=== PATIENT | female | born 1960 | race Caucasian/White ===

== ENCOUNTER 2017-02-13 16:09 | Emergency (ER) | payer SELFPAY ==
[~2017-02-13] VITALS: Ht 152.4 cm; Wt 43.7 kg
[~2017-02-13 16:09] MED LIST: ACET25TA4 PO
[2017-02-13 16:17] VITALS: BP 169/88; PULSE 100; RESP 16; TEMP 97.8; O2SAT 96
[2017-02-13 16:32] LABS: BLOOD, URINE NEG (NEG); GLUCOSE,URINE NEG (NEG); KETONE, URINE NEG (NEG); NITRITE,URINE NEG (NEG)
[2017-02-13] MEDS ORDERED: SODIUM CHLOR 0.9% 1000 ML INJ 1,000 ML IV SCH (16:37)
[2017-02-13 16:45] LABS: URINE COLOR YELLOW (YELLW/STRAW)
[2017-02-13] MEDS ORDERED: ACETAMINOPHEN/HYDROcodone 325 MG/5 MG TAB PO ONE (16:45)
[2017-02-13] MEDS ORDERED: SODIUM CHLORIDE 0.9% FLUSH 10 ML FLUSH IV FLUSH PRN (16:45)
[2017-02-13 16:47] LABS: COMMENT (UR) CULT NOT INDICATED; CULTURE IF INDICATED CULT NOT INDICATED; RBC, URINE 0-3 /hpf (0-3); SQUAMOUS EPITHELIAL CELL URINE 0-5 /hpf (0-5); WBC, URINE 0-2 /hpf (0-5)
[2017-02-13 16:55] VITALS: O2SAT 96
[2017-02-13 16:58] LABS: BASOPHIL # 0.3 TH/MM3 (0-0.2); BASOPHIL % 2.5 % (0.0-2.0); EOSINOPHIL # 0.4 TH/MM3 (0-0.4); HEMATOCRIT 44.4 % (35.0-46.0); HEMO FLAGS DIFF FINAL; LYMPHOCYTE # 2.1 TH/MM3 (1.0-4.8); MEAN CELL VOLUME 87.7 FL (80.0-100.0); MEAN CORPUSCULAR HEMOGLOBIN 28.8 PG (27.0-34.0); MEAN CORPUSCULAR HGB CONC 32.8 % (32.0-36.0); MONO % 8.6 % (0.0-8.0); NEUT % 64.9 % (16.0-70.0); PLATELET COUNT 448 TH/MM3 (150-450); RED BLOOD COUNT 5.06 MIL/MM3 (4.00-5.30); RED CELL DISTRIBUTION WIDTH 12.8 % (11.6-17.2); WHITE BLOOD COUNT 10.7 TH/MM3 (4.0-11.0)
[2017-02-13 17:10] LABS: CHLORIDE 110 MEQ/L (98-107); POTASSIUM 5.1 MEQ/L (3.5-5.1); SODIUM (NA) 137 MEQ/L (136-145)
[2017-02-13 17:14] LABS: ANION GAP 8 MEQ/L (5-15); BICARBONATE 19.5 MEQ/L (21.0-32.0); BLOOD UREA NITROGEN 16 MG/DL (7-18)
[2017-02-13 17:17] LABS: ALT (GPT) 15 U/L (10-53); AST (GOT) 26 U/L (15-37); GLOMERULAR FILTRATION RATE 95 ML/MIN (>89)
[2017-02-13 17:18] LABS: TOTAL BILIRUBIN ADULT 0.3 MG/DL (0.2-1.0)
[2017-02-13 17:19] LABS: ALKALINE PHOSPHATASE 159 U/L (45-117)
[2017-02-13] MEDS ORDERED: IOHEXOL 350 MG/ML 10 ML VIAL (for RAD DIAG) IV ONE (17:19)
--- NOTE | 2017-02-13 17:25 | PD ---
HPI Chief Complaint: Abdominal Pain Time Seen by Provider: 16:23 Travel History International Travel<30 days: No Contact w/Intl Traveler<30days: No Traveled to known affect area: No History of Present Illness HPI 46-year-old female arrives complaining of lower abdominal pain for one year. She's also had back pain for the last week or so. She notes that insertion of tampons has become somewhat problematic due to the sensation of a bulge on one side. She's had no vaginal bleeding or discharge. No urinary complaint no nausea vomiting or fever. Abdominal pain is more or less constant mild and achy. Back pain radiates down the right leg. PFSH Past Medical History Medical History: Denies Significant Hx Diminished Hearing: No Immunizations Current: Yes ?: Not Menopausal: Yes : 0 Para: 0 Past Surgical History Surgical History: No Previous Surgery Social History Alcohol Use: Yes (beer couple times per week) Tobacco Use: Yes (1 ppd) Substance Use: No Allergies-Medications (Allergen,Severity, Reaction): Coded Allergies: No Known Allergies (Unverified , 02/13/17) Reported Meds & Prescriptions Reported Meds & Active Scripts Active Lortab (Hydrocodone-Acetaminophen) 5-325 Mg Tab 1-2 Tab PO HS PRN Review of Systems Except as stated in HPI: all other systems reviewed are Neg Physical Exam Narrative GENERAL: 46-year-old female pleasant well-nourished well-developed SKIN: Focused skin assessment warm/dry. HEAD: Atraumatic. Normocephalic. EYES: Pupils equal and round. No scleral icterus. No injection or drainage. ENT: No nasal bleeding or discharge. Mucous membranes pink and moist. NECK: Trachea midline. No JVD. CARDIOVASCULAR: Regular rate and rhythm. No murmur appreciated. RESPIRATORY: No accessory muscle use. Clear to auscultation. Breath sounds equal bilaterally. GASTROINTESTINAL: Soft. No focus of tenderness. No palpable mass. MUSCULOSKELETAL: Ambulatory. No gross deformity. Minimal tenderness overlying the right iliac crest. NEUROLOGICAL: Awake and alert. No obvious cranial nerve deficits. Motor grossly within normal limits. Normal speech. 2+ DTRs. Hip flexion 5 over 5 bilaterally. He flexion and extension 5 over 5 bilaterally. Ankle flexion and extension 5 over 5 bilaterally. Great toe flexion extension 5 over 5 bilaterally. PSYCHIATRIC: Appropriate mood and affect; insight and judgment normal. Data Data Last Documented VS Vital Signs Date Time Temp Pulse Resp B/P Pulse Ox O2 Delivery O2 Flow Rate FiO2 02/13/17 18:43 92 16 152/88 95 02/13/17 16:55 Room Air 02/13/17 16:17 97.8 VS reviewed Orders Urinalysis - C+S If Indicated (02/13/17 16:20) Complete Blood Count With Diff (02/13/17 16:37) Comprehensive Metabolic Panel (02/13/17 16:37) Lipase (02/13/17 16:37) Ct Abd/Pel W Iv Contrast(Rout) (02/13/17 16:37) Iv Access Insert/Monitor (02/13/17 16:37) Ecg Monitoring (02/13/17 16:37) Oximetry (02/13/17 16:37) Sodium Chlor 0.9% 1000 Ml Inj (Ns 1000 M (02/13/17 16:37) Sodium Chloride 0.9% Flush (Ns Flush) (02/13/17 16:45) Acetamin-Hydrocod 325-5 Mg ([place] 5-325 (02/13/17 16:45) Iohexol 350 Inj (Omnipaque 350 Inj) (02/13/17 17:19) Mandatory Outpatient Referral (02/13/17 18:15) Labs Laboratory Tests Test 02/13/17 02/13/17 16:20 16:54 Urine Color YELLOW Urine Turbidity CLEAR Urine pH 6.0 Urine Specific [place] 1.007 Urine Protein NEG mg/dL Urine Glucose (UA) NEG mg/dL Urine Ketones NEG mg/dL Urine Occult Blood NEG Urine Nitrite NEG Urine Bilirubin NEG Urine Leukocyte Esterase NEG Urine RBC 0-3 /hpf Urine WBC 0-2 /hpf Urine Squamous Epithelial 0-5 /hpf Cells Microscopic Urinalysis Comment CULT NOT INDICATED White Blood Count 10.7 TH/MM3 Red Blood Count 5.06 MIL/MM3 Hemoglobin 14.6 GM/DL Hematocrit 44.4 % Mean Corpuscular Volume 87.7 FL Mean Corpuscular Hemoglobin 28.8 PG Mean Corpuscular Hemoglobin 32.8 % Concent Red Cell Distribution Width 12.8 % Platelet Count 448 TH/MM3 Mean Platelet Volume 8.1 FL Neutrophils (%) (Auto) 64.9 % Lymphocytes (%) (Auto) 20.0 % Monocytes (%) (Auto) 8.6 % Eosinophils (%) (Auto) 4.0 % Basophils (%) (Auto) 2.5 % Neutrophils # (Auto) 7.0 TH/MM3 Lymphocytes # (Auto) 2.1 TH/MM3 Monocytes # (Auto) 0.9 TH/MM3 Eosinophils # (Auto) 0.4 TH/MM3 Basophils # (Auto) 0.3 TH/MM3 CBC Comment DIFF FINAL Differential Comment Sodium Level 137 MEQ/L Potassium Level 5.1 MEQ/L Chloride Level 110 MEQ/L Carbon Dioxide Level 19.5 MEQ/L Anion Gap 8 MEQ/L Blood Urea Nitrogen 16 MG/DL Creatinine 0.65 MG/DL Estimat Glomerular Filtration 95 ML/MIN Rate Random Glucose 95 MG/DL Calcium Level 8.5 MG/DL Total Bilirubin 0.3 MG/DL Aspartate Amino Transf 26 U/L (AST/SGOT) Alanine Aminotransferase 15 U/L (ALT/SGPT) Alkaline Phosphatase 159 U/L Total Protein 7.3 GM/DL Albumin 3.1 GM/DL Lipase 147 U/L MDM Medical Decision Making Medical Screen Exam Complete: Yes Emergency Medical Condition: Yes Medical Record Reviewed: Yes Differential Diagnosis Constipation, Gastritis, Acute Cholecystitis, Biliary Colic, Pancreatitis, [place] , Hepatitis, Bowel Obstruction, Cystitis, Mesenteric Ischemia, AAA, Appendicitis , Renal Stone/Hydronephrosis, GERD, perforated viscous Narrative Course CBC & BMP Diagram 02/13/17 16:54 Anion gap is 8 LFTs and Lipase normal UA: No UTI Last 24 hours Impressions Abdomen/Pelvis CT 02/13/17 1637 Signed Impressions: Service Date/Time: Monday, February 13, 2017 17:06 - CONCLUSION: 1. Large midline pelvic mass measuring 11.4 x 9.7 x 9.1 cm consistent with uterine or ovarian neoplasm until proven otherwise. Retroperitoneal and left iliac lymphadenopathy is also noted. Additional studies such as MRI of the pelvis with contrast and PET/CT scan may be helpful for further characterization of this process if clinically indicated. 2. 7 mm low density lesion within the dome of the liver which is too small for accurate density measurement. Dev Jimenez MD case d/w Dr Cadena for nurse obgyn-oncology who is willing to see the patient as an outpatient. Details of work up discussed with the patient who states she will follow up with Dr. Cadena. We reviewed possibility of pelvic neoplasia and patient is aware she may have pelvic cancer. Diagnosis Primary Impression: Pelvic mass in female Referrals: Kaylah Cadena MD Additional Instructions: PLEASE CALL DR CADENA' OFFICE A CALL TOMORROW MORNING FOR A PROMPT APPOINTMENT. IF YOU RUN INTO DIFFICULTY ESTABLISHING FOLLOW UP, RETURN TO THE ER. IF YOU DEVELOP WEAKNESS, INCONTINENCE OR A CHANGE IN BOWEL/BLADDER HABITS, OR NUMBNESS/TINGLING IN THE UNDERWEAR AREA, RETURN TO THE ER RIGHT AWAY. Med/Other Pt SpecificInfo: No Change to Meds Scripts Hydrocodone-Acetaminophen (Lortab)5-325 Mg Tab1-2 Tab PO HS PRN (PAIN SCALE 6 TO 10) #20 TAB Ref 0 Prov:Pablo Grewal MD 02/13/17 Disposition: 01 DISCHARGE HOME Condition: Stable Pablo Grewal MD Feb 13, 2017 17:25
--- NOTE | 2017-02-13 17:46 | RADRPT ---
EXAM DATE/TIME: 02/13/2017 17:06 [facility] COMPARISON: No previous studies available for comparison. INDICATIONS : Pelvic pain. IV CONTRAST: 80 cc Omnipaque 350 (iohexol) IV ORAL CONTRAST: No oral contrast ingested. RADIATION DOSE: 4.45 CTDIvol (mGy) MEDICAL HISTORY : None SURGICAL HISTORY : None. ENCOUNTER: Initial ACUITY: >1 yr PAIN SCALE: 5/10 LOCATION: lower quadrant TECHNIQUE: Volumetric scanning of the abdomen and pelvis was performed. Using automated exposure control and ad justment of the mA and/or kV according to patient size, radiation dose was kept as low as reasonably achievable to obtain optimal diagnostic quality images. DICOM format image data is available electro nically for review and comparison. FINDINGS: There is evidence of a large midline pelvic mass measuring 11.4 x 9.7 x 9.1 cm. Differential diagnos is includes uterine or ovarian neoplasm. Retroperitoneal and left iliac lymphadenopathy is noted. Th e largest retroperitoneal lymph nodes are noted within the aortocaval space measuring 2.6 x 2.0 cm an d the left paraaortic space measuring 1.5 x 0.9 cm. The largest left iliac lymphadenopathy measures 2.0 x 2.0 cm and 2.7 x 1.7 cm. PET/CT scan would be helpful for further evaluation of these findings and can be performed as an outpatient if requested. MRI of the pelvis with contrast may also be use ful to differentiate between uterine and ovarian neoplasm if clinically indicated. The liver is enlarged. There is a 7 mm low density lesion within the dome of the liver which is indet erminate due to its small size. Focal fatty infiltration is noted adjacent to the falciform ligament . No biliary ductal dilatation is noted. The spleen is normal. The pancreas is also normal. The ga llbladder is unremarkable. The adrenal glands are normal bilaterally. The kidneys enhance briskly a nd demonstrate no evidence of focal mass or hydronephrosis. The visualized bowel loops are unremarka ble. The urinary bladder is nondistended and displaced anteriorly secondary to the large pelvic mass . The visualized lung bases are clear. The bony structures are unremarkable. The abdominal aorta is calcified but is not aneurysmally dilated. The inferior vena cava is unremarkable. CONCLUSION: 1. Large midline pelvic mass measuring 11.4 x 9.7 x 9.1 cm consistent with uterine or ovarian neoplas m until proven otherwise. Retroperitoneal and left iliac lymphadenopathy is also noted. Additional studies such as MRI of the pelvis with contrast and PET/CT scan may be helpful for further characteri zation of this process if clinically indicated. 2. 7 mm low density lesion within the dome of the liver which is too small for accurate density measu rement. Dev Jimenez MD on February 13, 2017 at 17:27 Board Certified Radiologist. This report was verified electronically.
[2017-02-13 18:43] VITALS: BP 152/88
[2017-02-13] MEDS ORDERED: HYDR-3533 PO (18:43)
== END 2017-02-13 18:46 | disposition home or self-care (01) ==
LOC: PHED 16:09
DX: R19.00 Intra-abdominal and pelvic swelling, mass and lump, unspecified site (principal); F17.200 Nicotine dependence, unspecified, uncomplicated
CPT/HCPCS: 74177; 80053; 81001; 83690; 85025; 96360; 99285; J7030; Q9967

== ENCOUNTER 2017-03-18 11:26 | Inpatient (IN) | payer OTHER ==
[2017-03-18] VITALS (10 sets, daily range): BP systolic 112–156; BP diastolic 70–91; PULSE 105–125; RESP 16–20; TEMP 97.5–100.7; O2SAT 92–97
[~2017-03-18] VITALS: Ht 152.4 cm; Wt 48.8 kg
[~2017-03-18 11:26] MED LIST changes: -ACET25TA4 PO; +HYDR-3533 PO
[2017-03-18] MEDS ORDERED: VANCOMYCIN INJ 600 MG in SODIUM CHLOR 0.9% 250 ML INJ 250 ML IV STA (12:07)
[2017-03-18] MEDS ORDERED: metroNIDAZOLE 500 MG INJ 100 ML IV STA (12:07)
[2017-03-18] MEDS ORDERED: PIPERACIL-TAZO 4.5 GM PREMIX 100 ML IV STA (12:07)
[2017-03-18 12:14] LABS: AUTOMATED NEUTROPHIL # 20.3 TH/MM3 (1.8-7.7); BASOPHIL # 0.2 TH/MM3 (0-0.2); BASOPHIL % 1.1 % (0.0-2.0); HEMATOCRIT 42.3 % (35.0-46.0); LYMPHOCYTE # 0.4 TH/MM3 (1.0-4.8); MEAN CELL VOLUME 85.8 FL (80.0-100.0); MEAN CORPUSCULAR HEMOGLOBIN 28.1 PG (27.0-34.0); MEAN CORPUSCULAR HGB CONC 32.8 % (32.0-36.0); MONO % 2.8 % (0.0-8.0); NEUT % 94.1 % (16.0-70.0); PLATELET COUNT 295 TH/MM3 (150-450); RED BLOOD COUNT 4.94 MIL/MM3 (4.00-5.30); RED CELL DISTRIBUTION WIDTH 12.4 % (11.6-17.2); WHITE BLOOD COUNT 21.5 TH/MM3 (4.0-11.0)
--- NOTE | 2017-03-18 12:14 | PD ---
HPI Chief Complaint: Abdominal Pain Time Seen by Provider: 11:44 Travel History International Travel<30 days: No Contact w/Intl Traveler<30days: No Traveled to known affect area: No History of Present Illness HPI This 57-year-old female is complaining of abdominal pain and vomiting. This lady has been having vaginal bleeding for about a year and a half. She was found to have a large pelvic mass. On March 14 she had examination under anesthesia, cystoscopy and proctoscopy as well as a biopsy of the mass via endocervical/endometrial biopsy. During cystoscopy the bladder never distended and there was concern that there may be a defect in the bladder possibly communicating with the tumor or the peritoneal cavity. Proctosigmoidoscopy July 03 centimeters showed extrinsic compression which precluded evaluation beyond that point. Biopsy of the mass was done and the results come back. 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 The patient says she has not been able to hold anything down since leaving the hospital. She is complaining of diffuse abdominal pain. PFSH Past Medical History Cancer: No Cardiovascular Problems: No Diabetes: No Diminished Hearing: No Endocrine: No Gastrointestinal Disorders: Yes (abdominal pain ) Genitourinary: No Hepatitis: No Hiatal Hernia: No Immune Disorder: No Musculoskeletal: No Neurologic: No Psychiatric: No Immunizations Current: Yes Thyroid Disease: No Influenza Vaccination: No ?: Not Menopausal: Yes : 0 Para: 0 Dilation and Curettage (D&C): Yes (monday) Past Surgical History Abdominal Surgery: No AICD: No Cardiac Surgery: No Ear Surgery: No Endocrine Surgery: No Eye Surgery: No Genitourinary Surgery: No Gynecologic Surgery: No Joint Replacement: No Oral Surgery: Yes (tonsillectomy) Pacemaker: No Thoracic Surgery: No Social History Alcohol Use: No Tobacco Use: Yes (1 ppd) Substance Use: No Allergies-Medications (Allergen,Severity, Reaction): Uncoded Allergies: ADHESIVES (Allergy, Unknown, rash, 03/14/17) Reported Meds & Prescriptions Reported Meds & Active Scripts Active Lortab (Hydrocodone-Acetaminophen) 5-325 Mg Tab 1-2 Tab PO HS PRN Review of Systems General / Constitutional: No: Fever, Chills Eyes: No: Diploplia, Blurred Vision HENT: No: Headaches, Vertigo Cardiovascular: No: Chest Pain or Discomfort, Palpitations Respiratory: No: Cough Gastrointestinal: Positive: Nausea, Vomiting, Diarrhea, Abdominal Pain Genitourinary: Positive: Vaginal Bleeding, No: Urgency, Frequency Musculoskeletal: No: Myalgias, Arthralgias Skin: No Rash Neurologic: No: Weakness, Dizziness Endocrine: No: Cold Intolerance Hematologic/Lymphatic: No: Easy Bruising Physical Exam Narrative GENERAL: [-] And chronically ill-appearing female SKIN: Focused skin assessment warm/dry. HEAD: Atraumatic. Normocephalic. EYES: Pupils equal and round. No scleral icterus. No injection or drainage. ENT: No nasal bleeding or discharge. Mucous membranes pink and moist. NECK: Trachea midline. No JVD. CARDIOVASCULAR: Regular rate and rhythm. No murmur appreciated. RESPIRATORY: No accessory muscle use. Clear to auscultation. Breath sounds equal bilaterally. GASTROINTESTINAL: Abdomen flat it is not distended. It is diffusely tender MUSCULOSKELETAL: No obvious deformities. No clubbing. No cyanosis. No edema. NEUROLOGICAL: Awake and alert. No obvious cranial nerve deficits. Motor grossly within normal limits. Normal speech. PSYCHIATRIC: Appropriate mood and affect; insight and judgment normal. Data Data Last Documented VS Vital Signs Date Time Temp Pulse Resp B/P (MAP) Pulse Ox O2 Delivery O2 Flow Rate FiO2 03/18/17 13:25 99.0 114 20 141/89 (106) 93 Room Air Orders Orders Complete Blood Count With Diff (03/18/17 11:55) Comprehensive Metabolic Panel (03/18/17 11:55) Prothrombin Time / Inr (Pt) (03/18/17 11:55) Act Partial Throm Time (Ptt) (03/18/17 11:55) Lactic Acid Sepsis Protocol (03/18/17 11:55) Urinalysis - C+S If Indicated (03/18/17 11:55) Blood Culture (03/18/17 11:55) Chest, Single Ap (03/18/17 11:55) Ecg Monitoring (03/18/17 11:55) Iv Access Insert/Monitor (03/18/17 11:55) Oximetry (03/18/17 11:55) Sodium Chlor 0.9% 1000 Ml Inj (Ns 1000 M (03/18/17 12:15) Sodium Chlor 0.9% 1000 Ml Inj (Ns 1000 M (03/18/17 12:15) Ondansetron Inj (Zofran Inj) (03/18/17 12:15) Hydromorphone Pf Inj (Dilaudid Pf Inj) (03/18/17 12:15) Ct Abd/Pel W Iv Contrast(Rout) (03/18/17 12:05) Type And Screen (03/18/17 12:05) Vancomycin Inj (Vancomycin Inj) (03/18/17 12:07) Piperacil-Tazo 4.5 Gm Premix (Zosyn 4.5 (03/18/17 12:07) Metronidazole 500 Mg Inj (Flagyl 500 Mg (03/18/17 12:07) Sodium Chlor 0.9% 1000 Ml Inj (Ns 1000 M (03/18/17 12:45) Sodium Chlor 0.9% 1000 Ml Inj (Ns 1000 M (03/18/17 12:45) Urine Culture (03/18/17 12:55) Labs Laboratory Tests Test 03/18/17 11:55 03/18/17 12:55 White Blood Count 21.5 TH/MM3 Red Blood Count 4.94 MIL/MM3 Hemoglobin 13.9 GM/DL Hematocrit 42.3 % Mean Corpuscular Volume 85.8 FL Mean Corpuscular Hemoglobin 28.1 PG Mean Corpuscular Hemoglobin Concent 32.8 % Red Cell Distribution Width 12.4 % Platelet Count 295 TH/MM3 Mean Platelet Volume 8.5 FL Neutrophils (%) (Auto) 94.1 % Lymphocytes (%) (Auto) 2.0 % Monocytes (%) (Auto) 2.8 % Eosinophils (%) (Auto) 0.0 % Basophils (%) (Auto) 1.1 % Neutrophils # (Auto) 20.3 TH/MM3 Lymphocytes # (Auto) 0.4 TH/MM3 Monocytes # (Auto) 0.6 TH/MM3 Eosinophils # (Auto) 0.0 TH/MM3 Basophils # (Auto) 0.2 TH/MM3 CBC Comment AUTO DIFF Differential Comment AUTO DIFF CONFIRMED Prothrombin Time 12.7 SEC Prothromb Time International Ratio 1.1 RATIO Activated Partial Thromboplast Time 35.8 SEC Blood Urea Nitrogen 21 MG/DL Creatinine 0.86 MG/DL Random Glucose 155 MG/DL Total Protein 7.6 GM/DL Albumin 2.8 GM/DL Calcium Level 8.7 MG/DL Alkaline Phosphatase 162 U/L Aspartate Amino Transf (AST/SGOT) 28 U/L Alanine Aminotransferase (ALT/SGPT) 25 U/L Total Bilirubin 0.4 MG/DL Sodium Level 126 MEQ/L Potassium Level 3.5 MEQ/L Chloride Level 93 MEQ/L Carbon Dioxide Level 20.7 MEQ/L Anion Gap 12 MEQ/L Estimat Glomerular Filtration Rate 69 ML/MIN Lactic Acid Level 1.3 mmol/L Urine Collection Type CATH Urine Color YELLOW Urine Turbidity CLOUDY Urine pH 6.0 Urine Specific [place] 1.016 Urine Protein 100 mg/dL Urine Glucose (UA) NEG mg/dL Urine Ketones 15 mg/dL Urine Occult Blood LARGE Urine Nitrite POS Urine Bilirubin NEG Urine Leukocyte Esterase MOD Urine RBC 0-3 /hpf Urine WBC 25-49 /hpf Urine Bacteria MANY /hpf Microscopic Urinalysis Comment CULTURE INDICATED MDM Medical Decision Making Medical Screen Exam Complete: Yes Emergency Medical Condition: Yes Medical Record Reviewed: Yes Differential Diagnosis Differential includes sepsis, dehydration Narrative Course Chest x-ray shows bilateral emphysematous changes, left greater than right. It is similar to her previous x-ray area hemoglobin is 13.9 with a white count of 21.8. Sodium is 126 with potassium of 3.5. V1 is 21 with creatinine of 0.8. Lactate level is 1.3. Patient has been started on IV fluids and antibiotics. Urinalysis shows 25-[address] shows large pelvic mass not significantly changed. The right ureter is now obstructed distally there is mild hydronephrosis with associated swelling in the leg nephrogram on the right there is trace free fluid in the cul-de-sac no perceptible abscess Esteban Mckenzie MD Mar 18, 2017 12:14
[2017-03-18 12:15] LABS: HEMO FLAGS AUTO DIFF
[2017-03-18] MEDS ORDERED: ONDANSETRON HCL 4 MG/2 ML VIAL IV PUSH ONE (12:15)
[2017-03-18] MEDS ORDERED: HYDROmorphone HCL PF 1 MG/ML VIAL IV PUSH ONE ×2 (12:15→14:00)
[2017-03-18] MEDS ORDERED: SODIUM CHLOR 0.9% 1000 ML INJ 1,000 ML IV ONE ×4 (12:15→12:45)
[2017-03-18 12:22] LABS: CHLORIDE 93 MEQ/L (98-107); POTASSIUM 3.5 MEQ/L (3.5-5.1); SODIUM (NA) 126 MEQ/L (136-145)
--- NOTE | 2017-03-18 12:23 | RADRPT ---
EXAM DATE/TIME: 03/18/2017 12:10 [facility] COMPARISON: CHEST PA & LAT, March 09, 2017, 11:36. INDICATIONS : Chest pain, abdomen pain, vomiting, fever MEDICAL HISTORY : None. SURGICAL HISTORY : None. ENCOUNTER: Initial ACUITY: 4 - 6 days PAIN SCORE: 8/10 LOCATION: Bilateral chest FINDINGS: Left greater than right upper lobe predominant emphysema again noted. No acute infiltrate. No pleural effusion or pneumothorax. Heart size stable, within normal limits. CONCLUSION: Emphysema. No evidence of acute cardiopulmonary disease. Mateo Costa MD on March 18, 2017 at 12:20 Board Certified Radiologist. This report was verified electronically.
[2017-03-18 12:25] LABS: ANION GAP 12 MEQ/L (5-15); BICARBONATE 20.7 MEQ/L (21.0-32.0)
[2017-03-18 12:26] LABS: BLOOD UREA NITROGEN 21 MG/DL (7-18)
[2017-03-18 12:27] LABS: APTT (PATIENT) 35.8 SEC (24.3-30.1); INTERNATIONAL NORMALIZED RATIO 1.1 RATIO; PROTHROMBIN TIME - PATIENT 12.7 SEC (9.8-11.6)
[2017-03-18 12:28] LABS: ALT (GPT) 25 U/L (10-53); AST (GOT) 28 U/L (15-37); GLOMERULAR FILTRATION RATE 69 ML/MIN (>89)
[2017-03-18 12:30] LABS: TOTAL BILIRUBIN ADULT 0.4 MG/DL (0.2-1.0)
[2017-03-18 12:31] LABS: ALKALINE PHOSPHATASE 162 U/L (45-117)
[2017-03-18 12:45] LABS: SCAN/DIFF AUTO DIFF CONFIRMED
[2017-03-18 13:01] LABS: BLOOD, URINE LARGE (NEG); GLUCOSE,URINE NEG (NEG); KETONE, URINE 15 mg/dL (NEG); NITRITE,URINE POS (NEG)
[2017-03-18 13:03] LABS: METHOD OF COLLECTION CATH; URINE COLOR YELLOW (YELLW/STRAW)
[2017-03-18 13:06] LABS: BACTERIA, URINE MANY /hpf; COMMENT (UR) CULTURE INDICATED; CULTURE IF INDICATED CULTURE INDICATED; RBC, URINE 0-3 /hpf (0-3)
--- NOTE | 2017-03-18 13:34 | RADRPT ---
EXAM DATE/TIME: 03/18/2017 13:02 [facility] COMPARISON: CT ABDOMEN & PELVIS W CONTRAST, February 13, 2017, 17:06. INDICATIONS : Vaginal bleeding post D&C, abdominal pain.Nausea, vomiting. IV CONTRAST: 90 cc Omnipaque 350 (iohexol) IV ORAL CONTRAST: No oral contrast ingested. RADIATION DOSE: 4.44 CTDIvol (mGy) MEDICAL HISTORY : Newly diagnosed with tumor in her pelvis. SURGICAL HISTORY : Tonsillectomy. DC this past Monday for post menopausal bleeding. ENCOUNTER: Initial ACUITY: 1 day PAIN SCALE: 8/10 LOCATION: Bilateral abdomen TECHNIQUE: Volumetric scanning of the abdomen and pelvis was performed. Using automated exposure control and ad justment of the mA and/or kV according to patient size, radiation dose was kept as low as reasonably achievable to obtain optimal diagnostic quality images. DICOM format image data is available electro nically for review and comparison. FINDINGS: Large heterogeneous pelvic mass again noted, measures proximally 10.7 x 11.1 x 9.8 cm, not significan tly larger in the interim. There is associated mass effect on adjacent pelvic structures, including t he urinary bladder. There is some air in the urinary bladder, nonspecific but presumably from recent instrumentation/catheterization. There is trace free fluid in the pelvic cul-de-sac, new. Mild hydronephrosis and hydroureter has developed on the right and appears to be related to extrinsic compression. I don't clearly see a renal or ureteral calculus. The right kidney is swollen and has a delayed nephrogram relative to the left. Retroperitoneal lymphadenopathy again noted. Just above the level of the bifurcation is an aortocaval lymph node that measures approximately 2.9 x 3.0 cm in size and causes some narrowing of the adjacen t IVC, similar to before. Further superior, there is a 2.0 x 3.0 cm retrocaval lymph node that encase s and narrows the right renal arteries, series 2 image 23. There is a dual origin of the right renal artery. The more inferior renal artery is more prominently narrowed. There is a 18 x 27 mm left commo n iliac lymph node, also similar to before. Liver, spleen, pancreas, adrenal glands and left kidney are without acute abnormality. Subcentimeter hypodensity of the right hepatic lobe is stable, most likely a benign cyst. Clear lung bases. No lytic or sclerotic lesion seen of the visualized osseous structures. CONCLUSION: 1. Large heterogeneous pelvic mass is not significantly changed in size. 2. Right ureter is now obstructed distally. Mild hydronephrosis now seen and with associated swelling and delayed nephrogram of the right kidney. Retroperitoneal lymphadenopathy narrowing the 2 right re nal arteries may also be contributing to the delayed nephrogram. 3. Metastatic retroperitoneal lymphadenopathy again noted, similar to before. Most of the nodes appea r partly necrotic. 4. Trace free fluid now seen in the pelvic cul-de-sac. No perceptible abscess. 5. Subcentimeter hypodensity of the liver is unchanged and most likely a benign cyst. Mateo Costa MD on March 18, 2017 at 13:19 Board Certified Radiologist. This report was verified electronically.
[2017-03-18] MEDS ORDERED: IOHEXOL 350 MG/ML 10 ML VIAL (for RAD DIAG) IVCONTRAST ONE (13:45)
[2017-03-18] MEDS ORDERED: Vancomycin Consult Pharmacy 1 EA OTHER SCH (14:15)
[2017-03-18] MEDS ORDERED: HYDROmorphone HCL PF 1 MG/ML VIAL IV PRN (14:15)
[2017-03-18] MEDS ORDERED: NALOXONE HCL 0.4 MG/ML AMP IV PRN (14:15)
[2017-03-18] MEDS: PANTOPRAZOLE SODIUM 40 MG VIAL IV PUSH SCH (15:24)
--- NOTE | 2017-03-18 16:12 | HHI.HP ---
HPI Service [facility] Primary Care Physician Kristan Hagan MD Admission Diagnosis UTI, SEPSIS, R HYDRONEPHROSIS Diagnoses: Chief Complaint: Nausea, vomiting and abdominal pain Travel History International Travel<30 Days: No Contact w/Intl Traveler <30 Da: No Traveled to Known Affected Are: No History of Present Illness This is a 57-year-old female who has been recently diagnosed with uterine carcinosarcoma. 4 days ago under anesthesia, she had cystoscopy, proctoscopy and endocervical/endometrial mass biopsy because of chronic vaginal bleeding. During cystoscopy, the bladder never distended and there was concern that there may be a defect in the bladder possibly communicating with the tumor or the peritoneal cavity. Proctosigmoidoscopy showed extrinsic compression which precluded evaluation beyond that point. Patient returns to the emergency department because of persistent nausea, vomiting and constant sharp severe generalized abdominal pain associated with burning upon urination, weakness, dizziness and feeling warm. Repeat CT of the abdomen and pelvis shows pelvic mass not significant change but right ureter is not obstructed with mild hydronephrosis and trace fluid in the cul-de-sac. Dr. Clifton recommended transfer to the main hospital and admission to the medical service and consult to . When I examined the patient, she complained of difficulty breathing. She was tachypneic with coarse breath sounds with crackles all the way up. She received a total of 4 L in the emergency department. All other systems reviewed negative Review of Systems Except as stated in HPI: all other systems reviewed are Neg Past Family Social History Past Medical History As previously mentioned Past Surgical History As previously mentioned. Tonsillectomy Reported Medications Lortab (Hydrocodone-Acetaminophen) 5-325 Mg Tab 1-2 Tab PO HS PRN Allergies: Uncoded Allergies: ADHESIVES (Allergy, Unknown, rash, 03/14/17) Family History No cancer Social History Condition smoke a pack per day. Does not drink Physical Exam Vital Signs Vital Signs Date Time Temp Pulse Resp B/P (MAP) Pulse Ox O2 Delivery O2 Flow Rate FiO2 03/18/17 16:05 94 Nasal Cannula 2.00 03/18/17 15:12 99.2 105 18 115/74 (88) 94 Nasal Cannula 2.00 03/18/17 14:39 109 20 117/70 (86) 95 Room Air 03/18/17 13:25 99.0 114 20 141/89 (106) 93 Room Air 03/18/17 12:32 96 Room Air 03/18/17 12:32 110 16 150/91 (110) 96 Room Air 03/18/17 11:36 98.5 120 18 143/71 (95) 94 Physical Exam GENERAL: This is a well-nourished, well-developed patient, in distress due to pain and shortness of breath SKIN: No rashes, ecchymoses or lesions. Cool and dry. HEAD: Atraumatic. Normocephalic. No temporal or scalp tenderness. EYES: Pupils equal round and reactive. Extraocular motions intact. No scleral icterus. No injection or drainage. ENT: Nose without bleeding, purulent drainage or septal hematoma. Throat without erythema, tonsillar hypertrophy or exudate. Uvula midline. Airway patent. NECK: Trachea midline. No JVD or lymphadenopathy. Supple, nontender, no meningeal signs. CARDIOVASCULAR: Tachycardic. RESPIRATORY: Coarse breath sounds with crackles all the way up GASTROINTESTINAL: Abdomen soft, generalized tenderness, nondistended. No guarding. MUSCULOSKELETAL: Extremities without clubbing, cyanosis, or edema. No joint tenderness, effusion, or edema noted. No calf tenderness. Negative Homans sign bilaterally. NEUROLOGICAL: Awake and alert. Cranial nerves II through XII intact. Motor and sensory grossly within normal limits. Five out of 5 muscle strength in all muscle groups. Normal speech. Laboratory Laboratory Tests Test 03/18/17 11:55 03/18/17 12:55 White Blood Count 21.5 Red Blood Count 4.94 Hemoglobin 13.9 Hematocrit 42.3 Mean Corpuscular Volume 85.8 Mean Corpuscular Hemoglobin 28.1 Mean Corpuscular Hemoglobin Concent 32.8 Red Cell Distribution Width 12.4 Platelet Count 295 Mean Platelet Volume 8.5 Neutrophils (%) (Auto) 94.1 Lymphocytes (%) (Auto) 2.0 Monocytes (%) (Auto) 2.8 Eosinophils (%) (Auto) 0.0 Basophils (%) (Auto) 1.1 Neutrophils # (Auto) 20.3 Lymphocytes # (Auto) 0.4 Monocytes # (Auto) 0.6 Eosinophils # (Auto) 0.0 Basophils # (Auto) 0.2 CBC Comment AUTO DIFF Differential Comment AUTO DIFF CONFIRMED Prothrombin Time 12.7 Prothromb Time International Ratio 1.1 Activated Partial Thromboplast Time 35.8 Blood Urea Nitrogen 21 Creatinine 0.86 Random Glucose 155 Total Protein 7.6 Albumin 2.8 Calcium Level 8.7 Alkaline Phosphatase 162 Aspartate Amino Transf (AST/SGOT) 28 Alanine Aminotransferase (ALT/SGPT) 25 Total Bilirubin 0.4 Sodium Level 126 Potassium Level 3.5 Chloride Level 93 Carbon Dioxide Level 20.7 Anion Gap 12 Estimat Glomerular Filtration Rate 69 Lactic Acid Level 1.3 Urine Collection Type CATH Urine Color YELLOW Urine Turbidity CLOUDY Urine pH 6.0 Urine Specific [place] 1.016 Urine Protein 100 Urine Glucose (UA) NEG Urine Ketones 15 Urine Occult Blood LARGE Urine Nitrite POS Urine Bilirubin NEG Urine Leukocyte Esterase MOD Urine RBC 0-3 Urine WBC 25-49 Urine Bacteria MANY Microscopic Urinalysis Comment CULTURE INDICATED Date/Time Source Procedure Growth Status 03/18/17 12:05 Blood Peripheral Aerobic Blood Culture Pending Received 03/18/17 12:05 Blood Peripheral Anaerobic Blood Culture Pending Received 03/18/17 12:55 Urine Catheterized Urine Urine Culture Pending Received Result Diagram: 03/18/17 1155 03/18/17 1155 Imaging Last Impressions Abdomen/Pelvis CT 03/18/17 1205 Signed Impressions: Service Date/Time: Saturday, March 18, 2017 13:02 - CONCLUSION: 1. Large heterogeneous pelvic mass is not significantly changed in size. 2. Right ureter is now obstructed distally. Mild hydronephrosis now seen and with associated swelling and delayed nephrogram of the right kidney. Retroperitoneal lymphadenopathy narrowing the 2 right renal arteries may also be contributing to the delayed nephrogram. 3. Metastatic retroperitoneal lymphadenopathy again noted, similar to before. Most of the nodes appear partly necrotic. 4. Trace free fluid now seen in the pelvic cul-de-sac. No perceptible abscess. 5. Subcentimeter hypodensity of the liver is unchanged and most likely a benign cyst. Mateo Costa MD Chest X-Ray 03/18/17 1155 Signed Impressions: Service Date/Time: Saturday, March 18, 2017 12:10 - CONCLUSION: Emphysema. No evidence of acute cardiopulmonary disease. MD Carlos Will VTE Risk Assessment Caprini VTE Risk Assessment: Mod/High Risk (score >= 2) Caprini Risk Assessment Model Point Value = 1 Point Value = 2 Point Value = 3 Point Value = 5 Age 41-60 Minor surgery BMI > 25 kg/m2 Swollen legs Varicose veins or History of unexplained or recurrent spontaneous Oral contraceptives or hormone replacement Sepsis (< 1 month) Serious lung disease, including pneumonia (< 1 month) Abnormal pulmonary function Acute myocardial infarction Congestive heart failure (< 1 month) History of inflammatory bowel disease Medical patient at bed rest Age 61-74 Arthroscopic surgery Major open surgery (> 45 min) Laparoscopic surgery (> 45 min) Malignancy Confined to bed (> 72 hours) Immobilizing plaster cast Central venous access Age >= 75 History of VTE Family history of VTE Factor V Leiden Prothrombin [id number] Lupus anticoagulant Anticardiolipin antibodies Elevated serum homocysteine Heparin-induced thrombocytopenia Other congenital or acquired thrombophilia Stroke (< 1 month) Elective arthroplasty Hip, pelvis, or leg fracture Acute spinal cord injury (< 1 month) Prophylaxis Regimen Total Risk Factor Score Risk Level Prophylaxis Regimen 0-1 Low Early ambulation 2 Moderate Order ONE of the following: *Sequential Compression Device (SCD) *Heparin 5000 units SQ BID 3-4 Higher Order ONE of the following medications: *Heparin 5000 units SQ TID *Enoxaparin/Lovenox 40 mg SQ daily (WT < 150 kg, CrCl > 30 mL/min) *Enoxaparin/Lovenox 30 mg SQ daily (WT < 150 kg, CrCl > 10-29 mL/min) *Enoxaparin/Lovenox 30 mg SQ BID (WT < 150 kg, CrCl > 30 mL/min) AND/OR *Sequential Compression Device (SCD) 5 or more Highest Order ONE of the following medications: *Heparin 5000 units SQ TID (Preferred with Epidurals) *Enoxaparin/Lovenox 40 mg SQ daily (WT < 150 kg, CrCl > 30 mL/min) *Enoxaparin/Lovenox 30 mg SQ daily (WT < 150 kg, CrCl > 10-29 mL/min) *Enoxaparin/Lovenox 30 mg SQ BID (WT < 150 kg, CrCl > 30 mL/min) AND *Sequential Compression Device (SCD) Assessment and Plan Problem List: (1) Post-menopausal bleeding ICD Code: N95.0 - Postmenopausal bleeding Status: Acute (2) Pelvic mass in female ICD Code: R19.00 - Pelvic mass in female Status: Acute Assessment and Plan This is a 57-year-old female who has been recently diagnosed with uterine carcinosarcoma. 4 days ago under anesthesia, she had cystoscopy, proctoscopy and endocervical/endometrial mass biopsy because of chronic vaginal bleeding. During cystoscopy, the bladder never distended and there was concern that there may be a defect in the bladder possibly communicating with the tumor or the peritoneal cavity. Proctosigmoidoscopy showed extrinsic compression which precluded evaluation beyond that point. Patient returns to the emergency department because of persistent nausea, vomiting and constant sharp severe generalized abdominal pain associated with burning upon urination, weakness, dizziness and feeling warm. Repeat CT of the abdomen and pelvis shows pelvic mass not significant change but right ureter is not obstructed with mild hydronephrosis and trace fluid in the cul-de-sac. Sepsis secondary to UTI. Possible fistula involving the bladder with the tumor or peritoneal cavity. Patient received IV vancomycin and Zosyn which we will continue. Follow-up blood and urine cultures. Hyponatremia secondary to vomiting. Continue normal saline infusion. Repeat BMP and magnesium in the morning Uterine cancer with obstructive uropathy. Pain management with IV Dilaudid. Consult for stenting or nephrostomy tube and radiation oncology DVT prophylaxis with SCD. Pharmacological prophylaxis contraindicated at this time secondary to ongoing [employer] bleeding Discussed Condition With Patient, ER staff and Boubacar Alfaro MD Mar 18, 2017 16:12
[2017-03-18] MEDS ORDERED: RESP: ALBUTEROL 0.63 MG/3 ML NEB (PRN) NEB (16:15)
[2017-03-18] MEDS ORDERED: FUROSEMIDE 20 MG/2 ML VIAL IV PUSH ONE (16:15)
[2017-03-18] MEDS ORDERED: POTASSIUM CHLOR 20 MEQ PREMIX 100 ML IV ONE (16:15)
--- NOTE | 2017-03-18 16:32 | RADRPT ---
EXAM DATE/TIME: 03/18/2017 16:21 [facility] COMPARISON: CHEST SINGLE AP, March 18, 2017, 12:10. INDICATIONS : Congestive heart failure. MEDICAL HISTORY : Emphysema. SURGICAL HISTORY : None. ENCOUNTER: Subsequent ACUITY: 4 - 6 days PAIN SCORE: 9/10 LOCATION: Bilateral chest FINDINGS: Single AP portable upright view the chest again demonstrates an area of bullous emphysema within the left upper lobe. The remainder of the lungs are clear. Heart size is normal. Pulmonary vasculature is normal. Osseous structures are unremarkable. CONCLUSION: Stable appearance of bullous emphysema involving the left upper lobe. No evidence of acute cardiopulm onary disease. No radiographic findings to suggest congestive heart failure. Sonal Allen MD on March 18, 2017 at 16:29 Board Certified Radiologist. This report was verified electronically.
--- NOTE | 2017-03-18 17:53 | MB ---
cc: YAJAIRA CADENA MD, KARLA A. MD RAO, SURYA P. MD ABANDO,BOUBACAR [place] MD DATE OF CONSULTATION 03/18/[address] Boubacar Goss. REASON FOR CONSULTATION The patient known to you with large pelvic tumor. REASON FOR ADMISSION Sepsis, pain, failure to thrive, nausea, vomiting, dehydration. HISTORY OF PRESENT ILLNESS This is a 57-year-old female who we just recently met in the office in recent weeks, found on exam and imaging to have an extensive solid pelvic mass that occupied the entire pelvis with extrinsic compression on all structures seemingly extending from sidewall to sidewall. There is also significant retroperitoneal adenopathy some of which is partially necrotic. The adenopathy extends from the pelvis as well as the periaortic and pericaval region including adenopathy near the renal vessels with some narrowing of the renal vessels. Tissue diagnosis was not obtained yet when we met her in recent office consult and so this week she underwent biopsies of the central pelvic mass. The exam confirmed a large fixed mass in the pelvis extending from pelvic sidewall to pelvic sidewall of probable uterine origin. The cervix itself was small and appeared normal. The uterus was completely replaced with tumor. Pathology returned poorly differentiated malignant neoplasm, necrotic and fibrotic tissue and pattern and staining suggests that this may be a carcinosarcoma. Cystoscopy was unable to clearly visualize the bladder, unable to adequately distend the bladder suggesting that there might be tumor invasion into the bladder or communication between the bladder and the peritoneal cavity. Proctoscopy was able to visualize to a depth of 11 cm and, after that, the large fixed tumor precluded visibility above 11 cm with profound extrinsic compression on the bowel, possible invasion into the bowel. She has been feeling poorly for many weeks, but reports in the last day or so the pain worsened in her pelvis, abdomen and referred to her back and she has had nausea with vomiting, not able to keep any liquids down. As she was feeling worse, she presented to the emergency room. She is seen in the emergency room where imaging is repeated which shows the aforementioned findings but also a change from a recent prior scan is that there is now hydronephrosis, partial obstruction to the right ureter. The large mass and adenopathy is again noted. A small amount of fluid is noted in the pelvic cul-de-sac. There is no intraperitoneal free air. No obvious intraperitoneal bleeding. Labs on admission are notable for an elevated white count at 21.5, H&H are 13.9 and 42.3, platelet count 295. She has a shift to the neutrophil count 94%. Electrolytes are notable for a low sodium 126, BUN and creatinine are 21 and 0.86, potassium 3.5 and transaminases are not elevated, alkaline phosphatase 162. Cultures have been drawn, results pending, of the urine and blood. She is seen now in the emergency room in consultation for further evaluation and recommendations regarding these findings. PAST MEDICAL HISTORY 1. Chronic obstructive pulmonary disease/emphysema and asthma 2. Recent diagnosis of uterine carcinosarcoma with extensive disease and metastasis as described above. PAST SURGICAL HISTORY Remarkable for cystoscopy, proctoscopy, biopsies. SOCIAL HISTORY She is . She is a regular user of tobacco. FAMILY HISTORY Noncontributory from an oncology standpoint. GYNECOLOGIC HISTORY As above. Recent diagnosis of uterine carcinosarcoma. She went through menopause age 48. ALLERGIES NO KNOWN DRUG ALLERGIES. MEDICATIONS Percocet. REVIEW OF SYSTEMS As per history of present illness. a lot of her symptoms have been preexisting, but the nausea and vomiting, inability to keep liquids down is recent. The pelvic pain and back pain that were preexisting but they are more intense. She has had postmenopausal bleeding. She has not had any hematuria. No melanotic change or bright red blood per rectum. No chest pain or shortness of breath, although she feels anxious when she is not feeling well or when she is in pain. She does not believe she has been febrile. No joint pain or stiffness. PHYSICAL EXAMINATION VITAL SIGNS: She has been afebrile since presentation. Current temperature 99.2, pulse ranging from 85-120, respirations 16-20, blood pressure 115-153/71-89, O2 saturations 94% on 2 liters. GENERAL: She is uncomfortable, anxious in mild discomfort and distress but no cardiac or pulmonary distress. HEENT: Mucous membranes dry. Skin is dry. External lymph node survey negative. LUNGS: Clear, mild rales at the bases. CARDIOVASCULAR: Rapid regular rate and rhythm. ABDOMEN: Nonacute nontender in the right and left upper quadrant, some tenderness in the lower mid abdomen, discomfort, nonacute. BACK: There is no spinal point tenderness. There is reproducible right CVA tenderness. Mild left CVA tenderness. PELVIC: Exam deferred given exam done just a few days ago. EXTREMITIES: No palpable cords. NEUROLOGIC: Intact. Discussion is held with Mylene Jara reviewing the findings in her case today. I am sorry she is feeling poorly. It is our hope that we can address the issues and get her feeling better. I explained that acutely the most likely source of her feeling worse than baseline is an infection. It appears as though she has a urinary tract infection, quite possibly sepsis associated with urinary tract infection, as there is an obstruction and perhaps a closed loop infection in the right renal system. In talking with Dr. Goss, it is my understanding urology has been consulted to see if it is possible to pass a stent on the right side, and if not possible, then she may need a right percutaneous nephrostomy to alleviate the obstruction and probable side of infection and/or to preserve renal function. I explained that recent biopsy shows a carcinosarcoma. This confirms the tissue diagnosis that is consistent with the extensive disease that we have previously discussed and again discussed based on recent CAT scan and the overall difficult set of circumstances that this presents. I explained why hysterectomy or any surgical intervention to address the tumor is not feasible. It has grown through the wall of the uterus and cervix and infiltrated into surrounding tissues all the way to the pelvic sidewalls so much so that it is causing obstruction to the right ureter. Furthermore, there is extensive metastatic disease with retroperitoneal adenopathy including adenopathy near the renal vessels that is causing some compromise to the renal vessels. She is in favor of trying to palliate this disease aggressively. I think the first and best course of action would be to consider radiation therapy to the pelvis to try to reduce the tumor burden and prevent further ureteral obstruction and to stop the bleeding and it maybe prudent to consider radiation to the adenopathy, especially the adenopathy that is causing some compromise to the renal vessels. Accordingly, consult for radiation oncology will be placed. After maximum palliative rarely radiation has been given, we will discuss further the potential value was well as the potential difficulties using systemic chemotherapy to address the metastatic disease, but certainly are of immediate objectives are to get her feeling better to resolve the infection before any initiation of treatment for the cancer. Discussion ensued, questions were answered. She expressed good understanding. ASSESSMENT 1. Stage IV uterine carcinosarcoma with the extent of disease as described above. 2. Probable urosepsis right hydronephrosis due to the pelvic tumor. 3. I believe her symptoms are either directly or indirectly related to the underlying disease process resulting in pain and anxiety. The pain is at times so severe it is likely contributing to her nausea, vomiting and inability to eat and drink. PLAN 1. Agree with hospital admission and very grateful for the excellent medical care with continued present management with cultures pending broad spectrum antibiotic coverage, IV fluid hydration, correction of fluid and electrolyte status and supportive care. 2. Urology has been consulted and cystoscopy by urology would be helpful due to the abnormal findings noted on cystoscopy with a problematic ability to distend the bladder and outpatient cystogram was recommended but now with the right hydronephrosis, attempts at cystoscopy stent placement may be considered if not right percutaneous nephrostomy may be necessary. 3. We will consult radiation oncology, evaluation and management, education and consider palliative radiation to the pelvic tumor as well as retroperitoneal adenopathy, especially the adenopathy causing compromise to the renal vessels. Thank you for the consultation. We will follow along in her care. MD CELSO Crespo/ /4:38 PM /5:08 PM
[2017-03-18] MEDS: HYDROmorphone HCL PF 1 MG/ML VIAL IV PRN ×2 (18:16→22:15)
[2017-03-18] MEDS: PIPERACIL-TAZO 3.375 GM PREMIX 50 ML IV SCH (21:33)
[2017-03-18] MEDS: SODIUM CHLORIDE 0.9% FLUSH 10 ML FLUSH IV FLUSH SCH (21:34)
[2017-03-19] VITALS (10 sets, daily range): BP systolic 100–133; BP diastolic 58–74; PULSE 88–111; RESP 16–19; TEMP 97.4–101.3; O2SAT 96–100
[2017-03-19] MEDS: HYDROmorphone HCL PF 1 MG/ML VIAL IV PRN ×8 (03:18→22:36)
[2017-03-19] MEDS: PIPERACIL-TAZO 3.375 GM PREMIX 50 ML IV SCH ×4 (03:19→20:25)
[2017-03-19 07:48] LABS: AUTOMATED NEUTROPHIL # 10.9 TH/MM3 (1.8-7.7); BASOPHIL % 0.3 % (0.0-2.0); EOSINOPHIL # 0.1 TH/MM3 (0-0.4); EOSINOPHIL % 0.5 % (0.0-4.0); HEMATOCRIT 35.3 % (35.0-46.0); HEMO FLAGS DIFF FINAL; LYMPHOCYTE # 0.5 TH/MM3 (1.0-4.8); MEAN CELL VOLUME 86.1 FL (80.0-100.0); MEAN CORPUSCULAR HEMOGLOBIN 28.8 PG (27.0-34.0); MEAN CORPUSCULAR HGB CONC 33.5 % (32.0-36.0); MONO % 3.5 % (0.0-8.0); NEUT % 91.7 % (16.0-70.0); PLATELET COUNT 212 TH/MM3 (150-450); WHITE BLOOD COUNT 11.9 TH/MM3 (4.0-11.0)
[2017-03-19] MEDS: SODIUM CHLORIDE 0.9% FLUSH 10 ML FLUSH IV FLUSH SCH ×2 (08:00→20:25)
[2017-03-19 08:14] LABS: POTASSIUM 3.6 MEQ/L (3.5-5.1)
[2017-03-19 08:43] LABS: CALCIUM-PROTEIN CORRECTED 8.1 MG/DL (8.5-10.1)
--- NOTE | 2017-03-19 11:21 | PD.CONS ---
HPI Service Urology Consult Requested By Dr. 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 Patient was recently evaluated by for extensive pelvic mass that occupied the entire pelvis from sidewall to sidewall. Also noted was significant retroperitoneal adenopathy extending from the pelvis up to the renal vessels. The mass appeared to be originating from the uterus and a biopsy was recently taken several days ago. Cystoscopic evaluation was also performed whereby they bladder itself was noted to poorly distended with irrigant fluid most likely related to extrinsic compression from the large pelvic mass. During present hospitalization, a repeat CT scan study was performed that once again demonstrated the large pelvic mass with adenopathy in addition there was moderate hydroureteronephrosis noted thus prompting a urology evaluation for consideration of right stent placement. Patient has already been seen by Dr. Clifton who has recommended palliative radiation therapy. Patient is voiding spontaneously with urinary frequency as expected. She denies gross hematuria. I reviewed the actual CT scan images and concur with the radiologist impression. Review of Systems Constitutional: DENIES: Fever, Night Sweats Gastrointestinal: COMPLAINS OF: Abdominal pain, Nausea, Vomiting Musculoskeletal: COMPLAINS OF: Back pain (right flank) Except as stated in HPI: all other systems reviewed are Neg Past Family Social History Past Medical History COPD Asthma Recent diagnosis uterine carcinosarcoma Past Surgical History Recent cystoscopy, proctoscopy and biopsy of pelvic mass Reported Medications Refer to EMR Allergies: Uncoded Allergies: ADHESIVES (Allergy, Unknown, rash, 03/14/17) Active Ordered Medications Refer to EMR Family History Reviewed and noncontributory Social History Long history tobacco usage Physical Exam Vital Signs Date Time Temp Pulse Resp B/P (MAP) Pulse Ox O2 Delivery O2 Flow Rate FiO2 03/19/17 03:15 99.6 111 19 133/73 (93) 100 03/19/17 00:00 94 03/19/17 00:00 100.4 108 19 100/58 (72) 96 03/18/17 20:20 118 03/18/17 20:00 100.7 115 19 112/70 (84) 97 03/18/17 17:49 117 03/18/17 17:30 97.5 125 18 156/89 (111) 92 03/18/17 16:37 03/18/17 16:05 94 Nasal Cannula 2.00 03/18/17 16:00 95 Nasal Cannula 2.00 03/18/17 15:12 99.2 105 18 115/74 (88) 94 Nasal Cannula 2.00 03/18/17 14:39 109 20 117/70 (86) 95 Room Air 03/18/17 13:25 99.0 114 20 141/89 (106) 93 Room Air 03/18/17 12:32 96 Room Air 03/18/17 12:32 110 16 150/91 (110) 96 Room Air 03/18/17 11:36 98.5 120 18 143/71 (95) 94 Physical Exam GENERAL: This is a well-nourished, well-developed patient, in no apparent distress. SKIN: No rashes, ecchymoses or lesions. Cool and dry. HEAD: Atraumatic. Normocephalic. No temporal or scalp tenderness. EYES: Pupils equal round and reactive. Extraocular motions intact. No scleral icterus. No injection or drainage. ENT: Nose without bleeding, purulent drainage or septal hematoma. Throat without erythema, tonsillar hypertrophy or exudate. Uvula midline. Airway patent. NECK: Trachea midline. No JVD or lymphadenopathy. Supple, nontender, no meningeal signs. GASTROINTESTINAL: Abdomen soft, with mild tenderness to lower quadrants GENITOURINARY: No CVA tenderness MUSCULOSKELETAL: Extremities without clubbing, cyanosis, or edema. No joint tenderness, effusion, or edema noted. No calf tenderness. Negative Homans sign bilaterally. NEUROLOGICAL: Awake and alert. Cranial nerves II through XII intact. Motor and sensory grossly within normal limits. Five out of 5 muscle strength in all muscle groups. Normal speech. Lab results reviewed: Yes Laboratory Tests Test 03/18/17 11:55 03/18/17 12:55 03/19/17 06:39 White Blood Count 21.5 11.9 Red Blood Count 4.94 4.10 Hemoglobin 13.9 11.8 Hematocrit 42.3 35.3 Mean Corpuscular Volume 85.8 86.1 Mean Corpuscular Hemoglobin 28.1 28.8 Mean Corpuscular Hemoglobin Concent 32.8 33.5 Red Cell Distribution Width 12.4 13.0 Platelet Count 295 212 Mean Platelet Volume 8.5 8.8 Neutrophils (%) (Auto) 94.1 91.7 Lymphocytes (%) (Auto) 2.0 4.0 Monocytes (%) (Auto) 2.8 3.5 Eosinophils (%) (Auto) 0.0 0.5 Basophils (%) (Auto) 1.1 0.3 Neutrophils # (Auto) 20.3 10.9 Lymphocytes # (Auto) 0.4 0.5 Monocytes # (Auto) 0.6 0.4 Eosinophils # (Auto) 0.0 0.1 Basophils # (Auto) 0.2 0.0 CBC Comment AUTO DIFF DIFF FINAL Differential Comment AUTO DIFF CONFIRMED Prothrombin Time 12.7 Prothromb Time International Ratio 1.1 Activated Partial Thromboplast Time 35.8 Blood Urea Nitrogen 21 14 Creatinine 0.86 0.91 Random Glucose 155 106 Total Protein 7.6 5.8 Albumin 2.8 Calcium Level 8.7 7.4 Alkaline Phosphatase 162 Aspartate Amino Transf (AST/SGOT) 28 Alanine Aminotransferase (ALT/SGPT) 25 Total Bilirubin 0.4 Sodium Level 126 131 Potassium Level 3.5 3.6 Chloride Level 93 98 Carbon Dioxide Level 20.7 24.0 Anion Gap 12 9 Estimat Glomerular Filtration Rate 69 64 Lactic Acid Level 1.3 Urine Collection Type CATH Urine Color YELLOW Urine Turbidity CLOUDY Urine pH 6.0 Urine Specific [place] 1.016 Urine Protein 100 Urine Glucose (UA) NEG Urine Ketones 15 Urine Occult Blood LARGE Urine Nitrite POS Urine Bilirubin NEG Urine Leukocyte Esterase MOD Urine RBC 0-3 Urine WBC 25-49 Urine Bacteria MANY Microscopic Urinalysis Comment CULTURE INDICATED Protein Corrected Calcium 8.1 Date/Time Source Procedure Growth Status 03/18/17 12:05 Blood Peripheral Aerobic Blood Culture - Preliminary Gram Negative Sukumar Resulted 03/18/17 12:05 Anaerobic Blood Culture - Preliminary Gram Negative Sukumar Resulted 03/18/17 12:55 Urine Catheterized Urine Urine Culture Pending Received Result Diagram: 03/19/17 0639 03/19/17 0639 Personally reviewed images: Yes Imaging Last Impressions Abdomen/Pelvis CT 03/18/17 1205 Signed Impressions: Service Date/Time: Saturday, March 18, 2017 13:02 - CONCLUSION: 1. Large heterogeneous pelvic mass is not significantly changed in size. 2. Right ureter is now obstructed distally. Mild hydronephrosis now seen and with associated swelling and delayed nephrogram of the right kidney. Retroperitoneal lymphadenopathy narrowing the 2 right renal arteries may also be contributing to the delayed nephrogram. 3. Metastatic retroperitoneal lymphadenopathy again noted, similar to before. Most of the nodes appear partly necrotic. 4. Trace free fluid now seen in the pelvic cul-de-sac. No perceptible abscess. 5. Subcentimeter hypodensity of the liver is unchanged and most likely a benign cyst. Mateo Costa MD Chest X-Ray 03/18/17 1155 Signed Impressions: Service Date/Time: Saturday, March 18, 2017 12:10 - CONCLUSION: Emphysema. No evidence of acute cardiopulmonary disease. Mateo Costa MD Assessment and Plan Assessment and Plan Urologic impression: Moderate right hydroureteronephrosis most likely secondary to extrinsic compression of the right ureter from the large pelvic mass/ retroperitoneal adenopathy Plan: #1 keep patient nothing by mouth after midnight #2 patient scheduled for cystoscopy, right retrograde pyelogram and right long term care administrator ureteral stent placement tomorrow morning #3 consider eventual stent removal if there is a favorable response to radiation therapy Dar Stephens MD Mar 19, 2017 11:21
--- NOTE | 2017-03-19 12:52 | HHI.PR ---
Subjective Remarks still having lower abdominal discomfort, still with vaginal bleeding right flank discomfort not having any dysuria right now, hungry T max 100 this am- having loose stools Objective Vitals Vital Signs Date Time Temp Pulse Resp B/P (MAP) Pulse Ox O2 Delivery O2 Flow Rate FiO2 03/19/17 03:15 99.6 111 19 133/73 (93) 100 03/19/17 00:00 94 03/19/17 00:00 100.4 108 19 100/58 (72) 96 03/18/17 20:20 118 03/18/17 20:00 100.7 115 19 112/70 (84) 97 03/18/17 17:49 117 03/18/17 17:30 97.5 125 18 156/89 (111) 92 03/18/17 16:37 03/18/17 16:05 94 Nasal Cannula 2.00 03/18/17 16:00 95 Nasal Cannula 2.00 03/18/17 15:12 99.2 105 18 115/74 (88) 94 Nasal Cannula 2.00 03/18/17 14:39 109 20 117/70 (86) 95 Room Air 03/18/17 13:25 99.0 114 20 141/89 (106) 93 Room Air I/O 03/18/17 03/18/17 03/18/17 03/19/17 03/19/17 03/19/17 07:00 15:00 23:00 07:00 15:00 23:00 Intake Total 3200 ml 1646 ml 290 ml Output Total 200 ml 700 ml Balance 3200 ml 1446 ml -410 ml Intake Oral 240 ml 240 ml IV Total 3200 ml 1406 ml 50 ml Output Urine Total 200 ml 700 ml # Voids 2 Result Diagram: 03/19/17 0639 03/19/17 0639 Imaging Last Impressions Abdomen/Pelvis CT 03/18/17 1205 Signed Impressions: Service Date/Time: Saturday, March 18, 2017 13:02 - CONCLUSION: 1. Large heterogeneous pelvic mass is not significantly changed in size. 2. Right ureter is now obstructed distally. Mild hydronephrosis now seen and with associated swelling and delayed nephrogram of the right kidney. Retroperitoneal lymphadenopathy narrowing the 2 right renal arteries may also be contributing to the delayed nephrogram. 3. Metastatic retroperitoneal lymphadenopathy again noted, similar to before. Most of the nodes appear partly necrotic. 4. Trace free fluid now seen in the pelvic cul-de-sac. No perceptible abscess. 5. Subcentimeter hypodensity of the liver is unchanged and most likely a benign cyst. Mateo Costa MD Chest X-Ray 03/18/17 1155 Signed Impressions: Service Date/Time: Monday, March 18, 2017 12:10 - CONCLUSION: Emphysema. No evidence of acute cardiopulmonary disease. Mateo Costa MD Objective Remarks awake and alert, NAD, speech clear anicteric no rales or wheezes regular rhythm tachycardic, HR 110 abdomen- enlarged, soft, + tenderness on deep palpation lower abdomen extremities no edema neuro exam- non focal A/P Problem List: (1) Post-menopausal bleeding ICD Code: N95.0 - Postmenopausal bleeding Status: Acute (2) Pelvic mass in female ICD Code: R19.00 - Pelvic mass in female Status: Acute Assessment and Plan This is a 57-year-old female who has been recently diagnosed with uterine carcinosarcoma. 4 days ago under anesthesia, she had cystoscopy, proctoscopy and endocervical/endometrial mass biopsy because of chronic vaginal bleeding. During cystoscopy, the bladder never distended and there was concern that there may be a defect in the bladder possibly communicating with the tumor or the peritoneal cavity. Proctosigmoidoscopy showed extrinsic compression which precluded evaluation beyond that point. Patient returns to the emergency department because of persistent nausea, vomiting and constant sharp severe generalized abdominal pain associated with burning upon urination, weakness, dizziness and feeling warm. Repeat CT of the abdomen and pelvis shows pelvic mass not significant change but right ureter is not obstructed with mild hydronephrosis and trace fluid in the cul-de-sac. Gram negative Sepsis secondary to UTI underlying obstructive uropathy. Possible fistula involving the bladder with the tumor or peritoneal cavity. Leukocytosis- trended down. T down DC Vancomycin. Continue on Zosyn. Follow-up blood and urine cultures. final C and S get ID consult- for recommendations. will add IV Levaquin for for double gram negative coverage. repeat blood cultures after 48 hours of IV antibiotics to ensure clearance of bacteremia Moderate right Hydronephrosis from extrinsic compression from pelvic mass Urology ff- taking her to OR tomorrow- Gyne-Oncology ff Uterine cancer- with vaginal bleeding monitor. H and H stable Dr. Clifton ff. Dilaudid prn for pain LATOYA- creatinine improved Hyponatremia secondary to vomiting - Na up to 131 continue IVF with 10 meq KCL- 75 cc/hr ff BMP start diet- patient hungry, NPO post midnight IV zofran prn Diarrhea- ff BMs. continue IVF. Ff electrolytes PPI for GI prophylaxis DVT prophylaxis with SCD. Pharmacological prophylaxis contraindicated at this time secondary to ongoing [employer] bleeding Discussed Condition With- patient and at bedside Luis Fernando Massey MD Mar 19, 2017 12:52
[2017-03-19] MEDS: PANTOPRAZOLE SODIUM 40 MG VIAL IV PUSH SCH (13:31)
[2017-03-19] MEDS: POTASSIUM CHLORIDE INJ 10 MEQ in DEXT 5%-NACL 0.9% 1000 ML INJ 1,000 ML IV SCH (14:50)
[2017-03-19] MEDS ORDERED: VANCOMYCIN INJ 750 MG in SODIUM CHLOR 0.9% 250 ML INJ 250 ML IV SCH (15:00)
[2017-03-19] MEDS: LEVOFLOXACIN 750 MG PREMIX INJ 150 ML IV SCH (17:39)
--- NOTE | 2017-03-19 21:15 | PD.ID.CON ---
History of Present Illness Service ID Consult Requested By Reason for Consult Evaluation and management of sepsis, gram-negative bacteremia, gram-negative UTI in a patient with pyelonephritis and hydronephrosis secondary to uterine cancer. Primary Care Physician Kristan Hagan MD Diagnoses: History of Present Illness Ms. Jara is a 57-year-old female who was recently diagnosed with uterine carcinosarcoma approximately 4 days back she had a cystoscopy, proctoscopy and endocervical/endometrial mass biopsy. Patient has a history of chronic vaginal bleeding, weight loss, back pain. Proctosigmoidoscopy showed extrinsic compression of the bladder. Patient returned to the emergency department because of persistent nausea vomiting and constant sharp severe generalized abdominal as well as back pain. This was associated with burning upon urination, weakness, dizziness and feeling warm. Repeat CT of the abdomen and pelvis showed pelvic mass not significant change from days prior but the right ureter showed mild hydronephrosis and trace fluid in the cul-de-sac. Patient was initially at [facility] and was transferred to the [facility]. Currently she is on hospitalist service. She underwent a sepsis workup blood cultures on admission now are positive for Escherichia coli, Verigene with no CTX-M marker. Urine cultures are positive for GNR. ID consulted for mment of complicated UTI secondary to obstruction from large uterine mass. And some of my evaluation patient is currently admitted on 7 E. floor. She is maintaining her vital signs and appears to be clinically stable. She reports to me that she is going to have a stent placement. Medical records are reviewed and appears that Dr. Clifton as well as Dr. Stephens have seen the patient and there is a plan for stent placement tomorrow. Also it appears that patient has been offered palliative radiation therapy. Review of Systems Constitutional: COMPLAINS OF: Diaphoretic episodes, Fatigue, Fever, Weight loss , Chills, Change in appetite, Night Sweats, DENIES: Weight gain, Dizziness Endocrine: COMPLAINS OF: Abnorml menstrual pattern, DENIES: Heat/cold intolerance, Polydipsia, Polyuria, Polyphagia Eyes: DENIES: Blurred vision, Diplopia, Eye inflammation, Eye pain, Vision loss , Photosensitivity, Double Vision Ears, nose, mouth, throat: DENIES: Tinnitus, Hearing loss, Vertigo, Nasal discharge, Oral lesions, Throat pain, Hoarseness, Ear Pain, Running Nose, Epistaxis, Sinus Pain, Toothache, Odynophagia Respiratory: DENIES: Apneas, Cough, Snoring, Wheezing, Hemoptysis, Sputum production, Shortness of breath Cardiovascular: DENIES: Chest pain, Palpitations, Syncope, Dyspnea on Exertion , PND, Lower Extremity Edema, Orthopnea, Claudication Gastrointestinal: COMPLAINS OF: Abdominal pain, Diarrhea, Anorexia, DENIES: Black stools, Bloody stools, Constipation, Nausea, Vomiting, Difficulty Swallowing Genitourinary: COMPLAINS OF: Abnormal vaginal bleeding, Urinary frequency, Urinary incontinence, Urgency, Dysuria, Vaginal discharge, DENIES: Dysmenorrhea , Dyspareunia, Sexual dysfunction, Hematuria, Nocturia Musculoskeletal: DENIES: Joint pain, Muscle aches, Stiffness, Joint Swelling, Back pain, Neck pain Integumentary: DENIES: Abnormal pigmentation, Pruritus, Rash, Nail changes, Breast masses, Breast skin changes, Nipple discharge Hematologic/lymphatic: DENIES: Bruising, Lymphadenopathy Immunologic/allergic: DENIES: Eczema, Urticaria Neurologic: DENIES: Abnormal gait, Headache, Localized weakness, Paresthesias, Seizures, Speech Problems, Tremor, Poor Balance Psychiatric: DENIES: Anxiety, Confusion, Mood changes, Depression, Hallucinations, Agitation, Suicidal Ideation, Homicidal Ideation, Delusions Past Family Social History Allergies: Uncoded Allergies: ADHESIVES (Allergy, Unknown, rash, 03/14/17) Past Medical History per HPI Past Surgical History Tonsillectomy Reported Medications Reported Meds & Active Scripts Active Lortab (Hydrocodone-Acetaminophen) 5-325 Mg Tab 1-2 Tab PO HS PRN Active Ordered Medications Current Medications Medications (Trade) Dose Ordered Sig/Mata Route Start Time Stop Time Status Last Admin Piperacillin Sod/ Tazobactam Sod 50 ml @ 100 mls/hr Q6H IV 03/18/17 20:00 03/19/17 20:25 (Protonix Inj) 40 mg Q24H IV PUSH 03/18/17 15:00 03/19/17 13:31 (NS Flush) 2 ml UNSCH PRN IV FLUSH 03/18/17 14:15 (NS Flush) 2 ml BID IV FLUSH 03/18/17 21:00 03/19/17 08:00 (Zofran Inj) 4 mg Q6H PRN IVP 03/18/17 14:15 (Dilaudid Pf Inj) 0.3 mg Q3H PRN IV 03/18/17 14:15 (Dilaudid Pf Inj) 0.5 mg Q3H PRN IV 03/18/17 14:15 03/19/17 20:25 (Dilaudid Pf Inj) 0.5 mg Q3H PRN IV 03/18/17 14:15 03/19/17 13:30 (Narcan Inj) 0.4 mg UNSCH PRN IV 03/18/17 14:15 (Albuterol Neb) 0.63 mg Q4HR NEB PRN NEB 03/18/17 16:15 Potassium Chloride 10 meq/ Dextrose/Sodium Chloride 1,005 ml @ 75 mls/hr [id number] IV 03/19/17 13:30 03/19/17 14:50 (Tylenol) 650 mg Q4H PRN PO 03/19/17 16:45 Levofloxacin/ Dextrose 150 ml @ 100 mls/hr Q24H IV 03/19/17 17:00 03/19/17 17:39 Family History reviewed, NO cancers Social History smoke a pack per day. Does not drink. Worked at [employer] in . Prior to that in a SNF/[employer]. She is from [place] and is here on a Green Card and is legal resident. She has lived in [place] for many yrs. Physical Exam Vital Signs Vital Signs Date Time Temp Pulse Resp B/P (MAP) Pulse Ox O2 Delivery O2 Flow Rate FiO2 03/19/17 18:14 17 03/19/17 17:34 98 Nasal Cannula 2.00 03/19/17 16:13 107 03/19/17 16:00 101.3 107 16 119/70 (86) 99 03/19/17 14:10 16 03/19/17 12:17 92 03/19/17 12:00 97.4 94 18 107/74 (85) 97 03/19/17 08:12 101 03/19/17 08:00 97.8 88 18 110/74 (86) 97 03/19/17 03:15 99.6 111 19 133/73 (93) 100 03/19/17 00:00 94 03/19/17 00:00 100.4 108 19 100/58 (72) 96 Physical Exam GENERAL:Thin built patient, in no apparent distress. SKIN: No rashes, ecchymoses or lesions. Cool and dry. HEAD: Atraumatic. Normocephalic. No temporal or scalp tenderness. EYES: Pupils equal round and reactive. Extraocular motions intact. No scleral icterus. No injection or drainage. ENT: Nose without bleeding, purulent drainage or septal hematoma. Throat without erythema, tonsillar hypertrophy or exudate. Uvula midline. Airway patent. NECK: Trachea midline. No JVD or lymphadenopathy. Supple, nontender, no meningeal signs. CARDIOVASCULAR: Regular rate and rhythm without murmurs, gallops, or rubs. RESPIRATORY: Clear to auscultation. Breath sounds equal bilaterally. No wheezes , rales, or rhonchi. GASTROINTESTINAL: Abdomen soft, nondistended. Right CVA tenderness. Lower abd tenderness. MUSCULOSKELETAL: Extremities without clubbing, cyanosis, or edema. No joint tenderness, effusion, or edema noted. No calf tenderness. Negative Homans sign bilaterally. NEUROLOGICAL: Awake and alert. Grossly non focal Psych: cooperative IV line sites with no e.o infection. Laboratory Laboratory Tests Test 03/19/17 06:39 White Blood Count 11.9 Red Blood Count 4.10 Hemoglobin 11.8 Hematocrit 35.3 Mean Corpuscular Volume 86.1 Mean Corpuscular Hemoglobin 28.8 Mean Corpuscular Hemoglobin Concent 33.5 Red Cell Distribution Width 13.0 Platelet Count 212 Mean Platelet Volume 8.8 Neutrophils (%) (Auto) 91.7 Lymphocytes (%) (Auto) 4.0 Monocytes (%) (Auto) 3.5 Eosinophils (%) (Auto) 0.5 Basophils (%) (Auto) 0.3 Neutrophils # (Auto) 10.9 Lymphocytes # (Auto) 0.5 Monocytes # (Auto) 0.4 Eosinophils # (Auto) 0.1 Basophils # (Auto) 0.0 CBC Comment DIFF FINAL Differential Comment Blood Urea Nitrogen 14 Creatinine 0.91 Random Glucose 106 Total Protein 5.8 Calcium Level 7.4 Sodium Level 131 Potassium Level 3.6 Chloride Level 98 Carbon Dioxide Level 24.0 Anion Gap 9 Estimat Glomerular Filtration Rate 64 Protein Corrected Calcium 8.1 Date/Time Source Procedure Growth Status 03/18/17 12:05 Blood Peripheral Aerobic Blood Culture - Preliminary Gram Negative Sukumar Resulted 03/18/17 12:05 Anaerobic Blood Culture - Preliminary Gram Negative Sukumar Resulted 03/18/17 12:55 Urine Catheterized Urine Urine Culture - Preliminary Gram Negative Sukumar Resulted Result Diagram: 03/19/17 0639 03/19/17 0639 Imaging Last Impressions Abdomen/Pelvis CT 03/18/17 1205 Signed Impressions: Service Date/Time: Saturday, March 18, 2017 13:02 - CONCLUSION: 1. Large heterogeneous pelvic mass is not significantly changed in size. 2. Right ureter is now obstructed distally. Mild hydronephrosis now seen and with associated swelling and delayed nephrogram of the right kidney. Retroperitoneal lymphadenopathy narrowing the 2 right renal arteries may also be contributing to the delayed nephrogram. 3. Metastatic retroperitoneal lymphadenopathy again noted, similar to before. Most of the nodes appear partly necrotic. 4. Trace free fluid now seen in the pelvic cul-de-sac. No perceptible abscess. 5. Subcentimeter hypodensity of the liver is unchanged and most likely a benign cyst. Mateo Costa MD Chest X-Ray 03/18/17 1155 Signed Impressions: Service Date/Time: Saturday, March 18, 2017 12:10 - CONCLUSION: Emphysema. No evidence of acute cardiopulmonary disease. Mateo Costa MD Assessment and Plan Assessment and Plan Sepsis present on admission. Escherichia coli gram-negative sukumar bacteremia likely secondary to UTI Complicated UTI with obstruction secondary to large uterine mass. Uterine cancer with retroperitoneal adenopathy likely advanced stage. Has been offered palliative radiation therapy. Persistent fevers: ? source control not achieved yet. Hopefully stent placement will help relieve the infected urine in hydronephrotic kidney. Recs Continue Zosyn IV Continue Levaquin IV for now. Repeat blood cultures x 2. Follow cultures Follow clinically. Stent placement will hopefully achieve source control and help defervesce fevers. If fevers persist after stent placement and depending on cultures and clinical condition will consider escalation of therapy. Faisalw pt and RN Jenny Jackson MD Mar 19, 2017 21:15
[2017-03-20] VITALS (10 sets, daily range): BP systolic 94–128; BP diastolic 53–83; PULSE 84–108; RESP 16–18; TEMP 97.9–100.3; O2SAT 94–98
[2017-03-20] MEDS: HYDROmorphone HCL PF 1 MG/ML VIAL IV PRN ×10 (00:21→20:14)
[2017-03-20] MEDS: PIPERACIL-TAZO 3.375 GM PREMIX 50 ML IV SCH ×2 (02:29→08:24)
[2017-03-20] MEDS: SODIUM CHLORIDE 0.9% FLUSH 10 ML FLUSH IV FLUSH SCH ×2 (08:24→21:00)
--- NOTE | 2017-03-20 08:40 | PD.ONC.PN ---
Subjective Subjective Remarks faculty i on call medical assistant/onc progress note pt resting in bed pain controlled with meds awaiting stent placement this morning for hydronephrosis from tumor compression UTI on IV abx and ID following Dr. Clifton placed consult for Rad Onc to start radiation in hopes of shrinking tumor burden and stopping vaginal bleeding. then the consideration of palliative chemo...pt would like to have chemo at [place] since she lives close and transportation can be an issue. Objective Data Date Time Temp Pulse Resp B/P (MAP) Pulse Ox O2 Delivery O2 Flow Rate FiO2 03/20/17 04:22 88 03/20/17 04:00 97.9 84 18 94/53 (67) 96 03/20/17 00:00 96 03/20/17 00:00 99.3 100 18 108/67 (81) 97 03/19/17 20:00 97.4 104 18 125/74 (91) 98 03/19/17 20:00 107 03/19/17 18:14 17 03/19/17 17:34 98 Nasal Cannula 2.00 03/19/17 16:13 107 03/19/17 16:00 101.3 107 16 119/70 (86) 99 03/19/17 14:10 16 03/19/17 12:17 92 03/19/17 12:00 97.4 94 18 107/74 (85) 97 03/20/17 03/20/17 03/20/17 06:59 14:59 22:59 Intake Total 498 ml Output Total 200 ml Balance 298 ml Result Diagram: 03/19/17 0639 03/19/17 0639 Culture Results Microbiology Date/Time Source Procedure Growth Status 03/20/17 05:40 Blood Peripheral Aerobic Blood Culture Pending Received 03/20/17 05:40 Blood Peripheral Anaerobic Blood Culture Pending Received 03/20/17 05:33 Blood Peripheral Aerobic Blood Culture Pending Received 03/20/17 05:33 Blood Peripheral Anaerobic Blood Culture Pending Received 03/18/17 12:05 Blood Peripheral Aerobic Blood Culture - Preliminary Gram Negative Sukumar Resulted 03/18/17 12:05 Anaerobic Blood Culture - Preliminary Gram Negative Sukumar Resulted 03/18/17 11:55 Blood Peripheral Aerobic Blood Culture - Preliminary Escherichia Coli Resulted 03/18/17 11:55 Anaerobic Blood Culture - Preliminary Gram Negative Sukumar Resulted 03/18/17 12:55 Urine Catheterized Urine Urine Culture - Preliminary Gram Negative Sukumar Resulted Administered Medications Medications (Trade) Dose Ordered Sig/Mata Route PRN Reason Start Time Stop Time Status Last Admin Dose Admin Piperacillin Sod/ Tazobactam Sod 50 ml @ 100 mls/hr Q6H IV 03/18/17 20:00 03/20/17 02:29 Pantoprazole Sodium (Protonix Inj) 40 mg Q24H IV PUSH 03/18/17 15:00 03/19/17 13:31 Sodium Chloride (NS Flush) 2 ml BID IV FLUSH 03/18/17 21:00 03/19/17 08:00 Hydromorphone HCl (Dilaudid Pf Inj) 0.5 mg Q3H PRN IV Pain 6-10;if unable to take PO 03/18/17 14:15 03/20/17 04:48 Hydromorphone HCl (Dilaudid Pf Inj) 0.5 mg Q3H PRN IV BREAKTHROUGH PAIN 03/18/17 14:15 03/20/17 05:44 Potassium Chloride 10 meq/ Dextrose/Sodium Chloride 1,005 ml @ 75 mls/hr [id number] IV 03/19/17 13:30 03/19/17 14:50 Levofloxacin/ Dextrose 150 ml @ 100 mls/hr Q24H IV 03/19/17 17:00 03/19/17 17:39 Objective Remarks GENERAL: Thin and frail SKIN: Warm and dry. HEAD: Normocephalic. EYES: No scleral icterus. No injection or drainage. CARDIOVASCULAR: Regular rate and rhythm without murmurs. RESPIRATORY: Breath sounds equal bilaterally. No accessory muscle use. GASTROINTESTINAL: Abdomen firm, generalized pain, + BS x4 EXTREMITIES: No cyanosis, or edema. MUSCULOSKELETAL: Adequate muscle tone. NEUROLOGICAL: No obvious focal deficit. Awake, alert, and oriented x3. PSYCHIATRIC: Appropriate mood and affect; insight and judgment normal. 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 (2) Pelvic mass in female ICD Codes: R19.00 - Pelvic mass in female Status: Acute (3) Post-menopausal bleeding ICD Codes: N95.0 - Postmenopausal bleeding Status: Acute (4) UTI (urinary tract infection) ICD Codes: N39.0 - Urinary tract infection, site not specified Status: Acute Plan: on IV abx urology consulted and stent placement today ID following ivf and supportive care Problem Qualifiers (1) UTI (urinary tract infection): Sharif Randle Mar 20, 2017 08:40
--- NOTE | 2017-03-20 11:28 | HHI.PR ---
Subjective Remarks Complaints of lower abdominal pain today. Plan for urinary stent today. No complaints of fever or chills. Objective Vital Signs Date Time Temp Pulse Resp B/P (MAP) Pulse Ox O2 Delivery O2 Flow Rate FiO2 03/20/17 08:00 98.9 96 18 103/69 (80) 95 03/20/17 04:22 88 03/20/17 04:00 97.9 84 18 94/53 (67) 96 03/20/17 00:00 96 03/20/17 00:00 99.3 100 18 108/67 (81) 97 03/19/17 20:00 97.4 104 18 125/74 (91) 98 03/19/17 20:00 107 03/19/17 18:14 17 03/19/17 17:34 98 Nasal Cannula 2.00 03/19/17 16:13 107 03/19/17 16:00 101.3 107 16 119/70 (86) 99 03/19/17 14:10 16 03/19/17 12:17 92 03/19/17 12:00 97.4 94 18 107/74 (85) 97 I/O 03/19/17 03/19/17 03/19/17 03/20/17 03/20/17 03/20/17 07:00 15:00 23:00 07:00 15:00 23:00 Intake Total 290 ml 1130 ml 498 ml Output Total 700 ml 200 ml Balance -410 ml 1130 ml 298 ml Intake Oral 240 ml 1080 ml IV Total 50 ml 50 ml 498 ml Output Urine Total 700 ml 200 ml # Voids 5 Result Diagram: 03/19/17 0639 03/19/17 0639 Objective Remarks GENERAL: NAD, A&Ox3 HEAD: Normocephalic. NECK: Supple, trachea midline. No lymphadenopathy. EYES: No scleral icterus. No injection or drainage. CARDIOVASCULAR: Regular rate and rhythm without murmurs, gallops, or rubs. RESPIRATORY: Breath sounds equal bilaterally. No accessory muscle use. GASTROINTESTINAL: Abdomen soft, non-tender, nondistended. MUSCULOSKELETAL: No cyanosis, or edema. SKIN: Warm and dry. NEURO: No focal neurological deficitis. A/P Problem List: (1) UTI (urinary tract infection) ICD Code: N39.0 - Urinary tract infection, site not specified Status: Acute (2) Carcinosarcoma of uterus ICD Code: C55 - Malignant neoplasm of uterus, part unspecified Status: Acute (3) Pelvic mass in female ICD Code: R19.00 - Pelvic mass in female Status: Acute (4) Post-menopausal bleeding ICD Code: N95.0 - Postmenopausal bleeding Status: Acute Assessment and Plan Assessment and Plan 57-year-old female admitted secondary to UTI and sepsis. Obstructive uropathy present. Plan for stenting today. Escherichia coli UTI Escherichia coli bacteremia Continue Zosyn Continue to follow blood cultures Infectious disease following Sepsis Resolved Urinary obstruction Moderate right Hydronephrosis Uterine carcinosarcoma Vaginal bleeding Urinary compression for mass effect Plan for stenting today Urology following Gynecology/oncology following Holding pharmacologic blood thinners secondary to bleeding Follow H&H LATOYA Resolved Follow renal function Hyponatremia May have been secondary to nausea and vomiting Follow renal function As needed IV Zofran Diarrhea Continue IV hydration Follow clinically Monitor electrolytes DVT prophylaxis SCDs Avoiding blood thinners secondary to bleeding Problem Qualifiers (1) UTI (urinary tract infection): Pablo Luong MD Mar 20, 2017 11:28
[2017-03-20] MEDS: POTASSIUM CHLORIDE INJ 10 MEQ in DEXT 5%-NACL 0.9% 1000 ML INJ 1,000 ML IV SCH (12:19)
[2017-03-20] MEDS ORDERED: HYDROmorphone HCL PF 1 MG/ML VIAL IV PRN (14:15)
[2017-03-20] MEDS: PANTOPRAZOLE SODIUM 40 MG VIAL IV PUSH SCH (14:17)
[2017-03-20] MEDS: LEVOFLOXACIN 750 MG PREMIX INJ 150 ML IV SCH (17:12)
[2017-03-21] VITALS (7 sets, daily range): BP systolic 97–143; BP diastolic 52–78; PULSE 79–116; RESP 16–18; TEMP 96.9–100.1; O2SAT 94–99
[2017-03-21] MEDS: HYDROmorphone HCL PF 1 MG/ML VIAL IV PRN ×7 (00:14→20:37)
[2017-03-21] MEDS: POTASSIUM CHLORIDE INJ 10 MEQ in DEXT 5%-NACL 0.9% 1000 ML INJ 1,000 ML IV SCH ×2 (05:42→19:06)
[2017-03-21] MEDS ORDERED: CALCIUM CARBONATE 1.25 GM (CA 500 MG) TAB PO ONE (08:15)
[2017-03-21] MEDS ORDERED: IOHEXOL 350 MG/ML 50 ML BTL (for RAD DIAG) ONE (08:51)
--- NOTE | 2017-03-21 09:04 | PD.OP ---
Operative Report Date of Surgery: Mar 21, 2017 Preoperative Diagnosis: (1) Hydronephrosis, right (2) Pelvic mass in female Postoperative Diagnosis: (1) Hydronephrosis, right (2) Pelvic mass in female Procedure: Cystoscopy, right retrograde pyelogram and skilled nursing right ureteral stent insertion Anesthesia: General Surgeon: Dar Stephens Executive Services Administrator(s): None Operation and Findings: Indication for procedure: The case of a pleasant 57-year-old female who was recently discovered to have a large pelvic mass biopsy proven to be malignant with probable extrinsic compression on the right ureter causing right hydronephrosis. Patient presents now for cystoscopy, right retrograde pyelogram and right ureteral stent placement. Operative procedure in detail: Patient was brought to the operating suite and placed supine on the OR table. She was then placed under general anesthesia. She was then repositioned in dorsolithotomy position and prepped and draped in normal sterile fashion. After appropriate timeout was undertaken I proceeded with cystoscopic evaluation utilizing the rigid cystoscope with the 30 lens and 20 [place]an sheath. Both right and left ureteral orifice these were in correct anatomic position. There was clear reflux noted on the left and no reflux noted on the right side. Also noted was obvious protrusion of the large pelvic mass to the posterior bladder wall. There were no areas suspicious for fistula formation or urothelial cancer. Using a 6 [place] open-ended catheter I performed a right retrograde pyelogram study that demonstrated no significant drainage. The distal ureter appeared to be obstructed from extrinsic compression of the large pelvic mass. I then inserted a sensor 0.035 wire through the open-ended ureteral catheter and the catheter was exchanged for a skilled nursing 6 [place] 22 cm [place] stent. The stent was passed under both cystoscopic and fluoroscopic guidance without difficulty. Once the stent was in proper position, the trailing string was removed. A 16 [place] catheter was next placed and connected to gravity drainage. The patient tolerated the procedures without complications and was transferred to the PACU in satisfactory condition. Dar Stephens MD Mar 21, 2017 09:04
[2017-03-21] MEDS ORDERED: DO NOT ADM ANY ANTICOAGULANT DRUGS PRN (09:05)
[2017-03-21] MEDS ORDERED: *morphine SULFATE 8 MG/ML PERIprocedure ONLY ONE (09:18)
[2017-03-21] MEDS: SODIUM CHLORIDE 0.9% FLUSH 10 ML FLUSH IV FLUSH SCH ×2 (09:25→19:44)
[2017-03-21] MEDS ORDERED: PHENYLEPH/NS 1000 MCG/10 ML SYR IV ONE (12:00)
[2017-03-21] MEDS ORDERED: ONDANSETRON HCL 4 MG/2 ML VIAL IV PUSH ONE (12:00)
[2017-03-21] MEDS ORDERED: PROPOFOL 200 MG/20 ML AMP IV ONE (12:00)
--- NOTE | 2017-03-21 12:54 | HHI.IDPN ---
Subjective Subjective Remarks Ms. Jara is a 57-year-old female who was recently diagnosed with uterine carcinosarcoma approximately 4 days back she had a cystoscopy, proctoscopy and endocervical/endometrial mass biopsy. Patient has a history of chronic vaginal bleeding, weight loss, back pain. Proctosigmoidoscopy showed extrinsic compression of the bladder. Patient returned to the emergency department because of persistent nausea vomiting and constant sharp severe generalized abdominal as well as back pain. This was associated with burning upon urination, weakness, dizziness and feeling warm. Repeat CT of the abdomen and pelvis showed pelvic mass not significant change from days prior but the right ureter showed mild hydronephrosis and trace fluid in the cul-de-sac. Patient was initially at [facility] and was transferred to the main hospital. Currently she is on hospitalist service. She underwent a sepsis workup blood cultures on admission now are positive for Escherichia coli, Verigene with no CTX-M marker. Urine cultures are positive for GNR. ID consulted for mment of complicated UTI secondary to obstruction from large uterine mass. And some of my evaluation patient is currently admitted on 7 E. floor. She is maintaining her vital signs and appears to be clinically stable. She reports to me that she is going to have a stent placement. Medical records are reviewed and appears that Dr. Clifton as well as Dr. Stephens have seen the patient and there is a plan for stent placement tomorrow. Also it appears that patient has been offered palliative radiation therapy. Overnight events reviewed. No fever No rash No diarrhea Antibiotics Levaquin IV Lines Line sites with no e.o infection. Past Medical History reviewed Allergies: Uncoded Allergies: ADHESIVES (Allergy, Unknown, rash, 03/14/17) Objective . Vital Signs Date Time Temp Pulse Resp B/P (MAP) Pulse Ox O2 Delivery O2 Flow Rate FiO2 03/21/17 09:40 97.7 90 15 124/75 (91) 100 Nasal Cannula 2 03/21/17 09:30 92 16 126/71 (89) 100 Nasal Cannula 2 03/21/17 09:15 93 19 114/73 (87) 100 Nasal Cannula 2 03/21/17 09:06 98.1 100 22 110/67 (81) 99 Nasal Cannula 2 03/21/17 04:00 98.3 116 18 143/78 (99) 97 03/21/17 03:47 16 03/21/17 00:38 103 03/21/17 00:00 99.4 100 18 113/67 (82) 99 03/20/17 23:12 97 03/20/17 23:08 16 03/20/17 20:00 99.6 107 18 128/83 (98) 94 03/20/17 16:00 99 03/20/17 15:40 100.3 108 18 111/76 (88) 94 03/21/17 03/21/17 03/22/17 14:59 22:59 06:59 Intake Total 610 ml Output Total 375 ml Balance 235 ml Intake Oral 10 ml IV Total 600 ml Output Urine Total 375 ml Estimated Blood Loss 0 ml . Microbiology Date/Time Source Procedure Growth Status 03/20/17 05:40 Blood Peripheral Aerobic Blood Culture - Preliminary NO GROWTH IN 1 DAY Resulted 03/20/17 05:40 Blood Peripheral Anaerobic Blood Culture - Preliminary NO GROWTH IN 1 DAY Resulted 03/20/17 05:33 Blood Peripheral Aerobic Blood Culture - Preliminary NO GROWTH IN 1 DAY Resulted 03/20/17 05:33 Blood Peripheral Anaerobic Blood Culture - Preliminary NO GROWTH IN 1 DAY Resulted 03/18/17 12:55 Urine Catheterized Urine Urine Culture - Final Escherichia Coli Complete Imaging Last Impressions Abdomen/Pelvis CT 03/18/17 1205 Signed Impressions: Service Date/Time: Saturday, March 18, 2017 13:02 - CONCLUSION: 1. Large heterogeneous pelvic mass is not significantly changed in size. 2. Right ureter is now obstructed distally. Mild hydronephrosis now seen and with associated swelling and delayed nephrogram of the right kidney. Retroperitoneal lymphadenopathy narrowing the 2 right renal arteries may also be contributing to the delayed nephrogram. 3. Metastatic retroperitoneal lymphadenopathy again noted, similar to before. Most of the nodes appear partly necrotic. 4. Trace free fluid now seen in the pelvic cul-de-sac. No perceptible abscess. 5. Subcentimeter hypodensity of the liver is unchanged and most likely a benign cyst. Mateo Costa MD Chest X-Ray 03/18/17 1155 Signed Impressions: Service Date/Time: Saturday, March 18, 2017 12:10 - CONCLUSION: Emphysema. No evidence of acute cardiopulmonary disease. Mateo Costa MD Physical Exam GENERAL:Thin built patient, in no apparent distress. SKIN: No rashes, ecchymoses or lesions. Cool and dry. HEAD: Atraumatic. Normocephalic. No temporal or scalp tenderness. EYES: Pupils equal round and reactive. Extraocular motions intact. No scleral icterus. No injection or drainage. ENT: Nose without bleeding, purulent drainage or septal hematoma. Throat without erythema, tonsillar hypertrophy or exudate. Uvula midline. Airway patent. NECK: Trachea midline. No JVD or lymphadenopathy. Supple, nontender, no meningeal signs. CARDIOVASCULAR: Regular rate and rhythm without murmurs, gallops, or rubs. RESPIRATORY: Clear to auscultation. Breath sounds equal bilaterally. No wheezes , rales, or rhonchi. GASTROINTESTINAL: Abdomen soft, nondistended. Right CVA tenderness. Lower abd tenderness. MUSCULOSKELETAL: Extremities without clubbing, cyanosis, or edema. No joint tenderness, effusion, or edema noted. No calf tenderness. Negative Homans sign bilaterally. NEUROLOGICAL: Awake and alert. Grossly non focal Psych: cooperative IV line sites with no e.o infection. Assessment & Plan Remarks Sepsis present on admission. Escherichia coli gram-negative nino bacteremia likely secondary to UTI Complicated UTI with obstruction secondary to large uterine mass. Uterine cancer with retroperitoneal adenopathy likely advanced stage. Has been offered palliative radiation therapy. Persistent fevers: ? source control not achieved yet. Hopefully stent placement will help relieve the infected urine in hydronephrotic kidney. Recs Continue Levaquin IV for now. Follow Repeat blood cultures x 2. Follow cultures Follow clinically. 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 Jenny Jackson MD Mar 21, 2017 12:54
[2017-03-21] MEDS: PANTOPRAZOLE SODIUM 40 MG VIAL IV PUSH SCH (14:14)
[2017-03-21] MEDS ORDERED: oxyCODONE/ACETAMINOPHEN 5 MG/325 MG TAB PO PRN (14:45)
[2017-03-21] MEDS ORDERED: PHARMACY ORDERED LAB ONE (14:45)
--- NOTE | 2017-03-21 14:46 | HHI.PR ---
Subjective Remarks Lower abdominal pain persists. Calcium level of this morning. She had urinary stent placed this morning. Objective Vital Signs Date Time Temp Pulse Resp B/P (MAP) Pulse Ox O2 Delivery O2 Flow Rate FiO2 03/21/17 12:00 99.1 98 16 105/69 (81) 94 03/21/17 09:40 97.7 90 15 124/75 (91) 100 Nasal Cannula 2 03/21/17 09:30 92 16 126/71 (89) 100 Nasal Cannula 2 03/21/17 09:15 93 19 114/73 (87) 100 Nasal Cannula 2 03/21/17 09:06 98.1 100 22 110/67 (81) 99 Nasal Cannula 2 03/21/17 04:00 98.3 116 18 143/78 (99) 97 03/21/17 03:47 16 03/21/17 00:38 103 03/21/17 00:00 99.4 100 18 113/67 (82) 99 03/20/17 23:12 97 03/20/17 23:08 16 03/20/17 20:00 99.6 107 18 128/83 (98) 94 03/20/17 16:00 99 03/20/17 15:40 100.3 108 18 111/76 (88) 94 I/O 03/20/17 03/20/17 03/20/17 03/21/17 03/21/17 03/21/17 07:00 15:00 23:00 07:00 15:00 23:00 Intake Total 498 ml 50 ml 610 ml Output Total 200 ml 375 ml Balance 298 ml 50 ml 235 ml Intake Oral 10 ml IV Total 498 ml 50 ml 600 ml Output Urine Total 200 ml 375 ml Estimated Blood Loss 0 ml # Voids 10 1 # Bowel Movements 0 Result Diagram: 03/19/1739 03/19/17 0639 Objective Remarks GENERAL: NAD, A&Ox3 HEAD: Normocephalic. NECK: Supple, trachea midline. No lymphadenopathy. EYES: No scleral icterus. No injection or drainage. CARDIOVASCULAR: Regular rate and rhythm without murmurs, gallops, or rubs. RESPIRATORY: Breath sounds equal bilaterally. No accessory muscle use. GASTROINTESTINAL: Abdomen soft, non-tender, nondistended. MUSCULOSKELETAL: No cyanosis, or edema. SKIN: Warm and dry. NEURO: No focal neurological deficitis. A/P Problem List: (1) UTI (urinary tract infection) ICD Code: N39.0 - Urinary tract infection, site not specified Status: Acute (2) Carcinosarcoma of uterus ICD Code: C55 - Malignant neoplasm of uterus, part unspecified Status: Acute (3) Pelvic mass in female ICD Code: R19.00 - Pelvic mass in female Status: Acute (4) Post-menopausal bleeding ICD Code: N95.0 - Postmenopausal bleeding Status: Acute Assessment and Plan Assessment and Plan 57-year-old female admitted secondary to UTI and sepsis. Stent places morning for obstructive uropathy. Trial transitioned to Percocet as baseline pain treatment rather than IV Dilaudid. Monitor for any signs of nausea. Monitor for pain control. CBC and BMP in the morning. Labs ordered. Escherichia coli UTI Escherichia coli bacteremia Continue Zosyn Continue to follow blood cultures Infectious disease following Sepsis Resolved Urinary obstruction Moderate right Hydronephrosis Uterine carcinosarcoma Vaginal bleeding Urinary compression for mass effect Plan for stenting today Urology following Gynecology/oncology following Holding pharmacologic blood thinners secondary to bleeding Follow H&H LATOYA Resolved Follow renal function Hyponatremia May have been secondary to nausea and vomiting Follow renal function As needed IV Zofran Diarrhea Continue IV hydration Follow clinically Monitor electrolytes DVT prophylaxis SCDs Avoiding blood thinners secondary to bleeding Problem Qualifiers (1) UTI (urinary tract infection): Pablo Luong MD Mar 21, 2017 14:46
[2017-03-21 17:17] LABS: BASOPHIL % 0.2 % (0.0-2.0); EOSINOPHIL # 0.1 TH/MM3 (0-0.4); EOSINOPHIL % 0.8 % (0.0-4.0); HEMATOCRIT 33.8 % (35.0-46.0); HEMO FLAGS DIFF FINAL; LYMPH % 4.7 % (9.0-44.0); LYMPHOCYTE # 0.8 TH/MM3 (1.0-4.8); MEAN CELL VOLUME 85.1 FL (80.0-100.0); MEAN CORPUSCULAR HEMOGLOBIN 28.5 PG (27.0-34.0); MEAN CORPUSCULAR HGB CONC 33.5 % (32.0-36.0); MONO % 7.1 % (0.0-8.0); NEUT % 87.2 % (16.0-70.0); PLATELET COUNT 211 TH/MM3 (150-450); RED BLOOD COUNT 3.98 MIL/MM3 (4.00-5.30); RED CELL DISTRIBUTION WIDTH 13.4 % (11.6-17.2); WHITE BLOOD COUNT 16.1 TH/MM3 (4.0-11.0)
[2017-03-21] MEDS: oxyCODONE/ACETAMINOPHEN 7.5 MG/325 MG TAB PO PRN ×2 (17:29→23:17)
[2017-03-21] MEDS: LEVOFLOXACIN 750 MG PREMIX INJ 150 ML IV SCH (17:30)
[2017-03-21] MEDS: ACETAMINOPHEN 325 MG TAB PO PRN (17:30)
[2017-03-21 17:49] LABS: BICARBONATE 27.7 MEQ/L (21.0-32.0)
[2017-03-21 17:52] LABS: CALCIUM-PROTEIN CORRECTED 8.2 MG/DL (8.5-10.1); TOTAL BILIRUBIN ADULT 0.4 MG/DL (0.2-1.0)
[2017-03-21 17:59] LABS: POTASSIUM 2.7 MEQ/L (3.5-5.1)
[2017-03-21] MEDS ORDERED: POTASSIUM CHLORIDE 20 MEQ PWD PACKET PO ONE (19:00)
[2017-03-22] VITALS (11 sets, daily range): BP systolic 109–149; BP diastolic 53–77; PULSE 87–106; RESP 17–20; TEMP 96–98.8; O2SAT 92–96
[2017-03-22] MEDS: POTASSIUM CHLORIDE INJ 10 MEQ in DEXT 5%-NACL 0.9% 1000 ML INJ 1,000 ML IV SCH ×2 (02:55→22:26)
[2017-03-22] MEDS: oxyCODONE/ACETAMINOPHEN 7.5 MG/325 MG TAB PO PRN ×5 (03:20→21:49)
--- NOTE | 2017-03-22 07:12 | RC ---
cc: YAJAIRA CADENA MD, BENNETT P. MD FACTOR,LORENA Hankins MD DATE OF SERVICE 03/20/2017 REASON FOR CONSULTATION Ms. Jara is a 57-year-old female I am asked see by Dr. Cadena. A copy of this evaluation will be forwarded to Dr. Cadena to aid in the decision-making process. Discussed her case with him as well. A recent biopsy of a pelvic mass demonstrates poorly differentiated neoplasm necrotic tissue potentially carcinosarcoma or endometrial adenocarcinoma. Ms. Jara seen as an inpatient. She had uterine bleeding, postmenopausal for a year and a half. She had significant discomfort in the pelvic area as well. She underwent evaluation including biopsying and imaging. Imaging demonstrates significant adenopathy in the retroperitoneal area. CT 02/13/2017 demonstrates a large pelvic mass 12 cm with retroperitoneal and left iliac lymphadenopathy noted. Additionally, more recent imaging done including on 03/18/2017, CT of the abdomen and pelvis demonstrating right ureter obstructed distally, significant retroperitoneal lymphadenopathy and retroperitoneal adenopathy narrowing right renal artery. She has significant low pelvic pain. She was seen as an inpatient. She denies any prior radiation therapy. She denies lupus, collagen vascular disease or scleroderma. She was seen as an inpatient today. PAST MEDICAL AND SURGICAL HISTORY 1. Emphysema 2. Cystoscopy 3. Proctoscopy SOCIAL HISTORY She is . She smokes. 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 FAMILY HISTORY Noncontributory ALLERGIES NO KNOWN DRUG ALLERGIES. MEDICATIONS As an outpatient Percocet. 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 REVIEW OF SYSTEMS She reports nausea, pelvic pain, back pain, postmenopausal bleeding. She denies cough, shortness of breath, chest pain. Denies muscle pain or joint pain. PHYSICAL EXAMINATION GENERAL: This is a pleasant female comfortable. KPS 90. EYES: Extraocular muscles. No scleral icterus. EXTREMITIES: No clubbing, cyanosis or edema. NEUROLOGIC: Alert and oriented, able to follow two step commands. SKIN: No rash, poor turgor. LUNGS: No use of accessory muscles breathing comfortably at rest. PATHOLOGY Please see above. IMPRESSION Ms. Jara with a locally advanced uterine carcinosarcoma stage III/IV. RECOMMENDATIONS We discussed palliative radiation therapy. We agreed with Dr. Cadena that aggressive palliation would be reasonable. Discussed her case with him involving the findings under anesthesia. She is scheduled for stent placement to the ureter by Dr. Stephens and we will schedule for a CT simulation in the next several days. We discussed radiation therapy may stop bleeding, may help with pain control. It is difficult to know how local control would be obtained. We discussed potential systemic chemotherapy. We will schedule for a CT simulation. Complex blocking will be done. Plan approximately 45 Gy or greater to higher based on dose distension. She is agreeable with this approach. Lorena Fregoso MD Radiation Oncologist TRAVIS/GM /6:09 PM /6:56 AM MAXIMO
[2017-03-22] MEDS: SODIUM CHLORIDE 0.9% FLUSH 10 ML FLUSH IV FLUSH SCH ×2 (08:02→22:26)
[2017-03-22] MEDS: HYDROmorphone HCL PF 1 MG/ML VIAL IV PRN (10:10)
--- NOTE | 2017-03-22 11:34 | HHI.PR ---
Subjective Remarks Follow-up for sepsis related to UTI, uterine malignancy. Patient is currently doing well. No nausea or vomiting. She is sitting at the side of the bed and getting ready for radiation treatment this morning. Objective Vitals Vital Signs Date Time Temp Pulse Resp B/P (MAP) Pulse Ox O2 Delivery O2 Flow Rate FiO2 03/22/17 09:53 92 Nasal Cannula 2.00 03/22/17 08:09 97 03/22/17 07:50 96.7 99 20 109/53 (71) 93 03/22/17 04:02 94 03/22/17 04:00 98.3 100 17 112/64 (80) 92 03/22/17 00:34 87 03/22/17 00:00 96.0 88 17 113/72 (86) 94 03/21/17 20:07 82 03/21/17 20:00 96.9 79 17 97/52 (67) 98 03/21/17 16:00 100.1 93 18 110/60 (77) 96 03/21/17 16:00 100.1 93 18 110/60 (77) 96 03/21/17 16:00 100 03/21/17 12:00 99.1 98 16 105/69 (81) 94 03/21/17 12:00 100 I/O 03/21/17 03/21/17 03/21/17 03/22/17 03/22/17 03/22/17 07:00 15:00 23:00 07:00 15:00 23:00 Intake Total 610 ml 760 ml 1100 ml Output Total 375 ml 800 ml 1400 ml Balance 235 ml -40 ml -300 ml Intake Oral 10 ml 600 ml IV Total 600 ml 160 ml 1100 ml Output Urine Total 375 ml 800 ml 1400 ml Estimated Blood Loss 0 ml # Voids 1 Result Diagram: 03/21/17 1620 03/21/17 1620 Imaging Last Impressions Abdomen/Pelvis CT 03/18/17 1205 Signed Impressions: Service Date/Time: Saturday, March 18, 2017 13:02 - CONCLUSION: 1. Large heterogeneous pelvic mass is not significantly changed in size. 2. Right ureter is now obstructed distally. Mild hydronephrosis now seen and with associated swelling and delayed nephrogram of the right kidney. Retroperitoneal lymphadenopathy narrowing the 2 right renal arteries may also be contributing to the delayed nephrogram. 3. Metastatic retroperitoneal lymphadenopathy again noted, similar to before. Most of the nodes appear partly necrotic. 4. Trace free fluid now seen in the pelvic cul-de-sac. No perceptible abscess. 5. Subcentimeter hypodensity of the liver is unchanged and most likely a benign cyst. Mateo Costa MD Chest X-Ray 03/18/17 1155 Signed Impressions: Service Date/Time: Saturday, March 18, 2017 12:10 - CONCLUSION: Emphysema. No evidence of acute cardiopulmonary disease. Mateo Costa MD Objective Remarks GENERAL: Alert, oriented 3, NAD. SKIN: Warm and dry. HEAD: Normocephalic. EYES: No scleral icterus. No injection or drainage. NECK: Supple, trachea midline. No JVD or lymphadenopathy. CARDIOVASCULAR: Regular rate and rhythm without murmurs, gallops, or rubs. RESPIRATORY: Breath sounds equal bilaterally. No accessory muscle use. GASTROINTESTINAL: Abdomen soft, non-tender, nondistended. MUSCULOSKELETAL: No cyanosis, or edema. BACK: Nontender without obvious deformity. No CVA tenderness. Procedures 03/21/2017 Cystoscopy, right retrograde pyelogram and intermodal dispatcher right ureteral stent insertion A/P Problem List: (1) Post-menopausal bleeding ICD Code: N95.0 - Postmenopausal bleeding Status: Acute (2) Pelvic mass in female ICD Code: R19.00 - Pelvic mass in female Status: Acute Assessment and Plan 57-year-old female admitted secondary to UTI and sepsis. Stent places morning for obstructive uropathy. Trial transitioned to Percocet as baseline pain treatment rather than IV Dilaudid. Monitor for any signs of nausea. Monitor for pain control. CBC and BMP in the morning. Labs ordered. Escherichia coli UTI Escherichia coli bacteremia Continue Levaquin IV per infectious disease Urine and blood cultures are positive for Escherichia coli. Urinary obstruction Moderate right Hydronephrosis Uterine carcinosarcoma Vaginal bleeding Status post cystoscopy, long-term right ureteral stent insertion. Continue radiation treatments to decrease tumor burden. Palliative chemotherapy after radiation will be considered by gynecological oncology. Not a candidate for surgery due to extensive tumor burden. LATOYA Resolved Follow renal function Hyponatremia Hypokalemia May have been secondary to nausea and vomiting Follow renal function CBC and BMP pending this morning. Potassium was 2.7 on 03/21/2017. Patient received potassium replacements. Repeat labs pending. Diarrhea, improving. Continue IV hydration Follow clinically Monitor electrolytes Full code. SCDs. Azalea Chavarria DO Mar 22, 2017 11:34
[2017-03-22 13:23] LABS: AUTOMATED NEUTROPHIL # 18.8 TH/MM3 (1.8-7.7); BASOPHIL # 0.1 TH/MM3 (0-0.2); BASOPHIL % 0.3 % (0.0-2.0); EOSINOPHIL # 0.2 TH/MM3 (0-0.4); EOSINOPHIL % 0.8 % (0.0-4.0); HEMATOCRIT 34.6 % (35.0-46.0); HEMO FLAGS DIFF FINAL; LYMPH % 5.3 % (9.0-44.0); LYMPHOCYTE # 1.2 TH/MM3 (1.0-4.8); MEAN CELL VOLUME 85.1 FL (80.0-100.0); MEAN CORPUSCULAR HEMOGLOBIN 28.4 PG (27.0-34.0); MEAN CORPUSCULAR HGB CONC 33.4 % (32.0-36.0); MONO % 6.8 % (0.0-8.0); NEUT % 86.8 % (16.0-70.0); PLATELET COUNT 258 TH/MM3 (150-450); RED BLOOD COUNT 4.07 MIL/MM3 (4.00-5.30); RED CELL DISTRIBUTION WIDTH 13.6 % (11.6-17.2); WHITE BLOOD COUNT 21.7 TH/MM3 (4.0-11.0)
[2017-03-22 13:51] LABS: ALKALINE PHOSPHATASE 166 U/L (45-117); ALT (GPT) 15 U/L (10-53); ANION GAP 8 MEQ/L (5-15); AST (GOT) 22 U/L (15-37); BICARBONATE 25.2 MEQ/L (21.0-32.0); BLOOD UREA NITROGEN 4 MG/DL (7-18); CHLORIDE 99 MEQ/L (98-107); GLOMERULAR FILTRATION RATE 110 ML/MIN (>89); POTASSIUM 3.9 MEQ/L (3.5-5.1); SODIUM (NA) 132 MEQ/L (136-145); TOTAL BILIRUBIN ADULT 0.4 MG/DL (0.2-1.0)
[2017-03-22] MEDS: LEVOFLOXACIN 750 MG PREMIX INJ 150 ML IV SCH (17:06)
[2017-03-22] MEDS: PANTOPRAZOLE SOD 40 MG DELAYED RELEASE TAB PO SCH (17:07)
--- NOTE | 2017-03-22 18:40 | HHI.IDPN ---
Subjective Subjective Remarks Ms. Jara is a 57-year-old female who was recently diagnosed with uterine carcinosarcoma approximately 4 days back she had a cystoscopy, proctoscopy and endocervical/endometrial mass biopsy. Patient has a history of chronic vaginal bleeding, weight loss, back pain. Proctosigmoidoscopy showed extrinsic compression of the bladder. Patient returned to the emergency department because of persistent nausea vomiting and constant sharp severe generalized abdominal as well as back pain. This was associated with burning upon urination, weakness, dizziness and feeling warm. Repeat CT of the abdomen and pelvis showed pelvic mass not significant change from days prior but the right ureter showed mild hydronephrosis and trace fluid in the cul-de-sac. Patient was initially at [facility] and was transferred to the main hospital. Currently she is on hospitalist service. She underwent a sepsis workup blood cultures on admission now are positive for Escherichia coli, Verigene with no CTX-M marker. Urine cultures are positive for GNR. ID consulted for mment of complicated UTI secondary to obstruction from large uterine mass. And some of my evaluation patient is currently admitted on 7 E. floor. She is maintaining her vital signs and appears to be clinically stable. She reports to me that she is going to have a stent placement. Medical records are reviewed and appears that Dr. Clifton as well as Dr. Stephens have seen the patient and there is a plan for stent placement tomorrow. Also it appears that patient has been offered palliative radiation therapy. Overnight events reviewed. Low grade temps overnight 100.1 No rash No diarrhea Complains of discharge from vaginal area around her pak catheter. Complains of abdominal discomfort mostly positional, worse on laying down. Antibiotics Levaquin IV Lines Line sites with no e.o infection. Past Medical History reviewed Allergies: Uncoded Allergies: ADHESIVES (Allergy, Unknown, rash, 03/14/17) Objective . Vital Signs Date Time Temp Pulse Resp B/P (MAP) Pulse Ox O2 Delivery O2 Flow Rate FiO2 03/22/17 17:00 91 03/22/17 15:50 98.8 94 20 121/77 (92) 96 03/22/17 11:50 97.1 106 20 149/72 (97) 93 03/22/17 09:53 92 Nasal Cannula 2.00 03/22/17 08:09 97 03/22/17 07:50 96.7 99 20 109/53 (71) 93 03/22/17 04:02 94 03/22/17 04:00 98.3 100 17 112/64 (80) 92 03/22/17 00:34 87 03/22/17 00:00 96.0 88 17 113/72 (86) 94 03/21/17 20:07 82 03/21/17 20:00 96.9 79 17 97/52 (67) 98 03/22/17 03/22/17 03/23/17 15:00 23:00 07:00 Intake Total 795 ml Output Total 500 ml Balance 295 ml Intake Oral 420 ml IV Total 375 ml Output Urine Total 500 ml # Bowel Movements 0 . Laboratory Tests Test 03/21/17 16:20 03/22/17 13:04 White Blood Count 16.1 TH/MM3 21.7 TH/MM3 Red Blood Count 3.98 MIL/MM3 4.07 MIL/MM3 Hemoglobin 11.3 GM/DL 11.6 GM/DL Hematocrit 33.8 % 34.6 % Mean Corpuscular Volume 85.1 FL 85.1 FL Mean Corpuscular Hemoglobin 28.5 PG 28.4 PG Mean Corpuscular Hemoglobin Concent 33.5 % 33.4 % Red Cell Distribution Width 13.4 % 13.6 % Platelet Count 211 TH/MM3 258 TH/MM3 Mean Platelet Volume 8.5 FL 8.5 FL Neutrophils (%) (Auto) 87.2 % 86.8 % Lymphocytes (%) (Auto) 4.7 % 5.3 % Monocytes (%) (Auto) 7.1 % 6.8 % Eosinophils (%) (Auto) 0.8 % 0.8 % Basophils (%) (Auto) 0.2 % 0.3 % Neutrophils # (Auto) 14.0 TH/MM3 18.8 TH/MM3 Lymphocytes # (Auto) 0.8 TH/MM3 1.2 TH/MM3 Monocytes # (Auto) 1.1 TH/MM3 1.5 TH/MM3 Eosinophils # (Auto) 0.1 TH/MM3 0.2 TH/MM3 Basophils # (Auto) 0.0 TH/MM3 0.1 TH/MM3 CBC Comment DIFF FINAL DIFF FINAL Differential Comment Laboratory Tests Test 03/21/17 16:20 03/22/17 13:06 Blood Urea Nitrogen 5 MG/DL 4 MG/DL Creatinine 0.79 MG/DL 0.57 MG/DL Random Glucose 146 MG/DL 102 MG/DL Total Protein 5.4 GM/DL 5.9 GM/DL Albumin 1.8 GM/DL 1.8 GM/DL Calcium Level 7.3 MG/DL 7.6 MG/DL Alkaline Phosphatase 167 U/L 166 U/L Aspartate Amino Transf (AST/SGOT) 13 U/L 22 U/L Alanine Aminotransferase (ALT/SGPT) 13 U/L 15 U/L Total Bilirubin 0.4 MG/DL 0.4 MG/DL Sodium Level 131 MEQ/L 132 MEQ/L Potassium Level 2.7 MEQ/L 3.9 MEQ/L Chloride Level 98 MEQ/L 99 MEQ/L Carbon Dioxide Level 27.7 MEQ/L 25.2 MEQ/L Anion Gap 5 MEQ/L 8 MEQ/L Estimat Glomerular Filtration Rate 76 ML/MIN 110 ML/MIN Protein Corrected Calcium 8.2 MG/DL Magnesium Level 1.8 MG/DL Microbiology Date/Time Source Procedure Growth Status 03/20/17 05:40 Blood Peripheral Aerobic Blood Culture - Preliminary NO GROWTH IN 2 DAYS Resulted 03/20/17 05:40 Blood Peripheral Anaerobic Blood Culture - Preliminary NO GROWTH IN 2 DAYS Resulted 03/20/17 05:33 Blood Peripheral Aerobic Blood Culture - Preliminary NO GROWTH IN 2 DAYS Resulted 03/20/17 05:33 Blood Peripheral Anaerobic Blood Culture - Preliminary NO GROWTH IN 2 DAYS Resulted Imaging Last Impressions Abdomen/Pelvis CT 03/18/17 1205 Signed Impressions: Service Date/Time: Saturday, March 18, 2017 13:02 - CONCLUSION: 1. Large heterogeneous pelvic mass is not significantly changed in size. 2. Right ureter is now obstructed distally. Mild hydronephrosis now seen and with associated swelling and delayed nephrogram of the right kidney. Retroperitoneal lymphadenopathy narrowing the 2 right renal arteries may also be contributing to the delayed nephrogram. 3. Metastatic retroperitoneal lymphadenopathy again noted, similar to before. Most of the nodes appear partly necrotic. 4. Trace free fluid now seen in the pelvic cul-de-sac. No perceptible abscess. 5. Subcentimeter hypodensity of the liver is unchanged and most likely a benign cyst. Mateo Costa MD Chest X-Ray 03/18/17 1155 Signed Impressions: Service Date/Time: Saturday, March 18, 2017 12:10 - CONCLUSION: Emphysema. No evidence of acute cardiopulmonary disease. Mateo Costa MD Physical Exam GENERAL:Thin built patient, in no apparent distress. SKIN: No rashes, ecchymoses or lesions. Cool and dry. HEAD: Atraumatic. Normocephalic. No temporal or scalp tenderness. EYES: Pupils equal round and reactive. Extraocular motions intact. No scleral icterus. No injection or drainage. ENT: Nose without bleeding, purulent drainage or septal hematoma. Throat without erythema, tonsillar hypertrophy or exudate. Uvula midline. Airway patent. NECK: Trachea midline. No JVD or lymphadenopathy. Supple, nontender, no meningeal signs. CARDIOVASCULAR: Regular rate and rhythm without murmurs, gallops, or rubs. RESPIRATORY: Clear to auscultation. Breath sounds equal bilaterally. No wheezes , rales, or rhonchi. GASTROINTESTINAL: Abdomen soft, nondistended. Right CVA tenderness. Lower abd tenderness. MUSCULOSKELETAL: Extremities without clubbing, cyanosis, or edema. No joint tenderness, effusion, or edema noted. No calf tenderness. Negative Homans sign bilaterally. NEUROLOGICAL: Awake and alert. Grossly non focal Psych: cooperative IV line sites with no e.o infection. Assessment & Plan Remarks Sepsis present on admission. Escherichia coli gram-negative nino bacteremia likely secondary to UTI Complicated UTI with obstruction secondary to large uterine mass. Uterine cancer with retroperitoneal adenopathy likely advanced stage. Has been offered palliative radiation therapy. Persistent fevers: ? source control not achieved yet. Hopefully stent placement will help relieve the infected urine in hydronephrotic kidney. Hypoalbuminemia: nutritional, cancer. Recs Continue Levaquin IV for now. Follow Repeat blood cultures x 2. CXR today. add Ensure to meals. Deja Grimes to consider adding nebs as pt on oxygen to maintain sats. Occ wheezes on exam. Pt agreed to Hepatitis and HIV screen spent 20 mins counseling to avoi/quit smoking. Follow cultures Follow clinically. Deja pt and RN Rn reports patient constipated. made aware. Case Management note: If repeat blood cultures are negative may not need IV antibiotics. Jenny Jackson MD Mar 22, 2017 18:40
[2017-03-22] MEDS ORDERED: RESP: ALBUTEROL 2.5 MG/IPRATROPIUM 0.5 MG NEB (PRN) NEB (19:30)
[2017-03-22] MEDS ORDERED: BISACODYL 10 MG SUPP RECTAL PRN (19:30)
[2017-03-22] MEDS ORDERED: SENNOSIDES 8.6 MG TAB PO PRN (19:30)
--- NOTE | 2017-03-22 22:06 | RADRPT ---
EXAM DATE/TIME: 03/22/2017 21:33 [facility] COMPARISON: CT ABDOMEN & PELVIS W CONTRAST, February 13, 2017, 17:06. CHEST SINGLE AP, March 18, 2017, 12:10. CHES T SINGLE AP, March 18, 2017, 16:21. INDICATIONS : Short of breath, pneumonia. MEDICAL HISTORY : Chronic obstructive pulmonary disease. Congestive heart failure. SURGICAL HISTORY : None. ENCOUNTER: Subsequent ACUITY: 4 - 6 days PAIN SCORE: 0/10 LOCATION: Bilateral chest FINDINGS: A single view of the chest demonstrates severe emphysematous change in the left upper lung with very little parenchymal markings seen. This pattern is stable. There is some compression of the mid and lo wer left lung. The heart size is normal. The right lung is clear. No effusion is seen. The bony struc tures are intact. CONCLUSION: Persistent severe emphysematous change in the left upper lung with some compression/atelectasis at th e left mid and lower lung. Mateo Harrington MD on March 22, 2017 at 22:03 Board Certified Radiologist. This report was verified electronically.
[2017-03-22] MEDS: DOCUSATE SODIUM 50 MG/SENNA 8.6 MG TAB PO SCH (22:25)
[2017-03-23] VITALS (9 sets, daily range): BP systolic 115–155; BP diastolic 65–76; PULSE 84–105; RESP 16–18; TEMP 96.4–99.1; O2SAT 92–96
[2017-03-23] MEDS: oxyCODONE/ACETAMINOPHEN 7.5 MG/325 MG TAB PO PRN ×5 (02:29→22:36)
--- NOTE | 2017-03-23 08:06 | PD.ONC.PN ---
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 Angelo pak draining pt states pain is controlled with medication but it is very painful when medication wares off Has not been OOB, encouraged her to get OOB to chair and ambulate...talked with RN Had radiation simulation yesterday will be starting treatment under direction of Dr. Fregoso. anticipate IV chemo once radiation completed Objective Data Date Time Temp Pulse Resp B/P (MAP) Pulse Ox O2 Delivery O2 Flow Rate FiO2 03/23/17 04:00 96.8 105 18 155/76 (102) 92 03/23/17 00:19 96 03/23/17 00:00 97.8 84 18 115/65 (82) 95 03/22/17 20:00 100 03/22/17 20:00 98.4 94 17 126/75 (92) 93 03/22/17 17:00 91 03/22/17 15:50 98.8 94 20 121/77 (92) 96 03/22/17 11:50 97.1 106 20 149/72 (97) 93 03/22/17 09:53 92 Nasal Cannula 2.00 03/22/17 08:09 97 03/23/17 03/23/17 03/23/17 07:00 15:00 23:00 Output Total 1000 ml Balance -1000 ml Result Diagram: 03/22/17 1304 03/22/17 1306 Laboratory Results Laboratory Tests Test 03/22/17 13:04 03/22/17 13:06 03/23/17 06:06 White Blood Count 21.7 TH/MM3 Red Blood Count 4.07 MIL/MM3 Hemoglobin 11.6 GM/DL Hematocrit 34.6 % Mean Corpuscular Volume 85.1 FL Mean Corpuscular Hemoglobin 28.4 PG Mean Corpuscular Hemoglobin Concent 33.4 % Red Cell Distribution Width 13.6 % Platelet Count 258 TH/MM3 Mean Platelet Volume 8.5 FL Neutrophils (%) (Auto) 86.8 % Lymphocytes (%) (Auto) 5.3 % Monocytes (%) (Auto) 6.8 % Eosinophils (%) (Auto) 0.8 % Basophils (%) (Auto) 0.3 % Neutrophils # (Auto) 18.8 TH/MM3 Lymphocytes # (Auto) 1.2 TH/MM3 Monocytes # (Auto) 1.5 TH/MM3 Eosinophils # (Auto) 0.2 TH/MM3 Basophils # (Auto) 0.1 TH/MM3 CBC Comment DIFF FINAL Differential Comment Blood Urea Nitrogen 4 MG/DL Creatinine 0.57 MG/DL Random Glucose 102 MG/DL Total Protein 5.9 GM/DL Albumin 1.8 GM/DL Calcium Level 7.6 MG/DL Alkaline Phosphatase 166 U/L Aspartate Amino Transf (AST/SGOT) 22 U/L Alanine Aminotransferase (ALT/SGPT) 15 U/L Total Bilirubin 0.4 MG/DL Sodium Level 132 MEQ/L Potassium Level 3.9 MEQ/L Chloride Level 99 MEQ/L Carbon Dioxide Level 25.2 MEQ/L Anion Gap 8 MEQ/L Estimat Glomerular Filtration Rate 110 ML/MIN Magnesium Level 1.8 MG/DL Imaging Studies Last Impressions Chest X-Ray 03/22/17 0000 Signed Impressions: Service Date/Time: Wednesday, March 22, 2017 21:33 - CONCLUSION: Persistent severe emphysematous change in the left upper lung with some compression/atelectasis at the left mid and lower lung. Mateo Harrington MD Abdomen/Pelvis CT 03/18/17 1205 Signed Impressions: Service Date/Time: Saturday, March 18, 2017 13:02 - CONCLUSION: 1. Large heterogeneous pelvic mass is not significantly changed in size. 2. Right ureter is now obstructed distally. Mild hydronephrosis now seen and with associated swelling and delayed nephrogram of the right kidney. Retroperitoneal lymphadenopathy narrowing the 2 right renal arteries may also be contributing to the delayed nephrogram. 3. Metastatic retroperitoneal lymphadenopathy again noted, similar to before. Most of the nodes appear partly necrotic. 4. Trace free fluid now seen in the pelvic cul-de-sac. No perceptible abscess. 5. Subcentimeter hypodensity of the liver is unchanged and most likely a benign cyst. Mateo Costa MD Administered Medications Medications (Trade) Dose Ordered Sig/Mata Route PRN Reason Start Time Stop Time Status Last Admin Dose Admin Sodium Chloride (NS Flush) 2 ml BID IV FLUSH 03/18/17 21:00 03/22/17 08:02 Hydromorphone HCl (Dilaudid Pf Inj) 0.5 mg Q3H PRN IV BREAKTHROUGH PAIN 03/18/17 14:15 03/22/17 10:10 Potassium Chloride 10 meq/ Dextrose/Sodium Chloride 1,005 ml @ 75 mls/hr [id number] IV 03/19/17 13:30 03/22/17 22:26 Acetaminophen (Tylenol) 650 mg Q4H PRN PO TEMPERATURE > 100.5 F 03/19/17 16:45 03/21/17 17:30 Levofloxacin/ Dextrose 150 ml @ 100 mls/hr Q24H IV 03/19/17 17:00 03/22/17 17:06 Hydromorphone HCl (Dilaudid Pf Inj) 1 mg Q3H PRN IV Pain 6-10;if unable to take PO 03/20/17 14:15 Future Hold 03/21/17 14:15 Oxycodone/ Acetaminophen (Percocet 5-325 Mg) 1 tab Q4H PRN PO Pain 3 to 6 03/21/17 14:45 03/23/17 04:39 Oxycodone/ Acetaminophen (Percocet 7.5-325 Mg) 1 tab Q4H PRN PO Pain 7 to 10 03/21/17 14:45 03/23/17 02:29 Pantoprazole Sodium (Protonix) 40 mg Q24H PO 03/22/17 17:00 03/22/17 17:07 Objective Remarks GENERAL: frail, well-developed patient. SKIN: Warm and dry. HEAD: Normocephalic. EYES: No scleral icterus. No injection or drainage. CARDIOVASCULAR: Regular rate and rhythm without murmurs. RESPIRATORY: Breath sounds equal bilaterally. No accessory muscle use. GASTROINTESTINAL: Abdomen firm with generalized tenderness EXTREMITIES: No cyanosis, or edema. MUSCULOSKELETAL: Adequate muscle tone. NEUROLOGICAL: No obvious focal deficit. Awake, alert, and oriented x3. PSYCHIATRIC: Appropriate mood and affect; insight and judgment normal. 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 - Malignant neoplasm of uterus, part unspecified Status: Acute Plan: Dr. Ildefonso cramer and pt has had simulation will start radiation. palliative chemo after radiation will be considered not a surgical candidate d/t extensive tumor burden and tumor infiltrating into surrounding tissues, bladder and bowel. (2) Pelvic mass in female ICD Codes: R19.00 - Pelvic mass in female Status: Acute (3) Post-menopausal bleeding ICD Codes: N95.0 - Postmenopausal bleeding Status: Acute (4) UTI (urinary tract infection) ICD Codes: N39.0 - Urinary tract infection, site not specified Status: Acute Plan: on IV abx levaquin increase in WBC: ID following and blood cultures - X 2 days stent placed by Dr. Stephens pak draining Problem Qualifiers (1) UTI (urinary tract infection): Sharif Randle Mar 23, 2017 08:06
[2017-03-23] MEDS: DOCUSATE SODIUM 50 MG/SENNA 8.6 MG TAB PO SCH ×2 (08:51→22:35)
[2017-03-23] MEDS: SODIUM CHLORIDE 0.9% FLUSH 10 ML FLUSH IV FLUSH SCH ×2 (08:52→21:00)
[2017-03-23] MEDS: POTASSIUM CHLORIDE INJ 10 MEQ in DEXT 5%-NACL 0.9% 1000 ML INJ 1,000 ML IV SCH ×2 (11:18→22:36)
--- NOTE | 2017-03-23 13:20 | HHI.PR ---
Subjective Remarks Follow-up for sepsis related to UTI, uterine malignancy. Feeling better today. Laying in bed, comfortable. Currently on room air. No fever, chills. Objective Vitals Vital Signs Date Time Temp Pulse Resp B/P (MAP) Pulse Ox O2 Delivery O2 Flow Rate FiO2 03/23/17 11:40 98.0 88 17 129/76 (93) 92 03/23/17 07:38 98.8 91 16 135/70 (91) 93 03/23/17 04:00 96.8 105 18 155/76 (102) 92 03/23/17 00:19 96 03/23/17 00:00 97.8 84 18 115/65 (82) 95 03/22/17 20:00 100 03/22/17 20:00 98.4 94 17 126/75 (92) 93 03/22/17 17:00 91 03/22/17 15:50 98.8 94 20 121/77 (92) 96 I/O 03/22/17 03/22/17 03/22/17 03/23/17 03/23/17 03/23/17 06:59 14:59 22:59 06:59 14:59 22:59 Intake Total 1100 ml 795 ml 150 ml Output Total 1400 ml 500 ml 650 ml 1000 ml Balance -300 ml 295 ml -500 ml -1000 ml Intake Oral 420 ml IV Total 1100 ml 375 ml 150 ml Output Urine Total 1400 ml 500 ml 650 ml 1000 ml # Bowel Movements 0 Result Diagram: 03/22/17 1304 03/22/17 1306 Objective Remarks GENERAL: Alert, oriented 3, NAD. SKIN: Warm and dry. HEAD: Normocephalic. EYES: No scleral icterus. No injection or drainage. NECK: Supple, trachea midline. No JVD or lymphadenopathy. CARDIOVASCULAR: Regular rate and rhythm without murmurs, gallops, or rubs. RESPIRATORY: Breath sounds equal bilaterally. No accessory muscle use. GASTROINTESTINAL: Abdomen soft, non-tender, nondistended. MUSCULOSKELETAL: No cyanosis, or edema. BACK: Nontender without obvious deformity. No CVA tenderness. Procedures 03/21/2017 Cystoscopy, right retrograde pyelogram and custodial right ureteral stent insertion A/P Problem List: (1) Post-menopausal bleeding ICD Code: N95.0 - Postmenopausal bleeding Status: Acute (2) Pelvic mass in female ICD Code: R19.00 - Pelvic mass in female Status: Acute Assessment and Plan 57-year-old female admitted secondary to UTI and sepsis. Stent places morning for obstructive uropathy. Trial transitioned to Percocet as baseline pain treatment rather than IV Dilaudid. Monitor for any signs of nausea. Monitor for pain control. CBC and BMP in the morning. Labs ordered. Escherichia coli UTI Escherichia coli bacteremia Continue Levaquin IV per infectious disease Urine and blood cultures are positive for Escherichia coli. Urinary obstruction Moderate right Hydronephrosis Uterine carcinosarcoma Vaginal bleeding Status post cystoscopy, long-term right ureteral stent insertion. Continue radiation treatments to decrease tumor burden. Palliative chemotherapy after radiation will be considered by gynecological oncology. Not a candidate for surgery due to extensive tumor burden. LATOYA Resolved Follow renal function Hyponatremia Hypokalemia May have been secondary to nausea and vomiting Follow renal function sodium is around 131-132. K+ improved from 2.7 --> 3.9. Mg 1.8. Constipation Started patient on various laxatives. Full code. SCDs. Azalea Chavarria DO Mar 23, 2017 13:20
[2017-03-23] MEDS: MAGNESIUM HYDROXIDE SUSP 30 ML CUP PO PRN (13:26)
--- NOTE | 2017-03-23 16:18 | HHI.IDPN ---
Subjective Subjective Remarks Ms. Jara is a 57-year-old female who was recently diagnosed with uterine carcinosarcoma approximately 4 days back she had a cystoscopy, proctoscopy and endocervical/endometrial mass biopsy. Patient has a history of chronic vaginal bleeding, weight loss, back pain. Proctosigmoidoscopy showed extrinsic compression of the bladder. Patient returned to the emergency department because of persistent nausea vomiting and constant sharp severe generalized abdominal as well as back pain. This was associated with burning upon urination, weakness, dizziness and feeling warm. Repeat CT of the abdomen and pelvis showed pelvic mass not significant change from days prior but the right ureter showed mild hydronephrosis and trace fluid in the cul-de-sac. Patient was initially at [facility] and was transferred to the main hospital. Currently she is on hospitalist service. She underwent a sepsis workup blood cultures on admission now are positive for Escherichia coli, Verigene with no CTX-M marker. Urine cultures are positive for GNR. ID consulted for mment of complicated UTI secondary to obstruction from large uterine mass. And some of my evaluation patient is currently admitted on 7 E. floor. She is maintaining her vital signs and appears to be clinically stable. She reports to me that she is going to have a stent placement. Medical records are reviewed and appears that Dr. Clifton as well as Dr. Stephens have seen the patient and there is a plan for stent placement tomorrow. Also it appears that patient has been offered palliative radiation therapy. Overnight events reviewed. No fevers. No rash No diarrhea Complains of abdominal discomfort mostly positional, worse on laying down. Antibiotics Levaquin IV Lines Line sites with no e.o infection. Past Medical History reviewed Allergies: Uncoded Allergies: ADHESIVES (Allergy, Unknown, rash, 03/14/17) Objective . Vital Signs Date Time Temp Pulse Resp B/P (MAP) Pulse Ox O2 Delivery O2 Flow Rate FiO2 03/23/17 11:40 98.0 88 17 129/76 (93) 92 03/23/17 07:38 98.8 91 16 135/70 (91) 93 03/23/17 04:00 96.8 105 18 155/76 (102) 92 03/23/17 00:19 96 03/23/17 00:00 97.8 84 18 115/65 (82) 95 03/22/17 20:00 100 03/22/17 20:00 98.4 94 17 126/75 (92) 93 03/22/17 17:00 91 03/23/17 03/23/17 03/24/17 15:00 23:00 07:00 Intake Total 60 ml Output Total 750 ml Balance -690 ml Intake Oral 60 ml Output Urine Total 750 ml . Laboratory Tests Test 03/21/17 16:20 03/22/17 13:04 White Blood Count 16.1 TH/MM3 21.7 TH/MM3 Red Blood Count 3.98 MIL/MM3 4.07 MIL/MM3 Hemoglobin 11.3 GM/DL 11.6 GM/DL Hematocrit 33.8 % 34.6 % Mean Corpuscular Volume 85.1 FL 85.1 FL Mean Corpuscular Hemoglobin 28.5 PG 28.4 PG Mean Corpuscular Hemoglobin Concent 33.5 % 33.4 % Red Cell Distribution Width 13.4 % 13.6 % Platelet Count 211 TH/MM3 258 TH/MM3 Mean Platelet Volume 8.5 FL 8.5 FL Neutrophils (%) (Auto) 87.2 % 86.8 % Lymphocytes (%) (Auto) 4.7 % 5.3 % Monocytes (%) (Auto) 7.1 % 6.8 % Eosinophils (%) (Auto) 0.8 % 0.8 % Basophils (%) (Auto) 0.2 % 0.3 % Neutrophils # (Auto) 14.0 TH/MM3 18.8 TH/MM3 Lymphocytes # (Auto) 0.8 TH/MM3 1.2 TH/MM3 Monocytes # (Auto) 1.1 TH/MM3 1.5 TH/MM3 Eosinophils # (Auto) 0.1 TH/MM3 0.2 TH/MM3 Basophils # (Auto) 0.0 TH/MM3 0.1 TH/MM3 CBC Comment DIFF FINAL DIFF FINAL Differential Comment Laboratory Tests Test 03/21/17 16:20 03/22/17 13:06 Blood Urea Nitrogen 5 MG/DL 4 MG/DL Creatinine 0.79 MG/DL 0.57 MG/DL Random Glucose 146 MG/DL 102 MG/DL Total Protein 5.4 GM/DL 5.9 GM/DL Albumin 1.8 GM/DL 1.8 GM/DL Calcium Level 7.3 MG/DL 7.6 MG/DL Alkaline Phosphatase 167 U/L 166 U/L Aspartate Amino Transf (AST/SGOT) 13 U/L 22 U/L Alanine Aminotransferase (ALT/SGPT) 13 U/L 15 U/L Total Bilirubin 0.4 MG/DL 0.4 MG/DL Sodium Level 131 MEQ/L 132 MEQ/L Potassium Level 2.7 MEQ/L 3.9 MEQ/L Chloride Level 98 MEQ/L 99 MEQ/L Carbon Dioxide Level 27.7 MEQ/L 25.2 MEQ/L Anion Gap 5 MEQ/L 8 MEQ/L Estimat Glomerular Filtration Rate 76 ML/MIN 110 ML/MIN Protein Corrected Calcium 8.2 MG/DL Magnesium Level 1.8 MG/DL Imaging Last Impressions Abdomen/Pelvis CT 03/18/17 1205 Signed Impressions: Service Date/Time: Saturday, March 18, 2017 13:02 - CONCLUSION: 1. Large heterogeneous pelvic mass is not significantly changed in size. 2. Right ureter is now obstructed distally. Mild hydronephrosis now seen and with associated swelling and delayed nephrogram of the right kidney. Retroperitoneal lymphadenopathy narrowing the 2 right renal arteries may also be contributing to the delayed nephrogram. 3. Metastatic retroperitoneal lymphadenopathy again noted, similar to before. Most of the nodes appear partly necrotic. 4. Trace free fluid now seen in the pelvic cul-de-sac. No perceptible abscess. 5. Subcentimeter hypodensity of the liver is unchanged and most likely a benign cyst. Mateo Costa MD Chest X-Ray 03/18/17 1155 Signed Impressions: Service Date/Time: Saturday, March 18, 2017 12:10 - CONCLUSION: Emphysema. No evidence of acute cardiopulmonary disease. Mateo Costa MD Physical Exam GENERAL:Thin built patient, in no apparent distress. SKIN: No rashes, ecchymoses or lesions. Cool and dry. HEAD: Atraumatic. Normocephalic. No temporal or scalp tenderness. EYES: Pupils equal round and reactive. Extraocular motions intact. No scleral icterus. No injection or drainage. ENT: Nose without bleeding, purulent drainage or septal hematoma. Throat without erythema, tonsillar hypertrophy or exudate. Uvula midline. Airway patent. NECK: Trachea midline. No JVD or lymphadenopathy. Supple, nontender, no meningeal signs. CARDIOVASCULAR: Regular rate and rhythm without murmurs, gallops, or rubs. RESPIRATORY: Clear to auscultation. Breath sounds equal bilaterally. No wheezes , rales, or rhonchi. GASTROINTESTINAL: Abdomen soft, nondistended. Right CVA tenderness. Lower abd tenderness. MUSCULOSKELETAL: Extremities without clubbing, cyanosis, or edema. No joint tenderness, effusion, or edema noted. No calf tenderness. Negative Homans sign bilaterally. NEUROLOGICAL: Awake and alert. Grossly non focal Psych: cooperative IV line sites with no e.o infection. Assessment & Plan Remarks Sepsis present on admission. Escherichia coli gram-negative nino bacteremia likely secondary to UTI Complicated UTI with obstruction secondary to large uterine mass. Uterine cancer with retroperitoneal adenopathy likely advanced stage. Has been offered palliative radiation therapy. Persistent fevers: ? source control not achieved yet. Hopefully stent placement will help relieve the infected urine in hydronephrotic kidney. Hypoalbuminemia: nutritional, cancer. Recs Continue Levaquin IV for now. CXR today: no pneumonia. Negative Hepatitis and HIV screen Follow cultures Follow clinically. D.w pt plan for the day Case Management note: If repeat blood cultures are negative may not need IV antibiotics. Jenny Jackson MD Mar 23, 2017 16:18
[2017-03-23] MEDS: PANTOPRAZOLE SOD 40 MG DELAYED RELEASE TAB PO SCH (18:06)
[2017-03-23] MEDS: LEVOFLOXACIN 750 MG PREMIX INJ 150 ML IV SCH (18:06)
[2017-03-23] MEDS: ONDANSETRON HCL 4 MG/2 ML VIAL IVP PRN (18:12)
[2017-03-24] VITALS (8 sets, daily range): BP systolic 110–176; BP diastolic 60–95; PULSE 82–97; RESP 16–20; TEMP 97.4–98.7; O2SAT 90–96
[2017-03-24] MEDS: oxyCODONE/ACETAMINOPHEN 7.5 MG/325 MG TAB PO PRN ×2 (02:16→08:23)
[2017-03-24] MEDS: POTASSIUM CHLORIDE INJ 10 MEQ in DEXT 5%-NACL 0.9% 1000 ML INJ 1,000 ML IV SCH ×2 (02:19→23:33)
[2017-03-24] MEDS: ONDANSETRON HCL 4 MG/2 ML VIAL IVP PRN ×2 (07:16→13:27)
[2017-03-24] MEDS: SODIUM CHLORIDE 0.9% FLUSH 10 ML FLUSH IV FLUSH SCH ×2 (08:22→21:44)
[2017-03-24] MEDS: DOCUSATE SODIUM 50 MG/SENNA 8.6 MG TAB PO SCH ×2 (08:24→21:43)
[2017-03-24] MEDS: HYDROmorphone HCL PF 1 MG/ML VIAL IV PRN ×3 (08:34→21:44)
--- NOTE | 2017-03-24 08:58 | HHI.PR ---
Subjective Remarks Currently pt is having a lot of nausea, dry hiving (hypersalivation) and abdominal pain which she rates a 10/10. She is due for her dilaudid therefore RN will be giving it to her now. She tells me pain is the same and not worsened. Pt denies any chest pain, SOB. Objective Vitals Vital Signs Date Time Temp Pulse Resp B/P (MAP) Pulse Ox O2 Delivery O2 Flow Rate FiO2 03/24/17 04:00 98.1 95 16 129/69 (89) 92 03/24/17 03:42 16 03/24/17 00:00 97.4 88 18 110/65 (80) 92 03/23/17 22:05 94 Nasal Cannula 2.00 03/23/17 20:00 99.1 93 18 120/68 (85) 92 03/23/17 18:34 96 Nasal Cannula 2.00 03/23/17 15:40 96.4 92 17 139/69 (92) 96 03/23/17 11:40 98.0 88 17 129/76 (93) 92 I/O 03/23/17 03/23/17 03/23/17 03/24/17 03/24/17 03/24/17 07:00 15:00 23:00 07:00 15:00 23:00 Intake Total 60 ml 630 ml 360 ml Output Total 1000 ml 750 ml 1100 ml 400 ml Balance -1000 ml -690 ml -470 ml -40 ml Intake Oral 60 ml 480 ml 360 ml IV Total 150 ml Output Urine Total 1000 ml 750 ml 1100 ml 400 ml Result Diagram: 03/22/17 1304 03/22/17 1306 Imaging Last Impressions Chest X-Ray 03/22/17 0000 Signed Impressions: Service Date/Time: Wednesday, March 22, 2017 21:33 - CONCLUSION: Persistent severe emphysematous change in the left upper lung with some compression/atelectasis at the left mid and lower lung. Mateo Harrington MD Abdomen/Pelvis CT 03/18/17 1205 Signed Impressions: Service Date/Time: Saturday, March 18, 2017 13:02 - CONCLUSION: 1. Large heterogeneous pelvic mass is not significantly changed in size. 2. Right ureter is now obstructed distally. Mild hydronephrosis now seen and with associated swelling and delayed nephrogram of the right kidney. Retroperitoneal lymphadenopathy narrowing the 2 right renal arteries may also be contributing to the delayed nephrogram. 3. Metastatic retroperitoneal lymphadenopathy again noted, similar to before. Most of the nodes appear partly necrotic. 4. Trace free fluid now seen in the pelvic cul-de-sac. No perceptible abscess. 5. Subcentimeter hypodensity of the liver is unchanged and most likely a benign cyst. Mateo Costa MD Objective Remarks GENERAL: Alert, oriented 3, appears tired and in pain HEAD: Normocephalic. EYES: EOMI NECK: trachea midline. CARDIOVASCULAR: Regular rate and rhythm without murmurs RESPIRATORY: Breath sounds equal bilaterally. no wheezing or use of accessory muscles. GASTROINTESTINAL: Abdomen soft, tender to light palpation w voluntary guarding. MUSCULOSKELETAL: No edema. Procedures 03/21/2017 Cystoscopy, right retrograde pyelogram and long term care social worker right ureteral stent insertion A/P Problem List: (1) Post-menopausal bleeding ICD Code: N95.0 - Postmenopausal bleeding Status: Acute (2) Pelvic mass in female ICD Code: R19.00 - Pelvic mass in female Status: Acute Assessment and Plan 57-year-old female admitted secondary to UTI and sepsis. s/p right stent placement for obstructive uropathy. Escherichia coli UTI Escherichia coli bacteremia Continue Levaquin IV per infectious disease Urine and blood cultures are positive for Escherichia coli. Urinary obstruction Moderate right Hydronephrosis Uterine carcinosarcoma Vaginal bleeding Status post cystoscopy, long-term right ureteral stent insertion. Continue radiation treatments to decrease tumor burden. Palliative chemotherapy after radiation will be considered by gynecological oncology. Not a candidate for surgery due to extensive tumor burden. continue to adjust pain meds as pain is not well controlled. LATOYA Resolved Follow renal function Hyponatremia Hypokalemia May have been secondary to nausea and vomiting Follow renal function stable at sodium is around 131-132. hypokalemia resolved. Constipation patient on various laxatives. Discharge Planning Radiation therapy will be started. Pain not well controlled. Continue to adjust pain meds. will consult palliative care for assistance w pain control. Karen Acuna MD Mar 24, 2017 08:58
[2017-03-24] MEDS: METOCLOPRAMIDE HCL 10 MG/2 ML VIAL IV PUSH PRN ×2 (10:44→21:48)
--- NOTE | 2017-03-24 11:35 | PD.CONS ---
Consult Service Palliative Care Consult Requested By Dr Acuna . Primary Care Physician No Primary Care Physician Reason for Consultation a. To assist with evaluation and management of symptoms including: pain, nausea b. To assist medical decision maker(s) with: better understanding of current medical conditions; weighing benefits/burdens of medical treatment options; making medical treatment decisions. HPI History of Present Illness This 57-year-old female presented to the ED on 03/18/17 with complaints of persistent nausea, vomiting and sharp abdominal pain with associated dysuria, weakness, dizziness, feeling warm. She is known to have recent diagnosis of uterine carcinosarcoma. She apparently 4 days prior to this presentation (03/14/17) had cystoscopy, proctoscopy, and endocervical/endometrial mass biopsy due to chronic vaginal bleeding. During the cystoscopy bladder never distended and there was concern that there could be a defect in the bladder possibly communicating with the tumor or peritoneal cavity.Proctosigmoidoscopy showed extrinsic compression which precluded evaluation beyond that point. * Repeat CT of abdomen pelvis shows pelvic mass not significant change but right ureter is not obstructed with mild hydronephrosis and trace fluid in the cul-de-sac. Dr. Clifton recommended transfer to the main hospital and admission to the medical service and consult to . Leukocytosis WBC 21.5. * At presentation patient endorsed difficulty breathing, noted to be tachypneic with crackles. Other ROS negative. * She was admitted for sepsis, UTI possible fistula. Patient on vancomycin, Zosyn, pancultures obtained. Hyponatremia felt to be secondary to vomiting. Started on Dilaudid for pain management, consulted for stenting or possible nephrostomy. Radiation oncology consulted. She also received Lasix for fluid overload. * [facility] oncology Dr Clifton known to patient consulted; notes uterus completely replaced with tumor. Pathology =The uterus was completely replaced with tumor. Pathology returned poorly differentiated malignant neoplasm, necrotic and fibrotic tissue and pattern and staining suggests that this may be a carcinosarcoma. Dr. Clifton further notes that patient had been feeling poorly for many weeks though pain was significantly worse in the days prior to presentation as well as nausea and vomiting. * [facility] SPECIALIST oncology further notes extensive disease, and discussions with the patient regarding difficult circumstances. Hysterectomy or other surgical intervention for tumor is not feasible as it has grown through the wall of the uterus and cervix and infiltrated into surrounding tissues all the way to pelvic sidewalls so much that it is causing obstruction right ureter. Furthermore there is extensive metastatic disease with retroperitoneal adenopathy including adenopathy near the r renal vessels that is causing some compromise to renal vessels. She was in favor of trying to palliate disease aggressively. Dr. Bang recommends best course of action would be to consider radiation therapy to pelvis to try to reduce tumor burden and prevent further ureteral obstruction and stop bleeding. Would also be prudent to consider radiation to adenopathy especially adenopathy causing compromise to renal vessels. After maximum palliative radiation has been given can discuss further any potential value of chemotherapy for metastatic disease. [facility] SPECIALIST Oncology feels symptoms are probably directly or indirectly related to underlying disease process and resulting in a significant pain and anxiety which is so severe which is an contributing to nausea vomiting and inability to take food and fluids. * Urology consulted:Moderate right hydroureteronephrosis most likely secondary to extrinsic compression of the right ureter from the large pelvic mass/ retroperitoneal adenopathy. Plan for cystoscopy right retrograde pyelogram and long-term ureteral stent placement. Could consider eventual stent removal if favorable response to radiation. * Infectious disease consulted: Patient with Escherichia coli gram-negative Sukumar bacteremia, likely secondary to UTI., Complicated UTI with obstruction/ persistent fevers. Stent placement should help relieve hydronephrotic kidney infected in urine. Recommend continue Zosyn, Levaquin, repeat blood cultures. Follow cultures. * 03/21/17 cystoscopy, right retrograde, right stent insertion * Radiation oncology consulted: Radiation oncology notes aggressive palliation reasonable, radiation therapy may stop bleeding and help with pain control. Difficult to know how local control will be obtained. Discussion of potential systemic chemotherapy. Plan for simulation. * 03/22 ID added hepatitis, HIV screen. Continued on IV Levaquin, following cultures. Ensure added for nutrition. Some constipation. PT following, ambulatory with a rolling walker. [Hepatitis, HIV screen negative] * 03/24 patient continues to have nausea, hypercellular elevation, abdominal pain rating 10/10. Patient reports to medical attending pain is the same. Palliative care consulted to assist with pain control. Still no bowel movement currently on scheduled Reglan, Senna, milk of mag, docusate. She has prn lactulose, Dulcolax suppository available (which have not been used yet). had been on Percocet 5-- now on Percocet 7.5 -10mg + dilaudid 0.5mg for breakthrough. PRNs used: --Dilaudid 0.5 every 3 hours--used 3 03/20, 5 03/19, x2 03/18 -- Percocet 5 x1 -- Percocet 7.5 x2 03/24, x5 03/23, x5 03/22 , -- Percocet 10mg added 03/24/17-- has not used yet. Pt seen in room, dual visit w Patel MCKEON. Met w pt few min at bedside, nurse , engineering tech arrived to bring pt down for abdominal imaging. Pt endorses pain 10/10, gets down 6-7/10 after prn percocet or dilaudid and then she falls asleep. She indicates pain would be tolerable 5-6/10. She describes a throbbing , aching pain diffuse across lower abdomen, does not radiate else where. Accompanied by nausea, and minimal emesis, she describes as " only bile". +also endorses constipation for several days despite PRNs used. Unable to discuss further as going for imaging. Will return later to continue consultation. Discuss abdominal imaging findings with ID, medical attending, nursing. 1430 Return later to see patient after abdominal imaging. Seen in her room, dual visit with Patel MCKEON.She is alert, oriented, pleasant and appropriate. Review abdominal imaging findings with her, review of hospital course, current conditions, treatment options etc. Further review of pain, ROS. She does indicate adequate relief with current pain regimen when she utilizes prn Percocet for hydromorphone/she then falls asleep and when she awakened pain comes back again. Review with patient potential options of additional medications for nausea, ileus, allowing ileus time to resolve, monitoring pain medication and prn requirements. Much review of balance of sedating effects with pain relief; if patient sleeps all day then she is higher risk for pneumonia and other sequelae of being lethargic and in bed. Her goals are currently aggressive, she is in agreement with treatment plan leaving prns as it is possibly titrating up if needed, additional medications to be added for nausea and ileus. . Function/Cognitive Trajectory Lives at home with her spouse, independent with self-care and walking without assistance. 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 She assists was some things as he is recently suffered 2 strokes. . Review of Systems Constitutional: COMPLAINS OF: Weight loss (unk amt), Dizziness (intermittent with bouts of nausea), Change in appetite (decrease), Pain (diffuse abdominal) Endocrine: COMPLAINS OF: Abnorml menstrual pattern (chronic vaginal bleeding) Eyes: DENIES: Eye pain, Vision loss, Double Vision Ears, nose, mouth, throat: COMPLAINS OF: Throat pain (mild irritation she relates to vomiting), DENIES: Oral lesions, Hoarseness, Ear Pain Respiratory: DENIES: Apneas, Cough, Sputum production, Shortness of breath Cardiovascular: DENIES: Chest pain Gastrointestinal: COMPLAINS OF: Abdominal pain (diffuse x weeks, worsened in the last couple days), Constipation, Nausea (intermittent for about the past week/after recent biopsy), Vomiting (intermittent), Anorexia, DENIES: Diarrhea, Difficulty Swallowing Genitourinary: COMPLAINS OF: Abnormal vaginal bleeding (chronic vaginal bleeding) Musculoskeletal: DENIES: Joint pain, Muscle aches, Joint Swelling Integumentary: DENIES: Rash Hematologic/Lymphatics: DENIES: Bruising Neurologic: COMPLAINS OF: Headache (intermittent with bouts of nausea), DENIES : Abnormal gait Psychiatric: DENIES: Anxiety Past Family Social History Uncoded Allergies: ADHESIVES (Allergy, Unknown, rash, 03/14/17) Past Medical History COPD Asthma Recent diagnoses uterine carcinosarcoma with extensive disease, metastasis . Past Surgical History Tonsillectomy Cystoscopy Proctoscopy, biopsies Reported Medications Lortab (Hydrocodone-Acetaminophen) 5-325 Mg Tab 1-2 Tab PO HS PRN . Current Medications Medications (Trade) Dose Ordered Sig/Mata Route Start Time Stop Time Status Last Admin (NS Flush) 2 ml UNSCH PRN IV FLUSH 03/18/17 14:15 (NS Flush) 2 ml BID IV FLUSH 03/18/17 21:00 03/22/17 08:02 (Zofran Inj) 4 mg Q6H PRN IVP 03/18/17 14:15 03/24/17 07:16 (Dilaudid Pf Inj) 0.5 mg Q3H PRN IV 03/18/17 14:15 03/24/17 08:34 (Narcan Inj) 0.4 mg UNSCH PRN IV 03/18/17 14:15 Potassium Chloride 10 meq/ Dextrose/Sodium Chloride 1,005 ml @ 75 mls/hr [id number] IV 03/19/17 13:30 03/24/17 02:19 (Tylenol) 650 mg Q4H PRN PO 03/19/17 16:45 03/21/17 17:30 Levofloxacin/ Dextrose 150 ml @ 100 mls/hr Q24H IV 03/19/17 17:00 03/23/17 18:06 (Dilaudid Pf Inj) 0.5 mg Q3H PRN IV 03/20/17 14:15 Future Hold (Dilaudid Pf Inj) 1 mg Q3H PRN IV 03/20/17 14:15 Future Hold 03/21/17 14:15 (Percocet 7.5-325 Mg) 1 tab Q4H PRN PO 03/21/17 14:45 03/24/17 08:23 (Protonix) 40 mg Q24H PO 03/22/17 17:00 03/23/17 18:06 (Duoneb Neb) 1 ampule Q4HR NEB PRN NEB 03/22/17 19:30 (Sharon-Colace) 1 tab BID PO 03/22/17 21:00 03/24/17 08:24 (Milk Of Magnesia Liq) 30 ml Q12H PRN PO 03/22/17 19:30 03/23/17 13:26 (Senokot) 17.2 mg Q12H PRN PO 03/22/17 19:30 03/23/17 11:20 (Dulcolax Supp) 10 mg DAILY PRN RECTAL 03/22/17 19:30 (Lactulose Liq) 30 ml DAILY PRN PO 03/22/17 19:30 (Percocet 10-325 Mg) 1 tab Q4H PRN PO 03/24/17 11:00 (Reglan Inj) 10 mg Q8H PRN IV PUSH 03/24/17 11:00 03/24/17 10:44 Family History No cancer Substance Use Tobacco: Smokes 1 PPD Alcohol: None Prescription med abuse: None Illicits: None . 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 x35 yrs. Originally from [place], is here with green card and legal resident. Has lived in [place] for 30+ years. Spiritual/Cultural Factors No particular islam affiliation. Believes in God and prays on her own. Does not desire air plant engineer support at this time. Living Will: Never completed Health Care Surrogate: Never completed Durable Power of Operations Processor: Never completed Ethical and Legal Issues Patient is currently alert, oriented and able to make her own decisions. She does not have advanced directives or HCS. Per [place] statutes if she became incapacitated her would be legal decision maker. Patient has verbally indicated today that she would want him to be her legal decision maker. Offered assistance with advanced directive, HCS during hospitalization, she does not wish to complete today palliative available to assist if she desires. Physical Exam Vital Signs Date Time Temp Pulse Resp B/P (MAP) Pulse Ox O2 Delivery O2 Flow Rate FiO2 03/24/17 08:40 98.7 82 20 132/60 (84) 96 03/24/17 08:35 97.5 97 18 176/95 (122) 93 03/24/17 04:00 98.1 95 16 129/69 (89) 92 03/24/17 03:42 16 03/24/17 00:00 97.4 88 18 110/65 (80) 92 03/23/17 22:05 94 Nasal Cannula 2.00 03/23/17 20:00 99.1 93 18 120/68 (85) 92 03/23/17 18:34 96 Nasal Cannula 2.00 03/23/17 15:40 96.4 92 17 139/69 (92) 96 03/23/17 11:40 98.0 88 17 129/76 (93) 92 Exam CONSTITUTIONAL/GENERAL: This is an ill appearing pt TUBES/LINES/DRAINS:PIC upper extremity, Catheter SKIN: No jaundice, rashes, or lesions. No wounds seen anteriorly. Skin temperature appropriate. Not diaphoretic. HEAD: Atraumatic. Normocephalic. EYES: Pupils equal and round and reactive. Extraocular motions intact. No scleral icterus. No injection or drainage. Fundi not examined. ENT: Hearing grossly normal. Nose without bleeding or purulent drainage. Throat without visible erythema, exudates, masses, or lesions. NECK: Trachea midline. Supple, nontender. No palpable thyroid enlargement or nodularity. CARDIOVASCULAR: Regular rate and rhythm without murmurs. No JVD. Peripheral pulses symmetric. Peripheral pulses palpable. RESPIRATORY/CHEST: Symmetric, unlabored respirations. On room air. Clear to auscultation. Breath sounds equal bilaterally. GASTROINTESTINAL: Abdomen slightly firm, diffusely tender, nondistended. A minute palpation due to tenderness, no readily palpable masses. Bowel sounds hypoactive. GENITOURINARY: Without palpable bladder distension. Ortega catheter in place. MUSCULOSKELETAL: Extremities without clubbing, cyanosis, or edema. No joint tenderness or effusion noted. No mottling or clubbing. LYMPHATICS: No palpable cervical or supraclavicular adenopathy. NEUROLOGICAL: Awake and alert. Oriented 3, appropriate. InSight appears good. Motor and sensory grossly within normal limits. Follows commands. Cognitively sharp. Moves all extremities. PSYCHIATRIC: No obvious anxiety/depression. no apparent hallucinations or other psychotic thought process. Diagnostic Tests Laboratory Laboratory Tests Test 03/21/17 16:20 03/22/17 13:04 03/22/17 13:06 03/23/17 06:06 White Blood Count 16.1 TH/MM3 (4.0-11.0) 21.7 TH/MM3 (4.0-11.0) Red Blood Count 3.98 MIL/MM3 (4.00-5.30) 4.07 MIL/MM3 (4.00-5.30) Hemoglobin 11.3 GM/DL (11.6-15.3) 11.6 GM/DL (11.6-15.3) Hematocrit 33.8 % (35.0-46.0) 34.6 % (35.0-46.0) Mean Corpuscular Volume 85.1 FL (80.0-100.0) 85.1 FL (80.0-100.0) Mean Corpuscular Hemoglobin 28.5 PG (27.0-34.0) 28.4 PG (27.0-34.0) Mean Corpuscular Hemoglobin Concent 33.5 % (32.0-36.0) 33.4 % (32.0-36.0) Red Cell Distribution Width 13.4 % (11.6-17.2) 13.6 % (11.6-17.2) Platelet Count 211 TH/MM3 (150-450) 258 TH/MM3 (150-450) Mean Platelet Volume 8.5 FL (7.0-11.0) 8.5 FL (7.0-11.0) Neutrophils (%) (Auto) 87.2 % (16.0-70.0) 86.8 % (16.0-70.0) Lymphocytes (%) (Auto) 4.7 % (9.0-44.0) 5.3 % (9.0-44.0) Monocytes (%) (Auto) 7.1 % (0.0-8.0) 6.8 % (0.0-8.0) Eosinophils (%) (Auto) 0.8 % (0.0-4.0) 0.8 % (0.0-4.0) Basophils (%) (Auto) 0.2 % (0.0-2.0) 0.3 % (0.0-2.0) Neutrophils # (Auto) 14.0 TH/MM3 (1.8-7.7) 18.8 TH/MM3 (1.8-7.7) Lymphocytes # (Auto) 0.8 TH/MM3 (1.0-4.8) 1.2 TH/MM3 (1.0-4.8) Monocytes # (Auto) 1.1 TH/MM3 (0-0.9) 1.5 TH/MM3 (0-0.9) Eosinophils # (Auto) 0.1 TH/MM3 (0-0.4) 0.2 TH/MM3 (0-0.4) Basophils # (Auto) 0.0 TH/MM3 (0-0.2) 0.1 TH/MM3 (0-0.2) CBC Comment DIFF FINAL DIFF FINAL Differential Comment Blood Urea Nitrogen 5 MG/DL (7-18) 4 MG/DL (7-18) Creatinine 0.79 MG/DL (0.50-1.00) 0.57 MG/DL (0.50-1.00) Random Glucose 146 MG/DL (74-106) 102 MG/DL (74-106) Total Protein 5.4 GM/DL (6.4-8.2) 5.9 GM/DL (6.4-8.2) Albumin 1.8 GM/DL (3.4-5.0) 1.8 GM/DL (3.4-5.0) Calcium Level 7.3 MG/DL (8.5-10.1) 7.6 MG/DL (8.5-10.1) Alkaline Phosphatase 167 U/L (45-117) 166 U/L (45-117) Aspartate Amino Transf (AST/SGOT) 13 U/L (15-37) 22 U/L (15-37) Alanine Aminotransferase (ALT/SGPT) 13 U/L (10-53) 15 U/L (10-53) Total Bilirubin 0.4 MG/DL (0.2-1.0) 0.4 MG/DL (0.2-1.0) Sodium Level 131 MEQ/L (136-145) 132 MEQ/L (136-145) Potassium Level 2.7 MEQ/L (3.5-5.1) 3.9 MEQ/L (3.5-5.1) Chloride Level 98 MEQ/L (98-107) 99 MEQ/L (98-107) Carbon Dioxide Level 27.7 MEQ/L (21.0-32.0) 25.2 MEQ/L (21.0-32.0) Anion Gap 5 MEQ/L (5-15) 8 MEQ/L (5-15) Estimat Glomerular Filtration Rate 76 ML/MIN (>89) 110 ML/MIN (>89) Protein Corrected Calcium 8.2 MG/DL (8.5-10.1) Magnesium Level 1.8 MG/DL (1.5-2.5) Hepatitis A IgM Antibody NEGATIVE (NEGATIVE) Hepatitis B Surface Antigen NEGATIVE (NEGATIVE) Hepatitis B Core IgM Antibody NEGATIVE (NEGATIVE) Hepatitis C Antibody NEGATIVE (NEGATIVE) HIV (1&2) Antibody NEGATIVE (NEGATIVE) Result Diagram: 03/22/17 1304 03/22/17 1306 Imaging Last Impressions Chest X-Ray 03/22/17 0000 Signed Impressions: Service Date/Time: Wednesday, March 22, 2017 21:33 - CONCLUSION: Persistent severe emphysematous change in the left upper lung with some compression/atelectasis at the left mid and lower lung. Mateo Harrington MD Abdomen/Pelvis CT 03/18/17 1205 Signed Impressions: Service Date/Time: Saturday, March 18, 2017 13:02 - CONCLUSION: 1. Large heterogeneous pelvic mass is not significantly changed in size. 2. Right ureter is now obstructed distally. Mild hydronephrosis now seen and with associated swelling and delayed nephrogram of the right kidney. Retroperitoneal lymphadenopathy narrowing the 2 right renal arteries may also be contributing to the delayed nephrogram. 3. Metastatic retroperitoneal lymphadenopathy again noted, similar to before. Most of the nodes appear partly necrotic. 4. Trace free fluid now seen in the pelvic cul-de-sac. No perceptible abscess. 5. Subcentimeter hypodensity of the liver is unchanged and most likely a benign cyst. Mateo Costa MD Procedures 03/21/17 cystoscopy, right retrograde, right stent insertion Patient/Family Conference Present at Family Conference: Patient Family Conference Time (mins): 35 Family Conference Location: Bedside Issues Discussed: Met with patient at bedside discussion included: * Palliative care role, purpose, approach * Additional medical, psychosocial, and spiritual history * Patients general health, functional status, and cognitive changes in the months leading up to the current hospitalization * Patient/family understanding of the current medical problems * Patient/family understanding of prognosis * Patients goals of care as best understood from advance directives and/or conversations and/or values * Current medical treatment options and benefits/burdens of those options-- review high risk of additional complications/sequelae from ongoing treatments/ continued opiates etc. review sedation versus pain relief with use of opiate pain medication * Likely scenarios comparing ongoing aggressive care with a transition to comfort measures only--gently/briefly reviewed that if her goals were not to pursue aggressive therapies and primarily goal was pain relief, reduction of symptoms and allowing disease to take natural course and one would pursue that via hospice * CODE STATUSpatient endorses full code * Legal decision maker-patient does not have advance directive or HCS does not wish to complete at this time, her would be Legal decision maker, this is what she would want * Questions answered to the best of my ability * Palliative care contact information provided Patient appears heavily small understanding of her conditions, limited treatment options at this time. Her goals remain aggressive at this time to try to pursue palliative radiation to reduce tumor burden, she understands his this will not be curative. She would like to pursue palliative chemotherapy if that becomes an option. Right now she also wants relief of pain and nausea. All questions answered, palliative contact information provided. I did offer to contact her to provide update, she is in agreement with this. _ Call to number, voicemail left. . 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 x35 yrs. Originally from [place], is here with green card and legal resident. Has lived in [place] for 30+ years Spiritual: No particular islam affiliation, prays on her own. Does not desire air plant engineer support at this time Legal:Patient is currently alert, oriented and able to make her own decisions. She does not have advanced directives or HCS. Per [place] statutes if she became incapacitated her would be legal decision maker. Patient has verbally indicated today that she would want him to be her legal decision maker. Offered assistance with advanced directive, HCS during hospitalization, she does not wish to complete today palliative available to assist if she desires. Ethical issues impacting care: Important Contacts Nicolas Jara [phone] Silvia Davis friend [phone] . Prognosis Patient appears to have advanced malignancy process recent pathology indicative of uterine carcinosarcoma. She has expansive tumor burden which is not amenable to surgical intervention. She has been offered palliative radiation, for tumor burden reduction. Possible may be offered palliative chemotherapy depending on her performance status. She is very high risk for complications, decline related to advanced disease process and current sequelae she is experiencing secondary to pelvic mass. Appropriate for hospice if goals compatible. . Code Status: Full Code Plan * Legal decision maker:Patient is currently alert, oriented and able to make her own decisions. She does not have advanced directives or HCS. Per [place] statutes if she became incapacitated her would be legal decision maker. Patient has verbally indicated today that she would want him to be her legal decision maker. Offered assistance with advanced directive, HCS during hospitalization, she does not wish to complete today palliative available to assist if she desires. * Goals: Met with patient today at bedside. Her goals are maintained pain at a tolerable level, proceed with available palliative treatments including palliative radiation in hopes to reduce tumor burden, possibly may pursue palliative chemotherapy if that becomes an option. For right now she does want to maintain her level of alertness and ability to participate somewhat wants to avoid too much pain medication due to possible sedating side effects. * CODE STATUS: Full code * SYMPTOMS: --Constipation-multifactorial: Large abdominal mass, abdominal imaging+ ileus , no SBO. Recent use of PO opiates for the past 1 week.-Currently on bowel regimen, advised nursing to administer prn Dulcolax per rectum, Reglan has been added by medical attending today, discussed with medical attending addition of Relistor trial as some of this may be compounded by daily opiate use. Relistor added for today, tomorrow. Monitor effectiveness. --Nausea-multifactorial- Large abdominal mass, abdominal imaging+ ileus, no SBO. Patient on antiemetics with refractory nausea likely 2/2 ileus, abdominal mass; discussed with medical attending addition of scheduled Haldol 1mg Q 6 hr PO, monitor for effectiveness in the next day or so. No known cardiovascular issues or prolonged QT interval --Abdominal pain--multifactorial: Large abdominal mass, abdominal imaging+ ileus, no SBO. Currently utilizing Percocet, Dilaudid for breakthrough pain. Patient subjectively endorsing this offers effective relief, also verbalizing goals to maintain alertness and ability to participate, does not want to become too sedated or lethargic. Would not recommend uptitrating currently unless pain does not stay controlled with available regimen. She endorses in between and pain medication due to pain / however after pain medication becomes tolerable /10. --Malnutrition-poor oral intake secondary to abdominal pain, nausea and constipation. + Weight loss, unknown amount. Hopefully oral in take can improve once ileus improves; likely would benefit from nutritional supplement/ ensure. Albumin 1.8. * Palliative care will continue to follow during hospital course as condition evolves, to assist patient/decision-maker with understanding of medical conditions, weighing benefits/burdens of treatment options, for clarification of goals of treatment. Additionally will assist with any symptoms of palliative concern . Time Spent Total Floor Time (mins): 65 >50% Counseling/Coord of Care: Yes ( d/w RN, medical attending, ID) Thank you for the opportunity to participate in the care of Ms. Jara. Attestation To help prompt me to consider important information that might be impacting today's encounter and assessment, information from prior notes written by myself or my colleagues may have been "brought forward" into today's note. My signature on this note, however, is an attestation that I personally performed the exam, history, and/or decision-making noted today, and, unless otherwise indicated, the interactions with patient, family, and staff as well as the review of records all occurred today. I also attest that the listed assessment and stated plan reflect my best clinical judgment today based on the combination of historical information, prior notes, and today's exam/ interactions. When time spent is documented, it refers only to time spent today by the signer, or if indicated, combined time spent today by collaborating physician/nurse practitioner. Kaylah Alvarado Mar 24, 2017 11:35
--- NOTE | 2017-03-24 12:34 | RADRPT ---
EXAM DATE/TIME: 03/24/2017 12:07 [place] COMPARISON: No previous studies available for comparison. INDICATIONS : Abdomen pain and distention. MEDICAL HISTORY : None. SURGICAL HISTORY : None. ENCOUNTER: Initial ACUITY: 4 - 6 days PAIN SCORE: 10/10 LOCATION: Bilateral Abdomen FINDINGS: Examination of the abdomen demonstrates gaseous distention of the colon most consistent with ileus .T here are no findings of small bowel obstruction. No free air is identified. No organomegaly is eviden t. A double-J stent is present on the right in the expected position. CONCLUSION: Mild colonic ileus. Harish Diaz MD on March 24, 2017 at 12:32 Board Certified Radiologist. This report was verified electronically.
--- NOTE | 2017-03-24 13:02 | HHI.IDPN ---
Subjective Subjective Remarks Ms. Jara is a 57-year-old female who was recently diagnosed with uterine carcinosarcoma approximately 4 days back she had a cystoscopy, proctoscopy and endocervical/endometrial mass biopsy. Patient has a history of chronic vaginal bleeding, weight loss, back pain. Proctosigmoidoscopy showed extrinsic compression of the bladder. Patient returned to the emergency department because of persistent nausea vomiting and constant sharp severe generalized abdominal as well as back pain. This was associated with burning upon urination, weakness, dizziness and feeling warm. Repeat CT of the abdomen and pelvis showed pelvic mass not significant change from days prior but the right ureter showed mild hydronephrosis and trace fluid in the cul-de-sac. Patient was initially at [facility] and was transferred to the main hospital. Currently she is on hospitalist service. She underwent a sepsis workup blood cultures on admission now are positive for Escherichia coli, Verigene with no CTX-M marker. Urine cultures are positive for GNR. ID consulted for mment of complicated UTI secondary to obstruction from large uterine mass. And some of my evaluation patient is currently admitted on 7 E. floor. She is maintaining her vital signs and appears to be clinically stable. She reports to me that she is going to have a stent placement. Medical records are reviewed and appears that Dr. Clifton as well as Dr. Stephens have seen the patient and there is a plan for stent placement tomorrow. Also it appears that patient has been offered palliative radiation therapy. Overnight events reviewed. Appears uncomfortable. Nauseous. Abdominal pain and discomfort increased. Constipated no BM since admission and on opioids. No fevers. No rash No diarrhea Antibiotics Levaquin IV Lines Line sites with no e.o infection. Past Medical History reviewed Allergies: Uncoded Allergies: ADHESIVES (Allergy, Unknown, rash, 03/14/17) Objective . Vital Signs Date Time Temp Pulse Resp B/P (MAP) Pulse Ox O2 Delivery O2 Flow Rate FiO2 03/24/17 10:30 96 03/24/17 08:40 98.7 82 20 132/60 (84) 96 03/24/17 08:35 97.5 97 18 176/95 (122) 93 03/24/17 04:00 98.1 95 16 129/69 (89) 92 03/24/17 03:42 16 03/24/17 00:00 97.4 88 18 110/65 (80) 92 03/23/17 22:05 94 Nasal Cannula 2.00 03/23/17 20:00 99.1 93 18 120/68 (85) 92 03/23/17 18:34 96 Nasal Cannula 2.00 03/23/17 15:40 96.4 92 17 139/69 (92) 96 . Laboratory Tests Test 03/22/17 13:04 White Blood Count 21.7 TH/MM3 Red Blood Count 4.07 MIL/MM3 Hemoglobin 11.6 GM/DL Hematocrit 34.6 % Mean Corpuscular Volume 85.1 FL Mean Corpuscular Hemoglobin 28.4 PG Mean Corpuscular Hemoglobin Concent 33.4 % Red Cell Distribution Width 13.6 % Platelet Count 258 TH/MM3 Mean Platelet Volume 8.5 FL Neutrophils (%) (Auto) 86.8 % Lymphocytes (%) (Auto) 5.3 % Monocytes (%) (Auto) 6.8 % Eosinophils (%) (Auto) 0.8 % Basophils (%) (Auto) 0.3 % Neutrophils # (Auto) 18.8 TH/MM3 Lymphocytes # (Auto) 1.2 TH/MM3 Monocytes # (Auto) 1.5 TH/MM3 Eosinophils # (Auto) 0.2 TH/MM3 Basophils # (Auto) 0.1 TH/MM3 CBC Comment DIFF FINAL Differential Comment Laboratory Tests Test 03/22/17 13:06 Blood Urea Nitrogen 4 MG/DL Creatinine 0.57 MG/DL Random Glucose 102 MG/DL Total Protein 5.9 GM/DL Albumin 1.8 GM/DL Calcium Level 7.6 MG/DL Alkaline Phosphatase 166 U/L Aspartate Amino Transf (AST/SGOT) 22 U/L Alanine Aminotransferase (ALT/SGPT) 15 U/L Total Bilirubin 0.4 MG/DL Sodium Level 132 MEQ/L Potassium Level 3.9 MEQ/L Chloride Level 99 MEQ/L Carbon Dioxide Level 25.2 MEQ/L Anion Gap 8 MEQ/L Estimat Glomerular Filtration Rate 110 ML/MIN Magnesium Level 1.8 MG/DL Imaging Last Impressions Abdomen/Pelvis CT 03/18/17 1202 Signed Impressions: Service Date/Time: Saturday, March 18, 2017 13:02 - CONCLUSION: 1. Large heterogeneous pelvic mass is not significantly changed in size. 2. Right ureter is now obstructed distally. Mild hydronephrosis now seen and with associated swelling and delayed nephrogram of the right kidney. Retroperitoneal lymphadenopathy narrowing the 2 right renal arteries may also be contributing to the delayed nephrogram. 3. Metastatic retroperitoneal lymphadenopathy again noted, similar to before. Most of the nodes appear partly necrotic. 4. Trace free fluid now seen in the pelvic cul-de-sac. No perceptible abscess. 5. Subcentimeter hypodensity of the liver is unchanged and most likely a benign cyst. Mateo Costa MD Chest X-Ray 03/18/17 1155 Signed Impressions: Service Date/Time: Monday, March 18, 2017 12:10 - CONCLUSION: Emphysema. No evidence of acute cardiopulmonary disease. Mateo Costa MD Physical Exam GENERAL:Thin built patient, in no apparent distress. SKIN: No rashes, ecchymoses or lesions. Cool and dry. HEAD: Atraumatic. Normocephalic. No temporal or scalp tenderness. EYES: Pupils equal round and reactive. Extraocular motions intact. No scleral icterus. No injection or drainage. ENT: Nose without bleeding, purulent drainage or septal hematoma. Throat without erythema, tonsillar hypertrophy or exudate. Uvula midline. Airway patent. NECK: Trachea midline. No JVD or lymphadenopathy. Supple, nontender, no meningeal signs. CARDIOVASCULAR: Regular rate and rhythm without murmurs, gallops, or rubs. RESPIRATORY: Clear to auscultation. Breath sounds equal bilaterally. No wheezes , rales, or rhonchi. GASTROINTESTINAL: Abdomen soft, nondistended. Right CVA tenderness. Diffuse abdominal tenderness. Bowel sounds hyperactive. Passing gas. MUSCULOSKELETAL: Extremities without clubbing, cyanosis, or edema. No joint tenderness, effusion, or edema noted. No calf tenderness. Negative Homans sign bilaterally. NEUROLOGICAL: Awake and alert. Grossly non focal Psych: cooperative IV line sites with no e.o infection. Assessment & Plan Remarks Sepsis present on admission. Escherichia coli gram-negative nino bacteremia likely secondary to UTI Complicated UTI with obstruction secondary to large uterine mass. Uterine cancer with retroperitoneal adenopathy likely advanced stage. Has been offered palliative radiation therapy. Persistent fevers: ? source control not achieved yet. Hopefully stent placement will help relieve the infected urine in hydronephrotic kidney. Hypoalbuminemia: nutritional, cancer. Recs Continue Levaquin IV for now (pt has ileus will keep IV for now) X-ray abdomen: rule out constipation related ileus. D/w Palliative care: They will address goals of therapy in addition to pain meds. Follow cultures Follow clinically. D.w pt plan for the day Case Management note: If repeat blood cultures are negative may not need IV antibiotics. Xray with ileus no SBO. If symptoms persist consider CT imaging. Also notify about changes. D.w . to cover for me this weekend. Jenny Jackson MD Mar 24, 2017 13:02
[2017-03-24 15:00] LABS: AUTOMATED NEUTROPHIL # 19.2 TH/MM3 (1.8-7.7); BASOPHIL # 0.1 TH/MM3 (0-0.2); BASOPHIL % 0.2 % (0.0-2.0); HEMATOCRIT 36.2 % (35.0-46.0); HEMO FLAGS DIFF FINAL; LYMPH % 5.7 % (9.0-44.0); LYMPHOCYTE # 1.2 TH/MM3 (1.0-4.8); MEAN CELL VOLUME 85.1 FL (80.0-100.0); MEAN CORPUSCULAR HEMOGLOBIN 27.5 PG (27.0-34.0); MEAN CORPUSCULAR HGB CONC 32.3 % (32.0-36.0); MONO % 4.8 % (0.0-8.0); NEUT % 89.3 % (16.0-70.0); PLATELET COUNT 449 TH/MM3 (150-450); RED BLOOD COUNT 4.26 MIL/MM3 (4.00-5.30); RED CELL DISTRIBUTION WIDTH 13.9 % (11.6-17.2); WHITE BLOOD COUNT 21.5 TH/MM3 (4.0-11.0)
[2017-03-24 15:14] LABS: ALT (GPT) 11 U/L (10-53); ANION GAP 11 MEQ/L (5-15); AST (GOT) 15 U/L (15-37); BICARBONATE 25.2 MEQ/L (21.0-32.0); BLOOD UREA NITROGEN 5 MG/DL (7-18); CHLORIDE 100 MEQ/L (98-107); GLOMERULAR FILTRATION RATE 108 ML/MIN (>89); POTASSIUM 3.1 MEQ/L (3.5-5.1); SODIUM (NA) 136 MEQ/L (136-145)
[2017-03-24 15:15] LABS: ALKALINE PHOSPHATASE 159 U/L (45-117); TOTAL BILIRUBIN ADULT 0.4 MG/DL (0.2-1.0)
[2017-03-24] MEDS: PANTOPRAZOLE SOD 40 MG DELAYED RELEASE TAB PO SCH (17:08)
[2017-03-24] MEDS: HALOPERIDOL 1 MG TAB PO SCH ×2 (17:09→23:32)
[2017-03-24] MEDS: LEVOFLOXACIN 750 MG PREMIX INJ 150 ML IV SCH (17:09)
--- NOTE | 2017-03-24 17:41 | HHI.PR ---
Addendum to Inpatient Note Addendum Reason: Additional Documentation Additional Information I re-evaluated the patient. she continues to feel nauseous and dry heaving. Pain is about the same. States the gingerale is to "acidic" for her. She is willing to try some 7-up watered down. discussed the case w Dr. Stephens. He doesn't feel she needs further imaging as this time, he feels pt's symptoms are due to abdominal mass and recommends adjusting pain meds. I will go ahead an increase dose of IV dilaudid to 1mg iv q3hrs prn breakthrough pain. abdominal exam unchanged. she is soft but does have some voluntary guarding and she does have some dry heaves while I was there. Pt received first dose of haldol about 30mins ago. will give one time dose IV dilaudid now Karen Acuna MD Mar 24, 2017 17:41
[2017-03-24] MEDS ORDERED: HYDROmorphone HCL PF 1 MG/ML VIAL IV PUSH ONE (17:45)
[2017-03-24] MEDS: METHYLNALTREXONE BROMIDE 12 MG/0.6 ML VIAL SQ SCH (18:24)
[2017-03-24] MEDS: SODIUM CHLORIDE 0.9% FLUSH 10 ML FLUSH IV FLUSH PRN (23:33)
[2017-03-25] VITALS (7 sets, daily range): BP systolic 131–165; BP diastolic 64–83; PULSE 83–97; RESP 12–18; TEMP 97.7–98.8; O2SAT 92–96
[2017-03-25] MEDS: HYDROmorphone HCL PF 1 MG/ML VIAL IV PRN ×2 (01:42→04:53)
[2017-03-25] MEDS: ONDANSETRON HCL 4 MG/2 ML VIAL IVP PRN (01:45)
[2017-03-25] MEDS: HALOPERIDOL 1 MG TAB PO SCH ×3 (04:53→18:18)
[2017-03-25] MEDS: METHYLNALTREXONE BROMIDE 12 MG/0.6 ML VIAL SQ SCH (08:09)
[2017-03-25] MEDS: oxyCODONE/ACETAMINOPHEN 10 MG/325 MG TAB PO PRN ×4 (08:09→20:34)
[2017-03-25] MEDS: DOCUSATE SODIUM 50 MG/SENNA 8.6 MG TAB PO SCH ×2 (08:09→20:34)
[2017-03-25 08:45] LABS: BICARBONATE 25.5 MEQ/L (21.0-32.0)
[2017-03-25] MEDS: SODIUM CHLORIDE 0.9% FLUSH 10 ML FLUSH IV FLUSH SCH ×2 (09:00→20:35)
--- NOTE | 2017-03-25 09:12 | HHI.PR ---
Subjective Remarks Pain is better controlled this morning. states it is now a 7/10. still a bit nauseous but no longer dry heaving. able to drink 3 sips of ensure. no CP or worsening SOB Pt had two loose BMs Objective Vitals Vital Signs Date Time Temp Pulse Resp B/P (MAP) Pulse Ox O2 Delivery O2 Flow Rate FiO2 03/25/17 04:00 159/77 (104) 03/25/17 04:00 98.3 97 18 96 03/25/17 00:00 98.8 94 16 155/74 (101) 94 03/24/17 20:00 98.4 95 17 165/77 (106) 95 03/24/17 16:45 98.3 85 17 90 03/24/17 12:35 98.3 85 17 147/74 (98) 90 03/24/17 10:30 96 I/O 03/24/17 03/24/17 03/24/17 03/25/17 03/25/17 03/25/17 06:59 14:59 22:59 06:59 14:59 22:59 Intake Total 360 ml 520 ml 120 ml Output Total 400 ml 975 ml 250 ml Balance -40 ml -455 ml -130 ml Intake Oral 360 ml 520 ml 120 ml Output Urine Total 400 ml 975 ml 250 ml # Bowel Movements 2 # Sanitary Pads 2 Pads Result Diagram: 03/24/17 1358 03/25/17 0703 Imaging Last Impressions Abdomen X-Ray 03/24/17 0000 Signed Impressions: Service Date/Time: Friday, March 24, 2017 12:07 - CONCLUSION: Mild colonic ileus. Harish Diaz MD Chest X-Ray 03/22/17 0000 Signed Impressions: Service Date/Time: Wednesday, March 22, 2017 21:33 - CONCLUSION: Persistent severe emphysematous change in the left upper lung with some compression/atelectasis at the left mid and lower lung. Mateo Harrington MD Abdomen/Pelvis CT 03/18/17 1205 Signed Impressions: Service Date/Time: Saturday, March 18, 2017 13:02 - CONCLUSION: 1. Large heterogeneous pelvic mass is not significantly changed in size. 2. Right ureter is now obstructed distally. Mild hydronephrosis now seen and with associated swelling and delayed nephrogram of the right kidney. Retroperitoneal lymphadenopathy narrowing the 2 right renal arteries may also be contributing to the delayed nephrogram. 3. Metastatic retroperitoneal lymphadenopathy again noted, similar to before. Most of the nodes appear partly necrotic. 4. Trace free fluid now seen in the pelvic cul-de-sac. No perceptible abscess. 5. Subcentimeter hypodensity of the liver is unchanged and most likely a benign cyst. Mateo Costa MD Objective Remarks GENERAL: Alert, oriented 3, appears tired but seems more comfortable. HEAD: Normocephalic. EYES: EOMI NECK: trachea midline. CARDIOVASCULAR: Regular rate and rhythm without murmurs RESPIRATORY: Breath sounds equal bilaterally. no wheezing or use of accessory muscles. GASTROINTESTINAL: Abdomen soft, tender to light palpation w some voluntary guarding. MUSCULOSKELETAL: moves extremities Procedures 03/21/2017 Cystoscopy, right retrograde pyelogram and mcfp right ureteral stent insertion A/P Problem List: (1) Post-menopausal bleeding ICD Code: N95.0 - Postmenopausal bleeding Status: Acute (2) Pelvic mass in female ICD Code: R19.00 - Pelvic mass in female Status: Acute Assessment and Plan 57-year-old female admitted secondary to UTI and sepsis. s/p right stent placement for obstructive uropathy. Escherichia coli UTI Escherichia coli bacteremia Continue Levaquin IV per infectious disease Urine and blood cultures are positive for Escherichia coli. Leukocytosis still present. Appreciate input from ID. Urinary obstruction Moderate right Hydronephrosis Uterine carcinosarcoma Vaginal bleeding Status post cystoscopy, long-term right ureteral stent insertion. Continue radiation treatments to decrease tumor burden. Palliative chemotherapy after radiation will be considered by gynecological oncology. Not a candidate for surgery due to extensive tumor burden. IV Pain meds have been adjusted. Palliative care also assisting, has started pt on hadol to help w n/v. Also started pt on methylnaltrexone. This seems to help patient LATOYA Resolved Follow renal function Hyponatremia Hypokalemia Nausea/vomiting-improving. Palliative care also assisting, has started pt on hadol to help w n/v. Also started pt on methylnaltrexone. This seems to be helping patient May have been secondary to nausea and vomiting Follow renal function stable at sodium is around 131-132. hypokalemia resolved. Constipation patient on various laxatives. Discharge Planning Radiation therapy will be started. Pain seems to be better controlled today. Continue to adjust pain meds as needed. appreciate assistance from all consultants Armand,Karen MD Mar 25, 2017 09:12
[2017-03-25] MEDS: POTASSIUM CHLOR 20 MEQ PREMIX 100 ML IV SCH ×2 (11:15→11:35)
[2017-03-25] MEDS ORDERED: POTASSIUM CHLOR 20 MEQ ONE (16:00)
[2017-03-25] MEDS: PANTOPRAZOLE SOD 40 MG DELAYED RELEASE TAB PO SCH (16:05)
[2017-03-25] MEDS: LEVOFLOXACIN 750 MG PREMIX INJ 150 ML IV SCH (16:06)
[2017-03-25] MEDS: POTASSIUM CHLORIDE INJ 10 MEQ in DEXT 5%-NACL 0.9% 1000 ML INJ 1,000 ML IV SCH (20:35)
[2017-03-26] VITALS: BP 133/76; PULSE 96; RESP 16; TEMP 99.2; O2SAT 92
[2017-03-26] MEDS: HALOPERIDOL 1 MG TAB PO SCH ×5 (00:03→22:59)
[2017-03-26] MEDS: oxyCODONE/ACETAMINOPHEN 10 MG/325 MG TAB PO PRN ×6 (00:03→20:46)
[2017-03-26 04:00] VITALS: BP 151/76; PULSE 86; RESP 16; TEMP 98.3; O2SAT 92
[2017-03-26] MEDS: HYDROmorphone HCL PF 1 MG/ML VIAL IV PRN ×6 (04:23→22:48)
[2017-03-26] MEDS: LACTULOSE SYRUP 20 GM/30 ML CUP PO PRN (05:07)
[2017-03-26 08:00] VITALS: BP 152/77; PULSE 88; RESP 20; TEMP 98.3; O2SAT 95
[2017-03-26] MEDS: DOCUSATE SODIUM 50 MG/SENNA 8.6 MG TAB PO SCH ×2 (08:25→20:45)
[2017-03-26] MEDS: SODIUM CHLORIDE 0.9% FLUSH 10 ML FLUSH IV FLUSH SCH ×2 (08:25→20:48)
[2017-03-26] MEDS: POTASSIUM CHLORIDE INJ 10 MEQ in DEXT 5%-NACL 0.9% 1000 ML INJ 1,000 ML IV SCH ×2 (08:26→20:47)
[2017-03-26 08:42] LABS: AUTOMATED NEUTROPHIL # 16.2 TH/MM3 (1.8-7.7); BASOPHIL % 0.2 % (0.0-2.0); EOSINOPHIL # 0.1 TH/MM3 (0-0.4); EOSINOPHIL % 0.4 % (0.0-4.0); HEMATOCRIT 34.9 % (35.0-46.0); HEMO FLAGS DIFF FINAL; LYMPH % 7.8 % (9.0-44.0); LYMPHOCYTE # 1.5 TH/MM3 (1.0-4.8); MEAN CORPUSCULAR HEMOGLOBIN 28.6 PG (27.0-34.0); MEAN CORPUSCULAR HGB CONC 33.7 % (32.0-36.0); MONO % 7.5 % (0.0-8.0); NEUT % 84.1 % (16.0-70.0); PLATELET COUNT 509 TH/MM3 (150-450); RED BLOOD COUNT 4.11 MIL/MM3 (4.00-5.30); WHITE BLOOD COUNT 19.2 TH/MM3 (4.0-11.0)
[2017-03-26 08:50] LABS: BICARBONATE 24.8 MEQ/L (21.0-32.0); MAGNESIUM 1.9 MG/DL (1.5-2.5); POTASSIUM 3.3 MEQ/L (3.5-5.1)
--- NOTE | 2017-03-26 08:56 | HHI.PR ---
Subjective Remarks Pt feels a lot better this morning. Denies any CP/SOB/ nausea and vomiting have resolved. She is now able to tolerated a diet, eats in small quantities. Abdominal pain is still present but less intense. No BM today Hopeful to start radiation soon. she is pleased w her progress Objective Vitals Vital Signs Date Time Temp Pulse Resp B/P (MAP) Pulse Ox O2 Delivery O2 Flow Rate FiO2 03/26/17 04:00 98.3 86 16 151/76 (101) 92 03/26/17 00:00 99.2 96 16 133/76 (95) 92 03/25/17 20:00 98.3 87 16 164/83 (110) 94 03/25/17 16:00 98.1 93 14 151/81 (104) 94 03/25/17 12:00 98.0 83 12 131/64 (86) 92 I/O 03/25/17 03/25/17 03/25/17 03/26/17 03/26/17 03/26/17 06:59 14:59 22:59 06:59 14:59 22:59 Intake Total 120 ml 100 ml 240 ml 120 ml Output Total 250 ml 500 ml 400 ml 400 ml Balance -130 ml -400 ml -160 ml -280 ml Intake Oral 120 ml 100 ml 240 ml 120 ml Output Urine Total 250 ml 500 ml 400 ml 400 ml # Bowel Movements 1 Result Diagram: 03/26/17 0656 03/26/17 0656 Imaging Last Impressions Abdomen X-Ray 03/24/17 0000 Signed Impressions: Service Date/Time: Friday, March 24, 2017 12:07 - CONCLUSION: Mild colonic ileus. Harish Diaz MD Chest X-Ray 03/22/17 0000 Signed Impressions: Service Date/Time: Wednesday, March 22, 2017 21:33 - CONCLUSION: Persistent severe emphysematous change in the left upper lung with some compression/atelectasis at the left mid and lower lung. Mateo Harrington MD Abdomen/Pelvis CT 03/18/17 1205 Signed Impressions: Service Date/Time: Saturday, March 18, 2017 13:02 - CONCLUSION: 1. Large heterogeneous pelvic mass is not significantly changed in size. 2. Right ureter is now obstructed distally. Mild hydronephrosis now seen and with associated swelling and delayed nephrogram of the right kidney. Retroperitoneal lymphadenopathy narrowing the 2 right renal arteries may also be contributing to the delayed nephrogram. 3. Metastatic retroperitoneal lymphadenopathy again noted, similar to before. Most of the nodes appear partly necrotic. 4. Trace free fluid now seen in the pelvic cul-de-sac. No perceptible abscess. 5. Subcentimeter hypodensity of the liver is unchanged and most likely a benign cyst. Mateo Costa MD Objective Remarks GENERAL: Alert, oriented 3, appears more comfortable today HEAD: Normocephalic. EYES: EOMI NECK: trachea midline. CARDIOVASCULAR: Regular rate and rhythm without murmurs RESPIRATORY: Breath sounds equal bilaterally. no wheezing or use of accessory muscles. GASTROINTESTINAL: Abdomen soft, tender to light palpation w some voluntary guarding. MUSCULOSKELETAL: moves extremities Procedures 03/21/2017 Cystoscopy, right retrograde pyelogram and alf right ureteral stent insertion A/P Problem List: (1) Post-menopausal bleeding ICD Code: N95.0 - Postmenopausal bleeding Status: Acute (2) Pelvic mass in female ICD Code: R19.00 - Pelvic mass in female Status: Acute Assessment and Plan 57-year-old female admitted secondary to UTI and sepsis. s/p right stent placement for obstructive uropathy. Escherichia coli UTI Escherichia coli bacteremia Continue Levaquin IV per infectious disease Urine and blood cultures are positive for Escherichia coli. Leukocytosis still present. Appreciate input from ID. Urinary obstruction Moderate right Hydronephrosis Uterine carcinosarcoma Vaginal bleeding Status post cystoscopy, long-term right ureteral stent insertion. Radiation treatments to decrease tumor burden. Palliative chemotherapy after radiation will be considered by gynecological oncology. Not a candidate for surgery due to extensive tumor burden. IV Pain meds have been adjusted. Palliative care also assisting, on hadol to help w n/v. on methylnaltrexone. This seems to help patient LATOYA Resolved Follow renal function Hyponatremia Hypokalemia Nausea/vomiting-much improved. Follow renal function stable at sodium is around 131-134. hypokalemia resolved. Constipation patient on various laxatives. Discharge Planning Radiation therapy will be started. Pain seems to be better controlled today. Continue to adjust pain meds as needed. appreciate assistance from all consultants Karen Acuna MD Mar 26, 2017 08:56
[2017-03-26 12:00] VITALS: BP 175/84; PULSE 101; RESP 14; TEMP 98.8; O2SAT 95
[2017-03-26 16:00] VITALS: BP 149/61; PULSE 89; RESP 14; TEMP 98.3; O2SAT 95
[2017-03-26] MEDS: PANTOPRAZOLE SOD 40 MG DELAYED RELEASE TAB PO SCH (17:07)
[2017-03-26] MEDS: LEVOFLOXACIN 750 MG PREMIX INJ 150 ML IV SCH (17:08)
[2017-03-26 20:25] VITALS: BP 146/86; PULSE 93; RESP 17; TEMP 97.9; O2SAT 94
[2017-03-27] VITALS (7 sets, daily range): BP systolic 146–181; BP diastolic 81–100; PULSE 90–102; RESP 16–17; TEMP 96.1–100.6; O2SAT 92–96
[2017-03-27] MEDS: HYDROmorphone HCL PF 1 MG/ML VIAL IV PRN ×5 (03:26→20:38)
[2017-03-27] MEDS: HALOPERIDOL 1 MG TAB PO SCH ×3 (04:30→18:03)
[2017-03-27] MEDS: oxyCODONE/ACETAMINOPHEN 10 MG/325 MG TAB PO PRN ×4 (04:30→22:17)
[2017-03-27 06:58] LABS: AUTOMATED NEUTROPHIL # 19.4 TH/MM3 (1.8-7.7); BASOPHIL # 0.1 TH/MM3 (0-0.2); BASOPHIL % 0.5 % (0.0-2.0); EOSINOPHIL # 0.1 TH/MM3 (0-0.4); EOSINOPHIL % 0.3 % (0.0-4.0); HEMATOCRIT 33.3 % (35.0-46.0); HEMO FLAGS DIFF FINAL; LYMPH % 5.5 % (9.0-44.0); LYMPHOCYTE # 1.2 TH/MM3 (1.0-4.8); MEAN CELL VOLUME 84.3 FL (80.0-100.0); MEAN CORPUSCULAR HEMOGLOBIN 28.5 PG (27.0-34.0); MEAN CORPUSCULAR HGB CONC 33.8 % (32.0-36.0); MONO % 6.3 % (0.0-8.0); NEUT % 87.4 % (16.0-70.0); PLATELET COUNT 533 TH/MM3 (150-450); RED BLOOD COUNT 3.95 MIL/MM3 (4.00-5.30); RED CELL DISTRIBUTION WIDTH 13.5 % (11.6-17.2); WHITE BLOOD COUNT 22.2 TH/MM3 (4.0-11.0)
[2017-03-27 07:14] LABS: BICARBONATE 25.2 MEQ/L (21.0-32.0); POTASSIUM 3.3 MEQ/L (3.5-5.1)
[2017-03-27] MEDS: SODIUM CHLORIDE 0.9% FLUSH 10 ML FLUSH IV FLUSH SCH ×2 (07:50→20:43)
[2017-03-27] MEDS: DOCUSATE SODIUM 50 MG/SENNA 8.6 MG TAB PO SCH ×2 (07:50→21:33)
--- NOTE | 2017-03-27 08:37 | HHI.PR ---
Subjective Remarks Pt states that she is not feeling as good as yesterday. 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 No nausea or vomiting, but abdominal pain is a 10 but just took some medication. She has ordered breakfast and is hopeful she is able to eat it. Objective Vitals Vital Signs Date Time Temp Pulse Resp B/P (MAP) Pulse Ox O2 Delivery O2 Flow Rate FiO2 03/27/17 07:55 98.7 90 16 153/100 (117) 96 03/27/17 04:35 100.6 102 17 167/81 (109) 92 03/27/17 00:30 99.1 101 16 181/83 (115) 95 03/26/17 20:25 97.9 93 17 146/86 (106) 94 03/26/17 16:00 98.3 89 14 149/61 (90) 95 03/26/17 12:00 98.8 101 14 175/84 (114) 95 I/O 03/26/17 03/26/17 03/26/17 03/27/17 03/27/17 03/27/17 07:00 15:00 23:00 07:00 15:00 23:00 Intake Total 120 ml 340 ml 240 ml 2500 ml Output Total 400 ml 350 ml 850 ml 500 ml Balance -280 ml -10 ml -610 ml 2000 ml Intake Oral 120 ml 340 ml 240 ml IV Total 2500 ml Output Urine Total 400 ml 350 ml 850 ml 500 ml # Bowel Movements 0 0 Result Diagram: 03/27/1724 03/27/17 0624 Objective Remarks GENERAL: Alert, oriented 3, appears more comfortable today HEAD: Normocephalic. EYES: EOMI NECK: trachea midline. CARDIOVASCULAR: mildly tachycardic without murmurs RESPIRATORY: Breath sounds equal bilaterally. no wheezing or use of accessory muscles. GASTROINTESTINAL: Abdomen soft, tender to light palpation w some voluntary guarding. MUSCULOSKELETAL: moves extremities, some edema noted Procedures 03/21/2017 Cystoscopy, right retrograde pyelogram and halfway right ureteral stent insertion A/P Problem List: (1) Post-menopausal bleeding ICD Code: N95.0 - Postmenopausal bleeding Status: Acute (2) Pelvic mass in female ICD Code: R19.00 - Pelvic mass in female Status: Acute Assessment and Plan 57-year-old female admitted secondary to UTI and sepsis. s/p right stent placement for obstructive uropathy. Escherichia coli UTI Escherichia coli bacteremia Continue Levaquin IV per infectious disease Urine and blood cultures are positive for Escherichia coli. Leukocytosis still present. Appreciate input from ID. Pt had a Tmax of 100.6. WBC this morning 22.2 I will repeat blood cultures now. Urinary obstruction Moderate right Hydronephrosis Uterine carcinosarcoma Vaginal bleeding Status post cystoscopy, long-term right ureteral stent insertion. Radiation treatments to decrease tumor burden. Palliative chemotherapy after radiation will be considered by gynecological oncology. Not a candidate for surgery due to extensive tumor burden. IV Pain meds have been adjusted. Palliative care also assisting, on hadol to help w n/v. on methylnaltrexone. This seems to help patient LATOYA Resolved Follow renal function Hyponatremia Hypokalemia Nausea/vomiting-much improved. Follow renal function stable at sodium is around 131-134. hypokalemia resolved. Constipation patient on various laxatives. Discharge Planning Radiation therapy will be started. nausea and vomiting has resolved but pain still present. Continue pain management. Pt had a fever this morning. Blood cx ordered. appreciate assistance from all consultants Karen Acuna MD Mar 27, 2017 08:37
[2017-03-27] MEDS: LEVOFLOXACIN 750 MG PREMIX INJ 150 ML IV SCH (16:32)
[2017-03-27] MEDS: PANTOPRAZOLE SOD 40 MG DELAYED RELEASE TAB PO SCH (16:32)
[2017-03-27] MEDS ORDERED: DIATRIZOATE MEGLUM/DIATRIZOATE SOD 9 ML CUP PO ONE (17:30)
--- NOTE | 2017-03-27 17:31 | HHI.IDPN ---
Subjective Subjective Remarks Ms. Jara is a 57-year-old female who was recently diagnosed with uterine carcinosarcoma approximately 4 days back she had a cystoscopy, proctoscopy and endocervical/endometrial mass biopsy. Patient has a history of chronic vaginal bleeding, weight loss, back pain. Proctosigmoidoscopy showed extrinsic compression of the bladder. Patient returned to the emergency department because of persistent nausea vomiting and constant sharp severe generalized abdominal as well as back pain. This was associated with burning upon urination, weakness, dizziness and feeling warm. Repeat CT of the abdomen and pelvis showed pelvic mass not significant change from days prior but the right ureter showed mild hydronephrosis and trace fluid in the cul-de-sac. Patient was initially at [facility] and was transferred to the main hospital. Currently she is on hospitalist service. She underwent a sepsis workup blood cultures on admission now are positive for Escherichia coli, Verigene with no CTX-M marker. Urine cultures are positive for GNR. ID consulted for mment of complicated UTI secondary to obstruction from large uterine mass. And some of my evaluation patient is currently admitted on 7 E. floor. She is maintaining her vital signs and appears to be clinically stable. She reports to me that she is going to have a stent placement. Medical records are reviewed and appears that Dr. Clifton as well as Dr. Stephens have seen the patient and there is a plan for stent placement tomorrow. Also it appears that patient has been offered palliative radiation therapy. Overnight events reviewed. Appears uncomfortable due to abdominal pain. Nauseous. Abdominal pain and discomfort increased. Had 3 BMs today formed. On stool softener per Primary team. No fevers. No rash No diarrhea Antibiotics Levaquin IV Lines Line sites with no e.o infection. Past Medical History reviewed Allergies: Uncoded Allergies: ADHESIVES (Allergy, Unknown, rash, 03/14/17) Objective . Vital Signs Date Time Temp Pulse Resp B/P (MAP) Pulse Ox O2 Delivery O2 Flow Rate FiO2 03/27/17 16:00 99.6 102 16 164/92 (116) 95 03/27/17 12:00 97.6 94 16 146/82 (103) 94 03/27/17 07:55 98.7 90 16 153/100 (117) 96 03/27/17 04:35 100.6 102 17 167/81 (109) 92 03/27/17 00:30 99.1 101 16 181/83 (115) 95 03/26/17 20:25 97.9 93 17 146/86 (106) 94 03/27/17 03/27/17 03/28/17 15:00 23:00 07:00 Intake Total 3621 ml Output Total 1350 ml Balance 2271 ml Intake Oral 480 ml IV Total 3141 ml Output Urine Total 1350 ml # Bowel Movements 2 . Laboratory Tests Test 03/26/17 06:56 03/27/17 06:24 White Blood Count 19.2 TH/MM3 22.2 TH/MM3 Red Blood Count 4.11 MIL/MM3 3.95 MIL/MM3 Hemoglobin 11.8 GM/DL 11.2 GM/DL Hematocrit 34.9 % 33.3 % Mean Corpuscular Volume 85.0 FL 84.3 FL Mean Corpuscular Hemoglobin 28.6 PG 28.5 PG Mean Corpuscular Hemoglobin Concent 33.7 % 33.8 % Red Cell Distribution Width 14.0 % 13.5 % Platelet Count 509 TH/MM3 533 TH/MM3 Mean Platelet Volume 7.5 FL 7.2 FL Neutrophils (%) (Auto) 84.1 % 87.4 % Lymphocytes (%) (Auto) 7.8 % 5.5 % Monocytes (%) (Auto) 7.5 % 6.3 % Eosinophils (%) (Auto) 0.4 % 0.3 % Basophils (%) (Auto) 0.2 % 0.5 % Neutrophils # (Auto) 16.2 TH/MM3 19.4 TH/MM3 Lymphocytes # (Auto) 1.5 TH/MM3 1.2 TH/MM3 Monocytes # (Auto) 1.4 TH/MM3 1.4 TH/MM3 Eosinophils # (Auto) 0.1 TH/MM3 0.1 TH/MM3 Basophils # (Auto) 0.0 TH/MM3 0.1 TH/MM3 CBC Comment DIFF FINAL DIFF FINAL Differential Comment Laboratory Tests Test 03/26/17 06:56 03/27/17 06:24 Blood Urea Nitrogen 6 MG/DL 6 MG/DL Creatinine 0.56 MG/DL 0.54 MG/DL Random Glucose 127 MG/DL 126 MG/DL Calcium Level 7.9 MG/DL 7.8 MG/DL Magnesium Level 1.9 MG/DL Sodium Level 134 MEQ/L 131 MEQ/L Potassium Level 3.3 MEQ/L 3.3 MEQ/L Chloride Level 101 MEQ/L 97 MEQ/L Carbon Dioxide Level 24.8 MEQ/L 25.2 MEQ/L Anion Gap 8 MEQ/L 9 MEQ/L Estimat Glomerular Filtration Rate 112 ML/MIN 117 ML/MIN Imaging Last Impressions Abdomen/Pelvis CT 03/18/17 1205 Signed Impressions: Service Date/Time: Saturday, March 18, 2017 13:02 - CONCLUSION: 1. Large heterogeneous pelvic mass is not significantly changed in size. 2. Right ureter is now obstructed distally. Mild hydronephrosis now seen and with associated swelling and delayed nephrogram of the right kidney. Retroperitoneal lymphadenopathy narrowing the 2 right renal arteries may also be contributing to the delayed nephrogram. 3. Metastatic retroperitoneal lymphadenopathy again noted, similar to before. Most of the nodes appear partly necrotic. 4. Trace free fluid now seen in the pelvic cul-de-sac. No perceptible abscess. 5. Subcentimeter hypodensity of the liver is unchanged and most likely a benign cyst. Mateo Costa MD Chest X-Ray 03/18/17 1155 Signed Impressions: Service Date/Time: Saturday, March 18, 2017 12:10 - CONCLUSION: Emphysema. No evidence of acute cardiopulmonary disease. Mateo Costa MD Physical Exam GENERAL:Thin built patient, in no apparent distress. SKIN: No rashes, ecchymoses or lesions. Cool and dry. HEAD: Atraumatic. Normocephalic. No temporal or scalp tenderness. EYES: Pupils equal round and reactive. Extraocular motions intact. No scleral icterus. No injection or drainage. ENT: Nose without bleeding, purulent drainage or septal hematoma. Throat without erythema, tonsillar hypertrophy or exudate. Uvula midline. Airway patent. NECK: Trachea midline. No JVD or lymphadenopathy. Supple, nontender, no meningeal signs. CARDIOVASCULAR: Regular rate and rhythm without murmurs, gallops, or rubs. RESPIRATORY: Clear to auscultation. Breath sounds equal bilaterally. No wheezes , rales, or rhonchi. GASTROINTESTINAL: Abdomen soft, nondistended. Right CVA tenderness. Diffuse abdominal tenderness. Bowel sounds hyperactive. Passing gas. MUSCULOSKELETAL: Extremities without clubbing, cyanosis, or edema. No joint tenderness, effusion, or edema noted. No calf tenderness. Negative Homans sign bilaterally. NEUROLOGICAL: Awake and alert. Grossly non focal Psych: cooperative IV line sites with no e.o infection. Assessment & Plan Remarks Sepsis present on admission. Escherichia coli gram-negative nino bacteremia likely secondary to UTI Complicated UTI with obstruction secondary to large uterine mass. Uterine cancer with retroperitoneal adenopathy likely advanced stage. Has been offered palliative radiation therapy. Persistent fevers: ? source control not achieved yet. Hopefully stent placement will help relieve the infected urine in hydronephrotic kidney. Hypoalbuminemia: nutritional, cancer. Recs Continue Levaquin IV for now (pt has ileus will keep IV for now) Follow cultures Follow clinically. CT Abd/pelvis today: D.w . If no new intra abd pathology from ID standpoint will provide recs from ID standpoint. Patient asked me questions about type of cancer, life expectancy etc. These are questions for oncology team. I notified charge master analyst to have these addressed for her. Jenny Jackson MD Mar 27, 2017 17:31
--- NOTE | 2017-03-27 17:54 | HHI.PR ---
Addendum to Inpatient Note Addendum Reason: Additional Documentation Additional Information I evaluated pt, she feels more comfortable after pain medication, she is worried that when she moves for CT abd/pelvis it will hurt again. Plan Will try to adjust pain meds again. f/u CT abd/pelvis Karen Acuna MD Mar 27, 2017 17:54
[2017-03-27] MEDS: POTASSIUM CHLORIDE INJ 10 MEQ in DEXT 5%-NACL 0.9% 1000 ML INJ 1,000 ML IV SCH ×2 (18:12→21:34)
[2017-03-27] MEDS ORDERED: hydrALAZINE HCL 10 MG TAB PO PRN (19:30)
[2017-03-27] MEDS ORDERED: IOHEXOL 350 MG/ML 10 ML VIAL (for RAD DIAG) IVCONTRAST ONE (21:10)
--- NOTE | 2017-03-27 21:25 | RADRPT ---
EXAM DATE/TIME: 03/27/2017 20:57 [facility] COMPARISON: CT ABDOMEN & PELVIS W CONTRAST, March 18, 2017, 13:02. INDICATIONS : Abdomen pain with nausea. Patient has a known uterine cancer with large pelvic mass and right hydrone phrosis. IV CONTRAST: 70 cc Omnipaque 350 (iohexol) IV ORAL CONTRAST: Partial prescribed oral contrast ingested. RADIATION DOSE: 9.52 CTDIvol (mGy) MEDICAL HISTORY : Uterine cancer SURGICAL HISTORY : None. Renal stent ENCOUNTER: Initial ACUITY: 1 day PAIN SCALE: 6/10 LOCATION: Bilateral abdomen TECHNIQUE: Volumetric scanning of the abdomen and pelvis was performed. Using automated exposure control and ad justment of the mA and/or kV according to patient size, radiation dose was kept as low as reasonably achievable to obtain optimal diagnostic quality images. DICOM format image data is available electro nically for review and comparison. FINDINGS: LOWER LUNGS: Small bilateral pleural effusions are now noted. LIVER: Homogeneous density with a small cystic structure again noted in the right lobe. There is no dilation of the biliary tree. No calcified gallstones. SPLEEN: Normal size without lesion. PANCREAS: Within normal limits. KIDNEYS: Interval placement of right pigtail stent catheter with mild hydronephrosis again noted. There is a s lightly delayed right nephrogram again noted. ADRENAL GLANDS: Within normal limits. VASCULAR: There is no aortic aneurysm. BOWEL/MESENTERY: There is a small hiatal hernia. An abnormal bowel gas pattern is noted with gaseous distention in the ascending and transverse colon multiple air-fluid levels. There are multiple loops of nondilated sma ll bowel with multiple air-fluid levels as well. Contrast is noted in the proximal and mid small inés l. There is no free air. ABDOMINAL WALL: Within normal limits. RETROPERITONEUM: Retroperitoneal adenopathy is again noted. There is adenopathy along the common iliac chain is as wel l. BLADDER: Ortega catheter is present the bladder is displaced to the right a large pelvic mass. Pigtail stent ca theter is located in the REPRODUCTIVE: A large inhomogeneous cystic and solid pelvic mass is again noted. This measures up to approximately 11.2 x 10.8 cm in diameter and is not significantly changed. INGUINAL: There is no lymphadenopathy or hernia. MUSCULOSKELETAL: Within normal limits for patient age. There is evidence of anasarca increased density throughout the subcutaneous fat. CONCLUSION: 1. Interval placement of right pigtail stent catheter with residual mild right hydronephrosis. 2. Large pelvic mass again noted without significant change. 3. Abnormal bowel gas pattern most consistent with an ileus. 4. New small bilateral pleural effusions and anasarca. Altaf Sanches MD on March 27, 2017 at 21:16 Board Certified Radiologist. This report was verified electronically.
[2017-03-27] MEDS: ONDANSETRON HCL 4 MG/2 ML VIAL IVP PRN (22:18)
[2017-03-28] VITALS (8 sets, daily range): BP systolic 137–177; BP diastolic 75–92; PULSE 86–110; RESP 16–17; TEMP 96.3–98.7; O2SAT 90–96
[2017-03-28] MEDS: HALOPERIDOL 1 MG TAB PO SCH ×5 (00:10→23:55)
[2017-03-28] MEDS: HYDROmorphone HCL PF 1 MG/ML VIAL IV PRN ×6 (00:16→22:30)
[2017-03-28] MEDS: oxyCODONE/ACETAMINOPHEN 10 MG/325 MG TAB PO PRN ×3 (04:17→12:53)
[2017-03-28] MEDS: SODIUM CHLORIDE 0.9% FLUSH 10 ML FLUSH IV FLUSH PRN (07:37)
[2017-03-28 08:01] LABS: AUTOMATED NEUTROPHIL # 19.9 TH/MM3 (1.8-7.7); BASOPHIL # 0.1 TH/MM3 (0-0.2); BASOPHIL % 0.4 % (0.0-2.0); EOSINOPHIL % 0.2 % (0.0-4.0); HEMATOCRIT 34.6 % (35.0-46.0); HEMO FLAGS DIFF FINAL; LYMPH % 4.6 % (9.0-44.0); MEAN CELL VOLUME 84.4 FL (80.0-100.0); MEAN CORPUSCULAR HEMOGLOBIN 28.5 PG (27.0-34.0); MEAN CORPUSCULAR HGB CONC 33.8 % (32.0-36.0); MONO % 5.9 % (0.0-8.0); NEUT % 88.9 % (16.0-70.0); PLATELET COUNT 607 TH/MM3 (150-450); RED CELL DISTRIBUTION WIDTH 13.8 % (11.6-17.2); WHITE BLOOD COUNT 22.4 TH/MM3 (4.0-11.0)
[2017-03-28 08:22] LABS: BICARBONATE 27.4 MEQ/L (21.0-32.0); MAGNESIUM 1.9 MG/DL (1.5-2.5); POTASSIUM 3.9 MEQ/L (3.5-5.1)
[2017-03-28] MEDS: POTASSIUM CHLORIDE INJ 10 MEQ in DEXT 5%-NACL 0.9% 1000 ML INJ 1,000 ML IV SCH ×2 (08:23→23:56)
[2017-03-28] MEDS: DOCUSATE SODIUM 50 MG/SENNA 8.6 MG TAB PO SCH ×2 (08:23→20:36)
[2017-03-28] MEDS: SODIUM CHLORIDE 0.9% FLUSH 10 ML FLUSH IV FLUSH SCH ×2 (08:24→20:37)
--- NOTE | 2017-03-28 12:17 | HHI.HCPN ---
Reason for visit a. To assist with evaluation and management of symptoms including: pain, nausea b. To assist medical decision maker(s) with: better understanding of current medical conditions; weighing benefits/burdens of medical treatment options; making medical treatment decisions. Subjective/Interval History Pt now having bowel movements, s/p 2 doses Relistor given 03/24, 03/25. Now on reglan + pericolace, prn lactulose,MOM, dulcolax. S/p CT abd/pelvis yesterday following stent placement. CT = Interval placement of right pigtail stent catheter with residual mild right hydronephrosis. Large pelvic mass again noted without significant change. Abnormal bowel gas pattern most consistent with an ileus. New small bilateral pleural effusions and anasarca. WBC remains elevated 22, still on Levaquin per ID, ? still r/t UTI, hydronephrosis, should see improvement post stent. BC 03/27 no growth x 1 day. Pt still w intermittent nausea, abdominal pain. Requiring IV Dilaudid 1mg 5-6x per day past 2 days, PO percocet 10mg x4 yesterday. Given significant pain levels, and prn requirements may consider around the clock longer acting opiate. Pain likely to persist 2/2 large mass, though hopefully palliative radiation provides some tumor burden reduction. She has been tolerating some PO now, having some bowel movements. She remains at risk for ileus 2/2 opiate requirements-- cont bowel regimen which appears to be working now. If cont to have constipation/ileus consider adding Relistor every other day as needed for opiate related constipation. dilaudid requirements 5mg q day = to 100mg oral morphine equivalents a day. reducing this by 25% would be 75mg morphine a day. consider adding 30mg morphine LONG ACTING Q 12 hr (60mg total Q day) , with dilaudid 0.5-1mg Q 4 hr PRN breakthrough, as this may provide more stable pain relief throughout the day for pt. Pt seen in room dual visit with Patel MCKEON. She is alert, oriented and appropriate. Pleasant. Remembers me from the other day. She endorses nausea is much better than it has been still with intermittent bouts but maybe once or twice a day versus all day long. She endorses pretty constant pain still to her abdomen more so on the right side-a sharp aching pain. Indicates pain generally 9 or 10 after pain meds may be a 7-8. Fair appetite able to tolerate eating her meals today and yesterday has just ordered lunch. No other complaints. She has questions regarding her long-term prognosis and chance for cure from cancer. Gently explore with her that based on current findings treatment options appear to be palliative, though [facility] onc[facility] considers that systemic chemotherapy could potentially be an option depending on multiple factors going forward, but still does not appear that systemic therapy would be curative. She asked how much time might she have, advise that much of that will depend on current clinical course and responses to illness and treatments thus far--I would defer very specific prognostication to [facility] onc[facility]. She requests I call her to provide update. Discuss with her pain level, pain management options looking at frequent prns required, constant pain level, she is amenable to trying oral dosing of long- acting with using IV for breakthrough; with possible up titration of long- acting if she tolerates. Discussed at length with primary nurse Beverly, as well as medical attending Dr. Oscar. Advance Directives Living Will: Never completed Health Care Surrogate: Never completed Durable Power of Wide Area Network Engineer: Never completed Objective Vital Signs Date Time Temp Pulse Resp B/P (MAP) Pulse Ox O2 Delivery O2 Flow Rate FiO2 03/28/17 08:20 86 16 151/84 (106) 03/28/17 08:00 98.5 97 16 141/75 (97) 90 03/28/17 04:30 97.3 106 17 177/92 (120) 91 03/28/17 01:14 90 137/76 (96) 03/28/17 00:20 97.0 100 16 162/84 (110) 96 03/27/17 21:40 93 155/89 (111) 03/27/17 20:25 96.1 97 17 174/89 (117) 96 03/27/17 16:00 99.6 102 16 164/92 (116) 95 03/27/17 12:00 97.6 94 16 146/82 (103) 94 Intake & Output 03/28/17 03/28/17 07:00 19:00 Intake Total 480 ml 1005 ml Output Total 2300 ml Balance -1820 ml 1005 ml Intake Oral 480 ml IV Total 1005 ml Output Urine Total 2300 ml # Voids 3 Physical Exam CONSTITUTIONAL/GENERAL: This is an ill appearing pt TUBES/LINES/DRAINS:PIV upper extremity, Catheter CARDIOVASCULAR: Regular rate and rhythm without murmurs. No JVD. Peripheral pulses symmetric. Peripheral pulses palpable. RESPIRATORY/CHEST: Symmetric, unlabored respirations. On room air. Clear to auscultation. Breath sounds equal bilaterally. GASTROINTESTINAL: Abdomen slightly firm, diffusely tender, nondistended. minimal palpation due to tenderness, firm, no readily palpable masses. Bowel sounds hyperactive. GENITOURINARY: Without palpable bladder distension. Ortega catheter in place. NEUROLOGICAL: Awake and alert. Oriented 3, appropriate. InSight appears good. Motor and sensory grossly within normal limits. Follows commands. Cognitively sharp. Moves all extremities. PSYCHIATRIC: No obvious anxiety/depression. no apparent hallucinations or other psychotic thought process. Diagnostic Tests Laboratory Laboratory Tests Test 03/26/17 06:56 03/27/17 06:24 03/28/17 06:22 White Blood Count 19.2 TH/MM3 (4.0-11.0) 22.2 TH/MM3 (4.0-11.0) 22.4 TH/MM3 (4.0-11.0) Red Blood Count 4.11 MIL/MM3 (4.00-5.30) 3.95 MIL/MM3 (4.00-5.30) 4.10 MIL/MM3 (4.00-5.30) Hemoglobin 11.8 GM/DL (11.6-15.3) 11.2 GM/DL (11.6-15.3) 11.7 GM/DL (11.6-15.3) Hematocrit 34.9 % (35.0-46.0) 33.3 % (35.0-46.0) 34.6 % (35.0-46.0) Mean Corpuscular Volume 85.0 FL (80.0-100.0) 84.3 FL (80.0-100.0) 84.4 FL (80.0-100.0) Mean Corpuscular Hemoglobin 28.6 PG (27.0-34.0) 28.5 PG (27.0-34.0) 28.5 PG (27.0-34.0) Mean Corpuscular Hemoglobin Concent 33.7 % (32.0-36.0) 33.8 % (32.0-36.0) 33.8 % (32.0-36.0) Red Cell Distribution Width 14.0 % (11.6-17.2) 13.5 % (11.6-17.2) 13.8 % (11.6-17.2) Platelet Count 509 TH/MM3 (150-450) 533 TH/MM3 (150-450) 607 TH/MM3 (150-450) Mean Platelet Volume 7.5 FL (7.0-11.0) 7.2 FL (7.0-11.0) 7.7 FL (7.0-11.0) Neutrophils (%) (Auto) 84.1 % (16.0-70.0) 87.4 % (16.0-70.0) 88.9 % (16.0-70.0) Lymphocytes (%) (Auto) 7.8 % (9.0-44.0) 5.5 % (9.0-44.0) 4.6 % (9.0-44.0) Monocytes (%) (Auto) 7.5 % (0.0-8.0) 6.3 % (0.0-8.0) 5.9 % (0.0-8.0) Eosinophils (%) (Auto) 0.4 % (0.0-4.0) 0.3 % (0.0-4.0) 0.2 % (0.0-4.0) Basophils (%) (Auto) 0.2 % (0.0-2.0) 0.5 % (0.0-2.0) 0.4 % (0.0-2.0) Neutrophils # (Auto) 16.2 TH/MM3 (1.8-7.7) 19.4 TH/MM3 (1.8-7.7) 19.9 TH/MM3 (1.8-7.7) Lymphocytes # (Auto) 1.5 TH/MM3 (1.0-4.8) 1.2 TH/MM3 (1.0-4.8) 1.0 TH/MM3 (1.0-4.8) Monocytes # (Auto) 1.4 TH/MM3 (0-0.9) 1.4 TH/MM3 (0-0.9) 1.3 TH/MM3 (0-0.9) Eosinophils # (Auto) 0.1 TH/MM3 (0-0.4) 0.1 TH/MM3 (0-0.4) 0.0 TH/MM3 (0-0.4) Basophils # (Auto) 0.0 TH/MM3 (0-0.2) 0.1 TH/MM3 (0-0.2) 0.1 TH/MM3 (0-0.2) CBC Comment DIFF FINAL DIFF FINAL DIFF FINAL Differential Comment Blood Urea Nitrogen 6 MG/DL (7-18) 6 MG/DL (7-18) 4 MG/DL (7-18) Creatinine 0.56 MG/DL (0.50-1.00) 0.54 MG/DL (0.50-1.00) 0.54 MG/DL (0.50-1.00) Random Glucose 127 MG/DL (74-106) 126 MG/DL (74-106) 112 MG/DL (74-106) Calcium Level 7.9 MG/DL (8.5-10.1) 7.8 MG/DL (8.5-10.1) 8.2 MG/DL (8.5-10.1) Magnesium Level 1.9 MG/DL (1.5-2.5) 1.9 MG/DL (1.5-2.5) Sodium Level 134 MEQ/L (136-145) 131 MEQ/L (136-145) 132 MEQ/L (136-145) Potassium Level 3.3 MEQ/L (3.5-5.1) 3.3 MEQ/L (3.5-5.1) 3.9 MEQ/L (3.5-5.1) Chloride Level 101 MEQ/L (98-107) 97 MEQ/L (98-107) 96 MEQ/L (98-107) Carbon Dioxide Level 24.8 MEQ/L (21.0-32.0) 25.2 MEQ/L (21.0-32.0) 27.4 MEQ/L (21.0-32.0) Anion Gap 8 MEQ/L (5-15) 9 MEQ/L (5-15) 9 MEQ/L (5-15) Estimat Glomerular Filtration Rate 112 ML/MIN (>89) 117 ML/MIN (>89) 117 ML/MIN (>89) Result Diagram: 03/28/17 0622 03/28/17 0622 Microbiology Microbiology Date/Time Source Procedure Growth Status 03/27/17 19:00 Blood Peripheral Aerobic Blood Culture - Preliminary NO GROWTH IN 1 DAY Resulted 03/27/17 19:00 Blood Peripheral Anaerobic Blood Culture - Preliminary NO GROWTH IN 1 DAY Resulted 03/27/17 18:55 Blood Peripheral Aerobic Blood Culture - Preliminary NO GROWTH IN 1 DAY Resulted 03/27/17 18:55 Blood Peripheral Anaerobic Blood Culture - Preliminary NO GROWTH IN 1 DAY Resulted Imaging Last Impressions Abdomen/Pelvis CT 03/27/17 0000 Signed Impressions: Service Date/Time: Monday, March 27, 2017 20:57 - CONCLUSION: 1. Interval placement of right pigtail stent catheter with residual mild right hydronephrosis. 2. Large pelvic mass again noted without significant change. 3. Abnormal bowel gas pattern most consistent with an ileus. 4. New small bilateral pleural effusions and anasarca. Altaf Sanches MD Abdomen X-Ray 03/24/17 0000 Signed Impressions: Service Date/Time: Friday, March 24, 2017 12:07 - CONCLUSION: Mild colonic ileus. Harish Diaz MD Chest X-Ray 03/22/17 0000 Signed Impressions: Service Date/Time: Wednesday, March 22, 2017 21:33 - CONCLUSION: Persistent severe emphysematous change in the left upper lung with some compression/atelectasis at the left mid and lower lung. 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 x35 yrs. Originally from [place], is here with green card and legal resident. Has lived in [place] for 30+ years Spiritual: No particular sabianism affiliation, prays on her own. Does not desire integration assistant support at this time Legal:Patient is currently alert, oriented and able to make her own decisions. She does not have advanced directives or HCS. Per [place] statutes if she became incapacitated her would be legal decision maker. Patient has verbally indicated today that she would want him to be her legal decision maker. Offered assistance with advanced directive, HCS during hospitalization, she does not wish to complete today palliative available to assist if she desires. Ethical issues impacting care: Important Contacts Nicolas Jara [phone] Silvia Davis friend [phone] . Prognosis Patient appears to have advanced malignancy process recent pathology indicative of uterine carcinosarcoma. She has expansive tumor burden which is not amenable to surgical intervention. She has been offered palliative radiation, for tumor burden reduction. Possible may be offered palliative chemotherapy depending on her performance status. She is very high risk for complications, decline related to advanced disease process and current sequelae she is experiencing secondary to pelvic mass. Appropriate for hospice if goals compatible. . Code Status: Full Code Plan * Legal decision maker:Patient is currently alert, oriented and able to make her own decisions. She does not have advanced directives or HCS. Per [place] statutes if she became incapacitated her would be legal decision maker. Patient has verbally indicated today that she would want him to be her legal decision maker. Offered assistance with advanced directive, HCS during hospitalization, she does not wish to complete today palliative available to assist if she desires. * Goals: Patient wants to have better pain control. She has more questions regarding long-term prognosis of cancer process; I gently explored some of this with her today however regarding chemotherapy and how much additional time she may gain if she becomes a candidate for chemotherapy I would have to defer to oncology area apparently [facility] oncology has been notified that patient requests additional information. Would plan to have ongoing pain discussions with patient in the coming days regarding prognosis, her overall condition, as well as options of hospice should she not desire further aggressive/invasive measures. * CODE STATUS: Full code * SYMPTOMS: --Constipation-multifactorial: Large abdominal mass, abdominal imaging+ ileus , no SBO. Recent use of PO opiates for the past 1 week.-Currently on bowel regimen, advised nursing to administer prn Dulcolax per rectum, Reglan has been added by medical attending today, discussed with medical attending addition of Relistor trial as some of this may be compounded by daily opiate use. Relistor added for today, tomorrow. Monitor effectiveness. --Nausea-multifactorial- Large abdominal mass, abdominal imaging+ ileus, no SBO. Patient on antiemetics with refractory nausea likely 2/2 ileus, abdominal mass; nausea improving some. --Abdominal pain--multifactorial: Large abdominal mass, abdominal imaging+ ileus, no SBO. Currently utilizing Percocet, Dilaudid for breakthrough pain . dilaudid requirements 5mg q day = to 100mg oral morphine equivalents a day. reducing this by 25% would be 75mg morphine a day. recommend adding 30mg morphine LONG ACTING Q 12 hr (60mg total Q day) , with continued dilaudid 0.5- 1mg Q 4 hr PRN breakthrough, as this may provide more stable pain relief throughout the day for pt. --Malnutrition-poor oral intake secondary to abdominal pain, nausea and constipation. + Weight loss, unknown amount. Hopefully oral in take can improve once ileus improves; likely would benefit from nutritional supplement/ ensure. Albumin 1.8. Oral intake improving slightly able to tolerate without vomiting. * Palliative care will continue to follow during hospital course as condition evolves, to assist patient/decision-maker with understanding of medical conditions, weighing benefits/burdens of treatment options, for clarification of goals of treatment. Additionally will assist with any symptoms of palliative concern . Attestation To help prompt me to consider important information that might be impacting today's encounter and assessment, information from prior notes written by myself or my colleagues may have been "brought forward" into today's note. My signature on this note, however, is an attestation that I personally performed the exam, history, and/or decision-making noted today, and, unless otherwise indicated, the interactions with patient, family, and staff as well as the review of records all occurred today. I also attest that the listed assessment and stated plan reflect my best clinical judgment today based on the combination of historical information, prior notes, and today's exam/ interactions. When time spent is documented, it refers only to time spent today by the signer, or if indicated, combined time spent today by collaborating physician/nurse practitioner. Kaylah Alvarado Mar 28, 2017 12:17
--- NOTE | 2017-03-28 13:22 | HHI.PR ---
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 She is known to have recent diagnosis of uterine carcinosarcoma. She apparently 4 days prior to this presentation (03/14/17) had cystoscopy, proctoscopy, and endocervical/endometrial mass biopsy due to chronic vaginal bleeding. During the cystoscopy bladder never distended and there was concern that there could be a defect in the bladder possibly communicating with the tumor or peritoneal cavity.Proctosigmoidoscopy showed extrinsic compression which precluded evaluation beyond that point. * Repeat CT of abdomen pelvis shows pelvic mass not significant change but right ureter is not obstructed with mild hydronephrosis and trace fluid in the cul-de-sac. Dr. Clifton recommended transfer to the main hospital and admission to the medical service and consult to . Leukocytosis WBC 21.5. * At presentation patient endorsed difficulty breathing, noted to be tachypneic with crackles. Other ROS negative. * She was admitted for sepsis, UTI possible fistula. Patient on vancomycin, Zosyn, silverio cultures obtained. Hyponatremia felt to be secondary to vomiting. Started on Dilaudid for pain management, consulted for stenting or possible nephrostomy. Radiation oncology consulted. She also received Lasix for fluid overload. * RESIDENTIAL LEASING AGENT oncology Dr Clifton known to patient consulted; notes uterus completely replaced with tumor. Pathology =The uterus was completely replaced with tumor. Pathology returned poorly differentiated malignant neoplasm, necrotic and fibrotic tissue and pattern and staining suggests that this may be a carcinosarcoma. Dr. Clifton further notes that patient had been feeling poorly for many weeks though pain was significantly worse in the days prior to presentation as well as nausea and vomiting. * RESIDENTIAL LEASING AGENT oncology further notes extensive disease, and discussions with the patient regarding difficult circumstances. Hysterectomy or other surgical intervention for tumor is not feasible as it has grown through the wall of the uterus and cervix and infiltrated into surrounding tissues all the way to pelvic sidewalls so much that it is causing obstruction right ureter. Furthermore there is extensive metastatic disease with retroperitoneal adenopathy including adenopathy near the r renal vessels that is causing some compromise to renal vessels. She was in favor of trying to palliate disease aggressively. Dr. Bang recommends best course of action would be to consider radiation therapy to pelvis to try to reduce tumor burden and prevent further ureteral obstruction and stop bleeding. Would also be prudent to consider radiation to adenopathy especially adenopathy causing compromise to renal vessels. After maximum palliative radiation has been given can discuss further any potential value of chemotherapy for metastatic disease. RESIDENTIAL LEASING AGENT Oncology feels symptoms are probably directly or indirectly related to underlying disease process and resulting in a significant pain and anxiety which is so severe which is an contributing to nausea vomiting and inability to take food and fluids. * Urology consulted:Moderate right hydroureteronephrosis most likely secondary to extrinsic compression of the right ureter from the large pelvic mass/ retroperitoneal adenopathy. Plan for cystoscopy right retrograde pyelogram and long-term ureteral stent placement. Could consider eventual stent removal if favorable response to radiation. * Infectious disease consulted: Patient with Escherichia coli gram-negative Sukumar bacteremia, likely secondary to UTI., Complicated UTI with obstruction/ persistent fevers. Stent placement should help relieve hydronephrotic kidney infected in urine. Recommend continue Zosyn, Levaquin, repeat blood cultures. Follow cultures. * 03/21/17 cystoscopy, right retrograde, right stent insertion * Radiation oncology consulted: Radiation oncology notes aggressive palliation reasonable, radiation therapy may stop bleeding and help with pain control. Difficult to know how local control will be obtained. Discussion of potential systemic chemotherapy. Plan for simulation. * 03/22 ID added hepatitis, HIV screen. Continued on IV Levaquin, following cultures. Ensure added for nutrition. Some constipation. PT following, ambulatory with a rolling walker. [Hepatitis, HIV screen negative] * 03/24 patient continues to have nausea, hypercellular elevation, abdominal pain rating 10/10. Patient reports to medical attending pain is the same. Palliative care consulted to assist with pain control. Still no bowel movement currently on scheduled Reglan, Senna, milk of mag, docusate. She has prn lactulose, Dulcolax suppository available (which have not been used yet). Hospitalist Notes: Discussed with ergonomic specialist today the patient works and she had the idea she will come back to work after this hospitalization does not realize her actual compromise, seen in her bedroom, started Morphine Extended release 30 mg BID as recommended by editorial specialist I agree will continue Dilaudid every 3 hours as breakthrough pain. 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, she wants to continue as a Full Code Objective Vital Signs Date Time Temp Pulse Resp B/P (MAP) Pulse Ox O2 Delivery O2 Flow Rate FiO2 03/28/17 12:55 98.7 92 16 157/79 (105) 94 03/28/17 08:20 86 16 151/84 (106) 03/28/17 08:00 98.5 97 16 141/75 (97) 90 03/28/17 04:30 97.3 106 17 177/92 (120) 91 03/28/17 01:14 90 137/76 (96) 03/28/17 00:20 97.0 100 16 162/84 (110) 96 03/27/17 21:40 93 155/89 (111) 03/27/17 20:25 96.1 97 17 174/89 (117) 96 03/27/17 16:00 99.6 102 16 164/92 (116) 95 I/O 03/27/17 03/27/17 03/27/17 03/28/17 03/28/17 03/28/17 06:59 14:59 22:59 06:59 14:59 22:59 Intake Total 240 ml 3141 ml 1485 ml 480 ml 1005 ml Output Total 850 ml 1350 ml 2300 ml Balance -610 ml 1791 ml 1485 ml -1820 ml 1005 ml Intake Oral 240 ml 480 ml 480 ml IV Total 3141 ml 1005 ml 1005 ml Output Urine Total 850 ml 1350 ml 2300 ml # Voids 3 # Bowel Movements 0 2 Result Diagram: 03/28/17 0622 03/28/17 0622 Imaging Last Impressions Abdomen/Pelvis CT 03/27/17 0000 Signed Impressions: Service Date/Time: Monday, March 27, 2017 20:57 - CONCLUSION: 1. Interval placement of right pigtail stent catheter with residual mild right hydronephrosis. 2. Large pelvic mass again noted without significant change. 3. Abnormal bowel gas pattern most consistent with an ileus. 4. New small bilateral pleural effusions and anasarca. Altaf Sanches MD Abdomen X-Ray 03/24/17 0000 Signed Impressions: Service Date/Time: Friday, March 24, 2017 12:07 - CONCLUSION: Mild colonic ileus. Harish Diaz MD Chest X-Ray 03/22/17 0000 Signed Impressions: Service Date/Time: Wednesday, March 22, 2017 21:33 - CONCLUSION: Persistent severe emphysematous change in the left upper lung with some compression/atelectasis at the left mid and lower lung. Mateo Harrington MD Procedures 03/21/2017 Cystoscopy, right retrograde pyelogram and senior care right ureteral stent insertion Other Results Laboratory Tests Test 03/18/17 11:55 03/18/17 12:55 03/21/17 16:20 03/23/17 06:06 Prothrombin Time 12.7 SEC Prothromb Time International Ratio 1.1 RATIO Activated Partial Thromboplast Time 35.8 SEC Lactic Acid Level 1.3 mmol/L Urine Collection Type CATH Urine Color YELLOW Urine Turbidity CLOUDY Urine pH 6.0 Urine Specific Galva 1.016 Urine Protein 100 mg/dL Urine Glucose (UA) NEG mg/dL Urine Ketones 15 mg/dL Urine Occult Blood LARGE Urine Nitrite POS Urine Bilirubin NEG Urine Leukocyte Esterase MOD Urine RBC 0-3 /hpf Urine WBC 25-49 /hpf Urine Bacteria MANY /hpf Microscopic Urinalysis Comment CULTURE INDICATED Protein Corrected Calcium 8.2 MG/DL Hepatitis A IgM Antibody NEGATIVE Hepatitis B Surface Antigen NEGATIVE Hepatitis B Core IgM Antibody NEGATIVE Hepatitis C Antibody NEGATIVE HIV (1&2) Antibody NEGATIVE Test 03/24/17 13:58 03/28/17 06:22 Blood Urea Nitrogen 5 MG/DL 4 MG/DL Creatinine 0.58 MG/DL 0.54 MG/DL Random Glucose 124 MG/DL 112 MG/DL Total Protein 6.0 GM/DL Albumin 1.8 GM/DL Calcium Level 7.9 MG/DL 8.2 MG/DL Alkaline Phosphatase 159 U/L Aspartate Amino Transf (AST/SGOT) 15 U/L Alanine Aminotransferase (ALT/SGPT) 11 U/L Total Bilirubin 0.4 MG/DL Sodium Level 136 MEQ/L 132 MEQ/L Potassium Level 3.1 MEQ/L 3.9 MEQ/L Chloride Level 100 MEQ/L 96 MEQ/L Carbon Dioxide Level 25.2 MEQ/L 27.4 MEQ/L White Blood Count 22.4 TH/MM3 Red Blood Count 4.10 MIL/MM3 Hemoglobin 11.7 GM/DL Hematocrit 34.6 % Mean Corpuscular Volume 84.4 FL Mean Corpuscular Hemoglobin 28.5 PG Mean Corpuscular Hemoglobin Concent 33.8 % Red Cell Distribution Width 13.8 % Platelet Count 607 TH/MM3 Mean Platelet Volume 7.7 FL Neutrophils (%) (Auto) 88.9 % Lymphocytes (%) (Auto) 4.6 % Monocytes (%) (Auto) 5.9 % Eosinophils (%) (Auto) 0.2 % Basophils (%) (Auto) 0.4 % Neutrophils # (Auto) 19.9 TH/MM3 Lymphocytes # (Auto) 1.0 TH/MM3 Monocytes # (Auto) 1.3 TH/MM3 Eosinophils # (Auto) 0.0 TH/MM3 Basophils # (Auto) 0.1 TH/MM3 CBC Comment DIFF FINAL Differential Comment Magnesium Level 1.9 MG/DL Anion Gap 9 MEQ/L Estimat Glomerular Filtration Rate 117 ML/MIN Objective Remarks GENERAL: Alert, oriented 3, appears more comfortable today HEAD: Normocephalic. EYES: EOMI NECK: trachea midline. CARDIOVASCULAR: mildly tachycardic without murmurs RESPIRATORY: Breath sounds equal bilaterally. no wheezing or use of accessory muscles. GASTROINTESTINAL: Abdomen soft, tender to light palpation w some voluntary guarding. MUSCULOSKELETAL: moves extremities, some edema noted Medications and IVs Current Medications Medications (Trade) Dose Ordered Sig/Mata Route Start Time Stop Time Status Last Admin (NS Flush) 2 ml UNSCH PRN IV FLUSH 03/18/17 14:15 03/28/17 07:37 (NS Flush) 2 ml BID IV FLUSH 03/18/17 21:00 03/27/17 20:43 (Zofran Inj) 4 mg Q6H PRN IVP 03/18/17 14:15 03/27/17 22:18 (Narcan Inj) 0.4 mg UNSCH PRN IV 03/18/17 14:15 Potassium Chloride 10 meq/ Dextrose/Sodium Chloride 1,005 ml @ 75 mls/hr [id number] IV 03/19/17 13:30 03/28/17 08:23 (Tylenol) 650 mg Q4H PRN PO 03/19/17 16:45 03/21/17 17:30 Levofloxacin/ Dextrose 150 ml @ 100 mls/hr Q24H IV 03/19/17 17:00 03/27/17 16:32 (Dilaudid Pf Inj) 0.5 mg Q3H PRN IV 03/20/17 14:15 Future Hold (Dilaudid Pf Inj) 1 mg Q3H PRN IV 03/20/17 14:15 Future Hold 03/21/17 14:15 (Percocet 7.5-325 Mg) 1 tab Q4H PRN PO 03/21/17 14:45 03/24/17 08:23 (Protonix) 40 mg Q24H PO 03/22/17 17:00 03/27/17 16:32 (Duoneb Neb) 1 ampule Q4HR NEB PRN NEB 03/22/17 19:30 (Sharon-Colace) 1 tab BID PO 03/22/17 21:00 03/28/17 08:23 (Milk Of Magnesia Liq) 30 ml Q12H PRN PO 03/22/17 19:30 03/23/17 13:26 (Senokot) 17.2 mg Q12H PRN PO 03/22/17 19:30 03/23/17 11:20 (Dulcolax Supp) 10 mg DAILY PRN RECTAL 03/22/17 19:30 (Lactulose Liq) 30 ml DAILY PRN PO 03/22/17 19:30 03/26/17 05:07 (Percocet 10-325 Mg) 1 tab Q4H PRN PO 03/24/17 11:00 03/28/17 12:53 (Reglan Inj) 10 mg Q8H PRN IV PUSH 03/24/17 11:00 03/24/17 21:48 (Haldol) 1 mg Q6HR PO 03/24/17 18:00 03/28/17 12:53 (Dilaudid Pf Inj) 1 mg Q3H PRN IV 03/24/17 20:15 03/28/17 10:59 (Vasotec Inj) 1.25 mg Q6H PRN IV PUSH 03/27/17 19:30 (Apresoline) 10 mg Q6H PRN PO 03/27/17 19:30 A/P Assessment and Plan 57-year-old female admitted secondary to UTI and sepsis. s/p right stent placement for obstructive uropathy. Escherichia coli UTI Escherichia coli bacteremia Continue Levaquin IV per infectious disease Urine and blood cultures are positive for Escherichia coli. Leukocytosis still present. Discussed with Doctor Jenny Jackson did not found any Infectious disease on her CT abdomen off antibiotics. Urinary obstruction Moderate right Hydronephrosis Uterine carcinosarcoma Vaginal bleeding Status post cystoscopy, long-term right ureteral stent insertion. Radiation treatments to decrease tumor burden. Palliative chemotherapy after radiation will be considered by gynecological oncology. Not a candidate for surgery due to extensive tumor burden. will continue Morphine extended release 30 mg BID and continue Dilaudid as breakthrough pain. Hyponatremia Hypokalemia Nausea/vomiting-much improved. Follow renal function stable at sodium is around 131-134. hypokalemia resolved. Constipation patient on various laxatives. Discharge Planning awaiting final recommendations by hospitality specialist. Abisai Mortensen MD Mar 28, 2017 13:22
--- NOTE | 2017-03-28 15:50 | HHI.IDPN ---
Subjective Subjective Remarks Ms. Jara is a 57-year-old female who was recently diagnosed with uterine carcinosarcoma approximately 4 days back she had a cystoscopy, proctoscopy and endocervical/endometrial mass biopsy. Patient has a history of chronic vaginal bleeding, weight loss, back pain. Proctosigmoidoscopy showed extrinsic compression of the bladder. Patient returned to the emergency department because of persistent nausea vomiting and constant sharp severe generalized abdominal as well as back pain. This was associated with burning upon urination, weakness, dizziness and feeling warm. Repeat CT of the abdomen and pelvis showed pelvic mass not significant change from days prior but the right ureter showed mild hydronephrosis and trace fluid in the cul-de-sac. Patient was initially at [facility] and was transferred to the main hospital. Currently she is on hospitalist service. She underwent a sepsis workup blood cultures on admission now are positive for Escherichia coli, Verigene with no CTX-M marker. Urine cultures are positive for GNR. ID consulted for mment of complicated UTI secondary to obstruction from large uterine mass. And some of my evaluation patient is currently admitted on 7 E. floor. She is maintaining her vital signs and appears to be clinically stable. She reports to me that she is going to have a stent placement. Medical records are reviewed and appears that Dr. Clifton as well as Dr. Stephens have seen the patient and there is a plan for stent placement tomorrow. Also it appears that patient has been offered palliative radiation therapy. Overnight events reviewed. Appears uncomfortable due to abdominal pain. Nauseous. Abdominal pain and discomfort decreased. No fevers. No rash No diarrhea Antibiotics Levaquin IV Lines Line sites with no e.o infection. Past Medical History reviewed Allergies: Uncoded Allergies: ADHESIVES (Allergy, Unknown, rash, 03/14/17) Objective . Vital Signs Date Time Temp Pulse Resp B/P (MAP) Pulse Ox O2 Delivery O2 Flow Rate FiO2 03/28/17 12:55 98.7 92 16 157/79 (105) 94 03/28/17 08:20 86 16 151/84 (106) 03/28/17 08:00 98.5 97 16 141/75 (97) 90 03/28/17 04:30 97.3 106 17 177/92 (120) 91 03/28/17 01:14 90 137/76 (96) 03/28/17 00:20 97.0 100 16 162/84 (110) 96 03/27/17 21:40 93 155/89 (111) 03/27/17 20:25 96.1 97 17 174/89 (117) 96 03/27/17 16:00 99.6 102 16 164/92 (116) 95 03/28/17 03/28/17 03/29/17 15:00 23:00 07:00 Intake Total 1005 ml Output Total 700 ml Balance 305 ml IV Total 1005 ml Output Urine Total 700 ml . Laboratory Tests Test 03/27/17 06:24 03/28/17 06:22 White Blood Count 22.2 TH/MM3 22.4 TH/MM3 Red Blood Count 3.95 MIL/MM3 4.10 MIL/MM3 Hemoglobin 11.2 GM/DL 11.7 GM/DL Hematocrit 33.3 % 34.6 % Mean Corpuscular Volume 84.3 FL 84.4 FL Mean Corpuscular Hemoglobin 28.5 PG 28.5 PG Mean Corpuscular Hemoglobin Concent 33.8 % 33.8 % Red Cell Distribution Width 13.5 % 13.8 % Platelet Count 533 TH/MM3 607 TH/MM3 Mean Platelet Volume 7.2 FL 7.7 FL Neutrophils (%) (Auto) 87.4 % 88.9 % Lymphocytes (%) (Auto) 5.5 % 4.6 % Monocytes (%) (Auto) 6.3 % 5.9 % Eosinophils (%) (Auto) 0.3 % 0.2 % Basophils (%) (Auto) 0.5 % 0.4 % Neutrophils # (Auto) 19.4 TH/MM3 19.9 TH/MM3 Lymphocytes # (Auto) 1.2 TH/MM3 1.0 TH/MM3 Monocytes # (Auto) 1.4 TH/MM3 1.3 TH/MM3 Eosinophils # (Auto) 0.1 TH/MM3 0.0 TH/MM3 Basophils # (Auto) 0.1 TH/MM3 0.1 TH/MM3 CBC Comment DIFF FINAL DIFF FINAL Differential Comment Laboratory Tests Test 03/27/17 06:24 03/28/17 06:22 Blood Urea Nitrogen 6 MG/DL 4 MG/DL Creatinine 0.54 MG/DL 0.54 MG/DL Random Glucose 126 MG/DL 112 MG/DL Calcium Level 7.8 MG/DL 8.2 MG/DL Sodium Level 131 MEQ/L 132 MEQ/L Potassium Level 3.3 MEQ/L 3.9 MEQ/L Chloride Level 97 MEQ/L 96 MEQ/L Carbon Dioxide Level 25.2 MEQ/L 27.4 MEQ/L Anion Gap 9 MEQ/L 9 MEQ/L Estimat Glomerular Filtration Rate 117 ML/MIN 117 ML/MIN Magnesium Level 1.9 MG/DL Microbiology Date/Time Source Procedure Growth Status 03/27/17 19:00 Blood Peripheral Aerobic Blood Culture - Preliminary NO GROWTH IN 1 DAY Resulted 03/27/17 19:00 Blood Peripheral Anaerobic Blood Culture - Preliminary NO GROWTH IN 1 DAY Resulted 03/27/17 18:55 Blood Peripheral Aerobic Blood Culture - Preliminary NO GROWTH IN 1 DAY Resulted 03/27/17 18:55 Blood Peripheral Anaerobic Blood Culture - Preliminary NO GROWTH IN 1 DAY Resulted Imaging Last Impressions Abdomen/Pelvis CT 03/18/17 1205 Signed Impressions: Service Date/Time: Saturday, March 18, 2017 13:02 - CONCLUSION: 1. Large heterogeneous pelvic mass is not significantly changed in size. 2. Right ureter is now obstructed distally. Mild hydronephrosis now seen and with associated swelling and delayed nephrogram of the right kidney. Retroperitoneal lymphadenopathy narrowing the 2 right renal arteries may also be contributing to the delayed nephrogram. 3. Metastatic retroperitoneal lymphadenopathy again noted, similar to before. Most of the nodes appear partly necrotic. 4. Trace free fluid now seen in the pelvic cul-de-sac. No perceptible abscess. 5. Subcentimeter hypodensity of the liver is unchanged and most likely a benign cyst. Mateo Costa MD Chest X-Ray 03/18/17 1155 Signed Impressions: Service Date/Time: Saturday, March 18, 2017 12:10 - CONCLUSION: Emphysema. No evidence of acute cardiopulmonary disease. Mateo Costa MD Physical Exam GENERAL:Thin built patient, in no apparent distress. SKIN: No rashes, ecchymoses or lesions. Cool and dry. HEAD: Atraumatic. Normocephalic. No temporal or scalp tenderness. EYES: Pupils equal round and reactive. Extraocular motions intact. No scleral icterus. No injection or drainage. ENT: Nose without bleeding, purulent drainage or septal hematoma. Throat without erythema, tonsillar hypertrophy or exudate. Uvula midline. Airway patent. NECK: Trachea midline. No JVD or lymphadenopathy. Supple, nontender, no meningeal signs. CARDIOVASCULAR: Regular rate and rhythm without murmurs, gallops, or rubs. RESPIRATORY: Clear to auscultation. Breath sounds equal bilaterally. No wheezes , rales, or rhonchi. GASTROINTESTINAL: Abdomen soft, nondistended. Right CVA tenderness. Diffuse abdominal tenderness. Bowel sounds hyperactive. Passing gas. MUSCULOSKELETAL: Extremities without clubbing, cyanosis, or edema. No joint tenderness, effusion, or edema noted. No calf tenderness. Negative Homans sign bilaterally. NEUROLOGICAL: Awake and alert. Grossly non focal Psych: cooperative IV line sites with no e.o infection. Assessment & Plan Remarks Sepsis present on admission. Escherichia coli gram-negative nino bacteremia likely secondary to UTI Complicated UTI with obstruction secondary to large uterine mass. Uterine cancer with retroperitoneal adenopathy likely advanced stage. Has been offered palliative radiation therapy. Persistent fevers: ? source control not achieved yet. Hopefully stent placement will help relieve the infected urine in hydronephrotic kidney. Hypoalbuminemia: nutritional, cancer. Recs Continue Levaquin IV for now (pt has ileus will keep IV for now) Follow cultures Follow clinically. CT Abd/pelvis today: Deja Freed to address constipation. Patient asked me questions about type of cancer, life expectancy etc. These are questions for oncology team. I notified rn discharge to have these addressed for her. Jenny Jackson MD Mar 28, 2017 15:50
[2017-03-28] MEDS: PANTOPRAZOLE SOD 40 MG DELAYED RELEASE TAB PO SCH (16:11)
[2017-03-28] MEDS: LEVOFLOXACIN 750 MG PREMIX INJ 150 ML IV SCH (16:11)
[2017-03-28] MEDS: MORPHINE SULFATE 30 MG CONTROLLED RELEASE TAB PO SCH (20:36)
[2017-03-28] MEDS: ONDANSETRON HCL 4 MG/2 ML VIAL IVP PRN (20:38)
[2017-03-28] MEDS: METOCLOPRAMIDE HCL 10 MG/2 ML VIAL IV PUSH PRN (21:33)
[2017-03-28 22:10] LABS: BLOOD, URINE SMALL (NEG); GLUCOSE,URINE NEG (NEG); KETONE, URINE NEG (NEG); NITRITE,URINE NEG (NEG); PH, URINE 6.5 (5.0-8.5); URINE COLOR LIGHT-YELLOW (YELLW/STRAW)
[2017-03-28 22:12] LABS: COMMENT (UR) CATH-CULT NOT IND; CULTURE IF INDICATED CATH CULTURE NOT IND
[2017-03-29] VITALS (7 sets, daily range): BP systolic 132–181; BP diastolic 73–99; PULSE 96–107; RESP 14–18; TEMP 96.5–99.8; O2SAT 91–95
[2017-03-29] MEDS: ENALAPRILAT 1.25 MG/ML VIAL IV PUSH PRN ×2 (01:29→14:31)
[2017-03-29] MEDS: HYDROmorphone HCL PF 1 MG/ML VIAL IV PRN ×6 (01:33→21:15)
[2017-03-29] MEDS: ONDANSETRON HCL 4 MG/2 ML VIAL IVP PRN ×2 (04:40→18:06)
[2017-03-29] MEDS: HALOPERIDOL 1 MG TAB PO SCH ×3 (07:28→18:10)
--- NOTE | 2017-03-29 08:41 | HHI.PR ---
Subjective Remarks Wine Pasteurizer Notes: This 57-year-old female presented to the ED on 03/18/17 with complaints of persistent nausea, vomiting and sharp abdominal pain with associated dysuria, weakness, dizziness, feeling warm. She is known to have recent diagnosis of uterine carcinosarcoma. She apparently 4 days prior to this presentation (03/14/17) had cystoscopy, proctoscopy, and endocervical/endometrial mass biopsy due to chronic vaginal bleeding. During the cystoscopy bladder never distended and there was concern that there could be a defect in the bladder possibly communicating with the tumor or peritoneal cavity.Proctosigmoidoscopy showed extrinsic compression which precluded evaluation beyond that point. * Repeat CT of abdomen pelvis shows pelvic mass not significant change but right ureter is not obstructed with mild hydronephrosis and trace fluid in the cul-de-sac. Dr. Clifton recommended transfer to the main hospital and admission to the medical service and consult to . Leukocytosis WBC 21.5. * At presentation patient endorsed difficulty breathing, noted to be tachypneic with crackles. Other ROS negative. * She was admitted for sepsis, UTI possible fistula. Patient on vancomycin, Zosyn, silverio cultures obtained. Hyponatremia felt to be secondary to vomiting. Started on Dilaudid for pain management, consulted for stenting or possible nephrostomy. Radiation oncology consulted. She also received Lasix for fluid overload. 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 Pathology =The uterus was completely replaced with tumor. Pathology returned poorly differentiated malignant neoplasm, necrotic and fibrotic tissue and pattern and staining suggests that this may be a carcinosarcoma. Dr. Clifton further notes that patient had been feeling poorly for many weeks though pain was significantly worse in the days prior to presentation as well as nausea and vomiting. * RU[employer]ER ST[employer] SUPERVISOR oncology further notes extensive disease, and discussions with the patient regarding difficult circumstances. Hysterectomy or other surgical intervention for tumor is not feasible as it has grown through the wall of the uterus and cervix and infiltrated into surrounding tissues all the way to pelvic sidewalls so much that it is causing obstruction right ureter. Furthermore there is extensive metastatic disease with retroperitoneal adenopathy including adenopathy near the r renal vessels that is causing some compromise to renal vessels. She was in favor of trying to palliate disease aggressively. Dr. Bang recommends best course of action would be to consider radiation therapy to pelvis to try to reduce tumor burden and prevent further ureteral obstruction and stop bleeding. Would also be prudent to consider radiation to adenopathy especially adenopathy causing compromise to renal vessels. After maximum palliative radiation has been given can discuss further any potential value of chemotherapy for metastatic disease. RU[employer]ER ST[employer] SUPERVISOR Oncology feels symptoms are probably directly or indirectly related to underlying disease process and resulting in a significant pain and anxiety which is so severe which is an contributing to nausea vomiting and inability to take food and fluids. * Urology consulted:Moderate right hydroureteronephrosis most likely secondary to extrinsic compression of the right ureter from the large pelvic mass/ retroperitoneal adenopathy. Plan for cystoscopy right retrograde pyelogram and long-term ureteral stent placement. Could consider eventual stent removal if favorable response to radiation. * Infectious disease consulted: Patient with Escherichia coli gram-negative Sukumar bacteremia, likely secondary to UTI., Complicated UTI with obstruction/ persistent fevers. Stent placement should help relieve hydronephrotic kidney infected in urine. Recommend continue Zosyn, Levaquin, repeat blood cultures. Follow cultures. * 03/21/17 cystoscopy, right retrograde, right stent insertion * Radiation oncology consulted: Radiation oncology notes aggressive palliation reasonable, radiation therapy may stop bleeding and help with pain control. Difficult to know how local control will be obtained. Discussion of potential systemic chemotherapy. Plan for simulation. * 03/22 ID added hepatitis, HIV screen. Continued on IV Levaquin, following cultures. Ensure added for nutrition. Some constipation. PT following, ambulatory with a rolling walker. [Hepatitis, HIV screen negative] * 03/24 patient continues to have nausea, hypercellular elevation, abdominal pain rating 10/10. Patient reports to medical attending pain is the same. Palliative care consulted to assist with pain control. Still no bowel movement currently on scheduled Reglan, Senna, milk of mag, docusate. She has prn lactulose, Dulcolax suppository available (which have not been used yet). Hospitalist Notes: Discussed with immigration law specialist today the patient works and she had the idea she will come back to work after this hospitalization does not realize her actual compromise, seen in her bedroom, started Morphine Extended release 30 mg BID as recommended by training and documentation specialist I agree will continue Dilaudid every 3 hours as breakthrough pain. She is the Rayon Winder of her who had recently two strokes, she wants to continue as a Full Code 03/29: as per ID specialist to continue Levaquin IV for now due to Ileus, following cultures, seen in her bedroom discussed with nurse Miss Paul Patient is having some abdominal pain and abdominal distention, asked for a new KUB, she wants everything done continue full code, has Nausea but no vomit or diarrhea. Objective Vital Signs Date Time Temp Pulse Resp B/P (MAP) Pulse Ox O2 Delivery O2 Flow Rate FiO2 03/29/17 05:06 16 03/29/17 04:35 96.5 96 17 145/73 (97) 95 03/29/17 00:35 99.8 105 18 174/90 (118) 91 03/28/17 21:36 16 03/28/17 20:35 96.3 101 17 174/83 (113) 96 03/28/17 16:00 98.3 110 16 165/84 (111) 90 03/28/17 12:55 98.7 92 16 157/79 (105) 94 I/O 03/28/17 03/28/17 03/28/17 03/29/17 03/29/17 03/29/17 06:59 14:59 22:59 06:59 14:59 22:59 Intake Total 480 ml 1005 ml 600 ml 480 ml Output Total 2300 ml 700 ml 500 ml 1500 ml Balance -1820 ml 305 ml 100 ml -1020 ml Intake Oral 480 ml 600 ml 480 ml IV Total 1005 ml Output Urine Total 2300 ml 700 ml 500 ml 1500 ml # Voids 3 Result Diagram: 03/28/17 0622 03/28/17 06 Imaging Last Impressions Abdomen/Pelvis CT 03/27/17 0000 Signed Impressions: Service Date/Time: Monday, March 27, 2017 20:57 - CONCLUSION: 1. Interval placement of right pigtail stent catheter with residual mild right hydronephrosis. 2. Large pelvic mass again noted without significant change. 3. Abnormal bowel gas pattern most consistent with an ileus. 4. New small bilateral pleural effusions and anasarca. Altaf Sanches MD Abdomen X-Ray 03/24/17 0000 Signed Impressions: Service Date/Time: Friday, March 24, 2017 12:07 - CONCLUSION: Mild colonic ileus. Harish Diaz MD Chest X-Ray 03/22/17 0000 Signed Impressions: Service Date/Time: Wednesday, March 22, 2017 21:33 - CONCLUSION: Persistent severe emphysematous change in the left upper lung with some compression/atelectasis at the left mid and lower lung. Mateo Harrington MD Procedures 03/21/2017 Cystoscopy, right retrograde pyelogram and moth exterminator right ureteral stent insertion Other Results Laboratory Tests Test 03/18/17 11:55 03/18/17 12:55 03/21/17 16:20 03/23/17 06:06 Prothrombin Time 12.7 SEC Prothromb Time International Ratio 1.1 RATIO Activated Partial Thromboplast Time 35.8 SEC Lactic Acid Level 1.3 mmol/L Urine Collection Type CATH Urine Bacteria MANY /hpf Protein Corrected Calcium 8.2 MG/DL Hepatitis A IgM Antibody NEGATIVE Hepatitis B Surface Antigen NEGATIVE Hepatitis B Core IgM Antibody NEGATIVE Hepatitis C Antibody NEGATIVE HIV (1&2) Antibody NEGATIVE Test 03/24/17 13:58 03/28/17 06:22 03/28/17 20:45 Blood Urea Nitrogen 5 MG/DL 4 MG/DL Creatinine 0.58 MG/DL 0.54 MG/DL Random Glucose 124 MG/DL 112 MG/DL Total Protein 6.0 GM/DL Albumin 1.8 GM/DL Calcium Level 7.9 MG/DL 8.2 MG/DL Alkaline Phosphatase 159 U/L Aspartate Amino Transf (AST/SGOT) 15 U/L Alanine Aminotransferase (ALT/SGPT) 11 U/L Total Bilirubin 0.4 MG/DL Sodium Level 136 MEQ/L 132 MEQ/L Potassium Level 3.1 MEQ/L 3.9 MEQ/L Chloride Level 100 MEQ/L 96 MEQ/L Carbon Dioxide Level 25.2 MEQ/L 27.4 MEQ/L White Blood Count 22.4 TH/MM3 Red Blood Count 4.10 MIL/MM3 Hemoglobin 11.7 GM/DL Hematocrit 34.6 % Mean Corpuscular Volume 84.4 FL Mean Corpuscular Hemoglobin 28.5 PG Mean Corpuscular Hemoglobin Concent 33.8 % Red Cell Distribution Width 13.8 % Platelet Count 607 TH/MM3 Mean Platelet Volume 7.7 FL Neutrophils (%) (Auto) 88.9 % Lymphocytes (%) (Auto) 4.6 % Monocytes (%) (Auto) 5.9 % Eosinophils (%) (Auto) 0.2 % Basophils (%) (Auto) 0.4 % Neutrophils # (Auto) 19.9 TH/MM3 Lymphocytes # (Auto) 1.0 TH/MM3 Monocytes # (Auto) 1.3 TH/MM3 Eosinophils # (Auto) 0.0 TH/MM3 Basophils # (Auto) 0.1 TH/MM3 CBC Comment DIFF FINAL Differential Comment Magnesium Level 1.9 MG/DL Anion Gap 9 MEQ/L Estimat Glomerular Filtration Rate 117 ML/MIN Urine Color LIGHT-YELLOW Urine Turbidity CLEAR Urine pH 6.5 Urine Specific [place] 1.006 Urine Protein NEG mg/dL Urine Glucose (UA) NEG mg/dL Urine Ketones NEG mg/dL Urine Occult Blood SMALL Urine Nitrite NEG Urine Bilirubin NEG Urine Urobilinogen LESS THAN 2.0 MG/DL Urine Leukocyte Esterase NEG Urine RBC 3 /hpf Urine WBC 2 /hpf Microscopic Urinalysis Comment CATH-CULT NOT IND Objective Remarks GENERAL: Alert, oriented 3, appears more comfortable today HEAD: Normocephalic. EYES: EOMI NECK: trachea midline. CARDIOVASCULAR: mildly tachycardic without murmurs RESPIRATORY: Breath sounds equal bilaterally. no wheezing or use of accessory muscles. GASTROINTESTINAL: Tender on palpation and distended. MUSCULOSKELETAL: moves extremities, some edema noted Medications and IVs Current Medications Medications (Trade) Dose Ordered Sig/Mata Route Start Time Stop Time Status Last Admin (NS Flush) 2 ml UNSCH PRN IV FLUSH 03/18/17 14:15 03/28/17 07:37 (NS Flush) 2 ml BID IV FLUSH 03/18/17 21:00 03/27/17 20:43 (Zofran Inj) 4 mg Q6H PRN IVP 03/18/17 14:15 03/29/17 04:40 (Narcan Inj) 0.4 mg UNSCH PRN IV 03/18/17 14:15 Potassium Chloride 10 meq/ Dextrose/Sodium Chloride 1,005 ml @ 75 mls/hr [id number] IV 03/19/17 13:30 03/28/17 23:56 (Tylenol) 650 mg Q4H PRN PO 03/19/17 16:45 03/21/17 17:30 Levofloxacin/ Dextrose 150 ml @ 100 mls/hr Q24H IV 03/19/17 17:00 03/28/17 16:11 (Dilaudid Pf Inj) 0.5 mg Q3H PRN IV 03/20/17 14:15 Future Hold (Dilaudid Pf Inj) 1 mg Q3H PRN IV 03/20/17 14:15 Future Hold 03/21/17 14:15 (Protonix) 40 mg Q24H PO 03/22/17 17:00 03/28/17 16:11 (Duoneb Neb) 1 ampule Q4HR NEB PRN NEB 03/22/17 19:30 (Sharon-Colace) 1 tab BID PO 03/22/17 21:00 03/28/17 20:36 (Milk Of Magnesia Liq) 30 ml Q12H PRN PO 03/22/17 19:30 03/23/17 13:26 (Senokot) 17.2 mg Q12H PRN PO 03/22/17 19:30 03/23/17 11:20 (Dulcolax Supp) 10 mg DAILY PRN RECTAL 03/22/17 19:30 (Lactulose Liq) 30 ml DAILY PRN PO 03/22/17 19:30 03/26/17 05:07 (Reglan Inj) 10 mg Q8H PRN IV PUSH 03/24/17 11:00 03/28/17 21:33 (Haldol) 1 mg Q6HR PO 03/24/17 18:00 03/29/17 07:28 (Dilaudid Pf Inj) 1 mg Q3H PRN IV 03/24/17 20:15 03/29/17 07:29 (Vasotec Inj) 1.25 mg Q6H PRN IV PUSH 03/27/17 19:30 03/29/17 01:29 (Apresoline) 10 mg Q6H PRN PO 03/27/17 19:30 (Oramorph Sr) 30 mg Q12HR PO 03/28/17 21:00 03/28/17 20:36 A/P Assessment and Plan 57-year-old female admitted secondary to UTI and sepsis. s/p right stent placement for obstructive uropathy. Escherichia coli UTI Escherichia coli bacteremia Continue Levaquin IV per infectious disease Urine and blood cultures are positive for Escherichia coli. Leukocytosis still present. as per ID specialist to continue IV Levaquin due to Ileus, following cultures. patient now distended will get new KUB Urinary obstruction Moderate right Hydronephrosis Uterine carcinosarcoma Vaginal bleeding Status post cystoscopy, long-term right ureteral stent insertion. Radiation treatments to decrease tumor burden. Palliative chemotherapy after radiation will be considered by gynecological oncology. Not a candidate for surgery due to extensive tumor burden. will continue Morphine extended release 30 mg BID and continue Dilaudid as breakthrough pain. Hyponatremia Hypokalemia Nausea/vomiting-much improved. Replaced Constipation/Ileus patient on various laxatives. get new KUB Discharge Planning Not yet cleared by Specialists. Patient wants everything done. Abisai Mortensen MD Mar 29, 2017 08:41
[2017-03-29] MEDS: SODIUM CHLORIDE 0.9% FLUSH 10 ML FLUSH IV FLUSH SCH ×2 (09:00→20:15)
[2017-03-29] MEDS: MORPHINE SULFATE 30 MG CONTROLLED RELEASE TAB PO SCH ×2 (09:18→20:17)
[2017-03-29] MEDS: DOCUSATE SODIUM 50 MG/SENNA 8.6 MG TAB PO SCH ×2 (09:18→20:17)
[2017-03-29] MEDS: LACTULOSE SYRUP 20 GM/30 ML CUP PO PRN (09:18)
--- NOTE | 2017-03-29 09:47 | PD.ONC.PN ---
Subjective Subjective Remarks obstetrician gynecologist/onc progress note Pt is resting in bed, states had a lot of pain last night Palliative Care following. Morphine SR 30mg and Dilaudid for breakthrough pain Discussed with patient that her cancer is considered poorly differentiated I explained these tumors are quite aggressive and readily reoccur. Our hope is that once radiation is started she could have improvement of symptoms as the tumor shrinks in size but do to the metastatic nature of her disease there would be the consideration of IV chemo once radiation is completed. I explained that the treatment we are recommending is most likely palliative and not curative. Mrs. Jara stated understanding and at this time she wishes to start radiation and see if she responds. Her did arrive to her bedside during out conversation and states he understands. Objective Data Date Time Temp Pulse Resp B/P (MAP) Pulse Ox O2 Delivery O2 Flow Rate FiO2 03/29/17 05:06 16 03/29/17 04:35 96.5 96 17 145/73 (97) 95 03/29/17 00:35 99.8 105 18 174/90 (118) 91 03/28/17 21:36 16 03/28/17 20:35 96.3 101 17 174/83 (113) 96 03/28/17 16:00 98.3 110 16 165/84 (111) 90 03/28/17 12:55 98.7 92 16 157/79 (105) 94 03/29/17 03/29/17 03/29/17 07:00 15:00 23:00 Intake Total 480 ml Output Total 1500 ml Balance -1020 ml Result Diagram: 03/28/1762103/28/1722 Laboratory Results Laboratory Tests Test 03/28/17 20:45 Urine Color LIGHT-YELLOW Urine Turbidity CLEAR Urine pH 6.5 Urine Specific [place] 1.006 Urine Protein NEG mg/dL Urine Glucose (UA) NEG mg/dL Urine Ketones NEG mg/dL Urine Occult Blood SMALL Urine Nitrite NEG Urine Bilirubin NEG Urine Urobilinogen LESS THAN 2.0 MG/DL Urine Leukocyte Esterase NEG Urine RBC 3 /hpf Urine WBC 2 /hpf Microscopic Urinalysis Comment CATH-CULT NOT IND Culture Results Microbiology Date/Time Source Procedure Growth Status 03/27/17 19:00 Blood Peripheral Aerobic Blood Culture - Preliminary NO GROWTH IN 1 DAY Resulted 03/27/17 19:00 Blood Peripheral Anaerobic Blood Culture - Preliminary NO GROWTH IN 1 DAY Resulted 03/27/17 18:55 Blood Peripheral Aerobic Blood Culture - Preliminary NO GROWTH IN 1 DAY Resulted 03/27/17 18:55 Blood Peripheral Anaerobic Blood Culture - Preliminary NO GROWTH IN 1 DAY Resulted Administered Medications Medications (Trade) Dose Ordered Sig/Mata Route PRN Reason Start Time Stop Time Status Last Admin Dose Admin Sodium Chloride (NS Flush) 2 ml UNSCH PRN IV FLUSH FLUSH AFTER USING IV ACCESS 03/18/17 14:15 03/28/17 07:37 Sodium Chloride (NS Flush) 2 ml BID IV FLUSH 03/18/17 21:00 03/27/17 20:43 Ondansetron HCl (Zofran Inj) 4 mg Q6H PRN IVP NAUSEA OR VOMITING 03/18/17 14:15 03/29/17 04:40 Potassium Chloride 10 meq/ Dextrose/Sodium Chloride 1,005 ml @ 75 mls/hr [id number] IV 03/19/17 13:30 03/28/17 23:56 Acetaminophen (Tylenol) 650 mg Q4H PRN PO TEMPERATURE > 100.5 F 03/19/17 16:45 03/21/17 17:30 Levofloxacin/ Dextrose 150 ml @ 100 mls/hr Q24H IV 03/19/17 17:00 03/28/17 16:11 Hydromorphone HCl (Dilaudid Pf Inj) 1 mg Q3H PRN IV Pain 6-10;if unable to take PO 03/20/17 14:15 Future Hold 03/21/17 14:15 Pantoprazole Sodium (Protonix) 40 mg Q24H PO 03/22/17 17:00 03/28/17 16:11 Senna/Docusate Sodium (Sharon-Colace) 1 tab BID PO 03/22/17 21:00 03/29/17 09:18 Magnesium Hydroxide (Milk Of Magnesia Liq) 30 ml Q12H PRN PO MILD - MODERATE CONSTIPATION 03/22/17 19:30 03/23/17 13:26 Sennosides (Senokot) 17.2 mg Q12H PRN PO MODERATE - SEVERE CONSTIPATION 03/22/17 19:30 03/23/17 11:20 Lactulose (Lactulose Liq) 30 ml DAILY PRN PO SEVERE CONSITIPATION 03/22/17 19:30 03/29/17 09:18 Metoclopramide HCl (Reglan Inj) 10 mg Q8H PRN IV PUSH SEE LABEL COMMENTS 03/24/17 11:00 03/28/17 21:33 Haloperidol (Haldol) 1 mg Q6HR PO 03/24/17 18:00 03/29/17 07:28 Hydromorphone HCl (Dilaudid Pf Inj) 1 mg Q3H PRN IV BREAKTHROUGH PAIN 03/24/17 20:15 03/29/17 07:29 Enalaprilat (Vasotec Inj) 1.25 mg Q6H PRN IV PUSH BP > 160/90 03/27/17 19:30 03/29/17 01:29 Morphine Sulfate (Oramorph Sr) 30 mg Q12HR PO 03/28/17 21:00 03/29/17 09:18 Objective Remarks GENERAL: frail SKIN: Warm and dry. HEAD: Normocephalic. EYES: No scleral icterus. No injection or drainage. NEUROLOGICAL: No obvious focal deficit. Awake, alert, and oriented x3. PSYCHIATRIC: Appropriate mood and affect; insight and judgment normal. 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 - Malignant neoplasm of uterus, part unspecified Status: Acute Plan: Dr. Ildefonso cramer and pt has had simulation and is awaiting starting radiation. She wishes to see if she will respond to radiation. palliative chemo after radiation will be considered, this will be done at outpatient from a obstetrician gynecologist/onc standpoint pt is OK for discharge once approved with rad/onc and med team not a surgical candidate d/t extensive tumor burden and tumor infiltrating into surrounding tissues, bladder and bowel. (2) Pelvic mass in female ICD Codes: R19.00 - Pelvic mass in female Status: Acute (3) Post-menopausal bleeding ICD Codes: N95.0 - Postmenopausal bleeding Status: Acute (4) UTI (urinary tract infection) ICD Codes: N39.0 - Urinary tract infection, site not specified Status: Acute Plan: LENNIE following and pt on Levaquin blood culture negative X 1 day continue with elevated WBC supportive care and continue to monitor labs per med team (5) Ileus ICD Codes: K56.7 - Ileus, unspecified Status: Acute Plan: per recent CT scan Reglan, Senna, milk of mag, docusate, all scheduled She has prn lactulose and Dulcolax suppository if needed. Problem Qualifiers (1) UTI (urinary tract infection): Sharif Randle Mar 29, 2017 09:47
[2017-03-29] MEDS: POTASSIUM CHLORIDE INJ 10 MEQ in DEXT 5%-NACL 0.9% 1000 ML INJ 1,000 ML IV SCH (14:12)
[2017-03-29] MEDS: METOCLOPRAMIDE HCL 10 MG/2 ML VIAL IV PUSH PRN (14:12)
--- NOTE | 2017-03-29 15:01 | HHI.HCPN ---
Reason for visit a. To assist with evaluation and management of symptoms including: pain, nausea b. To assist medical decision maker(s) with: better understanding of current medical conditions; weighing benefits/burdens of medical treatment options; making medical treatment decisions. Subjective/Interval History Patient seen today to follow-up on pain, goals. Long-acting morphine by mouth was added yesterday 30 mg every 12, in addition to prn Dilaudid IV. First dose 9 PM last night. Nursing reports increased nausea today no change in pain. Abdomen reported to be more distended today. Patient with very little by mouth intake today. Dual visit with Patel MCKEON. RN Beverly at bedside during visit as well. Patient is alert, oriented, appropriate and pleasant. She indicates she and her were able to talk to DIFFUSION FURNACE OPERATOR oncology LOT TECHNICIAN earlier today and all her questions were answered regarding prognosis etc. At time of my visit today she has had 2 doses of oral morphine. She indicates her pain feels no better today feels as if it takes several hours for it to begin to work and she still requires IV medication for breakthrough. She indicates nausea for much of the day with little relief from Zofran. She indicates severe pain today pain down to an 8 immediately after Dilaudid dose. KUB has been ordered by medical attending. Patient endorses her abdomen feels more distended and tight like it is going to "burst ". To my exam does appear visibly more taut, distended. Tender to touch. Hypoactive /intermittent bowel sounds to the right side only. PRN requirements: 4 doses 1mg hydromorphone iv today, 6 doses 1mg hydromorphone iv yesterday Patient endorsing still with inadequate pain control--KUB pending, likely she still has an ileus, in addition to large pelvic mass, ? Obstruction. 5 mg total IV Dilaudid = to 100mg oral morphine equivalents a day, she has used this on top of the now scheduled 30 mg long-acting oral morphine Q 12 hr (60mg day) . Could increase to 30mg MS long acting Q 8hr (= 90mg QD) which would still be below her total prn use. However PO intake increases her nausea which then increases her pain. Would cont to use IV dilaudid at this time; consider increased dosing to range 1mg to 1.5mg Q 3-4 HR prn pain. Advance Directives Living Will: Never completed Health Care Surrogate: Never completed Durable Power of Pet Nutrition Specialist: Never completed Objective Vital Signs Date Time Temp Pulse Resp B/P (MAP) Pulse Ox O2 Delivery O2 Flow Rate FiO2 03/29/17 11:00 97.0 16 176/85 (115) 93 03/29/17 10:18 16 03/29/17 08:00 98.0 96 14 157/74 (101) 95 03/29/17 05:06 16 03/29/17 04:35 96.5 96 17 145/73 (97) 95 03/29/17 00:35 99.8 105 18 174/90 (118) 91 03/28/17 20:35 96.3 101 17 174/83 (113) 96 03/28/17 16:00 98.3 110 16 165/84 (111) 90 Intake & Output 03/29/17 03/29/17 07:00 19:00 Intake Total 480 ml 1005 ml Output Total 1500 ml Balance -1020 ml 1005 ml Intake Oral 480 ml IV Total 1005 ml Output Urine Total 1500 ml Physical Exam CONSTITUTIONAL/GENERAL: This is an ill appearing pt, painful, grimacing TUBES/LINES/DRAINS:PIV upper extremity, Catheter CARDIOVASCULAR: Regular rate and rhythm without murmurs. No JVD. Peripheral pulses symmetric. Peripheral pulses palpable. RESPIRATORY/CHEST: Symmetric, unlabored respirations. On room air. Clear to auscultation. Breath sounds equal bilaterally. GASTROINTESTINAL: Abdomen firm, diffusely tender, distended. minimal palpation due to tenderness, firm, no readily palpable masses. Bowel sounds intermittent on rt abdomen GENITOURINARY: Without palpable bladder distension. Ortega catheter in place. NEUROLOGICAL: Awake and alert. Oriented 3, appropriate. InSight appears good. Motor and sensory grossly within normal limits. Follows commands. Cognitively sharp. Moves all extremities. PSYCHIATRIC: No obvious anxiety/depression. no apparent hallucinations or other psychotic thought process. Diagnostic Tests Laboratory Laboratory Tests Test 03/27/17 06:24 03/28/17 06:22 03/28/17 20:45 White Blood Count 22.2 TH/MM3 (4.0-11.0) 22.4 TH/MM3 (4.0-11.0) Red Blood Count 3.95 MIL/MM3 (4.00-5.30) 4.10 MIL/MM3 (4.00-5.30) Hemoglobin 11.2 GM/DL (11.6-15.3) 11.7 GM/DL (11.6-15.3) Hematocrit 33.3 % (35.0-46.0) 34.6 % (35.0-46.0) Mean Corpuscular Volume 84.3 FL (80.0-100.0) 84.4 FL (80.0-100.0) Mean Corpuscular Hemoglobin 28.5 PG (27.0-34.0) 28.5 PG (27.0-34.0) Mean Corpuscular Hemoglobin Concent 33.8 % (32.0-36.0) 33.8 % (32.0-36.0) Red Cell Distribution Width 13.5 % (11.6-17.2) 13.8 % (11.6-17.2) Platelet Count 533 TH/MM3 (150-450) 607 TH/MM3 (150-450) Mean Platelet Volume 7.2 FL (7.0-11.0) 7.7 FL (7.0-11.0) Neutrophils (%) (Auto) 87.4 % (16.0-70.0) 88.9 % (16.0-70.0) Lymphocytes (%) (Auto) 5.5 % (9.0-44.0) 4.6 % (9.0-44.0) Monocytes (%) (Auto) 6.3 % (0.0-8.0) 5.9 % (0.0-8.0) Eosinophils (%) (Auto) 0.3 % (0.0-4.0) 0.2 % (0.0-4.0) Basophils (%) (Auto) 0.5 % (0.0-2.0) 0.4 % (0.0-2.0) Neutrophils # (Auto) 19.4 TH/MM3 (1.8-7.7) 19.9 TH/MM3 (1.8-7.7) Lymphocytes # (Auto) 1.2 TH/MM3 (1.0-4.8) 1.0 TH/MM3 (1.0-4.8) Monocytes # (Auto) 1.4 TH/MM3 (0-0.9) 1.3 TH/MM3 (0-0.9) Eosinophils # (Auto) 0.1 TH/MM3 (0-0.4) 0.0 TH/MM3 (0-0.4) Basophils # (Auto) 0.1 TH/MM3 (0-0.2) 0.1 TH/MM3 (0-0.2) CBC Comment DIFF FINAL DIFF FINAL Differential Comment Blood Urea Nitrogen 6 MG/DL (7-18) 4 MG/DL (7-18) Creatinine 0.54 MG/DL (0.50-1.00) 0.54 MG/DL (0.50-1.00) Random Glucose 126 MG/DL (74-106) 112 MG/DL (74-106) Calcium Level 7.8 MG/DL (8.5-10.1) 8.2 MG/DL (8.5-10.1) Sodium Level 131 MEQ/L (136-145) 132 MEQ/L (136-145) Potassium Level 3.3 MEQ/L (3.5-5.1) 3.9 MEQ/L (3.5-5.1) Chloride Level 97 MEQ/L (98-107) 96 MEQ/L (98-107) Carbon Dioxide Level 25.2 MEQ/L (21.0-32.0) 27.4 MEQ/L (21.0-32.0) Anion Gap 9 MEQ/L (5-15) 9 MEQ/L (5-15) Estimat Glomerular Filtration Rate 117 ML/MIN (>89) 117 ML/MIN (>89) Magnesium Level 1.9 MG/DL (1.5-2.5) Urine Color LIGHT-YELLOW (YELLW/STRAW) Urine Turbidity CLEAR (CLEAR) Urine pH 6.5 (5.0-8.5) Urine Specific [place] 1.006 (1.002-1.035) Urine Protein NEG mg/dL (NEG-TRACE) Urine Glucose (UA) NEG mg/dL (NEG) Urine Ketones NEG mg/dL (NEG) Urine Occult Blood SMALL (NEG) Urine Nitrite NEG (NEG) Urine Bilirubin NEG (NEG) Urine Urobilinogen LESS THAN 2.0 MG/DL (LESS Urine Leukocyte Esterase NEG (NEG) Urine RBC 3 /hpf (0-3) Urine WBC 2 /hpf (0-5) Microscopic Urinalysis Comment CATH-CULT NOT IND Result Diagram: 9/5/17 0622 03/28/1722 Microbiology Microbiology Date/Time Source Procedure Growth Status 03/27/17 19:00 Blood Peripheral Aerobic Blood Culture - Preliminary NO GROWTH IN 2 DAYS Resulted 03/27/17 19:00 Blood Peripheral Anaerobic Blood Culture - Preliminary NO GROWTH IN 2 DAYS Resulted 03/27/17 18:55 Blood Peripheral Aerobic Blood Culture - Preliminary NO GROWTH IN 2 DAYS Resulted 03/27/17 18:55 Blood Peripheral Anaerobic Blood Culture - Preliminary NO GROWTH IN 2 DAYS Resulted Procedures 03/21/17 cystoscopy, right retrograde, right stent insertion Assessment and Plan Disease Oriented Problem List: (1) Pelvic mass in female (2) Carcinosarcoma of uterus (3) UTI (urinary tract infection) (4) Hydronephrosis, right (5) Hypoalbuminemia Symptom Scale: (1) Nausea (2) Pain, abdominal (3) Malnutrition (4) Constipation Pertinent Non-Medical Issues Psychosocial: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 x35 yrs. Originally from [place], is here with green card and legal resident. Has lived in [place] for 30+ years Spiritual: No particular jewish affiliation, prays on her own. Does not desire athletic coach support at this time Legal:Patient is currently alert, oriented and able to make her own decisions. She does not have advanced directives or HCS. Per [place] statutes if she became incapacitated her would be legal decision maker. Patient has verbally indicated today that she would want him to be her legal decision maker. Offered assistance with advanced directive, HCS during hospitalization, she does not wish to complete today palliative available to assist if she desires. Ethical issues impacting care: Important Contacts Nicolas Jara [phone] Silvia Davis friend [phone] . Prognosis Patient appears to have advanced malignancy process recent pathology indicative of uterine carcinosarcoma. She has expansive tumor burden which is not amenable to surgical intervention. She has been offered palliative radiation, for tumor burden reduction. Possible may be offered palliative chemotherapy depending on her performance status. She is very high risk for complications, decline related to advanced disease process and current sequelae she is experiencing secondary to pelvic mass. Appropriate for hospice if goals compatible. . Code Status: Full Code Plan * Legal decision maker:Patient is currently alert, oriented and able to make her own decisions. She does not have advanced directives or HCS. Per [place] statutes if she became incapacitated her would be legal decision maker. Patient has verbally indicated today that she would want him to be her legal decision maker. Offered assistance with advanced directive, HCS during hospitalization, she does not wish to complete today palliative available to assist if she desires. * Goals: Patient wants to have better pain control. She has had more discussion w DIFFUSION FURNACE OPERATOR oncology RE prognosis. Would plan to have ongoing pain discussions with patient in the coming days regarding prognosis, her overall condition, as well as options of hospice should she not desire further aggressive/invasive measures. If abdomen imaging worsening, and sx continue despite interventions, will need ongoing discussions RE goals-- as may be increasingly difficult to control pain and sx without lethargy and associated clinical decline-- if she ultimately does not WANT to pursue further palliative interventions such as radiation etc,or clinical conditions such that she cannot tolerate more tx, then would further discuss hospice option. * CODE STATUS: Full code * SYMPTOMS: --Constipation-multifactorial: Large abdominal mass, abdominal imaging+ ileus , no SBO. Recent use of PO opiates for the past 1 week.-Currently on bowel regimen, advised nursing to administer prn Dulcolax per rectum, Reglan has been added by medical attending , Relistor given x2 03/24, 03/25, with bowel movements , last BM yesterday. Monitor effectiveness. Could still be 2/2 opiate use, though suspect compounded by mass, consider Relistor every other day as needed. KUB pending --Nausea-multifactorial- Large abdominal mass, prev. abdominal imaging+ ileus , no SBO. Patient on antiemetics with refractory nausea likely 2/2 ileus, abdominal mass; nausea initially improved some on Haldol scheduled, having BMs. worsened again today. not responding to zofran. likely 2/2 mass- repeat KUB pending. --Abdominal pain--multifactorial: Large abdominal mass, abdominal imaging+ ileus, no SBO. Currently utilizing Percocet, Dilaudid for breakthrough pain . dilaudid requirements 5mg q day = to 100mg oral morphine equivalents a day. reducing this by 25% would be 75mg morphine a day. 30mg morphine LONG ACTING Q 12 hr (60mg total Q day) added 03/28 , with dilaudid 1mg Q 4 hr PRN breakthrough, PRN requirements: 4 doses 1mg hydromorphone iv today, 6 doses 1mg hydromorphone iv yesterday Patient endorsing still with inadequate pain control--KUB pending, likely she still has an ileus, in addition to large pelvic mass, ? Obstruction. 5 mg total IV Dilaudid = to 100mg oral morphine equivalents a day, she has used this on top of the now scheduled 30 mg long-acting oral morphine Q 12 hr (60mg day)~ [160mg oral morphine total] . Could increase to 30mg MS long acting to Q 8hr (= 90mg QD) which would still be below her total prn use; or to 60mg PO Q 12 which would total at 120 oral morphine equivalents QD. However PO intake increases her nausea which then increases her pain. Would cont to use IV dilaudid at this time; consider increased dosing to range 1mg to 1.5mg Q 3 HR prn pain. --Malnutrition-poor oral intake secondary to abdominal pain, nausea and constipation. + Weight loss, unknown amount. Hopefully oral in take can improve once ileus improves; likely would benefit from nutritional supplement/ ensure. Albumin 1.8. Oral intake improving slightly yesterday, able to tolerate without vomiting. today w worsened PO intake, nausea * Palliative care will continue to follow during hospital course as condition evolves, to assist patient/decision-maker with understanding of medical conditions, weighing benefits/burdens of treatment options, for clarification of goals of treatment. Additionally will assist with any symptoms of palliative concern . Attestation To help prompt me to consider important information that might be impacting today's encounter and assessment, information from prior notes written by myself or my colleagues may have been "brought forward" into today's note. My signature on this note, however, is an attestation that I personally performed the exam, history, and/or decision-making noted today, and, unless otherwise indicated, the interactions with patient, family, and staff as well as the review of records all occurred today. I also attest that the listed assessment and stated plan reflect my best clinical judgment today based on the combination of historical information, prior notes, and today's exam/ interactions. When time spent is documented, it refers only to time spent today by the signer, or if indicated, combined time spent today by collaborating physician/nurse practitioner. Kaylah Alvarado Mar 29, 2017 15:00
--- NOTE | 2017-03-29 16:37 | RADRPT ---
EXAM DATE/TIME: 03/29/2017 16:07 [facility] COMPARISON: CT ABDOMEN & PELVIS W CONTRAST, March 27, 2017, 20:57. ABDOMEN FLAT & UPRIGHT, March 24 7, 12:07. INDICATIONS : Abdomen pain with nausea. Patient has a known uterine cancer with large pelvic mass and right hydronephrosis. MEDICAL HISTORY : Uterine cancer. SURGICAL HISTORY : Renal stent. ENCOUNTER: Subsequent ACUITY: 1 day PAIN SCORE: 10/10 LOCATION: Abdomen. FINDINGS: There is diffuse gas in loops of small and large bowel. A loop of bowel in the right lower quadrant measures 8.2 cm in width, similar in appearance to CT scan performed 2 days ago. Double-J stent is p resent on the right side. Osseous structures are grossly intact. Visualized lower lungs are clear. CONCLUSION: Abdominal bowel gas pattern remains abnormal, but unchanged in severity in appearance when compared t o CT 03/27/17. Dominick Monroy MD on March 29, 2017 at 16:31 Board Certified Radiologist. This report was verified electronically.
[2017-03-29] MEDS: PANTOPRAZOLE SOD 40 MG DELAYED RELEASE TAB PO SCH (18:10)
[2017-03-29] MEDS: LEVOFLOXACIN 750 MG PREMIX INJ 150 ML IV SCH (18:11)
[2017-03-30] VITALS: BP 128/69; PULSE 102; RESP 18; TEMP 96.7; O2SAT 94
[2017-03-30] MEDS: HYDROmorphone HCL PF 1 MG/ML VIAL IV PRN ×5 (00:07→12:56)
[2017-03-30] MEDS: HALOPERIDOL 1 MG TAB PO SCH ×3 (00:07→12:52)
[2017-03-30] MEDS: METOCLOPRAMIDE HCL 10 MG/2 ML VIAL IV PUSH PRN ×2 (00:07→12:58)
[2017-03-30] MEDS: ONDANSETRON HCL 4 MG/2 ML VIAL IVP PRN ×2 (02:36→09:44)
[2017-03-30] MEDS: POTASSIUM CHLORIDE INJ 10 MEQ in DEXT 5%-NACL 0.9% 1000 ML INJ 1,000 ML IV SCH ×2 (03:22→16:30)
[2017-03-30 04:00] VITALS: BP 134/80; PULSE 95; RESP 16; TEMP 97.8; O2SAT 96
[2017-03-30 08:00] VITALS: BP 149/88; PULSE 101; RESP 20; TEMP 96.8; O2SAT 92
--- NOTE | 2017-03-30 08:44 | PD.ONC.PN ---
Subjective Subjective Remarks MENTAL HEALTH CONSULTANT/ONC progress note pt is resting in bed states pain is better controlled today still having nausea and vomiting able to keep water down. +reflux +flatus no BM I spoke with Dr. Fregoso and she is to start radiation today. I informed pt and her via telephone. I again explained that our hopes is that with radiation this central mass would shrink and help relieve some of her symptoms but there is always a chance that this would not happen...pt understands and wishes to move forwards with radiation. Depending on how she responds to radiation there is the consideration of IV chemo, once radiation is completed. Palliative Care following and we appreciate input and assisting with pain control. Objective Data Date Time Temp Pulse Resp B/P (MAP) Pulse Ox O2 Delivery O2 Flow Rate FiO2 03/30/17 04:00 97.8 95 16 134/80 (98) 96 03/30/17 00:00 96.7 102 18 128/69 (88) 94 03/29/17 20:00 96.5 105 18 132/73 (92) 94 03/29/17 16:00 98.3 107 16 180/93 (122) 94 03/29/17 14:33 105 181/99 (126) 03/29/17 11:00 97.0 16 176/85 (115) 93 03/29/17 10:18 16 03/30/17 03/30/17 03/30/17 06:59 14:59 22:59 Intake Total 240 ml Output Total 400 ml Balance -160 ml Result Diagram: 03/28/1722 03/28/17 0622 Culture Results Microbiology Date/Time Source Procedure Growth Status 03/27/17 19:00 Blood Peripheral Aerobic Blood Culture - Preliminary NO GROWTH IN 2 DAYS Resulted 03/27/17 19:00 Blood Peripheral Anaerobic Blood Culture - Preliminary NO GROWTH IN 2 DAYS Resulted 03/27/17 18:55 Blood Peripheral Aerobic Blood Culture - Preliminary NO GROWTH IN 2 DAYS Resulted 03/27/17 18:55 Blood Peripheral Anaerobic Blood Culture - Preliminary NO GROWTH IN 2 DAYS Resulted Administered Medications Medications (Trade) Dose Ordered Sig/Mata Route PRN Reason Start Time Stop Time Status Last Admin Dose Admin Sodium Chloride (NS Flush) 2 ml UNSCH PRN IV FLUSH FLUSH AFTER USING IV ACCESS 03/18/17 14:15 03/28/17 07:37 Sodium Chloride (NS Flush) 2 ml BID IV FLUSH 03/18/17 21:00 03/27/17 20:43 Ondansetron HCl (Zofran Inj) 4 mg Q6H PRN IVP NAUSEA OR VOMITING 03/18/17 14:15 03/30/17 02:36 Potassium Chloride 10 meq/ Dextrose/Sodium Chloride 1,005 ml @ 75 mls/hr [id number] IV 03/19/17 13:30 03/30/17 03:22 Acetaminophen (Tylenol) 650 mg Q4H PRN PO TEMPERATURE > 100.5 F 03/19/17 16:45 03/21/17 17:30 Levofloxacin/ Dextrose 150 ml @ 100 mls/hr Q24H IV 03/19/17 17:00 03/29/17 18:11 Hydromorphone HCl (Dilaudid Pf Inj) 1 mg Q3H PRN IV Pain 6-10;if unable to take PO 03/20/17 14:15 Future Hold 03/21/17 14:15 Pantoprazole Sodium (Protonix) 40 mg Q24H PO 03/22/17 17:00 03/29/17 18:10 Senna/Docusate Sodium (Sharon-Colace) 1 tab BID PO 03/22/17 21:00 03/29/17 20:17 Magnesium Hydroxide (Milk Of Magnesia Liq) 30 ml Q12H PRN PO MILD - MODERATE CONSTIPATION 03/22/17 19:30 03/23/17 13:26 Sennosides (Senokot) 17.2 mg Q12H PRN PO MODERATE - SEVERE CONSTIPATION 03/22/17 19:30 03/23/17 11:20 Lactulose (Lactulose Liq) 30 ml DAILY PRN PO SEVERE CONSITIPATION 03/22/17 19:30 03/29/17 09:18 Metoclopramide HCl (Reglan Inj) 10 mg Q8H PRN IV PUSH SEE LABEL COMMENTS 03/24/17 11:00 03/30/17 00:07 Haloperidol (Haldol) 1 mg Q6HR PO 03/24/17 18:00 03/30/17 06:30 Hydromorphone HCl (Dilaudid Pf Inj) 1 mg Q3H PRN IV BREAKTHROUGH PAIN 03/24/17 20:15 03/30/17 06:30 Enalaprilat (Vasotec Inj) 1.25 mg Q6H PRN IV PUSH BP > 160/90 03/27/17 19:30 03/29/17 14:31 Morphine Sulfate (Oramorph Sr) 30 mg Q12HR PO 03/28/17 21:00 03/29/17 20:17 Objective Remarks GENERAL: frail SKIN: Warm and dry. HEAD: Normocephalic. EYES: No scleral icterus. No injection or drainage. CARDIOVASCULAR: Regular rate and rhythm without murmurs. RESPIRATORY: Breath sounds equal bilaterally. No accessory muscle use. GASTROINTESTINAL: distended and tender to palpation, mostly upper abd, hyperactive BX x 4 EXTREMITIES: teds and scds NEUROLOGICAL: No obvious focal deficit. Awake, alert, and oriented x3. PSYCHIATRIC: Appropriate mood and affect; insight and judgment normal. 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 - Malignant neoplasm of uterus, part unspecified Status: Acute Plan: spoke with Dr. Fregoso and she is to start radiation today palliative chemo after radiation will be considered, this will be done at outpatient from a ed transporter/onc standpoint pt is OK for discharge once approved with rad/onc and med team not a surgical candidate d/t extensive tumor burden and tumor infiltrating into surrounding tissues, bladder and bowel. (2) Pelvic mass in female ICD Codes: R19.00 - Pelvic mass in female Status: Acute (3) Post-menopausal bleeding ICD Codes: N95.0 - Postmenopausal bleeding Status: Acute (4) UTI (urinary tract infection) ICD Codes: N39.0 - Urinary tract infection, site not specified Status: Acute Plan: ID following blood culture negative X 2 days continue with elevated WBC supportive care and continue to monitor labs per med team (5) Ileus ICD Codes: K56.7 - Ileus, unspecified Status: Acute Plan: per recent CT scan Reglan, Senna, milk of mag, docusate, all scheduled She has prn lactulose and Dulcolax suppository if needed. Attending Statement Discussed with Dr. Clifton and he is in agreement with plan. Problem Qualifiers (1) UTI (urinary tract infection): Sharif Randle Mar 30, 2017 08:44
[2017-03-30] MEDS: DOCUSATE SODIUM 50 MG/SENNA 8.6 MG TAB PO SCH ×2 (09:00→19:52)
[2017-03-30] MEDS: SODIUM CHLORIDE 0.9% FLUSH 10 ML FLUSH IV FLUSH SCH ×2 (09:00→19:52)
[2017-03-30] MEDS: MORPHINE SULFATE 30 MG CONTROLLED RELEASE TAB PO SCH ×2 (09:41→20:24)
--- NOTE | 2017-03-30 11:21 | HHI.PR ---
Subjective Remarks Software Security Consultant Notes: This 57-year-old female presented to the ED on 03/18/17 with complaints of persistent nausea, vomiting and sharp abdominal pain with associated dysuria, weakness, dizziness, feeling warm. She is known to have recent diagnosis of uterine carcinosarcoma. She apparently 4 days prior to this presentation (03/14/17) had cystoscopy, proctoscopy, and endocervical/endometrial mass biopsy due to chronic vaginal bleeding. During the cystoscopy bladder never distended and there was concern that there could be a defect in the bladder possibly communicating with the tumor or peritoneal cavity.Proctosigmoidoscopy showed extrinsic compression which precluded evaluation beyond that point. * Repeat CT of abdomen pelvis shows pelvic mass not significant change but right ureter is not obstructed with mild hydronephrosis and trace fluid in the cul-de-sac. Dr. Clifton recommended transfer to the main hospital and admission to the medical service and consult to . Leukocytosis WBC 21.5. * At presentation patient endorsed difficulty breathing, noted to be tachypneic with crackles. Other ROS negative. * She was admitted for sepsis, UTI possible fistula. Patient on vancomycin, Zosyn, silverio cultures obtained. Hyponatremia felt to be secondary to vomiting. Started on Dilaudid for pain management, consulted for stenting or possible nephrostomy. Radiation oncology consulted. She also received Lasix for fluid overload. * CORD SPLICER oncology Dr Clifton known to patient consulted; notes uterus completely replaced with tumor. Pathology =The uterus was completely replaced with tumor. Pathology returned poorly differentiated malignant neoplasm, necrotic and fibrotic tissue and pattern and staining suggests that this may be a carcinosarcoma. Dr. Clifton further notes that patient had been feeling poorly for many weeks though pain was significantly worse in the days prior to presentation as well as nausea and vomiting. * CORD SPLICER oncology further notes extensive disease, and discussions with the patient regarding difficult circumstances. Hysterectomy or other surgical intervention for tumor is not feasible as it has grown through the wall of the uterus and cervix and infiltrated into surrounding tissues all the way to pelvic sidewalls so much that it is causing obstruction right ureter. Furthermore there is extensive metastatic disease with retroperitoneal adenopathy including adenopathy near the r renal vessels that is causing some compromise to renal vessels. She was in favor of trying to palliate disease aggressively. Dr. Bang recommends best course of action would be to consider radiation therapy to pelvis to try to reduce tumor burden and prevent further ureteral obstruction and stop bleeding. Would also be prudent to consider radiation to adenopathy especially adenopathy causing compromise to renal vessels. After maximum palliative radiation has been given can discuss further any potential value of chemotherapy for metastatic disease. CORD SPLICER Oncology feels symptoms are probably directly or indirectly related to underlying disease process and resulting in a significant pain and anxiety which is so severe which is an contributing to nausea vomiting and inability to take food and fluids. * Urology consulted:Moderate right hydroureteronephrosis most likely secondary to extrinsic compression of the right ureter from the large pelvic mass/ retroperitoneal adenopathy. Plan for cystoscopy right retrograde pyelogram and long-term ureteral stent placement. Could consider eventual stent removal if favorable response to radiation. * Infectious disease consulted: Patient with Escherichia coli gram-negative Sukumar bacteremia, likely secondary to UTI., Complicated UTI with obstruction/ persistent fevers. Stent placement should help relieve hydronephrotic kidney infected in urine. Recommend continue Zosyn, Levaquin, repeat blood cultures. Follow cultures. * 03/21/17 cystoscopy, right retrograde, right stent insertion * Radiation oncology consulted: Radiation oncology notes aggressive palliation reasonable, radiation therapy may stop bleeding and help with pain control. Difficult to know how local control will be obtained. Discussion of potential systemic chemotherapy. Plan for simulation. * 03/22 ID added hepatitis, HIV screen. Continued on IV Levaquin, following cultures. Ensure added for nutrition. Some constipation. PT following, ambulatory with a rolling walker. [Hepatitis, HIV screen negative] * 03/24 patient continues to have nausea, hypercellular elevation, abdominal pain rating 10/10. Patient reports to medical attending pain is the same. Palliative care consulted to assist with pain control. Still no bowel movement currently on scheduled Reglan, Senna, milk of mag, docusate. She has prn lactulose, Dulcolax suppository available (which have not been used yet). Hospitalist Notes: Discussed with processing specialist today the patient works and she had the idea she will come back to work after this hospitalization does not realize her actual compromise, seen in her bedroom, started Morphine Extended release 30 mg BID as recommended by step down specialist I agree will continue Dilaudid every 3 hours as breakthrough pain. 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 03/30: Seen in her bedroom stable awaiting to start Radiation therapy today. no changes to anterior assessment, new KUB no changes from anterior. Objective Vital Signs Date Time Temp Pulse Resp B/P (MAP) Pulse Ox O2 Delivery O2 Flow Rate FiO2 03/30/17 08:00 96.8 101 20 149/88 (108) 92 03/30/17 04:00 97.8 95 16 134/80 (98) 96 03/30/17 00:00 96.7 102 18 128/69 (88) 94 03/29/17 20:00 96.5 105 18 132/73 (92) 94 03/29/17 16:00 98.3 107 16 180/93 (122) 94 03/29/17 14:33 105 181/99 (126) I/O 03/29/17 03/29/17 03/29/17 03/30/17 03/30/17 03/30/17 07:00 15:00 23:00 07:00 15:00 23:00 Intake Total 480 ml 1123 ml 240 ml 240 ml Output Total 1500 ml 425 ml 400 ml Balance -1020 ml 698 ml 240 ml -160 ml Intake Oral 480 ml 118 ml 240 ml 240 ml IV Total 1005 ml Output Urine Total 1500 ml 425 ml 400 ml # Bowel Movements 0 # Sanitary Pads 2 Pads Result Diagram: 03/28/17 0622 03/28/17 06 Imaging Last Impressions Abdomen X-Ray 03/29/17 0000 Signed Impressions: Service Date/Time: Wednesday, March 29, 2017 16:07 - CONCLUSION: Abdominal bowel gas pattern remains abnormal, but unchanged in severity in appearance when compared to CT 03/27/17. Dominick Monroy MD Abdomen/Pelvis CT 03/27/17 0000 Signed Impressions: Service Date/Time: Monday, March 27, 2017 20:57 - CONCLUSION: 1. Interval placement of right pigtail stent catheter with residual mild right hydronephrosis. 2. Large pelvic mass again noted without significant change. 3. Abnormal bowel gas pattern most consistent with an ileus. 4. New small bilateral pleural effusions and anasarca. Altaf Sanches MD Chest X-Ray 03/22/17 0000 Signed Impressions: Service Date/Time: Wednesday, March 22, 2017 21:33 - CONCLUSION: Persistent severe emphysematous change in the left upper lung with some compression/atelectasis at the left mid and lower lung. Mateo Harrington MD Procedures 03/21/2017 Cystoscopy, right retrograde pyelogram and intermediate frame tender right ureteral stent insertion Other Results Laboratory Tests Test 03/18/17 11:55 03/18/17 12:55 03/21/17 16:20 03/23/17 06:06 Prothrombin Time 12.7 SEC Prothromb Time International Ratio 1.1 RATIO Activated Partial Thromboplast Time 35.8 SEC Lactic Acid Level 1.3 mmol/L Urine Collection Type CATH Urine Bacteria MANY /hpf Protein Corrected Calcium 8.2 MG/DL Hepatitis A IgM Antibody NEGATIVE Hepatitis B Surface Antigen NEGATIVE Hepatitis B Core IgM Antibody NEGATIVE Hepatitis C Antibody NEGATIVE HIV (1&2) Antibody NEGATIVE Test 03/24/17 13:58 03/28/17 06:22 03/28/17 20:45 Blood Urea Nitrogen 5 MG/DL 4 MG/DL Creatinine 0.58 MG/DL 0.54 MG/DL Random Glucose 124 MG/DL 112 MG/DL Total Protein 6.0 GM/DL Albumin 1.8 GM/DL Calcium Level 7.9 MG/DL 8.2 MG/DL Alkaline Phosphatase 159 U/L Aspartate Amino Transf (AST/SGOT) 15 U/L Alanine Aminotransferase (ALT/SGPT) 11 U/L Total Bilirubin 0.4 MG/DL Sodium Level 136 MEQ/L 132 MEQ/L Potassium Level 3.1 MEQ/L 3.9 MEQ/L Chloride Level 100 MEQ/L 96 MEQ/L Carbon Dioxide Level 25.2 MEQ/L 27.4 MEQ/L White Blood Count 22.4 TH/MM3 Red Blood Count 4.10 MIL/MM3 Hemoglobin 11.7 GM/DL Hematocrit 34.6 % Mean Corpuscular Volume 84.4 FL Mean Corpuscular Hemoglobin 28.5 PG Mean Corpuscular Hemoglobin Concent 33.8 % Red Cell Distribution Width 13.8 % Platelet Count 607 TH/MM3 Mean Platelet Volume 7.7 FL Neutrophils (%) (Auto) 88.9 % Lymphocytes (%) (Auto) 4.6 % Monocytes (%) (Auto) 5.9 % Eosinophils (%) (Auto) 0.2 % Basophils (%) (Auto) 0.4 % Neutrophils # (Auto) 19.9 TH/MM3 Lymphocytes # (Auto) 1.0 TH/MM3 Monocytes # (Auto) 1.3 TH/MM3 Eosinophils # (Auto) 0.0 TH/MM3 Basophils # (Auto) 0.1 TH/MM3 CBC Comment DIFF FINAL Differential Comment Magnesium Level 1.9 MG/DL Anion Gap 9 MEQ/L Estimat Glomerular Filtration Rate 117 ML/MIN Urine Color LIGHT-YELLOW Urine Turbidity CLEAR Urine pH 6.5 Urine Specific [place] 1.006 Urine Protein NEG mg/dL Urine Glucose (UA) NEG mg/dL Urine Ketones NEG mg/dL Urine Occult Blood SMALL Urine Nitrite NEG Urine Bilirubin NEG Urine Urobilinogen LESS THAN 2.0 MG/DL Urine Leukocyte Esterase NEG Urine RBC 3 /hpf Urine WBC 2 /hpf Microscopic Urinalysis Comment CATH-CULT NOT IND Objective Remarks GENERAL: Alert, oriented 3, appears more comfortable today HEAD: Normocephalic. EYES: EOMI NECK: trachea midline. CARDIOVASCULAR: mildly tachycardic without murmurs RESPIRATORY: Breath sounds equal bilaterally. no wheezing or use of accessory muscles. GASTROINTESTINAL: Tender on palpation and distended. MUSCULOSKELETAL: moves extremities, some edema noted Medications and IVs Current Medications Medications (Trade) Dose Ordered Sig/Mata Route Start Time Stop Time Status Last Admin (NS Flush) 2 ml UNSCH PRN IV FLUSH 03/18/17 14:15 03/28/17 07:37 (NS Flush) 2 ml BID IV FLUSH 03/18/17 21:00 03/27/17 20:43 (Zofran Inj) 4 mg Q6H PRN IVP 03/18/17 14:15 03/30/17 09:44 (Narcan Inj) 0.4 mg UNSCH PRN IV 03/18/17 14:15 Potassium Chloride 10 meq/ Dextrose/Sodium Chloride 1,005 ml @ 75 mls/hr [id number] IV 03/19/17 13:30 03/30/17 03:22 (Tylenol) 650 mg Q4H PRN PO 03/19/17 16:45 03/21/17 17:30 Levofloxacin/ Dextrose 150 ml @ 100 mls/hr Q24H IV 03/19/17 17:00 03/29/17 18:11 (Dilaudid Pf Inj) 0.5 mg Q3H PRN IV 03/20/17 14:15 Future Hold (Dilaudid Pf Inj) 1 mg Q3H PRN IV 03/20/17 14:15 Future Hold 03/21/17 14:15 (Protonix) 40 mg Q24H PO 03/22/17 17:00 03/29/17 18:10 (Duoneb Neb) 1 ampule Q4HR NEB PRN NEB 03/22/17 19:30 (Sharon-Colace) 1 tab BID PO 03/22/17 21:00 03/30/17 09:00 (Milk Of Magnesia Liq) 30 ml Q12H PRN PO 03/22/17 19:30 03/23/17 13:26 (Senokot) 17.2 mg Q12H PRN PO 03/22/17 19:30 03/23/17 11:20 (Dulcolax Supp) 10 mg DAILY PRN RECTAL 03/22/17 19:30 (Lactulose Liq) 30 ml DAILY PRN PO 03/22/17 19:30 03/29/17 09:18 (Reglan Inj) 10 mg Q8H PRN IV PUSH 03/24/17 11:00 03/30/17 00:07 (Haldol) 1 mg Q6HR PO 03/24/17 18:00 03/30/17 06:30 (Dilaudid Pf Inj) 1 mg Q3H PRN IV 03/24/17 20:15 03/30/17 09:44 (Vasotec Inj) 1.25 mg Q6H PRN IV PUSH 03/27/17 19:30 03/29/17 14:31 (Apresoline) 10 mg Q6H PRN PO 03/27/17 19:30 (Oramorph Sr) 30 mg Q12HR PO 03/28/17 21:00 03/30/17 09:41 A/P Assessment and Plan 57-year-old female admitted secondary to UTI and sepsis. s/p right stent placement for obstructive uropathy. Escherichia coli UTI Escherichia coli bacteremia Continue Levaquin IV per infectious disease Urine and blood cultures are positive for Escherichia coli. Leukocytosis still present. as per ID specialist to continue IV Levaquin Urinary obstruction Moderate right Hydronephrosis Uterine carcinosarcoma Vaginal bleeding Status post cystoscopy, long-term right ureteral stent insertion. Radiation treatments to decrease tumor burden. Palliative chemotherapy after radiation will be considered by gynecological oncology. Not a candidate for surgery due to extensive tumor burden. will continue Morphine extended release 30 mg BID and continue Dilaudid as breakthrough pain. will start Radiation therapy today. Hyponatremia Hypokalemia Nausea/vomiting-much improved. Replaced Constipation/Ileus patient on various laxatives. new KUB no changes. DVT prophylaxis with SCDs. Discharge Planning Not yet cleared by Specialists. Patient wants everything done. Abisai Mortensen MD Mar 30, 2017 11:21
--- NOTE | 2017-03-30 13:58 | HHI.HCPN ---
Reason for visit a. To assist with evaluation and management of symptoms including: pain, nausea b. To assist medical decision maker(s) with: better understanding of current medical conditions; weighing benefits/burdens of medical treatment options; making medical treatment decisions. (Stephanie Jackson) Subjective/Interval History Patient seen today to follow-up on pain, goals. Patient seen and examined in room. Patient is alert, awake, oriented x 3, very pleasant. She is visibly uncomfortable and endorses her pain is a 8/10 despite recently receiving a PRN dose of IV dilaudid. She states her nausea has improved somewhat today and only had one episode earlier in the morning, however she is unable to drink or eat, she states she is nervous to take large sips of water because it makes her nauseous. PRN requirements: 8 doses 1mg hydromorphone IV in the past 24 hours. Plan to increase IV dilaudid today due to the patient's intolerance of PO intake to gain better pain control. Haldol increased to 2 mg q 6 to assist with nausea. Decadron 2mg IV BID for pain/nausea. (Stephanie Jackson) Advance Directives Living Will: Never completed Health Care Surrogate: Never completed Durable Power of Geographic Information Systems Director: Never completed (Stephanie Jackson) Objective Vital Signs Date Time Temp Pulse Resp B/P (MAP) Pulse Ox O2 Delivery O2 Flow Rate FiO2 03/30/17 08:00 96.8 101 20 149/88 (108) 92 03/30/17 04:00 97.8 95 16 134/80 (98) 96 03/30/17 00:00 96.7 102 18 128/69 (88) 94 03/29/17 20:00 96.5 105 18 132/73 (92) 94 03/29/17 16:00 98.3 107 16 180/93 (122) 94 03/29/17 14:33 105 181/99 (126) Intake & Output 03/30/17 03/30/17 07:00 19:00 Intake Total 480 ml Output Total 400 ml Balance 80 ml Intake Oral 480 ml Output Urine Total 400 ml # Sanitary Pads 2 Pads . Physical Exam CONSTITUTIONAL/GENERAL: This is an ill appearing pt, painful, grimacing TUBES/LINES/DRAINS:PIV upper extremity, pak catheter CARDIOVASCULAR: Regular rate and rhythm without murmurs. No JVD. Peripheral pulses symmetric. Peripheral pulses palpable. RESPIRATORY/CHEST: Symmetric, unlabored respirations. On room air. Clear to auscultation. Breath sounds equal bilaterally. GASTROINTESTINAL: Abdomen firm, tender, distended. Only light palpation was performed due to tenderness. Bowel sounds hypoactive. GENITOURINARY: Without palpable bladder distension. Pak catheter in place. NEUROLOGICAL: Awake and alert. Oriented 3, appropriate. Insight appears good. Motor and sensory grossly within normal limits. Follows commands. Cognitively sharp. Moves all extremities. PSYCHIATRIC: No obvious anxiety/depression. no apparent hallucinations or other psychotic thought process. ([facility],Stephanie MCKEON) Diagnostic Tests Laboratory Laboratory Tests Test 03/28/17 06:22 03/28/17 20:45 White Blood Count 22.4 TH/MM3 (4.0-11.0) Red Blood Count 4.10 MIL/MM3 (4.00-5.30) Hemoglobin 11.7 GM/DL (11.6-15.3) Hematocrit 34.6 % (35.0-46.0) Mean Corpuscular Volume 84.4 FL (80.0-100.0) Mean Corpuscular Hemoglobin 28.5 PG (27.0-34.0) Mean Corpuscular Hemoglobin Concent 33.8 % (32.0-36.0) Red Cell Distribution Width 13.8 % (11.6-17.2) Platelet Count 607 TH/MM3 (150-450) Mean Platelet Volume 7.7 FL (7.0-11.0) Neutrophils (%) (Auto) 88.9 % (16.0-70.0) Lymphocytes (%) (Auto) 4.6 % (9.0-44.0) Monocytes (%) (Auto) 5.9 % (0.0-8.0) Eosinophils (%) (Auto) 0.2 % (0.0-4.0) Basophils (%) (Auto) 0.4 % (0.0-2.0) Neutrophils # (Auto) 19.9 TH/MM3 (1.8-7.7) Lymphocytes # (Auto) 1.0 TH/MM3 (1.0-4.8) Monocytes # (Auto) 1.3 TH/MM3 (0-0.9) Eosinophils # (Auto) 0.0 TH/MM3 (0-0.4) Basophils # (Auto) 0.1 TH/MM3 (0-0.2) CBC Comment DIFF FINAL Differential Comment Blood Urea Nitrogen 4 MG/DL (7-18) Creatinine 0.54 MG/DL (0.50-1.00) Random Glucose 112 MG/DL (74-106) Calcium Level 8.2 MG/DL (8.5-10.1) Magnesium Level 1.9 MG/DL (1.5-2.5) Sodium Level 132 MEQ/L (136-145) Potassium Level 3.9 MEQ/L (3.5-5.1) Chloride Level 96 MEQ/L (98-107) Carbon Dioxide Level 27.4 MEQ/L (21.0-32.0) Anion Gap 9 MEQ/L (5-15) Estimat Glomerular Filtration Rate 117 ML/MIN (>89) Urine Color LIGHT-YELLOW (YELLW/STRAW) Urine Turbidity CLEAR (CLEAR) Urine pH 6.5 (5.0-8.5) Urine Specific [place] 1.006 (1.002-1.035) Urine Protein NEG mg/dL (NEG-TRACE) Urine Glucose (UA) NEG mg/dL (NEG) Urine Ketones NEG mg/dL (NEG) Urine Occult Blood SMALL (NEG) Urine Nitrite NEG (NEG) Urine Bilirubin NEG (NEG) Urine Urobilinogen LESS THAN 2.0 MG/DL (LESS Urine Leukocyte Esterase NEG (NEG) Urine RBC 3 /hpf (0-3) Urine WBC 2 /hpf (0-5) Microscopic Urinalysis Comment CATH-CULT NOT IND . (Stephanie Jackson) Result Diagram: 03/28/1762103/28/17621 Microbiology Microbiology Date/Time Source Procedure Growth Status 03/27/17 19:00 Blood Peripheral Aerobic Blood Culture - Preliminary NO GROWTH IN 3 DAYS Resulted 03/27/17 19:00 Blood Peripheral Anaerobic Blood Culture - Preliminary NO GROWTH IN 3 DAYS Resulted 03/27/17 18:55 Blood Peripheral Aerobic Blood Culture - Preliminary NO GROWTH IN 3 DAYS Resulted 03/27/17 18:55 Blood Peripheral Anaerobic Blood Culture - Preliminary NO GROWTH IN 3 DAYS Resulted Procedures 03/21/17 cystoscopy, right retrograde, right stent insertion (Lower,Stephanie Joya CL[employer] STOCK S[employer]TER) Assessment and Plan Disease Oriented Problem List: (1) Pelvic mass in female (2) Carcinosarcoma of uterus (3) UTI (urinary tract infection) (4) Hydronephrosis, right (5) Hypoalbuminemia Symptom Scale: (1) Nausea (2) Pain, abdominal (3) Malnutrition (4) Constipation Pertinent Non-Medical Issues Psychosocial: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 x35 yrs. Originally from [place], is here with green card and legal resident. Has lived in [place] for 30+ years Spiritual: No particular restorationist affiliation, prays on her own. Does not desire master rigger support at this time Legal:Patient is currently alert, oriented and able to make her own decisions. She does not have advanced directives or HCS. Per [place] statutes if she became incapacitated her would be legal decision maker. Patient has verbally indicated today that she would want him to be her legal decision maker. Offered assistance with advanced directive, HCS during hospitalization, she does not wish to complete today palliative available to assist if she desires. Ethical issues impacting care: Important Contacts Nicolas Jara [phone] Silvia Davis friend [phone] . Prognosis Patient appears to have advanced malignancy process recent pathology indicative of uterine carcinosarcoma. She has expansive tumor burden which is not amenable to surgical intervention. She has been offered palliative radiation, for tumor burden reduction. Possible may be offered palliative chemotherapy depending on her performance status. She is very high risk for complications, decline related to advanced disease process and current sequelae she is experiencing secondary to pelvic mass. Appropriate for hospice if goals compatible. . Code Status: Full Code Plan * Legal decision maker: Patient is currently alert, oriented and able to make her own decisions. She does not have advanced directives or HCS. Per [place] statutes if she became incapacitated her would be legal decision maker. Patient has verbally indicated today that she would want him to be her legal decision maker. Offered assistance with advanced directive, HCS during hospitalization, she does not wish to complete today palliative available to assist if she desires. * Goals: Immediate goal patient desires improved management of intractable nausea and pain. Would plan to have ongoing pain discussions with patient in the coming days regarding prognosis, her overall condition, as well as options of hospice should she not desire further aggressive/invasive measures. If sx continue to worsen despite interventions, will need ongoing discussions RE goals -- as may be increasingly difficult to control pain and sx without lethargy and associated clinical decline-- if she ultimately does not WANT to pursue further palliative interventions such as radiation etc,or clinical conditions such that she cannot tolerate more tx, then would further discuss hospice option. * CODE STATUS: Full code * Discussed patient with bedside nurse (Kaila) and Dr. Oscar. * SYMPTOMS: --Constipation-multifactorial: Large abdominal mass, abdominal imaging+ ileus , no SBO. Recent use of PO opiates for the past 1 week.-Currently on bowel regimen, advised nursing to administer prn Dulcolax per rectum, Reglan has been added by medical attending , Relistor given x2 03/24, 03/25, with bowel movements , last BM 03/28. Monitor effectiveness. Could still be 2/2 opiate use, though suspect compounded by mass, consider Relistor every other day as needed. --Nausea-multifactorial- Large abdominal mass, prev. abdominal imaging+ ileus , no SBO. Patient on antiemetics with refractory nausea likely 2/2 ileus, abdominal mass; nausea initially improved some on Haldol scheduled. 03/30/17: Increase haldol dose to 2mg q6 hrs. Start patient on low dose Decadron 2mg IV BID which may provide better symptom management of nausea, improved pain control and overall increased feeling of well being. --Abdominal pain--multifactorial: Large abdominal mass, abdominal imaging+ ileus, no SBO. On 03/28/17: Started on Oramorph SR 30mg PO q12 hours. Remains on Dilaudid 1mg IV q3 hours PRN. Patient required 8 doses of 1mg dilaudid PRN in the past 24 hours. Will increase PRN Dilaudid dose to 1.5mg q3 hours PRN. When patient's nausea is better managed would consider increasing long acting morphine dose while weaning from IV Dilaudid as the patient will need to be on PO pain medications prior to discharge. -- Malnutrition-poor oral intake secondary to abdominal pain, nausea and constipation. + Weight loss, unknown amount. Hopefully oral in take can improve once ileus improves; likely would benefit from nutritional supplement/ensure. Albumin 1.8. Oral intake improving slightly yesterday, able to tolerate without vomiting. today w worsened PO intake, nausea -- Palliative care will continue to follow during hospital course as condition evolves, to assist patient/decision-maker with understanding of medical conditions, weighing benefits/burdens of treatment options, for clarification of goals of treatment. Additionally will assist with any symptoms of palliative concern . (Stephanie Jackson) Attestation To help prompt me to consider important information that might be impacting today's encounter and assessment, information from prior notes written by myself or my colleagues may have been "brought forward" into today's note. My signature on this note, however, is an attestation that I personally performed the exam, history, and/or decision-making noted today, and, unless otherwise indicated, the interactions with patient, family, and staff as well as the review of records all occurred today. I also attest that the listed assessment and stated plan reflect my best clinical judgment today based on the combination of historical information, prior notes, and today's exam/ interactions. When time spent is documented, it refers only to time spent today by the signer, or if indicated, combined time spent today by collaborating physician/nurse practitioner. . (Stephanie Jackson) Stephanie Jackson Mar 30, 2017 13:58 Joya Melo Mar 30, 2017 14:00
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
[2017-03-30] MEDS: HYDROmorphone HCL PF 1 MG/ML VIAL IV PUSH PRN ×3 (16:19→23:08)
[2017-03-30] MEDS: DEXAMETHASONE SOD PHOS 4 MG/ML VIAL IV PUSH SCH (16:20)
[2017-03-30] MEDS: LEVOFLOXACIN 750 MG PREMIX INJ 150 ML IV SCH (16:20)
[2017-03-30] MEDS: PANTOPRAZOLE SOD 40 MG DELAYED RELEASE TAB PO SCH (16:21)
[2017-03-30 16:39] VITALS: BP 169/85; PULSE 99; RESP 21; TEMP 99.4; O2SAT 92
[2017-03-30] MEDS: HALOPERIDOL 2 MG TAB PO SCH ×2 (17:26→23:07)
[2017-03-30 20:00] VITALS: BP 134/78; PULSE 102; RESP 18; TEMP 98.7; O2SAT 91
[2017-03-31] VITALS (9 sets, daily range): BP systolic 115–161; BP diastolic 60–88; PULSE 94–170; RESP 14–20; TEMP 96.1–98.7; O2SAT 91–98
[2017-03-31] MEDS: HYDROmorphone HCL PF 1 MG/ML VIAL IV PUSH PRN ×5 (02:24→23:23)
[2017-03-31] MEDS: HALOPERIDOL 2 MG TAB PO SCH ×4 (05:23→23:20)
--- NOTE | 2017-03-31 07:36 | MB ---
cc: YAJAIRA CADENA MD DATE OF CONSULTATION 03/31/2017 REASON FOR CONSULTATION I again met with Yaquelin Jara, had a discussion regarding her findings. She is aware that she has a central sarcoma that seems be arising from the uterus. It has infiltrated into the parametria and extended to the pelvic sidewalls and there is metastatic adenopathy and the majority of her symptoms are caused either directly or indirectly from this underlying malignancy. Radiation palliative has been started into the pelvis and may be considered also to the para-aortic region where there is some narrowing of the renal vessels and to the suspicious adenopathy. She understands that the sarcoma is a difficult aggressive tumor and can be difficult to treat, but it is hoped that by reducing the size of the tumor can alleviate her symptoms. Her infection, elevated white count is likely due to an obstructive ureters. She has now been stented. Cultures are growing out E-coli which would be not an uncommon source of infection that involves the urinary tract. She has been afebrile now for several days despite her white count remaining elevated. Infectious disease is involved and we are grateful for the excellent care of many. Trying to clarify her wishes, she remains steadfast in the hope to try to suppress the cancer to the extent possible. She reports that she is receiving better pain control in the hospital as she was quite uncomfortable and quite troubled by pain as an outpatient and her main objectives are symptomatic relief and improvements have been made in that regard. Discussion ensued, questions were answered. She expressed a good understanding and agrees with the plan for palliative radiation, supportive care. MD CELSO Crespo/GM /7:06 AM /7:26 AM
[2017-03-31] MEDS: SODIUM CHLORIDE 0.9% FLUSH 10 ML FLUSH IV FLUSH PRN (08:21)
[2017-03-31] MEDS: SODIUM CHLORIDE 0.9% FLUSH 10 ML FLUSH IV FLUSH SCH ×2 (09:00→20:15)
[2017-03-31] MEDS: DOCUSATE SODIUM 50 MG/SENNA 8.6 MG TAB PO SCH ×2 (10:18→21:00)
[2017-03-31] MEDS: MORPHINE SULFATE 30 MG CONTROLLED RELEASE TAB PO SCH ×2 (10:18→21:02)
[2017-03-31] MEDS: DEXAMETHASONE SOD PHOS 4 MG/ML VIAL IV PUSH SCH ×2 (10:33→14:00)
--- NOTE | 2017-03-31 10:57 | HHI.PR ---
Subjective Remarks Metal Mixer Notes: This 57-year-old female presented to the ED on 03/18/17 with complaints of persistent nausea, vomiting and sharp abdominal pain with associated dysuria, weakness, dizziness, feeling warm. She is known to have recent diagnosis of uterine carcinosarcoma. She apparently 4 days prior to this presentation (03/14/17) had cystoscopy, proctoscopy, and endocervical/endometrial mass biopsy due to chronic vaginal bleeding. During the cystoscopy bladder never distended and there was concern that there could be a defect in the bladder possibly communicating with the tumor or peritoneal cavity.Proctosigmoidoscopy showed extrinsic compression which precluded evaluation beyond that point. * Repeat CT of abdomen pelvis shows pelvic mass not significant change but right ureter is not obstructed with mild hydronephrosis and trace fluid in the cul-de-sac. Dr. Clifton recommended transfer to the main hospital and admission to the medical service and consult to . Leukocytosis WBC 21.5. * At presentation patient endorsed difficulty breathing, noted to be tachypneic with crackles. Other ROS negative. * She was admitted for sepsis, UTI possible fistula. Patient on vancomycin, Zosyn, silverio cultures obtained. Hyponatremia felt to be secondary to vomiting. Started on Dilaudid for pain management, consulted for stenting or possible nephrostomy. Radiation oncology consulted. She also received Lasix for fluid overload. * DENTAL HYGIENE PROFESSOR oncology Dr Clifton known to patient consulted; notes uterus completely replaced with tumor. Pathology =The uterus was completely replaced with tumor. Pathology returned poorly differentiated malignant neoplasm, necrotic and fibrotic tissue and pattern and staining suggests that this may be a carcinosarcoma. Dr. Clifton further notes that patient had been feeling poorly for many weeks though pain was significantly worse in the days prior to presentation as well as nausea and vomiting. * DENTAL HYGIENE PROFESSOR oncology further notes extensive disease, and discussions with the patient regarding difficult circumstances. Hysterectomy or other surgical intervention for tumor is not feasible as it has grown through the wall of the uterus and cervix and infiltrated into surrounding tissues all the way to pelvic sidewalls so much that it is causing obstruction right ureter. Furthermore there is extensive metastatic disease with retroperitoneal adenopathy including adenopathy near the r renal vessels that is causing some compromise to renal vessels. She was in favor of trying to palliate disease aggressively. Dr. Bang recommends best course of action would be to consider radiation therapy to pelvis to try to reduce tumor burden and prevent further ureteral obstruction and stop bleeding. Would also be prudent to consider radiation to adenopathy especially adenopathy causing compromise to renal vessels. After maximum palliative radiation has been given can discuss further any potential value of chemotherapy for metastatic disease. DENTAL HYGIENE PROFESSOR Oncology feels symptoms are probably directly or indirectly related to underlying disease process and resulting in a significant pain and anxiety which is so severe which is an contributing to nausea vomiting and inability to take food and fluids. * Urology consulted:Moderate right hydroureteronephrosis most likely secondary to extrinsic compression of the right ureter from the large pelvic mass/ retroperitoneal adenopathy. Plan for cystoscopy right retrograde pyelogram and long-term ureteral stent placement. Could consider eventual stent removal if favorable response to radiation. * Infectious disease consulted: Patient with Escherichia coli gram-negative Sukumar bacteremia, likely secondary to UTI., Complicated UTI with obstruction/ persistent fevers. Stent placement should help relieve hydronephrotic kidney infected in urine. Recommend continue Zosyn, Levaquin, repeat blood cultures. Follow cultures. * 03/21/17 cystoscopy, right retrograde, right stent insertion * Radiation oncology consulted: Radiation oncology notes aggressive palliation reasonable, radiation therapy may stop bleeding and help with pain control. Difficult to know how local control will be obtained. Discussion of potential systemic chemotherapy. Plan for simulation. * 03/22 ID added hepatitis, HIV screen. Continued on IV Levaquin, following cultures. Ensure added for nutrition. Some constipation. PT following, ambulatory with a rolling walker. [Hepatitis, HIV screen negative] * 03/24 patient continues to have nausea, hypercellular elevation, abdominal pain rating 10/10. Patient reports to medical attending pain is the same. Palliative care consulted to assist with pain control. Still no bowel movement currently on scheduled Reglan, Senna, milk of mag, docusate. She has prn lactulose, Dulcolax suppository available (which have not been used yet). Hospitalist Notes: Discussed with applied behavior specialist today the patient works and she had the idea she will come back to work after this hospitalization does not realize her actual compromise, seen in her bedroom, started Morphine Extended release 30 mg BID as recommended by um specialist I agree will continue Dilaudid every 3 hours as breakthrough pain. 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 03/30: Seen in her bedroom stable awaiting to start Radiation therapy today. no changes to anterior assessment, new KUB no changes from anterior. 03/31: Stable in her bedroom, no nausea, vomit or diarrhea, eating her breakfast , discussed with SERIALS LIBRARIAN in the room, had the first Radiation therapy yesterday, continue Palliation Radiotherapy. Objective Vital Signs Date Time Temp Pulse Resp B/P (MAP) Pulse Ox O2 Delivery O2 Flow Rate FiO2 03/31/17 08:20 97.6 100 14 145/74 (97) 93 03/31/17 05:39 97 Nasal Cannula 2.00 03/31/17 04:00 97.0 106 18 127/85 (99) 92 03/31/17 00:00 97.6 112 20 127/87 (100) 91 03/30/17 20:00 98.7 102 18 134/78 (96) 91 03/30/17 16:39 99.4 99 21 169/85 (113) 92 I/O 03/30/17 03/30/17 03/30/17 03/31/17 03/31/17 03/31/17 07:00 15:00 23:00 07:00 15:00 23:00 Intake Total 240 ml 480 ml 240 ml Output Total 400 ml 300 ml 450 ml Balance -160 ml 180 ml 240 ml -450 ml Intake Oral 240 ml 480 ml 240 ml Output Urine Total 400 ml 300 ml 450 ml # Sanitary Pads 2 Pads Result Diagram: 03/28/17 0622 03/28/17 0622 Imaging Last Impressions Abdomen X-Ray 03/29/17 0000 Signed Impressions: Service Date/Time: Wednesday, March 29, 2017 16:07 - CONCLUSION: Abdominal bowel gas pattern remains abnormal, but unchanged in severity in appearance when compared to CT 03/27/17. Dominick Monroy MD Abdomen/Pelvis CT 03/27/17 0000 Signed Impressions: Service Date/Time: Monday, March 27, 2017 20:57 - CONCLUSION: 1. Interval placement of right pigtail stent catheter with residual mild right hydronephrosis. 2. Large pelvic mass again noted without significant change. 3. Abnormal bowel gas pattern most consistent with an ileus. 4. New small bilateral pleural effusions and anasarca. Altaf Sanches MD Chest X-Ray 03/22/17 0000 Signed Impressions: Service Date/Time: Wednesday, March 22, 2017 21:33 - CONCLUSION: Persistent severe emphysematous change in the left upper lung with some compression/atelectasis at the left mid and lower lung. Mateo Harrington MD Procedures 03/21/2017 Cystoscopy, right retrograde pyelogram and detention right ureteral stent insertion Other Results Laboratory Tests Test 03/18/17 11:55 03/18/17 12:55 03/21/17 16:20 03/23/17 06:06 Prothrombin Time 12.7 SEC Prothromb Time International Ratio 1.1 RATIO Activated Partial Thromboplast Time 35.8 SEC Lactic Acid Level 1.3 mmol/L Urine Collection Type CATH Urine Bacteria MANY /hpf Protein Corrected Calcium 8.2 MG/DL Hepatitis A IgM Antibody NEGATIVE Hepatitis B Surface Antigen NEGATIVE Hepatitis B Core IgM Antibody NEGATIVE Hepatitis C Antibody NEGATIVE HIV (1&2) Antibody NEGATIVE Test 03/24/17 13:58 03/28/17 06:22 03/28/17 20:45 Blood Urea Nitrogen 5 MG/DL 4 MG/DL Creatinine 0.58 MG/DL 0.54 MG/DL Random Glucose 124 MG/DL 112 MG/DL Total Protein 6.0 GM/DL Albumin 1.8 GM/DL Calcium Level 7.9 MG/DL 8.2 MG/DL Alkaline Phosphatase 159 U/L Aspartate Amino Transf (AST/SGOT) 15 U/L Alanine Aminotransferase (ALT/SGPT) 11 U/L Total Bilirubin 0.4 MG/DL Sodium Level 136 MEQ/L 132 MEQ/L Potassium Level 3.1 MEQ/L 3.9 MEQ/L Chloride Level 100 MEQ/L 96 MEQ/L Carbon Dioxide Level 25.2 MEQ/L 27.4 MEQ/L White Blood Count 22.4 TH/MM3 Red Blood Count 4.10 MIL/MM3 Hemoglobin 11.7 GM/DL Hematocrit 34.6 % Mean Corpuscular Volume 84.4 FL Mean Corpuscular Hemoglobin 28.5 PG Mean Corpuscular Hemoglobin Concent 33.8 % Red Cell Distribution Width 13.8 % Platelet Count 607 TH/MM3 Mean Platelet Volume 7.7 FL Neutrophils (%) (Auto) 88.9 % Lymphocytes (%) (Auto) 4.6 % Monocytes (%) (Auto) 5.9 % Eosinophils (%) (Auto) 0.2 % Basophils (%) (Auto) 0.4 % Neutrophils # (Auto) 19.9 TH/MM3 Lymphocytes # (Auto) 1.0 TH/MM3 Monocytes # (Auto) 1.3 TH/MM3 Eosinophils # (Auto) 0.0 TH/MM3 Basophils # (Auto) 0.1 TH/MM3 CBC Comment DIFF FINAL Differential Comment Magnesium Level 1.9 MG/DL Anion Gap 9 MEQ/L Estimat Glomerular Filtration Rate 117 ML/MIN Urine Color LIGHT-YELLOW Urine Turbidity CLEAR Urine pH 6.5 Urine Specific [place] 1.006 Urine Protein NEG mg/dL Urine Glucose (UA) NEG mg/dL Urine Ketones NEG mg/dL Urine Occult Blood SMALL Urine Nitrite NEG Urine Bilirubin NEG Urine Urobilinogen LESS THAN 2.0 MG/DL Urine Leukocyte Esterase NEG Urine RBC 3 /hpf Urine WBC 2 /hpf Microscopic Urinalysis Comment CATH-CULT NOT IND Objective Remarks GENERAL: Alert, oriented 3, appears more comfortable today HEAD: Normocephalic. EYES: EOMI NECK: trachea midline. CARDIOVASCULAR: mildly tachycardic without murmurs RESPIRATORY: Breath sounds equal bilaterally. no wheezing or use of accessory muscles. GASTROINTESTINAL: Tender on palpation and distended. MUSCULOSKELETAL: moves extremities, some edema noted Medications and IVs Current Medications Medications (Trade) Dose Ordered Sig/Mata Route Start Time Stop Time Status Last Admin (NS Flush) 2 ml UNSCH PRN IV FLUSH 03/18/17 14:15 03/28/17 07:37 (NS Flush) 2 ml BID IV FLUSH 03/18/17 21:00 03/27/17 20:43 (Zofran Inj) 4 mg Q6H PRN IVP 03/18/17 14:15 03/30/17 09:44 (Narcan Inj) 0.4 mg UNSCH PRN IV 03/18/17 14:15 Potassium Chloride 10 meq/ Dextrose/Sodium Chloride 1,005 ml @ 75 mls/hr [id number] IV 03/19/17 13:30 03/30/17 16:30 (Tylenol) 650 mg Q4H PRN PO 03/19/17 16:45 03/21/17 17:30 Levofloxacin/ Dextrose 150 ml @ 100 mls/hr Q24H IV 03/19/17 17:00 03/30/17 16:20 (Dilaudid Pf Inj) 0.5 mg Q3H PRN IV 03/20/17 14:15 Future Hold (Protonix) 40 mg Q24H PO 03/22/17 17:00 03/30/17 16:21 (Duoneb Neb) 1 ampule Q4HR NEB PRN NEB 03/22/17 19:30 03/31/17 05:33 (Sharon-Colace) 1 tab BID PO 03/22/17 21:00 03/31/17 10:18 (Milk Of Magnesia Liq) 30 ml Q12H PRN PO 03/22/17 19:30 03/23/17 13:26 (Senokot) 17.2 mg Q12H PRN PO 03/22/17 19:30 03/23/17 11:20 (Dulcolax Supp) 10 mg DAILY PRN RECTAL 03/22/17 19:30 (Lactulose Liq) 30 ml DAILY PRN PO 03/22/17 19:30 03/29/17 09:18 (Reglan Inj) 10 mg Q8H PRN IV PUSH 03/24/17 11:00 03/30/17 12:58 (Vasotec Inj) 1.25 mg Q6H PRN IV PUSH 03/27/17 19:30 03/29/17 14:31 (Apresoline) 10 mg Q6H PRN PO 03/27/17 19:30 (Oramorph Sr) 30 mg Q12HR PO 03/28/17 21:00 03/31/17 10:18 (Haldol) 2 mg Q6HR PO 03/30/17 18:00 03/31/17 05:23 (Dilaudid Pf Inj) 1.5 mg Q3H PRN IV PUSH 03/30/17 14:30 03/31/17 08:21 (Decadron Inj) 2 mg BID@0800,1400 IV PUSH 03/30/17 14:45 03/31/17 10:33 A/P Assessment and Plan 57-year-old female admitted secondary to UTI and sepsis. s/p right stent placement for obstructive uropathy. Escherichia coli UTI Escherichia coli bacteremia Continue Levaquin IV per infectious disease Urine and blood cultures are positive for Escherichia coli. Leukocytosis still present. as per ID specialist to continue IV Levaquin Urinary obstruction Moderate right Hydronephrosis Uterine carcinosarcoma Vaginal bleeding Status post cystoscopy, long-term right ureteral stent insertion. Radiation treatments to decrease tumor burden. Palliative chemotherapy after radiation will be considered by gynecological oncology. Not a candidate for surgery due to extensive tumor burden. will continue Morphine extended release 30 mg BID and continue Dilaudid as breakthrough pain. will started Palliation Radiotherapy yesterday. Hyponatremia stable. Hypokalemia replaced Nausea/vomiting-much improved. Constipation/Ileus patient on various laxatives. new KUB no changes. DVT prophylaxis with SCDs. Discharge Planning Not yet cleared by Specialists. Patient wants everything done. Abisai Mortensen MD Mar 31, 2017 10:57
[2017-03-31] MEDS: RESP: ALBUTEROL 2.5 MG/IPRATROPIUM 0.5 MG NEB (SCH) NEB ×3 (11:29→15:34)
--- NOTE | 2017-03-31 12:12 | HHI.HCPN ---
Reason for visit a. To assist with evaluation and management of symptoms including: pain, nausea b. To assist medical decision maker(s) with: better understanding of current medical conditions; weighing benefits/burdens of medical treatment options; making medical treatment decisions. (Stephanie Jackson) Subjective/Interval History Follow up today to evaluate pain management and nausea. Patient is alert, A&O x 3. She endorses her nausea has improved today and she was able to eat a portion of her breakfast, however she currently is experiencing "heartburn'. The patient states she is still experiencing pain and requiring PRN doses of hydromorphone, she states she has had some improvement in her symptoms overall. Patient received second dose of palliative radiation this morning. Dual visit with MIKE Ibrahim. PRN requirements today 03/31: 6 doses of 1.5 mg hydromorphone IV in the past 18 hours. Yesterday hydromorphone dose was increased by .5 mg, haldol was increased to 2 mg, and decadron was added. Patient states she has been experiencing "echoing" in her ears since yesterday afternoon and is inquiring if it could be related to the decadron. Conversation with the patient about the benefits of the decadron were explained but the option to discontinue the medication if the side effect of the "echoing" in her ears becomes unbearable was also provided. RN updated and will notify the medical team if the patient's symptoms worsen. (Stephanie Jackson) Advance Directives Living Will: Never completed Health Care Surrogate: Never completed Durable Power of Escort Car Driver: Never completed (Stephanie Jackson) Objective Vital Signs Date Time Temp Pulse Resp B/P (MAP) Pulse Ox O2 Delivery O2 Flow Rate FiO2 03/31/17 08:20 97.6 100 14 145/74 (97) 93 03/31/17 05:39 97 Nasal Cannula 2.00 03/31/17 04:00 97.0 106 18 127/85 (99) 92 03/31/17 00:00 97.6 112 20 127/87 (100) 91 03/30/17 20:00 98.7 102 18 134/78 (96) 91 03/30/17 16:39 99.4 99 21 169/85 (113) 92 Intake & Output 03/31/17 03/31/17 07:00 19:00 Intake Total 240 ml Output Total 450 ml Balance -210 ml Intake Oral 240 ml Output Urine Total 450 ml # Sanitary Pads 2 Pads . Physical Exam CONSTITUTIONAL/GENERAL: This is a thin female patient, very pleasant despite ongoing issues with pain secondary to inoperable pelvic mass TUBES/LINES/DRAINS: PIV right forearm, pak catheter CARDIOVASCULAR: Tachycardic, HR ranging 99-112. No murmurs. No JVD. Peripheral pulses symmetric. Peripheral pulses palpable. Edema +1 BLE. RESPIRATORY/CHEST: Symmetric, unlabored respirations.Clear to auscultation. Breath sounds equal bilaterally. On 2L NC today. GASTROINTESTINAL: Abdomen firm, tender, distended. Only light palpation was performed due to tenderness. Bowel sounds hypoactive. GENITOURINARY: Without palpable bladder distension. Pak catheter in place. NEUROLOGICAL: Awake and alert. Oriented 3, appropriate. Insight appears good. Motor and sensory grossly within normal limits. Follows commands. Cognitively sharp. Moves all extremities. PSYCHIATRIC: No obvious anxiety/depression. no apparent hallucinations or other psychotic thought process. (Stephanie Jackson) Diagnostic Tests Laboratory Laboratory Tests Test 03/28/17 20:45 Urine Color LIGHT-YELLOW (YELLW/STRAW) Urine Turbidity CLEAR (CLEAR) Urine pH 6.5 (5.0-8.5) Urine Specific Burke 1.006 (1.002-1.035) Urine Protein NEG mg/dL (NEG-TRACE) Urine Glucose (UA) NEG mg/dL (NEG) Urine Ketones NEG mg/dL (NEG) Urine Occult Blood SMALL (NEG) Urine Nitrite NEG (NEG) Urine Bilirubin NEG (NEG) Urine Urobilinogen LESS THAN 2.0 MG/DL (LESS Urine Leukocyte Esterase NEG (NEG) Urine RBC 3 /hpf (0-3) Urine WBC 2 /hpf (0-5) Microscopic Urinalysis Comment CATH-CULT NOT IND . (Stephanie Jackson) Result Diagram: 03/28/17 0622 03/28/17 0622 Imaging Last 72 hours Impressions Abdomen X-Ray 03/29/17 0000 Signed Impressions: Service Date/Time: Wednesday, March 29, 2017 16:07 - CONCLUSION: Abdominal bowel gas pattern remains abnormal, but unchanged in severity in appearance when compared to CT 03/27/17. 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 x35 yrs. Originally from [place], is here with green card and legal resident. Has lived in [place] for 30+ years Spiritual: No particular moravian affiliation, prays on her own. Does not desire senior analysis specialist support at this time Legal:Patient is currently alert, oriented and able to make her own decisions. She does not have advanced directives or HCS. Per [place] statutes if she became incapacitated her would be legal decision maker. Patient has verbally indicated that she would want him to be her legal decision maker. Offered assistance with advanced directive, HCS during hospitalization, she does not wish to complete at this time, palliative available to assist if she desires. Ethical issues impacting care: None known. Important Contacts Nicolas Jara [phone] Silvia Davis friend [phone] . Prognosis Patient appears to have advanced malignancy process recent pathology indicative of uterine carcinosarcoma. She has expansive tumor burden which is not amenable to surgical intervention. Currently receiving palliative peritoneal radiation started 03/30, current goal is to reduce pain and tumor burden. Possibly may be offered palliative chemotherapy depending on her performance status. She is very high risk for complications, decline related to advanced disease process and current sequelae she is experiencing secondary to pelvic mass. Appropriate for hospice if goals compatible in the future. . Code Status: Full Code Plan * Legal decision maker: Patient is currently alert, oriented and able to make her own decisions. She does not have advanced directives or HCS. Per [place] statutes if she became incapacitated her would be legal decision maker. Patient has verbally indicated today that she would want him to be her legal decision maker. Offered assistance with advanced directive, HCS during hospitalization, she does not wish to complete at this time palliative available to assist if she desires. * Goals: Patient's goal is gain better control over her pain and nausea. Ongoing monitoring/adjustments for pain and nausea. Received second round of palliative radiation today. * Would plan to have ongoing pain discussions with patient in the coming days regarding prognosis, her overall condition, as well as options of hospice should she not desire further aggressive/invasive measures. If sx continue to worsen despite interventions, will need ongoing discussions RE goals-- as may be increasingly difficult to control pain and sx without lethargy and associated clinical decline-- if she ultimately does not WANT to pursue further palliative interventions such as radiation etc,or clinical conditions such that she cannot tolerate more tx, then would further discuss hospice option. * CODE STATUS: Full code * Discussed patient with bedside nurse Jorge. * SYMPTOMS: --Constipation-multifactorial: Large abdominal mass, abdominal imaging+ ileus , no SBO. Recent use of PO opiates for the past 1 week.-Currently on bowel regimen, advised nursing to administer prn Dulcolax per rectum, Reglan has been added by medical attending , Relistor given x2 03/24, 03/25, with bowel movements , last BM 03/28. Monitor effectiveness. Could still be 2/2 opiate use, though suspect compounded by mass, consider Relistor every other day as needed. --Nausea-multifactorial- Large abdominal mass, prev. abdominal imaging+ ileus , no SBO. Patient on antiemetics with refractory nausea likely 2/2 ileus, abdominal mass; nausea initially improved some on Haldol scheduled. 03/30/17: Haldol dose increased to 2mg q6 hrs. Patient started on low dose Decadron 2mg IV BID which may provide better symptom management of nausea, improved pain control and overall increased feeling of well being. --Abdominal pain--multifactorial: Large abdominal mass, abdominal imaging+ ileus, no SBO. On 03/28/17: Started on Oramorph SR 30mg PO q12 hours. Increased PRN Dilaudid dose to 1.5mg q3 hours PRN on 03/31. When patient's nausea is better managed would consider increasing long acting morphine dose while weaning from IV Dilaudid as the patient will need to be on PO pain medications prior to discharge. 6 doses of 1.5 mg hydromorphone IV in the past 18 hours. 03/31: hydromorphone dose was increased by .5 mg, haldol was increased to 2 mg, and decadron was added. Patient states she has been experiencing "echoing" in her ears since yesterday afternoon and is inquiring if it could be related to the decadron. Conversation with the patient about the benefits of the decadron were explained but the option to discontinue the medication if the side effect of the "echoing" in her ears becomes unbearable was also provided. RN updated and will notify the medical team if the patient's symptoms worsen. -- Malnutrition-poor oral intake secondary to abdominal pain, nausea and constipation. + Weight loss, unknown amount. Hopefully oral in take can improve once ileus improves; likely would benefit from nutritional supplement/ensure. Albumin 1.8 on 03/24. Oral intake improving slightly today, able to tolerate a small breakfast without vomiting. -- Palliative care will continue to follow during hospital course as condition evolves, to assist patient/decision-maker with understanding of medical conditions, weighing benefits/burdens of treatment options, for clarification of goals of treatment. Additionally will assist with any symptoms of palliative concern . (Stephanie Jackson) Plan CONSTIPATION: Relistor given x2 03/24, 03/25, with bowel movements in the days following , last BM 03/28. still on bowel regimen. Could still be 2/2 opiate use , though suspect compounded by mass, consider adding Relistor every other day as needed. (Kaylah Alvarado) Attestation To help prompt me to consider important information that might be impacting today's encounter and assessment, information from prior notes written by myself or my colleagues may have been "brought forward" into today's note. My signature on this note, however, is an attestation that I personally performed the exam, history, and/or decision-making noted today, and, unless otherwise indicated, the interactions with patient, family, and staff as well as the review of records all occurred today. I also attest that the listed assessment and stated plan reflect my best clinical judgment today based on the combination of historical information, prior notes, and today's exam/ interactions. When time spent is documented, it refers only to time spent today by the signer, or if indicated, combined time spent today by collaborating physician/nurse practitioner. (Stephanie Jackson) Collaborating MD Comments DUAL visit louis MCKEON. Concur with above documentation. (Kaylah Alvarado) Stephanie Jackson Mar 31, 2017 12:12 Kaylah Alvarado Mar 31, 2017 12:42
[2017-03-31] MEDS ORDERED: METOPROLOL TARTRATE 25 MG TAB PO ONE (16:15)
[2017-03-31 16:51] LABS: CREATINE KINASE 119 U/L (26-192)
[2017-03-31 17:09] LABS: CKMB 8.4 NG/ML (0.5-3.6)
[2017-03-31] MEDS: PANTOPRAZOLE SOD 40 MG DELAYED RELEASE TAB PO SCH (17:39)
[2017-03-31] MEDS: LEVOFLOXACIN 750 MG PREMIX INJ 150 ML IV SCH (17:41)
[2017-03-31] MEDS: RESP: IPRATROPIUM 0.5 MG/2.5 ML NEB NEB SCH (20:14)
[2017-03-31] MEDS: POTASSIUM CHLORIDE INJ 10 MEQ in DEXT 5%-NACL 0.9% 1000 ML INJ 1,000 ML IV SCH (20:14)
[2017-03-31] MEDS: RESP: BUDESONIDE 0.5 MG/2 ML NEB NEB SCH (20:14)
[2017-03-31] MEDS: METOPROLOL TARTRATE 25 MG TAB PO SCH (21:02)
[2017-04-01] VITALS (7 sets, daily range): BP systolic 115–142; BP diastolic 63–74; PULSE 86–104; RESP 16–21; TEMP 96.3–98.7; O2SAT 95–98
[2017-04-01] MEDS: RESP: IPRATROPIUM 0.5 MG/2.5 ML NEB NEB SCH ×7 (04:00→23:54)
[2017-04-01] MEDS: HYDROmorphone HCL PF 1 MG/ML VIAL IV PUSH PRN ×2 (05:06→17:48)
[2017-04-01] MEDS: HALOPERIDOL 2 MG TAB PO SCH ×3 (05:07→17:47)
[2017-04-01] MEDS: POTASSIUM CHLORIDE INJ 10 MEQ in DEXT 5%-NACL 0.9% 1000 ML INJ 1,000 ML IV SCH (06:10)
[2017-04-01] MEDS: METOPROLOL TARTRATE 25 MG TAB PO SCH (07:55)
[2017-04-01] MEDS: MORPHINE SULFATE 30 MG CONTROLLED RELEASE TAB PO SCH ×2 (07:55→20:30)
[2017-04-01] MEDS: DOCUSATE SODIUM 50 MG/SENNA 8.6 MG TAB PO SCH ×2 (07:55→20:31)
[2017-04-01] MEDS: SODIUM CHLORIDE 0.9% FLUSH 10 ML FLUSH IV FLUSH SCH ×2 (08:00→20:32)
[2017-04-01] MEDS: DEXAMETHASONE SOD PHOS 4 MG/ML VIAL IV PUSH SCH ×2 (08:00→13:03)
[2017-04-01] MEDS: RESP: BUDESONIDE 0.5 MG/2 ML NEB NEB SCH ×3 (08:00→20:12)
--- NOTE | 2017-04-01 10:48 | HHI.PR ---
Subjective Remarks Accounting System Expert Notes: This 57-year-old female presented to the ED on 03/18/17 with complaints of persistent nausea, vomiting and sharp abdominal pain with associated dysuria, weakness, dizziness, feeling warm. She is known to have recent diagnosis of uterine carcinosarcoma. She apparently 4 days prior to this presentation (03/14/17) had cystoscopy, proctoscopy, and endocervical/endometrial mass biopsy due to chronic vaginal bleeding. During the cystoscopy bladder never distended and there was concern that there could be a defect in the bladder possibly communicating with the tumor or peritoneal cavity.Proctosigmoidoscopy showed extrinsic compression which precluded evaluation beyond that point. * Repeat CT of abdomen pelvis shows pelvic mass not significant change but right ureter is not obstructed with mild hydronephrosis and trace fluid in the cul-de-sac. Dr. Clifton recommended transfer to the main hospital and admission to the medical service and consult to . Leukocytosis WBC 21.5. * At presentation patient endorsed difficulty breathing, noted to be tachypneic with crackles. Other ROS negative. * She was admitted for sepsis, UTI possible fistula. Patient on vancomycin, Zosyn, silverio cultures obtained. Hyponatremia felt to be secondary to vomiting. Started on Dilaudid for pain management, consulted for stenting or possible nephrostomy. Radiation oncology consulted. She also received Lasix for fluid overload. * AIRLINE PILOT oncology Dr Clifton known to patient consulted; notes uterus completely replaced with tumor. Pathology =The uterus was completely replaced with tumor. Pathology returned poorly differentiated malignant neoplasm, necrotic and fibrotic tissue and pattern and staining suggests that this may be a carcinosarcoma. Dr. Clifton further notes that patient had been feeling poorly for many weeks though pain was significantly worse in the days prior to presentation as well as nausea and vomiting. * AIRLINE PILOT oncology further notes extensive disease, and discussions with the patient regarding difficult circumstances. Hysterectomy or other surgical intervention for tumor is not feasible as it has grown through the wall of the uterus and cervix and infiltrated into surrounding tissues all the way to pelvic sidewalls so much that it is causing obstruction right ureter. Furthermore there is extensive metastatic disease with retroperitoneal adenopathy including adenopathy near the r renal vessels that is causing some compromise to renal vessels. She was in favor of trying to palliate disease aggressively. Dr. Bang recommends best course of action would be to consider radiation therapy to pelvis to try to reduce tumor burden and prevent further ureteral obstruction and stop bleeding. Would also be prudent to consider radiation to adenopathy especially adenopathy causing compromise to renal vessels. After maximum palliative radiation has been given can discuss further any potential value of chemotherapy for metastatic disease. AIRLINE PILOT Oncology feels symptoms are probably directly or indirectly related to underlying disease process and resulting in a significant pain and anxiety which is so severe which is an contributing to nausea vomiting and inability to take food and fluids. * Urology consulted:Moderate right hydroureteronephrosis most likely secondary to extrinsic compression of the right ureter from the large pelvic mass/ retroperitoneal adenopathy. Plan for cystoscopy right retrograde pyelogram and long-term ureteral stent placement. Could consider eventual stent removal if favorable response to radiation. * Infectious disease consulted: Patient with Escherichia coli gram-negative Sukumar bacteremia, likely secondary to UTI., Complicated UTI with obstruction/ persistent fevers. Stent placement should help relieve hydronephrotic kidney infected in urine. Recommend continue Zosyn, Levaquin, repeat blood cultures. Follow cultures. * 03/21/17 cystoscopy, right retrograde, right stent insertion * Radiation oncology consulted: Radiation oncology notes aggressive palliation reasonable, radiation therapy may stop bleeding and help with pain control. Difficult to know how local control will be obtained. Discussion of potential systemic chemotherapy. Plan for simulation. * 03/22 ID added hepatitis, HIV screen. Continued on IV Levaquin, following cultures. Ensure added for nutrition. Some constipation. PT following, ambulatory with a rolling walker. [Hepatitis, HIV screen negative] * 03/24 patient continues to have nausea, hypercellular elevation, abdominal pain rating 10/10. Patient reports to medical attending pain is the same. Palliative care consulted to assist with pain control. Still no bowel movement currently on scheduled Reglan, Senna, milk of mag, docusate. She has prn lactulose, Dulcolax suppository available (which have not been used yet). Hospitalist Notes: Discussed with service center specialist today the patient works and she had the idea she will come back to work after this hospitalization does not realize her actual compromise, seen in her bedroom, started Morphine Extended release 30 mg BID as recommended by supply chain specialist I agree will continue Dilaudid every 3 hours as breakthrough pain. She is the [place] of her who had recently two strokes, she wants to continue as a Full Code 03/29: as per ID specialist to continue Levaquin IV for now due to Ileus, following cultures, seen in her bedroom discussed with nurse Miss Paul Patient is having some abdominal pain and abdominal distention, asked for a new KUB, she wants everything done continue full code, has Nausea but no vomit or diarrhea. 03/30: Seen in her bedroom stable awaiting to start Radiation therapy today. no changes to anterior assessment, new KUB no changes from anterior. 03/31: Stable in her bedroom, no nausea, vomit or diarrhea, eating her breakfast , discussed with DESTINATION IMAGINATION COORDINATOR in the room, had the first Radiation therapy yesterday, continue Palliation Radiotherapy. 04/01: The patient developed an episode of Supraventricular Tachycardia that improved fast after Rapid response team arrived, patient was seen in the presence of Rapid response nurse, she was stable and asymptomatic, Vital signs stable, given Metoprolol her Heart rate is been controlled below 100 per minute when given metoprolol in am was 84 will give Metoprolol PRN for Heart rate over 110 per minute and follow also seen in the presence of nurse Miss Ramírez at this seen with Mark, supportive care will continue with Albumin and follow. also asked her to help with activity, laying in bed all may get her condition worse. No nausea, vomit or diarrhea. Objective Vital Signs Date Time Temp Pulse Resp B/P (MAP) Pulse Ox O2 Delivery O2 Flow Rate FiO2 04/01/17 08:00 98.7 96 21 141/74 (96) 97 04/01/17 05:42 19 04/01/17 04:00 96.4 89 16 117/68 (84) 95 04/01/17 00:00 96.4 86 16 115/64 (81) 95 03/31/17 22:23 19 03/31/17 20:16 98 Nasal Cannula 3.00 03/31/17 20:00 96.3 94 18 115/60 (78) 97 03/31/17 16:10 98.7 119 16 136/85 (102) 96 03/31/17 15:35 97 Nasal Cannula 4.00 03/31/17 15:35 97.8 170 16 128/88 (101) 03/31/17 12:00 96.1 114 14 161/74 (103) 92 I/O 903/31/17 03/31/17 04/01/17 04/01/17 04/01/17 07:00 15:00 23:00 07:00 15:00 23:00 Intake Total 680 ml 240 ml 480 ml Output Total 450 ml 1150 ml 900 ml Balance -450 ml -470 ml 240 ml -420 ml Intake Oral 680 ml 240 ml 480 ml Output Urine Total 450 ml 1150 ml 900 ml # Bowel Movements 0 # Sanitary Pads 2 Pads Result Diagram: 03/28/17 0622 03/28/17 06 Imaging Last Impressions Abdomen X-Ray 03/29/17 0000 Signed Impressions: Service Date/Time: Wednesday, March 29, 2017 16:07 - CONCLUSION: Abdominal bowel gas pattern remains abnormal, but unchanged in severity in appearance when compared to CT 03/27/17. Dominick Monroy MD Abdomen/Pelvis CT 03/27/17 0000 Signed Impressions: Service Date/Time: Monday, March 27, 2017 20:57 - CONCLUSION: 1. Interval placement of right pigtail stent catheter with residual mild right hydronephrosis. 2. Large pelvic mass again noted without significant change. 3. Abnormal bowel gas pattern most consistent with an ileus. 4. New small bilateral pleural effusions and anasarca. Altaf Sanches MD Chest X-Ray 03/22/17 0000 Signed Impressions: Service Date/Time: Wednesday, March 22, 2017 21:33 - CONCLUSION: Persistent severe emphysematous change in the left upper lung with some compression/atelectasis at the left mid and lower lung. Mateo Harrington MD Procedures 03/21/2017 Cystoscopy, right retrograde pyelogram and merchandise executive right ureteral stent insertion Other Results Laboratory Tests Test 03/18/17 11:55 03/18/17 12:55 03/21/17 16:20 03/23/17 06:06 Prothrombin Time 12.7 SEC Prothromb Time International Ratio 1.1 RATIO Activated Partial Thromboplast Time 35.8 SEC Lactic Acid Level 1.3 mmol/L Urine Collection Type CATH Urine Bacteria MANY /hpf Protein Corrected Calcium 8.2 MG/DL Hepatitis A IgM Antibody NEGATIVE Hepatitis B Surface Antigen NEGATIVE Hepatitis B Core IgM Antibody NEGATIVE Hepatitis C Antibody NEGATIVE HIV (1&2) Antibody NEGATIVE Test 03/24/17 13:58 03/28/17 06:22 03/28/17 20:45 03/31/17 15:50 Blood Urea Nitrogen 5 MG/DL 4 MG/DL Creatinine 0.58 MG/DL 0.54 MG/DL Random Glucose 124 MG/DL 112 MG/DL Total Protein 6.0 GM/DL Albumin 1.8 GM/DL Calcium Level 7.9 MG/DL 8.2 MG/DL Alkaline Phosphatase 159 U/L Aspartate Amino Transf (AST/SGOT) 15 U/L Alanine Aminotransferase (ALT/SGPT) 11 U/L Total Bilirubin 0.4 MG/DL Sodium Level 136 MEQ/L 132 MEQ/L Potassium Level 3.1 MEQ/L 3.9 MEQ/L Chloride Level 100 MEQ/L 96 MEQ/L Carbon Dioxide Level 25.2 MEQ/L 27.4 MEQ/L White Blood Count 22.4 TH/MM3 Red Blood Count 4.10 MIL/MM3 Hemoglobin 11.7 GM/DL Hematocrit 34.6 % Mean Corpuscular Volume 84.4 FL Mean Corpuscular Hemoglobin 28.5 PG Mean Corpuscular Hemoglobin Concent 33.8 % Red Cell Distribution Width 13.8 % Platelet Count 607 TH/MM3 Mean Platelet Volume 7.7 FL Neutrophils (%) (Auto) 88.9 % Lymphocytes (%) (Auto) 4.6 % Monocytes (%) (Auto) 5.9 % Eosinophils (%) (Auto) 0.2 % Basophils (%) (Auto) 0.4 % Neutrophils # (Auto) 19.9 TH/MM3 Lymphocytes # (Auto) 1.0 TH/MM3 Monocytes # (Auto) 1.3 TH/MM3 Eosinophils # (Auto) 0.0 TH/MM3 Basophils # (Auto) 0.1 TH/MM3 CBC Comment DIFF FINAL Differential Comment Magnesium Level 1.9 MG/DL Anion Gap 9 MEQ/L Estimat Glomerular Filtration Rate 117 ML/MIN Urine Color LIGHT-YELLOW Urine Turbidity CLEAR Urine pH 6.5 Urine Specific [place] 1.006 Urine Protein NEG mg/dL Urine Glucose (UA) NEG mg/dL Urine Ketones NEG mg/dL Urine Occult Blood SMALL Urine Nitrite NEG Urine Bilirubin NEG Urine Urobilinogen LESS THAN 2.0 MG/DL Urine Leukocyte Esterase NEG Urine RBC 3 /hpf Urine WBC 2 /hpf Microscopic Urinalysis Comment CATH-CULT NOT IND Total Creatine Kinase 119 U/L Creatine Kinase MB 8.4 NG/ML Troponin I LESS THAN 0.02 NG/ML Objective Remarks GENERAL: Alert, oriented 3, appears more comfortable today HEAD: Normocephalic. EYES: EOMI NECK: trachea midline. CARDIOVASCULAR: mildly tachycardic without murmurs RESPIRATORY: Breath sounds equal bilaterally. no wheezing or use of accessory muscles. GASTROINTESTINAL: Tender on palpation and distended. MUSCULOSKELETAL: moves extremities, some edema noted Medications and IVs Current Medications Medications (Trade) Dose Ordered Sig/Mata Route Start Time Stop Time Status Last Admin (NS Flush) 2 ml UNSCH PRN IV FLUSH 03/18/17 14:15 03/28/17 07:37 (NS Flush) 2 ml BID IV FLUSH 03/18/17 21:00 03/31/17 20:15 (Zofran Inj) 4 mg Q6H PRN IVP 03/18/17 14:15 03/30/17 09:44 (Narcan Inj) 0.4 mg UNSCH PRN IV 03/18/17 14:15 Potassium Chloride 10 meq/ Dextrose/Sodium Chloride 1,005 ml @ 75 mls/hr [id number] IV 03/19/17 13:30 04/01/17 06:10 (Tylenol) 650 mg Q4H PRN PO 03/19/17 16:45 03/21/17 17:30 Levofloxacin/ Dextrose 150 ml @ 100 mls/hr Q24H IV 03/19/17 17:00 03/31/17 17:41 (Dilaudid Pf Inj) 0.5 mg Q3H PRN IV 03/20/17 14:15 Future Hold (Protonix) 40 mg Q24H PO 03/22/17 17:00 03/31/17 17:39 (Sharon-Colace) 1 tab BID PO 03/22/17 21:00 04/01/17 07:55 (Milk Of Magnesia Liq) 30 ml Q12H PRN PO 03/22/17 19:30 03/23/17 13:26 (Senokot) 17.2 mg Q12H PRN PO 03/22/17 19:30 03/23/17 11:20 (Dulcolax Supp) 10 mg DAILY PRN RECTAL 03/22/17 19:30 03/31/17 13:03 (Lactulose Liq) 30 ml DAILY PRN PO 03/22/17 19:30 03/29/17 09:18 (Reglan Inj) 10 mg Q8H PRN IV PUSH 03/24/17 11:00 03/30/17 12:58 (Vasotec Inj) 1.25 mg Q6H PRN IV PUSH 03/27/17 19:30 03/29/17 14:31 (Apresoline) 10 mg Q6H PRN PO 03/27/17 19:30 (Oramorph Sr) 30 mg Q12HR PO 03/28/17 21:00 04/01/17 07:55 (Haldol) 2 mg Q6HR PO 03/30/17 18:00 04/01/17 05:07 (Dilaudid Pf Inj) 1.5 mg Q3H PRN IV PUSH 03/30/17 14:30 04/01/17 05:06 (Decadron Inj) 2 mg BID@0800,1400 IV PUSH 03/30/17 14:45 04/01/17 08:00 (Atrovent Neb) 0.5 mg Q4HR NEB NEB 03/31/17 16:00 03/31/17 20:14 (Pulmicort Respule Neb) 0.5 mg Q12HR NEB NEB 03/31/17 20:00 03/31/17 20:14 (Lopressor) 12.5 mg Q12HR PO 03/31/17 21:00 04/01/17 07:55 A/P Assessment and Plan 57-year-old female admitted secondary to UTI and sepsis. s/p right stent placement for obstructive uropathy. Escherichia coli UTI Escherichia coli bacteremia Continue Levaquin IV per infectious disease Urine and blood cultures are positive for Escherichia coli. Leukocytosis still present. as per ID specialist to continue IV Levaquin, continue on Levaquin today. Urinary obstruction Moderate right Hydronephrosis Uterine carcinosarcoma Vaginal bleeding Status post cystoscopy, long-term right ureteral stent insertion. Radiation treatments to decrease tumor burden. Palliative chemotherapy after radiation will be considered by gynecological oncology. Not a candidate for surgery due to extensive tumor burden. will continue Morphine extended release 30 mg BID and continue Dilaudid as breakthrough pain. will started Palliation Radiotherapy yesterday. Hyponatremia stable. Hypokalemia replaced Nausea/vomiting-much improved. Constipation/Ileus patient on various laxatives. new KUB no changes. Anasarca secondary to her basal pathology Hypoalbuminemia will add some Albumin IV explained to the patient and nurse the Pathophysiology of this condition in [place] words, but I think they do not understand the condition she only wants to improve, encourage activity. and change in position. Very Poor Prognosis. follow laboratory in am tomorrow. DVT prophylaxis with SCDs. Discharge Planning Not yet cleared by Specialists. Patient wants everything done. Abisai Mortensen MD Apr 01, 2017 10:48
[2017-04-01] MEDS: ALBUMIN HUMAN 25% 25 GM/100 ML BAGP IV SCH (13:00)
--- NOTE | 2017-04-01 13:58 | EKG ---
Date Performed: 03/31/2017 Time Performed: 15:51:13 PTAGE: 57 years EKG: Atrial flutter (vs. supraventricular tachycardia) MODERATE ST DEPRESSION ABNORMAL QRS-T ANG LE ABNORMAL ECG PREVIOUS TRACING : 03/09/2017 11.10 Since prior tracing, the narrow complex tachycardia has rep laced Sinus rhythm . DOCTOR: Lew Becerril Interpretating Date/Time 04/01/2017 13:57:48
[2017-04-01] MEDS: LEVOFLOXACIN 750 MG PREMIX INJ 150 ML IV SCH (17:47)
[2017-04-01] MEDS: PANTOPRAZOLE SOD 40 MG DELAYED RELEASE TAB PO SCH (17:48)
[2017-04-01] MEDS ORDERED: METOPROLOL TARTRATE 25 MG TAB PO PRN (21:00)
[2017-04-02] VITALS (11 sets, daily range): BP systolic 140–187; BP diastolic 73–87; PULSE 95–107; RESP 18–20; TEMP 96.3–98.1; O2SAT 95–99
[2017-04-02] MEDS: POTASSIUM CHLORIDE INJ 10 MEQ in DEXT 5%-NACL 0.9% 1000 ML INJ 1,000 ML IV SCH (00:01)
[2017-04-02] MEDS: HALOPERIDOL 2 MG TAB PO SCH ×4 (00:01→17:26)
[2017-04-02] MEDS: ALBUMIN HUMAN 25% 25 GM/100 ML BAGP IV SCH ×2 (00:01→10:51)
[2017-04-02] MEDS: HYDROmorphone HCL PF 1 MG/ML VIAL IV PUSH PRN ×5 (00:10→22:39)
[2017-04-02] MEDS: RESP: IPRATROPIUM 0.5 MG/2.5 ML NEB NEB SCH ×5 (03:52→20:26)
[2017-04-02] MEDS: SODIUM CHLORIDE 0.9% FLUSH 10 ML FLUSH IV FLUSH SCH ×2 (09:00→20:41)
[2017-04-02 09:06] LABS: AUTOMATED NEUTROPHIL # 17.6 TH/MM3 (1.8-7.7); BASOPHIL % 0.2 % (0.0-2.0); EOSINOPHIL % 0.1 % (0.0-4.0); HEMO FLAGS DIFF FINAL; LYMPHOCYTE # 0.8 TH/MM3 (1.0-4.8); MEAN CELL VOLUME 83.9 FL (80.0-100.0); MEAN CORPUSCULAR HEMOGLOBIN 27.8 PG (27.0-34.0); MEAN CORPUSCULAR HGB CONC 33.1 % (32.0-36.0); MONO % 4.5 % (0.0-8.0); NEUT % 91.2 % (16.0-70.0); PLATELET COUNT 570 TH/MM3 (150-450); RED BLOOD COUNT 3.33 MIL/MM3 (4.00-5.30); WHITE BLOOD COUNT 19.3 TH/MM3 (4.0-11.0)
[2017-04-02 09:18] LABS: BICARBONATE 27.5 MEQ/L (21.0-32.0); MAGNESIUM 1.8 MG/DL (1.5-2.5); POTASSIUM 3.7 MEQ/L (3.5-5.1)
[2017-04-02] MEDS: MORPHINE SULFATE 30 MG CONTROLLED RELEASE TAB PO SCH ×2 (09:30→20:40)
[2017-04-02] MEDS: DEXAMETHASONE SOD PHOS 4 MG/ML VIAL IV PUSH SCH ×2 (09:31→13:25)
[2017-04-02] MEDS: DOCUSATE SODIUM 50 MG/SENNA 8.6 MG TAB PO SCH ×2 (09:31→20:40)
--- NOTE | 2017-04-02 10:02 | HHI.PR ---
Subjective Remarks The pt said that her breathing was getting worse. She requested her home inhalers. She complained of abdominal and leg pain s/t swelling. Objective Vitals Vital Signs Date Time Temp Pulse Resp B/P (MAP) Pulse Ox O2 Delivery O2 Flow Rate FiO2 04/02/17 09:03 97 Nasal Cannula 4.00 04/02/17 08:00 98.1 106 18 187/77 (113) 96 04/02/17 06:18 18 04/02/17 04:00 98.1 101 18 140/78 (98) 96 04/02/17 00:00 96.7 100 18 141/73 (95) 98 04/01/17 22:00 19 04/01/17 20:14 98 Nasal Cannula 4.00 04/01/17 20:00 96.3 104 18 134/66 (88) 97 04/01/17 16:31 98.3 92 21 128/70 (89) 95 04/01/17 12:00 96.8 89 20 142/63 (89) 95 I/O 04/01/17 04/01/17 04/01/17 04/02/17 04/02/17 04/02/17 07:00 15:00 23:00 07:00 15:00 23:00 Intake Total 480 ml 720 ml 480 ml 2322 ml Output Total 900 ml 1400 ml 1300 ml 1000 ml Balance -420 ml -680 ml -820 ml 1322 ml Intake Oral 480 ml 720 ml 480 ml 1200 ml IV Total 1122 ml Output Urine Total 900 ml 1400 ml 1300 ml 1000 ml # Sanitary Pads 2 Pads Result Diagram: 04/02/17 0654 04/02/17 0654 Imaging Last Impressions Abdomen X-Ray 03/29/17 0000 Signed Impressions: Service Date/Time: Wednesday, March 29, 2017 16:07 - CONCLUSION: Abdominal bowel gas pattern remains abnormal, but unchanged in severity in appearance when compared to CT 03/27/17. Dominick Monroy MD Abdomen/Pelvis CT 03/27/17 0000 Signed Impressions: Service Date/Time: Monday, March 27, 2017 20:57 - CONCLUSION: 1. Interval placement of right pigtail stent catheter with residual mild right hydronephrosis. 2. Large pelvic mass again noted without significant change. 3. Abnormal bowel gas pattern most consistent with an ileus. 4. New small bilateral pleural effusions and anasarca. Altaf Sanches MD Chest X-Ray 03/22/17 0000 Signed Impressions: Service Date/Time: Wednesday, March 22, 2017 21:33 - CONCLUSION: Persistent severe emphysematous change in the left upper lung with some compression/atelectasis at the left mid and lower lung. Mateo Harrington MD Objective Remarks GENERAL: Alert, oriented 3. HEAD: Normocephalic. EYES: EOMI. NECK: trachea midline. CARDIOVASCULAR: Regular rate and without murmurs. RESPIRATORY: Decreased air movement. GASTROINTESTINAL: Tender on palpation and distended. MUSCULOSKELETAL: moves extremities, some edema noted. PSYCH: Mood and affect appropriate. Procedures 03/21/2017 Cystoscopy, right retrograde pyelogram and long term acute care registered nurse right ureteral stent insertion Medications and IVs Current Medications Medications (Trade) Dose Ordered Sig/Mata Route Start Time Stop Time Status Last Admin (NS Flush) 2 ml UNSCH PRN IV FLUSH 03/18/17 14:15 03/28/17 07:37 (NS Flush) 2 ml BID IV FLUSH 03/18/17 21:00 04/01/17 20:32 (Zofran Inj) 4 mg Q6H PRN IVP 03/18/17 14:15 03/30/17 09:44 (Narcan Inj) 0.4 mg UNSCH PRN IV 03/18/17 14:15 Potassium Chloride 10 meq/ Dextrose/Sodium Chloride 1,005 ml @ 75 mls/hr [id number] IV 03/19/17 13:30 04/02/17 00:01 (Tylenol) 650 mg Q4H PRN PO 03/19/17 16:45 03/21/17 17:30 Levofloxacin/ Dextrose 150 ml @ 100 mls/hr Q24H IV 03/19/17 17:00 04/01/17 17:47 (Dilaudid Pf Inj) 0.5 mg Q3H PRN IV 03/20/17 14:15 Future Hold (Protonix) 40 mg Q24H PO 03/22/17 17:00 04/01/17 17:48 (Sharon-Colace) 1 tab BID PO 03/22/17 21:00 04/02/17 09:31 (Milk Of Magnesia Liq) 30 ml Q12H PRN PO 03/22/17 19:30 03/23/17 13:26 (Senokot) 17.2 mg Q12H PRN PO 03/22/17 19:30 03/23/17 11:20 (Dulcolax Supp) 10 mg DAILY PRN RECTAL 03/22/17 19:30 03/31/17 13:03 (Lactulose Liq) 30 ml DAILY PRN PO 03/22/17 19:30 03/29/17 09:18 (Reglan Inj) 10 mg Q8H PRN IV PUSH 03/24/17 11:00 03/30/17 12:58 (Vasotec Inj) 1.25 mg Q6H PRN IV PUSH 03/27/17 19:30 03/29/17 14:31 (Apresoline) 10 mg Q6H PRN PO 03/27/17 19:30 (Oramorph Sr) 30 mg Q12HR PO 03/28/17 21:00 04/02/17 09:30 (Haldol) 2 mg Q6HR PO 03/30/17 18:00 04/02/17 05:45 (Dilaudid Pf Inj) 1.5 mg Q3H PRN IV PUSH 03/30/17 14:30 04/02/17 05:40 (Decadron Inj) 2 mg BID@0800,1400 IV PUSH 03/30/17 14:45 04/02/17 09:31 (Atrovent Neb) 0.5 mg Q4HR NEB NEB 03/31/17 16:00 04/02/17 08:46 (Pulmicort Respule Neb) 0.5 mg Q12HR NEB NEB 03/31/17 20:00 04/01/17 20:12 (Albumin 25% Inj) 25 gm Q12H IV 04/01/17 11:00 04/04/17 05:00 04/02/17 00:01 (Lopressor) 12.5 mg Q12HR PRN PO 04/01/17 21:00 (K-Lyte Cl Eff) 25 meq ONCE ONCE PO 04/02/17 10:30 04/02/17 10:31 A/P Problem List: (1) Post-menopausal bleeding ICD Code: N95.0 - Postmenopausal bleeding Status: Acute (2) Pelvic mass in female ICD Code: R19.00 - Pelvic mass in female Status: Acute Assessment and Plan 57-year-old female admitted secondary to UTI and sepsis. S/p right stent placement for obstructive uropathy. Escherichia coli UTI/ Escherichia coli bacteremia - Continue Levaquin IV per infectious disease - Urine and blood cultures are positive for Escherichia coli. Urinary obstruction/ Moderate right Hydronephrosis/ Uterine carcinosarcoma/ Vaginal bleeding Status post cystoscopy, long-term right ureteral stent insertion. - Radiation treatments to decrease tumor burden. - Palliative chemotherapy after radiation will be considered by gynecological oncology. Not a candidate for surgery due to extensive tumor burden. - will continue Morphine extended release 30 mg BID and continue Dilaudid as breakthrough pain. - Palliative Radiotherapy. COPD Decreased air movement. Imaging with emphysematous changes. - standing and as needed nebs. - repeat CXR. - continue Levaquin IV. - IS. Hyponatremia stable. Hypokalemia replaced Nausea/vomiting-much improved. Constipation/Ileus patient on various laxatives. new KUB no changes. - Add Miralax. Anasarca Secondary to her basal pathology. - will add some Albumin IV. DVT prophylaxis with SCDs. Discharge Planning Awaiting clinical improvement Altaf Gay DO Apr 02, 2017 10:02
[2017-04-02] MEDS ORDERED: POTASSIUM CHLORIDE 25 MEQ EFFERVESCENT TAB PO ONE (10:30)
[2017-04-02] MEDS ORDERED: POLYETHYLENE GLYCOL 17 GM PKG PO ONE (11:00)
--- NOTE | 2017-04-02 11:04 | RADRPT ---
EXAM DATE/TIME: 04/02/2017 10:39 [facility] COMPARISON: CT ABDOMEN & PELVIS W CONTRAST, March 27, 2017, 20:57. CHEST SINGLE AP, March 22, 2017, 21:33. INDICATIONS : Shortness of breath. MEDICAL HISTORY : cancer of uterus SURGICAL HISTORY : renal stent ENCOUNTER: Initial ACUITY: 1 day PAIN SCORE: 2/10 LOCATION: Bilateral upper chest FINDINGS: Portable upright AP view of the chest demonstrates a normal-sized cardiac silhouette. There is backgr ound severe emphysema with large bolus emphysematous change at the left upper lung zone. There are no rmal interstitial and airspace opacities in lower lung zones bilaterally, increased from the prior st udy. No pneumothorax is visualized. There is a small right pleural effusion. Bones demonstrate no acu te finding. CONCLUSION: 1. Severe emphysema with bullous change at the left upper lung zone. 2. Increased interstitial and airspace opacities in the lower lung zones bilaterally with small right pleural effusion. Mateo Ma MD on April 02, 2017 at 11:01 Board Certified Radiologist. This report was verified electronically.
[2017-04-02] MEDS: RESP: ALBUTEROL 2.5 MG/IPRATROPIUM 0.5 MG NEB (SCH) NEB ×2 (14:25→20:26)
[2017-04-02] MEDS: PANTOPRAZOLE SOD 40 MG DELAYED RELEASE TAB PO SCH (17:00)
[2017-04-02] MEDS: LEVOFLOXACIN 750 MG PREMIX INJ 150 ML IV SCH (17:25)
[2017-04-02] MEDS: LORazepam 0.5 MG TAB PO PRN (20:40)
[2017-04-03] VITALS (9 sets, daily range): BP systolic 121–168; BP diastolic 74–86; PULSE 80–109; RESP 16–20; TEMP 96.2–97.3; O2SAT 95–99
[2017-04-03] MEDS: ALBUMIN HUMAN 25% 25 GM/100 ML BAGP IV SCH ×3 (00:08→22:13)
[2017-04-03] MEDS: RESP: IPRATROPIUM 0.5 MG/2.5 ML NEB NEB SCH ×4 (00:11→12:09)
[2017-04-03] MEDS: HALOPERIDOL 2 MG TAB PO SCH ×5 (05:29→23:06)
[2017-04-03] MEDS: HYDROmorphone HCL PF 1 MG/ML VIAL IV PUSH PRN ×6 (05:29→22:13)
[2017-04-03] MEDS: RESP: ALBUTEROL 2.5 MG/IPRATROPIUM 0.5 MG NEB (SCH) NEB ×3 (07:29→20:05)
[2017-04-03] MEDS: DEXAMETHASONE SOD PHOS 4 MG/ML VIAL IV PUSH SCH ×2 (08:00→13:38)
[2017-04-03] MEDS: MORPHINE SULFATE 30 MG CONTROLLED RELEASE TAB PO SCH ×2 (08:15→20:01)
[2017-04-03] MEDS: DOCUSATE SODIUM 50 MG/SENNA 8.6 MG TAB PO SCH ×2 (08:16→20:00)
[2017-04-03] MEDS: SODIUM CHLORIDE 0.9% FLUSH 10 ML FLUSH IV FLUSH SCH ×2 (09:00→20:01)
[2017-04-03 09:38] LABS: HEMATOCRIT 30.3 % (35.0-46.0); MEAN CELL VOLUME 84.2 FL (80.0-100.0); MEAN CORPUSCULAR HEMOGLOBIN 27.6 PG (27.0-34.0); MEAN CORPUSCULAR HGB CONC 32.8 % (32.0-36.0); PLATELET COUNT 566 TH/MM3 (150-450); RED BLOOD COUNT 3.61 MIL/MM3 (4.00-5.30); RED CELL DISTRIBUTION WIDTH 13.8 % (11.6-17.2); REVIEW FLAG FINAL; WHITE BLOOD COUNT 15.6 TH/MM3 (4.0-11.0)
--- NOTE | 2017-04-03 09:40 | HHI.PR ---
Subjective Remarks The patient said that her breathing was a little bit better. She also says that her pain was a little improved. She has not had a bowel movement in days. She slept well. Objective Vitals Vital Signs Date Time Temp Pulse Resp B/P (MAP) Pulse Ox O2 Delivery O2 Flow Rate FiO2 04/03/17 08:00 96.5 103 18 149/82 (104) 95 04/03/17 07:30 96 Nasal Cannula 4.00 04/03/17 06:00 16 04/03/17 04:00 96.2 99 20 168/86 (113) 96 04/03/17 00:00 97.1 99 16 140/79 (99) 98 04/02/17 22:08 16 04/02/17 20:40 Nasal Cannula 4.00 Humidified 04/02/17 20:27 96 Nasal Cannula 4.00 04/02/17 20:00 96.3 107 18 159/87 (111) 95 04/02/17 16:00 97.6 95 18 153/81 (105) 97 04/02/17 15:54 96 Nasal Cannula 4.00 04/02/17 12:00 96.8 102 20 151/79 (103) 97 04/02/17 11:44 99 Nasal Cannula 4.00 04/02/17 10:45 101 I/O 04/02/17 04/02/17 04/02/17 04/03/17 04/03/17 04/03/17 07:00 15:00 23:00 07:00 15:00 23:00 Intake Total 2322 ml 1220 ml 860 ml 720 ml Output Total 1000 ml 1450 ml 1675 ml 1300 ml Balance 1322 ml -230 ml -815 ml -580 ml Intake Oral 1200 ml 720 ml 860 ml 720 ml IV Total 1122 ml 500 ml Output Urine Total 1000 ml 1450 ml 1675 ml 1300 ml # Sanitary Pads 2 Pads Result Diagram: 04/02/17 0654 04/02/17 0654 Imaging Last Impressions Chest X-Ray 04/02/17 0000 Signed Impressions: Service Date/Time: Sunday, April 02, 2017 10:39 - CONCLUSION: 1. Severe emphysema with bullous change at the left upper lung zone. 2. Increased interstitial and airspace opacities in the lower lung zones bilaterally with small right pleural effusion. Mateo Ma MD Abdomen X-Ray 03/29/17 0000 Signed Impressions: Service Date/Time: Wednesday, March 29, 2017 16:07 - CONCLUSION: Abdominal bowel gas pattern remains abnormal, but unchanged in severity in appearance when compared to CT 03/27/17. Dominick Monroy MD Abdomen/Pelvis CT 03/27/17 0000 Signed Impressions: Service Date/Time: Monday, March 27, 2017 20:57 - CONCLUSION: 1. Interval placement of right pigtail stent catheter with residual mild right hydronephrosis. 2. Large pelvic mass again noted without significant change. 3. Abnormal bowel gas pattern most consistent with an ileus. 4. New small bilateral pleural effusions and anasarca. Altaf Sanches MD Objective Remarks GENERAL: Alert, oriented 3. HEAD: Normocephalic. EYES: EOMI. NECK: trachea midline. CARDIOVASCULAR: Regular rate and without murmurs. RESPIRATORY: Decreased air movement. GASTROINTESTINAL: Tender on palpation and distended. MUSCULOSKELETAL: moves extremities, some edema noted. PSYCH: Mood and affect appropriate. Procedures 03/21/2017 Cystoscopy, right retrograde pyelogram and custodial right ureteral stent insertion Medications and IVs Current Medications Medications (Trade) Dose Ordered Sig/Mata Route Start Time Stop Time Status Last Admin (NS Flush) 2 ml UNSCH PRN IV FLUSH 03/18/17 14:15 03/28/17 07:37 (NS Flush) 2 ml BID IV FLUSH 03/18/17 21:00 04/02/17 20:41 (Zofran Inj) 4 mg Q6H PRN IVP 03/18/17 14:15 03/30/17 09:44 (Narcan Inj) 0.4 mg UNSCH PRN IV 03/18/17 14:15 (Tylenol) 650 mg Q4H PRN PO 03/19/17 16:45 03/21/17 17:30 Levofloxacin/ Dextrose 150 ml @ 100 mls/hr Q24H IV 03/19/17 17:00 04/02/17 17:25 (Dilaudid Pf Inj) 0.5 mg Q3H PRN IV 03/20/17 14:15 Future Hold (Protonix) 40 mg Q24H PO 03/22/17 17:00 04/02/17 17:00 (Sharon-Colace) 1 tab BID PO 03/22/17 21:00 04/03/17 08:16 (Milk Of Magnesia Liq) 30 ml Q12H PRN PO 03/22/17 19:30 03/23/17 13:26 (Senokot) 17.2 mg Q12H PRN PO 03/22/17 19:30 03/23/17 11:20 (Dulcolax Supp) 10 mg DAILY PRN RECTAL 03/22/17 19:30 03/31/17 13:03 (Lactulose Liq) 30 ml DAILY PRN PO 03/22/17 19:30 03/29/17 09:18 (Reglan Inj) 10 mg Q8H PRN IV PUSH 03/24/17 11:00 03/30/17 12:58 (Vasotec Inj) 1.25 mg Q6H PRN IV PUSH 03/27/17 19:30 03/29/17 14:31 (Apresoline) 10 mg Q6H PRN PO 03/27/17 19:30 (Oramorph Sr) 30 mg Q12HR PO 03/28/17 21:00 04/03/17 08:15 (Haldol) 2 mg Q6HR PO 03/30/17 18:00 04/03/17 05:29 (Dilaudid Pf Inj) 1.5 mg Q3H PRN IV PUSH 03/30/17 14:30 04/03/17 08:18 (Decadron Inj) 2 mg BID@0800,1400 IV PUSH 03/30/17 14:45 04/02/17 13:25 (Atrovent Neb) 0.5 mg Q4HR NEB NEB 03/31/17 16:00 04/03/17 00:11 (Albumin 25% Inj) 25 gm Q12H IV 04/01/17 11:00 04/04/17 05:00 04/03/17 00:08 (Lopressor) 12.5 mg Q12HR PRN PO 04/01/17 21:00 (Duoneb Neb) 1 ampule Q6HR WHILE AWAKE NEB NEB 04/02/17 14:00 04/03/17 07:29 (Duoneb Neb) 1 ampule Q2HR NEB PRN NEB 04/02/17 10:30 (Ativan) 0.5 mg Q6H PRN PO 04/02/17 21:00 04/02/17 20:40 A/P Problem List: (1) Post-menopausal bleeding ICD Code: N95.0 - Postmenopausal bleeding Status: Acute (2) Pelvic mass in female ICD Code: R19.00 - Pelvic mass in female Status: Acute Assessment and Plan 57-year-old female admitted secondary to UTI and sepsis. S/p right stent placement for obstructive uropathy. Escherichia coli UTI/ Escherichia coli bacteremia - Continue Levaquin IV per infectious disease - Urine and blood cultures are positive for Escherichia coli. Urinary obstruction/ Moderate right Hydronephrosis/ Uterine carcinosarcoma/ Vaginal bleeding Status post cystoscopy, long-term right ureteral stent insertion. - Radiation treatments to decrease tumor burden. - Palliative chemotherapy after radiation will be considered by gynecological oncology. Not a candidate for surgery due to extensive tumor burden. - will continue Morphine extended release 30 mg BID and continue Dilaudid as breakthrough pain. - Palliative Radiotherapy. COPD Decreased air movement. Imaging with emphysematous changes. Chest x-ray with severe bullous emphysema. - standing and as needed nebs. - continue Levaquin IV. - IS. - Pulmonology consultation requested. Constipation/Ileus Patient on various laxatives. - Continue bowel regimen. Dulcolax by mouth 1. - Repeat KUB. - GI consult if no improvement. Anasarca Secondary to her basal pathology. - s/p albumin IV. DVT prophylaxis with SCDs. Discharge Planning Awaiting clinical improvement Altaf Gay DO Apr 03, 2017 09:40
[2017-04-03 09:54] LABS: BICARBONATE 28.9 MEQ/L (21.0-32.0); MAGNESIUM 1.9 MG/DL (1.5-2.5); POTASSIUM 3.8 MEQ/L (3.5-5.1)
[2017-04-03] MEDS ORDERED: BISACODYL EC 5 MG TABEC PO ONE (10:00)
--- NOTE | 2017-04-03 10:55 | RADRPT ---
EXAM DATE/TIME: 04/03/2017 10:20 [facility] COMPARISON: ABDOMEN KUB ONLY, March 29, 2017, 16:07. INDICATIONS : Ileus. MEDICAL HISTORY : Uterine cancer. SURGICAL HISTORY : Renal stent, right. ENCOUNTER: Subsequent ACUITY: 1 week PAIN SCORE: 7/10 LOCATION: Bilateral upper quadrant abdomen FINDINGS: Supine view of the abdomen was performed. The abdominal bowel gas pattern remains abnormal but sligh tly improved. There is continued gaseous distention throughout the small and large intestine which mai s improved since the prior study. Right internal ureteral stent remains in good position.. CONCLUSION: Persistent but improving ileus. Giovanni Lennon MD on April 03, 2017 at 10:51 Board Certified Radiologist. This report was verified electronically.
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
[2017-04-03] MEDS: LEVOFLOXACIN 750 MG PREMIX INJ 150 ML IV SCH (16:56)
[2017-04-03] MEDS: PANTOPRAZOLE SOD 40 MG DELAYED RELEASE TAB PO SCH (16:56)
--- NOTE | 2017-04-03 21:18 | RADRPT ---
EXAM DATE/TIME: 04/03/2017 21:00 [facility] COMPARISON: CT ABDOMEN & PELVIS W CONTRAST, March 27, 2017, 20:57. INDICATIONS : Shortness of breath. RADIATION DOSE: 5.4 CTDIvol (mGy) MEDICAL HISTORY : uterine cancer SURGICAL HISTORY : Tonsillectomy. ENCOUNTER: Initial ACUITY: 1 day PAIN SCALE: 0/10 LOCATION: Bilateral chest TECHNIQUE: Volumetric scanning of the chest was performed. Using automated exposure control and adjustment of t he mA and/or kV according to patient size, radiation dose was kept as low as reasonably achievable to obtain optimal diagnostic quality images. DICOM format image data is available electronically for r eview and comparison. Follow-up recommendations for detected pulmonary nodules are based at a minimum on nodule size and pa tient risk factors according to Fleischner Society Guidelines. FINDINGS: Consolidation has developed in both lower lobes. There are moderate right and small to moderate left pleural effusions, larger than before. Upper lobe predominant bullous emphysematous changes are seen, especially on the left. No pneumothorax. Heart size within normal limits. No lymphadenopathy. Upper abdomen only partly included on this study. Persistent hydronephrosis seen of the visualized ri ght upper pole. CONCLUSION: 1. Right greater the left bibasilar consolidation and pleural effusions, worse. 2. Severe emphysema. Mateo Costa MD on April 03, 2017 at 21:14 Board Certified Radiologist. This report was verified electronically.
[2017-04-04] VITALS (9 sets, daily range): BP systolic 120–166; BP diastolic 72–81; PULSE 90–117; RESP 18–20; TEMP 96.2–98.7; O2SAT 93–98
[2017-04-04] MEDS: HYDROmorphone HCL PF 1 MG/ML VIAL IV PUSH PRN ×7 (02:11→22:28)
[2017-04-04] MEDS: HALOPERIDOL 2 MG TAB PO SCH ×4 (05:05→23:13)
[2017-04-04] MEDS: RESP: ALBUTEROL 2.5 MG/IPRATROPIUM 0.5 MG NEB (SCH) NEB ×3 (07:45→19:53)
[2017-04-04] MEDS: DEXAMETHASONE SOD PHOS 4 MG/ML VIAL IV PUSH SCH ×2 (08:11→15:40)
[2017-04-04] MEDS: DOCUSATE SODIUM 50 MG/SENNA 8.6 MG TAB PO SCH ×2 (08:11→20:30)
[2017-04-04] MEDS: MORPHINE SULFATE 30 MG CONTROLLED RELEASE TAB PO SCH (08:11)
[2017-04-04] MEDS: SODIUM CHLORIDE 0.9% FLUSH 10 ML FLUSH IV FLUSH SCH ×2 (08:13→20:31)
[2017-04-04] MEDS ORDERED: Vancomycin Consult Pharmacy 1 EA OTHER SCH (09:15)
--- NOTE | 2017-04-04 09:39 | HHI.PR ---
Subjective Remarks The patient said that she still has not had a bowel movement. She says she was passing gas. She requested a cough drop. Otherwise she had no acute complaints. Objective Vitals Vital Signs Date Time Temp Pulse Resp B/P (MAP) Pulse Ox O2 Delivery O2 Flow Rate FiO2 04/04/17 08:34 Nasal Cannula 4.00 04/04/17 08:12 97.4 100 20 131/73 (92) 96 04/04/17 07:46 97 Nasal Cannula 4.00 04/04/17 04:00 97.3 90 18 120/72 (88) 97 04/04/17 00:00 97.1 105 18 124/73 (90) 96 04/03/17 20:08 97 Nasal Cannula 4.00 04/03/17 20:00 97.0 80 17 134/76 (95) 96 04/03/17 20:00 Nasal Cannula 4.00 04/03/17 16:00 97.3 109 18 126/76 (93) 95 04/03/17 13:41 99 Nasal Cannula 4.00 04/03/17 12:00 96.9 101 16 121/74 (90) 96 I/O 04/03/17 04/03/17 04/03/17 04/04/17 04/04/17 04/04/17 07:00 15:00 23:00 07:00 15:00 23:00 Intake Total 720 ml 720 ml Output Total 1300 ml 750 ml 850 ml 1400 ml Balance -580 ml -30 ml -850 ml -1400 ml Intake Oral 720 ml 720 ml Output Urine Total 1300 ml 750 ml 850 ml 1400 ml Result Diagram: 04/03/17 0758 04/03/17 0758 Imaging Last Impressions Chest CT 04/03/17 0000 Signed Impressions: Service Date/Time: Monday, April 03, 2017 21:00 - CONCLUSION: 1. Right greater the left bibasilar consolidation and pleural effusions, worse. 2. Severe emphysema. Mateo Costa MD Abdomen X-Ray 04/03/17 0000 Signed Impressions: Service Date/Time: Monday, April 03, 2017 10:20 - CONCLUSION: Persistent but improving ileus. Giovanni Lennon MD Chest X-Ray 04/02/17 0000 Signed Impressions: Service Date/Time: Sunday, April 02, 2017 10:39 - CONCLUSION: 1. Severe emphysema with bullous change at the left upper lung zone. 2. Increased interstitial and airspace opacities in the lower lung zones bilaterally with small right pleural effusion. Mateo Ma MD Abdomen/Pelvis CT 03/27/17 0000 Signed Impressions: Service Date/Time: Monday, March 27, 2017 20:57 - CONCLUSION: 1. Interval placement of right pigtail stent catheter with residual mild right hydronephrosis. 2. Large pelvic mass again noted without significant change. 3. Abnormal bowel gas pattern most consistent with an ileus. 4. New small bilateral pleural effusions and anasarca. Altaf Sanches MD Objective Remarks GENERAL: Alert, oriented 3. HEAD: Normocephalic. EYES: EOMI. NECK: trachea midline. CARDIOVASCULAR: Regular rate and without murmurs. RESPIRATORY: Decreased air movement. GASTROINTESTINAL: Slightly tender on palpation and distended. MUSCULOSKELETAL: moves extremities, some edema noted. PSYCH: Mood and affect appropriate. Procedures 03/21/2017 Cystoscopy, right retrograde pyelogram and nursing home right ureteral stent insertion Medications and IVs Current Medications Medications (Trade) Dose Ordered Sig/Mata Route Start Time Stop Time Status Last Admin (NS Flush) 2 ml UNSCH PRN IV FLUSH 03/18/17 14:15 03/28/17 07:37 (NS Flush) 2 ml BID IV FLUSH 03/18/17 21:00 04/04/17 08:13 (Zofran Inj) 4 mg Q6H PRN IVP 03/18/17 14:15 03/30/17 09:44 (Narcan Inj) 0.4 mg UNSCH PRN IV 03/18/17 14:15 (Tylenol) 650 mg Q4H PRN PO 03/19/17 16:45 03/21/17 17:30 Levofloxacin/ Dextrose 150 ml @ 100 mls/hr Q24H IV 03/19/17 17:00 04/03/17 16:56 (Dilaudid Pf Inj) 0.5 mg Q3H PRN IV 03/20/17 14:15 Future Hold (Protonix) 40 mg Q24H PO 03/22/17 17:00 04/03/17 16:56 (Sharon-Colace) 1 tab BID PO 03/22/17 21:00 04/04/17 08:11 (Milk Of Magnesia Liq) 30 ml Q12H PRN PO 03/22/17 19:30 03/23/17 13:26 (Senokot) 17.2 mg Q12H PRN PO 03/22/17 19:30 03/23/17 11:20 (Dulcolax Supp) 10 mg DAILY PRN RECTAL 03/22/17 19:30 03/31/17 13:03 (Lactulose Liq) 30 ml DAILY PRN PO 03/22/17 19:30 03/29/17 09:18 (Reglan Inj) 10 mg Q8H PRN IV PUSH 03/24/17 11:00 03/30/17 12:58 (Vasotec Inj) 1.25 mg Q6H PRN IV PUSH 03/27/17 19:30 03/29/17 14:31 (Apresoline) 10 mg Q6H PRN PO 03/27/17 19:30 (Oramorph Sr) 30 mg Q12HR PO 03/28/17 21:00 04/04/17 08:11 (Haldol) 2 mg Q6HR PO 03/30/17 18:00 04/04/17 05:05 (Dilaudid Pf Inj) 1.5 mg Q3H PRN IV PUSH 03/30/17 14:30 04/04/17 08:12 (Decadron Inj) 2 mg BID@0800,1400 IV PUSH 03/30/17 14:45 04/04/17 08:11 (Lopressor) 12.5 mg Q12HR PRN PO 04/01/17 21:00 (Duoneb Neb) 1 ampule Q6HR WHILE AWAKE NEB NEB 04/02/17 14:00 04/04/17 07:45 (Duoneb Neb) 1 ampule Q2HR NEB PRN NEB 04/02/17 10:30 (Ativan) 0.5 mg Q6H PRN PO 04/02/17 21:00 04/02/17 20:40 Vancomycin HCl 750 mg/Sodium Chloride 257.5 ml @ 250 mls/hr Q12H IV 04/04/17 11:00 Pharmacy Profile Note 0 ml @ 0 mls/hr UNSCH OTHER 04/04/17 09:15 A/P Problem List: (1) Post-menopausal bleeding ICD Code: N95.0 - Postmenopausal bleeding Status: Acute (2) Pelvic mass in female ICD Code: R19.00 - Pelvic mass in female Status: Acute Assessment and Plan 57-year-old female admitted secondary to UTI and sepsis. S/p right stent placement for obstructive uropathy. Escherichia coli UTI/ Escherichia coli bacteremia - Continue Levaquin IV per infectious disease - Urine and blood cultures are positive for Escherichia coli. Urinary obstruction/ Moderate right Hydronephrosis/ Uterine carcinosarcoma/ Vaginal bleeding Status post cystoscopy, long-term right ureteral stent insertion. - Radiation treatments to decrease tumor burden. - Palliative chemotherapy after radiation will be considered by gynecological oncology. Not a candidate for surgery due to extensive tumor burden. - will continue Morphine extended release 30 mg BID and continue Dilaudid as breakthrough pain. - Palliative Radiotherapy. COPD/ HCAP Decreased air movement. Imaging with emphysematous changes. Chest x-ray with severe bullous emphysema. Pulmonology consult appreciated. CT chest with bibasilar consolidation, pleural effusions. - standing and as needed nebs. - continue Levaquin IV. Add IV vancomycin. - IS. - Pulmonology/ ID following. Constipation/Ileus Patient on various laxatives. KUB 9/11 with improvement. - Continue bowel regimen. Enema if no improvement. - GI consult if does not continue to improve. Anasarca Secondary to her basal pathology. - s/p albumin IV. DVT prophylaxis with SCDs. Discharge Planning Awaiting clinical improvement Altaf Gay DO Apr 04, 2017 09:39
[2017-04-04 09:42] LABS: AUTOMATED NEUTROPHIL # 9.5 TH/MM3 (1.8-7.7); BASOPHIL % 0.4 % (0.0-2.0); EOSINOPHIL # 0.1 TH/MM3 (0-0.4); EOSINOPHIL % 0.6 % (0.0-4.0); HEMATOCRIT 29.1 % (35.0-46.0); HEMO FLAGS DIFF FINAL; LYMPH % 6.1 % (9.0-44.0); LYMPHOCYTE # 0.7 TH/MM3 (1.0-4.8); MEAN CELL VOLUME 83.1 FL (80.0-100.0); MEAN CORPUSCULAR HEMOGLOBIN 27.9 PG (27.0-34.0); MEAN CORPUSCULAR HGB CONC 33.6 % (32.0-36.0); MONO % 6.1 % (0.0-8.0); NEUT % 86.8 % (16.0-70.0); PLATELET COUNT 520 TH/MM3 (150-450); RED CELL DISTRIBUTION WIDTH 14.4 % (11.6-17.2)
[2017-04-04] MEDS ORDERED: LACTULOSE SYRUP 20 GM/30 ML CUP PO ONE (09:45)
[2017-04-04] MEDS ORDERED: MINERAL OIL ENEMA 118 ML BTL RECTAL ONE (09:45)
[2017-04-04] MEDS ORDERED: MENTHOL LOZENGE BUCCAL ONE (09:45)
[2017-04-04] MEDS ORDERED: MENTHOL LOZENGE BUCCAL PRN (09:45)
[2017-04-04] MEDS ORDERED: POLYETHYLENE GLYCOL 17 GM PKG PO ONE (09:45)
[2017-04-04] MEDS: VANCOMYCIN INJ 750 MG in SODIUM CHLOR 0.9% 250 ML INJ 250 ML IV SCH ×2 (11:18→22:28)
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
[2017-04-04] MEDS ORDERED: MORPHINE SULFATE 30 MG CONTROLLED RELEASE TAB PO ONE (12:30)
--- NOTE | 2017-04-04 13:59 | HHI.PR ---
Subjective Remarks ALERT SITTING IN BED Objective Vital Signs Date Time Temp Pulse Resp B/P (MAP) Pulse Ox O2 Delivery O2 Flow Rate FiO2 04/04/17 13:32 98 Nasal Cannula 4.00 04/04/17 12:00 98.4 106 18 121/81 (94) 94 04/04/17 08:34 Nasal Cannula 4.00 04/04/17 08:12 97.4 100 20 131/73 (92) 96 04/04/17 07:46 97 Nasal Cannula 4.00 04/04/17 04:00 97.3 90 18 120/72 (88) 97 04/04/17 00:00 97.1 105 18 124/73 (90) 96 04/03/17 20:08 97 Nasal Cannula 4.00 04/03/17 20:00 97.0 80 17 134/76 (95) 96 04/03/17 20:00 Nasal Cannula 4.00 04/03/17 16:00 97.3 109 18 126/76 (93) 95 I/O 04/03/17 04/03/17 04/03/17 04/04/17 04/04/17 04/04/17 07:00 15:00 23:00 07:00 15:00 23:00 Intake Total 720 ml 720 ml Output Total 1300 ml 750 ml 850 ml 1400 ml Balance -580 ml -30 ml -850 ml -1400 ml Intake Oral 720 ml 720 ml Output Urine Total 1300 ml 750 ml 850 ml 1400 ml Result Diagram: 04/04/17 0818 04/03/17 0758 Procedures 03/21/2017 Cystoscopy, right retrograde pyelogram and mcc right ureteral stent insertion Objective Remarks GENERAL: SKIN: Warm and dry. HEAD: Atraumatic. Normocephalic. EYES: Pupils equal and round. No scleral icterus. No injection or drainage. ENT: No nasal bleeding or discharge. Mucous membranes pink and moist. NECK: Trachea midline. No JVD. CARDIOVASCULAR: Regular rate and rhythm. RESPIRATORY: No accessory muscle use. Clear to auscultation. Breath sounds equal bilaterally. GASTROINTESTINAL: Abdomen soft, non-tender, nondistended. Hepatic and splenic margins not palpable. MUSCULOSKELETAL: Extremities without clubbing, cyanosis, or edema. No obvious deformities. NEUROLOGICAL: Awake and alert. No obvious cranial nerve deficits. Motor grossly within normal limits. Five out of 5 muscle strength in the arms and legs. Normal speech. PSYCHIATRIC: Appropriate mood and affect; insight and judgment normal. Medications and IVs Laboratory Tests Test 04/02/17 06:54 04/03/17 07:58 04/04/17 08:18 White Blood Count 19.3 TH/MM3 (4.0-11.0) 15.6 TH/MM3 (4.0-11.0) Red Blood Count 3.33 MIL/MM3 (4.00-5.30) 3.61 MIL/MM3 (4.00-5.30) 3.50 MIL/MM3 (4.00-5.30) Hemoglobin 9.3 GM/DL (11.6-15.3) 9.9 GM/DL (11.6-15.3) 9.8 GM/DL (11.6-15.3) Hematocrit 28.0 % (35.0-46.0) 30.3 % (35.0-46.0) 29.1 % (35.0-46.0) Platelet Count 570 TH/MM3 (150-450) 566 TH/MM3 (150-450) 520 TH/MM3 (150-450) Neutrophils (%) (Auto) 91.2 % (16.0-70.0) 86.8 % (16.0-70.0) Lymphocytes (%) (Auto) 4.0 % (9.0-44.0) 6.1 % (9.0-44.0) Neutrophils # (Auto) 17.6 TH/MM3 (1.8-7.7) 9.5 TH/MM3 (1.8-7.7) Lymphocytes # (Auto) 0.8 TH/MM3 (1.0-4.8) 0.7 TH/MM3 (1.0-4.8) Creatinine 0.46 MG/DL (0.50-1.00) 0.46 MG/DL (0.50-1.00) Calcium Level 8.2 MG/DL (8.5-10.1) Sodium Level 132 MEQ/L (136-145) 129 MEQ/L (136-145) Chloride Level 96 MEQ/L (98-107) 92 MEQ/L (98-107) Assessment and Plan Assessment and Plan BIBASILAR ATELECTASIS EFFUSION COPD UTERINE SARCOMA PLAN O2 NEEDED BRONCHODILATOR THERAPY INCREASE ACTIVITY Jared Coleman MD Apr 04, 2017 13:59
--- NOTE | 2017-04-04 14:24 | HHI.IDPN ---
Subjective Subjective Remarks Delayed entry pt seen at ~ 10 am Ms. Jara is a 57-year-old female who was recently diagnosed with uterine carcinosarcoma approximately 4 days back she had a cystoscopy, proctoscopy and endocervical/endometrial mass biopsy. Patient has a history of chronic vaginal bleeding, weight loss, back pain. Proctosigmoidoscopy showed extrinsic compression of the bladder. Patient returned to the emergency department because of persistent nausea vomiting and constant sharp severe generalized abdominal as well as back pain. This was associated with burning upon urination, weakness, dizziness and feeling warm. Repeat CT of the abdomen and pelvis showed pelvic mass not significant change from days prior but the right ureter showed mild hydronephrosis and trace fluid in the cul-de-sac. Patient was initially at [facility] and was transferred to the main hospital. Currently she is on hospitalist service. She underwent a sepsis workup blood cultures on admission now are positive for Escherichia coli, Verigene with no CTX-M marker. Urine cultures are positive for GNR. ID consulted for mment of complicated UTI secondary to obstruction from large uterine mass. And some of my evaluation patient is currently admitted on 7 E. floor. She is maintaining her vital signs and appears to be clinically stable. She reports to me that she is going to have a stent placement. Medical records are reviewed and appears that Dr. Clifton as well as Dr. Stephens have seen the patient and there is a plan for stent placement tomorrow. Also it appears that patient has been offered palliative radiation therapy. Overnight events reviewed. No fevers. No rash No diarrhea. Flatus +. No BM in 3 days per pt. Antibiotics Levaquin IV Vanco IV Lines Line sites with no e.o infection. Past Medical History reviewed Allergies: Uncoded Allergies: ADHESIVES (Allergy, Unknown, rash, 03/14/17) Objective . Vital Signs Date Time Temp Pulse Resp B/P (MAP) Pulse Ox O2 Delivery O2 Flow Rate FiO2 04/04/17 13:32 98 Nasal Cannula 4.00 04/04/17 12:00 98.4 106 18 121/81 (94) 94 04/04/17 08:34 Nasal Cannula 4.00 04/04/17 08:12 97.4 100 20 131/73 (92) 96 04/04/17 07:46 97 Nasal Cannula 4.00 04/04/17 04:00 97.3 90 18 120/72 (88) 97 04/04/17 00:00 97.1 105 18 124/73 (90) 96 04/03/17 20:08 97 Nasal Cannula 4.00 04/03/17 20:00 97.0 80 17 134/76 (95) 96 04/03/17 20:00 Nasal Cannula 4.00 04/03/17 16:00 97.3 109 18 126/76 (93) 95 . Laboratory Tests Test 04/03/17 07:58 04/04/17 08:18 White Blood Count 15.6 TH/MM3 11.0 TH/MM3 Red Blood Count 3.61 MIL/MM3 3.50 MIL/MM3 Hemoglobin 9.9 GM/DL 9.8 GM/DL Hematocrit 30.3 % 29.1 % Mean Corpuscular Volume 84.2 FL 83.1 FL Mean Corpuscular Hemoglobin 27.6 PG 27.9 PG Mean Corpuscular Hemoglobin Concent 32.8 % 33.6 % Red Cell Distribution Width 13.8 % 14.4 % Platelet Count 566 TH/MM3 520 TH/MM3 Mean Platelet Volume 7.5 FL 7.3 FL Neutrophils (%) (Auto) 86.8 % Lymphocytes (%) (Auto) 6.1 % Monocytes (%) (Auto) 6.1 % Eosinophils (%) (Auto) 0.6 % Basophils (%) (Auto) 0.4 % Neutrophils # (Auto) 9.5 TH/MM3 Lymphocytes # (Auto) 0.7 TH/MM3 Monocytes # (Auto) 0.7 TH/MM3 Eosinophils # (Auto) 0.1 TH/MM3 Basophils # (Auto) 0.0 TH/MM3 CBC Comment DIFF FINAL Differential Comment Laboratory Tests Test 04/03/17 07:58 Blood Urea Nitrogen 11 MG/DL Creatinine 0.46 MG/DL Random Glucose 90 MG/DL Calcium Level 8.5 MG/DL Magnesium Level 1.9 MG/DL Sodium Level 129 MEQ/L Potassium Level 3.8 MEQ/L Chloride Level 92 MEQ/L Carbon Dioxide Level 28.9 MEQ/L Anion Gap 8 MEQ/L Estimat Glomerular Filtration Rate 141 ML/MIN Imaging Last Impressions Abdomen/Pelvis CT 03/18/17 1205 Signed Impressions: Service Date/Time: Saturday, March 18, 2017 13:02 - CONCLUSION: 1. Large heterogeneous pelvic mass is not significantly changed in size. 2. Right ureter is now obstructed distally. Mild hydronephrosis now seen and with associated swelling and delayed nephrogram of the right kidney. Retroperitoneal lymphadenopathy narrowing the 2 right renal arteries may also be contributing to the delayed nephrogram. 3. Metastatic retroperitoneal lymphadenopathy again noted, similar to before. Most of the nodes appear partly necrotic. 4. Trace free fluid now seen in the pelvic cul-de-sac. No perceptible abscess. 5. Subcentimeter hypodensity of the liver is unchanged and most likely a benign cyst. Mateo Costa MD Chest X-Ray 03/18/17 1155 Signed Impressions: Service Date/Time: Monday, March 18, 2017 12:10 - CONCLUSION: Emphysema. No evidence of acute cardiopulmonary disease. Mateo Costa MD Physical Exam GENERAL:Thin built patient, in no apparent distress. SKIN: No rashes, ecchymoses or lesions. Cool and dry. HEAD: Atraumatic. Normocephalic. No temporal or scalp tenderness. EYES: Pupils equal round and reactive. Extraocular motions intact. No scleral icterus. No injection or drainage. ENT: Nose without bleeding, purulent drainage or septal hematoma. Throat without erythema, tonsillar hypertrophy or exudate. Uvula midline. Airway patent. NECK: Trachea midline. No JVD or lymphadenopathy. Supple, nontender, no meningeal signs. CARDIOVASCULAR: Regular rate and rhythm without murmurs, gallops, or rubs. RESPIRATORY: Clear to auscultation. Breath sounds equal bilaterally. No wheezes , rales, or rhonchi. GASTROINTESTINAL: Abdomen soft, nondistended. Right CVA tenderness. Diffuse abdominal tenderness. Bowel sounds hyperactive. Passing gas. MUSCULOSKELETAL: Extremities without clubbing, cyanosis, or edema. No joint tenderness, effusion, or edema noted. No calf tenderness. Negative Homans sign bilaterally. NEUROLOGICAL: Awake and alert. Grossly non focal Psych: cooperative IV line sites with no e.o infection. Assessment & Plan Remarks Sepsis present on admission. Escherichia coli gram-negative nino bacteremia likely secondary to UTI Complicated UTI with obstruction secondary to large uterine mass. Uterine cancer with retroperitoneal adenopathy likely advanced stage. Has been offered palliative radiation therapy. Persistent fevers: ? source control not achieved yet. Hopefully stent placement will help relieve the infected urine in hydronephrotic kidney. Hypoalbuminemia: nutritional, cancer. Recs Continue Levaquin IV completed treatment for E.coli bacteremia today but needs treatment for Pneumonia. Continue Vanco IV for pneumonia. Follow cultures Follow clinically. Recommend repeat CXR on 04/07 if still in hospital. If improved ok to discharge on oral levaquin and oral zyvox to complete a total of 10 day course. If remains in hospital may either use vanco IV with levaquin OR oral zyvox with levaquin. Will follow prn please call sooner if any change in clinical condition. Jenny Jackson MD Apr 04, 2017 14:24
[2017-04-04] MEDS: PANTOPRAZOLE SOD 40 MG DELAYED RELEASE TAB PO SCH (15:39)
[2017-04-04] MEDS: LEVOFLOXACIN 750 MG PREMIX INJ 150 ML IV SCH (15:39)
--- NOTE | 2017-04-04 16:41 | MB ---
cc: JARED COLEMAN M.D. DATE OF CONSULTATION 04/03/2017 REASON FOR CONSULTATION Pleural effusion. 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 The patient had a chest x-ray with suggestion of small pleural effusion. I am asked to see the patient at this time for same. She denies shortness of breath, fever, chills, cough or expectoration. She has no chest pain. PAST MEDICAL HISTORY Is that of: 1. Uterine sarcoma. 2. History of COPD. ALLERGIES ADHESIVES. MEDICATIONS Kindly review on SEP. FAMILY HISTORY Noncontributory. REVIEW OF SYSTEMS 12-point review of systems as per HPI and past history otherwise negative. SOCIAL HISTORY Long heavy smoking history. PHYSICAL EXAMINATION GENERAL: On exam the patient is alert. VITAL SIGNS: Temperature 98, respirations 18, temperature 99, blood pressure 100/60. Oxygen saturation 94% on 2 liters oxygen nasal cannula. HEENT: Unremarkable. Eyes without icterus. NECK: No adenopathy or thyroid enlargement. CHEST: Few scattered rhonchi bilaterally. CARDIOVASCULAR: PMI distant. S1-S2 audible. No murmur or rub. ABDOMEN: Lax. Audible bowel sounds. EXTREMITIES: No clubbing, cyanosis or edema. LABORATORY DATA White count 15,000, hemoglobin 10, hematocrit 30, platelets at 566,000. Sodium 129, potassium 3.8, BUN 8, creatinine 0.46. IMAGING Chest x-ray with severe emphysematous change increasing interstitial changes of the lung bases. Small right pleural effusion. IMPRESSION 1. Chronic obstructive pulmonary disease. 2. Abnormal nonspecific findings by chest x-ray. 3. Uterine sarcoma. PLAN The patient will be started on nebulized albuterol to use four times daily. Meanwhile check her pulmonary function. CT scan of the chest without contrast as well would be helpful to further identify the findings on his CT scan. This has been discussed and explained to her in detail. Pleural effusion on the right seems to be quite small and a thoracentesis would not be necessary at this point. I do thank you for asking me to partake in Mrs. Marek rendon. Jared Coleman MD WWW/BHAVIN /7:36 PM /4:20 PM
[2017-04-04] MEDS: METHYLNALTREXONE BROMIDE 12 MG/0.6 ML VIAL SQ SCH (18:36)
[2017-04-04] MEDS: MORPHINE SULFATE 60 MG CONTROLLED RELEASE TAB PO SCH (20:30)
[2017-04-05] VITALS (9 sets, daily range): BP systolic 125–156; BP diastolic 65–90; PULSE 90–107; RESP 17–20; TEMP 96.8–97.7; O2SAT 92–97
[2017-04-05] MEDS: HYDROmorphone HCL PF 1 MG/ML VIAL IV PUSH PRN ×6 (01:56→22:44)
[2017-04-05] MEDS: HALOPERIDOL 2 MG TAB PO SCH ×4 (05:06→22:43)
--- NOTE | 2017-04-05 07:47 | RADRPT ---
EXAM DATE/TIME: 04/05/2017 06:52 [place] COMPARISON: ABDOMEN KUB ONLY, April 03, 2017, 10:20. INDICATIONS : Ileus. MEDICAL HISTORY : Uterince cancer. SURGICAL HISTORY : Tonsillectomy. ENCOUNTER: Subsequent ACUITY: 1 week PAIN SCORE: 6/10 LOCATION: Bilateral abdomen FINDINGS: Supine view of the abdomen was performed. Gaseous distention of the colon persists. There is progress ion of gas through the small intestinal track. No other significant change noted. CONCLUSION: Resolving small bowel ileus with progression of gas into the colon. Persistent gaseous distention of the colon. Giovanni Lennon MD on April 05, 2017 at 7:44 Board Certified Radiologist. This report was verified electronically.
[2017-04-05] MEDS: RESP: ALBUTEROL 2.5 MG/IPRATROPIUM 0.5 MG NEB (SCH) NEB ×2 (07:50→19:20)
[2017-04-05 08:03] LABS: HEMATOCRIT 31.1 % (35.0-46.0); MEAN CELL VOLUME 82.9 FL (80.0-100.0); MEAN CORPUSCULAR HEMOGLOBIN 27.7 PG (27.0-34.0); MEAN CORPUSCULAR HGB CONC 33.4 % (32.0-36.0); PLATELET COUNT 564 TH/MM3 (150-450); RED BLOOD COUNT 3.75 MIL/MM3 (4.00-5.30); REVIEW FLAG FINAL; WHITE BLOOD COUNT 12.3 TH/MM3 (4.0-11.0)
[2017-04-05 08:33] LABS: BICARBONATE 31.7 MEQ/L (21.0-32.0); POTASSIUM 3.7 MEQ/L (3.5-5.1)
[2017-04-05] MEDS: DOCUSATE SODIUM 50 MG/SENNA 8.6 MG TAB PO SCH ×2 (09:11→20:19)
[2017-04-05] MEDS: MORPHINE SULFATE 60 MG CONTROLLED RELEASE TAB PO SCH ×2 (09:12→20:19)
[2017-04-05] MEDS: VANCOMYCIN INJ 750 MG in SODIUM CHLOR 0.9% 250 ML INJ 250 ML IV SCH ×2 (09:26→22:58)
[2017-04-05] MEDS: DEXAMETHASONE SOD PHOS 4 MG/ML VIAL IV PUSH SCH ×2 (09:26→13:34)
[2017-04-05] MEDS: SODIUM CHLORIDE 0.9% FLUSH 10 ML FLUSH IV FLUSH SCH ×2 (09:36→20:19)
--- NOTE | 2017-04-05 10:08 | RSPPFT ---
DATE OF PROCEDURE: 04/15/17 COMMENTS: Spirometry with FVC of 1.2, FEV1 of 0.4, FEV1/FVC ratio at 34% of predicted. A positive and significant response to acutely inhaled bronchodilator noted. IMPRESSION: 1. Very severe airways obstruction. 2. Positive and significant response to inhaled bronchodilator.
--- NOTE | 2017-04-05 12:14 | HHI.PR ---
Subjective Remarks for RT today NO SOB Objective Vital Signs Date Time Temp Pulse Resp B/P (MAP) Pulse Ox O2 Delivery O2 Flow Rate FiO2 04/05/17 09:41 Nasal Cannula 4.00 04/05/17 07:52 95 Nasal Cannula 4.00 04/05/17 04:00 96.8 99 18 137/82 (100) 96 04/05/17 00:00 97.7 106 17 156/90 (112) 95 04/04/17 20:30 Nasal Cannula 4.00 04/04/17 20:00 96.2 117 18 166/77 (106) 94 04/04/17 19:54 93 Nasal Cannula 4.00 04/04/17 16:00 98.7 104 18 143/78 (99) 94 04/04/17 13:32 98 Nasal Cannula 4.00 I/O 04/04/17 04/04/17 04/04/17 04/05/17 04/05/17 04/05/17 07:00 15:00 23:00 07:00 15:00 23:00 Intake Total 600 ml 240 ml Output Total 1400 ml 1450 ml 1800 ml 1450 ml Balance -1400 ml -850 ml -1800 ml -1210 ml Intake Oral 600 ml 240 ml Output Urine Total 1400 ml 1450 ml 1800 ml 1450 ml Result Diagram: 04/05/17 0733 04/05/17 0733 Procedures 03/21/2017 Cystoscopy, right retrograde pyelogram and intermediate project manager right ureteral stent insertion Objective Remarks GENERAL: SKIN: Warm and dry. HEAD: Atraumatic. Normocephalic. EYES: Pupils equal and round. No scleral icterus. No injection or drainage. ENT: No nasal bleeding or discharge. Mucous membranes pink and moist. NECK: Trachea midline. No JVD. CARDIOVASCULAR: Regular rate and rhythm. RESPIRATORY: No accessory muscle use. Clear to auscultation. Breath sounds equal bilaterally. GASTROINTESTINAL: Abdomen soft, non-tender, nondistended. Hepatic and splenic margins not palpable. MUSCULOSKELETAL: Extremities without clubbing, cyanosis, or edema. No obvious deformities. NEUROLOGICAL: Awake and alert. No obvious cranial nerve deficits. Motor grossly within normal limits. Five out of 5 muscle strength in the arms and legs. Normal speech. PSYCHIATRIC: Appropriate mood and affect; insight and judgment normal. Assessment and Plan Assessment and Plan BIBASILAR ATELECTASIS EFFUSION COPD UTERINE SARCOMA PLAN O2 NEEDED BRONCHODILATOR THERAPY INCREASE ACTIVITY Jared Coleman MD Apr 05, 2017 12:14
--- NOTE | 2017-04-05 12:47 | HHI.PR ---
Subjective Remarks The patient said that she has been passing gas but has not had a bowel movement yet. She otherwise has no acute complaints. She says her pain is controlled. She says she has been working with physical therapy. Discussed with nursing at the bedside. Objective Vitals Vital Signs Date Time Temp Pulse Resp B/P (MAP) Pulse Ox O2 Delivery O2 Flow Rate FiO2 04/05/17 09:41 Nasal Cannula 4.00 04/05/17 07:52 95 Nasal Cannula 4.00 04/05/17 04:00 96.8 99 18 137/82 (100) 96 04/05/17 00:00 97.7 106 17 156/90 (112) 95 04/04/17 20:30 Nasal Cannula 4.00 04/04/17 20:00 96.2 117 18 166/77 (106) 94 04/04/17 19:54 93 Nasal Cannula 4.00 04/04/17 16:00 98.7 104 18 143/78 (99) 94 04/04/17 13:32 98 Nasal Cannula 4.00 I/O 04/04/17 04/04/17 04/04/17 04/05/17 04/05/17 04/05/17 07:00 15:00 23:00 07:00 15:00 23:00 Intake Total 600 ml 240 ml Output Total 1400 ml 1450 ml 1800 ml 1450 ml Balance -1400 ml -850 ml -1800 ml -1210 ml Intake Oral 600 ml 240 ml Output Urine Total 1400 ml 1450 ml 1800 ml 1450 ml Result Diagram: 04/05/17 0733 04/05/17 0733 Imaging Last Impressions Abdomen X-Ray 04/05/17 0600 Signed Impressions: Service Date/Time: Wednesday, April 05, 2017 06:52 - CONCLUSION: Resolving small bowel ileus with progression of gas into the colon. Persistent gaseous distention of the colon. Giovanni Lennon MD Chest CT 04/03/17 0000 Signed Impressions: Service Date/Time: Monday, April 03, 2017 21:00 - CONCLUSION: 1. Right greater the left bibasilar consolidation and pleural effusions, worse. 2. Severe emphysema. Mateo Costa MD Chest X-Ray 04/02/17 0000 Signed Impressions: Service Date/Time: Sunday, April 02, 2017 10:39 - CONCLUSION: 1. Severe emphysema with bullous change at the left upper lung zone. 2. Increased interstitial and airspace opacities in the lower lung zones bilaterally with small right pleural effusion. Mateo Ma MD Abdomen/Pelvis CT 03/27/17 0000 Signed Impressions: Service Date/Time: Monday, March 27, 2017 20:57 - CONCLUSION: 1. Interval placement of right pigtail stent catheter with residual mild right hydronephrosis. 2. Large pelvic mass again noted without significant change. 3. Abnormal bowel gas pattern most consistent with an ileus. 4. New small bilateral pleural effusions and anasarca. Altaf Sanches MD Objective Remarks GENERAL: Alert, oriented 3. HEAD: Normocephalic. EYES: EOMI. NECK: trachea midline. CARDIOVASCULAR: Regular rate and without murmurs. RESPIRATORY: Decreased air movement. GASTROINTESTINAL: Slightly tender on palpation and distended. MUSCULOSKELETAL: moves extremities, some edema noted. PSYCH: Mood and affect appropriate. Procedures 03/21/2017 Cystoscopy, right retrograde pyelogram and group home right ureteral stent insertion Medications and IVs Current Medications Medications (Trade) Dose Ordered Sig/Mata Route Start Time Stop Time Status Last Admin (NS Flush) 2 ml UNSCH PRN IV FLUSH 03/18/17 14:15 03/28/17 07:37 (NS Flush) 2 ml BID IV FLUSH 03/18/17 21:00 04/05/17 09:36 (Zofran Inj) 4 mg Q6H PRN IVP 03/18/17 14:15 03/30/17 09:44 (Narcan Inj) 0.4 mg UNSCH PRN IV 03/18/17 14:15 (Tylenol) 650 mg Q4H PRN PO 03/19/17 16:45 03/21/17 17:30 Levofloxacin/ Dextrose 150 ml @ 100 mls/hr Q24H IV 03/19/17 17:00 04/04/17 15:39 (Dilaudid Pf Inj) 0.5 mg Q3H PRN IV 03/20/17 14:15 Future Hold (Protonix) 40 mg Q24H PO 03/22/17 17:00 04/04/17 15:39 (Sharon-Colace) 1 tab BID PO 03/22/17 21:00 04/05/17 09:11 (Milk Of Magnesia Liq) 30 ml Q12H PRN PO 03/22/17 19:30 03/23/17 13:26 (Senokot) 17.2 mg Q12H PRN PO 03/22/17 19:30 03/23/17 11:20 (Dulcolax Supp) 10 mg DAILY PRN RECTAL 03/22/17 19:30 03/31/17 13:03 (Lactulose Liq) 30 ml DAILY PRN PO 03/22/17 19:30 03/29/17 09:18 (Reglan Inj) 10 mg Q8H PRN IV PUSH 03/24/17 11:00 03/30/17 12:58 (Vasotec Inj) 1.25 mg Q6H PRN IV PUSH 03/27/17 19:30 03/29/17 14:31 (Apresoline) 10 mg Q6H PRN PO 03/27/17 19:30 (Haldol) 2 mg Q6HR PO 03/30/17 18:00 04/05/17 05:06 (Dilaudid Pf Inj) 1.5 mg Q3H PRN IV PUSH 03/30/17 14:30 04/05/17 09:12 (Decadron Inj) 2 mg BID@0800,1400 IV PUSH 03/30/17 14:45 04/05/17 09:26 (Lopressor) 12.5 mg Q12HR PRN PO 04/01/17 21:00 (Duoneb Neb) 1 ampule Q6HR WHILE AWAKE NEB NEB 04/02/17 14:00 04/05/17 07:50 (Duoneb Neb) 1 ampule Q2HR NEB PRN NEB 04/02/17 10:30 (Ativan) 0.5 mg Q6H PRN PO 04/02/17 21:00 04/02/17 20:40 Vancomycin HCl 750 mg/Sodium Chloride 257.5 ml @ 250 mls/hr Q12H IV 04/04/17 11:00 04/05/17 09:26 Pharmacy Profile Note 0 ml @ 0 mls/hr UNSCH OTHER 04/04/17 09:15 ([place] [facility]) 1 lozenge UNSCH PRN BUCCAL 04/04/17 09:45 Miscellaneous Information SPECIFIC LAB TO BE DRAWN:VANCO TROUGH DATE TO... ONCE ONCE .XX 04/05/17 22:45 04/05/17 22:46 (Oramorph Sr) 60 mg Q12HR PO 04/04/17 21:00 04/05/17 09:12 (Relistor Inj) 8 mg EVERY OTHER DAY SQ 04/04/17 18:00 04/04/17 18:36 A/P Problem List: (1) Post-menopausal bleeding ICD Code: N95.0 - Postmenopausal bleeding Status: Acute (2) Pelvic mass in female ICD Code: R19.00 - Pelvic mass in female Status: Acute Assessment and Plan 57-year-old female admitted secondary to UTI and sepsis. S/p right stent placement for obstructive uropathy. Escherichia coli UTI/ Escherichia coli bacteremia - Continue Levaquin IV per infectious disease. - Urine and blood cultures are positive for Escherichia coli. Urinary obstruction/ Moderate right Hydronephrosis/ Uterine carcinosarcoma/ Vaginal bleeding Status post cystoscopy, long-term right ureteral stent insertion. - Radiation treatments to decrease tumor burden. - Palliative chemotherapy after radiation will be considered by gynecological oncology. Not a candidate for surgery due to extensive tumor burden. - will continue Morphine extended release 30 mg BID and continue Dilaudid as breakthrough pain. - Palliative Radiotherapy. COPD/ HCAP Decreased air movement. Imaging with emphysematous changes. Chest x-ray with severe bullous emphysema. Pulmonology consult appreciated. CT chest with bibasilar consolidation, pleural effusions. - standing and as needed nebs. - continue Levaquin IV. Add IV vancomycin. - IS. - Pulmonology following. - repeat CXR 04/07 per ID. Constipation/Ileus Patient on various laxatives. KUB 04/05 with improvement. - Continue bowel regimen. Relistor added. Enema if no improvement. - GI consult if does not continue to improve. Anasarca Secondary to her basal pathology. - s/p albumin IV. Buttocks wound Nursing mentions excoriations to the buttocks area. - Wound care nurse consult requested. DVT prophylaxis with SCDs. Discharge Planning Awaiting clinical improvement Altaf Gay DO Apr 05, 2017 12:47
[2017-04-05] MEDS: LEVOFLOXACIN 750 MG PREMIX INJ 150 ML IV SCH (18:23)
[2017-04-05] MEDS: PANTOPRAZOLE SOD 40 MG DELAYED RELEASE TAB PO SCH (18:23)
[2017-04-05] MEDS ORDERED: PHARMACY ORDERED LAB ONE (22:45)
[2017-04-06] VITALS (7 sets, daily range): BP systolic 132–153; BP diastolic 68–97; PULSE 89–108; RESP 16–20; TEMP 96.4–98.5; O2SAT 92–100
[2017-04-06] MEDS: LORazepam 0.5 MG TAB PO PRN ×2 (00:21→21:48)
[2017-04-06] MEDS: HALOPERIDOL 2 MG TAB PO SCH ×4 (05:09→22:33)
[2017-04-06] MEDS: HYDROmorphone HCL PF 1 MG/ML VIAL IV PUSH PRN ×2 (05:15→22:30)
[2017-04-06] MEDS: DOCUSATE SODIUM 50 MG/SENNA 8.6 MG TAB PO SCH ×2 (08:31→20:05)
[2017-04-06] MEDS: MORPHINE SULFATE 60 MG CONTROLLED RELEASE TAB PO SCH ×2 (08:31→20:05)
[2017-04-06] MEDS: SODIUM CHLORIDE 0.9% FLUSH 10 ML FLUSH IV FLUSH SCH ×2 (08:32→20:07)
[2017-04-06] MEDS: METHYLNALTREXONE BROMIDE 12 MG/0.6 ML VIAL SQ SCH (08:35)
[2017-04-06] MEDS: DEXAMETHASONE SOD PHOS 4 MG/ML VIAL IV PUSH SCH ×2 (08:35→13:33)
[2017-04-06] MEDS: RESP: ALBUTEROL 2.5 MG/IPRATROPIUM 0.5 MG NEB (SCH) NEB (09:20)
--- NOTE | 2017-04-06 10:19 | HHI.HCPN ---
Reason for visit a. To assist with evaluation and management of symptoms including: pain, nausea b. To assist medical decision maker(s) with: better understanding of current medical conditions; weighing benefits/burdens of medical treatment options; making medical treatment decisions. Subjective/Interval History Follow up today to evaluate efficacy of pain management, the patient still rates her pain 8/10, but endorses that this is at a more tolerable level for her then previously. The patient states her abdomen feels less distended, she is passing gas, she still has not had a bowel movement since 03/28. Abdominal XR : Resolving small bowel ileus with progression of gas into the colon. Persistent gaseous distention of the colon.The patient states she has not experienced any nausea or needed any PRN antiemetic medications. The patient reports she is still experiencing intermittent echoing in her ears, she states it has not worsened and remains the same. PRN requirements for the past couple of days: An average of about 5 PRN doses of 1.5 mg hydromorphone IV. On 03/30 the hydromorphone dose was increased by .5 mg, haldol was increased to 2 mg, and decadron was added. The patient has not required any PRN doses of antiemetic medication and verbalized her nausea has improved. Average IV hydromorphone utilization is greater than 100mg morphine oral equivalents a day, despite increasing oral morphine dose PRN requirements have remained unchanged plan to increase oral morphine from 60mg BID to 90mg BID today to decrease utilization of PRN hydromorphone. Advance Directives Living Will: Never completed Health Care Surrogate: Never completed Durable Power of Coil Maker: Never completed Objective Vital Signs Date Time Temp Pulse Resp B/P (MAP) Pulse Ox O2 Delivery O2 Flow Rate FiO2 04/06/17 09:22 100 Nasal Cannula 4.00 04/06/17 09:17 Nasal Cannula 4.00 04/06/17 05:59 19 04/06/17 04:00 98.5 89 17 147/87 (107) 97 04/06/17 00:00 96.4 89 17 132/68 (89) 92 04/05/17 21:34 20 04/05/17 21:00 97 Nasal Cannula 4.00 21 04/05/17 20:00 97.1 101 18 140/72 (94) 97 04/05/17 19:20 97 Nasal Cannula 4.00 04/05/17 15:50 97.6 90 20 125/65 (85) 93 04/05/17 13:13 97 Nasal Cannula 4.00 04/05/17 11:50 97.0 101 20 150/79 (102) 92 Intake & Output 04/06/17 04/06/17 07:00 19:00 Intake Total 696 ml Output Total 1500 ml Balance -804 ml Intake Oral 240 ml IV Total 456 ml Output Urine Total 1500 ml # Sanitary Pads 2 Pads Physical Exam CONSTITUTIONAL/GENERAL: This is a thin very pleasant female patient. TUBES/LINES/DRAINS: PIV right forearm, pak catheter CARDIOVASCULAR: Regular rate and rhythm. No murmurs. No JVD. Peripheral pulses symmetric. Peripheral pulses palpable. RESPIRATORY/CHEST: Symmetric, unlabored respirations.Clear to auscultation. Breath sounds equal bilaterally. On 2L NC. GASTROINTESTINAL: Abdomen flat, nondistended. Bowel sounds active. GENITOURINARY: Without palpable bladder distension. Pak catheter in place. NEUROLOGICAL: Awake and alert. Oriented 3, appropriate. Insight appears good. Motor and sensory grossly within normal limits. Follows commands. Cognitively sharp. Moves all extremities. PSYCHIATRIC: No obvious anxiety/depression. no apparent hallucinations or other psychotic thought process. . Diagnostic Tests Laboratory Laboratory Tests Test 04/04/17 08:18 04/05/17 07:33 04/05/17 22:55 White Blood Count 11.0 TH/MM3 (4.0-11.0) 12.3 TH/MM3 (4.0-11.0) Red Blood Count 3.50 MIL/MM3 (4.00-5.30) 3.75 MIL/MM3 (4.00-5.30) Hemoglobin 9.8 GM/DL (11.6-15.3) 10.4 GM/DL (11.6-15.3) Hematocrit 29.1 % (35.0-46.0) 31.1 % (35.0-46.0) Mean Corpuscular Volume 83.1 FL (80.0-100.0) 82.9 FL (80.0-100.0) Mean Corpuscular Hemoglobin 27.9 PG (27.0-34.0) 27.7 PG (27.0-34.0) Mean Corpuscular Hemoglobin Concent 33.6 % (32.0-36.0) 33.4 % (32.0-36.0) Red Cell Distribution Width 14.4 % (11.6-17.2) 14.0 % (11.6-17.2) Platelet Count 520 TH/MM3 (150-450) 564 TH/MM3 (150-450) Mean Platelet Volume 7.3 FL (7.0-11.0) 7.0 FL (7.0-11.0) Neutrophils (%) (Auto) 86.8 % (16.0-70.0) Lymphocytes (%) (Auto) 6.1 % (9.0-44.0) Monocytes (%) (Auto) 6.1 % (0.0-8.0) Eosinophils (%) (Auto) 0.6 % (0.0-4.0) Basophils (%) (Auto) 0.4 % (0.0-2.0) Neutrophils # (Auto) 9.5 TH/MM3 (1.8-7.7) Lymphocytes # (Auto) 0.7 TH/MM3 (1.0-4.8) Monocytes # (Auto) 0.7 TH/MM3 (0-0.9) Eosinophils # (Auto) 0.1 TH/MM3 (0-0.4) Basophils # (Auto) 0.0 TH/MM3 (0-0.2) CBC Comment DIFF FINAL Differential Comment Blood Urea Nitrogen 13 MG/DL (7-18) Creatinine 0.55 MG/DL (0.50-1.00) Random Glucose 110 MG/DL (74-106) Calcium Level 8.6 MG/DL (8.5-10.1) Magnesium Level 2.0 MG/DL (1.5-2.5) Sodium Level 134 MEQ/L (136-145) Potassium Level 3.7 MEQ/L (3.5-5.1) Chloride Level 95 MEQ/L (98-107) Carbon Dioxide Level 31.7 MEQ/L (21.0-32.0) Anion Gap 7 MEQ/L (5-15) Estimat Glomerular Filtration Rate 115 ML/MIN (>89) Vancomycin Level Trough 8.8 MCG/ML (5.0-10.0) . Result Diagram: 04/05/17 0733 04/05/17 0733 Imaging Last Impressions Abdomen X-Ray 04/05/17 0600 Signed Impressions: Service Date/Time: Wednesday, April 05, 2017 06:52 - CONCLUSION: Resolving small bowel ileus with progression of gas into the colon. Persistent gaseous distention of the colon. Giovanni Lennon MD Chest CT 04/03/17 0000 Signed Impressions: Service Date/Time: Monday, April 03, 2017 21:00 - CONCLUSION: 1. Right greater the left bibasilar consolidation and pleural effusions, worse. 2. Severe emphysema. Mateo Costa MD Chest X-Ray 04/02/17 0000 Signed Impressions: Service Date/Time: Sunday, April 02, 2017 10:39 - CONCLUSION: 1. Severe emphysema with bullous change at the left upper lung zone. 2. Increased interstitial and airspace opacities in the lower lung zones bilaterally with small right pleural effusion. Mateo Ma MD Abdomen/Pelvis CT 03/27/17 0000 Signed Impressions: Service Date/Time: Monday, March 27, 2017 20:57 - CONCLUSION: 1. Interval placement of right pigtail stent catheter with residual mild right hydronephrosis. 2. Large pelvic mass again noted without significant change. 3. Abnormal bowel gas pattern most consistent with an ileus. 4. New small bilateral pleural effusions and anasarca. 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 x35 yrs. Originally from [place], is here with green card and legal resident. Has lived in [place] for 30+ years Spiritual: No particular zoroastrian affiliation, prays on her own. Does not desire process tech support at this time Legal:Patient is currently alert, oriented and able to make her own decisions. She does not have advanced directives or HCS. Per [place] statutes if she became incapacitated her would be legal decision maker. Patient has verbally indicated that she would want him to be her legal decision maker. Offered assistance with advanced directive, HCS during hospitalization, she does not wish to complete at this time, palliative available to assist if she desires. Ethical issues impacting care: None known. Important Contacts Nicolas Jara [phone] Silvia Davis friend [phone] . Prognosis Patient appears to have advanced malignancy process recent pathology indicative of uterine carcinosarcoma. She has expansive tumor burden which is not amenable to surgical intervention. Currently receiving palliative peritoneal radiation started 03/30, current goal is to reduce pain and tumor burden. Possibly may be offered palliative chemotherapy depending on her performance status. She is very high risk for complications, decline related to advanced disease process and current sequelae she is experiencing secondary to pelvic mass. Appropriate for hospice if goals compatible in the future. . Code Status: Full Code Plan Legal decision maker: Patient is currently alert, oriented and able to make her own decisions. She does not have advanced directives or HCS. Per [place] statutes if she became incapacitated her would be legal decision maker. Patient has verbally indicated today that she would want him to be her legal decision maker. Offered assistance with advanced directive, HCS during hospitalization, she does not wish to complete at this time palliative available to assist if she desires. * Goals: Patient's goal is gain better control over her pain and nausea. Ongoing monitoring/adjustments for pain and nausea. * Would plan to have ongoing pain discussions with patient in the coming days regarding prognosis, her overall condition, as well as options of hospice should she not desire further aggressive/invasive measures. If sx continue to worsen despite interventions, will need ongoing discussions RE goals-- as may be increasingly difficult to control pain and sx without lethargy and associated clinical decline-- if she ultimately does not WANT to pursue further palliative interventions such as radiation etc,or clinical conditions such that she cannot tolerate more tx, then would further discuss hospice option. * CODE STATUS: Full code * Discussed patient with bedside nurse Kaila. * SYMPTOMS: --Constipation-multifactorial: Large abdominal mass, abdominal imaging+ ileus , no SBO. Currently on bowel regimen, monitor effectiveness. Could still be 2/ 2 opiate use, though suspect compounded by mass, Relistor every other day as needed started on 04/04. Relistor given x2 03/24, 03/25, with bowel movements in the days following, last BM 03/28. still on bowel regimen. Could still be 2/2 opiate use, though suspect compounded by mass. --Nausea-multifactorial- Large abdominal mass, prev. abdominal imaging+ ileus , no SBO. Patient on antiemetics with refractory nausea likely 2/2 ileus, abdominal mass; nausea initially improved some on Haldol scheduled. 03/30/17: Haldol dose increased to 2mg q6 hrs. Patient started on low dose Decadron 2mg IV BID which may provide better symptom management of nausea, improved pain control and overall increased feeling of well being. Patient's nause has improved greatly, she has not required any PRN antiemetic medication and reports no episodes of nausea for several days. --Abdominal pain--multifactorial: Large abdominal mass, abdominal imaging+ ileus, no SBO. On 03/28/17: Started on Oramorph SR 30mg PO q12 hours. Increased PRN Dilaudid dose to 1.5mg q3 hours PRN on 03/31. 03/31:hydromorphone dose was increased by .5 mg, haldol was increased to 2 mg, and decadron was added. PRN requirements for the past couple of days: An average of about 5 PRN doses of 1.5 mg hydromorphone IV. On 03/30 the hydromorphone dose was increased by .5 mg, haldol was increased to 2 mg, and decadron was added. The patient has not required any PRN doses of antiemetic medication and verbalized her nausea has improved. Average IV hydromorphone utilization is greater than 100mg morphine oral equivalents a day, despite increasing oral morphine dose PRN requirements have remained unchanged plan to increase oral morphine from 60mg BID to 90mg BID today to decrease utilization of PRN hydromorphone. -- Malnutrition-poor oral intake secondary to abdominal pain, nausea and constipation. + Weight loss, unknown amount. Albumin 1.8 on 03/24. Oral intake has improved patient eating an average of 50%-100% of her meals since nausea has subsided. -- Palliative care will continue to follow during hospital course as condition evolves, to assist patient/decision-maker with understanding of medical conditions, weighing benefits/burdens of treatment options, for clarification of goals of treatment. Additionally will assist with any symptoms of palliative concern Attestation To help prompt me to consider important information that might be impacting today's encounter and assessment, information from prior notes written by myself or my colleagues may have been "brought forward" into today's note. My signature on this note, however, is an attestation that I personally performed the exam, history, and/or decision-making noted today, and, unless otherwise indicated, the interactions with patient, family, and staff as well as the review of records all occurred today. I also attest that the listed assessment and stated plan reflect my best clinical judgment today based on the combination of historical information, prior notes, and today's exam/ interactions. When time spent is documented, it refers only to time spent today by the signer, or if indicated, combined time spent today by collaborating physician/nurse practitioner. Stephanie Jackson Apr 06, 2017 10:19
[2017-04-06] MEDS ORDERED: MORPHINE SULFATE 30 MG CONTROLLED RELEASE TAB PO ONE (10:45)
--- NOTE | 2017-04-06 10:46 | PD.WCN.NOT ---
Wound Consult Description: Consult placed for Wound Management of buttocks per Dr Gay Communicated with: Dr Victor Hugo Bright,RN Recommendation: Nystatin powder to inner thighs, groin, and buttocks BID and PRN after each cleansing. Additional Information: Patient seen on for buttock excoriations. Areas of the inner thighs, groin, perineum, and bilateral buttocks were visualized and noted with bright red blanching erythema and satellite lesions with denuded skin. Recommend to leave these areas open to air and apply Nystatin antifungal powder to the fungal rash described above. Estefania Castro [facility] Apr 06, 2017 10:46
[2017-04-06] MEDS: VANCOMYCIN INJ 750 MG in SODIUM CHLOR 0.9% 250 ML INJ 250 ML IV SCH (13:25)
[2017-04-06] MEDS: NYSTATIN 100,000 U/GM PWD 15 GM BTL TOPICAL SCH ×2 (13:26→20:06)
--- NOTE | 2017-04-06 15:06 | HHI.PR ---
Subjective Remarks The patient still has not had a bowel movement. She said she would prefer not to have an enema or suppository today. She had questions about her radiation treatments. She no other acute complaints. Objective Vitals Vital Signs Date Time Temp Pulse Resp B/P (MAP) Pulse Ox O2 Delivery O2 Flow Rate FiO2 04/06/17 11:50 97.5 100 20 146/97 (113) 97 04/06/17 09:22 100 Nasal Cannula 4.00 04/06/17 09:17 Nasal Cannula 4.00 04/06/17 07:50 97.4 108 20 132/72 (92) 96 04/06/17 05:59 19 04/06/17 04:00 98.5 89 17 147/87 (107) 97 04/06/17 00:00 96.4 89 17 132/68 (89) 92 04/05/17 21:34 20 04/05/17 21:00 97 Nasal Cannula 4.00 21 04/05/17 20:00 97.1 101 18 140/72 (94) 97 04/05/17 19:20 97 Nasal Cannula 4.00 04/05/17 15:50 97.6 90 20 125/65 (85) 93 I/O 04/05/17 04/05/17 04/05/17 04/06/17 04/06/17 04/06/17 07:00 15:00 23:00 07:00 15:00 23:00 Intake Total 240 ml 357 ml 696 ml Output Total 1450 ml 1400 ml 1500 ml Balance -1210 ml -1043 ml -804 ml Intake Oral 240 ml 357 ml 240 ml IV Total 456 ml Output Urine Total 1450 ml 1400 ml 1500 ml # Bowel Movements 0 # Sanitary Pads 2 Pads Result Diagram: 04/05/17 0733 04/05/17 0733 Imaging Last Impressions Abdomen X-Ray 04/05/17 0600 Signed Impressions: Service Date/Time: Wednesday, April 05, 2017 06:52 - CONCLUSION: Resolving small bowel ileus with progression of gas into the colon. Persistent gaseous distention of the colon. Giovanni Lennon MD Chest CT 04/03/17 0000 Signed Impressions: Service Date/Time: Monday, April 03, 2017 21:00 - CONCLUSION: 1. Right greater the left bibasilar consolidation and pleural effusions, worse. 2. Severe emphysema. Mateo Costa MD Chest X-Ray 04/02/17 0000 Signed Impressions: Service Date/Time: Sunday, April 02, 2017 10:39 - CONCLUSION: 1. Severe emphysema with bullous change at the left upper lung zone. 2. Increased interstitial and airspace opacities in the lower lung zones bilaterally with small right pleural effusion. Mateo Ma MD Abdomen/Pelvis CT 03/27/17 0000 Signed Impressions: Service Date/Time: Monday, March 27, 2017 20:57 - CONCLUSION: 1. Interval placement of right pigtail stent catheter with residual mild right hydronephrosis. 2. Large pelvic mass again noted without significant change. 3. Abnormal bowel gas pattern most consistent with an ileus. 4. New small bilateral pleural effusions and anasarca. Altaf Sanches MD Objective Remarks GENERAL: Alert, oriented 3. HEAD: Normocephalic. EYES: EOMI. NECK: trachea midline. CARDIOVASCULAR: Regular rate and without murmurs. RESPIRATORY: Decreased air movement. GASTROINTESTINAL: Slightly tender on palpation and distended. MUSCULOSKELETAL: moves extremities, some edema noted. PSYCH: Mood and affect appropriate. 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 Medications and IVs Current Medications Medications (Trade) Dose Ordered Sig/Mata Route Start Time Stop Time Status Last Admin (NS Flush) 2 ml UNSCH PRN IV FLUSH 03/18/17 14:15 03/28/17 07:37 (NS Flush) 2 ml BID IV FLUSH 03/18/17 21:00 04/06/17 08:32 (Zofran Inj) 4 mg Q6H PRN IVP 03/18/17 14:15 03/30/17 09:44 (Narcan Inj) 0.4 mg UNSCH PRN IV 03/18/17 14:15 (Tylenol) 650 mg Q4H PRN PO 03/19/17 16:45 03/21/17 17:30 Levofloxacin/ Dextrose 150 ml @ 100 mls/hr Q24H IV 03/19/17 17:00 04/05/17 18:23 (Dilaudid Pf Inj) 0.5 mg Q3H PRN IV 03/20/17 14:15 Future Hold (Protonix) 40 mg Q24H PO 03/22/17 17:00 04/05/17 18:23 (Sharon-Colace) 1 tab BID PO 03/22/17 21:00 04/06/17 08:31 (Milk Of Magnesia Liq) 30 ml Q12H PRN PO 03/22/17 19:30 03/23/17 13:26 (Senokot) 17.2 mg Q12H PRN PO 03/22/17 19:30 03/23/17 11:20 (Dulcolax Supp) 10 mg DAILY PRN RECTAL 03/22/17 19:30 03/31/17 13:03 (Lactulose Liq) 30 ml DAILY PRN PO 03/22/17 19:30 03/29/17 09:18 (Reglan Inj) 10 mg Q8H PRN IV PUSH 03/24/17 11:00 03/30/17 12:58 (Vasotec Inj) 1.25 mg Q6H PRN IV PUSH 03/27/17 19:30 03/29/17 14:31 (Apresoline) 10 mg Q6H PRN PO 03/27/17 19:30 (Haldol) 2 mg Q6HR PO 03/30/17 18:00 04/06/17 13:25 (Decadron Inj) 2 mg BID@0800,1400 IV PUSH 03/30/17 14:45 04/06/17 13:33 (Lopressor) 12.5 mg Q12HR PRN PO 04/01/17 21:00 (Duoneb Neb) 1 ampule Q2HR NEB PRN NEB 04/02/17 10:30 (Ativan) 0.5 mg Q6H PRN PO 04/02/17 21:00 04/06/17 00:21 Pharmacy Profile Note 0 ml @ 0 mls/hr UNSCH OTHER 04/04/17 09:15 ([place] [facility]) 1 lozenge UNSCH PRN BUCCAL 04/04/17 09:45 (Relistor Inj) 8 mg EVERY OTHER DAY SQ 04/04/17 18:00 04/06/17 08:35 (Oramorph Sr) 60 mg Q12HR PO 04/06/17 21:00 (Oramorph Sr) 30 mg Q12HR PO 04/06/17 21:00 (Dilaudid Pf Inj) 1.5 mg Q4HR PRN IV PUSH 04/06/17 10:30 (Mycostatin Powder) 1 applic Q12HR TOPICAL 04/06/17 13:00 04/06/17 13:26 Vancomycin HCl 1000 mg/Sodium Chloride 250 ml @ 250 mls/hr Q12H IV 04/07/17 01:00 Miscellaneous Information SPECIFIC LAB TO BE HOLGER... ONCE ONCE .XX 04/08/17 12:45 04/08/17 12:46 (Dulcolax Ec) 10 mg ONCE ONCE PO 04/06/17 15:15 04/06/17 15:16 UNV A/P Problem List: (1) Post-menopausal bleeding ICD Code: N95.0 - Postmenopausal bleeding Status: Acute (2) Pelvic mass in female ICD Code: R19.00 - Pelvic mass in female Status: Acute Assessment and Plan 57-year-old female admitted secondary to UTI and sepsis. S/p right stent placement for obstructive uropathy. Escherichia coli UTI/ Escherichia coli bacteremia - Continue Levaquin IV per infectious disease. - Urine and blood cultures are positive for Escherichia coli. Urinary obstruction/ Moderate right Hydronephrosis/ Uterine carcinosarcoma/ Vaginal bleeding Status post cystoscopy, long-term right ureteral stent insertion. - Radiation treatments to decrease tumor burden. - Palliative chemotherapy after radiation will be considered by gynecological oncology. Not a candidate for surgery due to extensive tumor burden. - will continue Morphine extended release 30 mg BID and continue Dilaudid as breakthrough pain. - Palliative Radiotherapy. COPD/ HCAP Decreased air movement. Imaging with emphysematous changes. Chest x-ray with severe bullous emphysema. Pulmonology consult appreciated. CT chest with bibasilar consolidation, pleural effusions. - standing and as needed nebs. - continue Levaquin IV. Added IV vancomycin. - IS. - Pulmonology following. - repeat CXR in a.m. Constipation/Ileus Patient on various laxatives. KUB 04/05 with improvement. - Continue bowel regimen. Relistor added. Dulcolax 10 mg by mouth 1. Enema if no improvement. - GI consult if does not continue to improve. Anasarca Secondary to her basal pathology. - s/p albumin IV. Buttocks/ groin fungal rash Nursing mentions excoriations to the buttocks area. - Wound care nurse consult appreciated. Nystatin powder added for fungal rash. DVT prophylaxis with SCDs. Discharge Planning Awaiting clinical improvement Altaf Gay DO Apr 06, 2017 15:06
[2017-04-06] MEDS ORDERED: BISACODYL EC 5 MG TABEC PO ONE (15:15)
--- NOTE | 2017-04-06 16:12 | HHI.PR ---
Subjective Remarks alert no sob Objective Vital Signs Date Time Temp Pulse Resp B/P (MAP) Pulse Ox O2 Delivery O2 Flow Rate FiO2 04/06/17 11:50 97.5 100 20 146/97 (113) 97 04/06/17 09:22 100 Nasal Cannula 4.00 04/06/17 09:17 Nasal Cannula 4.00 04/06/17 07:50 97.4 108 20 132/72 (92) 96 04/06/17 05:59 19 04/06/17 04:00 98.5 89 17 147/87 (107) 97 04/06/17 00:00 96.4 89 17 132/68 (89) 92 04/05/17 21:34 20 04/05/17 21:00 97 Nasal Cannula 4.00 21 04/05/17 20:00 97.1 101 18 140/72 (94) 97 04/05/17 19:20 97 Nasal Cannula 4.00 I/O 04/05/17 04/05/17 04/05/17 04/06/17 04/06/17 04/06/17 07:00 15:00 23:00 07:00 15:00 23:00 Intake Total 240 ml 357 ml 696 ml 298 ml Output Total 1450 ml 1400 ml 1500 ml 2100 ml Balance -1210 ml -1043 ml -804 ml -1802 ml Intake Oral 240 ml 357 ml 240 ml 298 ml IV Total 456 ml Output Urine Total 1450 ml 1400 ml 1500 ml 2100 ml # Voids 0 # Bowel Movements 0 # Sanitary Pads 2 Pads Result Diagram: 04/05/17 0704/05/17 0733 Procedures 03/21/2017 Cystoscopy, right retrograde pyelogram and 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 HEAD: Atraumatic. Normocephalic. EYES: Pupils equal and round. No scleral icterus. No injection or drainage. ENT: No nasal bleeding or discharge. Mucous membranes pink and moist. NECK: Trachea midline. No JVD. CARDIOVASCULAR: Regular rate and rhythm. RESPIRATORY: No accessory muscle use. Clear to auscultation. Breath sounds equal bilaterally. GASTROINTESTINAL: Abdomen soft, non-tender, nondistended. Hepatic and splenic margins not palpable. MUSCULOSKELETAL: Extremities without clubbing, cyanosis, or edema. No obvious deformities. NEUROLOGICAL: Awake and alert. No obvious cranial nerve deficits. Motor grossly within normal limits. Five out of 5 muscle strength in the arms and legs. Normal speech. PSYCHIATRIC: Appropriate mood and affect; insight and judgment normal. Assessment and Plan Assessment and Plan BIBASILAR ATELECTASIS EFFUSION COPD UTERINE SARCOMA PLAN O2 NEEDED BRONCHODILATOR THERAPY INCREASE ACTIVITY Jared Coleman MD Apr 06, 2017 16:12
[2017-04-06] MEDS: PANTOPRAZOLE SOD 40 MG DELAYED RELEASE TAB PO SCH (17:49)
[2017-04-06] MEDS: LEVOFLOXACIN 750 MG PREMIX INJ 150 ML IV SCH (17:49)
--- NOTE | 2017-04-06 18:29 | RADRPT ---
EXAM DATE/TIME: 04/06/2017 18:05 [place] COMPARISON: CT THORAX W/O CONTRAST, April 03, 2017, 21:00. CHEST SINGLE AP, April 02, 2017, 10:39. INDICATIONS : Shortness of breath; pleural effusion. MEDICAL HISTORY : None. SURGICAL HISTORY : None. ENCOUNTER: Initial ACUITY: 1 week PAIN SCORE: 0/10 LOCATION: Bilateral chest FINDINGS: Left greater than right bullous emphysematous changes again noted. Basilar predominant chronic appear ing interstitial opacities are again seen. Small right pleural effusion, decreased in size. Left pleu ral effusion appears substantially resolved. I don't see a pneumothorax. CONCLUSION: 1. Decreased pleural effusion on the right, now small. 2. Almost completely resolved left pleural effusion. 3. Fibroemphysematous changes are again noted. Mateo Costa MD on April 06, 2017 at 18:26 Board Certified Radiologist. This report was verified electronically.
[2017-04-06] MEDS: MORPHINE SULFATE 30 MG CONTROLLED RELEASE TAB PO SCH (20:04)
[2017-04-07] VITALS (8 sets, daily range): BP systolic 114–139; BP diastolic 62–85; PULSE 95–103; RESP 16–20; TEMP 96.6–99.4; O2SAT 93–98
[2017-04-07] MEDS: VANCOMYCIN 1,000 MG/NS 250 ML IV SCH ×4 (00:46→11:40)
--- NOTE | 2017-04-07 05:36 | RADRPT ---
EXAM DATE/TIME: 04/07/2017 04:45 [facility] COMPARISON: CHEST SINGLE AP, April 02, 2017, 10:39. INDICATIONS : Evaluate for pneumonia. Shortness of breath and cough. MEDICAL HISTORY : None. SURGICAL HISTORY : None. ENCOUNTER: Subsequent ACUITY: 1 month PAIN SCORE: 0/10 LOCATION: chest FINDINGS: A single view of the chest demonstrates stable biapical emphysematous changes with a large bleb on th e left. Prominent interstitial markings in the bases are stable with a right-sided effusion which may be slightly improved when compared to prior. Heart size is normal. Osseous structures are intact. CONCLUSION: 1. Severe biapical emphysematous changes, particularly on the left there is a large bleb. 2. Bibasilar mixed interstitial and airspace processes with some improvement on the right. Associated right-sided effusion.. Jovan Gaviria MD on April 07, 2017 at 5:32 Board Certified Radiologist. This report was verified electronically.
--- NOTE | 2017-04-07 06:04 | RADRPT ---
EXAM DATE/TIME: 04/07/2017 04:46 [facility] COMPARISON: ABDOMEN KUB ONLY, April 05, 2017, 6:52. INDICATIONS : Evalauate for ileus. MEDICAL HISTORY : Uterince cancer. SURGICAL HISTORY : None. ENCOUNTER: Subsequent ACUITY: 2 weeks PAIN SCORE: 3/10 LOCATION: Abdomen FINDINGS: Supine view of the abdomen was performed. On prior exams, there was significant gaseous distention of the colon and small bowel loops. This appears to be improving with some air distention of bowel loop s only in the upper abdomen. Right-sided double-J stent is unchanged in position. Osseous structures are intact. No pneumoperitoneum. CONCLUSION: Plain film findings characteristic of a resolving hypodynamic ileus. Jovan Gaviria MD on April 07, 2017 at 6:01 Board Certified Radiologist. This report was verified electronically.
[2017-04-07] MEDS: HALOPERIDOL 2 MG TAB PO SCH ×2 (06:27→11:40)
[2017-04-07] MEDS: LORazepam 0.5 MG TAB PO PRN ×2 (06:30→21:27)
[2017-04-07] MEDS: RESP: ALBUTEROL 2.5 MG/IPRATROPIUM 0.5 MG NEB (PRN) NEB ×2 (07:40→20:14)
[2017-04-07] MEDS: MORPHINE SULFATE 30 MG CONTROLLED RELEASE TAB PO SCH (07:53)
[2017-04-07] MEDS: DOCUSATE SODIUM 50 MG/SENNA 8.6 MG TAB PO SCH ×2 (07:53→21:27)
[2017-04-07] MEDS: MORPHINE SULFATE 60 MG CONTROLLED RELEASE TAB PO SCH ×2 (07:53→21:27)
[2017-04-07] MEDS: NYSTATIN 100,000 U/GM PWD 15 GM BTL TOPICAL SCH ×2 (07:54→21:29)
[2017-04-07] MEDS: SODIUM CHLORIDE 0.9% FLUSH 10 ML FLUSH IV FLUSH SCH ×2 (07:54→21:29)
[2017-04-07] MEDS: DEXAMETHASONE SOD PHOS 4 MG/ML VIAL IV PUSH SCH ×2 (08:00→14:00)
--- NOTE | 2017-04-07 08:56 | HHI.PR ---
Subjective Remarks alert no sob Objective Vital Signs Date Time Temp Pulse Resp B/P (MAP) Pulse Ox O2 Delivery O2 Flow Rate FiO2 04/07/17 08:26 Nasal Cannula 4.00 04/07/17 07:41 98 Nasal Cannula 3.50 04/07/17 04:00 99.4 100 20 129/72 (91) 97 04/07/17 03:40 19 04/07/17 00:00 97.8 102 18 130/79 (96) 96 04/06/17 22:00 20 04/06/17 22:00 19 04/06/17 21:00 100 Nasal Cannula 4.00 33 04/06/17 20:07 97.0 96 16 148/81 (103) 100 04/06/17 15:50 97.6 104 20 153/75 (101) 96 04/06/17 11:50 97.5 100 20 146/97 (113) 97 04/06/17 09:22 100 Nasal Cannula 4.00 04/06/17 09:17 Nasal Cannula 4.00 I/O 04/06/17 04/06/17 04/06/17 04/07/17 04/07/17 04/07/17 07:00 15:00 23:00 07:00 15:00 23:00 Intake Total 696 ml 298 ml 960 ml Output Total 1500 ml 2100 ml 750 ml 1200 ml Balance -804 ml -1802 ml -750 ml -240 ml Intake Oral 240 ml 298 ml 960 ml IV Total 456 ml Output Urine Total 1500 ml 2100 ml 1200 ml Stool Total 750 ml # Voids 0 # Sanitary Pads 2 Pads Result Diagram: 04/05/17 0704/05/17 07 Procedures 03/21/2017 Cystoscopy, right retrograde pyelogram and shelter right ureteral stent insertion Objective Remarks GENERAL: SKIN: Warm and dry. HEAD: Atraumatic. Normocephalic. EYES: Pupils equal and round. No scleral icterus. No injection or drainage. ENT: No nasal bleeding or discharge. Mucous membranes pink and moist. NECK: Trachea midline. No JVD. CARDIOVASCULAR: Regular rate and rhythm. RESPIRATORY: No accessory muscle use. Clear to auscultation. Breath sounds equal bilaterally. GASTROINTESTINAL: Abdomen soft, non-tender, nondistended. Hepatic and splenic margins not palpable. MUSCULOSKELETAL: Extremities without clubbing, cyanosis, or edema. No obvious deformities. NEUROLOGICAL: Awake and alert. No obvious cranial nerve deficits. Motor grossly within normal limits. Five out of 5 muscle strength in the arms and legs. Normal speech. PSYCHIATRIC: Appropriate mood and affect; insight and judgment normal. GENERAL: SKIN: Warm and dry. HEAD: Atraumatic. Normocephalic. EYES: Pupils equal and round. No scleral icterus. No injection or drainage. ENT: No nasal bleeding or discharge. Mucous membranes pink and moist. NECK: Trachea midline. No JVD. CARDIOVASCULAR: Regular rate and rhythm. RESPIRATORY: No accessory muscle use. Clear to auscultation. Breath sounds equal bilaterally. GASTROINTESTINAL: Abdomen soft, non-tender, nondistended. Hepatic and splenic margins not palpable. MUSCULOSKELETAL: Extremities without clubbing, cyanosis, or edema. No obvious deformities. NEUROLOGICAL: Awake and alert. No obvious cranial nerve deficits. Motor grossly within normal limits. Five out of 5 muscle strength in the arms and legs. Normal speech. PSYCHIATRIC: Appropriate mood and affect; insight and judgment normal. Assessment and Plan Assessment and Plan BIBASILAR ATELECTASIS EFFUSION COPD UTERINE SARCOMA PLAN O2 NEEDED BRONCHODILATOR THERAPY INCREASE ACTIVITY F/U Jared Donohue MD Apr 07, 2017 08:56
[2017-04-07] MEDS ORDERED: BISACODYL 10 MG SUPP RECTAL ONE (11:00)
--- NOTE | 2017-04-07 11:04 | HHI.PR ---
Subjective Remarks The patient was sleeping. When she woke up she said she had no acute complaints. She still has not had a bowel movement but feels like she may soon. She did seem interested in pursuing a suppository. She was anxious to find out when radiation therapy would be set up so she could go home soon. Objective Vitals Vital Signs Date Time Temp Pulse Resp B/P (MAP) Pulse Ox O2 Delivery O2 Flow Rate FiO2 04/07/17 08:26 Nasal Cannula 4.00 04/07/17 07:41 98 Nasal Cannula 3.50 04/07/17 04:00 99.4 100 20 129/72 (91) 97 04/07/17 03:40 19 04/07/17 00:00 97.8 102 18 130/79 (96) 96 04/06/17 22:00 20 04/06/17 22:00 19 04/06/17 21:00 100 Nasal Cannula 4.00 33 04/06/17 20:07 97.0 96 16 148/81 (103) 100 04/06/17 15:50 97.6 104 20 153/75 (101) 96 04/06/17 11:50 97.5 100 20 146/97 (113) 97 I/O 04/06/17 04/06/17 04/06/17 04/07/17 04/07/17 04/07/17 06:59 14:59 22:59 06:59 14:59 22:59 Intake Total 696 ml 298 ml 960 ml Output Total 1500 ml 2100 ml 750 ml 1200 ml Balance -804 ml -1802 ml -750 ml -240 ml Intake Oral 240 ml 298 ml 960 ml IV Total 456 ml Output Urine Total 1500 ml 2100 ml 1200 ml Stool Total 750 ml # Voids 0 # Sanitary Pads 2 Pads Result Diagram: 04/05/17 0733 04/05/17 0733 Imaging Last Impressions Chest X-Ray 04/06/17 0000 Signed Impressions: Service Date/Time: March 18:05 - CONCLUSION: 1. Decreased pleural effusion on the right, now small. 2. Almost completely resolved left pleural effusion. 3. Fibroemphysematous changes are again noted. Mateo Costa MD Abdomen X-Ray 04/05/17 0600 Signed Impressions: Service Date/Time: Wednesday, April 05, 2017 06:52 - CONCLUSION: Resolving small bowel ileus with progression of gas into the colon. Persistent gaseous distention of the colon. Giovanni Lennon MD Chest CT 04/03/17 0000 Signed Impressions: Service Date/Time: Monday, April 03, 2017 21:00 - CONCLUSION: 1. Right greater the left bibasilar consolidation and pleural effusions, worse. 2. Severe emphysema. Mateo Costa MD Abdomen/Pelvis CT 03/27/17 0000 Signed Impressions: Service Date/Time: Monday, March 27, 2017 20:57 - CONCLUSION: 1. Interval placement of right pigtail stent catheter with residual mild right hydronephrosis. 2. Large pelvic mass again noted without significant change. 3. Abnormal bowel gas pattern most consistent with an ileus. 4. New small bilateral pleural effusions and anasarca. Altaf Sanches MD Objective Remarks GENERAL: Alert, oriented 3. HEAD: Normocephalic. EYES: EOMI. NECK: trachea midline. CARDIOVASCULAR: Regular rate and without murmurs. RESPIRATORY: Decreased air movement. GASTROINTESTINAL: Slightly tender on palpation and distended. MUSCULOSKELETAL: moves extremities, some edema noted. PSYCH: Mood and affect appropriate. Procedures 03/21/2017 Cystoscopy, right retrograde pyelogram and salvage determiner right ureteral stent insertion Medications and IVs Current Medications Medications (Trade) Dose Ordered Sig/Mata Route Start Time Stop Time Status Last Admin (NS Flush) 2 ml UNSCH PRN IV FLUSH 03/18/17 14:15 03/28/17 07:37 (NS Flush) 2 ml BID IV FLUSH 03/18/17 21:00 04/07/17 07:54 (Zofran Inj) 4 mg Q6H PRN IVP 03/18/17 14:15 03/30/17 09:44 (Narcan Inj) 0.4 mg UNSCH PRN IV 03/18/17 14:15 (Tylenol) 650 mg Q4H PRN PO 03/19/17 16:45 03/21/17 17:30 Levofloxacin/ Dextrose 150 ml @ 100 mls/hr Q24H IV 03/19/17 17:00 04/06/17 17:49 (Dilaudid Pf Inj) 0.5 mg Q3H PRN IV 03/20/17 14:15 Future Hold (Protonix) 40 mg Q24H PO 03/22/17 17:00 04/06/17 17:49 (Sharon-Colace) 1 tab BID PO 03/22/17 21:00 04/07/17 07:53 (Milk Of Magnesia Liq) 30 ml Q12H PRN PO 03/22/17 19:30 03/23/17 13:26 (Senokot) 17.2 mg Q12H PRN PO 03/22/17 19:30 03/23/17 11:20 (Dulcolax Supp) 10 mg DAILY PRN RECTAL 03/22/17 19:30 03/31/17 13:03 (Lactulose Liq) 30 ml DAILY PRN PO 03/22/17 19:30 03/29/17 09:18 (Reglan Inj) 10 mg Q8H PRN IV PUSH 03/24/17 11:00 03/30/17 12:58 (Vasotec Inj) 1.25 mg Q6H PRN IV PUSH 03/27/17 19:30 03/29/17 14:31 (Apresoline) 10 mg Q6H PRN PO 03/27/17 19:30 (Haldol) 2 mg Q6HR PO 03/30/17 18:00 04/07/17 06:27 (Decadron Inj) 2 mg BID@0800,1400 IV PUSH 03/30/17 14:45 04/07/17 08:00 (Lopressor) 12.5 mg Q12HR PRN PO 04/01/17 21:00 (Duoneb Neb) 1 ampule Q2HR NEB PRN NEB 04/02/17 10:30 04/07/17 07:40 (Ativan) 0.5 mg Q6H PRN PO 04/02/17 21:00 04/07/17 06:30 Pharmacy Profile Note 0 ml @ 0 mls/hr UNSCH OTHER 04/04/17 09:15 ([place] [facility]) 1 lozenge UNSCH PRN BUCCAL 04/04/17 09:45 (Relistor Inj) 8 mg EVERY OTHER DAY SQ 04/04/17 18:00 04/06/17 08:35 (Oramorph Sr) 60 mg Q12HR PO 04/06/17 21:00 04/07/17 07:53 (Oramorph Sr) 30 mg Q12HR PO 04/06/17 21:00 04/07/17 07:53 (Dilaudid Pf Inj) 1.5 mg Q4HR PRN IV PUSH 04/06/17 10:30 04/06/17 22:30 (Mycostatin Powder) 1 applic Q12HR TOPICAL 04/06/17 13:00 04/07/17 07:54 Vancomycin HCl 1000 mg/Sodium Chloride 250 ml @ 250 mls/hr Q12H IV 04/07/17 01:00 04/07/17 00:46 Miscellaneous Information SPECIFIC LAB TO BE ... ONCE ONCE .XX 04/08/17 12:45 04/08/17 12:46 A/P Problem List: (1) Post-menopausal bleeding ICD Code: N95.0 - Postmenopausal bleeding Status: Acute (2) Pelvic mass in female ICD Code: R19.00 - Pelvic mass in female Status: Acute Assessment and Plan 57-year-old female admitted secondary to UTI and sepsis. S/p right stent placement for obstructive uropathy. Escherichia coli UTI/ Escherichia coli bacteremia Urine and blood cultures are positive for Escherichia coli. - Continue Levaquin IV per infectious disease. Urinary obstruction/ Moderate right Hydronephrosis/ Uterine carcinosarcoma/ Vaginal bleeding Appreciate urology consultation.Status post cystoscopy, long-term right ureteral stent insertion. - Radiation treatments to decrease tumor burden. - Palliative chemotherapy after radiation will be considered by gynecological oncology. Not a candidate for surgery due to extensive tumor burden. - will continue Morphine extended release 30 mg BID and continue Dilaudid as breakthrough pain. COPD/ HCAP Decreased air movement. Imaging with emphysematous changes. Chest x-ray with severe bullous emphysema. Pulmonology consult appreciated. CT chest with bibasilar consolidation, pleural effusions. Repeat imaging with improved pleural effusions, severe emphysema. - standing and as needed nebs. - continue IV Levaquin and vancomycin. May switch vancomycin to linezolid upon discharge per ID. - IS. - Pulmonology following. - Encourage ambulation. Constipation/Ileus Patient on various laxatives. KUB 04/07 with resolving ileus. The patient still has not had a bowel movement. - Continue bowel regimen. Relistor added. Dulcolax suppository ordered. Anasarca Secondary to her basal pathology. - s/p albumin IV. Buttocks/ groin fungal rash Nursing mentions excoriations to the buttocks area. - Wound care nurse consult appreciated. Nystatin powder added for fungal rash. DVT prophylaxis with SCDs. Discharge Planning Awaiting resolution of ileus. The patient will also need clearance from gynecological oncology and will need outpatient radiation set up. Altaf Gay DO Apr 07, 2017 11:04
[2017-04-07] MEDS ORDERED: HALOPERIDOL 2 MG TAB PO PRN (16:15)
--- NOTE | 2017-04-07 16:27 | HHI.HCPN ---
Reason for visit a. To assist with evaluation and management of symptoms including: pain, nausea b. To assist medical decision maker(s) with: better understanding of current medical conditions; weighing benefits/burdens of medical treatment options; making medical treatment decisions. (Stephanie Jackson) Subjective/Interval History Patient seen today to evaluate pain management. Received a call from bedside RN that the patient has been increasingly lethargic since her oral morphine dose was increased from 60mg BID to 90mg BID yesterday, the patient has not utilized any PRN doses of hydromorphone since last night at 2230. To exam patient is more difficult to arouse, once she is engaged in conversation and she sits up she is able to maintain wakefulness, she is however slow to answer questions and slightly confused at times. The patient endorses she is pain free at this time, she has had no episodes of nausea and vomiting. The patient reports she is still experiencing intermittent echoing in her ears, she states it has not worsened and remains the same. The patient still has not had a bowel movement since 03/28/17. Discussed with bedside RN and patient. Plan to decrease oral morphine back to 60mg BID and change scheduled haldol 2mg q 6hr to PRN q 6hr for nausea. (Stephanie Jackson) Advance Directives Living Will: Never completed Health Care Surrogate: Never completed Durable Power of Castings Drafter: Never completed (Stephanie Jackson) Objective Vital Signs Date Time Temp Pulse Resp B/P (MAP) Pulse Ox O2 Delivery O2 Flow Rate FiO2 04/07/17 12:00 98.5 95 18 114/62 (79) 94 04/07/17 09:00 98.7 103 18 126/72 (90) 93 04/07/17 08:26 Nasal Cannula 4.00 04/07/17 07:41 98 Nasal Cannula 3.50 04/07/17 04:00 99.4 100 20 129/72 (91) 97 04/07/17 03:40 19 04/07/17 00:00 97.8 102 18 130/79 (96) 96 04/06/17 22:00 20 04/06/17 22:00 19 04/06/17 21:00 100 Nasal Cannula 4.00 33 04/06/17 20:07 97.0 96 16 148/81 (103) 100 Intake & Output 04/07/17 04/07/17 07:00 19:00 Intake Total 960 ml Output Total 1200 ml 900 ml Balance -240 ml -900 ml Intake Oral 960 ml Output Urine Total 1200 ml 900 ml # Sanitary Pads 2 Pads Physical Exam CONSTITUTIONAL/GENERAL: This is a thin very pleasant female patient. TUBES/LINES/DRAINS: PIV right forearm, pak catheter CARDIOVASCULAR: Regular rate and rhythm. No murmurs. No JVD. Peripheral pulses symmetric. Peripheral pulses palpable. RESPIRATORY/CHEST: Symmetric, unlabored respirations.Clear to auscultation. Breath sounds equal bilaterally. On 2L NC. GASTROINTESTINAL: Abdomen flat, nondistended. Bowel sounds active. GENITOURINARY: Without palpable bladder distension. Pak catheter in place. NEUROLOGICAL: Awake and alert. Oriented 3, appropriate. Insight appears good. Motor and sensory grossly within normal limits. Follows commands. Cognitively sharp. Moves all extremities. PSYCHIATRIC: No obvious anxiety/depression. no apparent hallucinations or other psychotic thought process. . (Renetta,Stephanie MCKEON) Diagnostic Tests Laboratory Laboratory Tests Test 04/05/17 07:33 04/05/17 22:55 White Blood Count 12.3 TH/MM3 (4.0-11.0) Red Blood Count 3.75 MIL/MM3 (4.00-5.30) Hemoglobin 10.4 GM/DL (11.6-15.3) Hematocrit 31.1 % (35.0-46.0) Mean Corpuscular Volume 82.9 FL (80.0-100.0) Mean Corpuscular Hemoglobin 27.7 PG (27.0-34.0) Mean Corpuscular Hemoglobin Concent 33.4 % (32.0-36.0) Red Cell Distribution Width 14.0 % (11.6-17.2) Platelet Count 564 TH/MM3 (150-450) Mean Platelet Volume 7.0 FL (7.0-11.0) Blood Urea Nitrogen 13 MG/DL (7-18) Creatinine 0.55 MG/DL (0.50-1.00) Random Glucose 110 MG/DL (74-106) Calcium Level 8.6 MG/DL (8.5-10.1) Magnesium Level 2.0 MG/DL (1.5-2.5) Sodium Level 134 MEQ/L (136-145) Potassium Level 3.7 MEQ/L (3.5-5.1) Chloride Level 95 MEQ/L (98-107) Carbon Dioxide Level 31.7 MEQ/L (21.0-32.0) Anion Gap 7 MEQ/L (5-15) Estimat Glomerular Filtration Rate 115 ML/MIN (>89) Vancomycin Level Trough 8.8 MCG/ML (5.0-10.0) (Stephanie Jackson) Result Diagram: 04/05/17 0733 04/05/17 07 Imaging Last 72 hours Impressions Chest X-Ray 04/07/17 0600 Signed Impressions: Service Date/Time: Friday, April 07, 2017 04:45 - CONCLUSION: 1. Severe biapical emphysematous changes, particularly on the left there is a large bleb. 2. Bibasilar mixed interstitial and airspace processes with some improvement on the right. Associated right-sided effusion.. Jovan Gaviria MD Abdomen X-Ray 04/07/17 0600 Signed Impressions: Service Date/Time: Friday, April 07, 2017 04:46 - CONCLUSION: Plain film findings characteristic of a resolving hypodynamic ileus. Jovan Gaviria MD Chest X-Ray 04/06/17 0000 Signed Impressions: Service Date/Time: March 18:05 - CONCLUSION: 1. Decreased pleural effusion on the right, now small. 2. Almost completely resolved left pleural effusion. 3. Fibroemphysematous changes are again noted. Mateo Costa MD Abdomen X-Ray 04/05/17 0600 Signed Impressions: Service Date/Time: Wednesday, April 05, 2017 06:52 - CONCLUSION: Resolving small bowel ileus with progression of gas into the colon. Persistent gaseous distention of the colon. Giovanni Lennon MD . 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 x35 yrs. Originally from [place], is here with green card and legal resident. Has lived in [place] for 30+ years Spiritual: No particular pentecostalism affiliation, prays on her own. Does not desire manager of loss prevention operations support at this time Legal:Patient is currently alert, oriented and able to make her own decisions. She does not have advanced directives or HCS. Per [place] statutes if she became incapacitated her would be legal decision maker. Patient has verbally indicated that she would want him to be her legal decision maker. Offered assistance with advanced directive, HCS during hospitalization, she does not wish to complete at this time, palliative available to assist if she desires. Ethical issues impacting care: None known. Important Contacts Nicolas Jara [phone] Silvia Davis friend [phone] . Prognosis Patient appears to have advanced malignancy process recent pathology indicative of uterine carcinosarcoma. She has expansive tumor burden which is not amenable to surgical intervention. Currently receiving palliative peritoneal radiation started 03/30, current goal is to reduce pain and tumor burden. Possibly may be offered palliative chemotherapy depending on her performance status. She is very high risk for complications, decline related to advanced disease process and current sequelae she is experiencing secondary to pelvic mass. Appropriate for hospice if goals compatible in the future. . Code Status: Full Code Plan Legal decision maker: Patient is currently alert, oriented and able to make her own decisions. She does not have advanced directives or HCS. Per [place] statutes if she became incapacitated her would be legal decision maker. Patient has verbally indicated today that she would want him to be her legal decision maker. Offered assistance with advanced directive, HCS during hospitalization, she does not wish to complete at this time palliative available to assist if she desires. * Goals: Patient's goal is gain better control over her pain and nausea. Ongoing monitoring/adjustments for pain and nausea. * Would plan to have ongoing pain discussions with patient in the coming days regarding prognosis, her overall condition, as well as options of hospice should she not desire further aggressive/invasive measures. If sx continue to worsen despite interventions, will need ongoing discussions RE goals-- as may be increasingly difficult to control pain and sx without lethargy and associated clinical decline-- if she ultimately does not WANT to pursue further palliative interventions such as radiation etc,or clinical conditions such that she cannot tolerate more tx, then would further discuss hospice option. * Plan to decrease oral morphine back to 60mg BID and change scheduled haldol 2mg q 6hr to PRN q 6hr for nausea due to lethargy and resolution of nausea. * CODE STATUS: Full code * Discussed patient with bedside nurse Kaila. * SYMPTOMS: --Constipation-multifactorial: Large abdominal mass, abdominal imaging+ ileus , no SBO. Currently on bowel regimen, monitor effectiveness. Could still be 2/ 2 opiate use, though suspect compounded by mass, Relistor every other day as needed started on 04/04. Relistor given x2 03/24, 03/25, with bowel movements in the days following, last BM 03/28. still on bowel regimen. Could still be 2/2 opiate use, though suspect compounded by mass. --Nausea-multifactorial- Large abdominal mass, prev. abdominal imaging+ ileus , no SBO. Patient on antiemetics with refractory nausea likely 2/2 ileus, abdominal mass; nausea initially improved some on Haldol scheduled. 03/30/17: Haldol dose increased to 2mg q6 hrs. Patient started on low dose Decadron 2mg IV BID which may provide better symptom management of nausea, improved pain control and overall increased feeling of well being. Patient's nause has improved greatly, she has not required any PRN antiemetic medication and reports no episodes of nausea for several days. 04/07/17: Haldol changed from scheduled to PRN due to resolution of nausea and lethargy. --Abdominal pain--multifactorial: Large abdominal mass, abdominal imaging+ ileus, no SBO. On 03/28/17: Started on Oramorph SR 30mg PO q12 hours. Increased PRN Dilaudid dose to 1.5mg q3 hours PRN on 03/31. 03/31:hydromorphone dose was increased by .5 mg, haldol was increased to 2 mg, and decadron was added. 04/06: PRN requirements for the past couple of days: An average of about 5 PRN doses of 1.5 mg hydromorphone IV. On 03/30 the hydromorphone dose was increased by .5 mg, haldol was increased to 2 mg, and decadron was added. The patient has not required any PRN doses of antiemetic medication and verbalized her nausea has improved. Average IV hydromorphone utilization is greater than 100mg morphine oral equivalents a day, despite increasing oral morphine dose PRN requirements have remained unchanged plan to increase oral morphine from 60mg BID to 90mg BID today to decrease utilization of PRN hydromorphone. -- Malnutrition-poor oral intake secondary to abdominal pain, nausea and constipation. + Weight loss, unknown amount. Albumin 1.8 on 03/24. Oral intake has improved patient eating an average of 50%-100% of her meals since nausea has subsided. -- Palliative care will continue to follow during hospital course as condition evolves, to assist patient/decision-maker with understanding of medical conditions, weighing benefits/burdens of treatment options, for clarification of goals of treatment. Additionally will assist with any symptoms of palliative concern (Stephanie Jackson) Plan Patient seen in dual visit with MIKE Magallon. Sleeping on entrance, aroused easily, tended to doze at the beginning of the visit but then sat up and was awake, coherent and interactive. She states her pain is completely controlled and has no discomfort at this time. Discussed dose reduction with patient and RN. Will continue PRN Dilaudid and reduce morphine act to 60 mg twice daily and monitor response. Patient also noted no nausea and so will convert Haldol to as needed and continue other anti-emetics at this time. (Paula Islas) Attestation To help prompt me to consider important information that might be impacting today's encounter and assessment, information from prior notes written by myself or my colleagues may have been "brought forward" into today's note. My signature on this note, however, is an attestation that I personally performed the exam, history, and/or decision-making noted today, and, unless otherwise indicated, the interactions with patient, family, and staff as well as the review of records all occurred today. I also attest that the listed assessment and stated plan reflect my best clinical judgment today based on the combination of historical information, prior notes, and today's exam/ interactions. When time spent is documented, it refers only to time spent today by the signer, or if indicated, combined time spent today by collaborating physician/nurse practitioner. (Paula Islas) Stephanie Jackson Apr 07, 2017 4:27 pm Paula Islas Apr 07, 2017 4:56 pm
[2017-04-07] MEDS: PANTOPRAZOLE SOD 40 MG DELAYED RELEASE TAB PO SCH (17:03)
[2017-04-07] MEDS: LEVOFLOXACIN 750 MG PREMIX INJ 150 ML IV SCH (17:03)
[2017-04-07] MEDS: MAGNESIUM HYDROXIDE SUSP 30 ML CUP PO PRN (21:26)
[2017-04-08] VITALS (8 sets, daily range): BP systolic 111–176; BP diastolic 60–85; PULSE 94–113; RESP 12–20; TEMP 96.9–98.8; O2SAT 93–97
[2017-04-08] MEDS: VANCOMYCIN 1,000 MG/NS 250 ML IV SCH ×4 (01:20→19:16)
[2017-04-08] MEDS: HYDROmorphone HCL PF 1 MG/ML VIAL IV PUSH PRN ×5 (04:35→23:25)
[2017-04-08 07:29] LABS: AUTOMATED NEUTROPHIL # 10.3 TH/MM3 (1.8-7.7); BASOPHIL % 0.4 % (0.0-2.0); EOSINOPHIL # 0.5 TH/MM3 (0-0.4); EOSINOPHIL % 3.7 % (0.0-4.0); HEMATOCRIT 31.4 % (35.0-46.0); HEMO FLAGS DIFF FINAL; LYMPHOCYTE # 0.9 TH/MM3 (1.0-4.8); MEAN CELL VOLUME 83.8 FL (80.0-100.0); MEAN CORPUSCULAR HEMOGLOBIN 27.1 PG (27.0-34.0); MEAN CORPUSCULAR HGB CONC 32.3 % (32.0-36.0); MONO % 6.9 % (0.0-8.0); PLATELET COUNT 438 TH/MM3 (150-450); RED BLOOD COUNT 3.75 MIL/MM3 (4.00-5.30); RED CELL DISTRIBUTION WIDTH 14.1 % (11.6-17.2); WHITE BLOOD COUNT 12.5 TH/MM3 (4.0-11.0)
[2017-04-08] MEDS: MAGNESIUM HYDROXIDE SUSP 30 ML CUP PO PRN (10:04)
[2017-04-08] MEDS: MORPHINE SULFATE 60 MG CONTROLLED RELEASE TAB PO SCH ×2 (10:05→20:35)
[2017-04-08] MEDS: ONDANSETRON HCL 4 MG/2 ML VIAL IVP PRN (10:05)
[2017-04-08] MEDS: DOCUSATE SODIUM 50 MG/SENNA 8.6 MG TAB PO SCH ×2 (10:06→20:34)
[2017-04-08] MEDS: SODIUM CHLORIDE 0.9% FLUSH 10 ML FLUSH IV FLUSH SCH ×2 (10:11→20:33)
[2017-04-08] MEDS: NYSTATIN 100,000 U/GM PWD 15 GM BTL TOPICAL SCH ×2 (10:11→20:37)
--- NOTE | 2017-04-08 10:12 | HHI.PR ---
Subjective Remarks Follow-up for multiple conditions listed in assessment plan Patient complaining of shortness of breathing. She stated that it has not improved. Patient stated that she had this since hospitalization. She has no other complaints. Patient remains afebrile. Objective Vitals Vital Signs Date Time Temp Pulse Resp B/P (MAP) Pulse Ox O2 Delivery O2 Flow Rate FiO2 04/08/17 05:46 19 04/08/17 04:00 96.9 95 16 153/85 (107) 95 04/08/17 00:00 97.6 99 16 135/76 (95) 96 04/07/17 22:40 19 04/07/17 21:00 95 Nasal Cannula 3.50 33 04/07/17 20:00 96.6 96 17 119/85 (96) 96 04/07/17 17:41 96 Nasal Cannula 3.50 04/07/17 16:00 97.1 98 16 139/76 (97) 96 04/07/17 12:00 98.5 95 18 114/62 (79) 94 I/O 04/07/17 04/07/17 04/07/17 04/08/17 04/08/17 04/08/17 07:00 15:00 23:00 07:00 15:00 23:00 Intake Total 960 ml 720 ml 480 ml 480 ml Output Total 1200 ml 1800 ml 2000 ml 850 ml Balance -240 ml -1080 ml -1520 ml -370 ml Intake Oral 960 ml 720 ml 480 ml 480 ml Output Urine Total 1200 ml 1800 ml 2000 ml 850 ml # Bowel Movements 1 # Sanitary Pads 2 Pads Result Diagram: 04/08/17 0555 04/08/17 0555 Imaging Last Impressions Chest X-Ray 04/07/17599 Signed Impressions: Service Date/Time: Friday, April 07, 2017 04:45 - CONCLUSION: 1. Severe biapical emphysematous changes, particularly on the left there is a large bleb. 2. Bibasilar mixed interstitial and airspace processes with some improvement on the right. Associated right-sided effusion.. Jovan Gaviria MD Abdomen X-Ray 04/07/17 06 Signed Impressions: Service Date/Time: Friday, April 07, 2017 04:46 - CONCLUSION: Plain film findings characteristic of a resolving hypodynamic ileus. Jovan Gaviria MD Chest CT 04/03/17 0000 Signed Impressions: Service Date/Time: Monday, April 03, 2017 21:00 - CONCLUSION: 1. Right greater the left bibasilar consolidation and pleural effusions, worse. 2. Severe emphysema. Mateo Costa MD Abdomen/Pelvis CT 03/27/17 0000 Signed Impressions: Service Date/Time: Monday, March 27, 2017 20:57 - CONCLUSION: 1. Interval placement of right pigtail stent catheter with residual mild right hydronephrosis. 2. Large pelvic mass again noted without significant change. 3. Abnormal bowel gas pattern most consistent with an ileus. 4. New small bilateral pleural effusions and anasarca. Altaf Sanches MD Objective Remarks GENERAL: Chronically ill appearing female no acute distress CARDIOVASCULAR: Regular rate and rhythm without murmurs, gallops, or rubs. RESPIRATORY: B mild crackles in the left basilar area otherwise very distant lung sounds. Cannot appreciate any rhonchi or wheezing. No accessory muscle use. GASTROINTESTINAL: Abdomen soft, non-tender, nondistended. MUSCULOSKELETAL: No cyanosis, or edema. Procedures 03/21/2017 Cystoscopy, right retrograde pyelogram and alf right ureteral stent insertion Medications and IVs Current Medications Sodium Chloride 1,000 ml @ 999 mls/hr BOLUS ONCE IV Last administered on 03/18 12:12; Start 03/18/17 at 12:15; Stop 03/18/17 at 13:15; Status DC Sodium Chloride 1,000 ml @ 999 mls/hr BOLUS ONCE IV Last administered on 03/18 12:57; Start 03/18/17 at 12:15; Stop 03/18/17 at 13:15; Status DC Ondansetron HCl (Zofran Inj) 4 mg ONCE ONCE IV PUSH Last administered on 12:12; Start 03/18/17 at 12:15; Stop 03/18/17 at 12:16; Status DC Hydromorphone HCl (Dilaudid Pf Inj) 0.5 mg ONCE ONCE IV PUSH Last administered on 03/18/17 12:12; Start 03/18/17 at 12:15; Stop 03/18/17 at 12:16 ; Status DC Vancomycin HCl 600 mg/Sodium Chloride 256 ml @ 262.5 mls/ hr ONCE STAT IV Last administered on 03/18/17 14:28; Start 03/18/17 at 12:07; Stop 03/18/17 at 13:05; Status DC Piperacillin Sod/ Tazobactam Sod 100 ml @ 200 mls/hr ONCE STAT IV Last administered on 03/18/17 13:57; Start 03/18/17 at 12:07; Stop 03/18/17 at 12:36 ; Status DC Metronidazole 100 ml @ 100 mls/hr ONCE STAT IV Last administered on 12:34; Start 03/18/17 at 12:07; Stop 03/18/17 at 13:06; Status DC Sodium Chloride 1,000 ml @ 999 mls/hr BOLUS ONCE IV Last administered on 03/18 15:26; Start 03/18/17 at 12:45; Stop 03/18/17 at 13:45; Status DC Sodium Chloride 1,000 ml @ 250 mls/hr Q4H ONCE IV ; Start 03/18/17 at 12:45; Stop 03/18/17 at 16:44; Status DC Hydromorphone HCl (Dilaudid Pf Inj) 0.5 mg ONCE ONCE IV PUSH Last administered on 03/18/17 13:57; Start 03/18/17 at 14:00; Stop 03/18/17 at 14:01 ; Status DC Pharmacy Profile Note 0 ml @ 0 mls/hr UNSCH OTHER ; Start 03/18/17 at 14:15; Stop 03/19/17 at 12:55; Status DC Piperacillin Sod/ Tazobactam Sod 50 ml @ 100 mls/hr Q6H IV Last administered on 03/20/17 08:24; Start 03/18/17 at 20:00; Stop 03/20/17 at 10:59; Status DC Pantoprazole Sodium (Protonix Inj) 40 mg Q24H IV PUSH Last administered on 03/21 14:14; Start 03/18/17 at 15:00; Stop 03/22/17 at 10:38; Status DC Sodium Chloride (NS Flush) 2 ml UNSCH PRN IV FLUSH FLUSH AFTER USING IV ACCESS Last administered on 03/28/17 07:37; Start 03/18/17 at 14:15 Sodium Chloride (NS Flush) 2 ml BID IV FLUSH Last administered on 04/07/17 21: 29; Start 03/18/17 at 21:00 Ondansetron HCl (Zofran Inj) 4 mg Q6H PRN IVP NAUSEA OR VOMITING Last administered on 03/30/17 09:44; Start 03/18/17 at 14:15 Hydromorphone HCl (Dilaudid Pf Inj) 0.3 mg Q3H PRN IV Pain 3-5; if unable to take PO; Start 03/18/17 at 14:15; Stop 03/20/17 at 11:23; Status DC Hydromorphone HCl (Dilaudid Pf Inj) 0.5 mg Q3H PRN IV Pain 6-10;if unable to take PO Last administered on 03/20/17 08:25; Start 03/18/17 at 14:15; Stop at 11:23; Status DC Hydromorphone HCl (Dilaudid Pf Inj) 0.5 mg Q3H PRN IV BREAKTHROUGH PAIN Last administered on 03/24/17 13:26; Start 03/18/17 at 14:15; Stop 03/24/17 at 17:40; Status DC Naloxone HCl (Narcan Inj) 0.4 mg UNSCH PRN IV SEE LABEL COMMENTS; Start at 14:15 Vancomycin HCl 750 mg/Sodium Chloride 257.5 ml @ 250 mls/hr Q24H IV ; Start at 15:00; Stop 03/19/17 at 15:00; Status DC Miscellaneous Information SPECIFIC LAB TO BE DRAWN:VANCO TROUGH DATE TO... ONCE ONCE .XX ; Start 03/21/17 at 14:45; Stop 03/21/17 at 14:45; Status DC Iohexol (Omnipaque 350 Inj) 90 ml STK-MED ONCE IVCONTRAST Last administered on 03/18/17 13:45; Start 03/18/17 at 13:45; Stop 03/18/17 at 14:31; Status DC Furosemide (Lasix Inj) 20 mg ONCE ONCE IV PUSH Last administered on 03/18/17 16:21; Start 03/18/17 at 16:15; Stop 03/18/17 at 16:17; Status DC Potassium Chloride 100 ml @ 50 mls/hr ONCE ONCE IV Last administered on 16:26; Start 03/18/17 at 16:15; Stop 03/18/17 at 18:14; Status DC Albuterol Sulfate (Albuterol Neb) 0.63 mg Q4HR NEB PRN NEB sob; Start 03/18/17 at 16:15; Stop 03/22/17 at 19:23; Status DC Potassium Chloride 10 meq/ Dextrose/Sodium Chloride 1,005 ml @ 75 mls/hr [id number] IV Last administered on 04/02/17 00:01; Start 03/19/17 at 13:30; Stop 04/02/17 at 10:16; Status DC Acetaminophen (Tylenol) 650 mg Q4H PRN PO TEMPERATURE > 100.5 F Last administered on 03/21/17 17:30; Start 03/19/17 at 16:45 Levofloxacin/ Dextrose 150 ml @ 100 mls/hr Q24H IV Last administered on 17:03; Start 03/19/17 at 17:00 Hydromorphone HCl (Dilaudid Pf Inj) 0.5 mg Q3H PRN IV Pain 3-5; if unable to take PO; Start 03/20/17 at 14:15; Status Future Hold Hydromorphone HCl (Dilaudid Pf Inj) 1 mg Q3H PRN IV Pain 6-10;if unable to take PO Last administered on 03/21/17 14:15; Start 03/20/17 at 14:15; Stop 03/30 at 14:36; Status DC Calcium Carbonate (Oscal) 500 mg ONCE ONCE PO Last administered on 03/21/17 11:48; Start 03/21/17 at 08:15; Stop 03/21/17 at 08:25; Status DC Fentanyl Citrate (fentaNYL INJ) 100 mcg STK-MED ONCE .ROUTE ; Start 03/21/17 at 08:15; Stop 03/21/17 at 08:16; Status DC Iohexol (Omnipaque 350 Inj) 50 ml ONCE ONCE .XX Last administered on 08:52; Start 03/21/17 at 08:51; Stop 03/21/17 at 08:52; Status DC Morphine Sulfate (*morphine INJ PERIprocedure ONLY) 8 mg STK-MED ONCE .ROUTE Last administered on 03/21/17 09:18; Start 03/21/17 at 09:18; Stop 03/21/17 at 09:19; Status DC Miscellaneous Information ALL NURSING DEPARTME... UNSCH PRN .XX SEE LABEL COMMENTS; Start 03/21/17 at 09:05; Stop 03/22/17 at 09:04; Status DC Oxycodone/ Acetaminophen (Percocet 5-325 Mg) 1 tab Q4H PRN PO Pain 3 to 6 Last administered on 03/23/17 04:39; Start 03/21/17 at 14:45; Stop 03/24/17 at 08:53; Status DC Oxycodone/ Acetaminophen (Percocet 7.5-325 Mg) 1 tab Q4H PRN PO Pain 3-5 Last administered on 03/24/17 08:23; Start 03/21/17 at 14:45; Stop 03/28/17 at 13:26; Status DC Potassium Chloride (KCl Powder) 40 meq ONCE ONCE PO Last administered on 20:35; Start 03/21/17 at 19:00; Stop 03/21/17 at 19:15; Status DC Pantoprazole Sodium (Protonix) 40 mg Q24H PO Last administered on 04/07/17 17: 03; Start 03/22/17 at 17:00 Albuterol/ Ipratropium (Duoneb Neb) 1 ampule Q4HR NEB PRN NEB Dyspnea Last administered on 03/31/17 05:33; Start 03/22/17 at 19:30; Stop 03/31/17 at 11:05; Status DC Senna/Docusate Sodium ([place]-Colace) 1 tab BID PO Last administered on 21:27; Start 03/22/17 at 21:00 Magnesium Hydroxide (Milk Of Magnesia Liq) 30 ml Q12H PRN PO MILD - MODERATE CONSTIPATION Last administered on 04/07/17 21:26; Start 03/22/17 at 19:30 Sennosides (Senokot) 17.2 mg Q12H PRN PO MODERATE - SEVERE CONSTIPATION Last administered on 03/23/17 11:20; Start 03/22/17 at 19:30 Bisacodyl (Dulcolax Supp) 10 mg DAILY PRN RECTAL SEVERE CONSITIPATION Last administered on 03/31/17 13:03; Start 03/22/17 at 19:30 Lactulose (Lactulose Liq) 30 ml DAILY PRN PO SEVERE CONSITIPATION Last administered on 03/29/17 09:18; Start 03/22/17 at 19:30 Oxycodone/ Acetaminophen (Percocet 10-325 Mg) 1 tab Q4H PRN PO PAIN SCALE 6 TO 10 Last administered on 03/28/17 12:53; Start 03/24/17 at 11:00; Stop 03/28/17 at 13:26; Status DC Metoclopramide HCl (Reglan Inj) 10 mg Q8H PRN IV PUSH SEE LABEL COMMENTS Last administered on 03/30/17 12:58; Start 03/24/17 at 11:00 Haloperidol (Haldol) 1 mg Q6HR PO Last administered on 03/30/17 12:52; Start at 18:00; Stop 03/30/17 at 14:18; Status DC Methylnaltrexone [place] (Relistor Inj) 12 mg DAILY SQ Last administered on 03/25 08:09; Start 03/24/17 at 16:30; Stop 03/25/17 at 16:29; Status DC Hydromorphone HCl (Dilaudid Pf Inj) 1 mg Q3H PRN IV BREAKTHROUGH PAIN Last administered on 03/30/17 12:56; Start 03/24/17 at 20:15; Stop 03/30/17 at 14:21; Status DC Hydromorphone HCl (Dilaudid Pf Inj) 1 mg ONCE ONCE IV PUSH Last administered on 03/24/17 18:27; Start 03/24/17 at 17:45; Stop 03/24/17 at 17:46; Status DC Potassium Chloride 100 ml @ 50 mls/hr Q2H IV Last administered on 03/25/17 11: 35; Start 03/25/17 at 09:15; Stop 03/25/17 at 13:14; Status DC Potassium Chloride 0 ml @ As Directed STK-MED ONCE .ROUTE ; Start 03/25/17 at 16: 00; Stop 03/25/17 at 16:01; Status DC Diatrizoate Meglum/ Diatrizoate Sod ( Gastrotwila Liq) 18 ml ONCE ONCE PO Last administered on 03/27/17 18:03; Start 03/27/17 at 17:30; Stop 03/27/17 at 17: 31; Status DC Enalaprilat (Vasotec Inj) 1.25 mg Q6H PRN IV PUSH BP > 160/90 Last administered on 03/29/17 14:31; Start 03/27/17 at 19:30 Hydralazine HCl (Apresoline) 10 mg Q6H PRN PO BP > 160/90; Start 03/27/17 at 19: 30 Iohexol (Omnipaque 350 Inj) 70 ml STK-MED ONCE IVCONTRAST Last administered on 03/27/17 21:10; Start 03/27/17 at 21:10; Stop 03/27/17 at 21:11; Status DC Morphine Sulfate (Oramorph Sr) 30 mg Q12HR PO Last administered on 04/04/17 08 :11; Start 03/28/17 at 21:00; Stop 04/04/17 at 12:21; Status DC Haloperidol (Haldol) 2 mg Q6HR PO Last administered on 04/07/17 06:27; Start 03/30/17 at 18:00; Stop 04/07/17 at 16:14; Status DC Hydromorphone HCl (Dilaudid Pf Inj) 1.5 mg Q3H PRN IV PUSH PAIN SCALE 7 TO 10 Last administered on 04/06/17 05:15; Start 03/30/17 at 14:30; Stop 04/06/17 at 10:25; Status DC Dexamethasone Sodium Phosphate (Decadron Inj) 2 mg BID@0800,1400 IV PUSH Last administered on 04/07/17 14:00; Start 03/30/17 at 14:45 Albuterol/ Ipratropium (Duoneb Neb) 1 ampule Q4HR NEB NEB ; Start 03/31/17 at 12 :00; Stop 03/31/17 at 15:39; Status DC Ipratropium [place] (Atrovent Neb) 0.5 mg Q4HR NEB NEB Last administered on 12:09; Start 03/31/17 at 16:00; Stop 04/03/17 at 22:23; Status DC Budesonide (Pulmicort Respule Neb) 0.5 mg Q12HR NEB NEB Last administered on 20:12; Start 03/31/17 at 20:00; Stop 04/02/17 at 10:16; Status DC Metoprolol Tartrate (Lopressor) 12.5 mg ONCE ONCE PO Last administered on 17:40; Start 03/31/17 at 16:15; Stop 03/31/17 at 16:16; Status DC Metoprolol Tartrate (Lopressor) 12.5 mg Q12HR PO Last administered on 04/01/17 07:55; Start 03/31/17 at 21:00; Stop 04/01/17 at 10:59; Status DC Albumin Human (Albumin 25% Inj) 25 gm Q12H IV Last administered on 04/03/17 22 :13; Start 04/01/17 at 11:00; Stop 04/04/17 at 05:00; Status DC Metoprolol Tartrate (Lopressor) 12.5 mg Q12HR PRN PO TACHYCARDIA; Start at 21:00 Potassium Bicarb/ Potassium Chloride (K-[place] Cl Eff) 25 meq ONCE ONCE PO Last administered on 04/02/17 10:50; Start 04/02/17 at 10:30; Stop 04/02/17 at 10:31; Status DC Polyethylene Glycol (Miralax) 17 gm ONCE ONCE PO Last administered on 13:23; Start 04/02/17 at 11:00; Stop 04/02/17 at 11:01; Status DC Albuterol/ Ipratropium (Duoneb Neb) 1 ampule Q6HR WHILE AWAKE NEB NEB Last administered on 04/06/17 09:20; Start 04/02/17 at 14:00; Stop 04/06/17 at 13:59 ; Status DC Albuterol/ Ipratropium (Duoneb Neb) 1 ampule Q2HR NEB PRN NEB dyspnea Last administered on 04/07/17 20:14; Start 04/02/17 at 10:30 Lorazepam (Ativan) 0.5 mg Q6H PRN PO anxiety Last administered on 04/07/17 21: 27; Start 04/02/17 at 21:00 Bisacodyl (Dulcolax Ec) 10 mg ONCE ONCE PO Last administered on 04/03/17 11: 22; Start 04/03/17 at 10:00; Stop 04/03/17 at 10:01; Status DC Vancomycin HCl 750 mg/Sodium Chloride 257.5 ml @ 250 mls/hr Q12H IV Last administered on 04/06/17 13:25; Start 04/04/17 at 11:00; Stop 04/06/17 at 14:01 ; Status DC Pharmacy Profile Note 0 ml @ 0 mls/hr UNSCH OTHER ; Start 04/04/17 at 09:15 Menthol ([place]) 1 lozenge UNSCH PRN BUCCAL cough/ discomfort; Start at 09:45 Menthol ([place]) 1 lozenge ONCE ONCE BUCCAL Last administered on 04/04/17 10:11; Start 04/04/17 at 09:45; Stop 04/04/17 at 09:46; Status DC Lactulose (Lactulose Liq) 30 ml ONCE ONCE PO Last administered on 04/04/17 10 :11; Start 04/04/17 at 09:45; Stop 04/04/17 at 09:46; Status DC Polyethylene Glycol (Miralax) 17 gm ONCE ONCE PO Last administered on 10:11; Start 04/04/17 at 09:45; Stop 04/04/17 at 09:46; Status DC Mineral Oil (Fleet Mineral Oil Enema) 118 ml ONCE ONCE RECTAL ; Start 04/04/17 at 09:45; Stop 04/04/17 at 16:54; Status DC Miscellaneous Information SPECIFIC LAB TO BE DRAWN:VANCO TROUGH DATE TO... ONCE ONCE .XX Last administered on 04/05/17 22:55; Start 04/05/17 at 22:45; Stop 04/05/17 at 22:46; Status DC Morphine Sulfate (Oramorph Sr) 60 mg Q12HR PO Last administered on 04/06/17 08 :31; Start 04/04/17 at 21:00; Stop 04/06/17 at 10:23; Status DC Morphine Sulfate (Oramorph Sr) 30 mg ONCE ONCE PO Last administered on 12:35; Start 04/04/17 at 12:30; Stop 04/04/17 at 12:31; Status DC Methylnaltrexone [place] (Relistor Inj) 8 mg EVERY OTHER DAY SQ Last administered on 04/06/17 08:35; Start 04/04/17 at 18:00 Morphine Sulfate (Oramorph Sr) 60 mg Q12HR PO Last administered on 04/07/17 21 :27; Start 04/06/17 at 21:00 Morphine Sulfate (Oramorph Sr) 30 mg Q12HR PO Last administered on 04/07/17 07 :53; Start 04/06/17 at 21:00; Stop 04/07/17 at 16:14; Status DC Hydromorphone HCl (Dilaudid Pf Inj) 1.5 mg Q4HR PRN IV PUSH PAIN SCALE 7 TO 10 Last administered on 04/08/17 04:35; Start 04/06/17 at 10:30 Morphine Sulfate (Oramorph Sr) 30 mg ONCE ONCE PO Last administered on 13:26; Start 04/06/17 at 10:45; Stop 04/06/17 at 11:25; Status DC Nystatin (Mycostatin Powder) 1 applic Q12HR TOPICAL Last administered on 21:29; Start 04/06/17 at 13:00 Vancomycin HCl 1000 mg/Sodium Chloride 250 ml @ 250 mls/hr Q12H IV Last administered on 04/08/17 01:20; Start 04/07/17 at 01:00 Miscellaneous Information SPECIFIC LAB TO BE ... ONCE ONCE .XX ; Start 04/08 at 12:45; Stop 04/08/17 at 12:46 Bisacodyl (Dulcolax Ec) 10 mg ONCE ONCE PO Last administered on 04/06/17 17: 50; Start 04/06/17 at 15:15; Stop 04/06/17 at 15:16; Status DC Bisacodyl (Dulcolax Supp) 10 mg ONCE ONCE RECTAL Last administered on 17:02; Start 04/07/17 at 11:00; Stop 04/07/17 at 11:06; Status DC Haloperidol (Haldol) 2 mg Q6HR PRN PO Nausea; Start 04/07/17 at 16:15 A/P Problem List: (1) Post-menopausal bleeding ICD Code: N95.0 - Postmenopausal bleeding Status: Acute (2) Pelvic mass in female ICD Code: R19.00 - Pelvic mass in female Status: Acute Assessment and Plan 57-year-old female admitted secondary to UTI and sepsis. S/p right stent placement for obstructive uropathy. Escherichia coli UTI/ Escherichia coli bacteremia Urine and blood cultures are positive for Escherichia coli. - Continue Levaquin IV per infectious disease. Urinary obstruction/ Moderate right Hydronephrosis/ Uterine carcinosarcoma/ Vaginal bleeding Appreciate urology consultation.Status post cystoscopy, long-term right ureteral stent insertion. - Radiation treatments to decrease tumor burden. - Palliative chemotherapy after radiation will be considered by gynecological oncology. Not a candidate for surgery due to extensive tumor burden. - will continue Morphine extended release 30 mg BID and continue Dilaudid as breakthrough pain. Severe COPD/ HCAP Decreased air movement. Imaging with emphysematous changes. Chest x-ray with severe bullous emphysema. Pulmonology consult appreciated. CT chest with bibasilar consolidation, pleural effusions. Repeat imaging with improved pleural effusions, severe emphysema. - Patient states she does not like the nebulizer. Will schedule inhaler. -Most likely symptoms are due to severe COPD. We'll give Lasix due to pleural effusion. - continue IV Levaquin and vancomycin. May switch vancomycin to linezolid upon discharge per ID. - IS. - Pulmonology following. - Encourage ambulation. Constipation/Ileus Patient on various laxatives. KUB 04/07 with resolving ileus. The patient still has not had a bowel movement. - Continue bowel regimen. Relistor added. Dulcolax suppository ordered. Anasarca Secondary to her basal pathology. - s/p albumin IV. Buttocks/ groin fungal rash Nursing mentions excoriations to the buttocks area. - Wound care nurse consult appreciated. Nystatin powder added for fungal rash. DVT prophylaxis with SCDs. Dealt with patient's nurse regards to management. Yvonne Thomas MD Apr 08, 2017 10:12
[2017-04-08] MEDS ORDERED: PHARMACY ORDERED LAB ONE (12:45)
[2017-04-08] MEDS: DEXAMETHASONE SOD PHOS 4 MG/ML VIAL IV PUSH SCH ×2 (12:59→15:28)
[2017-04-08] MEDS: PANTOPRAZOLE SOD 40 MG DELAYED RELEASE TAB PO SCH (15:15)
[2017-04-08] MEDS: LEVOFLOXACIN 750 MG PREMIX INJ 150 ML IV SCH (15:15)
[2017-04-08] MEDS: ALBUTEROL SULFATE 90 MCG/ACT HFA 18 GM INHALER INH SCH ×4 (15:19→23:20)
[2017-04-08] MEDS: METHYLNALTREXONE BROMIDE 12 MG/0.6 ML VIAL SQ SCH (15:20)
[2017-04-08] MEDS: FUROSEMIDE 20 MG TAB PO SCH (15:27)
[2017-04-08] MEDS: LORazepam 0.5 MG TAB PO PRN (20:36)
[2017-04-09] VITALS (8 sets, daily range): BP systolic 110–144; BP diastolic 73–93; PULSE 84–95; RESP 14–16; TEMP 96.5–98.2; O2SAT 92–98
[2017-04-09] MEDS: VANCOMYCIN 1,000 MG/NS 250 ML IV SCH ×4 (01:50→12:29)
[2017-04-09] MEDS: HYDROmorphone HCL PF 1 MG/ML VIAL IV PUSH PRN ×5 (03:29→20:29)
[2017-04-09] MEDS: ALBUTEROL SULFATE 90 MCG/ACT HFA 18 GM INHALER INH SCH ×6 (04:00→23:23)
[2017-04-09 07:26] LABS: HEMATOCRIT 32.6 % (35.0-46.0); MEAN CELL VOLUME 83.9 FL (80.0-100.0); MEAN CORPUSCULAR HEMOGLOBIN 27.6 PG (27.0-34.0); MEAN CORPUSCULAR HGB CONC 32.9 % (32.0-36.0); PLATELET COUNT 378 TH/MM3 (150-450); RED BLOOD COUNT 3.89 MIL/MM3 (4.00-5.30); RED CELL DISTRIBUTION WIDTH 14.2 % (11.6-17.2); REVIEW FLAG FINAL; WHITE BLOOD COUNT 10.1 TH/MM3 (4.0-11.0)
[2017-04-09 07:49] LABS: BICARBONATE 33.2 MEQ/L (21.0-32.0); POTASSIUM 4.1 MEQ/L (3.5-5.1)
[2017-04-09] MEDS: MAGNESIUM HYDROXIDE SUSP 30 ML CUP PO PRN (08:04)
[2017-04-09] MEDS: FUROSEMIDE 20 MG TAB PO SCH (08:06)
[2017-04-09] MEDS: DOCUSATE SODIUM 50 MG/SENNA 8.6 MG TAB PO SCH ×2 (08:06→20:29)
[2017-04-09] MEDS: MORPHINE SULFATE 60 MG CONTROLLED RELEASE TAB PO SCH ×2 (08:06→20:29)
[2017-04-09] MEDS: SODIUM CHLORIDE 0.9% FLUSH 10 ML FLUSH IV FLUSH SCH ×2 (08:06→20:30)
[2017-04-09] MEDS: DEXAMETHASONE SOD PHOS 4 MG/ML VIAL IV PUSH SCH ×2 (08:08→12:29)
[2017-04-09] MEDS: NYSTATIN 100,000 U/GM PWD 15 GM BTL TOPICAL SCH ×2 (09:00→20:30)
[2017-04-09] MEDS: LEVOFLOXACIN 750 MG PREMIX INJ 150 ML IV SCH (16:28)
[2017-04-09] MEDS: PANTOPRAZOLE SOD 40 MG DELAYED RELEASE TAB PO SCH (16:28)
[2017-04-09] MEDS: LORazepam 0.5 MG TAB PO PRN (21:09)
[2017-04-09] MEDS: ACETAMINOPHEN 325 MG TAB PO PRN (23:22)
[2017-04-10] VITALS: BP 143/87; PULSE 93; RESP 16; TEMP 97; O2SAT 99
[2017-04-10] MEDS: HYDROmorphone HCL PF 1 MG/ML VIAL IV PUSH PRN ×2 (00:34→04:30)
[2017-04-10] MEDS: VANCOMYCIN 1,000 MG/NS 250 ML IV SCH ×4 (00:34→14:45)
[2017-04-10 04:00] VITALS: BP 134/81; PULSE 104; RESP 16; TEMP 96.3; O2SAT 98
[2017-04-10] MEDS: ALBUTEROL SULFATE 90 MCG/ACT HFA 18 GM INHALER INH SCH ×5 (04:26→20:13)
[2017-04-10 08:00] VITALS: BP 167/88; PULSE 116; RESP 20; TEMP 96.7; O2SAT 96
[2017-04-10] MEDS: DOCUSATE SODIUM 50 MG/SENNA 8.6 MG TAB PO SCH ×2 (08:02→20:14)
[2017-04-10] MEDS: FUROSEMIDE 20 MG TAB PO SCH (08:02)
[2017-04-10] MEDS: MORPHINE SULFATE 60 MG CONTROLLED RELEASE TAB PO SCH ×2 (08:03→20:14)
[2017-04-10] MEDS: SODIUM CHLORIDE 0.9% FLUSH 10 ML FLUSH IV FLUSH SCH ×2 (08:04→20:15)
[2017-04-10] MEDS: DEXAMETHASONE SOD PHOS 4 MG/ML VIAL IV PUSH SCH ×2 (08:06→14:45)
[2017-04-10] MEDS: NYSTATIN 100,000 U/GM PWD 15 GM BTL TOPICAL SCH ×2 (08:07→20:13)
[2017-04-10 08:08] LABS: HEMATOCRIT 31.3 % (35.0-46.0); MEAN CORPUSCULAR HEMOGLOBIN 27.1 PG (27.0-34.0); MEAN CORPUSCULAR HGB CONC 32.6 % (32.0-36.0); PLATELET COUNT 387 TH/MM3 (150-450); RED BLOOD COUNT 3.76 MIL/MM3 (4.00-5.30); RED CELL DISTRIBUTION WIDTH 13.9 % (11.6-17.2); REVIEW FLAG FINAL; WHITE BLOOD COUNT 10.2 TH/MM3 (4.0-11.0)
[2017-04-10] MEDS: METHYLNALTREXONE BROMIDE 12 MG/0.6 ML VIAL SQ SCH (08:11)
[2017-04-10 08:27] LABS: BICARBONATE 31.5 MEQ/L (21.0-32.0); POTASSIUM 3.9 MEQ/L (3.5-5.1)
[2017-04-10 08:52] VITALS: O2SAT 97
[2017-04-10] MEDS ORDERED: OXYGENDME NAS.CANULA (10:24)
[2017-04-10 12:49] VITALS: BP 132/81; PULSE 119; RESP 22; TEMP 97.6; O2SAT 98
--- NOTE | 2017-04-10 13:02 | HHI.HCPN ---
Reason for visit a. To assist with evaluation and management of symptoms including: pain, nausea b. To assist medical decision maker(s) with: better understanding of current medical conditions; weighing benefits/burdens of medical treatment options; making medical treatment decisions. Subjective/Interval History Patient evaluated today to assess pain management. The patient endorses that her pain is better controlled today and rates her pain 5/10, she show no visible signs or symptoms of pain, and appears to be resting comfortably. She has utilized 5 PRN doses of hydromorphone in the past 24 hours. Discussed with the patient the goal to decrease the utilization of the PRN IV hydromorphone. Will continue to monitor utilization of the PRN hydromorphone today and potentially adjust dose of long acting morphine tomorrow. The patient denies any nausea or vomiting. She received her 5th out of 33 radiation treatments today. The patient reports she is still experiencing intermittent echoing in her ears, she states it has not worsened and remains the same. The patient's last BM was 04/09/17. Discussed with bedside RN and patient. Advance Directives Living Will: Never completed Health Care Surrogate: Never completed Durable Power of Adding Machine Operator: Never completed Objective Vital Signs Date Time Temp Pulse Resp B/P (MAP) Pulse Ox O2 Delivery O2 Flow Rate FiO2 04/10/17 08:52 97 Nasal Cannula 3.00 04/10/17 08:00 96.7 116 20 167/88 (114) 96 04/10/17 05:00 16 04/10/17 04:00 96.3 104 16 134/81 (98) 98 04/10/17 00:20 18 04/10/17 00:00 97.0 93 16 143/87 (105) 99 04/09/17 22:20 97 Nasal Cannula 3.00 04/09/17 20:59 19 04/09/17 20:30 Nasal Cannula 1.50 04/09/17 20:00 96.5 95 16 144/93 (110) 98 04/09/17 16:00 98.1 90 14 131/77 (95) 92 Intake & Output 04/10/17 04/10/17 07:00 19:00 Intake Total 1920 ml Output Total 3000 ml Balance -1080 ml Intake Oral 1920 ml Output Urine Total 3000 ml Physical Exam CONSTITUTIONAL/GENERAL: This is a thin very pleasant female patient. TUBES/LINES/DRAINS: PIV right forearm, pak catheter CARDIOVASCULAR: Regular rate and rhythm. No murmurs. No JVD. Peripheral pulses symmetric. Peripheral pulses palpable. RESPIRATORY/CHEST: Symmetric, unlabored respirations.Clear to auscultation. Breath sounds equal bilaterally. On 2L NC. GASTROINTESTINAL: Abdomen flat, nondistended. Non tender. Bowel sounds active. GENITOURINARY: Without palpable bladder distension. Pak catheter in place. NEUROLOGICAL: Awake and alert. Oriented 3, appropriate. Insight appears good. Motor and sensory grossly within normal limits. Follows commands. Cognitively sharp. Moves all extremities. PSYCHIATRIC: No obvious anxiety/depression. no apparent hallucinations or other psychotic thought process. . Diagnostic Tests Laboratory Laboratory Tests Test 04/08/17 05:55 04/08/17 13:15 04/09/17 06:05 04/10/17 06:26 White Blood Count 12.5 TH/MM3 (4.0-11.0) 10.1 TH/MM3 (4.0-11.0) 10.2 TH/MM3 (4.0-11.0) Red Blood Count 3.75 MIL/MM3 (4.00-5.30) 3.89 MIL/MM3 (4.00-5.30) 3.76 MIL/MM3 (4.00-5.30) Hemoglobin 10.2 GM/DL (11.6-15.3) 10.7 GM/DL (11.6-15.3) 10.2 GM/DL (11.6-15.3) Hematocrit 31.4 % (35.0-46.0) 32.6 % (35.0-46.0) 31.3 % (35.0-46.0) Mean Corpuscular Volume 83.8 FL (80.0-100.0) 83.9 FL (80.0-100.0) 83.0 FL (80.0-100.0) Mean Corpuscular Hemoglobin 27.1 PG (27.0-34.0) 27.6 PG (27.0-34.0) 27.1 PG (27.0-34.0) Mean Corpuscular Hemoglobin Concent 32.3 % (32.0-36.0) 32.9 % (32.0-36.0) 32.6 % (32.0-36.0) Red Cell Distribution Width 14.1 % (11.6-17.2) 14.2 % (11.6-17.2) 13.9 % (11.6-17.2) Platelet Count 438 TH/MM3 (150-450) 378 TH/MM3 (150-450) 387 TH/MM3 (150-450) Mean Platelet Volume 7.5 FL (7.0-11.0) 7.5 FL (7.0-11.0) 7.5 FL (7.0-11.0) Neutrophils (%) (Auto) 82.0 % (16.0-70.0) Lymphocytes (%) (Auto) 7.0 % (9.0-44.0) Monocytes (%) (Auto) 6.9 % (0.0-8.0) Eosinophils (%) (Auto) 3.7 % (0.0-4.0) Basophils (%) (Auto) 0.4 % (0.0-2.0) Neutrophils # (Auto) 10.3 TH/MM3 (1.8-7.7) Lymphocytes # (Auto) 0.9 TH/MM3 (1.0-4.8) Monocytes # (Auto) 0.9 TH/MM3 (0-0.9) Eosinophils # (Auto) 0.5 TH/MM3 (0-0.4) Basophils # (Auto) 0.0 TH/MM3 (0-0.2) CBC Comment DIFF FINAL Differential Comment Creatinine 0.50 MG/DL (0.50-1.00) 0.51 MG/DL (0.50-1.00) 0.49 MG/DL (0.50-1.00) Estimat Glomerular Filtration Rate 128 ML/MIN (>89) 125 ML/MIN (>89) 131 ML/MIN (>89) Vancomycin Level Trough 14.4 MCG/ML (5.0-10.0) Blood Urea Nitrogen 12 MG/DL (7-18) 14 MG/DL (7-18) Random Glucose 107 MG/DL (74-106) 86 MG/DL (74-106) Calcium Level 9.0 MG/DL (8.5-10.1) 8.9 MG/DL (8.5-10.1) Sodium Level 134 MEQ/L (136-145) 134 MEQ/L (136-145) Potassium Level 4.1 MEQ/L (3.5-5.1) 3.9 MEQ/L (3.5-5.1) Chloride Level 95 MEQ/L (98-107) 97 MEQ/L (98-107) Carbon Dioxide Level 33.2 MEQ/L (21.0-32.0) 31.5 MEQ/L (21.0-32.0) Anion Gap 6 MEQ/L (5-15) 6 MEQ/L (5-15) Result Diagram: 04/10/17 0626 04/10/17 0626 Procedures 03/21/17 cystoscopy, right retrograde, right stent insertion 03/30/17- palliative peritoneal radiation treatment started Assessment and Plan Disease Oriented Problem List: (1) Carcinosarcoma of uterus (2) Pelvic mass in female (3) UTI (urinary tract infection) (4) Hydronephrosis, right (5) Hypoalbuminemia Symptom Scale: (1) Nausea (2) Pain, abdominal (3) Malnutrition (4) Constipation Pertinent Non-Medical Issues Psychosocial: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 x35 yrs. Originally from [place], is here with green card and legal resident. Has lived in [place] for 30+ years Spiritual: No particular uatsdin affiliation, prays on her own. Does not desire dietary assistant support at this time Legal:Patient is currently alert, oriented and able to make her own decisions. She does not have advanced directives or HCS. Per [place] statutes if she became incapacitated her would be legal decision maker. Patient has verbally indicated that she would want him to be her legal decision maker. Offered assistance with advanced directive, HCS during hospitalization, she does not wish to complete at this time, palliative available to assist if she desires. Ethical issues impacting care: None known. Important Contacts Nicolas Jara [phone] Silvia Susan friend [phone] . Prognosis Patient appears to have advanced malignancy process recent pathology indicative of uterine carcinosarcoma. She has expansive tumor burden which is not amenable to surgical intervention. Currently receiving palliative peritoneal radiation started 03/30, current goal is to reduce pain and tumor burden. Possibly may be offered palliative chemotherapy depending on her performance status. She is very high risk for complications, decline related to advanced disease process and current sequelae she is experiencing secondary to pelvic mass. Appropriate for hospice if goals compatible in the future. . Code Status: Full Code Plan * Legal decision maker: Patient is currently alert, oriented and able to make her own decisions. She does not have advanced directives or HCS. Per [place] statutes if she became incapacitated her would be legal decision maker. Patient has verbally indicated today that she would want him to be her legal decision maker. Offered assistance with advanced directive, HCS during hospitalization, she does not wish to complete at this time palliative available to assist if she desires. * Goals: Patient's goal is gain better control over her pain and nausea. Ongoing monitoring/adjustments for pain and nausea. * Would plan to have ongoing pain discussions with patient in the coming days regarding prognosis, her overall condition, as well as options of hospice should she not desire further aggressive/invasive measures. If sx continue to worsen despite interventions, will need ongoing discussions RE goals-- as may be increasingly difficult to control pain and sx without lethargy and associated clinical decline-- if she ultimately does not WANT to pursue further palliative interventions such as radiation etc,or clinical conditions such that she cannot tolerate more tx, then would further discuss hospice option. * Discussed with the patient the goal to decrease the utilization of the PRN IV hydromorphone. Will continue to monitor utilization of the PRN hydromorphone today and potentially adjust dose of long acting morphine tomorrow. * CODE STATUS: Full code * Discussed patient with bedside nurse Desiree. * SYMPTOMS: --Constipation-multifactorial: Large abdominal mass, abdominal imaging+ ileus , no SBO. Currently on bowel regimen, monitor effectiveness. Could still be 2/ 2 opiate use, though suspect compounded by mass, Relistor every other day as needed started on 04/04. Relistor given x2 03/24, 03/25, with bowel movements in the days following, last BM 04/09. still on bowel regimen. Could still be 2/2 opiate use, though suspect compounded by mass. --Nausea-multifactorial- Large abdominal mass, prev. abdominal imaging+ ileus , no SBO. Patient on antiemetics with refractory nausea likely 2/2 ileus, abdominal mass; nausea initially improved some on Haldol scheduled. 03/30/17: Haldol dose increased to 2mg q6 hrs. Patient started on low dose Decadron 2mg IV BID which may provide better symptom management of nausea, improved pain control and overall increased feeling of well being. Patient's nause has improved greatly, she has not required any PRN antiemetic medication and reports no episodes of nausea for several days. 04/07/17: Haldol changed from scheduled to PRN due to resolution of nausea and lethargy. --Abdominal pain--multifactorial: Large abdominal mass, abdominal imaging+ ileus, no SBO. On 03/28/17: Started on Oramorph SR 30mg PO q12 hours. Increased PRN Dilaudid dose to 1.5mg q3 hours PRN on 03/31. 03/31:hydromorphone dose was increased by .5 mg, haldol was increased to 2 mg, and decadron was added. 04/06: PRN requirements for the past couple of days: An average of about 5 PRN doses of 1.5 mg hydromorphone IV. On 03/30 the hydromorphone dose was increased by .5 mg, haldol was increased to 2 mg, and decadron was added. The patient has not required any PRN doses of antiemetic medication and verbalized her nausea has improved. Average IV hydromorphone utilization is greater than 100mg morphine oral equivalents a day, despite increasing oral morphine dose PRN requirements have remained unchanged plan to increase oral morphine from 60mg BID to 90mg BID today to decrease utilization of PRN hydromorphone. -- Malnutrition-poor oral intake secondary to abdominal pain, nausea and constipation. + Weight loss, unknown amount. Albumin 1.8 on 03/24. Oral intake has improved patient eating an average of 50%-100% of her meals since nausea has subsided. -- Palliative care will continue to follow during hospital course as condition evolves, to assist patient/decision-maker with understanding of medical conditions, weighing benefits/burdens of treatment options, for clarification of goals of treatment. Additionally will assist with any symptoms of palliative concern Attestation To help prompt me to consider important information that might be impacting today's encounter and assessment, information from prior notes written by myself or my colleagues may have been "brought forward" into today's note. My signature on this note, however, is an attestation that I personally performed the exam, history, and/or decision-making noted today, and, unless otherwise indicated, the interactions with patient, family, and staff as well as the review of records all occurred today. I also attest that the listed assessment and stated plan reflect my best clinical judgment today based on the combination of historical information, prior notes, and today's exam/ interactions. When time spent is documented, it refers only to time spent today by the signer, or if indicated, combined time spent today by collaborating physician/nurse practitioner. Stephanie Jackson Apr 10, 2017 13:02
--- NOTE | 2017-04-10 13:21 | HHI.PR ---
Subjective Remarks f/u for PNA, cancer and respiratory failure Patient breathing has improved. Denied any cough. She remains afebrile. Objective Vitals Vital Signs Date Time Temp Pulse Resp B/P (MAP) Pulse Ox O2 Delivery O2 Flow Rate FiO2 04/10/17 12:49 97.6 119 22 132/81 (98) 98 04/10/17 08:52 97 Nasal Cannula 3.00 04/10/17 08:00 96.7 116 20 167/88 (114) 96 04/10/17 05:00 16 04/10/17 04:00 96.3 104 16 134/81 (98) 98 04/10/17 00:20 18 04/10/17 00:00 97.0 93 16 143/87 (105) 99 04/09/17 22:20 97 Nasal Cannula 3.00 04/09/17 20:59 19 04/09/17 20:30 Nasal Cannula 1.50 04/09/17 20:00 96.5 95 16 144/93 (110) 98 04/09/17 16:00 98.1 90 14 131/77 (95) 92 I/O 04/09/17 04/09/17 04/09/17 04/10/17 04/10/17 04/10/17 07:00 15:00 23:00 07:00 15:00 23:00 Intake Total 480 ml 1020 ml 960 ml 960 ml Output Total 1850 ml 1402 ml 1000 ml 2000 ml Balance -1370 ml -382 ml -40 ml -1040 ml Intake Oral 480 ml 1020 ml 960 ml 960 ml Output Urine Total 1850 ml 1402 ml 1000 ml 2000 ml # Bowel Movements 0 # Sanitary Pads 2 Pads Result Diagram: 04/10/1762504/10/17625 Imaging Last Impressions Chest X-Ray 04/07/17599 Signed Impressions: Service Date/Time: Friday, April 07, 2017 04:45 - CONCLUSION: 1. Severe biapical emphysematous changes, particularly on the left there is a large bleb. 2. Bibasilar mixed interstitial and airspace processes with some improvement on the right. Associated right-sided effusion.. Jovan Gaviria MD Abdomen X-Ray 04/07/17599 Signed Impressions: Service Date/Time: Friday, April 07, 2017 04:46 - CONCLUSION: Plain film findings characteristic of a resolving hypodynamic ileus. Jovan Gaviria MD Chest CT 04/03/17 0000 Signed Impressions: Service Date/Time: Monday, April 03, 2017 21:00 - CONCLUSION: 1. Right greater the left bibasilar consolidation and pleural effusions, worse. 2. Severe emphysema. Mateo Costa MD Abdomen/Pelvis CT 03/27/17 0000 Signed Impressions: Service Date/Time: Monday, March 27, 2017 20:57 - CONCLUSION: 1. Interval placement of right pigtail stent catheter with residual mild right hydronephrosis. 2. Large pelvic mass again noted without significant change. 3. Abnormal bowel gas pattern most consistent with an ileus. 4. New small bilateral pleural effusions and anasarca. Altaf Sanches MD Objective Remarks GENERAL: Chronically ill appearing female no acute distress CARDIOVASCULAR: Regular rate and rhythm without murmurs, gallops, or rubs. + trace and 1 lower extremity edema RESPIRATORY: B mild crackles in the left basilar area otherwise very distant lung sounds. Cannot appreciate any rhonchi or wheezing. No accessory muscle use. GASTROINTESTINAL: Abdomen soft, non-tender, nondistended. Procedures 03/21/2017 Cystoscopy, right retrograde pyelogram and stock broker right ureteral stent insertion Medications and IVs Current Medications Sodium Chloride 1,000 ml @ 999 mls/hr BOLUS ONCE IV Last administered on 03/18 12:12; Start 03/18/17 at 12:15; Stop 03/18/17 at 13:15; Status DC Sodium Chloride 1,000 ml @ 999 mls/hr BOLUS ONCE IV Last administered on 03/18 12:57; Start 03/18/17 at 12:15; Stop 03/18/17 at 13:15; Status DC Ondansetron HCl (Zofran Inj) 4 mg ONCE ONCE IV PUSH Last administered on 12:12; Start 03/18/17 at 12:15; Stop 03/18/17 at 12:16; Status DC Hydromorphone HCl (Dilaudid Pf Inj) 0.5 mg ONCE ONCE IV PUSH Last administered on 03/18/17 12:12; Start 03/18/17 at 12:15; Stop 03/18/17 at 12:16 ; Status DC Vancomycin HCl 600 mg/Sodium Chloride 256 ml @ 262.5 mls/ hr ONCE STAT IV Last administered on 03/18/17 14:28; Start 03/18/17 at 12:07; Stop 03/18/17 at 13:05; Status DC Piperacillin Sod/ Tazobactam Sod 100 ml @ 200 mls/hr ONCE STAT IV Last administered on 03/18/17 13:57; Start 03/18/17 at 12:07; Stop 03/18/17 at 12:36 ; Status DC Metronidazole 100 ml @ 100 mls/hr ONCE STAT IV Last administered on 12:34; Start 03/18/17 at 12:07; Stop 03/18/17 at 13:06; Status DC Sodium Chloride 1,000 ml @ 999 mls/hr BOLUS ONCE IV Last administered on 03/18 15:26; Start 03/18/17 at 12:45; Stop 03/18/17 at 13:45; Status DC Sodium Chloride 1,000 ml @ 250 mls/hr Q4H ONCE IV ; Start 03/18/17 at 12:45; Stop 03/18/17 at 16:44; Status DC Hydromorphone HCl (Dilaudid Pf Inj) 0.5 mg ONCE ONCE IV PUSH Last administered on 03/18/17 13:57; Start 03/18/17 at 14:00; Stop 03/18/17 at 14:01 ; Status DC Pharmacy Profile Note 0 ml @ 0 mls/hr UNSCH OTHER ; Start 03/18/17 at 14:15; Stop 03/19/17 at 12:55; Status DC Piperacillin Sod/ Tazobactam Sod 50 ml @ 100 mls/hr Q6H IV Last administered on 03/20/17 08:24; Start 03/18/17 at 20:00; Stop 03/20/17 at 10:59; Status DC Pantoprazole Sodium (Protonix Inj) 40 mg Q24H IV PUSH Last administered on 03/21 14:14; Start 03/18/17 at 15:00; Stop 03/22/17 at 10:38; Status DC Sodium Chloride (NS Flush) 2 ml UNSCH PRN IV FLUSH FLUSH AFTER USING IV ACCESS Last administered on 03/28/17 07:37; Start 03/18/17 at 14:15 Sodium Chloride (NS Flush) 2 ml BID IV FLUSH Last administered on 04/10/17 08: 04; Start 03/18/17 at 21:00 Ondansetron HCl (Zofran Inj) 4 mg Q6H PRN IVP NAUSEA OR VOMITING Last administered on 04/08/17 10:05; Start 03/18/17 at 14:15 Hydromorphone HCl (Dilaudid Pf Inj) 0.3 mg Q3H PRN IV Pain 3-5; if unable to take PO; Start 03/18/17 at 14:15; Stop 03/20/17 at 11:23; Status DC Hydromorphone HCl (Dilaudid Pf Inj) 0.5 mg Q3H PRN IV Pain 6-10;if unable to take PO Last administered on 03/20/17 08:25; Start 03/18/17 at 14:15; Stop at 11:23; Status DC Hydromorphone HCl (Dilaudid Pf Inj) 0.5 mg Q3H PRN IV BREAKTHROUGH PAIN Last administered on 03/24/17 13:26; Start 03/18/17 at 14:15; Stop 03/24/17 at 17:40; Status DC Naloxone HCl (Narcan Inj) 0.4 mg UNSCH PRN IV SEE LABEL COMMENTS; Start at 14:15 Vancomycin HCl 750 mg/Sodium Chloride 257.5 ml @ 250 mls/hr Q24H IV ; Start at 15:00; Stop 03/19/17 at 15:00; Status DC Miscellaneous Information SPECIFIC LAB TO BE DRAWN:VANCO TROUGH DATE TO... ONCE ONCE .XX ; Start 03/21/17 at 14:45; Stop 03/21/17 at 14:45; Status DC Iohexol (Omnipaque 350 Inj) 90 ml STK-MED ONCE IVCONTRAST Last administered on 03/18/17 13:45; Start 03/18/17 at 13:45; Stop 03/18/17 at 14:31; Status DC Furosemide (Lasix Inj) 20 mg ONCE ONCE IV PUSH Last administered on 03/18/17 16:21; Start 03/18/17 at 16:15; Stop 03/18/17 at 16:17; Status DC Potassium Chloride 100 ml @ 50 mls/hr ONCE ONCE IV Last administered on 16:26; Start 03/18/17 at 16:15; Stop 03/18/17 at 18:14; Status DC Albuterol Sulfate (Albuterol Neb) 0.63 mg Q4HR NEB PRN NEB sob; Start 03/18/17 at 16:15; Stop 03/22/17 at 19:23; Status DC Potassium Chloride 10 meq/ Dextrose/Sodium Chloride 1,005 ml @ 75 mls/hr [id number] IV Last administered on 04/02/17 00:01; Start 03/19/17 at 13:30; Stop 04/02/17 at 10:16; Status DC Acetaminophen (Tylenol) 650 mg Q4H PRN PO TEMPERATURE > 100.5 F Last administered on 04/09/17 23:22; Start 03/19/17 at 16:45 Levofloxacin/ Dextrose 150 ml @ 100 mls/hr Q24H IV Last administered on 16:28; Start 03/19/17 at 17:00 Hydromorphone HCl (Dilaudid Pf Inj) 0.5 mg Q3H PRN IV Pain 3-5; if unable to take PO; Start 03/20/17 at 14:15; Status Future Hold Hydromorphone HCl (Dilaudid Pf Inj) 1 mg Q3H PRN IV Pain 6-10;if unable to take PO Last administered on 03/21/17 14:15; Start 03/20/17 at 14:15; Stop 03/30 at 14:36; Status DC Calcium Carbonate (Oscal) 500 mg ONCE ONCE PO Last administered on 03/21/17 11:48; Start 03/21/17 at 08:15; Stop 03/21/17 at 08:25; Status DC Fentanyl Citrate (fentaNYL INJ) 100 mcg STK-MED ONCE .ROUTE ; Start 03/21/17 at 08:15; Stop 03/21/17 at 08:16; Status DC Iohexol (Omnipaque 350 Inj) 50 ml ONCE ONCE .XX Last administered on 08:52; Start 03/21/17 at 08:51; Stop 03/21/17 at 08:52; Status DC Morphine Sulfate (*morphine INJ PERIprocedure ONLY) 8 mg STK-MED ONCE .ROUTE Last administered on 03/21/17 09:18; Start 03/21/17 at 09:18; Stop 03/21/17 at 09:19; Status DC Miscellaneous Information ALL NURSING DEPARTME... UNSCH PRN .XX SEE LABEL COMMENTS; Start 03/21/17 at 09:05; Stop 03/22/17 at 09:04; Status DC Oxycodone/ Acetaminophen (Percocet 5-325 Mg) 1 tab Q4H PRN PO Pain 3 to 6 Last administered on 03/23/17 04:39; Start 03/21/17 at 14:45; Stop 03/24/17 at 08:53; Status DC Oxycodone/ Acetaminophen (Percocet 7.5-325 Mg) 1 tab Q4H PRN PO Pain 3-5 Last administered on 03/24/17 08:23; Start 03/21/17 at 14:45; Stop 03/28/17 at 13:26; Status DC Potassium Chloride (KCl Powder) 40 meq ONCE ONCE PO Last administered on 20:35; Start 03/21/17 at 19:00; Stop 03/21/17 at 19:15; Status DC Pantoprazole Sodium (Protonix) 40 mg Q24H PO Last administered on 04/09/17 16: 28; Start 03/22/17 at 17:00 Albuterol/ Ipratropium (Duoneb Neb) 1 ampule Q4HR NEB PRN NEB Dyspnea Last administered on 03/31/17 05:33; Start 03/22/17 at 19:30; Stop 03/31/17 at 11:05; Status DC Senna/Docusate Sodium (Sharon-Colace) 1 tab BID PO Last administered on 08:02; Start 03/22/17 at 21:00 Magnesium Hydroxide (Milk Of Magnesia Liq) 30 ml Q12H PRN PO MILD - MODERATE CONSTIPATION Last administered on 04/09/17 08:04; Start 03/22/17 at 19:30 Sennosides (Senokot) 17.2 mg Q12H PRN PO MODERATE - SEVERE CONSTIPATION Last administered on 03/23/17 11:20; Start 03/22/17 at 19:30 Bisacodyl (Dulcolax Supp) 10 mg DAILY PRN RECTAL SEVERE CONSITIPATION Last administered on 03/31/17 13:03; Start 03/22/17 at 19:30 Lactulose (Lactulose Liq) 30 ml DAILY PRN PO SEVERE CONSITIPATION Last administered on 03/29/17 09:18; Start 03/22/17 at 19:30 Oxycodone/ Acetaminophen (Percocet 10-325 Mg) 1 tab Q4H PRN PO PAIN SCALE 6 TO 10 Last administered on 03/28/17 12:53; Start 03/24/17 at 11:00; Stop 03/28/17 at 13:26; Status DC Metoclopramide HCl (Reglan Inj) 10 mg Q8H PRN IV PUSH SEE LABEL COMMENTS Last administered on 03/30/17 12:58; Start 03/24/17 at 11:00 Haloperidol (Haldol) 1 mg Q6HR PO Last administered on 03/30/17 12:52; Start at 18:00; Stop 03/30/17 at 14:18; Status DC Methylnaltrexone [place] (Relistor Inj) 12 mg DAILY SQ Last administered on 03/25 08:09; Start 03/24/17 at 16:30; Stop 03/25/17 at 16:29; Status DC Hydromorphone HCl (Dilaudid Pf Inj) 1 mg Q3H PRN IV BREAKTHROUGH PAIN Last administered on 03/30/17 12:56; Start 03/24/17 at 20:15; Stop 03/30/17 at 14:21; Status DC Hydromorphone HCl (Dilaudid Pf Inj) 1 mg ONCE ONCE IV PUSH Last administered on 03/24/17 18:27; Start 03/24/17 at 17:45; Stop 03/24/17 at 17:46; Status DC Potassium Chloride 100 ml @ 50 mls/hr Q2H IV Last administered on 03/25/17 11: 35; Start 03/25/17 at 09:15; Stop 03/25/17 at 13:14; Status DC Potassium Chloride 0 ml @ As Directed STK-MED ONCE .ROUTE ; Start 03/25/17 at 16: 00; Stop 03/25/17 at 16:01; Status DC Diatrizoate Meglum/ Diatrizoate Sod (Md Munoz Liq) 18 ml ONCE ONCE PO Last administered on 03/27/17 18:03; Start 03/27/17 at 17:30; Stop 03/27/17 at 17: 31; Status DC Enalaprilat (Vasotec Inj) 1.25 mg Q6H PRN IV PUSH BP > 160/90 Last administered on 03/29/17 14:31; Start 03/27/17 at 19:30 Hydralazine HCl (Apresoline) 10 mg Q6H PRN PO BP > 160/90; Start 03/27/17 at 19: 30 Iohexol (Omnipaque 350 Inj) 70 ml STK-MED ONCE IVCONTRAST Last administered on 03/27/17 21:10; Start 03/27/17 at 21:10; Stop 03/27/17 at 21:11; Status DC Morphine Sulfate (Oramorph Sr) 30 mg Q12HR PO Last administered on 04/04/17 08 :11; Start 03/28/17 at 21:00; Stop 04/04/17 at 12:21; Status DC Haloperidol (Haldol) 2 mg Q6HR PO Last administered on 04/07/17 06:27; Start 03/30/17 at 18:00; Stop 04/07/17 at 16:14; Status DC Hydromorphone HCl (Dilaudid Pf Inj) 1.5 mg Q3H PRN IV PUSH PAIN SCALE 7 TO 10 Last administered on 04/06/17 05:15; Start 03/30/17 at 14:30; Stop 04/06/17 at 10:25; Status DC Dexamethasone Sodium Phosphate (Decadron Inj) 2 mg BID@0800,1400 IV PUSH Last administered on 04/10/17 08:06; Start 03/30/17 at 14:45 Albuterol/ Ipratropium (Duoneb Neb) 1 ampule Q4HR NEB NEB ; Start 03/31/17 at 12 :00; Stop 03/31/17 at 15:39; Status DC Ipratropium [place] (Atrovent Neb) 0.5 mg Q4HR NEB NEB Last administered on 12:09; Start 03/31/17 at 16:00; Stop 04/03/17 at 22:23; Status DC Budesonide (Pulmicort Respule Neb) 0.5 mg Q12HR NEB NEB Last administered on 20:12; Start 03/31/17 at 20:00; Stop 04/02/17 at 10:16; Status DC Metoprolol Tartrate (Lopressor) 12.5 mg ONCE ONCE PO Last administered on 17:40; Start 03/31/17 at 16:15; Stop 03/31/17 at 16:16; Status DC Metoprolol Tartrate (Lopressor) 12.5 mg Q12HR PO Last administered on 04/01/17 07:55; Start 03/31/17 at 21:00; Stop 04/01/17 at 10:59; Status DC Albumin Human (Albumin 25% Inj) 25 gm Q12H IV Last administered on 04/03/17 22 :13; Start 04/01/17 at 11:00; Stop 04/04/17 at 05:00; Status DC Metoprolol Tartrate (Lopressor) 12.5 mg Q12HR PRN PO TACHYCARDIA; Start at 21:00 Potassium Bicarb/ Potassium Chloride (K-Lyte Cl Eff) 25 meq ONCE ONCE PO Last administered on 04/02/17 10:50; Start 04/02/17 at 10:30; Stop 04/02/17 at 10:31; Status DC Polyethylene Glycol (Miralax) 17 gm ONCE ONCE PO Last administered on 13:23; Start 04/02/17 at 11:00; Stop 04/02/17 at 11:01; Status DC Albuterol/ Ipratropium (Duoneb Neb) 1 ampule Q6HR WHILE AWAKE NEB NEB Last administered on 04/06/17 09:20; Start 04/02/17 at 14:00; Stop 04/06/17 at 13:59 ; Status DC Albuterol/ Ipratropium (Duoneb Neb) 1 ampule Q2HR NEB PRN NEB dyspnea Last administered on 04/07/17 20:14; Start 04/02/17 at 10:30 Lorazepam (Ativan) 0.5 mg Q6H PRN PO anxiety Last administered on 04/09/17 21: 09; Start 04/02/17 at 21:00 Bisacodyl (Dulcolax Ec) 10 mg ONCE ONCE PO Last administered on 04/03/17 11: 22; Start 04/03/17 at 10:00; Stop 04/03/17 at 10:01; Status DC Vancomycin HCl 750 mg/Sodium Chloride 257.5 ml @ 250 mls/hr Q12H IV Last administered on 04/06/17 13:25; Start 04/04/17 at 11:00; Stop 04/06/17 at 14:01 ; Status DC Pharmacy Profile Note 0 ml @ 0 mls/hr UNSCH OTHER ; Start 04/04/17 at 09:15 Menthol (Cumby Azul) 1 lozenge UNSCH PRN BUCCAL cough/ discomfort; Start at 09:45 Menthol (Cumby Azul) 1 lozenge ONCE ONCE BUCCAL Last administered on 04/04/17 10:11; Start 04/04/17 at 09:45; Stop 04/04/17 at 09:46; Status DC Lactulose (Lactulose Liq) 30 ml ONCE ONCE PO Last administered on 04/04/17 10 :11; Start 04/04/17 at 09:45; Stop 04/04/17 at 09:46; Status DC Polyethylene Glycol (Miralax) 17 gm ONCE ONCE PO Last administered on 10:11; Start 04/04/17 at 09:45; Stop 04/04/17 at 09:46; Status DC Mineral Oil (Fleet Mineral Oil Enema) 118 ml ONCE ONCE RECTAL ; Start 04/04/17 at 09:45; Stop 04/04/17 at 16:54; Status DC Miscellaneous Information SPECIFIC LAB TO BE DRAWN:VANCO TROUGH DATE TO... ONCE ONCE .XX Last administered on 04/05/17 22:55; Start 04/05/17 at 22:45; Stop 04/05/17 at 22:46; Status DC Morphine Sulfate (Oramorph Sr) 60 mg Q12HR PO Last administered on 04/06/17 08 :31; Start 04/04/17 at 21:00; Stop 04/06/17 at 10:23; Status DC Morphine Sulfate (Oramorph Sr) 30 mg ONCE ONCE PO Last administered on 12:35; Start 04/04/17 at 12:30; Stop 04/04/17 at 12:31; Status DC Methylnaltrexone [place] (Relistor Inj) 8 mg EVERY OTHER DAY SQ Last administered on 04/10/17 08:11; Start 04/04/17 at 18:00 Morphine Sulfate (Oramorph Sr) 60 mg Q12HR PO Last administered on 04/10/17 08 :03; Start 04/06/17 at 21:00 Morphine Sulfate (Oramorph Sr) 30 mg Q12HR PO Last administered on 04/07/17 07 :53; Start 04/06/17 at 21:00; Stop 04/07/17 at 16:14; Status DC Hydromorphone HCl (Dilaudid Pf Inj) 1.5 mg Q4HR PRN IV PUSH PAIN SCALE 7 TO 10 Last administered on 04/10/17 04:30; Start 04/06/17 at 10:30 Morphine Sulfate (Oramorph Sr) 30 mg ONCE ONCE PO Last administered on 13:26; Start 04/06/17 at 10:45; Stop 04/06/17 at 11:25; Status DC Nystatin (Mycostatin Powder) 1 applic Q12HR TOPICAL Last administered on 08:07; Start 04/06/17 at 13:00 Vancomycin HCl 1000 mg/Sodium Chloride 250 ml @ 250 mls/hr Q12H IV Last administered on 04/10/17 00:34; Start 04/07/17 at 01:00 Miscellaneous Information SPECIFIC LAB TO BE HOLGER... ONCE ONCE .XX Last administered on 04/08/17 12:45; Start 04/08/17 at 12:45; Stop 04/08/17 at 12:46 ; Status DC Bisacodyl (Dulcolax Ec) 10 mg ONCE ONCE PO Last administered on 04/06/17 17: 50; Start 04/06/17 at 15:15; Stop 04/06/17 at 15:16; Status DC Bisacodyl (Dulcolax Supp) 10 mg ONCE ONCE RECTAL Last administered on 9/15/ 17at 17:02; Start 04/07/17 at 11:00; Stop 04/07/17 at 11:06; Status DC Haloperidol (Haldol) 2 mg Q6HR PRN PO Nausea Last administered on 04/09/17 23: 23; Start 04/07/17 at 16:15 Furosemide (Lasix) 20 mg DAILY PO Last administered on 04/10/17 08:02; Start 04/08/17 at 10:15 Albuterol Sulfate (Ventolin Hfa Inh) 2 puff Q4HR INH Last administered on 04:26; Start 04/08/17 at 12:00 Miscellaneous Information SPECIFIC LAB TO BE ... ONCE ONCE .XX ; Start 04/11 at 12:45; Stop 04/11/17 at 12:46 A/P Problem List: (1) Post-menopausal bleeding ICD Code: N95.0 - Postmenopausal bleeding Status: Acute (2) Pelvic mass in female ICD Code: R19.00 - Pelvic mass in female Status: Acute Assessment and Plan 57-year-old female admitted secondary to UTI and sepsis. S/p right stent placement for obstructive uropathy. Escherichia coli UTI/ Escherichia coli bacteremia Urine and blood cultures are positive for Escherichia coli. - Continue Levaquin IV per infectious disease. Urinary obstruction/ Moderate right Hydronephrosis/ Uterine carcinosarcoma/ Vaginal bleeding Appreciate urology consultation.Status post cystoscopy, long-term right ureteral stent insertion. - Radiation treatments to decrease tumor burden. - Palliative chemotherapy after radiation will be considered by gynecological oncology. Not a candidate for surgery due to extensive tumor burden. - on Morphine extended release 30 mg BID . We'll need to put a when necessary oral pain medication. Severe COPD/ HCAP Decreased air movement. Imaging with emphysematous changes. Chest x-ray with severe bullous emphysema. Pulmonology consult appreciated. CT chest with bibasilar consolidation, pleural effusions. Repeat imaging with improved pleural effusions, severe emphysema. - Patient states she does not like the nebulizer. Will schedule inhaler. -Most likely symptoms are due to severe COPD. continue Lasix. - continue IV Levaquin and vancomycin. May switch vancomycin to linezolid upon discharge per ID. - IS. - Pulmonology following. - Encourage ambulation. -Clinically improving but failed walk test requires oxygen. Constipation/Ileus Patient on various laxatives. KUB 04/07 with resolving ileus. The patient still has not had a bowel movement. - Continue bowel regimen. Relistor added. Dulcolax suppository ordered. Anasarca Secondary to her basal pathology. - s/p albumin IV. Buttocks/ groin fungal rash Nursing mentions excoriations to the buttocks area. - Wound care nurse consult appreciated. Nystatin powder added for fungal rash. DVT prophylaxis with SCDs. Discharge Planning Dealt with case management patient does not have any coverage for oxygen. If patient cannot afford oxygen on her own patient will remain hospitalized until she can be weaned off of oxygen. Yvonne Thomas MD Apr 10, 2017 13:21
--- NOTE | 2017-04-10 15:46 | HHI.PR ---
Addendum to Inpatient Note Addendum Reason: Additional Documentation Additional Information Chart review documentation Still on O2.CXR with emphysematous changes and bullae. Prior h/o extensive smoking. Still on Vanco IV and Levaquin but per d.w clinically improved. Now continuing to improve after addition of lasix. Will attempt to stop all antibiotics. Recommend observe her off antibiotics clinically. Patient at risk for aspiration when she gets constipated and has vomiting secondary to ileus. Will sign off please call back if any change in clinical condition or questions. Jenny Jackson MD Apr 10, 2017 15:46
[2017-04-10 16:00] VITALS: BP 129/66; PULSE 106; RESP 20; TEMP 98.3; O2SAT 98
[2017-04-10] MEDS: PANTOPRAZOLE SOD 40 MG DELAYED RELEASE TAB PO SCH (17:10)
--- NOTE | 2017-04-10 17:29 | HHI.PR ---
Subjective Remarks alert no sob SITTING IN BED Objective Vital Signs Date Time Temp Pulse Resp B/P (MAP) Pulse Ox O2 Delivery O2 Flow Rate FiO2 04/10/17 12:49 97.6 119 22 132/81 (98) 98 04/10/17 09:10 16 04/10/17 08:52 97 Nasal Cannula 3.00 04/10/17 08:00 96.7 116 20 167/88 (114) 96 04/10/17 05:00 16 04/10/17 04:00 96.3 104 16 134/81 (98) 98 04/10/17 00:20 18 04/10/17 00:00 97.0 93 16 143/87 (105) 99 04/09/17 22:20 97 Nasal Cannula 3.00 04/09/17 20:30 Nasal Cannula 1.50 04/09/17 20:00 96.5 95 16 144/93 (110) 98 I/O 04/09/17 04/09/17 04/09/17 04/10/17 04/10/17 04/10/17 07:00 15:00 23:00 07:00 15:00 23:00 Intake Total 480 ml 1020 ml 960 ml 960 ml Output Total 1850 ml 1402 ml 1000 ml 2000 ml Balance -1370 ml -382 ml -40 ml -1040 ml Intake Oral 480 ml 1020 ml 960 ml 960 ml Output Urine Total 1850 ml 1402 ml 1000 ml 2000 ml # Bowel Movements 0 # Sanitary Pads 2 Pads Result Diagram: 04/10/17 0626 04/10/17 0626 Procedures 03/21/2017 Cystoscopy, right retrograde pyelogram and medical terminologist right ureteral stent insertion Objective Remarks GENERAL: SKIN: Warm and dry. HEAD: Atraumatic. Normocephalic. EYES: Pupils equal and round. No scleral icterus. No injection or drainage. ENT: No nasal bleeding or discharge. Mucous membranes pink and moist. NECK: Trachea midline. No JVD. CARDIOVASCULAR: Regular rate and rhythm. RESPIRATORY: No accessory muscle use. Clear to auscultation. Breath sounds equal bilaterally. GASTROINTESTINAL: Abdomen soft, non-tender, nondistended. Hepatic and splenic margins not palpable. MUSCULOSKELETAL: Extremities without clubbing, cyanosis, or edema. No obvious deformities. NEUROLOGICAL: Awake and alert. No obvious cranial nerve deficits. Motor grossly within normal limits. Five out of 5 muscle strength in the arms and legs. Normal speech. PSYCHIATRIC: Appropriate mood and affect; insight and judgment normal. GENERAL: SKIN: Warm and dry. HEAD: Atraumatic. Normocephalic. EYES: Pupils equal and round. No scleral icterus. No injection or drainage. ENT: No nasal bleeding or discharge. Mucous membranes pink and moist. NECK: Trachea midline. No JVD. CARDIOVASCULAR: Regular rate and rhythm. RESPIRATORY: No accessory muscle use. Clear to auscultation. Breath sounds equal bilaterally. GASTROINTESTINAL: Abdomen soft, non-tender, nondistended. Hepatic and splenic margins not palpable. MUSCULOSKELETAL: Extremities without clubbing, cyanosis, or edema. No obvious deformities. NEUROLOGICAL: Awake and alert. No obvious cranial nerve deficits. Motor grossly within normal limits. Five out of 5 muscle strength in the arms and legs. Normal speech. PSYCHIATRIC: Appropriate mood and affect; insight and judgment normal. Assessment and Plan Assessment and Plan BIBASILAR ATELECTASIS EFFUSION COPD UTERINE SARCOMA PLAN O2 NEEDED BRONCHODILATOR THERAPY INCREASE ACTIVITY F/U CXRAY Jared Coleman MD Apr 10, 2017 17:29
--- NOTE | 2017-04-10 20:07 | RADRPT ---
EXAM DATE/TIME: 04/10/2017 19:44 [facility] COMPARISON: CHEST SINGLE AP, April 07, 2017, 4:45. CHEST PA & LAT, April 06, 2017, 18:05. INDICATIONS : Short of breath since this morning. MEDICAL HISTORY : Uterine cancer SURGICAL HISTORY : Tonsillectomy. ENCOUNTER: Subsequent ACUITY: 1 month PAIN SCORE: 0/10 LOCATION: Bilateral chest FINDINGS: Extensive emphysematous changes (left worse than right) are again noted within the upper lobes. Diff use interstitial changes are also again noted bilaterally. The heart is stable. No new infiltrate i s noted. No pleural effusion is noted. CONCLUSION: Stable emphysematous changes and diffuse interstitial infiltrates bilaterally. Dev Jimenez MD on April 10, 2017 at 19:58 Board Certified Radiologist. This report was verified electronically.
[2017-04-11] VITALS (7 sets, daily range): BP systolic 130–150; BP diastolic 67–95; PULSE 78–106; RESP 17–18; TEMP 96.6–97.6; O2SAT 91–99
[2017-04-11] MEDS: ALBUTEROL SULFATE 90 MCG/ACT HFA 18 GM INHALER INH SCH ×6 (04:00→20:06)
[2017-04-11] MEDS ORDERED: MORP1TAB26 PO (08:47)
[2017-04-11] MEDS ORDERED: NYST10007 TOPICAL (08:47)
[2017-04-11] MEDS ORDERED: FURO20TA PO (08:47)
[2017-04-11] MEDS ORDERED: SENN1TAB PO (08:47)
[2017-04-11] MEDS ORDERED: OXYC-392 PO (08:59)
[2017-04-11] MEDS: DOCUSATE SODIUM 50 MG/SENNA 8.6 MG TAB PO SCH ×2 (09:00→20:05)
--- NOTE | 2017-04-11 10:26 | HHI.PR ---
Subjective Remarks Follow-up for respiratory failure Denying shortness of breathing or cough. Patient stated that she is doing well. She remains afebrile. She is very anxious to go home today. Dealt with patient's nurse. She stated that case management along with her as well as have a conference call in regards to the oxygen. Objective Vitals Vital Signs Date Time Temp Pulse Resp B/P (MAP) Pulse Ox O2 Delivery O2 Flow Rate FiO2 04/11/17 09:49 99 Nasal Cannula 2.50 04/11/17 08:00 96.6 78 18 130/79 (96) 98 04/11/17 04:00 97.4 103 17 140/67 (91) 94 04/11/17 00:00 96.9 97 17 150/74 (99) 98 04/10/17 21:13 Nasal Cannula 3.00 04/10/17 20:15 Nasal Cannula 1.50 04/10/17 16:00 98.3 106 20 129/66 (87) 98 04/10/17 12:49 97.6 119 22 132/81 (98) 98 I/O 04/10/17 04/10/17 04/10/17 04/11/17 04/11/17 04/11/17 07:00 15:00 23:00 07:00 15:00 23:00 Intake Total 960 ml 600 ml Output Total 2000 ml 200 ml 1900 ml Balance -1040 ml -200 ml -1900 ml 600 ml Intake Oral 960 ml 600 ml Output Urine Total 2000 ml 200 ml 1900 ml # Bowel Movements 3 Result Diagram: 04/10/17 0626 04/10/17 0626 Objective Remarks GENERAL: Chronically ill appearing female no acute distress CARDIOVASCULAR: Regular rate and rhythm without murmurs, gallops, or rubs. + trace and 1 lower extremity edema RESPIRATORY: B mild crackles in the left basilar area otherwise very distant lung sounds. Cannot appreciate any rhonchi or wheezing. No accessory muscle use. GASTROINTESTINAL: Abdomen soft, non-tender, nondistended. Procedures 03/21/2017 Cystoscopy, right retrograde pyelogram and fci right ureteral stent insertion Medications and IVs Current Medications Sodium Chloride 1,000 ml @ 999 mls/hr BOLUS ONCE IV Last administered on 03/18t 12:12; Start 03/18/17 at 12:15; Stop 03/18/17 at 13:15; Status DC Sodium Chloride 1,000 ml @ 999 mls/hr BOLUS ONCE IV Last administered on 03/18 12:57; Start 03/18/17 at 12:15; Stop 03/18/17 at 13:15; Status DC Ondansetron HCl (Zofran Inj) 4 mg ONCE ONCE IV PUSH Last administered on 12:12; Start 03/18/17 at 12:15; Stop 03/18/17 at 12:16; Status DC Hydromorphone HCl (Dilaudid Pf Inj) 0.5 mg ONCE ONCE IV PUSH Last administered on 03/18/17 12:12; Start 03/18/17 at 12:15; Stop 03/18/17 at 12:16 ; Status DC Vancomycin HCl 600 mg/Sodium Chloride 256 ml @ 262.5 mls/ hr ONCE STAT IV Last administered on 03/18/17 14:28; Start 03/18/17 at 12:07; Stop 03/18/17 at 13:05; Status DC Piperacillin Sod/ Tazobactam Sod 100 ml @ 200 mls/hr ONCE STAT IV Last administered on 03/18/17 13:57; Start 03/18/17 at 12:07; Stop 03/18/17 at 12:36 ; Status DC Metronidazole 100 ml @ 100 mls/hr ONCE STAT IV Last administered on 12:34; Start 03/18/17 at 12:07; Stop 03/18/17 at 13:06; Status DC Sodium Chloride 1,000 ml @ 999 mls/hr BOLUS ONCE IV Last administered on 03/18 15:26; Start 03/18/17 at 12:45; Stop 03/18/17 at 13:45; Status DC Sodium Chloride 1,000 ml @ 250 mls/hr Q4H ONCE IV ; Start 03/18/17 at 12:45; Stop 03/18/17 at 16:44; Status DC Hydromorphone HCl (Dilaudid Pf Inj) 0.5 mg ONCE ONCE IV PUSH Last administered on 03/18/17 13:57; Start 03/18/17 at 14:00; Stop 03/18/17 at 14:01 ; Status DC Pharmacy Profile Note 0 ml @ 0 mls/hr UNSCH OTHER ; Start 03/18/17 at 14:15; Stop 03/19/17 at 12:55; Status DC Piperacillin Sod/ Tazobactam Sod 50 ml @ 100 mls/hr Q6H IV Last administered on 03/20/17 08:24; Start 03/18/17 at 20:00; Stop 03/20/17 at 10:59; Status DC Pantoprazole Sodium (Protonix Inj) 40 mg Q24H IV PUSH Last administered on 03/21 14:14; Start 03/18/17 at 15:00; Stop 03/22/17 at 10:38; Status DC Sodium Chloride (NS Flush) 2 ml UNSCH PRN IV FLUSH FLUSH AFTER USING IV ACCESS Last administered on 03/28/17 07:37; Start 03/18/17 at 14:15 Sodium Chloride (NS Flush) 2 ml BID IV FLUSH Last administered on 04/10/17 08: 04; Start 03/18/17 at 21:00 Ondansetron HCl (Zofran Inj) 4 mg Q6H PRN IVP NAUSEA OR VOMITING Last administered on 04/08/17 10:05; Start 03/18/17 at 14:15 Hydromorphone HCl (Dilaudid Pf Inj) 0.3 mg Q3H PRN IV Pain 3-5; if unable to take PO; Start 03/18/17 at 14:15; Stop 03/20/17 at 11:23; Status DC Hydromorphone HCl (Dilaudid Pf Inj) 0.5 mg Q3H PRN IV Pain 6-10;if unable to take PO Last administered on 03/20/17 08:25; Start 03/18/17 at 14:15; Stop at 11:23; Status DC Hydromorphone HCl (Dilaudid Pf Inj) 0.5 mg Q3H PRN IV BREAKTHROUGH PAIN Last administered on 03/24/17 13:26; Start 03/18/17 at 14:15; Stop 03/24/17 at 17:40; Status DC Naloxone HCl (Narcan Inj) 0.4 mg UNSCH PRN IV SEE LABEL COMMENTS; Start at 14:15 Vancomycin HCl 750 mg/Sodium Chloride 257.5 ml @ 250 mls/hr Q24H IV ; Start at 15:00; Stop 03/19/17 at 15:00; Status DC Miscellaneous Information SPECIFIC LAB TO BE DRAWN:VANCO TROUGH DATE TO... ONCE ONCE .XX ; Start 03/21/17 at 14:45; Stop 03/21/17 at 14:45; Status DC Iohexol (Omnipaque 350 Inj) 90 ml STK-MED ONCE IVCONTRAST Last administered on 03/18/17 13:45; Start 03/18/17 at 13:45; Stop 03/18/17 at 14:31; Status DC Furosemide (Lasix Inj) 20 mg ONCE ONCE IV PUSH Last administered on 03/18/17 16:21; Start 03/18/17 at 16:15; Stop 03/18/17 at 16:17; Status DC Potassium Chloride 100 ml @ 50 mls/hr ONCE ONCE IV Last administered on 16:26; Start 03/18/17 at 16:15; Stop 03/18/17 at 18:14; Status DC Albuterol Sulfate (Albuterol Neb) 0.63 mg Q4HR NEB PRN NEB sob; Start 03/18/17 at 16:15; Stop 03/22/17 at 19:23; Status DC Potassium Chloride 10 meq/ Dextrose/Sodium Chloride 1,005 ml @ 75 mls/hr [id number] IV Last administered on 04/02/17 00:01; Start 03/19/17 at 13:30; Stop 04/02/17 at 10:16; Status DC Acetaminophen (Tylenol) 650 mg Q4H PRN PO TEMPERATURE > 100.5 F Last administered on 04/09/17 23:22; Start 03/19/17 at 16:45 Levofloxacin/ Dextrose 150 ml @ 100 mls/hr Q24H IV Last administered on 16:28; Start 03/19/17 at 17:00; Stop 04/10/17 at 15:44; Status DC Hydromorphone HCl (Dilaudid Pf Inj) 0.5 mg Q3H PRN IV Pain 3-5; if unable to take PO; Start 03/20/17 at 14:15; Stop 04/10/17 at 13:23; Status DC Hydromorphone HCl (Dilaudid Pf Inj) 1 mg Q3H PRN IV Pain 6-10;if unable to take PO Last administered on 03/21/17 14:15; Start 03/20/17 at 14:15; Stop 03/30 at 14:36; Status DC Calcium Carbonate (Oscal) 500 mg ONCE ONCE PO Last administered on 03/21/17 11:48; Start 03/21/17 at 08:15; Stop 03/21/17 at 08:25; Status DC Fentanyl Citrate (fentaNYL INJ) 100 mcg STK-MED ONCE .ROUTE ; Start 03/21/17 at 08:15; Stop 03/21/17 at 08:16; Status DC Iohexol (Omnipaque 350 Inj) 50 ml ONCE ONCE .XX Last administered on 08:52; Start 03/21/17 at 08:51; Stop 03/21/17 at 08:52; Status DC Morphine Sulfate (*morphine INJ PERIprocedure ONLY) 8 mg STK-MED ONCE .ROUTE Last administered on 03/21/17 09:18; Start 03/21/17 at 09:18; Stop 03/21/17 at 09:19; Status DC Miscellaneous Information ALL NURSING DEPARTME... UNSCH PRN .XX SEE LABEL COMMENTS; Start 03/21/17 at 09:05; Stop 03/22/17 at 09:04; Status DC Oxycodone/ Acetaminophen (Percocet 5-325 Mg) 1 tab Q4H PRN PO Pain 3 to 6 Last administered on 03/23/17 04:39; Start 03/21/17 at 14:45; Stop 03/24/17 at 08:53; Status DC Oxycodone/ Acetaminophen (Percocet 7.5-325 Mg) 1 tab Q4H PRN PO Pain 3-5 Last administered on 03/24/17 08:23; Start 03/21/17 at 14:45; Stop 03/28/17 at 13:26; Status DC Potassium Chloride (KCl Powder) 40 meq ONCE ONCE PO Last administered on 20:35; Start 03/21/17 at 19:00; Stop 03/21/17 at 19:15; Status DC Pantoprazole Sodium (Protonix) 40 mg Q24H PO Last administered on 04/10/17 17: 10; Start 03/22/17 at 17:00 Albuterol/ Ipratropium (Duoneb Neb) 1 ampule Q4HR NEB PRN NEB Dyspnea Last administered on 03/31/17 05:33; Start 03/22/17 at 19:30; Stop 03/31/17 at 11:05; Status DC Senna/Docusate Sodium (Sharon-Colace) 1 tab BID PO Last administered on 20:14; Start 03/22/17 at 21:00 Magnesium Hydroxide (Milk Of Magnesia Liq) 30 ml Q12H PRN PO MILD - MODERATE CONSTIPATION Last administered on 04/09/17 08:04; Start 03/22/17 at 19:30 Sennosides (Senokot) 17.2 mg Q12H PRN PO MODERATE - SEVERE CONSTIPATION Last administered on 03/23/17 11:20; Start 03/22/17 at 19:30 Bisacodyl (Dulcolax Supp) 10 mg DAILY PRN RECTAL SEVERE CONSITIPATION Last administered on 03/31/17 13:03; Start 03/22/17 at 19:30 Lactulose (Lactulose Liq) 30 ml DAILY PRN PO SEVERE CONSITIPATION Last administered on 03/29/17 09:18; Start 03/22/17 at 19:30 Oxycodone/ Acetaminophen (Percocet 10-325 Mg) 1 tab Q4H PRN PO PAIN SCALE 6 TO 10 Last administered on 03/28/17 12:53; Start 03/24/17 at 11:00; Stop 03/28/17 at 13:26; Status DC Metoclopramide HCl (Reglan Inj) 10 mg Q8H PRN IV PUSH SEE LABEL COMMENTS Last administered on 03/30/17 12:58; Start 03/24/17 at 11:00 Haloperidol (Haldol) 1 mg Q6HR PO Last administered on 03/30/17 12:52; Start at 18:00; Stop 03/30/17 at 14:18; Status DC Methylnaltrexone [place] (Relistor Inj) 12 mg DAILY SQ Last administered on 03/25 08:09; Start 03/24/17 at 16:30; Stop 03/25/17 at 16:29; Status DC Hydromorphone HCl (Dilaudid Pf Inj) 1 mg Q3H PRN IV BREAKTHROUGH PAIN Last administered on 03/30/17 12:56; Start 03/24/17 at 20:15; Stop 03/30/17 at 14:21; Status DC Hydromorphone HCl (Dilaudid Pf Inj) 1 mg ONCE ONCE IV PUSH Last administered on 03/24/17 18:27; Start 03/24/17 at 17:45; Stop 03/24/17 at 17:46; Status DC Potassium Chloride 100 ml @ 50 mls/hr Q2H IV Last administered on 03/25/17 11: 35; Start 03/25/17 at 09:15; Stop 03/25/17 at 13:14; Status DC Potassium Chloride 0 ml @ As Directed STK-MED ONCE .ROUTE ; Start 03/25/17 at 16: 00; Stop 03/25/17 at 16:01; Status DC Diatrizoate Meglum/ Diatrizoate Sod ( Gastroview Liq) 18 ml ONCE ONCE PO Last administered on 03/27/17 18:03; Start 03/27/17 at 17:30; Stop 03/27/17 at 17: 31; Status DC Enalaprilat (Vasotec Inj) 1.25 mg Q6H PRN IV PUSH BP > 160/90 Last administered on 03/29/17 14:31; Start 03/27/17 at 19:30 Hydralazine HCl (Apresoline) 10 mg Q6H PRN PO BP > 160/90; Start 03/27/17 at 19: 30 Iohexol (Omnipaque 350 Inj) 70 ml STK-MED ONCE IVCONTRAST Last administered on 03/27/17 21:10; Start 03/27/17 at 21:10; Stop 03/27/17 at 21:11; Status DC Morphine Sulfate (Oramorph Sr) 30 mg Q12HR PO Last administered on 04/04/17 08 :11; Start 03/28/17 at 21:00; Stop 04/04/17 at 12:21; Status DC Haloperidol (Haldol) 2 mg Q6HR PO Last administered on 04/07/17 06:27; Start 03/30/17 at 18:00; Stop 04/07/17 at 16:14; Status DC Hydromorphone HCl (Dilaudid Pf Inj) 1.5 mg Q3H PRN IV PUSH PAIN SCALE 7 TO 10 Last administered on 04/06/17 05:15; Start 03/30/17 at 14:30; Stop 04/06/17 at 10:25; Status DC Dexamethasone Sodium Phosphate (Decadron Inj) 2 mg BID@0800,1400 IV PUSH Last administered on 04/10/17 14:45; Start 03/30/17 at 14:45 Albuterol/ Ipratropium (Duoneb Neb) 1 ampule Q4HR NEB NEB ; Start 03/31/17 at 12 :00; Stop 03/31/17 at 15:39; Status DC Ipratropium [place] (Atrovent Neb) 0.5 mg Q4HR NEB NEB Last administered on 12:09; Start 03/31/17 at 16:00; Stop 04/03/17 at 22:23; Status DC Budesonide (Pulmicort Respule Neb) 0.5 mg Q12HR NEB NEB Last administered on 20:12; Start 03/31/17 at 20:00; Stop 04/02/17 at 10:16; Status DC Metoprolol Tartrate (Lopressor) 12.5 mg ONCE ONCE PO Last administered on 17:40; Start 03/31/17 at 16:15; Stop 03/31/17 at 16:16; Status DC Metoprolol Tartrate (Lopressor) 12.5 mg Q12HR PO Last administered on 04/01/17 07:55; Start 03/31/17 at 21:00; Stop 04/01/17 at 10:59; Status DC Albumin Human (Albumin 25% Inj) 25 gm Q12H IV Last administered on 04/03/17 22 :13; Start 04/01/17 at 11:00; Stop 04/04/17 at 05:00; Status DC Metoprolol Tartrate (Lopressor) 12.5 mg Q12HR PRN PO TACHYCARDIA; Start at 21:00 Potassium Bicarb/ Potassium Chloride (K-Lyte Cl Eff) 25 meq ONCE ONCE PO Last administered on 04/02/17 10:50; Start 04/02/17 at 10:30; Stop 04/02/17 at 10:31; Status DC Polyethylene Glycol (Miralax) 17 gm ONCE ONCE PO Last administered on 13:23; Start 04/02/17 at 11:00; Stop 04/02/17 at 11:01; Status DC Albuterol/ Ipratropium (Duoneb Neb) 1 ampule Q6HR WHILE AWAKE NEB NEB Last administered on 04/06/17 09:20; Start 04/02/17 at 14:00; Stop 04/06/17 at 13:59 ; Status DC Albuterol/ Ipratropium (Duoneb Neb) 1 ampule Q2HR NEB PRN NEB dyspnea Last administered on 04/07/17 20:14; Start 04/02/17 at 10:30 Lorazepam (Ativan) 0.5 mg Q6H PRN PO anxiety Last administered on 04/09/17 21: 09; Start 04/02/17 at 21:00 Bisacodyl (Dulcolax Ec) 10 mg ONCE ONCE PO Last administered on 04/03/17 11: 22; Start 04/03/17 at 10:00; Stop 04/03/17 at 10:01; Status DC Vancomycin HCl 750 mg/Sodium Chloride 257.5 ml @ 250 mls/hr Q12H IV Last administered on 04/06/17 13:25; Start 04/04/17 at 11:00; Stop 04/06/17 at 14:01 ; Status DC Pharmacy Profile Note 0 ml @ 0 mls/hr UNSCH OTHER ; Start 04/04/17 at 09:15; Stop 04/10/17 at 15:44; Status DC Menthol (Machias Azul) 1 lozenge UNSCH PRN BUCCAL cough/ discomfort; Start at 09:45 Menthol (Machias Azul) 1 lozenge ONCE ONCE BUCCAL Last administered on 04/04/17 10:11; Start 04/04/17 at 09:45; Stop 04/04/17 at 09:46; Status DC Lactulose (Lactulose Liq) 30 ml ONCE ONCE PO Last administered on 04/04/17 10 :11; Start 04/04/17 at 09:45; Stop 04/04/17 at 09:46; Status DC Polyethylene Glycol (Miralax) 17 gm ONCE ONCE PO Last administered on 10:11; Start 04/04/17 at 09:45; Stop 04/04/17 at 09:46; Status DC Mineral Oil (Fleet Mineral Oil Enema) 118 ml ONCE ONCE RECTAL ; Start 04/04/17 at 09:45; Stop 04/04/17 at 16:54; Status DC Miscellaneous Information SPECIFIC LAB TO BE DRAWN:VANCO TROUGH DATE TO... ONCE ONCE .XX Last administered on 04/05/17 22:55; Start 04/05/17 at 22:45; Stop 04/05/17 at 22:46; Status DC Morphine Sulfate (Oramorph Sr) 60 mg Q12HR PO Last administered on 04/06/17 08 :31; Start 04/04/17 at 21:00; Stop 04/06/17 at 10:23; Status DC Morphine Sulfate (Oramorph Sr) 30 mg ONCE ONCE PO Last administered on 12:35; Start 04/04/17 at 12:30; Stop 04/04/17 at 12:31; Status DC Methylnaltrexone [place] (Relistor Inj) 8 mg EVERY OTHER DAY SQ Last administered on 04/10/17 08:11; Start 04/04/17 at 18:00 Morphine Sulfate (Oramorph Sr) 60 mg Q12HR PO Last administered on 04/10/17 20 :14; Start 04/06/17 at 21:00 Morphine Sulfate (Oramorph Sr) 30 mg Q12HR PO Last administered on 04/07/17 07 :53; Start 04/06/17 at 21:00; Stop 04/07/17 at 16:14; Status DC Hydromorphone HCl (Dilaudid Pf Inj) 1.5 mg Q4HR PRN IV PUSH PAIN SCALE 7 TO 10 Last administered on 04/10/17 04:30; Start 04/06/17 at 10:30; Stop 04/10/17 at 13:23; Status DC Morphine Sulfate (Oramorph Sr) 30 mg ONCE ONCE PO Last administered on 13:26; Start 04/06/17 at 10:45; Stop 04/06/17 at 11:25; Status DC Nystatin (Mycostatin Powder) 1 applic Q12HR TOPICAL Last administered on 20:13; Start 04/06/17 at 13:00 Vancomycin HCl 1000 mg/Sodium Chloride 250 ml @ 250 mls/hr Q12H IV Last administered on 04/10/17 14:45; Start 04/07/17 at 01:00; Stop 04/10/17 at 15:44 ; Status DC Miscellaneous Information SPECIFIC LAB TO BE HOLGER... ONCE ONCE .XX Last administered on 04/08/17 12:45; Start 04/08/17 at 12:45; Stop 04/08/17 at 12:46 ; Status DC Bisacodyl (Dulcolax Ec) 10 mg ONCE ONCE PO Last administered on 04/06/17 17: 50; Start 04/06/17 at 15:15; Stop 04/06/17 at 15:16; Status DC Bisacodyl (Dulcolax Supp) 10 mg ONCE ONCE RECTAL Last administered on 17:02; Start 04/07/17 at 11:00; Stop 04/07/17 at 11:06; Status DC Haloperidol (Haldol) 2 mg Q6HR PRN PO Nausea Last administered on 04/09/17 23: 23; Start 04/07/17 at 16:15 Furosemide (Lasix) 20 mg DAILY PO Last administered on 04/10/17 08:02; Start 04/08/17 at 10:15 Albuterol Sulfate (Ventolin Hfa Inh) 2 puff Q4HR INH Last administered on 20:13; Start 04/08/17 at 12:00 Miscellaneous Information SPECIFIC LAB TO BE HOLGER... ONCE ONCE .XX ; Start 04/11 at 12:45; Stop 04/11/17 at 12:45; Status DC Oxycodone HCl (Roxicodone) 5 mg Q4H PRN PO pain 1-7; Start 04/10/17 at 13:30 Oxycodone HCl (Roxicodone) 10 mg Q4H PRN PO pain 8-10 Last administered on 04/11 03:34; Start 04/10/17 at 13:30 A/P Problem List: (1) Post-menopausal bleeding ICD Code: N95.0 - Postmenopausal bleeding Status: Acute (2) Pelvic mass in female ICD Code: R19.00 - Pelvic mass in female Status: Acute Assessment and Plan 57-year-old female admitted secondary to UTI and sepsis. S/p right stent placement for obstructive uropathy. Escherichia coli UTI/ Escherichia coli bacteremia Urine and blood cultures are positive for Escherichia coli. - Finished Levaquin treatment on 04/10/2017. Urinary obstruction/ Moderate right Hydronephrosis/ Uterine carcinosarcoma/ Vaginal bleeding Appreciate urology consultation.Status post cystoscopy, long-term right ureteral stent insertion. - Radiation treatments to decrease tumor burden. - Palliative chemotherapy after radiation will be considered by gynecological oncology. Not a candidate for surgery due to extensive tumor burden. - Palliative care was managing pain management. Patient is not in any pain with current regimen. I would not escalate her pain medication at all on Morphine extended release 60 mg BID . Will need to put a when necessary oral pain medication. Need to be careful with pain regimen since constipation is most likely the etiology for her emesis that is causing aspiration pneumonia. Severe COPD/ HCAP Decreased air movement. Imaging with emphysematous changes. Chest x-ray with severe bullous emphysema. Pulmonology consult appreciated. CT chest with bibasilar consolidation, pleural effusions. Repeat imaging with improved pleural effusions, severe emphysema. - Patient states she does not like the nebulizer. Refusing inhaler. -Most likely symptoms are due to severe COPD. continue Lasix. -Status post treatment completion of IV Levaquin and vancomycin. Patient is doing well off of antibiotics. -Most likely patient probably needs chronic oxygen secondary to severe COPD. -At the moment no pairs source for her home oxygen. Constipation/Ileus Patient on various laxatives. KUB 04/07 with resolving ileus. The patient still has not had a bowel movement. - Continue with bowel regimen. -will need to try to taper off of pain medication. Intractable emesis -Secondary to severe constipation and ileus most likely secondary to pain medication. -Patient was put on Decadron by palliative care. Dealt with palliative care over the phone recommend to taper off of Decadron 2 mg for 1 week then 1 mg for a week then discontinue. Anasarca Secondary to her basal pathology. - s/p albumin IV. Buttocks/ groin fungal rash Nursing mentions excoriations to the buttocks area. - Wound care nurse consult appreciated. Nystatin powder added for fungal rash. DVT prophylaxis with SCDs. Discharge Planning Patient is medically stable for discharge but requires home oxygen. Once able to get home oxygen she can be discharged home. Dealt with case management and her nurse. Yvonne Thomas MD Apr 11, 2017 10:25
[2017-04-11] MEDS: MORPHINE SULFATE 60 MG CONTROLLED RELEASE TAB PO SCH ×2 (10:42→20:06)
[2017-04-11] MEDS: FUROSEMIDE 20 MG TAB PO SCH (10:42)
[2017-04-11] MEDS: SODIUM CHLORIDE 0.9% FLUSH 10 ML FLUSH IV FLUSH SCH ×2 (10:44→20:06)
[2017-04-11] MEDS: NYSTATIN 100,000 U/GM PWD 15 GM BTL TOPICAL SCH ×2 (10:44→20:06)
[2017-04-11] MEDS: DEXAMETHASONE SOD PHOS 4 MG/ML VIAL IV PUSH SCH ×2 (10:51→16:32)
[2017-04-11] MEDS ORDERED: PHARMACY ORDERED LAB ONE (12:45)
[2017-04-11] MEDS: PANTOPRAZOLE SOD 40 MG DELAYED RELEASE TAB PO SCH (16:32)
--- NOTE | 2017-04-11 18:45 | HHI.PR ---
Subjective Remarks alert no sob SITTING IN BED Objective Vital Signs Date Time Temp Pulse Resp B/P (MAP) Pulse Ox O2 Delivery O2 Flow Rate FiO2 04/11/17 16:00 97.6 85 18 134/95 (108) 93 04/11/17 12:00 97.3 94 18 133/79 (97) 92 04/11/17 12:00 16 04/11/17 09:49 99 Nasal Cannula 2.50 04/11/17 08:00 96.6 78 18 130/79 (96) 98 04/11/17 04:00 97.4 103 17 140/67 (91) 94 04/11/17 00:00 96.9 97 17 150/74 (99) 98 04/10/17 21:13 Nasal Cannula 3.00 04/10/17 20:15 Nasal Cannula 1.50 I/O 04/10/17 04/10/17 04/10/17 04/11/17 04/11/17 04/11/17 07:00 15:00 23:00 07:00 15:00 23:00 Intake Total 960 ml 960 ml 360 ml Output Total 2000 ml 200 ml 1900 ml 1300 ml Balance -1040 ml -200 ml -1900 ml -340 ml 360 ml Intake Oral 960 ml 960 ml 360 ml Output Urine Total 2000 ml 200 ml 1900 ml 1300 ml # Bowel Movements 3 2 Result Diagram: 04/10/17 0604/10/17 06 Procedures 03/21/2017 Cystoscopy, right retrograde pyelogram and terminal carman right ureteral stent insertion Objective Remarks GENERAL: SKIN: Warm and dry. HEAD: Atraumatic. Normocephalic. EYES: Pupils equal and round. No scleral icterus. No injection or drainage. ENT: No nasal bleeding or discharge. Mucous membranes pink and moist. NECK: Trachea midline. No JVD. CARDIOVASCULAR: Regular rate and rhythm. RESPIRATORY: No accessory muscle use. Clear to auscultation. Breath sounds equal bilaterally. GASTROINTESTINAL: Abdomen soft, non-tender, nondistended. Hepatic and splenic margins not palpable. MUSCULOSKELETAL: Extremities without clubbing, cyanosis, or edema. No obvious deformities. NEUROLOGICAL: Awake and alert. No obvious cranial nerve deficits. Motor grossly within normal limits. Five out of 5 muscle strength in the arms and legs. Normal speech. PSYCHIATRIC: Appropriate mood and affect; insight and judgment normal. GENERAL: SKIN: Warm and dry. HEAD: Atraumatic. Normocephalic. EYES: Pupils equal and round. No scleral icterus. No injection or drainage. ENT: No nasal bleeding or discharge. Mucous membranes pink and moist. NECK: Trachea midline. No JVD. CARDIOVASCULAR: Regular rate and rhythm. RESPIRATORY: No accessory muscle use. Clear to auscultation. Breath sounds equal bilaterally. GASTROINTESTINAL: Abdomen soft, non-tender, nondistended. Hepatic and splenic margins not palpable. MUSCULOSKELETAL: Extremities without clubbing, cyanosis, or edema. No obvious deformities. NEUROLOGICAL: Awake and alert. No obvious cranial nerve deficits. Motor grossly within normal limits. Five out of 5 muscle strength in the arms and legs. Normal speech. PSYCHIATRIC: Appropriate mood and affect; insight and judgment normal. Assessment and Plan Assessment and Plan BIBASILAR ATELECTASIS EFFUSION COPD UTERINE SARCOMA PLAN O2 NEEDED BRONCHODILATOR THERAPY INCREASE ACTIVITY Jared Coleman MD Apr 11, 2017 18:45
[2017-04-12] VITALS: BP 141/82; PULSE 102; RESP 18; TEMP 97.9; O2SAT 90
[2017-04-12 04:00] VITALS: BP 128/78; PULSE 98; RESP 17; TEMP 97.6; O2SAT 91
[2017-04-12] MEDS: ALBUTEROL SULFATE 90 MCG/ACT HFA 18 GM INHALER INH SCH ×5 (04:00→15:38)
[2017-04-12 08:00] VITALS: BP 152/91; PULSE 90; RESP 20; TEMP 96.9; O2SAT 92
--- NOTE | 2017-04-12 08:20 | PD.ONC.PN ---
Subjective Subjective Remarks Pt is sitting up in chair feels ready to go home denies SOA currently not using O2 states abd pain has greatly improved since she started radiation pak has been D/Cd and she has been OOB to urinate X 2 Objective Data Date Time Temp Pulse Resp B/P (MAP) Pulse Ox O2 Delivery O2 Flow Rate FiO2 04/12/17 04:00 97.6 98 17 128/78 (95) 91 04/12/17 00:00 97.9 102 18 141/82 (101) 90 04/11/17 20:55 Nasal Cannula 2.50 04/11/17 20:10 Room Air 04/11/17 20:00 97.1 106 18 145/86 (105) 91 04/11/17 16:00 97.6 85 18 134/95 (108) 93 04/11/17 12:00 97.3 94 18 133/79 (97) 92 04/11/17 12:00 16 04/11/17 09:49 99 Nasal Cannula 2.50 04/12/17 04/12/17 04/12/17 07:00 15:00 23:00 Intake Total 480 ml Output Total 1350 ml Balance -870 ml Result Diagram: 04/10/17 0604/10/17 0626 Administered Medications Medications (Trade) Dose Ordered Sig/Mata Route PRN Reason Start Time Stop Time Status Last Admin Dose Admin Sodium Chloride (NS Flush) 2 ml UNSCH PRN IV FLUSH FLUSH AFTER USING IV ACCESS 03/18/17 14:15 03/28/17 07:37 Sodium Chloride (NS Flush) 2 ml BID IV FLUSH 03/18/17 21:00 04/11/17 20:06 Ondansetron HCl (Zofran Inj) 4 mg Q6H PRN IVP NAUSEA OR VOMITING 03/18/17 14:15 04/08/17 10:05 Acetaminophen (Tylenol) 650 mg Q4H PRN PO TEMPERATURE > 100.5 F 03/19/17 16:45 04/09/17 23:22 Pantoprazole Sodium (Protonix) 40 mg Q24H PO 03/22/17 17:00 04/11/17 16:32 Senna/Docusate Sodium ([place]-Colace) 1 tab BID PO 03/22/17 21:00 04/11/17 20:05 Magnesium Hydroxide (Milk Of Magnesia Liq) 30 ml Q12H PRN PO MILD - MODERATE CONSTIPATION 03/22/17 19:30 04/09/17 08:04 Sennosides (Senokot) 17.2 mg Q12H PRN PO MODERATE - SEVERE CONSTIPATION 03/22/17 19:30 03/23/17 11:20 Bisacodyl (Dulcolax Supp) 10 mg DAILY PRN RECTAL SEVERE CONSITIPATION 03/22/17 19:30 03/31/17 13:03 Lactulose (Lactulose Liq) 30 ml DAILY PRN PO SEVERE CONSITIPATION 03/22/17 19:30 03/29/17 09:18 Metoclopramide HCl (Reglan Inj) 10 mg Q8H PRN IV PUSH SEE LABEL COMMENTS 03/24/17 11:00 03/30/17 12:58 Enalaprilat (Vasotec Inj) 1.25 mg Q6H PRN IV PUSH BP > 160/90 03/27/17 19:30 03/29/17 14:31 Dexamethasone Sodium Phosphate (Decadron Inj) 2 mg BID@0800,1400 IV PUSH 03/30/17 14:45 04/11/17 16:32 Albuterol/ Ipratropium (Duoneb Neb) 1 ampule Q2HR NEB PRN NEB dyspnea 04/02/17 10:30 04/07/17 20:14 Lorazepam (Ativan) 0.5 mg Q6H PRN PO anxiety 04/02/17 21:00 04/09/17 21:09 Methylnaltrexone [place] (Relistor Inj) 8 mg EVERY OTHER DAY SQ 04/04/17 18:00 04/10/17 08:11 Morphine Sulfate (Oramorph Sr) 60 mg Q12HR PO 04/06/17 21:00 04/11/17 20:06 Nystatin (Mycostatin Powder) 1 applic Q12HR TOPICAL 04/06/17 13:00 04/11/17 20:06 Haloperidol (Haldol) 2 mg Q6HR PRN PO Nausea 04/07/17 16:15 04/09/17 23:23 Furosemide (Lasix) 20 mg DAILY PO 04/08/17 10:15 04/11/17 10:42 Albuterol Sulfate (Ventolin Hfa Inh) 2 puff Q4HR INH 04/08/17 12:00 04/11/17 20:06 Oxycodone HCl (Roxicodone) 10 mg Q4H PRN PO pain 8-10 04/10/17 13:30 04/12/17 06:18 Objective Remarks GENERAL: frail SKIN: Warm and dry. HEAD: Normocephalic. EYES: No scleral icterus. No injection or drainage. CARDIOVASCULAR: Regular rate and rhythm RESPIRATORY: decreased BS to RLL, No accessory muscle use. GASTROINTESTINAL: Abdomen distended and firm EXTREMITIES: No cyanosis, or edema. NEUROLOGICAL: No obvious focal deficit. Awake, alert, and oriented x3. PSYCHIATRIC: Appropriate mood and affect; insight and judgment normal. 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
[2017-04-12] MEDS ORDERED: POLY17PO3 PO (08:33)
[2017-04-12] MEDS ORDERED: DEXA2TAB PO (08:33)
--- NOTE | 2017-04-12 08:57 | HHI.DCPOC ---
Discharge Care Plan Diagnosis: (1) Carcinosarcoma of uterus (2) Nausea (3) Hypoxia (4) Pneumonia (5) Constipation (6) Ileus (7) UTI (urinary tract infection) Goals to Promote Your Health * To prevent worsening of your condition and complications * To maintain your health at the optimal level Directions to Meet Your Goals Take your medications as prescribed Follow your dietary instruction Follow activity as directed Keep your appointments as scheduled Take your immunizations and boosters as scheduled If your symptoms worsen call your PCP, if no PCP go to Urgent Care Center or Emergency Room Smoking is Dangerous to Your Health. Avoid second hand smoke Call the 24-hour hour crisis hotline for domestic abuse at Yvonne Thomas MD Apr 12, 2017 08:57
[2017-04-12 09:27] VITALS: O2SAT 93
--- NOTE | 2017-04-12 09:58 | HHI.PR ---
Subjective Remarks Follow-up for hypoxia and uterine mass Patient very anxious to go home. She has been off of oxygen. Walk test was done and suggested patient does need home oxygen. Dealt with charge nurse Yaquelin and patient's nurse Dozier Objective Vitals Vital Signs Date Time Temp Pulse Resp B/P (MAP) Pulse Ox O2 Delivery O2 Flow Rate FiO2 04/12/17 09:27 93 21 04/12/17 09:27 4.00 04/12/17 08:00 96.9 90 20 152/91 (111) 92 04/12/17 04:00 97.6 98 17 128/78 (95) 91 04/12/17 00:00 97.9 102 18 141/82 (101) 90 04/11/17 20:55 Nasal Cannula 2.50 04/11/17 20:10 Room Air 04/11/17 20:00 97.1 106 18 145/86 (105) 91 04/11/17 16:00 97.6 85 18 134/95 (108) 93 04/11/17 12:00 97.3 94 18 133/79 (97) 92 04/11/17 12:00 16 I/O 04/11/17 04/11/17 04/11/17 04/12/17 04/12/17 04/12/17 07:00 15:00 23:00 07:00 15:00 23:00 Intake Total 960 ml 360 ml 480 ml Output Total 1900 ml 1300 ml 950 ml 1350 ml Balance -1900 ml -340 ml -590 ml -870 ml Intake Oral 960 ml 360 ml 480 ml Output Urine Total 1900 ml 1300 ml 950 ml 1350 ml # Bowel Movements 3 2 2 Result Diagram: 04/10/1762504/10/17625 Objective Remarks GENERAL: Chronically ill appearing female no acute distress CARDIOVASCULAR: Regular rate and rhythm without murmurs, gallops, or rubs. + trace and 1 lower extremity edema RESPIRATORY: B mild crackles in the left basilar area otherwise very distant lung sounds. Cannot appreciate any rhonchi or wheezing. No accessory muscle use. GASTROINTESTINAL: Abdomen soft, non-tender, nondistended. Procedures 03/21/2017 Cystoscopy, right retrograde pyelogram and usp right ureteral stent insertion Medications and IVs Current Medications Sodium Chloride 1,000 ml @ 999 mls/hr BOLUS ONCE IV Last administered on 03/18 12:12; Start 03/18/17 at 12:15; Stop 03/18/17 at 13:15; Status DC Sodium Chloride 1,000 ml @ 999 mls/hr BOLUS ONCE IV Last administered on 03/18 12:57; Start 03/18/17 at 12:15; Stop 03/18/17 at 13:15; Status DC Ondansetron HCl (Zofran Inj) 4 mg ONCE ONCE IV PUSH Last administered on 12:12; Start 03/18/17 at 12:15; Stop 03/18/17 at 12:16; Status DC Hydromorphone HCl (Dilaudid Pf Inj) 0.5 mg ONCE ONCE IV PUSH Last administered on 03/18/17 12:12; Start 03/18/17 at 12:15; Stop 03/18/17 at 12:16 ; Status DC Vancomycin HCl 600 mg/Sodium Chloride 256 ml @ 262.5 mls/ hr ONCE STAT IV Last administered on 03/18/17 14:28; Start 03/18/17 at 12:07; Stop 03/18/17 at 13:05; Status DC Piperacillin Sod/ Tazobactam Sod 100 ml @ 200 mls/hr ONCE STAT IV Last administered on 03/18/17 13:57; Start 03/18/17 at 12:07; Stop 03/18/17 at 12:36 ; Status DC Metronidazole 100 ml @ 100 mls/hr ONCE STAT IV Last administered on 12:34; Start 03/18/17 at 12:07; Stop 03/18/17 at 13:06; Status DC Sodium Chloride 1,000 ml @ 999 mls/hr BOLUS ONCE IV Last administered on 03/18 15:26; Start 03/18/17 at 12:45; Stop 03/18/17 at 13:45; Status DC Sodium Chloride 1,000 ml @ 250 mls/hr Q4H ONCE IV ; Start 03/18/17 at 12:45; Stop 03/18/17 at 16:44; Status DC Hydromorphone HCl (Dilaudid Pf Inj) 0.5 mg ONCE ONCE IV PUSH Last administered on 03/18/17 13:57; Start 03/18/17 at 14:00; Stop 03/18/17 at 14:01 ; Status DC Pharmacy Profile Note 0 ml @ 0 mls/hr UNSCH OTHER ; Start 03/18/17 at 14:15; Stop 03/19/17 at 12:55; Status DC Piperacillin Sod/ Tazobactam Sod 50 ml @ 100 mls/hr Q6H IV Last administered on 03/20/17 08:24; Start 03/18/17 at 20:00; Stop 03/20/17 at 10:59; Status DC Pantoprazole Sodium (Protonix Inj) 40 mg Q24H IV PUSH Last administered on 03/21 14:14; Start 03/18/17 at 15:00; Stop 03/22/17 at 10:38; Status DC Sodium Chloride (NS Flush) 2 ml UNSCH PRN IV FLUSH FLUSH AFTER USING IV ACCESS Last administered on 03/28/17 07:37; Start 03/18/17 at 14:15 Sodium Chloride (NS Flush) 2 ml BID IV FLUSH Last administered on 04/11/17 20: 06; Start 03/18/17 at 21:00 Ondansetron HCl (Zofran Inj) 4 mg Q6H PRN IVP NAUSEA OR VOMITING Last administered on 04/08/17 10:05; Start 03/18/17 at 14:15 Hydromorphone HCl (Dilaudid Pf Inj) 0.3 mg Q3H PRN IV Pain 3-5; if unable to take PO; Start 03/18/17 at 14:15; Stop 03/20/17 at 11:23; Status DC Hydromorphone HCl (Dilaudid Pf Inj) 0.5 mg Q3H PRN IV Pain 6-10;if unable to take PO Last administered on 03/20/17 08:25; Start 03/18/17 at 14:15; Stop at 11:23; Status DC Hydromorphone HCl (Dilaudid Pf Inj) 0.5 mg Q3H PRN IV BREAKTHROUGH PAIN Last administered on 03/24/17 13:26; Start 03/18/17 at 14:15; Stop 03/24/17 at 17:40; Status DC Naloxone HCl (Narcan Inj) 0.4 mg UNSCH PRN IV SEE LABEL COMMENTS; Start at 14:15 Vancomycin HCl 750 mg/Sodium Chloride 257.5 ml @ 250 mls/hr Q24H IV ; Start at 15:00; Stop 03/19/17 at 15:00; Status DC Miscellaneous Information SPECIFIC LAB TO BE DRAWN:VANCO TROUGH DATE TO... ONCE ONCE .XX ; Start 03/21/17 at 14:45; Stop 03/21/17 at 14:45; Status DC Iohexol (Omnipaque 350 Inj) 90 ml STK-MED ONCE IVCONTRAST Last administered on 03/18/17 13:45; Start 03/18/17 at 13:45; Stop 03/18/17 at 14:31; Status DC Furosemide (Lasix Inj) 20 mg ONCE ONCE IV PUSH Last administered on 03/18/17 16:21; Start 03/18/17 at 16:15; Stop 03/18/17 at 16:17; Status DC Potassium Chloride 100 ml @ 50 mls/hr ONCE ONCE IV Last administered on 16:26; Start 03/18/17 at 16:15; Stop 03/18/17 at 18:14; Status DC Albuterol Sulfate (Albuterol Neb) 0.63 mg Q4HR NEB PRN NEB sob; Start 03/18/17 at 16:15; Stop 03/22/17 at 19:23; Status DC Potassium Chloride 10 meq/ Dextrose/Sodium Chloride 1,005 ml @ 75 mls/hr [id number] IV Last administered on 04/02/17 00:01; Start 03/19/17 at 13:30; Stop 04/02/17 at 10:16; Status DC Acetaminophen (Tylenol) 650 mg Q4H PRN PO TEMPERATURE > 100.5 F Last administered on 04/09/17 23:22; Start 03/19/17 at 16:45 Levofloxacin/ Dextrose 150 ml @ 100 mls/hr Q24H IV Last administered on 16:28; Start 03/19/17 at 17:00; Stop 04/10/17 at 15:44; Status DC Hydromorphone HCl (Dilaudid Pf Inj) 0.5 mg Q3H PRN IV Pain 3-5; if unable to take PO; Start 03/20/17 at 14:15; Stop 04/10/17 at 13:23; Status DC Hydromorphone HCl (Dilaudid Pf Inj) 1 mg Q3H PRN IV Pain 6-10;if unable to take PO Last administered on 03/21/17 14:15; Start 03/20/17 at 14:15; Stop 03/30 at 14:36; Status DC Calcium Carbonate (Oscal) 500 mg ONCE ONCE PO Last administered on 03/21/17 11:48; Start 03/21/17 at 08:15; Stop 03/21/17 at 08:25; Status DC Fentanyl Citrate (fentaNYL INJ) 100 mcg STK-MED ONCE .ROUTE ; Start 03/21/17 at 08:15; Stop 03/21/17 at 08:16; Status DC Iohexol (Omnipaque 350 Inj) 50 ml ONCE ONCE .XX Last administered on 08:52; Start 03/21/17 at 08:51; Stop 03/21/17 at 08:52; Status DC Morphine Sulfate (*morphine INJ PERIprocedure ONLY) 8 mg STK-MED ONCE .ROUTE Last administered on 03/21/17 09:18; Start 03/21/17 at 09:18; Stop 03/21/17 at 09:19; Status DC Miscellaneous Information ALL NURSING DEPARTME... UNSCH PRN .XX SEE LABEL COMMENTS; Start 03/21/17 at 09:05; Stop 03/22/17 at 09:04; Status DC Oxycodone/ Acetaminophen (Percocet 5-325 Mg) 1 tab Q4H PRN PO Pain 3 to 6 Last administered on 03/23/17 04:39; Start 03/21/17 at 14:45; Stop 03/24/17 at 08:53; Status DC Oxycodone/ Acetaminophen (Percocet 7.5-325 Mg) 1 tab Q4H PRN PO Pain 3-5 Last administered on 03/24/17 08:23; Start 03/21/17 at 14:45; Stop 03/28/17 at 13:26; Status DC Potassium Chloride (KCl Powder) 40 meq ONCE ONCE PO Last administered on 20:35; Start 03/21/17 at 19:00; Stop 03/21/17 at 19:15; Status DC Pantoprazole Sodium (Protonix) 40 mg Q24H PO Last administered on 04/11/17 16: 32; Start 03/22/17 at 17:00 Albuterol/ Ipratropium (Duoneb Neb) 1 ampule Q4HR NEB PRN NEB Dyspnea Last administered on 03/31/17 05:33; Start 03/22/17 at 19:30; Stop 03/31/17 at 11:05; Status DC Senna/Docusate Sodium ([place]-Colace) 1 tab BID PO Last administered on 20:05; Start 03/22/17 at 21:00 Magnesium Hydroxide (Milk Of Magnesia Liq) 30 ml Q12H PRN PO MILD - MODERATE CONSTIPATION Last administered on 04/09/17 08:04; Start 03/22/17 at 19:30 Sennosides (Senokot) 17.2 mg Q12H PRN PO MODERATE - SEVERE CONSTIPATION Last administered on 03/23/17 11:20; Start 03/22/17 at 19:30 Bisacodyl (Dulcolax Supp) 10 mg DAILY PRN RECTAL SEVERE CONSITIPATION Last administered on 03/31/17 13:03; Start 03/22/17 at 19:30 Lactulose (Lactulose Liq) 30 ml DAILY PRN PO SEVERE CONSITIPATION Last administered on 03/29/17 09:18; Start 03/22/17 at 19:30 Oxycodone/ Acetaminophen (Percocet 10-325 Mg) 1 tab Q4H PRN PO PAIN SCALE 6 TO 10 Last administered on 03/28/17 12:53; Start 03/24/17 at 11:00; Stop 03/28/17 at 13:26; Status DC Metoclopramide HCl (Reglan Inj) 10 mg Q8H PRN IV PUSH SEE LABEL COMMENTS Last administered on 03/30/17 12:58; Start 03/24/17 at 11:00 Haloperidol (Haldol) 1 mg Q6HR PO Last administered on 03/30/17 12:52; Start at 18:00; Stop 03/30/17 at 14:18; Status DC Methylnaltrexone [place] (Relistor Inj) 12 mg DAILY SQ Last administered on 03/25 08:09; Start 03/24/17 at 16:30; Stop 03/25/17 at 16:29; Status DC Hydromorphone HCl (Dilaudid Pf Inj) 1 mg Q3H PRN IV BREAKTHROUGH PAIN Last administered on 03/30/17 12:56; Start 03/24/17 at 20:15; Stop 03/30/17 at 14:21; Status DC Hydromorphone HCl (Dilaudid Pf Inj) 1 mg ONCE ONCE IV PUSH Last administered on 03/24/17 18:27; Start 03/24/17 at 17:45; Stop 03/24/17 at 17:46; Status DC Potassium Chloride 100 ml @ 50 mls/hr Q2H IV Last administered on 03/25/17 11: 35; Start 03/25/17 at 09:15; Stop 03/25/17 at 13:14; Status DC Potassium Chloride 0 ml @ As Directed STK-MED ONCE .ROUTE ; Start 03/25/17 at 16: 00; Stop 03/25/17 at 16:01; Status DC Diatrizoate Meglum/ Diatrizoate Sod ( [place]astro[place] Liq) 18 ml ONCE ONCE PO Last administered on 03/27/17 18:03; Start 03/27/17 at 17:30; Stop 03/27/17 at 17: 31; Status DC Enalaprilat (Vasotec Inj) 1.25 mg Q6H PRN IV PUSH BP > 160/90 Last administered on 03/29/17 14:31; Start 03/27/17 at 19:30 Hydralazine HCl (Apresoline) 10 mg Q6H PRN PO BP > 160/90; Start 03/27/17 at 19: 30 Iohexol (Omnipaque 350 Inj) 70 ml STK-MED ONCE IVCONTRAST Last administered on 03/27/17 21:10; Start 03/27/17 at 21:10; Stop 03/27/17 at 21:11; Status DC Morphine Sulfate (Oramorph Sr) 30 mg Q12HR PO Last administered on 04/04/17 08 :11; Start 03/28/17 at 21:00; Stop 04/04/17 at 12:21; Status DC Haloperidol (Haldol) 2 mg Q6HR PO Last administered on 04/07/17 06:27; Start 03/30/17 at 18:00; Stop 04/07/17 at 16:14; Status DC Hydromorphone HCl (Dilaudid Pf Inj) 1.5 mg Q3H PRN IV PUSH PAIN SCALE 7 TO 10 Last administered on 04/06/17 05:15; Start 03/30/17 at 14:30; Stop 04/06/17 at 10:25; Status DC Dexamethasone Sodium Phosphate (Decadron Inj) 2 mg BID@0800,1400 IV PUSH Last administered on 04/11/17 16:32; Start 03/30/17 at 14:45 Albuterol/ Ipratropium (Duoneb Neb) 1 ampule Q4HR NEB NEB ; Start 03/31/17 at 12 :00; Stop 03/31/17 at 15:39; Status DC Ipratropium [place] (Atrovent Neb) 0.5 mg Q4HR NEB NEB Last administered on 12:09; Start 03/31/17 at 16:00; Stop 04/03/17 at 22:23; Status DC Budesonide (Pulmicort Respule Neb) 0.5 mg Q12HR NEB NEB Last administered on 20:12; Start 03/31/17 at 20:00; Stop 04/02/17 at 10:16; Status DC Metoprolol Tartrate (Lopressor) 12.5 mg ONCE ONCE PO Last administered on 17:40; Start 03/31/17 at 16:15; Stop 03/31/17 at 16:16; Status DC Metoprolol Tartrate (Lopressor) 12.5 mg Q12HR PO Last administered on 04/01/17 07:55; Start 03/31/17 at 21:00; Stop 04/01/17 at 10:59; Status DC Albumin Human (Albumin 25% Inj) 25 gm Q12H IV Last administered on 04/03/17 22 :13; Start 04/01/17 at 11:00; Stop 04/04/17 at 05:00; Status DC Metoprolol Tartrate (Lopressor) 12.5 mg Q12HR PRN PO TACHYCARDIA; Start at 21:00 Potassium Bicarb/ Potassium Chloride (K-[place] Cl Eff) 25 meq ONCE ONCE PO Last administered on 04/02/17 10:50; Start 04/02/17 at 10:30; Stop 04/02/17 at 10:31; Status DC Polyethylene Glycol (Miralax) 17 gm ONCE ONCE PO Last administered on 13:23; Start 04/02/17 at 11:00; Stop 04/02/17 at 11:01; Status DC Albuterol/ Ipratropium (Duoneb Neb) 1 ampule Q6HR WHILE AWAKE NEB NEB Last administered on 04/06/17 09:20; Start 04/02/17 at 14:00; Stop 04/06/17 at 13:59 ; Status DC Albuterol/ Ipratropium (Duoneb Neb) 1 ampule Q2HR NEB PRN NEB dyspnea Last administered on 04/07/17 20:14; Start 04/02/17 at 10:30 Lorazepam (Ativan) 0.5 mg Q6H PRN PO anxiety Last administered on 04/09/17 21: 09; Start 04/02/17 at 21:00 Bisacodyl (Dulcolax Ec) 10 mg ONCE ONCE PO Last administered on 04/03/17 11: 22; Start 04/03/17 at 10:00; Stop 04/03/17 at 10:01; Status DC Vancomycin HCl 750 mg/Sodium Chloride 257.5 ml @ 250 mls/hr Q12H IV Last administered on 04/06/17 13:25; Start 04/04/17 at 11:00; Stop 04/06/17 at 14:01 ; Status DC Pharmacy Profile Note 0 ml @ 0 mls/hr UNSCH OTHER ; Start 04/04/17 at 09:15; Stop 04/10/17 at 15:44; Status DC Menthol ([place] Azul) 1 lozenge UNSCH PRN BUCCAL cough/ discomfort; Start at 09:45 Menthol ([place] Azul) 1 lozenge ONCE ONCE BUCCAL Last administered on 04/04/17 10:11; Start 04/04/17 at 09:45; Stop 04/04/17 at 09:46; Status DC Lactulose (Lactulose Liq) 30 ml ONCE ONCE PO Last administered on 04/04/17 10 :11; Start 04/04/17 at 09:45; Stop 04/04/17 at 09:46; Status DC Polyethylene Glycol (Miralax) 17 gm ONCE ONCE PO Last administered on 10:11; Start 04/04/17 at 09:45; Stop 04/04/17 at 09:46; Status DC Mineral Oil (Fleet Mineral Oil Enema) 118 ml ONCE ONCE RECTAL ; Start 04/04/17 at 09:45; Stop 04/04/17 at 16:54; Status DC Miscellaneous Information SPECIFIC LAB TO BE DRAWN:VANCO TROUGH DATE TO... ONCE ONCE .XX Last administered on 04/05/17 22:55; Start 04/05/17 at 22:45; Stop 04/05/17 at 22:46; Status DC Morphine Sulfate (Oramorph Sr) 60 mg Q12HR PO Last administered on 04/06/17 08 :31; Start 04/04/17 at 21:00; Stop 04/06/17 at 10:23; Status DC Morphine Sulfate (Oramorph Sr) 30 mg ONCE ONCE PO Last administered on 12:35; Start 04/04/17 at 12:30; Stop 04/04/17 at 12:31; Status DC Methylnaltrexone [place] (Relistor Inj) 8 mg EVERY OTHER DAY SQ Last administered on 04/10/17 08:11; Start 04/04/17 at 18:00 Morphine Sulfate (Oramorph Sr) 60 mg Q12HR PO Last administered on 04/11/17 20 :06; Start 04/06/17 at 21:00 Morphine Sulfate (Oramorph Sr) 30 mg Q12HR PO Last administered on 04/07/17 07 :53; Start 04/06/17 at 21:00; Stop 04/07/17 at 16:14; Status DC Hydromorphone HCl (Dilaudid Pf Inj) 1.5 mg Q4HR PRN IV PUSH PAIN SCALE 7 TO 10 Last administered on 04/10/17 04:30; Start 04/06/17 at 10:30; Stop 04/10/17 at 13:23; Status DC Morphine Sulfate (Oramorph Sr) 30 mg ONCE ONCE PO Last administered on 13:26; Start 04/06/17 at 10:45; Stop 04/06/17 at 11:25; Status DC Nystatin (Mycostatin Powder) 1 applic Q12HR TOPICAL Last administered on 20:06; Start 04/06/17 at 13:00 Vancomycin HCl 1000 mg/Sodium Chloride 250 ml @ 250 mls/hr Q12H IV Last administered on 04/10/17 14:45; Start 04/07/17 at 01:00; Stop 04/10/17 at 15:44 ; Status DC Miscellaneous Information SPECIFIC LAB TO BE HOLGER... ONCE ONCE .XX Last administered on 04/08/17 12:45; Start 04/08/17 at 12:45; Stop 04/08/17 at 12:46 ; Status DC Bisacodyl (Dulcolax Ec) 10 mg ONCE ONCE PO Last administered on 04/06/17 17: 50; Start 04/06/17 at 15:15; Stop 04/06/17 at 15:16; Status DC Bisacodyl (Dulcolax Supp) 10 mg ONCE ONCE RECTAL Last administered on 17:02; Start 04/07/17 at 11:00; Stop 04/07/17 at 11:06; Status DC Haloperidol (Haldol) 2 mg Q6HR PRN PO Nausea Last administered on 04/09/17 23: 23; Start 04/07/17 at 16:15 Furosemide (Lasix) 20 mg DAILY PO Last administered on 04/11/17 10:42; Start 04/08/17 at 10:15 Albuterol Sulfate (Ventolin Hfa Inh) 2 puff Q4HR INH Last administered on 20:06; Start 04/08/17 at 12:00 Miscellaneous Information SPECIFIC LAB TO BE HOLGER... ONCE ONCE .XX ; Start 04/11 at 12:45; Stop 04/11/17 at 12:45; Status DC Oxycodone HCl (Roxicodone) 5 mg Q4H PRN PO pain 1-7; Start 04/10/17 at 13:30 Oxycodone HCl (Roxicodone) 10 mg Q4H PRN PO pain 8-10 Last administered on 9/20 /17at 06:18; Start 04/10/17 at 13:30 A/P Problem List: (1) Post-menopausal bleeding ICD Code: N95.0 - Postmenopausal bleeding Status: Acute (2) Pelvic mass in female ICD Code: R19.00 - Pelvic mass in female Status: Acute Assessment and Plan 57-year-old female admitted secondary to UTI and sepsis. S/p right stent placement for obstructive uropathy. Escherichia coli UTI/ Escherichia coli bacteremia Urine and blood cultures are positive for Escherichia coli. - Finished Levaquin treatment on 04/10/2017. Urinary obstruction/ Moderate right Hydronephrosis/ Uterine carcinosarcoma/ Vaginal bleeding Appreciate urology consultation.Status post cystoscopy, long-term right ureteral stent insertion. - Radiation treatments to decrease tumor burden. - Palliative chemotherapy after radiation will be considered by gynecological oncology. Not a candidate for surgery due to extensive tumor burden. - Palliative care was managing pain management. Patient is not in any pain with current regimen. I would not escalate her pain medication at all on Morphine extended release 60 mg BID . Will need to put a when necessary oral pain medication. Need to be careful with pain regimen since constipation is most likely the etiology for her emesis that is causing aspiration pneumonia. Severe COPD/ HCAP Decreased air movement. Imaging with emphysematous changes. Chest x-ray with severe bullous emphysema. Pulmonology consult appreciated. CT chest with bibasilar consolidation, pleural effusions. Repeat imaging with improved pleural effusions, severe emphysema. - Patient states she does not like the nebulizer. Refusing inhaler. -Most likely symptoms are due to severe COPD. continue Lasix. -Status post treatment completion of IV Levaquin and vancomycin. Patient is doing well off of antibiotics. -Most likely patient probably needs chronic oxygen secondary to severe COPD. Constipation/Ileus Patient on various laxatives. KUB 04/07 with resolving ileus. The patient still has not had a bowel movement. - Continue with bowel regimen. -will need to try to taper off of pain medication. Intractable emesis -Secondary to severe constipation and ileus most likely secondary to pain medication. -Patient was put on Decadron by palliative care. Dealt with palliative care over the phone recommend to taper off of Decadron 2 mg for 1 week then 1 mg for a week then discontinue. Anasarca Secondary to her basal pathology. - s/p albumin IV. Buttocks/ groin fungal rash Nursing mentions excoriations to the buttocks area. - Wound care nurse consult appreciated. Nystatin powder added for fungal rash. DVT prophylaxis with SCDs. Discharge Planning Patient is medically stable for discharge but requires home oxygen. Once able to get home oxygen she can be discharged home. Yvonne Thomas MD Apr 12, 2017 09:58
[2017-04-12] MEDS: MORPHINE SULFATE 60 MG CONTROLLED RELEASE TAB PO SCH (10:59)
[2017-04-12] MEDS: DOCUSATE SODIUM 50 MG/SENNA 8.6 MG TAB PO SCH (10:59)
[2017-04-12] MEDS: FUROSEMIDE 20 MG TAB PO SCH (11:00)
[2017-04-12] MEDS: METHYLNALTREXONE BROMIDE 12 MG/0.6 ML VIAL SQ SCH (11:04)
[2017-04-12] MEDS: NYSTATIN 100,000 U/GM PWD 15 GM BTL TOPICAL SCH (11:06)
[2017-04-12] MEDS: SODIUM CHLORIDE 0.9% FLUSH 10 ML FLUSH IV FLUSH SCH (11:07)
[2017-04-12 12:00] VITALS: BP 119/75; PULSE 95; RESP 16; TEMP 98.8; O2SAT 93
[2017-04-12 16:00] VITALS: BP 131/72; PULSE 95; RESP 14; TEMP 96; O2SAT 93
--- NOTE | 2017-04-12 16:45 | HHI.PR ---
Subjective Remarks alert no sob AMBULATING Objective Vital Signs Date Time Temp Pulse Resp B/P (MAP) Pulse Ox O2 Delivery O2 Flow Rate FiO2 04/12/17 12:00 98.8 95 16 119/75 (90) 93 04/12/17 09:27 93 21 04/12/17 09:27 4.00 04/12/17 08:00 96.9 90 20 152/91 (111) 92 04/12/17 04:00 97.6 98 17 128/78 (95) 91 04/12/17 00:00 97.9 102 18 141/82 (101) 90 04/11/17 20:55 Nasal Cannula 2.50 04/11/17 20:10 Room Air 04/11/17 20:00 97.1 106 18 145/86 (105) 91 I/O 04/11/17 04/11/17 04/11/17 04/12/17 04/12/17 04/12/17 07:00 15:00 23:00 07:00 15:00 23:00 Intake Total 960 ml 360 ml 480 ml Output Total 1900 ml 1300 ml 950 ml 1350 ml Balance -1900 ml -340 ml -590 ml -870 ml Intake Oral 960 ml 360 ml 480 ml Output Urine Total 1900 ml 1300 ml 950 ml 1350 ml # Bowel Movements 3 2 2 Result Diagram: 04/10/17 0604/10/17 06 Procedures 03/21/2017 Cystoscopy, right retrograde pyelogram and longterm right ureteral stent insertion Objective Remarks GENERAL: SKIN: Warm and dry. HEAD: Atraumatic. Normocephalic. EYES: Pupils equal and round. No scleral icterus. No injection or drainage. ENT: No nasal bleeding or discharge. Mucous membranes pink and moist. NECK: Trachea midline. No JVD. CARDIOVASCULAR: Regular rate and rhythm. RESPIRATORY: No accessory muscle use. Clear to auscultation. Breath sounds equal bilaterally. GASTROINTESTINAL: Abdomen soft, non-tender, nondistended. Hepatic and splenic margins not palpable. MUSCULOSKELETAL: Extremities without clubbing, cyanosis, or edema. No obvious deformities. NEUROLOGICAL: Awake and alert. No obvious cranial nerve deficits. Motor grossly within normal limits. Five out of 5 muscle strength in the arms and legs. Normal speech. PSYCHIATRIC: Appropriate mood and affect; insight and judgment normal. GENERAL: SKIN: Warm and dry. HEAD: Atraumatic. Normocephalic. EYES: Pupils equal and round. No scleral icterus. No injection or drainage. ENT: No nasal bleeding or discharge. Mucous membranes pink and moist. NECK: Trachea midline. No JVD. CARDIOVASCULAR: Regular rate and rhythm. RESPIRATORY: No accessory muscle use. Clear to auscultation. Breath sounds equal bilaterally. GASTROINTESTINAL: Abdomen soft, non-tender, nondistended. Hepatic and splenic margins not palpable. MUSCULOSKELETAL: Extremities without clubbing, cyanosis, or edema. No obvious deformities. NEUROLOGICAL: Awake and alert. No obvious cranial nerve deficits. Motor grossly within normal limits. Five out of 5 muscle strength in the arms and legs. Normal speech. PSYCHIATRIC: Appropriate mood and affect; insight and judgment normal. Assessment and Plan Assessment and Plan BIBASILAR ATELECTASIS EFFUSION COPD UTERINE SARCOMA PLAN O2 NEEDED BRONCHODILATOR THERAPY INCREASE ACTIVITY Jared Coleman MD Apr 12, 2017 16:45
--- NOTE | 2017-04-12 17:17 | HHI.DS ---
Discharge Summary Admission Date Mar 18, 2017 at 14:03 Discharge Date: Apr 12, 2017 Admitting Diagnosis UTI, SEPSIS, R HYDRONEPHROSIS (1) Carcinosarcoma of uterus ICD Code: C55 - Malignant neoplasm of uterus, part unspecified Diagnosis: Principal Status: Acute (2) Pneumonia ICD Code: J18.9 - Pneumonia, unspecified organism Diagnosis: Principal (3) UTI (urinary tract infection) ICD Code: N39.0 - Urinary tract infection, site not specified Diagnosis: Principal Status: Resolved (4) Hypoxia ICD Code: R09.02 - Hypoxemia Diagnosis: Principal (5) Constipation ICD Code: K59.00 - Constipation, unspecified Diagnosis: Principal (6) Malnutrition ICD Code: E46 - Unspecified protein-calorie malnutrition Diagnosis: Secondary (7) Hydronephrosis, right ICD Code: N13.30 - Unspecified hydronephrosis Diagnosis: Principal Procedures 03/21/2017 Cystoscopy, right retrograde pyelogram and 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 4 days ago under anesthesia, she had cystoscopy, proctoscopy and endocervical/endometrial mass biopsy because of chronic vaginal bleeding. During cystoscopy, the bladder never distended and there was concern that there may be a defect in the bladder possibly communicating with the tumor or the peritoneal cavity. Proctosigmoidoscopy showed extrinsic compression which precluded evaluation beyond that point. Patient returns to the emergency department because of persistent nausea, vomiting and constant sharp severe generalized abdominal pain associated with burning upon urination, weakness, dizziness and feeling warm. Repeat CT of the abdomen and pelvis shows pelvic mass not significant change but right ureter is not obstructed with mild hydronephrosis and trace fluid in the cul-de-sac. Dr. Clifton recommended transfer to the main hospital and admission to the medical service and consult to . When I examined the patient, she complained of difficulty breathing. She was tachypneic with coarse breath sounds with crackles all the way up. She received a total of 4 L in the emergency department. All other systems reviewed negative CBC/BMP: 04/10/1726 04/10/17 0626 Significant Findings Laboratory Tests Test 04/10/17 06:26 Red Blood Count 3.76 MIL/MM3 (4.00-5.30) Hemoglobin 10.2 GM/DL (11.6-15.3) Hematocrit 31.3 % (35.0-46.0) Creatinine 0.49 MG/DL (0.50-1.00) Sodium Level 134 MEQ/L (136-145) Chloride Level 97 MEQ/L (98-107) Imaging Last Impressions Chest X-Ray 04/10/17 0000 Signed Impressions: Service Date/Time: Monday, April 10, 2017 19:44 - CONCLUSION: Stable emphysematous changes and diffuse interstitial infiltrates bilaterally. Dev Jimenez MD Abdomen X-Ray 04/07/17 0600 Signed Impressions: Service Date/Time: Friday, April 07, 2017 04:46 - CONCLUSION: Plain film findings characteristic of a resolving hypodynamic ileus. Jovan Gaviria MD Chest CT 04/03/17 0000 Signed Impressions: Service Date/Time: Monday, April 03, 2017 21:00 - CONCLUSION: 1. Right greater the left bibasilar consolidation and pleural effusions, worse. 2. Severe emphysema. Mateo Costa MD Abdomen/Pelvis CT 03/27/17 0000 Signed Impressions: Service Date/Time: Monday, March 27, 2017 20:57 - CONCLUSION: 1. Interval placement of right pigtail stent catheter with residual mild right hydronephrosis. 2. Large pelvic mass again noted without significant change. 3. Abnormal bowel gas pattern most consistent with an ileus. 4. New small bilateral pleural effusions and anasarca. Altaf Sanches MD PE at Discharge GENERAL: Chronically ill appearing female no acute distress CARDIOVASCULAR: Regular rate and rhythm without murmurs, gallops, or rubs. RESPIRATORY: B mild crackles in the left basilar area otherwise very distant lung sounds. Cannot appreciate any rhonchi or wheezing. No accessory muscle use. GASTROINTESTINAL: Abdomen soft, non-tender, nondistended. Pt update on day of discharge Please see progress note on the day of discharge for further information. Hospital Course 57-year-old female admitted secondary to UTI and sepsis. S/p right stent placement for obstructive uropathy. Escherichia coli UTI/ Escherichia coli bacteremia -Patient was treated empirically with IV antibiotics. Cultures obtained urine and blood cultures are positive for Escherichia coli. -she completed Levaquin treatment on 04/10/2017. Urinary obstruction/ Moderate right Hydronephrosis/ Uterine carcinosarcoma/ Vaginal bleeding Urologist was consulted and patient had a cystoscopy, long-term right ureteral stent insertion. - Radiation treatments to decrease tumor burden. - Palliative chemotherapy after radiation will be considered by gynecological oncology. Not a candidate for surgery due to extensive tumor burden. - Palliative care was managing pain management. She was put on morphine extended release and Decadron which was tapered. Severe COPD/ HCAP Decreased air movement. Imaging with emphysematous changes. Chest x-ray with severe bullous emphysema. Pulmonology consult appreciated. CT chest with bibasilar consolidation, pleural effusions. Repeat imaging with improved pleural effusions, severe emphysema. - Patient states she does not like the nebulizer. Refusing inhaler. -Most likely symptoms are due to severe COPD. symptoms did improve with Lasix which most likely fluids was exacerbating her COPD.. -She completed her treatment of IV Levaquin and vancomycin during hospital course and she did very well off of IV antibiotics. -Patient required oxygen throughout hospital course and on discharge. On the day of discharge she was most likely at her baseline. Constipation/Ileus Patient on various laxatives. KUB 04/07 with resolving ileus. Worsen due to pain medication. -Patient was put on aggressive bowel regimen. -She was told she would need to be tapered off her pain medication ordered for constipation. -Encourage fluid intake and fiber. Intractable emesis -Secondary to severe constipation and ileus most likely secondary to pain medication. -Resolved after treatment with bowel regimen and Decadron. Anasarca Secondary to her basal pathology. - Patient was given albumin IV. Buttocks/ groin fungal rash Nursing mentions excoriations to the buttocks area. - Wound care nurse consult appreciated. Nystatin powder added for fungal rash. Pt Condition on Discharge: Good Discharge Disposition: Discharge Home Discharge Time: > 30 minutes Discharge Instructions DIET: Follow Instructions for: Heart Healthy Diet Activities you can perform: Regular-No Restrictions Follow up Referrals: Oncology - 2 Weeks with Kaylah Clifton MD PCP Follow-up - 1 Week Pulmonology - 2 Months with Jared Coleman MD New Medications: Dexamethasone (Dexamethasone) 2 Mg Tab 2 MG PO BID for nausea, #21 TAB 0 Refills take 2 mg twice a day for 7 days then decrease to 1 mg (1/2 tab) twice a day for 7 days Oxygen (O2) (Oxygen (O2)) Device LITER SHEYLA.CANULA CONTINUOUS for Prevent Hypoxemia, #2 Oxygen Concentrator Portable Gaseous 2 L/min via Nasal Canula Continuous For 99 months Polyethylene Glycol 3350 (Miralax) 17 Gram Powd.pack 17 G PO DAILY PRN for CONSTIPATION, #30 PACKET 0 Refills Furosemide (Furosemide) 20 Mg Tab 20 MG PO DAILY for edema, #30 TAB 0 Refills Morphine ER (Morphine ER) 60 Mg Tab 60 MG PO Q12HR for Pain Management, #30 TAB 0 Refills Nystatin Topical (Nystop Topical) 100,000 Unit/Gm Powd 1 APPLIC TOPICAL Q12HR for thrush, #100 ML 0 Refills Oxycodone (Oxycodone) 5 Mg Tab 5 MG PO Q4H PRN for moderate to severe pain, #30 TAB 0 Refills Sennosides-Docusate Sodium (Senna Plus 8.6-50 mg) 8.6 Mg-50 Mg Tab 1 TAB PO BID for constipation, #60 TAB 0 Refills Yvonne Thomas MD Apr 12, 2017 17:17
[2017-04-12] MEDS: PANTOPRAZOLE SOD 40 MG DELAYED RELEASE TAB PO SCH (17:25)
[2017-04-12] MEDS ORDERED: DEXAMETHASONE 4 MG TAB PO SCH (21:00)
[2017-05-03] MEDS ORDERED: VENTAER INH (09:10)
[2017-05-03] MEDS ORDERED: FIBE625T10 PO (09:10)
== END 2017-04-12 18:36 | disposition home or self-care (01) | DRG 871 ==
LOC: PHED 11:26 → PHEDA 14:03 → HOCA 17:17
PROVIDERS: ADMIT Hospitalist; ATTEND Hospitalist
PROC: BT1D1ZZ Fluoroscopy of Right Kidney, Ureter and Bladder using Low Osmolar Contrast (ICD-10-PCS; 2017-03-21)
PROC: 0T768DZ Dilation of Right Ureter with Intraluminal Device, Via Natural or Artificial Opening Endoscopic (ICD-10-PCS; principal; 2017-03-21 08:14)
DX: A41.51 Sepsis due to Escherichia coli [E. coli] (principal); J69.0 Pneumonitis due to inhalation of food and vomit; J96.91 Respiratory failure, unspecified with hypoxia; N17.9 Acute kidney failure, unspecified; J18.9 Pneumonia, unspecified organism; C77.9 Secondary and unspecified malignant neoplasm of lymph node, unspecified; C78.6 Secondary malignant neoplasm of retroperitoneum and peritoneum; K56.7 Ileus, unspecified; J44.0 Chronic obstructive pulmonary disease with (acute) lower respiratory infection; N13.6 Pyonephrosis; I47.1 Supraventricular tachycardia; E46 Unspecified protein-calorie malnutrition; E87.1 Hypo-osmolality and hyponatremia; J98.11 Atelectasis; C55 Malignant neoplasm of uterus, part unspecified; B96.20 Unspecified Escherichia coli [E. coli] as the cause of diseases classified elsewhere; B35.6 Tinea cruris; F17.210 Nicotine dependence, cigarettes, uncomplicated; N95.0 Postmenopausal bleeding; E87.70 Fluid overload, unspecified; E86.0 Dehydration; E87.6 Hypokalemia; F41.9 Anxiety disorder, unspecified; R62.7 Adult failure to thrive; Y95 Nosocomial condition; R12 Heartburn; R19.7 Diarrhea, unspecified; K59.00 Constipation, unspecified
CPT/HCPCS: 71010; 71020; 71250; 74000; 74020; 74177; 74420; 76937; 77263; 77300; 77301; 77334; 77336; 77338; 77386; 77387; 77427; 80048; 80053; 80074; 80202; 81001; 82550; 82552; 82565; 83605; 83735; 84155; 84484; 85025; 85027; 85610; 85730; 86703; 86850; 86900; 86901; 87040; 87077; 87086; 87186; 87205; 93005; 94060; 94150; 94620; 94640; 94664; 96365; 96375; 96376; 99222; C1769; C9113; J1100; J1170; J1940; J1956; J2212; J2270; J2370; J2405; J2543; J2765; J3010; J3370; J3480; J7030; J7042; J7050; J7626; J7644; P9047; Q9963; Q9967

== ENCOUNTER 2017-04-24 10:05 | Day surgery (SDC) | payer OTHER ==
[~2017-04-24 10:05] MED LIST changes: +DEXA2TAB PO; +FURO20TA PO; +MORP1TAB26 PO; +NYST10007 TOPICAL; +OXYC-392 PO; +OXYGENDME NAS.CANULA; +POLY17PO3 PO; +SENN1TAB PO
[2017-04-24 10:53] VITALS: BP 118/82; PULSE 104; RESP 14; TEMP 97.2; O2SAT 95
[2017-04-24 11:30] VITALS: BP 117/68; PULSE 100; RESP 18; TEMP 98; O2SAT 98
--- NOTE | 2017-04-24 11:31 | RADRPT ---
EXAM DATE/TIME: 04/24/2017 10:48 [facility] COMPARISON: No previous studies available for comparison. INDICATIONS : Enlarged lymph node in left neck. MEDICAL HISTORY : Uterine cancer. Radiation therapy. SURGICAL HISTORY : Tonsillectomy. Dilation and curettage. Surgical removal of pin from right foot. Left ureteral stent . ENCOUNTER: Initial ACUITY: 1 week PAIN SCORE: 1/10 LOCATION: Left neck ORGAN: Left lymph node neck SPECIMENS: Four core specimen(s) submitted for pathologic evaluation. DEVICE: 18 gauge Temno needle Post procedure scanning reveals no hematoma or other complication. The possibility does exist that the tissue obtained will be non-diagnostic. If the sample is non-cuauhtemoc gnostic a repeat biopsy or surgical biopsy may need to be performed. TECHNIQUE: 1. Ultrasound guidance for needle biopsy. 2. Needle biopsy. The risks, benefits and alternatives to the procedure were explained and verbal and written consent w as obtained. The site was prepped in sterile fashion. Full sterile technique was used, including ca p, mask, sterile gloves and gown and a large sterile sheet. Hand hygiene and 2% chlorhexidine and/or betadine/alcohol prep was utilized per protocol for cutaneous antisepsis. The skin and subcutaneous tissues were infiltrated with local anesthetic solution. Sterile gel and sterile probe cover were u tilized for ultrasound guidance. With the patient on the ultrasound table, images were obtained. A needle was advanced into the identified target and the number of specimens as above obtained and carbajal bmitted for pathologic evaluation. The patient tolerated the procedure well and left the ultrasound suite in stable condition. CONCLUSION: Uncomplicated ultrasound guided needle biopsy. Harish Diaz MD on April 24, 2017 at 11:30 Board Certified Radiologist. This report was verified electronically.
[2017-04-24] MEDS ORDERED: LIDOCAINE HCL 1% PF 30 ML VIAL ONE (11:32)
[2017-04-24 11:45] VITALS: BP 116/72; PULSE 99; RESP 18; O2SAT 100
[2017-05-03] MEDS ORDERED: FIBE625T10 PO (09:10)
[2017-05-03] MEDS ORDERED: VENTAER INH (09:10)
== END 2017-04-24 11:49 | disposition home or self-care (01) ==
LOC: HRAD 10:05 → HRIP 10:28 → HRAD 11:49
PROVIDERS: ATTEND Radiology Radiation Oncology
DX: R59.0 Localized enlarged lymph nodes (principal); Z85.42 Personal history of malignant neoplasm of other parts of uterus; Z92.3 Personal history of irradiation
CPT/HCPCS: 38505; 76942; 88305; 88307

== ENCOUNTER → 2017-07-04 | Outpatient (CLI) | payer OTHER ==
[~2017-07-04] MED LIST changes: -DEXA2TAB PO; +FIBE625T10 PO; -FURO20TA PO; -HYDR-3533 PO; -NYST10007 TOPICAL; -POLY17PO3 PO; -SENN1TAB PO; +VENTAER INH
[2017-07-04 14:03] LABS: BLOOD GAS BASE EXCESS 0.1 mmol/L (-2-2); BLOOD GAS CARBOXYHEMOGLOBIN 6.9 % (0-4); BLOOD GAS HCO3 24 mmol/L (22-26); BLOOD GAS METHEMOGLOBIN 1.2 % (0-2); BLOOD GAS O2 HGB SATURATION 87 % (90-100); BLOOD GAS OXYGEN CONTENT 18.2 Vol % (12.0-20.0); BLOOD GAS PCO2 39 mmHg (38-42); BLOOD GAS PO2 74 mmHg (61-120); BLOOD GAS TOTAL HGB 14.8 G/DL (12.0-16.0); CRITICAL VALUE YES; DRAW SITE RT RADIAL; FIO2 21 %; NUMBER OF ARTERIAL PUNCTURES 1; STAT NO; TEMP CORR TO 98.6; ULNAR PULSE PRESENT
--- NOTE | 2017-07-04 15:53 | RADRPT ---
EXAM DATE/TIME: 07/04/2017 13:50 [facility] COMPARISON: CT SIMULATION, April 20, 2017, 15:32. CHEST PA & LAT, April 10, 2017, 19:44. INDICATIONS : Short of breath. MEDICAL HISTORY : Stomach, uterine, and neck cancer per pt. Patient is having chemo. SURGICAL HISTORY : None. ENCOUNTER: Initial ACUITY: 1 day PAIN SCORE: 0/10 LOCATION: Bilateral chest FINDINGS: The examination demonstrates a very large emphysematous bleb which encompasses the majority of the le ft upper lobe. There are COPD changes with chronic interstitial fibrotic changes. These changes are s table compared to previous exam. The heart is normal in size. The osseous structures are intact. CONCLUSION: 1. Large emphysematous bleb encompassing most of the left upper lobe. Stable compared to previous. 2. Advanced COPD changes. Pablo Ornelas MD on July 04, 2017 at 15:50 Board Certified Radiologist. This report was verified electronically.
--- NOTE | 2017-07-10 09:34 | RSPPFT ---
DATE OF PROCEDURE: 07/04/17 COMMENTS: Spirometry with FVC of 1.8, FEV1 of 0.7, FEV1/FVC ratio at 40%. Slow vital capacity is 48% of predicted. TLC is 112%. Diffusion capacity is 32%. Room air arterial blood gases show pH of 7.41, PCO2 of 39, PO2 of 74. IMPRESSION: 1. Severe airways obstruction. 2. Non-significant response to acutely inhaled bronchodilator. 3. Adequate oxygenation and alveolar ventilation. 4. No evidence of airways restriction. 5. Severe reduction in diffusion capacity.
== END ==
LOC: HRSP 12:40
PROVIDERS: ATTEND Internal Medicine Sleep Medicine
DX: R06.89 Other abnormalities of breathing (principal)
CPT/HCPCS: 36600; 71020; 82805; 94060; 94726; 94729

== ENCOUNTER 2017-07-30 20:27 | Emergency (ER) | payer OTHER ==
[~2017-07-30] VITALS: Ht 154.9 cm; Wt 66.4 kg
[2017-07-30 20:32] VITALS: BP 174/84; PULSE 104; RESP 20; TEMP 98.8; O2SAT 96
[2017-07-30] MEDS ORDERED: FURO1TAB62 PO (21:03)
[2017-07-30] MEDS ORDERED: HYDROmorphone HCL PF 2 MG/ML VIAL IV PUSH ONE (21:15)
[2017-07-30] MEDS ORDERED: ONDANSETRON HCL 4 MG/2 ML VIAL ONE (21:23)
[2017-07-30] MEDS ORDERED: ONDANSETRON HCL 4 MG/2 ML VIAL IV ONE (21:30)
[2017-07-30 21:36] LABS: AUTOMATED NEUTROPHIL # 10.1 TH/MM3 (1.8-7.7); BASOPHIL # 0.3 TH/MM3 (0-0.2); BASOPHIL % 2.2 % (0.0-2.0); EOSINOPHIL % 0.2 % (0.0-4.0); HEMATOCRIT 45.6 % (35.0-46.0); HEMOGLOBIN 15.3 GM/DL (11.6-15.3); LYMPH % 7.9 % (9.0-44.0); MEAN CELL VOLUME 89.4 FL (80.0-100.0); MEAN CORPUSCULAR HGB CONC 33.6 % (32.0-36.0); MEAN PLATELET VOLUME 7.5 FL (7.0-11.0); MONO % 5.5 % (0.0-8.0); MONOCYTE # 0.7 TH/MM3 (0-0.9); NEUT % 84.2 % (16.0-70.0); PLATELET COUNT 388 TH/MM3 (150-450); RED BLOOD COUNT 5.11 MIL/MM3 (4.00-5.30); RED CELL DISTRIBUTION WIDTH 14.1 % (11.6-17.2); WHITE BLOOD COUNT 12.1 TH/MM3 (4.0-11.0)
[2017-07-30 21:38] LABS: BILIRUBIN, URINE NEG (NEG); BLOOD, URINE MOD (NEG); GLUCOSE,URINE NEG (NEG); KETONE, URINE 15 mg/dL (NEG); NITRITE,URINE NEG (NEG); PH, URINE 6.5 (5.0-8.5); URINE LEUKOCYTE ESTERASE SMALL (NEG)
--- NOTE | 2017-07-30 21:43 | PD ---
HPI Chief Complaint: Pain: Acute or Chronic Time Seen by Provider: 20:43 Travel History International Travel<30 days: No Contact w/Intl Traveler<30days: No Traveled to known affect area: No History of Present Illness HPI This is a 57-year-old female who presents to the emergency department who has a history of stage IV uterine carcinosarcoma who presents to the emergency department with pain in her lower abdomen, constant, severe, worsening over the past 3 days. She says this is similar to her chronic pain that she's experienced with her cancer but she ran out of her morphine and has only had her oxycodone. She says her primary care doctor wouldn't refill her morphine. She has been vomiting and feels sweaty. She is scheduled to see Dr. Clifton her oncologist on . PFSH Past Medical History Cancer: No Cardiovascular Problems: No Diabetes: No Diminished Hearing: No Endocrine: No Gastrointestinal Disorders: Yes (abdominal pain ) Genitourinary: No Hepatitis: No Hiatal Hernia: No Hypertension: No Immune Disorder: No Medical other: No Musculoskeletal: No Neurologic: No Psychiatric: No Immunizations Current: Yes Thyroid Disease: No ?: Not Menopausal: Yes : 0 Para: 0 Dilation and Curettage (D&C): Yes (monday) Past Surgical History Abdominal Surgery: No AICD: No Cardiac Surgery: No Ear Surgery: No Endocrine Surgery: No Eye Surgery: No Genitourinary Surgery: No Gynecologic Surgery: No Joint Replacement: No Neurologic Surgery: No Oral Surgery: Yes (tonsillectomy) Pacemaker: No Thoracic Surgery: No Other Surgery: Yes Social History Alcohol Use: No Tobacco Use: Yes (1 ppd) Substance Use: No Allergies-Medications (Allergen,Severity, Reaction): Coded Allergies: No Known Allergies (Verified Allergy, Unknown, 07/30/17) Uncoded Allergies: ADHESIVES (Allergy, Unknown, rash, 03/14/17) Reported Meds & Prescriptions Reported Meds & Active Scripts Active Fiber Tabs (Calcium Polycarbophil) 625 Mg Tab 625 Mg PO DAILY Ventolin Hfa 18 GM Inh (Albuterol Sulfate) 90 Mcg/Act Aer 2 Puff INH Q4H PRN Oxycodone (Oxycodone HCl) 5 Mg Tab 5 Mg PO Q4H PRN Morphine ER (Morphine Sulfate) 60 Mg Tab 60 Mg PO Q12HR Oxygen (O2) Device Liter SHEYLA.CANULA CONTINUOUS Oxygen Concentrator Portable Gaseous 2 L/min via Nasal Canula Continuous For 99 months Reported Lasix (Furosemide) 20 Mg Tab 20 Mg PO DAILY Review of Systems Except as stated in HPI: all other systems reviewed are Neg Physical Exam Narrative GENERAL: Frail, chronically ill-appearing SKIN: Focused skin assessment warm and dry. HEAD: Atraumatic. Normocephalic. EYES: Pupils equal and round. No injection or drainage. ENT: Moist mucous membranes NECK: Trachea midline. CARDIOVASCULAR: Regular rate and rhythm. No murmur appreciated. RESPIRATORY: Clear to auscultation. Breath sounds equal bilaterally. GASTROINTESTINAL: Abdomen soft, tender to palpation in the lower abdomen with no rebound or guarding. MUSCULOSKELETAL: No obvious deformities. NEUROLOGICAL: Awake and alert. No obvious cranial nerve deficits. Moving all extremities. PSYCHIATRIC: Appropriate mood and affect; insight and judgment normal. Data Data Last Documented VS Vital Signs Date Time Temp Pulse Resp B/P (MAP) Pulse Ox O2 Delivery O2 Flow Rate FiO2 07/30/17 20:32 98.8 104 20 174/84 (114) 96 Orders Orders ^ Insert Iv (07/30/17 21:05) Complete Blood Count With Diff (07/30/17 21:05) Basic Metabolic Panel (Bmp) (07/30/17 21:05) Urinalysis - C+S If Indicated (07/30/17 21:05) Hydromorphone Pf Inj (Dilaudid Pf Inj) (07/30/17 21:15) Ondansetron Inj (Zofran Inj) (07/30/17 21:23) Ondansetron Inj (Zofran Inj) (07/30/17 21:30) Urine Culture (07/30/17 21:20) Labs Laboratory Tests Test 07/30/17 21:20 White Blood Count 12.1 TH/MM3 Red Blood Count 5.11 MIL/MM3 Hemoglobin 15.3 GM/DL Hematocrit 45.6 % Mean Corpuscular Volume 89.4 FL Mean Corpuscular Hemoglobin 30.0 PG Mean Corpuscular Hemoglobin Concent 33.6 % Red Cell Distribution Width 14.1 % Platelet Count 388 TH/MM3 Mean Platelet Volume 7.5 FL Neutrophils (%) (Auto) 84.2 % Lymphocytes (%) (Auto) 7.9 % Monocytes (%) (Auto) 5.5 % Eosinophils (%) (Auto) 0.2 % Basophils (%) (Auto) 2.2 % Neutrophils # (Auto) 10.1 TH/MM3 Lymphocytes # (Auto) 1.0 TH/MM3 Monocytes # (Auto) 0.7 TH/MM3 Eosinophils # (Auto) 0.0 TH/MM3 Basophils # (Auto) 0.3 TH/MM3 CBC Comment DIFF FINAL Differential Comment Urine Color YELLOW Urine Turbidity SLIGHT Urine pH 6.5 Urine Specific [place] 1.015 Urine Protein TRACE mg/dL Urine Glucose (UA) NEG mg/dL Urine Ketones 15 mg/dL Urine Occult Blood MOD Urine Nitrite NEG Urine Bilirubin NEG Urine Leukocyte Esterase SMALL Urine RBC 15-19 /hpf Urine WBC 20-24 /hpf Urine Squamous Epithelial Cells 0-5 /hpf Urine Bacteria RARE /hpf Urine Mucus OCC /lpf Microscopic Urinalysis Comment CULTURE INDICATED Blood Urea Nitrogen 16 MG/DL Creatinine 0.61 MG/DL Random Glucose 106 MG/DL Calcium Level 8.7 MG/DL Sodium Level 134 MEQ/L Potassium Level 3.5 MEQ/L Chloride Level 99 MEQ/L Carbon Dioxide Level 25.3 MEQ/L Anion Gap 10 MEQ/L Estimat Glomerular Filtration Rate 102 ML/MIN [facility] Medical Decision Making Medical Screen Exam Complete: Yes Emergency Medical Condition: Yes Interpretation(s) Afebrile, mild tachycardia, hypertensive Leukocytosis 84% neutrophils Electrolytes are reassuring Urinalysis demonstrates urinary tract infection Differential Diagnosis Cancer pain, urinary tract infection, pyelonephritis, sepsis Narrative Course This is a 57-year-old female with a history of stage IV pelvic cancer who presents to the emergency department with severe pain having been out of her morphine for several days. I confirmed on e-force that the patient is prescribed 60 mg of extended release morphine by Dr. Clifton and that her last prescription was more than 30 days ago. I think it's reasonable to fill her 1 week's worth of this until she follows up with him on . She also has a persistent urinary tract infection. She says she was taking an antibiotic for this but only took 3 doses and then developed some neck pain and was warned that the antibiotic she was taking can cause tendon problems so she discontinued it. I will prescribe the patient Keflex. Patient feels much better after pain control here in the emergency department. I think she can be discharged home. Diagnosis Primary Impression: Cancer associated pain Additional Impression: UTI (urinary tract infection) Qualified Codes: N30.00 - Acute cystitis without hematuria Patient Instructions: General Instructions Additional Instructions: If you develop fever, persistent vomiting, back pain, or inability to eat return to the emergency department as your urine infection may have progressed to a kidney infection. Complete your antibiotics as prescribed. Stay well hydrated with Gatorade or water. Followup with your primary care physician in 2-3 days if your symptoms have not resolved. Med/Other Pt SpecificInfo: Prescription(s) given Scripts Morphine ER (Morphine ER) 60 Mg Tab 60 MG PO BID for Pain Management for 7 Days, #14 TAB 0 Refills Prov: Ynes Moy MD 07/30/17 Cephalexin (Keflex) 500 Mg Cap 500 MG PO Q12H for Infection for 7 Days, #14 CAP 0 Refills Prov: Ynes Moy MD 07/30/17 Disposition: 01 DISCHARGE HOME Condition: Stable Ynes Moy MD Jul 30, 2017 21:43
[2017-07-30 21:44] LABS: URINE COLOR YELLOW (YELLW/STRAW)
[2017-07-30 21:45] LABS: MUCUS URINE OCC /lpf (OCC)
[2017-07-30 21:46] LABS: RBC, URINE 15-19 /hpf (0-3); SQUAMOUS EPITHELIAL CELL URINE 0-5 /hpf (0-5)
[2017-07-30 21:47] LABS: BACTERIA, URINE RARE /hpf
[2017-07-30 21:48] LABS: CALCIUM 8.7 MG/DL (8.5-10.1)
[2017-07-30 21:49] LABS: BICARBONATE 25.3 MEQ/L (21.0-32.0)
[2017-07-30 21:52] LABS: CREATININE 0.61 MG/DL (0.50-1.00)
[2017-07-30] MEDS ORDERED: CEPH-460 PO (22:08)
[2017-07-30] MEDS ORDERED: MORP1TAB26 PO (22:08)
[2017-07-30 22:24] VITALS: BP 113/62
== END 2017-07-30 22:28 | disposition home or self-care (01) ==
LOC: PHED 20:27
DX: G89.3 Neoplasm related pain (acute) (chronic) (principal); N39.0 Urinary tract infection, site not specified; C55 Malignant neoplasm of uterus, part unspecified; R00.0 Tachycardia, unspecified; D72.829 Elevated white blood cell count, unspecified; F17.210 Nicotine dependence, cigarettes, uncomplicated
CPT/HCPCS: 80048; 81001; 85025; 87086; 96374; 96375; 99284; J1170; J2405

== ENCOUNTER 2017-08-04 06:14 | Day surgery (SDC) | payer OTHER ==
[2017-08-04] VITALS (7 sets, daily range): BP systolic 94–142; BP diastolic 70–88; PULSE 77–98; RESP 20; TEMP 98.5–98.8; O2SAT 90–97
[~2017-08-04] VITALS: Ht 152.4 cm; Wt 43.2 kg
[~2017-08-04 06:14] MED LIST changes: +CEPH-460 PO; +FURO1TAB62 PO
[2017-08-04] MEDS ORDERED: IBUP200C PO (06:49)
[2017-08-04] MEDS ORDERED: SODIUM CHLOR 0.9% 250 ML INJ 250 ML ONE (07:41)
[2017-08-04] MEDS ORDERED: VANCOMYCIN HCL 1000 MG VIAL ONE (07:41)
[2017-08-04] MEDS ORDERED: MIDAZOLAM HCL 2 MG/2 ML VIAL ONE (07:54)
[2017-08-04] MEDS ORDERED: SODIUM CHLORIDE 0.9% 1000 ML IV SCH (08:00)
[2017-08-04] MEDS ORDERED: CHLORHEXIDINE GLUCONATE 2 % 1 PACK (2 CLOTHS) TOPICAL SCH (08:00)
[2017-08-04] MEDS ORDERED: ceFAZolin 2 GM PREMIX 50 ML - implanted port/tunneled catheter insertion IV SCH (08:00)
[2017-08-04] MEDS ORDERED: VANCOMYCIN 1000 MG/NS 250 ML - implanted port/tunneled catheter IV SCH ×2 (08:00)
[2017-08-04] MEDS ORDERED: POVIDONE IODINE 5% (ANTISEPSIS KIT) 4 APPLICATIONS EACH NARE SCH (08:00)
--- NOTE | 2017-08-04 10:00 | RADRPT ---
EXAM DATE/TIME: 08/04/2017 09:12 [facility] COMPARISON: No previous studies available for comparison. 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 MEDICAL HISTORY : COPD, Asthma, Pelvic mass, Emphysema, Radiation therapy SURGICAL HISTORY : Endocervical mass biopsy, Cystoscopy ENCOUNTER: Initial ACUITY: 4-6 months PAIN SCORE: 0/10 FLUORO TIME: 0.5 minutes IMAGE SERIES: 1 SEDATION TIME: 30 minutes ACCESS: Right internal jugular vein SEDATION: 1.) 3 mg midazolam (Versed) IV 2.) 150 mcg fentanyl (Sublimaze) IV Prophylactic antibiotics were administered with appropriate pre-procedure timing. Vancomycin within 2 hours of procedure, Ancef (or alternative) within 1 hour of procedure. DEVICE: 1. 8 Malaysian single lumen Bard Power Port PROCEDURE : 1. Continuous pulse oximetry and EKG monitoring. 2. Intravenous conscious sedation. 3. Ultrasound guidance for venous access. 4. Fluoroscopic guided implantable central venous port placement. The patient was placed supine. The neck was prepped in sterile fashion. Full sterile technique was u sed, including cap, mask, sterile gloves and gown, and a large sterile sheet. Hand hygiene and 2% ch lorhexidine Betadine was utilized per protocol for cutaneous antisepsis with appropriate dry time for site. Sterile gel and sterile probe cover were utilized for ultrasound guidance. The skin and sub cutaneous tissues were infiltrated with local anesthetic solution. Under direct ultrasound guidance, central venous access was accomplished in the targeted vessel. The ultrasound images depicting access guidance were stored and saved to PACS for permanent record. A s ubcutaneous pocket was created using blunt dissection. The port was introduced to the pocket. The c atheter tubing was fed through a subcutaneous tunnel to the venotomy site. The catheter tubing was c ut to a suitable length and then was introduced through a valved Peel-Away sheath and positioned with catheter tubing tip at the cavo-atrial junction level. The pocket incision was closed with subcutic ular Vicryl suture. Steri-Strips were applied. The port was flushed and locked with heparin solutio n per protocol. Sterile dressing was applied to the site. The patient tolerated the procedure well. Conscious sedation was performed with the prescribed dosages and duration as above in the presence of an independent trained radiology nurse to assist in the monitoring of the patient. EKG and oximetry remained stable throughout the procedure. The patient tolerated the procedure well and there were no complications. The patient was sent to post anesthesia recovery in stable condition. CONCLUSION: Uncomplicated ultrasound and fluoroscopic guided implanted central venous port catheter placement as described in detail above. An 8 Malaysian Power port was placed. Mateo Madden MD on August 04, 2017 at 9:57 Board Certified Radiologist. This report was verified electronically.
--- NOTE | 2017-08-04 10:40 | PD.RAD ---
Post Procedure Progress Note Pre Procedure Diagnosis: (1) Carcinosarcoma of uterus Post Procedure Diagnosis: (1) Carcinosarcoma of uterus Procedure Date: Aug 04, 2017 Supervising Radiologist: Mateo Madden Proceduralist/Assist: Karina Jane RT(R) Estimated blood loss: none Anesthesia: Local, Conscious Sedation Plan of Activity Patient to Unit: [facility] Patient Condition: Good See PACS Report for procedural detail/treatment Central Venous Access Device Procedure 1 Right Internal Jugular Infusaport Placement single lumen Maori: 8 Mateo Madden MD Aug 04, 2017 10:40
[2017-08-04] MEDS ORDERED: SODIUM CHLORIDE 0.9% FLUSH 10 ML FLUSH IVF PRN (10:45)
== END 2017-08-04 12:15 | disposition home or self-care (01) ==
LOC: HROP 06:14 → HRIP 06:32 → HROP 12:15
PROVIDERS: ATTEND Obstetrics & Gynecology Gynecologic Oncology
DX: C55 Malignant neoplasm of uterus, part unspecified (principal)
CPT/HCPCS: 36561; 76937; 77001; 99152; 99153; C1788; J0690; J1642; J2250; J3010; J3370; J7030; J7050

== ENCOUNTER 2017-09-07 17:17 | Emergency (ER) | payer OTHER ==
[2017-09-07] VITALS (7 sets, daily range): BP systolic 118–161; BP diastolic 65–91; PULSE 94–119; RESP 18–28; TEMP 98.4; O2SAT 94–100
[~2017-09-07] VITALS: Ht 152.4 cm; Wt 41.3 kg
[~2017-09-07 17:17] MED LIST changes: -FIBE625T10 PO; -FURO1TAB62 PO; +IBUP200C PO
[2017-09-07] MEDS ORDERED: SODIUM CHLOR 0.9% 1000 ML INJ 1,000 ML IV SCH (17:40)
[2017-09-07] MEDS ORDERED: SODIUM CHLORIDE 0.9% FLUSH 10 ML FLUSH IV FLUSH PRN (17:45)
[2017-09-07] MEDS ORDERED: RESP: ALBUTEROL 2.5 MG/IPRATROPIUM 0.5 MG NEB (SCH) NEB ONE (17:45)
[2017-09-07] MEDS ORDERED: ONDANSETRON HCL 4 MG/2 ML VIAL IVP ONE (17:45)
[2017-09-07] MEDS ORDERED: MORPHINE SULFATE 4 MG/ML INJ IV PUSH ONE (17:45)
[2017-09-07 17:54] LABS: AUTOMATED NEUTROPHIL # 6.3 TH/MM3 (1.8-7.7); BASOPHIL % 0.2 % (0.0-2.0); EOSINOPHIL % 0.2 % (0.0-4.0); HEMATOCRIT 37.8 % (35.0-46.0); HEMOGLOBIN 13.1 GM/DL (11.6-15.3); LYMPH % 8.8 % (9.0-44.0); LYMPHOCYTE # 0.6 TH/MM3 (1.0-4.8); MEAN CELL VOLUME 86.4 FL (80.0-100.0); MEAN CORPUSCULAR HEMOGLOBIN 29.9 PG (27.0-34.0); MEAN CORPUSCULAR HGB CONC 34.6 % (32.0-36.0); MEAN PLATELET VOLUME 7.5 FL (7.0-11.0); MONO % 1.4 % (0.0-8.0); MONOCYTE # 0.1 TH/MM3 (0-0.9); NEUT % 89.4 % (16.0-70.0); PLATELET COUNT 314 TH/MM3 (150-450); RED BLOOD COUNT 4.38 MIL/MM3 (4.00-5.30); RED CELL DISTRIBUTION WIDTH 14.1 % (11.6-17.2)
[2017-09-07 18:00] LABS: CHLORIDE 101 MEQ/L (98-107); SODIUM (NA) 138 MEQ/L (136-145)
[2017-09-07 18:03] LABS: ALBUMIN 3.6 GM/DL (3.4-5.0); BLOOD UREA NITROGEN 21 MG/DL (7-18); GLUCOSE,RANDOM 109 MG/DL (74-106)
[2017-09-07 18:05] LABS: PROTHROMBIN TIME - PATIENT 10.6 SEC (9.8-11.6)
[2017-09-07 18:06] LABS: ALT (GPT) 23 U/L (10-53); AST (GOT) 30 U/L (15-37); CREATININE 0.65 MG/DL (0.50-1.00); GLOMERULAR FILTRATION RATE 95 ML/MIN (>89)
[2017-09-07 18:08] LABS: TOTAL BILIRUBIN ADULT 0.7 MG/DL (0.2-1.0)
[2017-09-07 18:09] LABS: ALKALINE PHOSPHATASE 150 U/L (45-117)
[2017-09-07] MEDS ORDERED: HYDROmorphone HCL PF 1 MG/ML VIAL IV PUSH ONE (18:30)
[2017-09-07] MEDS ORDERED: METOCLOPRAMIDE INJ 10 MG in SODIUM CHLORIDE 0.9% INJ 50 ML IV ONE (18:30)
--- NOTE | 2017-09-07 18:37 | PD ---
HPI Chief Complaint: GI Complaint Time Seen by Provider: 17:34 Travel History International Travel<30 days: No Contact w/Intl Traveler<30days: No Traveled to known affect area: No History of Present Illness HPI Patient is a 57 year old female with history of metastatic uterine cancer, who comes in complaining of abdominal pain and nausea and vomiting. Per family, she is undergoing palliative chemo currently, last dose was 2 weeks ago. She denies having any fevers. She says she was short of breath two days ago, but that has improved. She has history of COPD, and did not use her nebulizer today. She has not been able to keep her pain medicine down today because of the vomiting. She says she had a bowel movement today and it was normal. She says nothing is improving her symptoms. Severity is moderate. PFSH Past Medical History Cancer: Yes (uterine METS TO NECK) Cardiovascular Problems: No Chemotherapy: Yes Diabetes: No Diminished Hearing: No Endocrine: No Gastrointestinal Disorders: Yes (abdominal pain ) Genitourinary: No Hepatitis: No Hiatal Hernia: No Hypertension: No Immune Disorder: No Implanted Vascular Access Dvce: Yes Musculoskeletal: No Neurologic: No Psychiatric: No Immunizations Current: Yes Thyroid Disease: No Tetanus Vaccination: < 5 Years Influenza Vaccination: Yes ?: Not Menopausal: Yes : 0 Para: 0 Dilation and Curettage (D&C): Yes (monday) Past Surgical History Abdominal Surgery: No AICD: No Cardiac Surgery: No Ear Surgery: No Endocrine Surgery: No Eye Surgery: No Genitourinary Surgery: No Gynecologic Surgery: No Joint Replacement: No Neurologic Surgery: No Oral Surgery: Yes (tonsillectomy) Pacemaker: No Thoracic Surgery: No Other Surgery: Yes Social History Alcohol Use: No Tobacco Use: No Substance Use: No Allergies-Medications (Allergen,Severity, Reaction): Coded Allergies: No Known Allergies (Verified Allergy, Unknown, 09/07/17) Uncoded Allergies: ADHESIVES (Allergy, Unknown, rash, 03/14/17) Reported Meds & Prescriptions Reported Meds & Active Scripts Active Zofran Odt (Ondansetron Odt) 4 Mg Tab 4 Mg SL Q6HR PRN Keflex (Cephalexin) 500 Mg Capsule 500 Mg PO Q6H 7 Days Ventolin Hfa 18 GM Inh (Albuterol Sulfate) 90 Mcg/Act Aer 2 Puff INH Q4H PRN Oxycodone (Oxycodone HCl) 5 Mg Tab 5 Mg PO Q4H PRN Morphine ER (Morphine Sulfate) 60 Mg Tab 60 Mg PO Q12HR Oxygen (O2) Device Liter SHEYLA.CANULA CONTINUOUS Oxygen Concentrator Portable Gaseous 2 L/min via Nasal Canula Continuous For 99 months Reported Ibuprofen 200 Mg Cap 200 Mg PO Q6H PRN Review of Systems Except as stated in HPI: all other systems reviewed are Neg General / Constitutional: No: Fever, Chills HENT: No: Headaches, Lightheadedness Cardiovascular: No: Chest Pain or Discomfort Respiratory: Positive: Shortness of Breath Gastrointestinal: Positive: Nausea, Vomiting, Abdominal Pain Genitourinary: No: Dysuria Musculoskeletal: No: Myalgias, Weakness Skin: No Rash, No Change in Pigmentation Neurologic: No: Weakness, Dizziness Physical Exam Narrative GENERAL: Awake and alert, in obvious discomfort. SKIN: Focused skin assessment warm/dry. HEAD: Atraumatic. Normocephalic. EYES: Pupils equal and round. No scleral icterus. ENT: Mucous membranes pink and moist. NECK: Trachea midline. No JVD. CARDIOVASCULAR: Regular rate and rhythm. No murmur appreciated. RESPIRATORY: No accessory muscle use. Occasional wheezing. Breath sounds equal bilaterally. GASTROINTESTINAL: Abdomen soft, nondistended. Suprapubic tenderness, no rebound or guarding. MUSCULOSKELETAL: No obvious deformities. No clubbing. No cyanosis. No edema. NEUROLOGICAL: Awake and alert. No obvious cranial nerve deficits. Motor grossly within normal limits. Normal speech. PSYCHIATRIC: Appropriate mood and affect; insight and judgment normal. Data Data Last Documented VS Vital Signs Date Time Temp Pulse Resp B/P (MAP) Pulse Ox O2 Delivery O2 Flow Rate FiO2 09/07/17 19:22 98.4 101 18 119/78 (92) 99 Nasal Cannula 3.00 Orders Orders Complete Blood Count With Diff (09/07/17 17:40) Comprehensive Metabolic Panel (09/07/17 17:40) Lactic Acid (09/07/17 17:40) Prothrombin Time / Inr (Pt) (09/07/17 17:40) Act Partial Throm Time (Ptt) (09/07/17 17:40) Urinalysis - C+S If Indicated (09/07/17 17:40) Iv Access Insert/Monitor (09/07/17 17:40) Ecg Monitoring (09/07/17 17:40) Oximetry (09/07/17 17:40) Morphine Inj (Morphine Inj) (09/07/17 17:45) Ondansetron Inj (Zofran Inj) (09/07/17 17:45) Sodium Chlor 0.9% 1000 Ml Inj (Ns 1000 M (09/07/17 17:40) Sodium Chloride 0.9% Flush (Ns Flush) (09/07/17 17:45) Albuterol-Ipratropium Neb (Duoneb Neb) (09/07/17 17:45) Hydromorphone Pf Inj (Dilaudid Pf Inj) (09/07/17 18:30) Metoclopramide Inj (Reglan Inj) (09/07/17 18:30) Chest, Single Ap (09/07/17 ) Hydromorphone Pf Inj (Dilaudid Pf Inj) (09/07/17 18:45) Urine Culture (09/07/17 19:10) Ed Discharge Order (09/07/17 19:50) Labs Laboratory Tests Test 09/07/17 17:35 09/07/17 19:10 White Blood Count 7.0 TH/MM3 Red Blood Count 4.38 MIL/MM3 Hemoglobin 13.1 GM/DL Hematocrit 37.8 % Mean Corpuscular Volume 86.4 FL Mean Corpuscular Hemoglobin 29.9 PG Mean Corpuscular Hemoglobin Concent 34.6 % Red Cell Distribution Width 14.1 % Platelet Count 314 TH/MM3 Mean Platelet Volume 7.5 FL Neutrophils (%) (Auto) 89.4 % Lymphocytes (%) (Auto) 8.8 % Monocytes (%) (Auto) 1.4 % Eosinophils (%) (Auto) 0.2 % Basophils (%) (Auto) 0.2 % Neutrophils # (Auto) 6.3 TH/MM3 Lymphocytes # (Auto) 0.6 TH/MM3 Monocytes # (Auto) 0.1 TH/MM3 Eosinophils # (Auto) 0.0 TH/MM3 Basophils # (Auto) 0.0 TH/MM3 CBC Comment DIFF FINAL Differential Comment Prothrombin Time 10.6 SEC Prothromb Time International Ratio 1.0 RATIO Activated Partial Thromboplast Time 23.8 SEC Blood Urea Nitrogen 21 MG/DL Creatinine 0.65 MG/DL Random Glucose 109 MG/DL Total Protein 8.0 GM/DL Albumin 3.6 GM/DL Calcium Level 9.0 MG/DL Alkaline Phosphatase 150 U/L Aspartate Amino Transf (AST/SGOT) 30 U/L Alanine Aminotransferase (ALT/SGPT) 23 U/L Total Bilirubin 0.7 MG/DL Sodium Level 138 MEQ/L Potassium Level 3.9 MEQ/L Chloride Level 101 MEQ/L Carbon Dioxide Level 29.0 MEQ/L Anion Gap 8 MEQ/L Estimat Glomerular Filtration Rate 95 ML/MIN Lactic Acid Level 1.1 mmol/L Urine Color YELLOW Urine Turbidity HAZY Urine pH 8.0 Urine Specific [place] 1.019 Urine Protein 100 mg/dL Urine Glucose (UA) NEG mg/dL Urine Ketones 40 mg/dL Urine Occult Blood MOD Urine Nitrite NEG Urine Bilirubin NEG Urine Leukocyte Esterase MOD Urine RBC 0-3 /hpf Urine WBC 25-49 /hpf Urine Squamous Epithelial Cells 0-5 /hpf Microscopic Urinalysis Comment CULTURE INDICATED MDM Medical Decision Making Medical Screen Exam Complete: Yes Emergency Medical Condition: Yes Medical Record Reviewed: Yes Differential Diagnosis Pain management versus intractable vomiting versus UTI versus pyelonephritis Narrative Course Patient is a 57-year-old female with history of metastatic uterine cancer, who comes in complaining of abdominal pain with nausea and vomiting. She has not been able to keep any of her pain medicine down today. Exam shows abdomen is soft, tender to the suprapubic area. IV established, labs sent. Labs show no acute abnormalities. Urinalysis is positive for bacteria. She was recently on Cipro, she finished this 2 days ago, but the urine culture from this urine did not grow out any bacteria. Patient given IV fluids, pain medicine, anti-emetics. She reports feeling better after Dilaudid and Reglan. She is drinking water without vomiting. She was given 1 DuoNeb due to wheezing. Her chest x-ray shows severe emphysema , no other abnormalities. Last 24 hours Impressions Chest X-Ray 09/07/17 0000 Signed Impressions: Service Date/Time: August 19:06 - CONCLUSION: 1. Severe emphysema. No acute findings. Hua Khan MD Patient would like to go home. She does have pain medicine at home. She will be provided prescriptions for Keflex as well as Zofran ODT. She is advised to follow-up with her doctors. Advised to return anytime for any worsening symptoms. Diagnosis Primary Impression: UTI (urinary tract infection) Qualified Codes: N30.00 - Acute cystitis without hematuria Additional Impression: Carcinosarcoma of uterus Patient Instructions: Abdominal Pain (ED), General Instructions, Urinary Tract Infection in Women (ED) Additional Instructions: Take pain medicine as needed. Take antinausea medicine as needed. Drink plenty of fluids. Follow-up with your doctors. Finish your antibiotics. Return to the ED as needed for any worsening symptoms. Scripts Albuterol 8.5 GM Inh (Proair Hfa 8.5 GM Inh) 90 Mcg/Act Aer 2 PUFF INH Q4-6H Y for SHORTNESS OF BREATH, #1 INHALER 0 Refills 108 mcg/actuation Prov: Basia Fan MD 09/07/17 Ondansetron Odt (Zofran Odt) 4 Mg Tab 4 MG SL Q6HR Y for Nausea/Vomiting, #20 TAB 0 Refills Prov: Basia Fan MD 09/07/17 Cephalexin (Keflex) 500 Mg Capsule 500 MG PO Q6H for Infection for 7 Days, #28 CAP 0 Refills Prov: Basia Fan MD 09/07/17 Disposition: 01 DISCHARGE HOME Condition: Stable Basia Fan MD Sep 07, 2017 18:37
[2017-09-07] MEDS ORDERED: HYDROmorphone HCL PF 2 MG/ML VIAL IV PUSH ONE (18:45)
[2017-09-07 19:14] LABS: BILIRUBIN, URINE NEG (NEG); BLOOD, URINE MOD (NEG); GLUCOSE,URINE NEG (NEG); KETONE, URINE 40 mg/dL (NEG); NITRITE,URINE NEG (NEG); URINE LEUKOCYTE ESTERASE MOD (NEG)
--- NOTE | 2017-09-07 19:23 | RADRPT ---
EXAM DATE/TIME: 09/07/2017 19:06 [facility] COMPARISON: CHEST PA & LAT, April 10, 2017, 19:44. INDICATIONS : Shortness of breath and vomiting. MEDICAL HISTORY : Uterine cancer. Radiation therapy. Chemotherapy. SURGICAL HISTORY : Tonsillectomy. Dilation and curettage. Surgical removal of pin from right foot. Left ureteral stent. Port. ENCOUNTER: Initial ACUITY: 1 day PAIN SCORE: 0/10 LOCATION: Bilateral chest FINDINGS: There is severe emphysema especially in upper left lung, stable since April 10. [id number] tip in superior vena cava. Heart size normal. No effusion. No new infiltrate. CONCLUSION: 1. Severe emphysema. No acute findings. Hua Khan MD on September 07, 2017 at 19:20 Board Certified Radiologist. This report was verified electronically.
[2017-09-07 19:28] LABS: URINE COLOR YELLOW (YELLW/STRAW)
[2017-09-07 19:30] LABS: RBC, URINE 0-3 /hpf (0-3); SQUAMOUS EPITHELIAL CELL URINE 0-5 /hpf (0-5)
[2017-09-07] MEDS ORDERED: CEPH-460 PO (19:49)
[2017-09-07] MEDS ORDERED: ZOFR4TAB3 SL (19:49)
[2017-09-07] MEDS ORDERED: ALBUAER3 INH (20:43)
== END 2017-09-07 20:49 | disposition home or self-care (01) ==
LOC: PHED 17:17
DX: N30.00 Acute cystitis without hematuria (principal); C55 Malignant neoplasm of uterus, part unspecified; J44.9 Chronic obstructive pulmonary disease, unspecified; Z79.899 Other long term (current) drug therapy
CPT/HCPCS: 71045; 80053; 81001; 83605; 85025; 85610; 85730; 87086; 94664; 96361; 96365; 96375; 99284; J1170; J2270; J2405; J2765; J7030

== ENCOUNTER 2017-12-19 14:27 | Inpatient (IN) | payer MEDICAID, OTHER ==
[~2017-12-19] VITALS: Ht 152.4 cm; Wt 50.0 kg
[2017-12-19] VITALS (9 sets, daily range): BP systolic 96–127; BP diastolic 62–79; PULSE 99–128; RESP 20–26; TEMP 99–101.4; O2SAT 94–98
[~2017-12-19 14:27] MED LIST changes: +ALBUAER3 INH; +ZOFR4TAB3 SL
--- NOTE | 2017-12-19 15:30 | PD ---
HPI Chief Complaint: Edema Time Seen by Provider: 15:11 Travel History International Travel<30 days: No Contact w/Intl Traveler<30days: No Traveled to known affect area: No History of Present Illness HPI This 57-year-old female is here with complaint of fever. She has a history of stage IV uterine carcinosarcoma. She is being treated by Dr. Clifton. She has had surgery and radiation. She is currently getting chemotherapy. Her last chemotherapy was about a week and a half ago. She had a blood transfusion 2 days ago. She has been short of breath for several months and has been on home oxygen since last March. She does smoke cigarettes. She has been having quite a severe pain in her left leg for several days on for the last few days she is unable to walk on the leg due to pain. The pain she is having is in her left femur. She has noted some swelling of her right foot the last day or so. PFSH Past Medical History Cancer: Yes (uterine METS TO NECK) Cardiovascular Problems: No Chemotherapy: Yes Diabetes: No Diminished Hearing: No Endocrine: No Gastrointestinal Disorders: Yes (abdominal pain ) Genitourinary: No Hepatitis: No Hiatal Hernia: No Hypertension: No Immune Disorder: No Implanted Vascular Access Dvce: Yes Musculoskeletal: No Neurologic: No Psychiatric: No Respiratory: Yes Immunizations Current: Yes Thyroid Disease: No ?: Not Menopausal: Yes : 0 Para: 0 Dilation and Curettage (D&C): Yes (monday) Past Surgical History Abdominal Surgery: No AICD: No Cardiac Surgery: No Ear Surgery: No Endocrine Surgery: No Eye Surgery: No Genitourinary Surgery: No Gynecologic Surgery: No Joint Replacement: No Neurologic Surgery: No Oral Surgery: Yes (tonsillectomy) Pacemaker: No Thoracic Surgery: No Other Surgery: Yes Social History Alcohol Use: No Tobacco Use: No Substance Use: No Allergies-Medications (Allergen,Severity, Reaction): Coded Allergies: No Known Allergies (Verified Allergy, Unknown, 12/19/17) Uncoded Allergies: ADHESIVES (Allergy, Unknown, rash, 03/14/17) Reported Meds & Prescriptions Reported Meds & Active Scripts Active Proair Hfa 8.5 GM Inh (Albuterol Sulfate) 90 Mcg/Act Aer 2 Puff INH Q4-6H PRN 108 mcg/actuation Zofran Odt (Ondansetron Odt) 4 Mg Tab 4 Mg SL Q6HR PRN Ventolin Hfa 18 GM Inh (Albuterol Sulfate) 90 Mcg/Act Aer 2 Puff INH Q4H PRN Oxycodone (Oxycodone HCl) 5 Mg Tab 5 Mg PO Q4H PRN Morphine ER (Morphine Sulfate) 60 Mg Tab 60 Mg PO Q12HR Oxygen (O2) Device Liter SHEYLA.CANULA CONTINUOUS Oxygen Concentrator Portable Gaseous 2 L/min via Nasal Canula Continuous For 99 months Reported Protonix (Pantoprazole Sodium) 20 Mg Tab 20 Mg PO DAILY Ativan (Lorazepam) 0.5 Mg Tab 0.5 Mg PO DAILY PRN Megestrol (Megestrol Acetate) 40 Mg Tab 40 Mg PO QID Sertraline (Sertraline HCl) 25 Mg Tab 25 Mg PO DAILY Review of Systems General / Constitutional: Positive: Fever, Chills Eyes: No: Diploplia, Blurred Vision HENT: No: Headaches, Vertigo Cardiovascular: No: Chest Pain or Discomfort, Palpitations Respiratory: No: Cough, Shortness of Breath Gastrointestinal: Positive: Nausea, Abdominal Pain Genitourinary: No: Urgency, Frequency Musculoskeletal: Positive: Myalgias, Arthralgias, Pain Skin: No Rash Neurologic: Positive: Weakness, Dizziness Psychiatric: No: Anxiety Endocrine: No: Heat Intolerance Hematologic/Lymphatic: No: Easy Bruising Physical Exam Narrative GENERAL: Thin chronically ill appearing female. She is on oxygen. Heart rate is 120. Temp is 100 SKIN: Focused skin assessment warm/dry. HEAD: Atraumatic. Normocephalic. EYES: Pupils equal and round. No scleral icterus. No injection or drainage. ENT: No nasal bleeding or discharge. Mucous membranes pink and moist. NECK: Trachea midline. No JVD. CARDIOVASCULAR: Regular rate and rhythm. No murmur appreciated. RESPIRATORY: There is accessory muscle use. There are diminished breath sounds bilaterally GASTROINTESTINAL: Abdomen soft, abdomen is diffusely tender and firm MUSCULOSKELETAL: No obvious deformities. There is tenderness of the femur without deformity there is some swelling of both feet NEUROLOGICAL: Awake and alert. No obvious cranial nerve deficits. Motor grossly within normal limits. Normal speech. PSYCHIATRIC: Appropriate mood and affect; insight and judgment normal. Data Data Last Documented VS Vital Signs Date Time Temp Pulse Resp B/P (MAP) Pulse Ox O2 Delivery O2 Flow Rate FiO2 12/19/17 17:26 99.8 116 26 116/68 (84) 96 Nasal Cannula 3.00 Orders Orders Sepsis Workup Initiated (12/19/17 ) Complete Blood Count With Diff (12/19/17 15:05) Comprehensive Metabolic Panel (12/19/17 15:05) Lactic Acid Sepsis Protocol (12/19/17 15:05) Chest, Single Ap (12/19/17 15:05) Blood Culture (12/19/17 15:05) Iv Access Insert/Monitor (12/19/17 15:05) Oxygen Administration (12/19/17 15:05) Oximetry (12/19/17 15:05) Blood Glucose (12/19/17 15:05) Femur (Ap & Lat/2vws) (12/19/17 15:25) Sodium Chlor 0.9% 1000 Ml Inj (Ns 1000 M (12/19/17 15:45) Cefepime Inj (Maxipime Inj) (12/19/17 15:45) Ondansetron Inj (Zofran Inj) (12/19/17 16:45) Morphine Inj (Morphine Inj) (12/19/17 16:45) Urinalysis - C+S If Indicated (12/19/17 17:00) Sodium Chlor 0.9% 1000 Ml Inj (Ns 1000 M (12/19/17 17:15) Albuterol-Ipratropium Neb (Duoneb Neb) (12/19/17 17:15) Urine Culture (12/19/17 17:19) Labs Laboratory Tests Test 12/19/17 16:30 12/19/17 17:19 White Blood Count 23.6 TH/MM3 Red Blood Count 3.31 MIL/MM3 Hemoglobin 10.7 GM/DL Hematocrit 30.7 % Mean Corpuscular Volume 92.7 FL Mean Corpuscular Hemoglobin 32.3 PG Mean Corpuscular Hemoglobin Concent 34.9 % Red Cell Distribution Width 16.6 % Platelet Count 110 TH/MM3 Mean Platelet Volume 7.9 FL Neutrophils (%) (Auto) 93.3 % Lymphocytes (%) (Auto) 2.3 % Monocytes (%) (Auto) 4.0 % Eosinophils (%) (Auto) 0.1 % Basophils (%) (Auto) 0.3 % Neutrophils # (Auto) 22.1 TH/MM3 Lymphocytes # (Auto) 0.5 TH/MM3 Monocytes # (Auto) 0.9 TH/MM3 Eosinophils # (Auto) 0.0 TH/MM3 Basophils # (Auto) 0.1 TH/MM3 CBC Comment DIFF FINAL Differential Comment Blood Urea Nitrogen 13 MG/DL Creatinine 0.43 MG/DL Random Glucose 88 MG/DL Total Protein 6.1 GM/DL Albumin 2.7 GM/DL Calcium Level 8.0 MG/DL Alkaline Phosphatase 286 U/L Aspartate Amino Transf (AST/SGOT) 23 U/L Alanine Aminotransferase (ALT/SGPT) 35 U/L Total Bilirubin 0.4 MG/DL Sodium Level 134 MEQ/L Potassium Level 4.0 MEQ/L Chloride Level 101 MEQ/L Carbon Dioxide Level 26.6 MEQ/L Anion Gap 6 MEQ/L Estimat Glomerular Filtration Rate 152 ML/MIN Lactic Acid Level 0.7 mmol/L Urine Color YELLOW Urine Turbidity SL CLOUDY Urine pH 7.5 Urine Specific [place] 1.015 Urine Protein 100 mg/dL Urine Glucose (UA) NEG mg/dL Urine Ketones NEG mg/dL Urine Occult Blood LARGE Urine Nitrite NEG Urine Bilirubin NEG Urine Urobilinogen 0.2 MG/DL Urine Leukocyte Esterase SMALL Urine RBC 50-99 /hpf Urine WBC 15-19 /hpf Urine WBC Clumps FEW Urine Squamous Epithelial Cells 0-5 /hpf Microscopic Urinalysis Comment CULTURE INDICATED MDM Medical Decision Making Medical Screen Exam Complete: Yes Emergency Medical Condition: Yes Medical Record Reviewed: Yes Differential Diagnosis Differential includes sepsis, UTI, Narrative Course Chest x-ray shows an emphysematous bleb in the left lung which is been noted previously. Her hemoglobin is 10.7 with a white count of 23,000. Her BUN is 13 with creatinine of 0.43. Urinalysis shows 15-19 white cells. X-ray of the femur was obtained. There appears to be a lytic lesion in the mid femur does appear to be a crack in the cortex at the site of the lesion. Diagnoses UTI, sepsis, pathologic fracture femur. Patient will be transferred to [facility] as she will probably need radiation consult and orthopedic consult Diagnosis Primary Impression: Sepsis secondary to UTI Additional Impression: Pathological fracture, left femur, initial encounter for fracture Esteban Mckenzie MD December 19, 2017 15:30
[2017-12-19] MEDS ORDERED: MEGE40TA PO (15:34)
[2017-12-19] MEDS ORDERED: SERT25TA83 PO (15:34)
[2017-12-19] MEDS ORDERED: PANT20 PO (15:34)
[2017-12-19] MEDS ORDERED: LORA-392 PO (15:34)
[2017-12-19] MEDS ORDERED: CEFEPIME INJ 2,000 MG in SODIUM CHLORIDE 0.9% INJ 100 ML IV ONE (15:45)
[2017-12-19] MEDS ORDERED: SODIUM CHLOR 0.9% 1000 ML INJ 1,000 ML IV ONE ×2 (15:45→17:15)
--- NOTE | 2017-12-19 16:01 | RADRPT ---
EXAM DATE: 12/19/2017 3:39 PM EDT AGE/SEX: 57 years / Female INDICATIONS: Fever today. CLINICAL DATA: This is the patient's initial encounter. Patient reports that signs and symptoms have been present for 1 day and indicates a pain score of 0/10. MEDICAL/SURGICAL HISTORY: . Uterine cancer mets to neck. Chemotherapy. . Infusaport. COMPARISON: [facility], CHEST PA & LAT, 04/10/2017. . FINDINGS: The exam demonstrates a large emphysematous bleb which occupies the majority of the left upper lobe. This is similar in appearance to the prior examination dated 09/07/2017. There are interstitial fibrot ic changes throughout the pulmonary parenchyma. There is an [id number] in place on the right. The heart and mediastinal contours are within normal limits. CONCLUSION: 1. Large emphysematous bleb involving the left lung apex. This is unchanged from previous. 2. Chronic interstitial changes throughout the pulmonary parenchyma. 3. [id number] in good position. Electronically signed by: Pablo Ornelas MD 12/19/2017 3:59 PM EDT
[2017-12-19 16:40] LABS: AUTOMATED NEUTROPHIL # 22.1 TH/MM3 (1.8-7.7); BASOPHIL # 0.1 TH/MM3 (0-0.2); BASOPHIL % 0.3 % (0.0-2.0); EOSINOPHIL % 0.1 % (0.0-4.0); HEMATOCRIT 30.7 % (35.0-46.0); HEMOGLOBIN 10.7 GM/DL (11.6-15.3); LYMPH % 2.3 % (9.0-44.0); LYMPHOCYTE # 0.5 TH/MM3 (1.0-4.8); MEAN CELL VOLUME 92.7 FL (80.0-100.0); MEAN CORPUSCULAR HEMOGLOBIN 32.3 PG (27.0-34.0); MEAN CORPUSCULAR HGB CONC 34.9 % (32.0-36.0); MEAN PLATELET VOLUME 7.9 FL (7.0-11.0); MONOCYTE # 0.9 TH/MM3 (0-0.9); NEUT % 93.3 % (16.0-70.0); PLATELET COUNT 110 TH/MM3 (150-450); RED BLOOD COUNT 3.31 MIL/MM3 (4.00-5.30); RED CELL DISTRIBUTION WIDTH 16.6 % (11.6-17.2); WHITE BLOOD COUNT 23.6 TH/MM3 (4.0-11.0)
[2017-12-19] MEDS ORDERED: MORPHINE SULFATE 8 MG/ML INJ IV PUSH ONE ×2 (16:45→18:45)
[2017-12-19] MEDS ORDERED: ONDANSETRON HCL 4 MG/2 ML VIAL IV PUSH ONE ×2 (16:45→18:45)
[2017-12-19 16:48] LABS: CHLORIDE 101 MEQ/L (98-107); SODIUM (NA) 134 MEQ/L (136-145)
[2017-12-19 16:53] LABS: ALBUMIN 2.7 GM/DL (3.4-5.0); BICARBONATE 26.6 MEQ/L (21.0-32.0); BLOOD UREA NITROGEN 13 MG/DL (7-18); GLUCOSE,RANDOM 88 MG/DL (74-106)
[2017-12-19 16:56] LABS: ALT (GPT) 35 U/L (10-53); AST (GOT) 23 U/L (15-37); CREATININE 0.43 MG/DL (0.50-1.00); GLOMERULAR FILTRATION RATE 152 ML/MIN (>89)
[2017-12-19 16:57] LABS: TOTAL BILIRUBIN ADULT 0.4 MG/DL (0.2-1.0); TOTAL PROTEIN 6.1 GM/DL (6.4-8.2)
[2017-12-19 16:59] LABS: ALKALINE PHOSPHATASE 286 U/L (45-117)
[2017-12-19] MEDS ORDERED: RESP: ALBUTEROL 2.5 MG/IPRATROPIUM 0.5 MG NEB (SCH) NEB ONE (17:15)
[2017-12-19 17:27] LABS: BILIRUBIN, URINE NEG (NEG); BLOOD, URINE LARGE (NEG); GLUCOSE,URINE NEG (NEG); KETONE, URINE NEG (NEG); NITRITE,URINE NEG (NEG); PH, URINE 7.5 (5.0-8.5); URINE COLOR YELLOW (YELLW/STRAW); URINE LEUKOCYTE ESTERASE SMALL (NEG)
[2017-12-19 17:31] LABS: WHITE BLOOD CELL CLUMPS FEW
[2017-12-19 17:32] LABS: SQUAMOUS EPITHELIAL CELL URINE 0-5 /hpf (0-5)
[2017-12-19 17:33] LABS: WBC, URINE 15-19 /hpf (0-5)
--- NOTE | 2017-12-19 17:50 | RADRPT ---
EXAM DATE: 12/19/2017 5:29 PM EDT AGE/SEX: 57 years / Female INDICATIONS: Left leg pain for a week. No injury. CLINICAL DATA: This is the patient's initial encounter. Patient reports that signs and symptoms have been present for 1 week and indicates a pain score of 10/10. MEDICAL/SURGICAL HISTORY: . Uterine cancer with mets to neck. None. COMPARISON: No prior [facility] exams available for comparison. FINDINGS: 3.8 cm lytic lesion left mid femur with pathological fracture suspicious for metastatic disease. Bone density normal. Near-anatomic alignment. CONCLUSION: Lytic lesion as above suspicious for metastatic disease. Electronically signed by: Yan Ornelas MD 12/19/2017 5:49 PM EDT
[2017-12-19] MEDS ORDERED: BISACODYL 10 MG SUPP RECTAL PRN (18:15)
[2017-12-19] MEDS ORDERED: LACTULOSE SYRUP 20 GM/30 ML CUP PO PRN (18:15)
[2017-12-19] MEDS ORDERED: SENNOSIDES 8.6 MG TAB PO PRN (18:15)
[2017-12-19] MEDS ORDERED: MORPHINE SULFATE 2 MG/ML SYRINGE IV PUSH PRN (18:15)
[2017-12-19] MEDS ORDERED: NALOXONE HCL 0.4 MG/ML AMP IV PUSH PRN (18:15)
[2017-12-19] MEDS ORDERED: ACETAMINOPHEN 325 MG TAB PO PRN ×2 (18:15)
[2017-12-19] MEDS ORDERED: MAGNESIUM HYDROXIDE SUSP 30 ML CUP PO PRN (18:15)
[2017-12-19] MEDS ORDERED: ACETAMINOPHEN/HYDROcodone 325 MG/5 MG TAB PO PRN (18:15)
[2017-12-19] MEDS ORDERED: ONDANSETRON HCL 4 MG/2 ML VIAL IVP PRN (18:15)
[2017-12-19] MEDS: SODIUM CHLORIDE 0.9% FLUSH 10 ML FLUSH IV FLUSH SCH (20:57)
[2017-12-19] MEDS: DOCUSATE SODIUM 50 MG/SENNA 8.6 MG TAB PO SCH (20:57)
[2017-12-19] MEDS: RESP: ALBUTEROL 2.5 MG/IPRATROPIUM 0.5 MG NEB (PRN) NEB (21:18)
[2017-12-20] VITALS (7 sets, daily range): BP systolic 100–116; BP diastolic 65–76; PULSE 87–102; RESP 16–24; TEMP 98.3–99; O2SAT 94–98
[2017-12-20] MEDS: ACETAMINOPHEN/HYDROcodone 325 MG/7.5 MG TAB PO PRN ×4 (00:22→20:56)
[2017-12-20] MEDS: MORPHINE SULFATE 4 MG/ML INJ IV PUSH PRN ×3 (01:19→08:20)
[2017-12-20] MEDS: CEFEPIME INJ 2,000 MG in SODIUM CHLORIDE 0.9% INJ 100 ML IV SCH ×4 (01:20→23:27)
[2017-12-20] MEDS: SODIUM CHLORIDE 0.9% FLUSH 10 ML FLUSH IV FLUSH PRN ×2 (02:24→05:29)
[2017-12-20] MEDS ORDERED: SODIUM CHLORIDE 0.9% FLUSH 10 ML FLUSH IV FLUSH PRN (03:45)
[2017-12-20 05:06] LABS: AUTOMATED NEUTROPHIL # 15.8 TH/MM3 (1.8-7.7); BASOPHIL % 0.2 % (0.0-2.0); HEMATOCRIT 32.9 % (35.0-46.0); HEMOGLOBIN 10.8 GM/DL (11.6-15.3); LYMPH % 3.9 % (9.0-44.0); LYMPHOCYTE # 0.7 TH/MM3 (1.0-4.8); MEAN CELL VOLUME 94.1 FL (80.0-100.0); MEAN CORPUSCULAR HEMOGLOBIN 30.9 PG (27.0-34.0); MEAN CORPUSCULAR HGB CONC 32.8 % (32.0-36.0); MEAN PLATELET VOLUME 7.9 FL (7.0-11.0); MONO % 8.2 % (0.0-8.0); MONOCYTE # 1.5 TH/MM3 (0-0.9); NEUT % 87.7 % (16.0-70.0); PLATELET COUNT 106 TH/MM3 (150-450); RED BLOOD COUNT 3.49 MIL/MM3 (4.00-5.30); RED CELL DISTRIBUTION WIDTH 17.1 % (11.6-17.2)
[2017-12-20 05:37] LABS: ALBUMIN 2.6 GM/DL (3.4-5.0); BICARBONATE 27.9 MEQ/L (21.0-32.0); BLOOD UREA NITROGEN 10 MG/DL (7-18); CALCIUM 8.8 MG/DL (8.5-10.1); CHLORIDE 101 MEQ/L (98-107); CREATININE 0.49 MG/DL (0.50-1.00); GLOMERULAR FILTRATION RATE 131 ML/MIN (>89); GLUCOSE,RANDOM 73 MG/DL (74-106); SODIUM (NA) 137 MEQ/L (136-145)
[2017-12-20 05:38] LABS: ALT (GPT) 33 U/L (10-53)
[2017-12-20 05:40] LABS: ALKALINE PHOSPHATASE 272 U/L (45-117); AST (GOT) 25 U/L (15-37); TOTAL BILIRUBIN ADULT 0.5 MG/DL (0.2-1.0); TOTAL PROTEIN 6.3 GM/DL (6.4-8.2)
[2017-12-20 07:35] LABS: BANDS 14 % (0-6); LYMPHOCYTES 4 % (9-44); METAMYELOCYTES 1 % (0-1); MONOCYTES 7 % (0-8); POLYS (SEG NEUTROPHILS) 74 % (16-70)
[2017-12-20 07:36] LABS: TOXIC GRANULATION 2+ (NORMAL)
[2017-12-20] MEDS: RESP: ALBUTEROL 2.5 MG/IPRATROPIUM 0.5 MG NEB (PRN) NEB ×2 (07:59→16:25)
[2017-12-20] MEDS: DOCUSATE SODIUM 50 MG/SENNA 8.6 MG TAB PO SCH ×2 (08:19→20:56)
[2017-12-20] MEDS: SODIUM CHLORIDE 0.9% FLUSH 10 ML FLUSH IV FLUSH SCH ×2 (08:28→20:57)
[2017-12-20] MEDS: MEGESTROL ACETATE 40 MG TAB PO SCH ×3 (09:00→20:56)
[2017-12-20] MEDS ORDERED: PILL SPLITTER OTHER PRN (09:15)
[2017-12-20] MEDS: PANTOPRAZOLE SOD 20 MG DELAYED RELEASE TAB PO SCH (11:01)
[2017-12-20] MEDS: SERTRALINE HCL 50 MG TAB PO SCH (11:01)
[2017-12-20] MEDS: MORPHINE SULFATE 60 MG CONTROLLED RELEASE TAB PO SCH ×2 (11:02→20:56)
[2017-12-20] MEDS ORDERED: NICOTINE 14 MG/24 HR PATCH T-DERMAL ONE (12:00)
--- NOTE | 2017-12-20 12:07 | HHI.HP ---
[facility] Carlos Enrique Saleh MD Admission Diagnosis SEPSIS, PATHOLOGIC FX LEFT FEMUR Diagnoses: (1) Tobacco abuse Diagnosis: Secondary (2) Pathological fracture, left femur, initial encounter for fracture Diagnosis: Principal (3) Sepsis secondary to UTI Diagnosis: Principal (4) UTI (urinary tract infection) Diagnosis: Principal (5) Hydronephrosis, right Diagnosis: Secondary (6) Malnutrition Diagnosis: Secondary (7) Uterine cancer Diagnosis: Principal Chief Complaint: Fevers Travel History International Travel<30 Days: No Contact w/Intl Traveler <30 Da: No Traveled to Known Affected Are: No History of Present Illness Patient is a 57-year-old female initially presented to [place] emergency department with complaint of fever. Patient has a history of stage IV uterine cancer. Patient is seeing Dr. Clifton of gynecology oncology. She is previously had chemo and radiation. Recently had chemotherapy. Last chemotherapy was about a week and half ago. Previously had blood transfusion 2 days ago. Became short of breath for several months has been on home oxygen since last March she still smokes at least a half a pack if not more a day of cigarettes. Has severe pain in her left leg for several days and has not been able to walk on left leg due to pain. Having pain in her left femur. Also noted to have some swelling in her right foot for the past day or so. Was found to have a left femur pathological fracture. Has uterine cancer with metastasis to her neck believe Review of Systems Constitutional: COMPLAINS OF: Fatigue, Fever, Weight loss, Chills, Change in appetite, DENIES: Diaphoretic episodes, Weight gain, Dizziness, Night Sweats Endocrine: DENIES: Abnorml menstrual pattern, Heat/cold intolerance, Polydipsia , Polyuria, Polyphagia Eyes: DENIES: Blurred vision, Diplopia, Eye inflammation, Eye pain, Vision loss , Photosensitivity, Double Vision Ears, nose, mouth, throat: DENIES: Tinnitus, Hearing loss, Vertigo, Nasal discharge, Oral lesions, Throat pain, Hoarseness, Odynophagia Respiratory: DENIES: Apneas, Cough, Snoring, Wheezing, Hemoptysis, Sputum production, Shortness of breath Cardiovascular: COMPLAINS OF: Lower Extremity Edema, DENIES: Chest pain, Palpitations, Syncope, Dyspnea on Exertion, PND, Orthopnea, Claudication Gastrointestinal: DENIES: Abdominal pain, Black stools, Bloody stools, Constipation, Diarrhea, Nausea, Vomiting, Difficulty Swallowing Genitourinary: COMPLAINS OF: Abnormal vaginal bleeding, DENIES: Dysmenorrhea, Dyspareunia, Sexual dysfunction, Urinary frequency, Urinary incontinence, Vaginal discharge Musculoskeletal: COMPLAINS OF: Joint pain, Muscle aches, Back pain, Neck pain, DENIES: Stiffness, Joint Swelling Integumentary: DENIES: Abnormal pigmentation, Pruritus, Rash, Nail changes, Breast masses, Breast skin changes Hematologic/lymphatic: DENIES: Bruising, Lymphadenopathy Immunologic/allergic: DENIES: Eczema, Urticaria Neurologic: COMPLAINS OF: Abnormal gait, Localized weakness, Poor Balance, DENIES: Headache, Paresthesias, Seizures, Speech Problems, Tremor Psychiatric: COMPLAINS OF: Depression, DENIES: Anxiety, Confusion, Mood changes , Hallucinations, Agitation, Suicidal Ideation, Homicidal Ideation, Delusions Except as stated in HPI: all other systems reviewed are Neg Past Family Social History Past Medical History COPD and tobacco abuse Uterine cancer History of D&C Found to have UTI Fracture of left femur Uterine cancer with bone metastasis history of surgical removal of a straight pin in the right foot as a child Past Surgical History Oral surgery Tonsillectomy Port placement Reported Medications Reported Meds & Active Scripts Active Proair Hfa 8.5 GM Inh (Albuterol Sulfate) 90 Mcg/Act Aer 2 Puff INH Q4-6H PRN 108 mcg/actuation Zofran Odt (Ondansetron Odt) 4 Mg Tab 4 Mg SL Q6HR PRN Ventolin Hfa 18 GM Inh (Albuterol Sulfate) 90 Mcg/Act Aer 2 Puff INH Q4H PRN Oxycodone (Oxycodone HCl) 5 Mg Tab 5 Mg PO Q4H PRN Morphine ER (Morphine Sulfate) 60 Mg Tab 60 Mg PO Q12HR Oxygen (O2) Device Liter SHEYLA.CANULA CONTINUOUS Oxygen Concentrator Portable Gaseous 2 L/min via Nasal Canula Continuous For 99 months Reported Protonix (Pantoprazole Sodium) 20 Mg Tab 20 Mg PO DAILY Ativan (Lorazepam) 0.5 Mg Tab 0.5 Mg PO DAILY PRN Megestrol (Megestrol Acetate) 40 Mg Tab 40 Mg PO QID Sertraline (Sertraline HCl) 25 Mg Tab 25 Mg PO DAILY Allergies: Coded Allergies: No Known Allergies (Verified Allergy, Unknown, 12/19/17) Uncoded Allergies: ADHESIVES (Allergy, Unknown, rash, 03/14/17) Active Ordered Medications Current Medications Sodium Chloride 1,000 ml @ 999 mls/hr BOLUS ONCE IV Last administered on 12/19at 15:44; Start 12/19/17 at 15:45; Stop 12/19/17 at 16:45; Status DC Cefepime HCl 2000 mg/Sodium Chloride 100 ml @ 200 mls/hr ONCE ONCE IV Last administered on 12/19/17at 16:39; Start 12/19/17 at 15:45; Stop 12/19/17 at 16:14 ; Status DC Ondansetron HCl (Zofran Inj) 4 mg ONCE ONCE IV PUSH Last administered on at 16:47; Start 12/19/17 at 16:45; Stop 12/19/17 at 16:46; Status DC Morphine Sulfate (Morphine Inj) 10 mg ONCE ONCE IV PUSH Last administered on at 16:48; Start 12/19/17 at 16:45; Stop 12/19/17 at 16:46; Status DC Sodium Chloride 1,000 ml @ 999 mls/hr BOLUS ONCE IV Last administered on 12/19at 17:44; Start 12/19/17 at 17:15; Stop 12/19/17 at 18:15; Status DC Albuterol/ Ipratropium (Duoneb Neb) 1 ampule ONCE ONCE NEB Last administered on 12/19/17at 17:25; Start 12/19/17 at 17:15; Stop 12/19/17 at 17:16; Status DC Sodium Chloride (NS Flush) 2 ml UNSCH PRN IV FLUSH FLUSH AFTER USING IV ACCESS Last administered on 12/20/17at 05:29; Start 12/19/17 at 18:15 Sodium Chloride (NS Flush) 2 ml BID IV FLUSH Last administered on 12/20/17at 08: 28; Start 12/19/17 at 21:00 Acetaminophen (Tylenol) 650 mg Q4H PRN PO TEMP > 100.4; Start 12/19/17 at 18:15 Ondansetron HCl (Zofran Inj) 4 mg Q6H PRN IVP NAUSEA OR VOMITING Last administered on 12/20/17at 04:44; Start 12/19/17 at 18:15; Stop 12/20/17 at 09:02 ; Status DC Acetaminophen (Tylenol) 650 mg Q6H PRN PO PAIN SCALE 1 TO 2; Start 12/19/17 at 18:15 Acetaminophen/ Hydrocodone Bitart ([place] 5-325 Mg) 1 tab Q4H PRN PO PAIN SCALE 3 TO 5; Start 12/19/17 at 18:15 Acetaminophen/ Hydrocodone Bitart ([place] 7.5-325 Mg) 1 tab Q4H PRN PO PAIN SCALE 6 TO 10 Last administered on 12/20/17at 04:42; Start 12/19/17 at 18:15 Morphine Sulfate (Morphine Inj) 2 mg Q3H PRN IV PUSH BREAKTHROUGH PAIN Last administered on 12/19/17at 22:26; Start 12/19/17 at 18:15; Stop 12/20/17 at 01:09 ; Status DC Naloxone HCl (Narcan Inj) 0.4 mg UNSCH PRN IV PUSH SEE LABEL COMMENTS; Start at 18:15 Senna/Docusate Sodium (Sharon-Colace) 1 tab BID PO Last administered on at 08:19; Start 12/19/17 at 21:00 Magnesium Hydroxide (Milk Of Magnesia Liq) 30 ml Q12H PRN PO Mild constipation Last administered on 12/20/17at 08:19; Start 12/19/17 at 18:15 Sennosides (Senokot) 17.2 mg Q12H PRN PO Moderate constipation; Start 12/19/17 at 18:15 Bisacodyl (Dulcolax Supp) 10 mg DAILY PRN RECTAL SEVERE CONSITIPATION; Start at 18:15 Lactulose (Lactulose Liq) 30 ml DAILY PRN PO SEVERE CONSITIPATION; Start at 18:15 Cefepime HCl 2000 mg/Sodium Chloride 100 ml @ 200 mls/hr Q8H IV Last administered on 12/20/17at 08:20; Start 12/20/17 at 00:00 Albuterol/ Ipratropium (Duoneb Neb) 1 ampule Q2HR NEB PRN NEB SOB/WHEEZING Last administered on 12/20/17at 07:59; Start 12/19/17 at 18:15 Ondansetron HCl (Zofran Inj) 4 mg ONCE ONCE IV PUSH Last administered on at 18:42; Start 12/19/17 at 18:45; Stop 12/19/17 at 18:46; Status DC Morphine Sulfate (Morphine Inj) 10 mg ONCE ONCE IV PUSH Last administered on at 18:42; Start 12/19/17 at 18:45; Stop 12/19/17 at 18:46; Status DC Morphine Sulfate (Morphine Inj) 2 mg Q3H PRN IV PUSH BREAKTHROUGH PAIN Last administered on 12/20/17at 08:20; Start 12/20/17 at 01:15 Sodium Chloride (NS Flush) 5 ml UNSCH PRN IV FLUSH SEE PROTOCOL TABLE; Start at 03:45 Heparin Sodium (Porcine) (Heparin Central Flush) 250 units UNSCH PRN IV FLUSH SEE PROTOCOL TABLE Last administered on 12/20/17at 04:55; Start 12/20/17 at 03:45 Heparin Sodium (Porcine) (Heparin Central Flush) 500 units UNSCH IV FLUSH ; Start 12/20/17 at 03:45 Lorazepam (Ativan) 0.5 mg DAILY PRN PO ANXIETY AND/OR AGITATION; Start at 09:00 Megestrol Acetate (Megace) 40 mg QID PO ; Start 12/20/17 at 09:00 Morphine Sulfate (Oramorph Sr) 60 mg Q12HR PO Last administered on 12/20/17at 11 :02; Start 12/20/17 at 09:00 Ondansetron HCl (Zofran Odt) 4 mg Q6HR PRN SL Nausea/Vomiting; Start 12/20/17 at 09:00 Pantoprazole Sodium (Protonix) 20 mg DAILY PO Last administered on 12/20/17at 11 :01; Start 12/20/17 at 09:00 Sertraline HCl (Zoloft) 25 mg DAILY PO Last administered on 12/20/17at 11:01; Start 12/20/17 at 09:00 Albuterol/ Ipratropium (Duoneb Neb) 1 ampule Q4HR NEB PRN NEB SOB/COUGH; Start 12/20/17 at 09:00 Clonidine (Catapres) 0.1 mg Q4H PRN PO SBP>160, DBP>90; Start 12/20/17 at 09:00 Miscellaneous (Pill Splitter) 1 ea UNSCH PRN OTHER SEE LABEL COMMENTS; Start at 09:15 Family History History of drug dependence in her brother History of asthma in her mother Tobacco abuse in the family Social History Still actively smoking at least a half a pack if not more daily Denies any illicits Denies any alcohol abuse Physical Exam Vital Signs Vital Signs Date Time Temp Pulse Resp B/P (MAP) Pulse Ox O2 Delivery O2 Flow Rate FiO2 12/20/17 11:04 98.8 102 24 116/70 (85) 98 12/20/17 08:01 99.0 96 24 104/65 (78) 96 12/20/17 08:00 94 Nasal Cannula 3.00 12/20/17 04:36 98.8 100 20 103/67 (79) 97 12/19/17 23:05 100.9 106 20 127/74 (91) 97 12/19/17 22:41 12/19/17 21:18 97 Nasal Cannula 4.00 12/19/17 20:59 101 22 103/72 (82) 95 Nasal Cannula 3.00 12/19/17 20:51 99 20 96/62 (73) 94 Nasal Cannula 3.00 12/19/17 18:37 99.0 108 22 103/63 (76) 98 Nasal Cannula 3.00 12/19/17 17:26 99.8 116 26 116/68 (84) 96 Nasal Cannula 3.00 12/19/17 17:26 99.8 128 26 116/68 (84) 98 Nasal Cannula 3.00 12/19/17 16:42 101.4 118 24 127/69 (88) 98 3.00 12/19/17 15:27 96 Nasal Cannula 3.00 12/19/17 15:27 127 96 Nasal Cannula 3.00 12/19/17 15:20 96 12/19/17 14:44 100.0 124 20 127/79 (95) 96 Physical Exam GENERAL: This is a quite cachectic thin malnourished patient in moderate distress due to her left femur SKIN: No rashes, ecchymoses or lesions. Cool and dry. HEAD: Atraumatic. Normocephalic. No temporal or scalp tenderness. EYES: Pupils equal round and reactive. Extraocular motions intact. No scleral icterus. No injection or drainage. ENT: Nose without bleeding, purulent drainage or septal hematoma. Throat without erythema, tonsillar hypertrophy or exudate. Uvula midline. Airway patent. NECK: Trachea midline. No JVD or lymphadenopathy. Supple, nontender, no meningeal signs. CARDIOVASCULAR: Regular rate and rhythm without murmurs, gallops, or rubs. S1- S2 no S3 or S4 RESPIRATORY: Clear to auscultation. Breath sounds equal bilaterally. No wheezes , rales, or rhonchi. GASTROINTESTINAL: Abdomen soft, non-tender, nondistended. No hepato-splenomegaly , or palpable masses. No guarding. MUSCULOSKELETAL: Extremities without clubbing, cyanosis, or edema. No joint tenderness, effusion, some edema in the right lower extremity. No calf tenderness. Negative Homans sign bilaterally. Decreased range of motion of left lower extremity NEUROLOGICAL: Awake and alert. Cranial nerves II through XII intact. Motor and sensory grossly within normal limits. 4 out of 5 muscle strength in all muscle groups. Normal speech. Insight and judgment is good Mood and behavior is appropriate has generalized weakness Laboratory Laboratory Tests Test 12/19/17 16:30 12/19/17 17:19 12/20/17 04:50 White Blood Count 23.6 18.0 Red Blood Count 3.31 3.49 Hemoglobin 10.7 10.8 Hematocrit 30.7 32.9 Mean Corpuscular Volume 92.7 94.1 Mean Corpuscular Hemoglobin 32.3 30.9 Mean Corpuscular Hemoglobin Concent 34.9 32.8 Red Cell Distribution Width 16.6 17.1 Platelet Count 110 106 Mean Platelet Volume 7.9 7.9 Neutrophils (%) (Auto) 93.3 87.7 Lymphocytes (%) (Auto) 2.3 3.9 Monocytes (%) (Auto) 4.0 8.2 Eosinophils (%) (Auto) 0.1 0.0 Basophils (%) (Auto) 0.3 0.2 Neutrophils # (Auto) 22.1 15.8 Lymphocytes # (Auto) 0.5 0.7 Monocytes # (Auto) 0.9 1.5 Eosinophils # (Auto) 0.0 0.0 Basophils # (Auto) 0.1 0.0 CBC Comment DIFF FINAL AUTO DIFF Differential Comment FINAL DIFF MANUAL Blood Urea Nitrogen 13 10 Creatinine 0.43 0.49 Random Glucose 88 73 Total Protein 6.1 6.3 Albumin 2.7 2.6 Calcium Level 8.0 8.8 Alkaline Phosphatase 286 272 Aspartate Amino Transf (AST/SGOT) 23 25 Alanine Aminotransferase (ALT/SGPT) 35 33 Total Bilirubin 0.4 0.5 Sodium Level 134 137 Potassium Level 4.0 3.9 Chloride Level 101 101 Carbon Dioxide Level 26.6 27.9 Anion Gap 6 8 Estimat Glomerular Filtration Rate 152 131 Lactic Acid Level 0.7 Urine Color YELLOW Urine Turbidity SL CLOUDY Urine pH 7.5 Urine Specific [place] 1.015 Urine Protein 100 Urine Glucose (UA) NEG Urine Ketones NEG Urine Occult Blood LARGE Urine Nitrite NEG Urine Bilirubin NEG Urine Urobilinogen 0.2 Urine Leukocyte Esterase SMALL Urine RBC 50-99 Urine WBC 15-19 Urine WBC [place] FEW Urine Squamous Epithelial Cells 0-5 Microscopic Urinalysis Comment CULTURE INDICATED Differential Total Cells Counted 100 Neutrophils % (Manual) 74 Band Neutrophils % 14 Lymphocytes % 4 Monocytes % 7 Neutrophils # (Manual) 16.0 Metamyelocytes 1 Toxic Granulation 2+ Platelet Estimate LOW Platelet Morphology Comment NORMAL Date/Time Source Procedure Growth Status 12/19/17 16:30 Blood Peripheral Aerobic Blood Culture - Preliminary NO GROWTH IN 1 DAY Resulted 12/19/17 16:30 Blood Peripheral Anaerobic Blood Culture - Preliminary NO GROWTH IN 1 DAY Resulted 12/19/17 17:19 Urine Clean Catch Urine Culture Pending Received Result Diagram: 12/20/17 0450 12/20/17 0450 Imaging Last Impressions Femur X-Ray 12/19/17 1525 Signed Impressions: CONCLUSION: Lytic lesion as above suspicious for metastatic disease. Chest X-Ray 12/19/17 1505 Signed Impressions: CONCLUSION: 1. Large emphysematous bleb involving the left lung apex. This is unchanged fr om previous. 2. Chronic interstitial changes throughout the pulmonary parenchyma. 3. [id number] in good position. Caprini VTE Risk Assessment Caprini VTE Risk Assessment: Mod/High Risk (score >= 2) Caprini Risk Assessment Model Point Value = 1 Point Value = 2 Point Value = 3 Point Value = 5 Age 41-60 Minor surgery BMI > 25 kg/m2 Swollen legs Varicose veins or History of unexplained or recurrent spontaneous Oral contraceptives or hormone replacement Sepsis (< 1 month) Serious lung disease, including pneumonia (< 1 month) Abnormal pulmonary function Acute myocardial infarction Congestive heart failure (< 1 month) History of inflammatory bowel disease Medical patient at bed rest Age 61-74 Arthroscopic surgery Major open surgery (> 45 min) Laparoscopic surgery (> 45 min) Malignancy Confined to bed (> 72 hours) Immobilizing plaster cast Central venous access Age >= 75 History of VTE Family history of VTE Factor V Leiden Prothrombin [id number] Lupus anticoagulant Anticardiolipin antibodies Elevated serum homocysteine Heparin-induced thrombocytopenia Other congenital or acquired thrombophilia Stroke (< 1 month) Elective arthroplasty Hip, pelvis, or leg fracture Acute spinal cord injury (< 1 month) Prophylaxis Regimen Total Risk Factor Score Risk Level Prophylaxis Regimen 0-1 Low Early ambulation 2 Moderate Order ONE of the following: *Sequential Compression Device (SCD) *Heparin 5000 units SQ BID 3-4 Higher Order ONE of the following medications: *Heparin 5000 units SQ TID *Enoxaparin/Lovenox 40 mg SQ daily (WT < 150 kg, CrCl > 30 mL/min) *Enoxaparin/Lovenox 30 mg SQ daily (WT < 150 kg, CrCl > 10-29 mL/min) *Enoxaparin/Lovenox 30 mg SQ BID (WT < 150 kg, CrCl > 30 mL/min) AND/OR *Sequential Compression Device (SCD) 5 or more Highest Order ONE of the following medications: *Heparin 5000 units SQ TID (Preferred with Epidurals) *Enoxaparin/Lovenox 40 mg SQ daily (WT < 150 kg, CrCl > 30 mL/min) *Enoxaparin/Lovenox 30 mg SQ daily (WT < 150 kg, CrCl > 10-29 mL/min) *Enoxaparin/Lovenox 30 mg SQ BID (WT < 150 kg, CrCl > 30 mL/min) AND *Sequential Compression Device (SCD) Assessment and Plan Assessment and Plan Sepsis due to urinary tract infection continue on current antibiotics is on cefepime we will add vancomycin with pharmacy to dose Sepsis due to urinary tract infection is on cefepime and will add vancomycin with pharmacy to dose Is Pathological left femur fracture with what appears to be a lytic lesion in the mid femur --orthopedics has been counseled and will take her to surgery tomorrow COPD with emphysematous bleb in the left lung chronic- DUONEBS AND MUCINEX AND INCENTIVE SPIROMETRY AND NICODERM 14MG Anemia due to recent chemotherapy Leukocytosis CONTINUE ANTIBIOTICS- UTERINE CARCINOMA- CONSULT DR CLIFTON MODERATE RISK FOR SURGERY DUE TO COPD AND SEPSIS AM LABS GUARDED PROGNOSIS Code Status FULL CODE Discussed Condition With RN AND PT AND FAMILY Physician Certification 2 Midnight Certification Type: Admission for Inpatient Services Order for Inpatient Services The services are ordered in accordance with Medicare regulations or non- Medicare payer requirements, as applicable. In the case of services not specified as inpatient-only, they are appropriately provided as inpatient services in accordance with the 2-midnight benchmark. Estimated LOS (days): 3 days is the estimated time the patient will need to remain in the hospital, assuming treatment plan goals are met and no additional complications. Post-Hospital Plan: Not yet determined Yan Chavez DO December 20, 2017 12:07
--- NOTE | 2017-12-20 15:59 | PD.CONS ---
History of Present Illness Service PRO SHOP ATTENDANT/ONC Consult Requested By Dr. 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 This was followed by radiation to the left subclavicular lymph nodes. Once she completed radiation she then started IV chemotherapy with Taxol and Carboplatin every 21 days with Neulasta stem cell support. She is has now completed 6 cycles of IV chemo as of December 08, 2017. Although initially she seems to respond to treatment, unfortunately recently her abdominal pain has worsened along with new onset of left leg pain for several days. She uses home oxygen but continues to smoke. She reports weakness, fevers and weight loss. She presented to [facility] for further evaluation. She was found to have a pathological fracture in her left femur and was transferred to the [facility] for orthopedic evaluation. She was also found to be feverish and have a UTI. Poultry Eviscerator/Onc was consulted for treatment recommendations. She was seen by Dr. Clifton and he placed order for radiation therapy for possible radiation to lytic lesion to femur. Orthopedics was also consulted and she is having a nino placed to left femur, with bx of lesion. Review of Systems Constitutional: COMPLAINS OF: Fatigue, Fever, Weight loss, Change in appetite Gastrointestinal: COMPLAINS OF: Abdominal pain Musculoskeletal: COMPLAINS OF: Joint pain, Muscle aches left leg pain and foot swelling Past Family Social History Allergies: Coded Allergies: No Known Allergies (Verified Allergy, Unknown, 12/19/17) Uncoded Allergies: ADHESIVES (Allergy, Unknown, rash, 03/14/17) Past Medical History COPD with oxygen use at home carcinosarcoma of uterus stage IV Past Surgical History oral surgery tonsillectomy port placement D&C Reported Medications per EMR Active Ordered Medications Current Medications Sodium Chloride 1,000 ml @ 999 mls/hr BOLUS ONCE IV Last administered on 12/19at 15:44; Start 12/19/17 at 15:45; Stop 12/19/17 at 16:45; Status DC Cefepime HCl 2000 mg/Sodium Chloride 100 ml @ 200 mls/hr ONCE ONCE IV Last administered on 12/19/17at 16:39; Start 12/19/17 at 15:45; Stop 12/19/17 at 16:14 ; Status DC Ondansetron HCl (Zofran Inj) 4 mg ONCE ONCE IV PUSH Last administered on at 16:47; Start 12/19/17 at 16:45; Stop 12/19/17 at 16:46; Status DC Morphine Sulfate (Morphine Inj) 10 mg ONCE ONCE IV PUSH Last administered on at 16:48; Start 12/19/17 at 16:45; Stop 12/19/17 at 16:46; Status DC Sodium Chloride 1,000 ml @ 999 mls/hr BOLUS ONCE IV Last administered on 12/19at 17:44; Start 12/19/17 at 17:15; Stop 12/19/17 at 18:15; Status DC Albuterol/ Ipratropium (Duoneb Neb) 1 ampule ONCE ONCE NEB Last administered on 12/19/17at 17:25; Start 12/19/17 at 17:15; Stop 12/19/17 at 17:16; Status DC Sodium Chloride (NS Flush) 2 ml UNSCH PRN IV FLUSH FLUSH AFTER USING IV ACCESS Last administered on 12/20/17at 05:29; Start 12/19/17 at 18:15 Sodium Chloride (NS Flush) 2 ml BID IV FLUSH Last administered on 12/20/17at 08: 28; Start 12/19/17 at 21:00 Acetaminophen (Tylenol) 650 mg Q4H PRN PO TEMP > 100.4; Start 12/19/17 at 18:15 Ondansetron HCl (Zofran Inj) 4 mg Q6H PRN IVP NAUSEA OR VOMITING Last administered on 12/20/17at 04:44; Start 12/19/17 at 18:15; Stop 12/20/17 at 09:02 ; Status DC Acetaminophen (Tylenol) 650 mg Q6H PRN PO PAIN SCALE 1 TO 2; Start 12/19/17 at 18:15 Acetaminophen/ Hydrocodone Bitart ([place] 5-325 Mg) 1 tab Q4H PRN PO PAIN SCALE 3 TO 5; Start 12/19/17 at 18:15 Acetaminophen/ Hydrocodone Bitart ([place] 7.5-325 Mg) 1 tab Q4H PRN PO PAIN SCALE 6 TO 10 Last administered on 12/20/17at 14:50; Start 12/19/17 at 18:15 Morphine Sulfate (Morphine Inj) 2 mg Q3H PRN IV PUSH BREAKTHROUGH PAIN Last administered on 12/19/17at 22:26; Start 12/19/17 at 18:15; Stop 12/20/17 at 01:09 ; Status DC Naloxone HCl (Narcan Inj) 0.4 mg UNSCH PRN IV PUSH SEE LABEL COMMENTS; Start at 18:15 Senna/Docusate Sodium ([place]-Colace) 1 tab BID PO Last administered on 08:19; Start 12/19/17 at 21:00 Magnesium Hydroxide (Milk Of Magnesia Liq) 30 ml Q12H PRN PO Mild constipation Last administered on 12/20/17 08:19; Start 12/19/17 at 18:15 Sennosides (Senokot) 17.2 mg Q12H PRN PO Moderate constipation; Start 12/19/17 at 18:15 Bisacodyl (Dulcolax Supp) 10 mg DAILY PRN RECTAL SEVERE CONSITIPATION; Start at 18:15 Lactulose (Lactulose Liq) 30 ml DAILY PRN PO SEVERE CONSITIPATION; Start at 18:15 Cefepime HCl 2000 mg/Sodium Chloride 100 ml @ 200 mls/hr Q8H IV Last administered on 12/20/17at 08:20; Start 12/20/17 at 00:00 Albuterol/ Ipratropium (Duoneb Neb) 1 ampule Q2HR NEB PRN NEB SOB/WHEEZING Last administered on 12/20/17at 07:59; Start 12/19/17 at 18:15 Ondansetron HCl (Zofran Inj) 4 mg ONCE ONCE IV PUSH Last administered on at 18:42; Start 12/19/17 at 18:45; Stop 12/19/17 at 18:46; Status DC Morphine Sulfate (Morphine Inj) 10 mg ONCE ONCE IV PUSH Last administered on at 18:42; Start 12/19/17 at 18:45; Stop 12/19/17 at 18:46; Status DC Morphine Sulfate (Morphine Inj) 2 mg Q3H PRN IV PUSH BREAKTHROUGH PAIN Last administered on 12/20/17at 08:20; Start 12/20/17 at 01:15 Sodium Chloride (NS Flush) 5 ml UNSCH PRN IV FLUSH SEE PROTOCOL TABLE; Start at 03:45 Heparin Sodium (Porcine) (Heparin Central Flush) 250 units UNSCH PRN IV FLUSH SEE PROTOCOL TABLE Last administered on 12/20/17at 04:55; Start 12/20/17 at 03:45 Heparin Sodium (Porcine) (Heparin Central Flush) 500 units UNSCH IV FLUSH ; Start 12/20/17 at 03:45 Lorazepam (Ativan) 0.5 mg DAILY PRN PO ANXIETY AND/OR AGITATION; Start at 09:00 Megestrol Acetate (Megace) 40 mg QID PO ; Start 12/20/17 at 09:00 Morphine Sulfate (Oramorph Sr) 60 mg Q12HR PO Last administered on 12/20/17at 11 :02; Start 12/20/17 at 09:00 Ondansetron HCl (Zofran Odt) 4 mg Q6HR PRN SL Nausea/Vomiting; Start 12/20/17 at 09:00 Pantoprazole Sodium (Protonix) 20 mg DAILY PO Last administered on 12/20/17at 11 :01; Start 12/20/17 at 09:00 Sertraline HCl (Zoloft) 25 mg DAILY PO Last administered on 12/20/17at 11:01; Start 12/20/17 at 09:00 Albuterol/ Ipratropium (Duoneb Neb) 1 ampule Q4HR NEB PRN NEB SOB/COUGH; Start 12/20/17 at 09:00 Clonidine (Catapres) 0.1 mg Q4H PRN PO SBP>160, DBP>90; Start 12/20/17 at 09:00 Miscellaneous (Pill Splitter) 1 ea UNSCH PRN OTHER SEE LABEL COMMENTS; Start at 09:15 Nicotine (Habitrol 14 Mg Patch.24 Hr) 1 patch ONCE ONCE T-DERMAL ; Start at 12:00; Stop 12/20/17 at 12:03; Status DC Nicotine (Habitrol 14 Mg Patch.24 Hr) 1 patch DAILY T-DERMAL ; Start 12/21/17 at 09:00 Miscellaneous Information 1 DAILY T-DERMAL ; Start 12/21/17 at 09:00 Ketorolac Tromethamine (Toradol Inj) 15 mg Q6HR IM ; Start 12/20/17 at 18:00; Stop 12/23/17 at 12:00 Family History noncontributory Social History active smoker has a sister that lives in [place] occasional alcohol Physical Exam Vital Signs Vital Signs Date Time Temp Pulse Resp B/P (MAP) Pulse Ox O2 Delivery O2 Flow Rate FiO2 12/20/17 11:04 98.8 102 24 116/70 (85) 98 12/20/17 08:01 99.0 96 24 104/65 (78) 96 12/20/17 08:00 94 Nasal Cannula 3.00 12/20/17 04:36 98.8 100 20 103/67 (79) 97 12/19/17 23:05 100.9 106 20 127/74 (91) 97 12/19/17 22:41 12/19/17 21:18 97 Nasal Cannula 4.00 12/19/17 20:59 101 22 103/72 (82) 95 Nasal Cannula 3.00 12/19/17 20:51 99 20 96/62 (73) 94 Nasal Cannula 3.00 12/19/17 18:37 99.0 108 22 103/63 (76) 98 Nasal Cannula 3.00 12/19/17 17:26 99.8 116 26 116/68 (84) 96 Nasal Cannula 3.00 12/19/17 17:26 99.8 128 26 116/68 (84) 98 Nasal Cannula 3.00 12/19/17 16:42 101.4 118 24 127/69 (88) 98 3.00 12/19/17 15:27 96 Nasal Cannula 3.00 12/19/17 15:27 127 96 Nasal Cannula 3.00 12/19/17 15:20 96 Physical Exam GENERAL: frail, with mild amount of pain SKIN: No rashes, HEAD: Atraumatic. Normocephalic. No temporal or scalp tenderness. EYES: Pupils equal round and reactive. Extraocular motions intact. No scleral icterus. No injection or drainage. ENT: Nose without bleeding, purulent drainage or septal hematoma. Throat without erythema, tonsillar hypertrophy or exudate. Uvula midline. Airway patent. NECK: Trachea midline. No JVD or lymphadenopathy. Supple, nontender, no meningeal signs. CARDIOVASCULAR: Regular rate and rhythm without murmurs, gallops, or rubs. RESPIRATORY: Clear to auscultation. Breath sounds equal bilaterally. No wheezes , rales, or rhonchi. GASTROINTESTINAL: tenderness to right abdomen MUSCULOSKELETAL: + pain left leg with limited ROM NEUROLOGICAL: Awake and alert. Cranial nerves II through XII intact. Motor and sensory grossly within normal limits. Laboratory Laboratory Tests Test 12/19/17 16:30 12/19/17 17:19 12/20/17 04:50 White Blood Count 23.6 18.0 Red Blood Count 3.31 3.49 Hemoglobin 10.7 10.8 Hematocrit 30.7 32.9 Mean Corpuscular Volume 92.7 94.1 Mean Corpuscular Hemoglobin 32.3 30.9 Mean Corpuscular Hemoglobin Concent 34.9 32.8 Red Cell Distribution Width 16.6 17.1 Platelet Count 110 106 Mean Platelet Volume 7.9 7.9 Neutrophils (%) (Auto) 93.3 87.7 Lymphocytes (%) (Auto) 2.3 3.9 Monocytes (%) (Auto) 4.0 8.2 Eosinophils (%) (Auto) 0.1 0.0 Basophils (%) (Auto) 0.3 0.2 Neutrophils # (Auto) 22.1 15.8 Lymphocytes # (Auto) 0.5 0.7 Monocytes # (Auto) 0.9 1.5 Eosinophils # (Auto) 0.0 0.0 Basophils # (Auto) 0.1 0.0 CBC Comment DIFF FINAL AUTO DIFF Differential Comment FINAL DIFF MANUAL Blood Urea Nitrogen 13 10 Creatinine 0.43 0.49 Random Glucose 88 73 Total Protein 6.1 6.3 Albumin 2.7 2.6 Calcium Level 8.0 8.8 Alkaline Phosphatase 286 272 Aspartate Amino Transf (AST/SGOT) 23 25 Alanine Aminotransferase (ALT/SGPT) 35 33 Total Bilirubin 0.4 0.5 Sodium Level 134 137 Potassium Level 4.0 3.9 Chloride Level 101 101 Carbon Dioxide Level 26.6 27.9 Anion Gap 6 8 Estimat Glomerular Filtration Rate 152 131 Lactic Acid Level 0.7 Urine Color YELLOW Urine Turbidity SL CLOUDY Urine pH 7.5 Urine Specific [place] 1.015 Urine Protein 100 Urine Glucose (UA) NEG Urine Ketones NEG Urine Occult Blood LARGE Urine Nitrite NEG Urine Bilirubin NEG Urine Urobilinogen 0.2 Urine Leukocyte Esterase SMALL Urine RBC 50-99 Urine WBC 15-19 Urine WBC [place] FEW Urine Squamous Epithelial Cells 0-5 Microscopic Urinalysis Comment CULTURE INDICATED Differential Total Cells Counted 100 Neutrophils % (Manual) 74 Band Neutrophils % 14 Lymphocytes % 4 Monocytes % 7 Neutrophils # (Manual) 16.0 Metamyelocytes 1 Toxic Granulation 2+ Platelet Estimate LOW Platelet Morphology Comment NORMAL Date/Time Source Procedure Growth Status 12/19/17 16:30 Blood Peripheral Aerobic Blood Culture - Preliminary NO GROWTH IN 1 DAY Resulted 12/19/17 16:30 Blood Peripheral Anaerobic Blood Culture - Preliminary NO GROWTH IN 1 DAY Resulted 12/19/17 17:19 Urine Clean Catch Urine Culture - Preliminary NO GROWTH IN 24 HOURS. Resulted Result Diagram: 12/20/17 0450 12/20/17 0450 Imaging Last Impressions Femur X-Ray 12/19/17 1525 Signed Impressions: CONCLUSION: Lytic lesion as above suspicious for metastatic disease. Chest X-Ray 12/19/17 1505 Signed Impressions: CONCLUSION: 1. Large emphysematous bleb involving the left lung apex. This is unchanged fr om previous. 2. Chronic interstitial changes throughout the pulmonary parenchyma. 3. [id number] in good position. Assessment and Plan Problem List: (1) Uterine cancer ICD Codes: C55 - Malignant neoplasm of uterus, part unspecified Status: Chronic Plan: patient is s/p 6th cycle of Taxol and Carboplatin on 12/08/17 future treatment based on clinical progress talked with Mrs. Jara about talking with Palliative Care to help with clarifying goals, establish code status. I explained to her that any treatment is palliative as we have had advancement of disease despite treatment. She expressed that she is unsure at this time what her desire for treatment is. She is agreeable to talk with Palliative Care. (2) Pathological fracture, left femur, initial encounter for fracture ICD Codes: M84.452A - Pathological fracture, left femur, initial encounter for fracture Status: Acute Plan: Orthopedics consulted, surgery tomorrow for nino placement for pathological fracture to left femur with biopsy radiation oncology consulted for treatment recommendations (3) Sepsis secondary to UTI ICD Codes: A41.9 - Sepsis, unspecified organism; N39.0 - Urinary tract infection, site not specified Status: Acute Plan: urine culture +, sensitivity is pending IV Cefepime per medicine team Blood cultures pending, - X 1 day we appreciate care and management of Mrs. Jara Problem Qualifiers (1) Uterine cancer: Sharif Randle December 20, 2017 15:59
[2017-12-20] MEDS: KETOROLAC TROMETHAMINE 30 MG/ML (IVP) VIAL IV PUSH SCH ×2 (17:43→23:27)
[2017-12-20] MEDS: LORazepam 0.5 MG TAB PO PRN (17:43)
[2017-12-20] MEDS ORDERED: KETOROLAC TROMETHAMINE 60 MG/2 ML (IM) VIAL IM SCH (18:00)
[2017-12-20] MEDS ORDERED: SIMETHICONE 125 MG CHEWABLE TAB PO ONE (21:45)
[2017-12-21] VITALS (7 sets, daily range): BP systolic 96–107; BP diastolic 57–78; PULSE 80–102; RESP 16–20; TEMP 97.9–98.7; O2SAT 91–96
[2017-12-21] MEDS ORDERED: CHLORHEXIDINE GLUCONATE 2 % 1 PACK (2 CLOTHS) TOPICAL PRN (03:30)
[2017-12-21] MEDS ORDERED: POVIDONE IODINE 5% (ANTISEPSIS KIT) 4 APPLICATIONS EACH NARE PRN (03:30)
[2017-12-21] MEDS ORDERED: LACTATED RINGER'S 1000 ML IV PRN (03:30)
[2017-12-21] MEDS ORDERED: SODIUM CHLORID 0.9% 500 ML IV PRN (03:30)
[2017-12-21] MEDS: ACETAMINOPHEN/HYDROcodone 325 MG/7.5 MG TAB PO PRN ×4 (04:29→22:37)
[2017-12-21] MEDS: KETOROLAC TROMETHAMINE 30 MG/ML (IVP) VIAL IV PUSH SCH ×4 (05:01→22:40)
[2017-12-21 05:54] LABS: AUTOMATED NEUTROPHIL # 12.7 TH/MM3 (1.8-7.7); BASOPHIL % 0.3 % (0.0-2.0); EOSINOPHIL % 0.1 % (0.0-4.0); HEMATOCRIT 32.6 % (35.0-46.0); HEMOGLOBIN 10.6 GM/DL (11.6-15.3); LYMPHOCYTE # 0.6 TH/MM3 (1.0-4.8); MEAN CORPUSCULAR HGB CONC 32.7 % (32.0-36.0); MEAN PLATELET VOLUME 8.4 FL (7.0-11.0); MONO % 5.5 % (0.0-8.0); MONOCYTE # 0.8 TH/MM3 (0-0.9); NEUT % 90.1 % (16.0-70.0); PLATELET COUNT 107 TH/MM3 (150-450); RED BLOOD COUNT 3.43 MIL/MM3 (4.00-5.30); RED CELL DISTRIBUTION WIDTH 17.2 % (11.6-17.2); WHITE BLOOD COUNT 14.1 TH/MM3 (4.0-11.0)
[2017-12-21 06:21] LABS: ALBUMIN 2.5 GM/DL (3.4-5.0); AST (GOT) 25 U/L (15-37); BICARBONATE 23.7 MEQ/L (21.0-32.0); BLOOD UREA NITROGEN 16 MG/DL (7-18); CALCIUM 8.8 MG/DL (8.5-10.1); CHLORIDE 100 MEQ/L (98-107); CREATININE 0.52 MG/DL (0.50-1.00); GLOMERULAR FILTRATION RATE 122 ML/MIN (>89); GLUCOSE,RANDOM 77 MG/DL (74-106); MAGNESIUM 2.1 MG/DL (1.5-2.5); SODIUM (NA) 134 MEQ/L (136-145)
[2017-12-21 06:30] LABS: ALKALINE PHOSPHATASE 287 U/L (45-117); ALT (GPT) 32 U/L (10-53); FREE T4 1.37 NG/DL (0.76-1.46); PHOSPHORUS 3.7 MG/DL (2.5-4.9); TOTAL BILIRUBIN ADULT 0.4 MG/DL (0.2-1.0); TOTAL PROTEIN 6.3 GM/DL (6.4-8.2)
[2017-12-21] MEDS: RESP: ALBUTEROL 2.5 MG/IPRATROPIUM 0.5 MG NEB (PRN) NEB ×3 (07:52→21:30)
[2017-12-21] MEDS: CEFEPIME INJ 2,000 MG in SODIUM CHLORIDE 0.9% INJ 100 ML IV SCH ×3 (07:57→22:38)
[2017-12-21] MEDS: SODIUM CHLORIDE 0.9% FLUSH 10 ML FLUSH IV FLUSH SCH ×2 (07:57→20:20)
[2017-12-21] MEDS: DOCUSATE SODIUM 50 MG/SENNA 8.6 MG TAB PO SCH ×2 (07:58→20:20)
[2017-12-21] MEDS: MEGESTROL ACETATE 40 MG TAB PO SCH ×4 (07:58→18:25)
[2017-12-21] MEDS: SERTRALINE HCL 50 MG TAB PO SCH (07:58)
[2017-12-21] MEDS: PANTOPRAZOLE SOD 20 MG DELAYED RELEASE TAB PO SCH (07:58)
[2017-12-21] MEDS: MORPHINE SULFATE 60 MG CONTROLLED RELEASE TAB PO SCH ×2 (07:58→20:20)
[2017-12-21] MEDS: LORazepam 0.5 MG TAB PO PRN ×2 (07:58→23:24)
--- NOTE | 2017-12-21 08:11 | MB ---
cc: Kaylah Clifton MD,Cameron Mckenzie,Esteban Mulligan,John Mulligan,Evens Chavez,Yan Slade DO DATE: 12/20/2017 PHYSICIAN REQUESTING CONSULT: Dr. Jacobsen and Dr. Yan Chavez REASON FOR CONSULTATION: History of uterine carcinosarcoma ongoing treatment. REASON FOR ADMISSION: Intractable pain in left leg, fever, diminished performance capacity. HISTORY OF PRESENT ILLNESS: This is a 57-year-old female who is known to our service. Her findings are reviewed by me. She is seen, counseled and examined by me in conjunction with our nurse practitioner, (Josee Randle). I agree with her findings, assessment and plan of care. This very nice lady who presented with a difficult set of circumstances initially with stage IV uterine carcinosarcoma. This was treated primarily with radiation followed by radiation to the left supraclavicular lymph nodes and then systemic chemotherapy with Taxol and carboplatin of which she has now received 6 cycles. She reports approximately 1 week of progressive pain in her left upper leg to the point that she could no longer bear weight and it got to where she could not even hardly lift it or move it even while lying in bed. She required a walker or a cane to assist in minimal ambulation, which was essentially between the bed and bathroom. She has also had low grade fevers, felt weak and has felt as though overall she was just doing poorly and presented to the emergency room where she was seen and evaluated and x-rays confirmed a 3.8 cm lytic lesion in the left femur with an associated nondisplaced fracture. Urinalysis suggested urinary tract infection. Blood cultures are pending. She was started on antibiotics. Symptomatic management was initiated. She was transferred to the [facility] from the [facility] for orthopedic and ongoing evaluation. Reportedly, she has been seen by orthopedics who have recommended placing a stabilization nino, as well as a biopsy from this site. Given her history, this almost certainly represents a metastatic site from her carcinosarcoma. A biopsy will further clarify. I have also had the opportunity to speak with Dr. Cameron Fregoso who had previously overseen her radiation and feels as though after approximately 5 days of healing after nino placement, she would be a candidate for palliative radiation to the lytic lesion in her left femur. She is seen now and admitted now for further evaluation and recommendations regarding these findings. PAST MEDICAL HISTORY: As outlined above. Her surgical history, medications, family history, and allergies are reviewed and are listed in the chart. I did not detect any new information. However, updated information is that she now uses home oxygen and uses that most of the time because of her shortness of breath and fatigue. She has been a lifetime smoker and has not been able to quit that habit. REVIEW OF SYSTEMS: As per history of present illness. She denies any bleeding. No change in her bowel or bladder function. Her appetite has diminished accompanied by her diminished energy. OBJECTIVE DATA: The plain films of the left femur are as described. 3.8 cm lytic lesion with a nondisplaced fracture. Chest x-ray shows a large emphysematous bleb in the left lung apex, stable from prior x-ray, chronic interstitial changes throughout the pulmonary parenchyma, a properly placed [id number] is noted. LABS: White count on admission 23.6 with hydration this morning, white count is 14.1, H and H is 10.6 and 32.6 (it is noted that she is on Neulasta stem cell support which may explain her elevated white count at least in part). Platelets 107. Electrolytes normal, potassium at 4.0, BUN and creatinine 16 and 0.52, alkaline phosphatase elevated at 287. Free T4 normal 1.37, TSH slightly elevated at 5.69. PHYSICAL EXAMINATION: VITAL SIGNS: Her maximum temperature upon admission was 101.4 degrees. She has been afebrile for at least 36 hours. Pulse 80-102, respirations 16-24, blood pressure 100-116/66-70, O2 saturation is 94 percent. GENERAL: She is alert, oriented, she appears chronically ill and uncomfortable, but in no acute distress. LUNGS: Clear at the apices, but there are some rhonchi and mild expiratory wheeze. There is decreased air exchange at the bases. CARDIOVASCULAR: Rapid regular rate and rhythm. ABDOMEN: Slightly distended, it is nonacute but there is discomfort on exam. A sense of a fullness in the epigastric region, possibly some ascites. BACK: Without CVA tenderness or spinal rebound tenderness. EXTREMITIES: Mild edema in the left femur, but focally quite tender. No palpable cords. Neurovascular otherwise intact. DISCUSSION: Time is spent discussion with Mylene Jara reviewing the findings in her case to date. I am sorry that she is feeling poorly. She is made aware again of the new findings and the almost certainty that this represents another manifestation of the carcinosarcoma. She has met with someone from orthopedics, who has recommended a stabilizing nino and biopsy. She is in agreement with that plan. She has also had the opportunity to speak with Dr. Cameron Fregoso via telephone (as he was in [place]) with recommendations for subsequent palliative radiation to that area and he will followup and see her in person shortly thereafter. With respect to her overall treatment, we would put any additional treatment on hold at this time with respect to chemotherapy. I congratulated her for getting through that treatment. It is unknown how long this lytic lesion has been present in her leg, but the concerns of recent symptomatology with an acute onset suggest a recent occurrence and/or progression of this lesion, which is quite worrisome given that she was on active chemotherapy. We will maximize her symptom management, maintain hydration, correction of electrolytes, pain and anxiety control, regulation of bowel function. I am very grateful for the excellent medical care. Move forward with orthopedic evaluation and procedure as per their recommendation. Once there has been a brief period of healing, move forward with palliative radiation to the lytic lesion, left femur. Thank you for the consultation. We will follow along in her care. ADDENDUM: Also in our discussion, expressed concerns and efforts to maximize symptom control and we have recommended palliative care consult and Mylene Jara agrees. MD BEVERLY Salvador/DENIS , 07:28 AM , 08:10 AM
[2017-12-21] MEDS: REMOVE OLD PATCH T-DERMAL SCH (09:00)
[2017-12-21] MEDS: NICOTINE 14 MG/24 HR PATCH T-DERMAL SCH (10:24)
[2017-12-21] MEDS ORDERED: DEXAMETHASONE SOD PHOS 4 MG/ML VIAL IV ONE (12:00)
[2017-12-21] MEDS ORDERED: PROPOFOL 200 MG/20 ML AMP IV ONE (12:00)
[2017-12-21] MEDS ORDERED: ROCURONIUM INJ 50 MG/5 ML SYRINGE IV PUSH ONE (12:00)
[2017-12-21] MEDS ORDERED: NEOSTIGMINE 5 MG/5 ML SYRINGE IV PUSH ONE (12:00)
[2017-12-21] MEDS ORDERED: ONDANSETRON HCL 4 MG/2 ML VIAL IV ONE (12:00)
[2017-12-21] MEDS ORDERED: GLYCOPYRROLATE 1 MG/5 ML SYRINGE IV PUSH ONE (12:00)
[2017-12-21] MEDS ORDERED: ePHEDrine/NS 25 MG/5 ML SYRINGE IV ONE (12:00)
[2017-12-21] MEDS ORDERED: PHENYLEPH/NS 1000 MCG/10 ML SYR IV ONE (12:00)
[2017-12-21] MEDS ORDERED: LIDOCAINE HCL 1% PF 5 ML SYRINGE OTHER ONE (12:00)
[2017-12-21] MEDS ORDERED: GENTAMICIN SULFATE 80 MG/2 ML VIAL ONE (12:06)
[2017-12-21] MEDS ORDERED: ACETAMINOPHEN 1000 MG/100 ML 100 ML IV ONE (12:35)
[2017-12-21] MEDS ORDERED: ceFAZolin INJ 1,000 MG VIAL ONE (13:27)
--- NOTE | 2017-12-21 13:30 | OTSOAPIP ---
RECEIVED OCCUPATIONAL THERAPY ORDERS. PATIENT IS OFF FLOOR FOR SURGERY. WILL FOLLOW UP WITH PATIENT AND REATTEMPT TOMORROW. INTERDISCIPLINARY COMMUNICATION: REVIEWED ELECTRONIC MEDICAL RECORD Therapist: Sharon Webb OTR/Danika Signature on file
--- NOTE | 2017-12-21 14:28 | PD.CONS ---
[facility] Service Orthopedic Surgeons Consult Requested By Dr Chavez Reason for Consult Pathologic fracture left femur. 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 Primary Care Physician Carlos Enrique Saleh MD Admission Diagnosis SEPSIS, PATHOLOGIC FX LEFT FEMUR Diagnoses: (1) Tobacco abuse Diagnosis: Secondary (2) Pathological fracture, left femur, initial encounter for fracture Diagnosis: Principal (3) Sepsis secondary to UTI Diagnosis: Principal (4) UTI (urinary tract infection) Diagnosis: Principal (5) Hydronephrosis, right Diagnosis: Secondary (6) Malnutrition Diagnosis: Secondary (7) Uterine cancer Diagnosis: Principal Review of Systems Constitutional: COMPLAINS OF: Weight loss, Change in appetite Eyes: DENIES: Blurred vision, Diplopia, Eye inflammation, Eye pain, Vision loss , Photosensitivity, Double Vision Ears, nose, mouth, throat: DENIES: Tinnitus, Hearing loss, Vertigo, Nasal discharge, Oral lesions, Throat pain, Hoarseness, Ear Pain, Running Nose, Epistaxis, Sinus Pain, Toothache, Odynophagia Respiratory: DENIES: Apneas, Cough, Snoring, Wheezing, Hemoptysis, Sputum production, Shortness of breath Gastrointestinal: DENIES: Abdominal pain, Black stools, Bloody stools, Constipation, Diarrhea, Nausea, Vomiting, Difficulty Swallowing, Anorexia Integumentary: COMPLAINS OF: Abnormal pigmentation Hematologic/lymphatic: DENIES: Bruising, Lymphadenopathy Immunologic/allergic: DENIES: Eczema, Urticaria Neurologic: COMPLAINS OF: Localized weakness, Poor Balance Psychiatric: DENIES: Anxiety, Confusion, Mood changes, Depression, Hallucinations, Agitation, Suicidal Ideation, Homicidal Ideation, Delusions Past Family Social History Past Medical History COPD and tobacco abuse Uterine cancer History of D&C Found to have UTI Fracture of left femur Uterine cancer with bone metastasis history of surgical removal of a straight pin in the right foot as a child Past Surgical History Oral surgery Tonsillectomy Port placement Allergies: Coded Allergies: No Known Allergies (Verified Allergy, Unknown, 12/19/17) Uncoded Allergies: ADHESIVES (Allergy, Unknown, rash, 03/14/17) Active Ordered Medications Current Medications Medications (Trade) Dose Ordered Sig/Mata Route Start Time Stop Time Status Last Admin (NS Flush) 2 ml UNSCH PRN IV FLUSH 12/19/17 18:15 12/20/17 05:29 (NS Flush) 2 ml BID IV FLUSH 12/19/17 21:00 12/21/17 07:57 (Tylenol) 650 mg Q4H PRN PO 12/19/17 18:15 (Tylenol) 650 mg Q6H PRN PO 12/19/17 18:15 ([place] 5-325 Mg) 1 tab Q4H PRN PO 12/19/17 18:15 ([place] 7.5-325 Mg) 1 tab Q4H PRN PO 12/19/17 18:15 12/21/17 09:41 (Narcan Inj) 0.4 mg UNSCH PRN IV PUSH 12/19/17 18:15 (Sharon-Colace) 1 tab BID PO 12/19/17 21:00 12/21/17 07:58 (Milk Of Magnesia Liq) 30 ml Q12H PRN PO 12/19/17 18:15 12/20/17 08:19 (Senokot) 17.2 mg Q12H PRN PO 12/19/17 18:15 (Dulcolax Supp) 10 mg DAILY PRN RECTAL 12/19/17 18:15 (Lactulose Liq) 30 ml DAILY PRN PO 12/19/17 18:15 Cefepime HCl 2000 mg/Sodium Chloride 100 ml @ 200 mls/hr Q8H IV 12/20/17 00:00 12/21/17 07:57 (Duoneb Neb) 1 ampule Q2HR NEB PRN NEB 12/19/17 18:15 12/21/17 07:52 (Morphine Inj) 2 mg Q3H PRN IV PUSH 12/20/17 01:15 12/20/17 08:20 (NS Flush) 5 ml UNSCH PRN IV FLUSH 12/20/17 03:45 (Heparin Central Flush) 250 units UNSCH PRN IV FLUSH 12/20/17 03:45 12/20/17 04:55 (Heparin Central Flush) 500 units UNSCH IV FLUSH 12/20/17 03:45 (Ativan) 0.5 mg DAILY PRN PO 12/20/17 09:00 12/21/17 07:58 (Megace) 40 mg QID PO 12/20/17 09:00 12/21/17 07:58 (Oramorph Sr) 60 mg Q12HR PO 12/20/17 09:00 12/21/17 07:58 (Zofran Odt) 4 mg Q6HR PRN SL 12/20/17 09:00 (Protonix) 20 mg DAILY PO 12/20/17 09:00 12/21/17 07:58 (Zoloft) 25 mg DAILY PO 12/20/17 09:00 12/21/17 07:58 (Duoneb Neb) 1 ampule Q4HR NEB PRN NEB 12/20/17 09:00 (Catapres) 0.1 mg Q4H PRN PO 12/20/17 09:00 (Pill Splitter) 1 ea UNSCH PRN OTHER 12/20/17 09:15 (Habitrol 14 Mg Patch.24 Hr) 1 patch DAILY T-DERMAL 12/21/17 09:00 12/21/17 10:24 Miscellaneous Information 1 DAILY T-DERMAL 12/21/17 09:00 (Toradol Inj) 15 mg Q6HR IV PUSH 12/20/17 18:00 12/23/17 12:00 12/21/17 05:01 Lactated Ringer's 1,000 ml @ 30 mls/hr Q24H PRN IV 12/21/17 03:30 12/24/17 03:29 Sodium Chloride 500 ml @ 30 mls/hr [id number] PRN IV 12/21/17 03:30 12/24/17 03:29 (Betadine 5% Antisepsis Kit) 1 applic SUPERVISOR/PORT DIRECTOR PRN EACH NARE 12/21/17 03:30 12/24/17 03:29 (Chlorhexidine 2% Cloth) 3 pack SUPERVISOR/PORT DIRECTOR PRN TOPICAL 12/21/17 03:30 12/24/17 03:29 Reported Meds & Active Scripts Active Proair Hfa 8.5 GM Inh (Albuterol Sulfate) 90 Mcg/Act Aer 2 Puff INH Q4-6H PRN 108 mcg/actuation Zofran Odt (Ondansetron Odt) 4 Mg Tab 4 Mg SL Q6HR PRN Ventolin Hfa 18 GM Inh (Albuterol Sulfate) 90 Mcg/Act Aer 2 Puff INH Q4H PRN Oxycodone (Oxycodone HCl) 5 Mg Tab 5 Mg PO Q4H PRN Morphine ER (Morphine Sulfate) 60 Mg Tab 60 Mg PO Q12HR Oxygen (O2) Device Liter SHEYLA.CANULA CONTINUOUS Oxygen Concentrator Portable Gaseous 2 L/min via Nasal Canula Continuous For 99 months Reported Protonix (Pantoprazole Sodium) 20 Mg Tab 20 Mg PO DAILY Ativan (Lorazepam) 0.5 Mg Tab 0.5 Mg PO DAILY PRN Megestrol (Megestrol Acetate) 40 Mg Tab 40 Mg PO QID Sertraline (Sertraline HCl) 25 Mg Tab 25 Mg PO DAILY Family History History of drug dependence in her brother History of asthma in her mother Tobacco abuse in the family Social History Still actively smoking at least a half a pack if not more daily Denies any illicits Denies any alcohol abuse Physical Exam Vital Signs Vital Signs Date Time Temp Pulse Resp B/P (MAP) Pulse Ox O2 Delivery O2 Flow Rate FiO2 12/21/17 08:00 97.9 86 18 96/57 (70) 95 12/21/17 07:53 94 Nasal Cannula 3.00 12/21/17 04:00 98.7 87 16 100/69 (79) 94 12/21/17 00:00 98.0 80 16 104/78 (87) 94 12/20/17 20:02 95 Nasal Cannula 3.00 12/20/17 20:00 98.3 87 16 100/66 (77) 97 12/20/17 16:39 98.4 94 22 105/76 (86) 94 Physical Exam HEENT: Normocephalic atraumatic pupils equal round reactive. Alopecia NECK: Supple. No abnormal masses. Full range of motion. Abnormal skin changes both sides of anterior neck CHEST: Clear to auscultation with no rales or rhonchi's or wheezes. HEART: Regular rate and rhythm. No murmurs. ABDOMEN: Soft, nontender, no masses. Normal active bowel sounds. GENITOURINARY: Deferred MUSCULOSKELETAL: Left leg shows mild swelling. No calf tenderness. Tenderness especially over midportion of the left thigh. Pain with internal and external rotation. Normal alignment. Mild increased external rotation compared to the right Laboratory Laboratory Tests Test 12/21/17 04:30 White Blood Count 14.1 Red Blood Count 3.43 Hemoglobin 10.6 Hematocrit 32.6 Mean Corpuscular Volume 95.0 Mean Corpuscular Hemoglobin 31.0 Mean Corpuscular Hemoglobin Concent 32.7 Red Cell Distribution Width 17.2 Platelet Count 107 Mean Platelet Volume 8.4 Neutrophils (%) (Auto) 90.1 Lymphocytes (%) (Auto) 4.0 Monocytes (%) (Auto) 5.5 Eosinophils (%) (Auto) 0.1 Basophils (%) (Auto) 0.3 Neutrophils # (Auto) 12.7 Lymphocytes # (Auto) 0.6 Monocytes # (Auto) 0.8 Eosinophils # (Auto) 0.0 Basophils # (Auto) 0.0 CBC Comment DIFF FINAL Differential Comment Blood Urea Nitrogen 16 Creatinine 0.52 Random Glucose 77 Total Protein 6.3 Albumin 2.5 Calcium Level 8.8 Phosphorus Level 3.7 Magnesium Level 2.1 Alkaline Phosphatase 287 Aspartate Amino Transf (AST/SGOT) 25 Alanine Aminotransferase (ALT/SGPT) 32 Total Bilirubin 0.4 Sodium Level 134 Potassium Level 4.0 Chloride Level 100 Carbon Dioxide Level 23.7 Anion Gap 10 Estimat Glomerular Filtration Rate 122 Free Thyroxine 1.37 Thyroid Stimulating Hormone 3rd Gen 5.690 Date/Time Source Procedure Growth Status 12/19/17 16:30 Blood Peripheral Aerobic Blood Culture - Preliminary NO GROWTH IN 2 DAYS Resulted 12/19/17 16:30 Blood Peripheral Anaerobic Blood Culture - Preliminary NO GROWTH IN 2 DAYS Resulted 12/19/17 17:19 Urine Clean Catch Urine Culture - Final <10,000 CFU/ML MIXED GRAM POSITIVE FL... Complete Result Diagram: 12/21/17 0430 12/21/17 0430 Assessment & Plan Assessment and Plan Pathologic fracture left femur. Probable metastatic uterine cancer. PLAN: Surgical treatment for surgical stabilization of the left femur with extended trochanteric nino for intramedullary fixation. Biopsy at the time of surgical treatment. Consent: There are risks with this surgery including infection, bleeding, loss of motion, continued pain, need for further surgery, neurologic or vascular injury, nonunion, malunion. The patient understands these issues and wishes to proceed forward with surgery as outlined above. Surgical treatment today if time is available in the operating room Evens Mulligan MD December 21, 2017 14:28
--- NOTE | 2017-12-21 14:35 | PD.OP ---
cc: Evens Mulligan MD; Kaylah Clifton MD Operative Report Date of Surgery: December 21, 2017 Preoperative Diagnosis: History of metastatic uterine sarcoma. Pathologic fracture left femur Postoperative Diagnosis: Same Procedure: Open treatment intramedullary rodding of pathologic left femur fracture with stroke and treat extended trochanteric nail and proximal and distal fixation. Biopsy of the left femur Anesthesia: General Surgeon: Evens Mulligan Nurse Instructor(s): SARA Eugene Operation and Findings: EBL: 200 cc INDICATION: This patient is a 57-year-old female who is being treated medically for metastatic uterine sarcoma. She has had progressive pain in the region of her left hip and upper leg over a period of several weeks. She presented where x-ray showed evidence of a pathologic fracture developing in the mid shaft associated with a radiolucent lesion, likely a metastatic focus of her primary sarcoma. She presents for surgical stabilization with an open biopsy. NOTE: Cande Eugene PA-C was present for the entire surgical procedure as my event marketing assistant. In my medical opinion her skill and care was necessary for proper management of this patient PROCEDURE: The patient was brought to the operating room and anesthetized in the supine position. He was placed on the fracture table with the left leg held extended. The opposite leg was in the well leg fernandes. The femur fracture was reduced anatomically. The hip and leg was scrubbed with alcohol followed by Hibiclens followed by ChloraPrep. A timeout was done and antibiotics were given within 1 hour time window. A longitudinal incision was made over the lateral aspect of the proximal femur. Dissection continued down to the top of the greater trochanter. A cannulated awl was placed down through the top of the greater trochanter followed by placement of the guidepin along the shaft of the femur. This was reamed distally to 1 mm greater than the nino size and proximally to 17 mm. A separate incision was made laterally followed by placement of guidepin to the proper position of the femoral head. This is reamed and tapped in the proper length was placed up into the proper location. The reamings from the canal were sent to pathology for later analysis. Using a freehand technique, 2 distal incisions were position followed by drilling and placement of proper length screws through the nino and across the lateral medial cortex. Intraoperative x-rays were obtained. Alignment was satisfactory. No complication was noted. The wound was irrigated copiously. Hemostasis was controlled. The fascia was closed with interrupted Vicryl suture, subcutaneous tissue 2-0 Vicryl suture, skin with running intradermal 3-0 Vicryl followed by Steri-Strips and benzoin. A sterile dressing was applied The patient was awakened and taken to the recovery room in satisfactory condition. FINDINGS: There was evidence of a fracture extending through a radiolucent region in the midshaft of the femur. The intramedullary nino was in satisfactory alignment. There was no complication that was appreciated. We used a 340 mm long, 13 mm trochanteric entry extended nino, 125, ITS. Evens Mulligan MD December 21, 2017 14:35
--- NOTE | 2017-12-21 15:03 | RADRPT ---
EXAM DATE: 12/21/2017 3:00 PM EDT AGE/SEX: 57 years / Female INDICATIONS: Left hip troch nail. CLINICAL DATA: This is the patient's initial encounter. Patient reports that signs and symptoms have been present for 1 day and indicates a pain score of Nonresponsive. MEDICAL/SURGICAL HISTORY: Non-responsive. Non-responsive. COMPARISON: No prior [place] exams available for comparison. CONCLUSION: Fluoroscopic images during placement of a compression pin/intramedullary nino left femur Electronically signed by: Von Vickers MD 12/21/2017 3:02 PM EDT
[2017-12-21] MEDS ORDERED: *RESP: ALBUTEROL 2.5 MG/3 ML NEB (PRN) PERIprocedural Use ONLY NEB ONE (15:14)
--- NOTE | 2017-12-21 15:14 | HHI.PR ---
Subjective Remarks Patient is a 57-year-old female initially presented to [place] emergency department with complaint of fever. Patient has a history of stage IV uterine cancer. Patient is seeing Dr. Clifton of gynecology oncology. She is previously had chemo and radiation. Recently had chemotherapy. Last chemotherapy was about a week and half ago. Previously had blood transfusion 2 days ago. Became short of breath for several months has been on home oxygen since last March she still smokes at least a half a pack if not more a day of cigarettes. Has severe pain in her left leg for several days and has not been able to walk on left leg due to pain. Having pain in her left femur. Also noted to have some swelling in her right foot for the past day or so. Was found to have a left femur pathological fracture. Has uterine cancer with metastasis to her neck believe 12-21 Open treatment intramedullary rodding of pathologic left femur fracture with stroke and treat extended trochanteric nail and proximal and distal fixation. Biopsy of the left femur TODAY BY ORTHOPEDICS SEEN IN PACU AM LABS DW RN AND PT HYPOTHYROIDISM START LOW DOSE SYNTHROID 25MCG DAILY Objective Vitals Vital Signs Date Time Temp Pulse Resp B/P (MAP) Pulse Ox O2 Delivery O2 Flow Rate FiO2 12/21/17 08:00 97.9 86 18 96/57 (70) 95 12/21/17 07:53 94 Nasal Cannula 3.00 12/21/17 04:00 98.7 87 16 100/69 (79) 94 12/21/17 00:00 98.0 80 16 104/78 (87) 94 12/20/17 20:02 95 Nasal Cannula 3.00 12/20/17 20:00 98.3 87 16 100/66 (77) 97 12/20/17 16:39 98.4 94 22 105/76 (86) 94 I/O 12/20/17 12/20/17 12/20/17 12/21/17 12/21/17 12/21/17 07:00 15:00 23:00 07:00 15:00 23:00 Intake Total 540 ml 600 ml Output Total 650 ml 60 ml 700 ml 100 ml Balance -110 ml -60 ml -700 ml 500 ml Intake Oral 440 ml IV Total 100 ml Other 600 ml Output Urine Total 650 ml 700 ml Stool Total 60 ml Estimated Blood Loss 100 ml # Bowel Movements 0 0 Result Diagram: 12/21/17 0430 12/21/17 0430 Other Results Laboratory Tests Test 12/19/17 16:30 12/19/17 17:19 12/20/17 04:50 12/21/17 04:30 White Blood Count 23.6 TH/MM3 18.0 TH/MM3 14.1 TH/MM3 Red Blood Count 3.31 MIL/MM3 3.49 MIL/MM3 3.43 MIL/MM3 Hemoglobin 10.7 GM/DL 10.8 GM/DL 10.6 GM/DL Hematocrit 30.7 % 32.9 % 32.6 % Mean Corpuscular Volume 92.7 FL 94.1 FL 95.0 FL Mean Corpuscular Hemoglobin 32.3 PG 30.9 PG 31.0 PG Mean Corpuscular Hemoglobin Concent 34.9 % 32.8 % 32.7 % Red Cell Distribution Width 16.6 % 17.1 % 17.2 % Platelet Count 110 TH/MM3 106 TH/MM3 107 TH/MM3 Mean Platelet Volume 7.9 FL 7.9 FL 8.4 FL Neutrophils (%) (Auto) 93.3 % 87.7 % 90.1 % Lymphocytes (%) (Auto) 2.3 % 3.9 % 4.0 % Monocytes (%) (Auto) 4.0 % 8.2 % 5.5 % Eosinophils (%) (Auto) 0.1 % 0.0 % 0.1 % Basophils (%) (Auto) 0.3 % 0.2 % 0.3 % Neutrophils # (Auto) 22.1 TH/MM3 15.8 TH/MM3 12.7 TH/MM3 Lymphocytes # (Auto) 0.5 TH/MM3 0.7 TH/MM3 0.6 TH/MM3 Monocytes # (Auto) 0.9 TH/MM3 1.5 TH/MM3 0.8 TH/MM3 Eosinophils # (Auto) 0.0 TH/MM3 0.0 TH/MM3 0.0 TH/MM3 Basophils # (Auto) 0.1 TH/MM3 0.0 TH/MM3 0.0 TH/MM3 CBC Comment DIFF FINAL AUTO DIFF DIFF FINAL Differential Comment FINAL DIFF MANUAL Blood Urea Nitrogen 13 MG/DL 10 MG/DL 16 MG/DL Creatinine 0.43 MG/DL 0.49 MG/DL 0.52 MG/DL Random Glucose 88 MG/DL 73 MG/DL 77 MG/DL Total Protein 6.1 GM/DL 6.3 GM/DL 6.3 GM/DL Albumin 2.7 GM/DL 2.6 GM/DL 2.5 GM/DL Calcium Level 8.0 MG/DL 8.8 MG/DL 8.8 MG/DL Alkaline Phosphatase 286 U/L 272 U/L 287 U/L Aspartate Amino Transf (AST/SGOT) 23 U/L 25 U/L 25 U/L Alanine Aminotransferase (ALT/SGPT) 35 U/L 33 U/L 32 U/L Total Bilirubin 0.4 MG/DL 0.5 MG/DL 0.4 MG/DL Sodium Level 134 MEQ/L 137 MEQ/L 134 MEQ/L Potassium Level 4.0 MEQ/L 3.9 MEQ/L 4.0 MEQ/L Chloride Level 101 MEQ/L 101 MEQ/L 100 MEQ/L Carbon Dioxide Level 26.6 MEQ/L 27.9 MEQ/L 23.7 MEQ/L Anion Gap 6 MEQ/L 8 MEQ/L 10 MEQ/L Estimat Glomerular Filtration Rate 152 ML/MIN 131 ML/MIN 122 ML/MIN Lactic Acid Level 0.7 mmol/L Urine Color YELLOW Urine Turbidity SL CLOUDY Urine pH 7.5 Urine Specific [place] 1.015 Urine Protein 100 mg/dL Urine Glucose (UA) NEG mg/dL Urine Ketones NEG mg/dL Urine Occult Blood LARGE Urine Nitrite NEG Urine Bilirubin NEG Urine Urobilinogen 0.2 MG/DL Urine Leukocyte Esterase SMALL Urine RBC 50-99 /hpf Urine WBC 15-19 /hpf Urine WBC Clumps FEW Urine Squamous Epithelial Cells 0-5 /hpf Microscopic Urinalysis Comment CULTURE INDICATED Differential Total Cells Counted 100 Neutrophils % (Manual) 74 % Band Neutrophils % 14 % Lymphocytes % 4 % Monocytes % 7 % Neutrophils # (Manual) 16.0 TH/MM3 Metamyelocytes 1 % Toxic Granulation 2+ Platelet Estimate LOW Platelet Morphology Comment NORMAL Phosphorus Level 3.7 MG/DL Magnesium Level 2.1 MG/DL Free Thyroxine 1.37 NG/DL Thyroid Stimulating Hormone 3rd Gen 5.690 uIU/ML Imaging Last Impressions Hip X-Ray 12/21/17 0000 Signed Impressions: CONCLUSION: Fluoroscopic images during placement of a compression pin/intramedullary nino le ft femur Femur X-Ray 12/19/17 1525 Signed Impressions: CONCLUSION: Lytic lesion as above suspicious for metastatic disease. Chest X-Ray 12/19/17 1505 Signed Impressions: CONCLUSION: 1. Large emphysematous bleb involving the left lung apex. This is unchanged fr om previous. 2. Chronic interstitial changes throughout the pulmonary parenchyma. 3. [id number] in good position. Objective Remarks GENERAL: This is a quite cachectic thin malnourished patient in moderate distress due to her left femur SKIN: No rashes, ecchymoses or lesions. Cool and dry. HEAD: Atraumatic. Normocephalic. No temporal or scalp tenderness. EYES: Pupils equal round and reactive. Extraocular motions intact. No scleral icterus. No injection or drainage. ENT: Nose without bleeding, purulent drainage or septal hematoma. Throat without erythema, tonsillar hypertrophy or exudate. Uvula midline. Airway patent. NECK: Trachea midline. No JVD or lymphadenopathy. Supple, nontender, no meningeal signs. CARDIOVASCULAR: Regular rate and rhythm without murmurs, gallops, or rubs. S1- S2 no S3 or S4 RESPIRATORY: Clear to auscultation. Breath sounds equal bilaterally. No wheezes , rales, or rhonchi. GASTROINTESTINAL: Abdomen soft, non-tender, nondistended. No hepato-splenomegaly , or palpable masses. No guarding. MUSCULOSKELETAL: Extremities without clubbing, cyanosis, or edema. No joint tenderness, effusion, some edema in the right lower extremity. No calf tenderness. Negative Homans sign bilaterally. Decreased range of motion of left lower extremity NEUROLOGICAL: Awake and alert. Cranial nerves II through XII intact. Motor and sensory grossly within normal limits. 4 out of 5 muscle strength in all muscle groups. Normal speech. Insight and judgment is good Mood and behavior is appropriate has generalized weakness Procedures Date of Surgery: December 21, 2017 Preoperative Diagnosis: History of metastatic uterine sarcoma. Pathologic fracture left femur Postoperative Diagnosis: Same Procedure: Open treatment intramedullary rodding of pathologic left femur fracture with stroke and treat extended trochanteric nail and proximal and distal fixation. Biopsy of the left femur Medications and IVs Current Medications Sodium Chloride 1,000 ml @ 999 mls/hr BOLUS ONCE IV Last administered on 12/19at 15:44; Start 12/19/17 at 15:45; Stop 12/19/17 at 16:45; Status DC Cefepime HCl 2000 mg/Sodium Chloride 100 ml @ 200 mls/hr ONCE ONCE IV Last administered on 12/19/17at 16:39; Start 12/19/17 at 15:45; Stop 12/19/17 at 16:14 ; Status DC Ondansetron HCl (Zofran Inj) 4 mg ONCE ONCE IV PUSH Last administered on at 16:47; Start 12/19/17 at 16:45; Stop 12/19/17 at 16:46; Status DC Morphine Sulfate (Morphine Inj) 10 mg ONCE ONCE IV PUSH Last administered on at 16:48; Start 12/19/17 at 16:45; Stop 12/19/17 at 16:46; Status DC Sodium Chloride 1,000 ml @ 999 mls/hr BOLUS ONCE IV Last administered on 12/19at 17:44; Start 12/19/17 at 17:15; Stop 12/19/17 at 18:15; Status DC Albuterol/ Ipratropium (Duoneb Neb) 1 ampule ONCE ONCE NEB Last administered on 12/19/17at 17:25; Start 12/19/17 at 17:15; Stop 12/19/17 at 17:16; Status DC Sodium Chloride (NS Flush) 2 ml UNSCH PRN IV FLUSH FLUSH AFTER USING IV ACCESS Last administered on 12/20/17at 05:29; Start 12/19/17 at 18:15 Sodium Chloride (NS Flush) 2 ml BID IV FLUSH Last administered on 12/21/17at 07: 57; Start 12/19/17 at 21:00 Acetaminophen (Tylenol) 650 mg Q4H PRN PO TEMP > 100.4; Start 12/19/17 at 18:15 Ondansetron HCl (Zofran Inj) 4 mg Q6H PRN IVP NAUSEA OR VOMITING Last administered on 12/20/17at 04:44; Start 12/19/17 at 18:15; Stop 12/20/17 at 09:02 ; Status DC Acetaminophen (Tylenol) 650 mg Q6H PRN PO PAIN SCALE 1 TO 2; Start 12/19/17 at 18:15 Acetaminophen/ Hydrocodone Bitart ([place] 5-325 Mg) 1 tab Q4H PRN PO PAIN SCALE 3 TO 5; Start 12/19/17 at 18:15 Acetaminophen/ Hydrocodone Bitart ([place] 7.5-325 Mg) 1 tab Q4H PRN PO PAIN SCALE 6 TO 10 Last administered on 12/21/17at 09:41; Start 12/19/17 at 18:15 Morphine Sulfate (Morphine Inj) 2 mg Q3H PRN IV PUSH BREAKTHROUGH PAIN Last administered on 12/19/17at 22:26; Start 12/19/17 at 18:15; Stop 12/20/17 at 01:09 ; Status DC Naloxone HCl (Narcan Inj) 0.4 mg UNSCH PRN IV PUSH SEE LABEL COMMENTS; Start at 18:15 Senna/Docusate Sodium (Sharon-Colace) 1 tab BID PO Last administered on at 07:58; Start 12/19/17 at 21:00 Magnesium Hydroxide (Milk Of Magnesia Liq) 30 ml Q12H PRN PO Mild constipation Last administered on 12/20/17at 08:19; Start 12/19/17 at 18:15 Sennosides (Senokot) 17.2 mg Q12H PRN PO Moderate constipation; Start 12/19/17 at 18:15 Bisacodyl (Dulcolax Supp) 10 mg DAILY PRN RECTAL SEVERE CONSITIPATION; Start at 18:15 Lactulose (Lactulose Liq) 30 ml DAILY PRN PO SEVERE CONSITIPATION; Start at 18:15 Cefepime HCl 2000 mg/Sodium Chloride 100 ml @ 200 mls/hr Q8H IV Last administered on 12/21/17at 07:57; Start 12/20/17 at 00:00 Albuterol/ Ipratropium (Duoneb Neb) 1 ampule Q2HR NEB PRN NEB SOB/WHEEZING Last administered on 12/21/17at 07:52; Start 12/19/17 at 18:15 Ondansetron HCl (Zofran Inj) 4 mg ONCE ONCE IV PUSH Last administered on at 18:42; Start 12/19/17 at 18:45; Stop 12/19/17 at 18:46; Status DC Morphine Sulfate (Morphine Inj) 10 mg ONCE ONCE IV PUSH Last administered on at 18:42; Start 12/19/17 at 18:45; Stop 12/19/17 at 18:46; Status DC Morphine Sulfate (Morphine Inj) 2 mg Q3H PRN IV PUSH BREAKTHROUGH PAIN Last administered on 12/20/17at 08:20; Start 12/20/17 at 01:15 Sodium Chloride (NS Flush) 5 ml UNSCH PRN IV FLUSH SEE PROTOCOL TABLE; Start at 03:45 Heparin Sodium (Porcine) (Heparin Central Flush) 250 units UNSCH PRN IV FLUSH SEE PROTOCOL TABLE Last administered on 12/20/17at 04:55; Start 12/20/17 at 03:45 Heparin Sodium (Porcine) (Heparin Central Flush) 500 units UNSCH IV FLUSH ; Start 12/20/17 at 03:45 Lorazepam (Ativan) 0.5 mg DAILY PRN PO ANXIETY AND/OR AGITATION Last administered on 12/21/17at 07:58; Start 12/20/17 at 09:00 Megestrol Acetate (Megace) 40 mg QID PO Last administered on 12/21/17at 07:58; Start 12/20/17 at 09:00 Morphine Sulfate (Oramorph Sr) 60 mg Q12HR PO Last administered on 12/21/17at 07 :58; Start 12/20/17 at 09:00 Ondansetron HCl (Zofran Odt) 4 mg Q6HR PRN SL Nausea/Vomiting; Start 12/20/17 at 09:00 Pantoprazole Sodium (Protonix) 20 mg DAILY PO Last administered on 12/21/17at 07 :58; Start 12/20/17 at 09:00 Sertraline HCl (Zoloft) 25 mg DAILY PO Last administered on 12/21/17at 07:58; Start 12/20/17 at 09:00 Albuterol/ Ipratropium (Duoneb Neb) 1 ampule Q4HR NEB PRN NEB SOB/COUGH; Start 12/20/17 at 09:00 Clonidine (Catapres) 0.1 mg Q4H PRN PO SBP>160, DBP>90; Start 12/20/17 at 09:00 Miscellaneous (Pill Splitter) 1 ea UNSCH PRN OTHER SEE LABEL COMMENTS; Start at 09:15 Nicotine (Habitrol 14 Mg Patch.24 Hr) 1 patch ONCE ONCE T-DERMAL Last administered on 12/20/17at 17:44; Start 12/20/17 at 12:00; Stop 12/20/17 at 12:03 ; Status DC Nicotine (Habitrol 14 Mg Patch.24 Hr) 1 patch DAILY T-DERMAL Last administered on 12/21/17at 10:24; Start 12/21/17 at 09:00 Miscellaneous Information 1 DAILY T-DERMAL ; Start 12/21/17 at 09:00 Ketorolac Tromethamine (Toradol Inj) 15 mg Q6HR IM ; Start 12/20/17 at 18:00; Stop 12/20/17 at 18:00; Status DC Ketorolac Tromethamine (Toradol Inj) 15 mg Q6HR IV PUSH Last administered on at 05:01; Start 12/20/17 at 18:00; Stop 12/23/17 at 12:00 Simethicone (Phazyme Chew) 125 mg ONCE ONCE PO Last administered on 12/20/17at 23:26; Start 12/20/17 at 21:45; Stop 12/20/17 at 21:46; Status DC Lactated Ringer's 1,000 ml @ 30 mls/hr Q24H PRN IV SEE LABEL COMMENTS; Start at 03:30; Stop 12/24/17 at 03:29 Sodium Chloride 500 ml @ 30 mls/hr [id number] PRN IV SEE LABEL COMMENTS; Start at 03:30; Stop 12/24/17 at 03:29 Povidone Iodine (Betadine 5% Antisepsis Kit) 1 applic INSPECTOR BALANCE WHEEL MOTION PRN EACH NARE SEE LABEL COMMENTS; Start 12/21/17 at 03:30; Stop 12/24/17 at 03:29 Chlorhexidine Gluconate (Chlorhexidine 2% Cloth) 3 pack INSPECTOR BALANCE WHEEL MOTION PRN TOPICAL SEE LABEL COMMENTS; Start 12/21/17 at 03:30; Stop 12/24/17 at 03:29 Gentamicin Sulfate (Gentamicin Inj) 160 mg STK-MED ONCE .ROUTE Last administered on 12/21/17at 12:06; Start 12/21/17 at 12:06; Stop 12/21/17 at 12:07 ; Status DC Acetaminophen 100 ml @ As Directed STK-MED ONCE IV ; Start 12/21/17 at 12:35; Stop 12/21/17 at 12:36; Status DC Cefazolin Sodium (Ancef Inj) 1,000 mg STK-MED ONCE .ROUTE Last administered on 12/21/17at 13:29; Start 12/21/17 at 13:27; Stop 12/21/17 at 13:28; Status DC Lactated Ringer's 1,000 ml @ 80 mls/hr [id number] IV ; Start 12/21/17 at 14:38 Enoxaparin Sodium (Lovenox Inj) 30 mg Q24H SQ ; Start 12/21/17 at 14:45; Status UNV Al Hydrox/Mg Hydrox/Simethicone (Mag-Al Plus Susp Liq) 30 ml Q6H PRN PO INDIGESTION; Start 12/21/17 at 14:45 A/P Problem List: (1) Tobacco abuse ICD Code: Z72.0 - Tobacco use (2) Pathological fracture, left femur, initial encounter for fracture ICD Code: M84.452A - Pathological fracture, left femur, initial encounter for fracture Status: Acute (3) Sepsis secondary to UTI ICD Code: A41.9 - Sepsis, unspecified organism; N39.0 - Urinary tract infection , site not specified Status: Acute (4) UTI (urinary tract infection) ICD Code: N39.0 - Urinary tract infection, site not specified Status: Resolved (5) Hydronephrosis, right ICD Code: N13.30 - Unspecified hydronephrosis (6) Malnutrition ICD Code: E46 - Unspecified protein-calorie malnutrition (7) Uterine cancer ICD Code: C55 - Malignant neoplasm of uterus, part unspecified Status: Chronic (8) Hypothyroidism ICD Code: E03.9 - Hypothyroidism, unspecified (9) Carcinosarcoma of uterus ICD Code: C55 - Malignant neoplasm of uterus, part unspecified Status: Acute Assessment and Plan Sepsis due to urinary tract infection continue on current antibiotics is on cefepime we will add vancomycin with pharmacy to dose Sepsis due to urinary tract infection is on cefepime and will add vancomycin with pharmacy to dose Is Pathological left femur fracture with what appears to be a lytic lesion in the mid femur --orthopedics has been counseled and will take her to surgery 12-21 History of metastatic uterine sarcoma. Pathologic fracture left femur Procedure: Open treatment intramedullary rodding of pathologic left femur fracture with stroke and treat extended trochanteric nail and proximal and distal fixation. 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
[2017-12-21] MEDS: LACTATED RINGER'S 1000 ML INJ 1,000 ML IV SCH (15:15)
[2017-12-21] MEDS ORDERED: *morphine SULFATE 4 MG/ML PERIprocedure ONLY ONE (15:28)
--- NOTE | 2017-12-21 15:43 | PD.CONS ---
Consult Service Palliative Care Consult Requested By Nabil Randle [facility] Primary Care Physician Carlos Enrique Saleh MD Reason for Consultation a. To assist with evaluation and management of symptoms including: Pain, dyspnea, anxiety b. To assist medical decision maker(s) with: better understanding of current medical conditions; weighing benefits/burdens of medical treatment options; making medical treatment decisions. HPI History of Present Illness This 57-year-old female presented to the ED on 12/19/17 with complaints of a fever. She is being followed outpatient by Dr. Clifton for known stage IV uterine carcinosarcoma. Status post radiation and surgery. She is currently on chemotherapy last chemo about a week and half ago. She reported blood transfusion 2 days ago. She also reports shortness of breath for months on home O2 since last March. She continues to smoke cigarettes. She reports onset of new severe pain in her left leg for several days it has gotten to the point she is unable to walk due to pain. She also noted swelling to her right foot in the past day or so. * CXR notes emphysematous bleb in left lung which is previously noted. Hemoglobin 10.7/hematocrit 30.7. Platelet 110. UA positive, culture pending. Femur x-ray= lytic lesion suspicious for metastatic disease. Patient was admitted for further evaluation and management, with transfer to [facility] as she may require orthopedic intervention, as well as radiation therapy consultation. Started on cefepime, vancomycin also added. Oncology Dr. Clifton also consulted. * Dr. Clifton evaluated patient 12/21: Feels new findings are almost certainly consistent with another manifestation of carcinosarcoma. Patient has agreed to surgical intervention from orthopedics, as well as subsequent palliative radiation to the area. In regards to overall treatment any additional chemotherapy is on hold at this time. Acute onset of recent fracture, possible progression of lesion is quite worrisome as she had still been on active chemotherapy. Recommends maximize symptom management and current supportive care further treatment plans dependent on clinical course. Patient also in agreement for palliative care consultation to maximize symptom control. * Orthopedic surgery evaluated patient--planned for surgical stabilization left femur with nino, IM fixation 12/21; also plan for biopsy at that time. 12/21 underwent: Open treatment intramedullary rodding of pathologic left femur fracture with stroke and treat extended trochanteric nail and proximal and distal fixation. Biopsy of the left femur. Patient reported tolerated procedure well. * Palliative care consulted to assist with clarification of goals of treatment. Patient initially off the floor still in recovery when I attempted to see here. Return to unit later in the afternoon around 1630 she had returned. Met with patient at bedside. She is very pleasant, recalls me from prior consultations back in February and March of last year. She indicates she had been doing overall okay recently, however she had sudden onset of severe hip/leg pain which limited her mobility, denied any trauma or injury, felt she knew she needed to have it checked out. She indicates most recently had been tolerating chemotherapy okay and she and oncologist felt disease process was at least controlled at that point. She continued to plan on ongoing chemotherapy as offered. She appears to have reasonable understanding of conditions, most recent intervention today. She endorses she has had chronic abdominal and back pain which was well controlled by her long-acting morphine which she was on up until this admission. [Oxycodone (Oxycodone HCl) 5 Mg Tab 5 Mg PO Q4H PRN //Morphine ER (Morphine Sulfate) 60 Mg Tab 60 Mg PO Q12HR] she indicates overall her breathing has been well controlled. She is still smoking but she is trying to cut back at times less than half pack per day. She endorses some anxiety especially with trying to quit smoking. She denies any GI complaints feels her weight has in general been stable and that the appetite stimulant has helped her keep her oral intake adequate. Upon review again of goals, current situation she understands this could be disease progression and could limit possible chance for ongoing chemotherapy. We did review CODE STATUS and resuscitation, she indicates at this time she would proceed with interventions if indicated for resuscitation. Right now she wants to try to heal and recover from a surgical standpoint, and make further decisions going forward depending on pathology and whatever other treatment options may be available for her. * Of note this patient is known to palliative care from prior consultation February -March 2017. At that time she was having significant pain secondary to large tumor. During that time palliative also offered assistance with completion of advance directive, HCS. She verbalized she would be okay if her was her legal decision maker, she declined assistance with completing advanced directives. Her goals at that time were to get her pain managed and proceed with what ever palliative treatment options were available for her cancer. She underwent radiation therapy with plans for subsequent chemotherapy. * During most recent oncology follow-up September 29, 2017: Noted to have 6 out of pain 10 across lower back. She has had ongoing fatigue, decreased appetite and generalized aching feels she is tolerating chemotherapy okay. It was also noted that previously palpable lymph nodes in left supraclavicular region had resolved. She was trying to get set up with outpatient house painting instructor, had not been able to follow-up or see them at that time. She was encouraged to follow-up with pain management as she has chronic pain issues secondary to cancer and side effects of treatment. There also may be a component of pre-existing chronic pain. She was planned for ongoing Taxol, carboplatin chemotherapy tolerating at that time. Plan for 3 additional cycles , per oncology tolerating satisfactorily with resolution of measurable disease from radiation and/or chemotherapy. Follow-up CT abdomen pelvis plan for 3 months. Function/Cognitive Trajectory No longer able to work secondary to her illness over the past several months. 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 Lives at home with her generally independent with ADLs though does require some assistance from him. No cognitive deficits reported. Current weight 46 kg; September 2017 45 kg, August 2017 41 kg, March 10, 2017 48 kg Review of Systems Constitutional: COMPLAINS OF: Pain (Abdomen/back, left leg), Generalized weakness, DENIES: Fever, Weight gain, Weight loss, Chills, Dizziness, Change in appetite Eyes: DENIES: Vision loss Ears, nose, mouth, throat: DENIES: Oral lesions, Throat pain Respiratory: COMPLAINS OF: Shortness of breath (Intermittent, chronic), DENIES : Cough, Wheezing, Hemoptysis Cardiovascular: COMPLAINS OF: Lower Extremity Edema (Slight, recent left lower extremity), DENIES: Chest pain, Palpitations, Dyspnea on Exertion, Orthopnea Gastrointestinal: COMPLAINS OF: Abdominal pain (Chronic), DENIES: Bloody stools , Constipation, Diarrhea, Nausea, Vomiting, Difficulty Swallowing, Anorexia Genitourinary: DENIES: Urinary frequency, Urinary incontinence, Dysuria Musculoskeletal: COMPLAINS OF: Joint pain (Left hip), Back pain Integumentary: DENIES: Rash Neurologic: DENIES: Headache, Localized weakness Psychiatric: COMPLAINS OF: Anxiety, DENIES: Confusion, Mood changes Past Family Social History Coded Allergies: No Known Allergies (Verified Allergy, Unknown, 12/19/17) Uncoded Allergies: ADHESIVES (Allergy, Unknown, rash, 03/14/17) Past Medical History COPD and tobacco abuse Uterine cancer History of D&C hx UTI Fracture of left femur Uterine cancer with bone metastasis history of surgical removal of a straight pin in the right foot as a child Past Surgical History Oral surgery Tonsillectomy Port placement Reported Medications Proair Hfa 8.5 GM Inh (Albuterol Sulfate) 90 Mcg/Act Aer 2 Puff INH Q4-6H PRN 108 mcg/actuation Zofran Odt (Ondansetron Odt) 4 Mg Tab 4 Mg SL Q6HR PRN Ventolin Hfa 18 GM Inh (Albuterol Sulfate) 90 Mcg/Act Aer 2 Puff INH Q4H PRN Oxycodone (Oxycodone HCl) 5 Mg Tab 5 Mg PO Q4H PRN Morphine ER (Morphine Sulfate) 60 Mg Tab 60 Mg PO Q12HR Oxygen (O2) Device Liter SHEYLA.CANULA CONTINUOUS Oxygen Concentrator Portable Gaseous 2 L/min via Nasal Canula Continuous For 99 months Protonix (Pantoprazole Sodium) 20 Mg Tab 20 Mg PO DAILY Ativan (Lorazepam) 0.5 Mg Tab 0.5 Mg PO DAILY PRN Megestrol (Megestrol Acetate) 40 Mg Tab 40 Mg PO QID Sertraline (Sertraline HCl) 25 Mg Tab 25 Mg PO DAILY . Current Medications Medications (Trade) Dose Ordered Sig/Mata Route Start Time Stop Time Status Last Admin (NS Flush) 2 ml UNSCH PRN IV FLUSH 12/19/17 18:15 12/20/17 05:29 (NS Flush) 2 ml BID IV FLUSH 12/19/17 21:00 12/21/17 07:57 (Tylenol) 650 mg Q4H PRN PO 12/19/17 18:15 (Tylenol) 650 mg Q6H PRN PO 12/19/17 18:15 ([place] 5-325 Mg) 1 tab Q4H PRN PO 12/19/17 18:15 ([place] 7.5-325 Mg) 1 tab Q4H PRN PO 12/19/17 18:15 12/21/17 09:41 (Narcan Inj) 0.4 mg UNSCH PRN IV PUSH 12/19/17 18:15 (Sharon-Colace) 1 tab BID PO 12/19/17 21:00 12/21/17 07:58 (Milk Of Magnesia Liq) 30 ml Q12H PRN PO 12/19/17 18:15 12/20/17 08:19 (Senokot) 17.2 mg Q12H PRN PO 12/19/17 18:15 (Dulcolax Supp) 10 mg DAILY PRN RECTAL 12/19/17 18:15 (Lactulose Liq) 30 ml DAILY PRN PO 12/19/17 18:15 Cefepime HCl 2000 mg/Sodium Chloride 100 ml @ 200 mls/hr Q8H IV 12/20/17 00:00 12/21/17 07:57 (Duoneb Neb) 1 ampule Q2HR NEB PRN NEB 12/19/17 18:15 12/21/17 07:52 (Morphine Inj) 2 mg Q3H PRN IV PUSH 12/20/17 01:15 12/20/17 08:20 (NS Flush) 5 ml UNSCH PRN IV FLUSH 12/20/17 03:45 (Heparin Central Flush) 250 units UNSCH PRN IV FLUSH 12/20/17 03:45 12/20/17 04:55 (Heparin Central Flush) 500 units UNSCH IV FLUSH 12/20/17 03:45 (Ativan) 0.5 mg DAILY PRN PO 12/20/17 09:00 12/21/17 07:58 (Megace) 40 mg QID PO 12/20/17 09:00 12/21/17 07:58 (Oramorph Sr) 60 mg Q12HR PO 12/20/17 09:00 12/21/17 07:58 (Zofran Odt) 4 mg Q6HR PRN SL 12/20/17 09:00 (Protonix) 20 mg DAILY PO 12/20/17 09:00 12/21/17 07:58 (Zoloft) 25 mg DAILY PO 12/20/17 09:00 12/21/17 07:58 (Duoneb Neb) 1 ampule Q4HR NEB PRN NEB 12/20/17 09:00 (Catapres) 0.1 mg Q4H PRN PO 12/20/17 09:00 (Pill Splitter) 1 ea UNSCH PRN OTHER 12/20/17 09:15 (Habitrol 14 Mg Patch.24 Hr) 1 patch DAILY T-DERMAL 12/21/17 09:00 12/21/17 10:24 Miscellaneous Information 1 DAILY T-DERMAL 12/21/17 09:00 (Toradol Inj) 15 mg Q6HR IV PUSH 12/20/17 18:00 12/23/17 12:00 12/21/17 05:01 Lactated Ringer's 1,000 ml @ 30 mls/hr Q24H PRN IV 12/21/17 03:30 12/24/17 03:29 Sodium Chloride 500 ml @ 30 mls/hr [id number] PRN IV 12/21/17 03:30 12/24/17 03:29 (Betadine 5% Antisepsis Kit) 1 applic BUSINESS APPLICATIONS ANALYST PRN EACH NARE 12/21/17 03:30 12/24/17 03:29 (Chlorhexidine 2% Cloth) 3 pack BUSINESS APPLICATIONS ANALYST PRN TOPICAL 12/21/17 03:30 12/24/17 03:29 Lactated Ringer's 1,000 ml @ 80 mls/hr [id number] IV 12/21/17 14:38 (Lovenox Inj) 30 mg Q24H SQ 12/21/17 16:00 (Mag-Al Plus Susp Liq) 30 ml Q6H PRN PO 12/21/17 14:45 Family History History of drug dependence in her brother History of asthma in her mother Tobacco abuse in the family Substance Use Tobacco: Smoking 1/2 PPD, some days a little more or less. Previously smoked more than this Alcohol: None Prescription med abuse: None Illicits: None . 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 They have been for 35 years. She is originally from [place], here with a green card and legal residents. Has lived in [place] 30+ years. Spiritual/Cultural Factors Believes in God though has no particular affiliation. During prior palliative interaction did not desire professor of public administration support or visits. Living Will: Never completed Health Care Surrogate: Never completed Durable Power of Casing Man: Never completed Ethical and Legal Issues Patient does not have advanced directives or health care surrogate designation. During prior palliative care and interaction in consultation March 2017 offered patient assistance with completion of that she did not desire to do so at that time. Per [place] statutes her would be appropriate legal proxy. Of note at that time she was assisting some in his care as he had suffered 2 strokes. Physical Exam Vital Signs Date Time Temp Pulse Resp B/P (MAP) Pulse Ox O2 Delivery O2 Flow Rate FiO2 12/21/17 08:00 97.9 86 18 96/57 (70) 95 12/21/17 07:53 94 Nasal Cannula 3.00 12/21/17 04:00 98.7 87 16 100/69 (79) 94 12/21/17 00:00 98.0 80 16 104/78 (87) 94 12/20/17 20:02 95 Nasal Cannula 3.00 12/20/17 20:00 98.3 87 16 100/66 (77) 97 12/20/17 16:39 98.4 94 22 105/76 (86) 94 12/21/17 12/22/17 19:00 07:00 Intake Total 600 ml Output Total 100 ml Balance 500 ml Other 600 ml Estimated Blood Loss 100 ml Exam CONSTITUTIONAL/GENERAL: This is an adequately nourished patient, in no apparent distress. TUBES/LINES/DRAINS: Peripheral IV upper extremity, port access right chest, nasal cannula SKIN: No jaundice, rashes, or lesions. Left lateral hip, left lower thigh with clean and dry postop dressings. Skin cool, dry. HEAD: Atraumatic. Normocephalic. EYES: Pupils equal and round and reactive. Extraocular motions intact. No scleral icterus. No injection or drainage. Fundi not examined. ENT: Hearing grossly normal. Nose without bleeding or purulent drainage. Throat without visible erythema, exudates, masses, or lesions. NECK: Trachea midline. Supple, nontender. No palpable thyroid enlargement or nodularity. CARDIOVASCULAR: Regular rate and rhythm without murmur. No JVD. Peripheral pulses symmetric. RESPIRATORY/CHEST: Symmetric, unlabored respirations. Clear,, diminished to auscultation. On 2 L. Breath sounds equal bilaterally. GASTROINTESTINAL: Abdomen slightly firm, slightly tender with palpation. Bowel sounds hypoactive. GENITOURINARY: Without palpable bladder distension. External wick catheter in place. MUSCULOSKELETAL: Extremities without clubbing, cyanosis, or edema. No joint tenderness or effusion noted. No calf tenderness. No mottling or clubbing. LYMPHATICS: No palpable cervical or supraclavicular adenopathy. NEUROLOGICAL: Awake and alert, oriented 3. Appropriate appears to have reasonable insight. Motor and sensory grossly within normal limits. Follows commands. Cognitively sharp. Moves all extremities. PSYCHIATRIC: No obvious anxiety/depression. no apparent hallucinations or other psychotic thought process. Diagnostic Tests Laboratory Laboratory Tests Test 12/19/17 16:30 12/19/17 17:19 12/20/17 04:50 12/21/17 04:30 White Blood Count 23.6 TH/MM3 (4.0-11.0) 18.0 TH/MM3 (4.0-11.0) 14.1 TH/MM3 (4.0-11.0) Red Blood Count 3.31 MIL/MM3 (4.00-5.30) 3.49 MIL/MM3 (4.00-5.30) 3.43 MIL/MM3 (4.00-5.30) Hemoglobin 10.7 GM/DL (11.6-15.3) 10.8 GM/DL (11.6-15.3) 10.6 GM/DL (11.6-15.3) Hematocrit 30.7 % (35.0-46.0) 32.9 % (35.0-46.0) 32.6 % (35.0-46.0) Mean Corpuscular Volume 92.7 FL (80.0-100.0) 94.1 FL (80.0-100.0) 95.0 FL (80.0-100.0) Mean Corpuscular Hemoglobin 32.3 PG (27.0-34.0) 30.9 PG (27.0-34.0) 31.0 PG (27.0-34.0) Mean Corpuscular Hemoglobin Concent 34.9 % (32.0-36.0) 32.8 % (32.0-36.0) 32.7 % (32.0-36.0) Red Cell Distribution Width 16.6 % (11.6-17.2) 17.1 % (11.6-17.2) 17.2 % (11.6-17.2) Platelet Count 110 TH/MM3 (150-450) 106 TH/MM3 (150-450) 107 TH/MM3 (150-450) Mean Platelet Volume 7.9 FL (7.0-11.0) 7.9 FL (7.0-11.0) 8.4 FL (7.0-11.0) Neutrophils (%) (Auto) 93.3 % (16.0-70.0) 87.7 % (16.0-70.0) 90.1 % (16.0-70.0) Lymphocytes (%) (Auto) 2.3 % (9.0-44.0) 3.9 % (9.0-44.0) 4.0 % (9.0-44.0) Monocytes (%) (Auto) 4.0 % (0.0-8.0) 8.2 % (0.0-8.0) 5.5 % (0.0-8.0) Eosinophils (%) (Auto) 0.1 % (0.0-4.0) 0.0 % (0.0-4.0) 0.1 % (0.0-4.0) Basophils (%) (Auto) 0.3 % (0.0-2.0) 0.2 % (0.0-2.0) 0.3 % (0.0-2.0) Neutrophils # (Auto) 22.1 TH/MM3 (1.8-7.7) 15.8 TH/MM3 (1.8-7.7) 12.7 TH/MM3 (1.8-7.7) Lymphocytes # (Auto) 0.5 TH/MM3 (1.0-4.8) 0.7 TH/MM3 (1.0-4.8) 0.6 TH/MM3 (1.0-4.8) Monocytes # (Auto) 0.9 TH/MM3 (0-0.9) 1.5 TH/MM3 (0-0.9) 0.8 TH/MM3 (0-0.9) Eosinophils # (Auto) 0.0 TH/MM3 (0-0.4) 0.0 TH/MM3 (0-0.4) 0.0 TH/MM3 (0-0.4) Basophils # (Auto) 0.1 TH/MM3 (0-0.2) 0.0 TH/MM3 (0-0.2) 0.0 TH/MM3 (0-0.2) CBC Comment DIFF FINAL AUTO DIFF DIFF FINAL Differential Comment FINAL DIFF MANUAL Blood Urea Nitrogen 13 MG/DL (7-18) 10 MG/DL (7-18) 16 MG/DL (7-18) Creatinine 0.43 MG/DL (0.50-1.00) 0.49 MG/DL (0.50-1.00) 0.52 MG/DL (0.50-1.00) Random Glucose 88 MG/DL (74-106) 73 MG/DL (74-106) 77 MG/DL (74-106) Total Protein 6.1 GM/DL (6.4-8.2) 6.3 GM/DL (6.4-8.2) 6.3 GM/DL (6.4-8.2) Albumin 2.7 GM/DL (3.4-5.0) 2.6 GM/DL (3.4-5.0) 2.5 GM/DL (3.4-5.0) Calcium Level 8.0 MG/DL (8.5-10.1) 8.8 MG/DL (8.5-10.1) 8.8 MG/DL (8.5-10.1) Alkaline Phosphatase 286 U/L (45-117) 272 U/L (45-117) 287 U/L (45-117) Aspartate Amino Transf (AST/SGOT) 23 U/L (15-37) 25 U/L (15-37) 25 U/L (15-37) Alanine Aminotransferase (ALT/SGPT) 35 U/L (10-53) 33 U/L (10-53) 32 U/L (10-53) Total Bilirubin 0.4 MG/DL (0.2-1.0) 0.5 MG/DL (0.2-1.0) 0.4 MG/DL (0.2-1.0) Sodium Level 134 MEQ/L (136-145) 137 MEQ/L (136-145) 134 MEQ/L (136-145) Potassium Level 4.0 MEQ/L (3.5-5.1) 3.9 MEQ/L (3.5-5.1) 4.0 MEQ/L (3.5-5.1) Chloride Level 101 MEQ/L (98-107) 101 MEQ/L (98-107) 100 MEQ/L (98-107) Carbon Dioxide Level 26.6 MEQ/L (21.0-32.0) 27.9 MEQ/L (21.0-32.0) 23.7 MEQ/L (21.0-32.0) Anion Gap 6 MEQ/L (5-15) 8 MEQ/L (5-15) 10 MEQ/L (5-15) Estimat Glomerular Filtration Rate 152 ML/MIN (>89) 131 ML/MIN (>89) 122 ML/MIN (>89) Lactic Acid Level 0.7 mmol/L (0.4-2.0) Urine Color YELLOW (YELLW/STRAW) Urine Turbidity SL CLOUDY (CLEAR) Urine pH 7.5 (5.0-8.5) Urine Specific [place] 1.015 (1.002-1.035) Urine Protein 100 mg/dL (NEG-TRACE) Urine Glucose (UA) NEG mg/dL (NEG) Urine Ketones NEG mg/dL (NEG) Urine Occult Blood LARGE (NEG) Urine Nitrite NEG (NEG) Urine Bilirubin NEG (NEG) Urine Urobilinogen 0.2 MG/DL (LESS THAN Urine Leukocyte Esterase SMALL (NEG) Urine RBC 50-99 /hpf (0-3) Urine WBC 15-19 /hpf (0-5) Urine WBC Clumps FEW (NONE) Urine Squamous Epithelial Cells 0-5 /hpf (0-5) Microscopic Urinalysis Comment CULTURE INDICATED Differential Total Cells Counted 100 Neutrophils % (Manual) 74 % (16-70) Band Neutrophils % 14 % (0-6) Lymphocytes % 4 % (9-44) Monocytes % 7 % (0-8) Neutrophils # (Manual) 16.0 TH/MM3 (1.8-7.7) Metamyelocytes 1 % (0-1) Toxic Granulation 2+ (NORMAL) Platelet Estimate LOW (NORMAL) Platelet Morphology Comment NORMAL (NORMAL) Phosphorus Level 3.7 MG/DL (2.5-4.9) Magnesium Level 2.1 MG/DL (1.5-2.5) Free Thyroxine 1.37 NG/DL (0.76-1.46) Thyroid Stimulating Hormone 3rd Gen 5.690 uIU/ML (0.358-3.740) Result Diagram: 5/31/18 0430 12/21/17 0430 Microbiology Microbiology Date/Time Source Procedure Growth Status 12/19/17 16:30 Blood Peripheral Aerobic Blood Culture - Preliminary NO GROWTH IN 2 DAYS Resulted 12/19/17 16:30 Blood Peripheral Anaerobic Blood Culture - Preliminary NO GROWTH IN 2 DAYS Resulted 12/19/17 16:25 Blood Peripheral Aerobic Blood Culture - Preliminary NO GROWTH IN 2 DAYS Resulted 12/19/17 16:25 Blood Peripheral Anaerobic Blood Culture - Preliminary NO GROWTH IN 2 DAYS Resulted 12/19/17 17:19 Urine Clean Catch Urine Culture - Final <10,000 CFU/ML MIXED GRAM POSITIVE FL... Complete Imaging Last Impressions Hip X-Ray 12/21/17 0000 Signed Impressions: CONCLUSION: Fluoroscopic images during placement of a compression pin/intramedullary nino le ft femur Femur X-Ray 12/19/17 1525 Signed Impressions: CONCLUSION: Lytic lesion as above suspicious for metastatic disease. Chest X-Ray 12/19/17 1505 Signed Impressions: CONCLUSION: 1. Large emphysematous bleb involving the left lung apex. This is unchanged fr om previous. 2. Chronic interstitial changes throughout the pulmonary parenchyma. 3. [id number] in good position. Procedures 12/21/17 Open treatment intramedullary rodding of pathologic left femur fracture with stroke and treat extended trochanteric nail and proximal and distal fixation. Biopsy of the left femur. Patient/Family Conference Family Conference Time (mins): 25 Family Conference Location: Bedside Issues Discussed: Met with patient at bedside, discussion included the following: * Palliative care role, purpose, approach * Additional medical, psychosocial, and spiritual history * Patients general health, functional status, and cognitive changes in the months leading up to the current hospitalization * Patient understanding of the current medical problems * Patient understanding of prognosis * Patients goals of care as best understood from advance directives and/or conversations and/or values * Current medical treatment options and benefits/burdens of those options; review pathology pending, chemotherapy may not be an option going forward * Legal decision maker/proxy per statutes, for assistance with completion of advance directive she declines at this time * CODE STATUS she endorses full code at this time * Questions answered to the best of my ability * Palliative care contact information provided Met with patient at bedside. She is very pleasant, recalls me from prior consultations back in February and March of last year. She indicates she had been doing overall okay recently, however she had sudden onset of severe hip/ leg pain which limited her mobility, denied any trauma or injury, felt she knew she needed to have it checked out. She indicates most recently had been tolerating chemotherapy okay and she and oncologist felt disease process was at least controlled at that point. She continued to plan on ongoing chemotherapy as offered. She appears to have reasonable understanding of conditions, most recent intervention today. She endorses she has had chronic abdominal and back pain which was well controlled by her long-acting morphine which she was on up until this admission. [Oxycodone (Oxycodone HCl) 5 Mg Tab 5 Mg PO Q4H PRN //Morphine ER (Morphine Sulfate) 60 Mg Tab 60 Mg PO Q12HR] she indicates overall her breathing has been well controlled. She is still smoking but she is trying to cut back at times less than half pack per day. She endorses some anxiety especially with trying to quit smoking. She denies any GI complaints feels her weight has in general been stable and that the appetite stimulant has helped her keep her oral intake adequate. Upon review again of goals, current situation she understands this could be disease progression and could limit possible chance for ongoing chemotherapy. We did review CODE STATUS and resuscitation, she indicates at this time she would proceed with interventions if indicated for resuscitation. Right now she wants to try to heal and recover from a surgical standpoint, and make further decisions going forward depending on pathology and whatever other treatment options may be available for her. Patient requests that I update her , called to him, voicemail left. 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 They have been for 35 years. She is originally from [place], here with a green card and legal residents. Has lived in [place] 30+ years. Spiritual: No particular anabaptism affiliation though believes in God. Previous interactions did not want professor of public administration visits Legal:Patient does not have advanced directives or health care surrogate designation. During prior palliative care and interaction in consultation March 2017 offered patient assistance with completion of that she did not desire to do so at that time. Per [place] statutes her would be appropriate legal proxy if patient incapacitated. Of note at that time she was assisting some in his care as he had suffered 2 strokes. Ethical issues impacting care: Important Contacts Nicolas Jara [phone] Friend Alyssa Larsen [phone] . . 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 At that time she had expansive tumor burden which was not able to be surgically resected, she underwent palliative radiation for tumor burden reduction, and subsequent palliative chemotherapy. Code Status: Full Code Plan Legal decision maker:Patient does not have advanced directives or health care surrogate designation. During prior palliative care and interaction in consultation March 2017 offered patient assistance with completion of that she did not desire to do so at that time. Per [place] statutes her would be appropriate legal proxy if patient incapacitated. Of note at that time she was assisting some in his care as he had suffered 2 strokes. Goals: Upon review again of goals, current situation she understands this could be disease progression and could limit possible chance for ongoing chemotherapy. We did review CODE STATUS and resuscitation, she indicates at this time she would proceed with interventions if indicated for resuscitation. Right now she wants to try to heal and recover from a surgical standpoint, and make further decisions going forward depending on pathology and whatever other treatment options may be available for her. CODE STATUS: Full code SYMPTOMS: --Pain-chronic, acute. Patient with chronic abdomen and back pain secondary to malignancy. She has new left femur pain secondary to pathologic fracture. Underwent surgical fixation today. expected to have have some component of acute pain now. Home regimen of long-acting morphine, short-acting breakthrough has been resumed. Thus far patient indicates adequate control though she is tolerant to opiates will need to continue to monitor for effectiveness may require adjustment --Anxiety-patient endorses some intermittent anxiety especially with not being able to smoke cigarettes. Currently has prn Ativan available, monitor for effectiveness, requirements. No further recommendations at this time. --Dyspnea-patient with underlying COPD, tobacco use. Home inhalers have been continued. Currently no respiratory distress or issues. Recommend close monitoring of respiratory status, continue to encourage I-S, deep breathing etc., maximize mobility when cleared by Ortho she is high risk for pulmonary complications following orthopedic surgery. Palliative care will continue to follow during hospital course as condition evolves, to assist patient/decision-maker with understanding of medical conditions, weighing benefits/burdens of treatment options, for clarification of goals of treatment. Additionally will assist with any symptoms of palliative concern Time Spent Total Floor Time (mins): 70 (Chart review, PE, discussion with primary nurse) Thank you for the opportunity to participate in the care of Ms. Jara. Attestation To help prompt me to consider important information that might be impacting today's encounter and assessment, information from prior notes written by myself or my colleagues may have been "brought forward" into today's note. My signature on this note, however, is an attestation that I personally performed the exam, history, and/or decision-making noted today, and, unless otherwise indicated, the interactions with patient, family, and staff as well as the review of records all occurred today. I also attest that the listed assessment and stated plan reflect my best clinical judgment today based on the combination of historical information, prior notes, and today's exam/ interactions. When time spent is documented, it refers only to time spent today by the signer, or if indicated, combined time spent today by collaborating physician/nurse practitioner. Kaylah Alvarado December 21, 2017 15:43
[2017-12-21] MEDS ORDERED: DO NOT ADM ANY ANTICOAGULANT DRUGS PRN (15:45)
[2017-12-21] MEDS ORDERED: ENOXAPARIN SODIUM 30 MG/0.3 ML SYRINGE SQ SCH (16:00)
[2017-12-21 16:13] LABS: HEMOGLOBIN A1C 5.5 % (4.3-6.0)
[2017-12-21] MEDS: MORPHINE SULFATE 4 MG/ML INJ IV PUSH PRN ×2 (20:22→23:32)
[2017-12-21] MEDS: ONDANSETRON ODT 4 MG TAB SL PRN (22:57)
[2017-12-22] VITALS (7 sets, daily range): BP systolic 102–158; BP diastolic 64–91; PULSE 78–115; RESP 16–22; TEMP 97.8–98.4; O2SAT 93–96
[2017-12-22] MEDS: ALUMINUM/MAGNESIUM/SIMETH 30 ML CUP PO PRN ×2 (00:21→05:52)
[2017-12-22] MEDS: LACTATED RINGER'S 1000 ML INJ 1,000 ML IV SCH ×2 (01:54→15:38)
[2017-12-22] MEDS: ACETAMINOPHEN/HYDROcodone 325 MG/7.5 MG TAB PO PRN ×4 (03:52→20:41)
[2017-12-22 04:57] LABS: AUTOMATED NEUTROPHIL # 17.9 TH/MM3 (1.8-7.7); HEMATOCRIT 26.7 % (35.0-46.0); HEMOGLOBIN 8.8 GM/DL (11.6-15.3); LYMPHOCYTE # 0.4 TH/MM3 (1.0-4.8); MEAN CELL VOLUME 93.4 FL (80.0-100.0); MEAN CORPUSCULAR HGB CONC 33.2 % (32.0-36.0); MEAN PLATELET VOLUME 8.4 FL (7.0-11.0); MONO % 2.5 % (0.0-8.0); MONOCYTE # 0.5 TH/MM3 (0-0.9); NEUT % 95.5 % (16.0-70.0); PLATELET COUNT 102 TH/MM3 (150-450); RED BLOOD COUNT 2.86 MIL/MM3 (4.00-5.30); RED CELL DISTRIBUTION WIDTH 16.3 % (11.6-17.2); WHITE BLOOD COUNT 18.8 TH/MM3 (4.0-11.0)
[2017-12-22] MEDS: MORPHINE SULFATE 4 MG/ML INJ IV PUSH PRN ×3 (04:57→18:28)
[2017-12-22] MEDS: KETOROLAC TROMETHAMINE 30 MG/ML (IVP) VIAL IV PUSH SCH ×3 (04:57→18:28)
[2017-12-22] MEDS: LEVOTHYROXINE SODIUM 25 MCG TAB PO SCH (05:07)
[2017-12-22 05:15] LABS: ALBUMIN 2.1 GM/DL (3.4-5.0); AST (GOT) 33 U/L (15-37); BICARBONATE 24.5 MEQ/L (21.0-32.0); BLOOD UREA NITROGEN 15 MG/DL (7-18); CALCIUM 8.1 MG/DL (8.5-10.1); CHLORIDE 100 MEQ/L (98-107); CREATININE 0.62 MG/DL (0.50-1.00); GLOMERULAR FILTRATION RATE 100 ML/MIN (>89); GLUCOSE,RANDOM 158 MG/DL (74-106); MAGNESIUM 1.9 MG/DL (1.5-2.5); SODIUM (NA) 134 MEQ/L (136-145)
[2017-12-22] MEDS: RESP: ALBUTEROL 2.5 MG/IPRATROPIUM 0.5 MG NEB (PRN) NEB ×6 (05:17→23:49)
[2017-12-22 05:21] LABS: ALKALINE PHOSPHATASE 259 U/L (45-117); ALT (GPT) 29 U/L (10-53); PHOSPHORUS 2.4 MG/DL (2.5-4.9); TOTAL BILIRUBIN ADULT 0.2 MG/DL (0.2-1.0); TOTAL PROTEIN 5.6 GM/DL (6.4-8.2)
[2017-12-22] MEDS: ENOXAPARIN SODIUM 30 MG/0.3 ML SYRINGE SQ SCH (05:52)
--- NOTE | 2017-12-22 07:56 | PD.ORT.PN ---
Subjective Subjective Remarks Doing well. Resting comfortably in bed. Pain in left thigh less than prior to surgery Objective Vitals Vital Signs Date Time Temp Pulse Resp B/P (MAP) Pulse Ox O2 Delivery O2 Flow Rate FiO2 12/22/17 07:39 94 Nasal Cannula 3.00 12/22/17 04:00 98.0 100 18 108/65 (79) 95 12/22/17 00:00 98.0 78 16 108/64 (79) 94 12/21/17 20:00 98.6 102 18 99/72 (81) 92 12/21/17 19:10 96 Nasal Cannula 4.00 12/21/17 16:30 98.0 87 20 107/76 (86) 91 12/21/17 16:00 97.5 98 25 106/70 (82) 95 Simple Mask 6 12/21/17 15:45 93 18 96/65 (75) 91 12/21/17 15:30 103 24 104/66 (79) 95 12/21/17 15:15 122 21 98/60 (73) 93 12/21/17 15:00 101 18 100/61 (74) 93 12/21/17 14:50 97.5 98 18 106/59 (75) 98 Simple Mask 6 12/21/17 08:00 97.9 86 18 96/57 (70) 95 I/O 12/21/17 12/21/17 12/21/17 12/22/17 12/22/17 12/22/17 07:00 15:00 23:00 07:00 15:00 23:00 Intake Total 600 ml 600 ml 480 ml Output Total 700 ml 100 ml 600 ml Balance -700 ml 500 ml 600 ml -120 ml Intake Oral 600 ml 480 ml Other 600 ml Output Urine Total 700 ml 600 ml Estimated Blood Loss 100 ml # Voids 2 3 # Bowel Movements 0 0 Result Diagram: 12/22/17 0355 12/22/17 0355 Objective Remarks Incisions is dry. No abnormal swelling. Mild distal edema, unchanged from preop. No calf tenderness. Neuro exam normal Assessment & Plan Ortho Post Op Day #: 1 Problem List: Assessment and Plan Pathologic fracture left femur. Probable metastatic uterine cancer. SURGERY: ORIF left femur fracture with extended trochanteric nail, proximal and distal interlocking: POD #1 PLAN: Stable postoperatively. Lovenox for DVT prophylaxis. Hemoglobin 8.8. Consider transfusion if it drops further. Will defer to admitting service. Partial weightbearing left leg, full weightbearing right leg. No dressing changes unless bandages saturated. Stable orthopedically Evens Mulligan MD Dec 22, 2017 07:56
[2017-12-22] MEDS: CEFEPIME INJ 2,000 MG in SODIUM CHLORIDE 0.9% INJ 100 ML IV SCH ×2 (08:42→15:49)
[2017-12-22] MEDS: REMOVE OLD PATCH T-DERMAL SCH (08:54)
[2017-12-22] MEDS: NICOTINE 14 MG/24 HR PATCH T-DERMAL SCH (08:54)
[2017-12-22] MEDS: SERTRALINE HCL 50 MG TAB PO SCH (08:54)
[2017-12-22] MEDS: MEGESTROL ACETATE 40 MG TAB PO SCH ×4 (09:00→20:40)
[2017-12-22] MEDS: SODIUM CHLORIDE 0.9% FLUSH 10 ML FLUSH IV FLUSH SCH ×2 (09:15→20:41)
[2017-12-22] MEDS: PANTOPRAZOLE SOD 20 MG DELAYED RELEASE TAB PO SCH (09:21)
[2017-12-22] MEDS: DOCUSATE SODIUM 50 MG/SENNA 8.6 MG TAB PO SCH ×3 (09:22→20:40)
[2017-12-22] MEDS: MORPHINE SULFATE 60 MG CONTROLLED RELEASE TAB PO SCH ×2 (09:23→20:41)
--- NOTE | 2017-12-22 10:42 | HHI.PR ---
Subjective Remarks Patient is a 57-year-old female initially presented to [facility] emergency department with complaint of fever. Patient has a history of stage IV uterine cancer. Patient is seeing Dr. Clifton of gynecology oncology. She is previously had chemo and radiation. Recently had chemotherapy. Last chemotherapy was about a week and half ago. Previously had blood transfusion 2 days ago. Became short of breath for several months has been on home oxygen since last March she still smokes at least a half a pack if not more a day of cigarettes. Has severe pain in her left leg for several days and has not been able to walk on left leg due to pain. Having pain in her left femur. Also noted to have some swelling in her right foot for the past day or so. Was found to have a left femur pathological fracture. Has uterine cancer with metastasis to her neck believe 12-21 Open treatment intramedullary rodding of pathologic left femur fracture with stroke and treat extended trochanteric nail and proximal and distal fixation. Biopsy of the left femur TODAY BY ORTHOPEDICS SEEN IN PACU AM LABS DW RN AND PT HYPOTHYROIDISM START LOW DOSE SYNTHROID 25MCG DAILY 12-22 HAD SURGERY YESTERDAY CONSTIPATED NEEDS SCHEDULED MEDS FOR THIS AM LABS INCREASE ACTIVITY DW RN AND PT AND CM Objective Vitals Vital Signs Date Time Temp Pulse Resp B/P (MAP) Pulse Ox O2 Delivery O2 Flow Rate FiO2 12/22/17 08:00 97.8 80 18 102/68 (79) 96 12/22/17 07:39 94 Nasal Cannula 3.00 12/22/17 04:00 98.0 100 18 108/65 (79) 95 12/22/17 00:00 98.0 78 16 108/64 (79) 94 12/21/17 20:00 98.6 102 18 99/72 (81) 92 12/21/17 19:10 96 Nasal Cannula 4.00 12/21/17 16:30 98.0 87 20 107/76 (86) 91 12/21/17 16:00 97.5 98 25 106/70 (82) 95 Simple Mask 6 12/21/17 15:45 93 18 96/65 (75) 91 12/21/17 15:30 103 24 104/66 (79) 95 12/21/17 15:15 122 21 98/60 (73) 93 12/21/17 15:00 101 18 100/61 (74) 93 12/21/17 14:50 97.5 98 18 106/59 (75) 98 Simple Mask 6 I/O 12/21/17 12/21/17 12/21/17 12/22/17 12/22/17 12/22/17 06:59 14:59 22:59 06:59 14:59 22:59 Intake Total 600 ml 600 ml 480 ml Output Total 700 ml 100 ml 600 ml Balance -700 ml 500 ml 600 ml -120 ml Intake Oral 600 ml 480 ml Other 600 ml Output Urine Total 700 ml 600 ml Estimated Blood Loss 100 ml # Voids 2 3 # Bowel Movements 0 0 Result Diagram: 12/22/17 0355 12/22/17 0355 Other Results Laboratory Tests Test 12/19/17 16:30 12/19/17 17:19 12/20/17 04:50 12/21/17 04:30 White Blood Count 23.6 TH/MM3 18.0 TH/MM3 14.1 TH/MM3 Red Blood Count 3.31 MIL/MM3 3.49 MIL/MM3 3.43 MIL/MM3 Hemoglobin 10.7 GM/DL 10.8 GM/DL 10.6 GM/DL Hematocrit 30.7 % 32.9 % 32.6 % Mean Corpuscular Volume 92.7 FL 94.1 FL 95.0 FL Mean Corpuscular Hemoglobin 32.3 PG 30.9 PG 31.0 PG Mean Corpuscular Hemoglobin Concent 34.9 % 32.8 % 32.7 % Red Cell Distribution Width 16.6 % 17.1 % 17.2 % Platelet Count 110 TH/MM3 106 TH/MM3 107 TH/MM3 Mean Platelet Volume 7.9 FL 7.9 FL 8.4 FL Neutrophils (%) (Auto) 93.3 % 87.7 % 90.1 % Lymphocytes (%) (Auto) 2.3 % 3.9 % 4.0 % Monocytes (%) (Auto) 4.0 % 8.2 % 5.5 % Eosinophils (%) (Auto) 0.1 % 0.0 % 0.1 % Basophils (%) (Auto) 0.3 % 0.2 % 0.3 % Neutrophils # (Auto) 22.1 TH/MM3 15.8 TH/MM3 12.7 TH/MM3 Lymphocytes # (Auto) 0.5 TH/MM3 0.7 TH/MM3 0.6 TH/MM3 Monocytes # (Auto) 0.9 TH/MM3 1.5 TH/MM3 0.8 TH/MM3 Eosinophils # (Auto) 0.0 TH/MM3 0.0 TH/MM3 0.0 TH/MM3 Basophils # (Auto) 0.1 TH/MM3 0.0 TH/MM3 0.0 TH/MM3 CBC Comment DIFF FINAL AUTO DIFF DIFF FINAL Differential Comment FINAL DIFF MANUAL Blood Urea Nitrogen 13 MG/DL 10 MG/DL 16 MG/DL Creatinine 0.43 MG/DL 0.49 MG/DL 0.52 MG/DL Random Glucose 88 MG/DL 73 MG/DL 77 MG/DL Total Protein 6.1 GM/DL 6.3 GM/DL 6.3 GM/DL Albumin 2.7 GM/DL 2.6 GM/DL 2.5 GM/DL Calcium Level 8.0 MG/DL 8.8 MG/DL 8.8 MG/DL Alkaline Phosphatase 286 U/L 272 U/L 287 U/L Aspartate Amino Transf (AST/SGOT) 23 U/L 25 U/L 25 U/L Alanine Aminotransferase (ALT/SGPT) 35 U/L 33 U/L 32 U/L Total Bilirubin 0.4 MG/DL 0.5 MG/DL 0.4 MG/DL Sodium Level 134 MEQ/L 137 MEQ/L 134 MEQ/L Potassium Level 4.0 MEQ/L 3.9 MEQ/L 4.0 MEQ/L Chloride Level 101 MEQ/L 101 MEQ/L 100 MEQ/L Carbon Dioxide Level 26.6 MEQ/L 27.9 MEQ/L 23.7 MEQ/L Anion Gap 6 MEQ/L 8 MEQ/L 10 MEQ/L Estimat Glomerular Filtration Rate 152 ML/MIN 131 ML/MIN 122 ML/MIN Lactic Acid Level 0.7 mmol/L Urine Color YELLOW Urine Turbidity SL CLOUDY Urine pH 7.5 Urine Specific [place] 1.015 Urine Protein 100 mg/dL Urine Glucose (UA) NEG mg/dL Urine Ketones NEG mg/dL Urine Occult Blood LARGE Urine Nitrite NEG Urine Bilirubin NEG Urine Urobilinogen 0.2 MG/DL Urine Leukocyte Esterase SMALL Urine RBC 50-99 /hpf Urine WBC 15-19 /hpf Urine WBC Clumps FEW Urine Squamous Epithelial Cells 0-5 /hpf Microscopic Urinalysis Comment CULTURE INDICATED Differential Total Cells Counted 100 Neutrophils % (Manual) 74 % Band Neutrophils % 14 % Lymphocytes % 4 % Monocytes % 7 % Neutrophils # (Manual) 16.0 TH/MM3 Metamyelocytes 1 % Toxic Granulation 2+ Platelet Estimate LOW Platelet Morphology Comment NORMAL Phosphorus Level 3.7 MG/DL Magnesium Level 2.1 MG/DL Hemoglobin A1c 5.5 % Free Thyroxine 1.37 NG/DL Thyroid Stimulating Hormone 3rd Gen 5.690 uIU/ML Test 12/22/17 03:55 White Blood Count 18.8 TH/MM3 Red Blood Count 2.86 MIL/MM3 Hemoglobin 8.8 GM/DL Hematocrit 26.7 % Mean Corpuscular Volume 93.4 FL Mean Corpuscular Hemoglobin 31.0 PG Mean Corpuscular Hemoglobin Concent 33.2 % Red Cell Distribution Width 16.3 % Platelet Count 102 TH/MM3 Mean Platelet Volume 8.4 FL Neutrophils (%) (Auto) 95.5 % Lymphocytes (%) (Auto) 2.0 % Monocytes (%) (Auto) 2.5 % Eosinophils (%) (Auto) 0.0 % Basophils (%) (Auto) 0.0 % Neutrophils # (Auto) 17.9 TH/MM3 Lymphocytes # (Auto) 0.4 TH/MM3 Monocytes # (Auto) 0.5 TH/MM3 Eosinophils # (Auto) 0.0 TH/MM3 Basophils # (Auto) 0.0 TH/MM3 CBC Comment DIFF FINAL Differential Comment Blood Urea Nitrogen 15 MG/DL Creatinine 0.62 MG/DL Random Glucose 158 MG/DL Total Protein 5.6 GM/DL Albumin 2.1 GM/DL Calcium Level 8.1 MG/DL Phosphorus Level 2.4 MG/DL Magnesium Level 1.9 MG/DL Alkaline Phosphatase 259 U/L Aspartate Amino Transf (AST/SGOT) 33 U/L Alanine Aminotransferase (ALT/SGPT) 29 U/L Total Bilirubin 0.2 MG/DL Sodium Level 134 MEQ/L Potassium Level 4.5 MEQ/L Chloride Level 100 MEQ/L Carbon Dioxide Level 24.5 MEQ/L Anion Gap 10 MEQ/L Estimat Glomerular Filtration Rate 100 ML/MIN Imaging Last Impressions Hip X-Ray 12/21/17 0000 Signed Impressions: CONCLUSION: Fluoroscopic images during placement of a compression pin/intramedullary nino le ft femur Femur X-Ray 12/19/17 1525 Signed Impressions: CONCLUSION: Lytic lesion as above suspicious for metastatic disease. Chest X-Ray 12/19/17 1505 Signed Impressions: CONCLUSION: 1. Large emphysematous bleb involving the left lung apex. This is unchanged fr om previous. 2. Chronic interstitial changes throughout the pulmonary parenchyma. 3. [id number] in good position. Objective Remarks GENERAL: This is a quite cachectic thin malnourished patient in moderate distress due to her left femur SKIN: No rashes, ecchymoses or lesions. Cool and dry. HEAD: Atraumatic. Normocephalic. No temporal or scalp tenderness. EYES: Pupils equal round and reactive. Extraocular motions intact. No scleral icterus. No injection or drainage. ENT: Nose without bleeding, purulent drainage or septal hematoma. Throat without erythema, tonsillar hypertrophy or exudate. Uvula midline. Airway patent. NECK: Trachea midline. No JVD or lymphadenopathy. Supple, nontender, no meningeal signs. CARDIOVASCULAR: Regular rate and rhythm without murmurs, gallops, or rubs. S1- S2 no S3 or S4 RESPIRATORY: Clear to auscultation. Breath sounds equal bilaterally. No wheezes , rales, or rhonchi. GASTROINTESTINAL: Abdomen soft, non-tender, nondistended. No hepato-splenomegaly , or palpable masses. No guarding. MUSCULOSKELETAL: Extremities without clubbing, cyanosis, or edema. No joint tenderness, effusion, some edema in the right lower extremity. No calf tenderness. Negative Homans sign bilaterally. Decreased range of motion of left lower extremity NEUROLOGICAL: Awake and alert. Cranial nerves II through XII intact. Motor and sensory grossly within normal limits. 4 out of 5 muscle strength in all muscle groups. Normal speech. Insight and judgment is good Mood and behavior is appropriate has generalized weakness Procedures Date of Surgery: December 21, 2017 Preoperative Diagnosis: History of metastatic uterine sarcoma. Pathologic fracture left femur Postoperative Diagnosis: Same Procedure: Open treatment intramedullary rodding of pathologic left femur fracture with stroke and treat extended trochanteric nail and proximal and distal fixation. Biopsy of the left femur Medications and IVs Current Medications Sodium Chloride 1,000 ml @ 999 mls/hr BOLUS ONCE IV Last administered on 12/19at 15:44; Start 12/19/17 at 15:45; Stop 12/19/17 at 16:45; Status DC Cefepime HCl 2000 mg/Sodium Chloride 100 ml @ 200 mls/hr ONCE ONCE IV Last administered on 12/19/17at 16:39; Start 12/19/17 at 15:45; Stop 12/19/17 at 16:14 ; Status DC Ondansetron HCl (Zofran Inj) 4 mg ONCE ONCE IV PUSH Last administered on at 16:47; Start 12/19/17 at 16:45; Stop 12/19/17 at 16:46; Status DC Morphine Sulfate (Morphine Inj) 10 mg ONCE ONCE IV PUSH Last administered on at 16:48; Start 12/19/17 at 16:45; Stop 12/19/17 at 16:46; Status DC Sodium Chloride 1,000 ml @ 999 mls/hr BOLUS ONCE IV Last administered on 12/19at 17:44; Start 12/19/17 at 17:15; Stop 12/19/17 at 18:15; Status DC Albuterol/ Ipratropium (Duoneb Neb) 1 ampule ONCE ONCE NEB Last administered on 12/19/17at 17:25; Start 12/19/17 at 17:15; Stop 12/19/17 at 17:16; Status DC Sodium Chloride (NS Flush) 2 ml UNSCH PRN IV FLUSH FLUSH AFTER USING IV ACCESS Last administered on 12/20/17at 05:29; Start 12/19/17 at 18:15 Sodium Chloride (NS Flush) 2 ml BID IV FLUSH Last administered on 12/22/17at 09: 15; Start 12/19/17 at 21:00 Acetaminophen (Tylenol) 650 mg Q4H PRN PO TEMP > 100.4; Start 12/19/17 at 18:15 Ondansetron HCl (Zofran Inj) 4 mg Q6H PRN IVP NAUSEA OR VOMITING Last administered on 12/20/17at 04:44; Start 12/19/17 at 18:15; Stop 12/20/17 at 09:02 ; Status DC Acetaminophen (Tylenol) 650 mg Q6H PRN PO PAIN SCALE 1 TO 2; Start 12/19/17 at 18:15 Acetaminophen/ Hydrocodone Bitart ([place] 5-325 Mg) 1 tab Q4H PRN PO PAIN SCALE 3 TO 5; Start 12/19/17 at 18:15 Acetaminophen/ Hydrocodone Bitart ([place] 7.5-325 Mg) 1 tab Q4H PRN PO PAIN SCALE 6 TO 10 Last administered on 12/22/17at 09:24; Start 12/19/17 at 18:15 Morphine Sulfate (Morphine Inj) 2 mg Q3H PRN IV PUSH BREAKTHROUGH PAIN Last administered on 12/19/17at 22:26; Start 12/19/17 at 18:15; Stop 12/20/17 at 01:09 ; Status DC Naloxone HCl (Narcan Inj) 0.4 mg UNSCH PRN IV PUSH SEE LABEL COMMENTS; Start at 18:15 Senna/Docusate Sodium (Sharon-Colace) 1 tab BID PO Last administered on 12/22/17at 09:22; Start 12/19/17 at 21:00 Magnesium Hydroxide (Milk Of Magnesia Liq) 30 ml Q12H PRN PO Mild constipation Last administered on 12/20/17at 08:19; Start 12/19/17 at 18:15 Sennosides (Senokot) 17.2 mg Q12H PRN PO Moderate constipation; Start 12/19/17 at 18:15 Bisacodyl (Dulcolax Supp) 10 mg DAILY PRN RECTAL SEVERE CONSITIPATION; Start at 18:15 Lactulose (Lactulose Liq) 30 ml DAILY PRN PO SEVERE CONSITIPATION; Start at 18:15 Cefepime HCl 2000 mg/Sodium Chloride 100 ml @ 200 mls/hr Q8H IV Last administered on 12/22/17at 08:42; Start 12/20/17 at 00:00 Albuterol/ Ipratropium (Duoneb Neb) 1 ampule Q2HR NEB PRN NEB SOB/WHEEZING Last administered on 12/22/17at 07:37; Start 12/19/17 at 18:15 Ondansetron HCl (Zofran Inj) 4 mg ONCE ONCE IV PUSH Last administered on at 18:42; Start 12/19/17 at 18:45; Stop 12/19/17 at 18:46; Status DC Morphine Sulfate (Morphine Inj) 10 mg ONCE ONCE IV PUSH Last administered on at 18:42; Start 12/19/17 at 18:45; Stop 12/19/17 at 18:46; Status DC Morphine Sulfate (Morphine Inj) 2 mg Q3H PRN IV PUSH BREAKTHROUGH PAIN Last administered on 12/22/17 04:57; Start 12/20/17 at 01:15 Sodium Chloride (NS Flush) 5 ml UNSCH PRN IV FLUSH SEE PROTOCOL TABLE; Start at 03:45 Heparin Sodium (Porcine) (Heparin Central Flush) 250 units UNSCH PRN IV FLUSH SEE PROTOCOL TABLE Last administered on 12/22/17 03:58; Start 12/20/17 at 03:45 Heparin Sodium (Porcine) (Heparin Central Flush) 500 units UNSCH IV FLUSH ; Start 12/20/17 at 03:45 Lorazepam (Ativan) 0.5 mg DAILY PRN PO ANXIETY AND/OR AGITATION Last administered on 12/21/17 23:24; Start 12/20/17 at 09:00 Megestrol Acetate (Megace) 40 mg QID PO Last administered on 12/22/17 09:00; Start 12/20/17 at 09:00 Morphine Sulfate (Oramorph Sr) 60 mg Q12HR PO Last administered on 12/22/17 09: 23; Start 12/20/17 at 09:00 Ondansetron HCl (Zofran Odt) 4 mg Q6HR PRN SL Nausea/Vomiting Last administered on 12/21/17 22:57; Start 12/20/17 at 09:00 Pantoprazole Sodium (Protonix) 20 mg DAILY PO Last administered on 12/22/17 09: 21; Start 12/20/17 at 09:00 Sertraline HCl (Zoloft) 25 mg DAILY PO Last administered on 12/22/17at 08:54; Start 12/20/17 at 09:00 Albuterol/ Ipratropium (Duoneb Neb) 1 ampule Q4HR NEB PRN NEB SOB/COUGH Last administered on 12/22/17 05:17; Start 12/20/17 at 09:00 Clonidine (Catapres) 0.1 mg Q4H PRN PO SBP>160, DBP>90; Start 12/20/17 at 09:00 Miscellaneous (Pill Splitter) 1 ea UNSCH PRN OTHER SEE LABEL COMMENTS; Start at 09:15 Nicotine (Habitrol 14 Mg Patch.24 Hr) 1 patch ONCE ONCE T-DERMAL Last administered on 5/30/18at 17:44; Start 12/20/17 at 12:00; Stop 12/20/17 at 12:03 ; Status DC Nicotine (Habitrol 14 Mg Patch.24 Hr) 1 patch DAILY T-DERMAL Last administered on 12/22/17at 08:54; Start 12/21/17 at 09:00 Miscellaneous Information 1 DAILY T-DERMAL Last administered on 12/22/17at 08:54 ; Start 12/21/17 at 09:00 Ketorolac Tromethamine (Toradol Inj) 15 mg Q6HR IM ; Start 12/20/17 at 18:00; Stop 12/20/17 at 18:00; Status DC Ketorolac Tromethamine (Toradol Inj) 15 mg Q6HR IV PUSH Last administered on 12/22/17at 04:57; Start 12/20/17 at 18:00; Stop 12/23/17 at 12:00 Simethicone (Phazyme Chew) 125 mg ONCE ONCE PO Last administered on 12/20/17at 23:26; Start 12/20/17 at 21:45; Stop 12/20/17 at 21:46; Status DC Lactated Ringer's 1,000 ml @ 30 mls/hr Q24H PRN IV SEE LABEL COMMENTS; Start at 03:30; Stop 12/24/17 at 03:29 Sodium Chloride 500 ml @ 30 mls/hr [id number] PRN IV SEE LABEL COMMENTS; Start at 03:30; Stop 12/24/17 at 03:29 Povidone Iodine (Betadine 5% Antisepsis Kit) 1 applic SOLUTION SPEC PRN EACH NARE SEE LABEL COMMENTS; Start 12/21/17 at 03:30; Stop 12/24/17 at 03:29 Chlorhexidine Gluconate (Chlorhexidine 2% Cloth) 3 pack SOLUTION SPEC PRN TOPICAL SEE LABEL COMMENTS; Start 12/21/17 at 03:30; Stop 12/24/17 at 03:29 Gentamicin Sulfate (Gentamicin Inj) 160 mg STK-MED ONCE .ROUTE Last administered on 12/21/17at 12:06; Start 12/21/17 at 12:06; Stop 12/21/17 at 12:07 ; Status DC Acetaminophen 100 ml @ As Directed STK-MED ONCE IV ; Start 12/21/17 at 12:35; Stop 12/21/17 at 12:36; Status DC Cefazolin Sodium (Ancef Inj) 1,000 mg STK-MED ONCE .ROUTE Last administered on 12/21/17at 13:29; Start 12/21/17 at 13:27; Stop 12/21/17 at 13:28; Status DC Lactated Ringer's 1,000 ml @ 80 mls/hr [id number] IV Last administered on at 15:15; Start 12/21/17 at 14:38 Enoxaparin Sodium (Lovenox Inj) 30 mg Q24H SQ ; Start 12/21/17 at 16:00; Stop at 17:50; Status DC Al Hydrox/Mg Hydrox/Simethicone (Mag-Al Plus Susp Liq) 30 ml Q6H PRN PO INDIGESTION Last administered on 12/22/17at 05:52; Start 12/21/17 at 14:45 Albuterol Sulfate (*ALBUTEROL NEB PERIprocedure ONLY) 2.5 mg STK-MED ONCE NEB Last administered on 12/21/17at 15:14; Start 12/21/17 at 15:14; Stop 12/21/17 at 15:15; Status DC Levothyroxine Sodium (Synthroid) 25 mcg DAILY@0600 PO Last administered on at 05:07; Start 12/22/17 at 06:00 Morphine Sulfate (*morphine INJ PERIprocedure ONLY) 4 mg STK-MED ONCE .ROUTE Last administered on 12/21/17at 15:30; Start 12/21/17 at 15:28; Stop 12/21/17 at 15:29; Status DC Miscellaneous Information ([facility] [place] [facility]) ALL NURSING DEPARTME... UNSCH PRN .XX SEE LABEL COMMENTS; Start 12/21/17 at 15:45; Stop 12/22/17 at 15: 44 Enoxaparin Sodium (Lovenox Inj) 30 mg Q24H SQ Last administered on 12/22/17at 05: 52; Start 12/22/17 at 06:00 A/P Problem List: (1) Tobacco abuse ICD Code: Z72.0 - Tobacco use (2) Pathological fracture, left femur, initial encounter for fracture ICD Code: M84.452A - Pathological fracture, left femur, initial encounter for fracture Status: Acute (3) Sepsis secondary to UTI ICD Code: A41.9 - Sepsis, unspecified organism; N39.0 - Urinary tract infection , site not specified Status: Acute (4) UTI (urinary tract infection) ICD Code: N39.0 - Urinary tract infection, site not specified Status: Resolved (5) Hydronephrosis, right ICD Code: N13.30 - Unspecified hydronephrosis (6) Malnutrition ICD Code: E46 - Unspecified protein-calorie malnutrition (7) Uterine cancer ICD Code: C55 - Malignant neoplasm of uterus, part unspecified Status: Chronic (8) Hypothyroidism ICD Code: E03.9 - Hypothyroidism, unspecified (9) Carcinosarcoma of uterus ICD Code: C55 - Malignant neoplasm of uterus, part unspecified Status: Acute Assessment and Plan Sepsis due to urinary tract infection continue on current antibiotics is on cefepime we will add vancomycin with pharmacy to dose Sepsis due to urinary tract infection is on cefepime and will add vancomycin with pharmacy to dose Is Pathological left femur fracture with what appears to be a lytic lesion in the mid femur --orthopedics has been counseled and will take her to surgery 12-21 History of metastatic uterine sarcoma. Pathologic fracture left femur Procedure: Open treatment intramedullary rodding of pathologic left femur fracture with stroke and treat extended trochanteric nail and proximal and distal fixation. 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
[2017-12-22] MEDS ORDERED: POLYETHYLENE GLYCOL 17 GM PKG PO ONE (10:45)
[2017-12-22] MEDS: ONDANSETRON ODT 4 MG TAB SL PRN (15:51)
--- NOTE | 2017-12-22 16:42 | HHI.HCPN ---
Reason for visit a. To assist with evaluation and management of symptoms including: Pain, dyspnea, anxiety b. To assist medical decision maker(s) with: better understanding of current medical conditions; weighing benefits/burdens of medical treatment options; making medical treatment decisions. Subjective/Interval History Pt seen today to follow up on comfort, goals S/p ORIF yesterday. Stable overnight. Has worked w PT, ambulated few steps w walker. WBC up slightly 18.8. Afebrile. H&H down slightly, ortho recommends med attending follow, transfuse as needed (8.8/26.7) has utilized 3 doses [place] 7.5 mg p.o., 2 doses morphine 2 mg IV. Having constipation, chronic. Regimen now in place. Patient seen in room no visitors present. Limited PE as she is currently attempting to use bedpan. She endorses feeling better overall in terms of pain than preoperatively. She indicates getting out of bed with PT was not bad, she feels pain is adequately controlled with current prn medications. She indicates constipation has long been a struggle for her (during prior admissions when palliative followed her she had significant obstruction, ileus) . She feels she may be passing some flatus now and is attempting to have a bowel movement currently. She asks about pathology of biopsy advised that generally takes several days I would not expect results until probably early next week. She indicates overall feeling pretty well breathing feels as usual no significant or worsening shortness of breath or cough. No GI complaints. She remains optimistic in terms of her orthopedic recovery. . Advance Directives Living Will: Never completed Health Care Surrogate: Never completed Durable Power of Tow Truck Operator: Never completed Objective Vital Signs Date Time Temp Pulse Resp B/P (MAP) Pulse Ox O2 Delivery O2 Flow Rate FiO2 12/22/17 12:03 96 Nasal Cannula 3.00 12/22/17 12:00 98.0 115 18 158/91 (113) 93 12/22/17 10:23 20 12/22/17 10:23 20 12/22/17 08:00 97.8 80 18 102/68 (79) 96 12/22/17 07:39 94 Nasal Cannula 3.00 12/22/17 04:00 98.0 100 18 108/65 (79) 95 12/22/17 00:00 98.0 78 16 108/64 (79) 94 12/21/17 20:00 98.6 102 18 99/72 (81) 92 12/21/17 19:10 96 Nasal Cannula 4.00 Intake & Output 12/22/17 12/22/17 07:00 19:00 Intake Total 480 ml Output Total 600 ml Balance -120 ml Intake Oral 480 ml Output Urine Total 600 ml # Voids 3 Physical Exam CONSTITUTIONAL/GENERAL: This is an adequately nourished patient, in no apparent distress. TUBES/LINES/DRAINS: Peripheral IV upper extremity, port access right chest, nasal cannula RESPIRATORY/CHEST: Symmetric, unlabored respirations. On 2 L. NEUROLOGICAL: Awake and alert, oriented 3. Appropriate, has reasonable insight. Motor and sensory grossly within normal limits. Follows commands. Cognitively sharp. Moves all extremities. PSYCHIATRIC: No obvious anxiety/depression. no apparent hallucinations or other psychotic thought process. Diagnostic Tests Laboratory Laboratory Tests Test 12/19/17 17:19 12/20/17 04:50 12/21/17 04:30 12/22/17 03:55 Urine Color YELLOW (YELLW/STRAW) Urine Turbidity SL CLOUDY (CLEAR) Urine pH 7.5 (5.0-8.5) Urine Specific [place] 1.015 (1.002-1.035) Urine Protein 100 mg/dL (NEG-TRACE) Urine Glucose (UA) NEG mg/dL (NEG) Urine Ketones NEG mg/dL (NEG) Urine Occult Blood LARGE (NEG) Urine Nitrite NEG (NEG) Urine Bilirubin NEG (NEG) Urine Urobilinogen 0.2 MG/DL (LESS THAN Urine Leukocyte Esterase SMALL (NEG) Urine RBC 50-99 /hpf (0-3) Urine WBC 15-19 /hpf (0-5) Urine WBC Clumps FEW (NONE) Urine Squamous Epithelial Cells 0-5 /hpf (0-5) Microscopic Urinalysis Comment CULTURE INDICATED White Blood Count 18.0 TH/MM3 (4.0-11.0) 14.1 TH/MM3 (4.0-11.0) 18.8 TH/MM3 (4.0-11.0) Red Blood Count 3.49 MIL/MM3 (4.00-5.30) 3.43 MIL/MM3 (4.00-5.30) 2.86 MIL/MM3 (4.00-5.30) Hemoglobin 10.8 GM/DL (11.6-15.3) 10.6 GM/DL (11.6-15.3) 8.8 GM/DL (11.6-15.3) Hematocrit 32.9 % (35.0-46.0) 32.6 % (35.0-46.0) 26.7 % (35.0-46.0) Mean Corpuscular Volume 94.1 FL (80.0-100.0) 95.0 FL (80.0-100.0) 93.4 FL (80.0-100.0) Mean Corpuscular Hemoglobin 30.9 PG (27.0-34.0) 31.0 PG (27.0-34.0) 31.0 PG (27.0-34.0) Mean Corpuscular Hemoglobin Concent 32.8 % (32.0-36.0) 32.7 % (32.0-36.0) 33.2 % (32.0-36.0) Red Cell Distribution Width 17.1 % (11.6-17.2) 17.2 % (11.6-17.2) 16.3 % (11.6-17.2) Platelet Count 106 TH/MM3 (150-450) 107 TH/MM3 (150-450) 102 TH/MM3 (150-450) Mean Platelet Volume 7.9 FL (7.0-11.0) 8.4 FL (7.0-11.0) 8.4 FL (7.0-11.0) Neutrophils (%) (Auto) 87.7 % (16.0-70.0) 90.1 % (16.0-70.0) 95.5 % (16.0-70.0) Lymphocytes (%) (Auto) 3.9 % (9.0-44.0) 4.0 % (9.0-44.0) 2.0 % (9.0-44.0) Monocytes (%) (Auto) 8.2 % (0.0-8.0) 5.5 % (0.0-8.0) 2.5 % (0.0-8.0) Eosinophils (%) (Auto) 0.0 % (0.0-4.0) 0.1 % (0.0-4.0) 0.0 % (0.0-4.0) Basophils (%) (Auto) 0.2 % (0.0-2.0) 0.3 % (0.0-2.0) 0.0 % (0.0-2.0) Neutrophils # (Auto) 15.8 TH/MM3 (1.8-7.7) 12.7 TH/MM3 (1.8-7.7) 17.9 TH/MM3 (1.8-7.7) Lymphocytes # (Auto) 0.7 TH/MM3 (1.0-4.8) 0.6 TH/MM3 (1.0-4.8) 0.4 TH/MM3 (1.0-4.8) Monocytes # (Auto) 1.5 TH/MM3 (0-0.9) 0.8 TH/MM3 (0-0.9) 0.5 TH/MM3 (0-0.9) Eosinophils # (Auto) 0.0 TH/MM3 (0-0.4) 0.0 TH/MM3 (0-0.4) 0.0 TH/MM3 (0-0.4) Basophils # (Auto) 0.0 TH/MM3 (0-0.2) 0.0 TH/MM3 (0-0.2) 0.0 TH/MM3 (0-0.2) CBC Comment AUTO DIFF DIFF FINAL DIFF FINAL Differential Total Cells Counted 100 Neutrophils % (Manual) 74 % (16-70) Band Neutrophils % 14 % (0-6) Lymphocytes % 4 % (9-44) Monocytes % 7 % (0-8) Neutrophils # (Manual) 16.0 TH/MM3 (1.8-7.7) Metamyelocytes 1 % (0-1) Differential Comment FINAL DIFF MANUAL Toxic Granulation 2+ (NORMAL) Platelet Estimate LOW (NORMAL) Platelet Morphology Comment NORMAL (NORMAL) Blood Urea Nitrogen 10 MG/DL (7-18) 16 MG/DL (7-18) 15 MG/DL (7-18) Creatinine 0.49 MG/DL (0.50-1.00) 0.52 MG/DL (0.50-1.00) 0.62 MG/DL (0.50-1.00) Random Glucose 73 MG/DL (74-106) 77 MG/DL (74-106) 158 MG/DL (74-106) Total Protein 6.3 GM/DL (6.4-8.2) 6.3 GM/DL (6.4-8.2) 5.6 GM/DL (6.4-8.2) Albumin 2.6 GM/DL (3.4-5.0) 2.5 GM/DL (3.4-5.0) 2.1 GM/DL (3.4-5.0) Calcium Level 8.8 MG/DL (8.5-10.1) 8.8 MG/DL (8.5-10.1) 8.1 MG/DL (8.5-10.1) Alkaline Phosphatase 272 U/L (45-117) 287 U/L (45-117) 259 U/L (45-117) Aspartate Amino Transf (AST/SGOT) 25 U/L (15-37) 25 U/L (15-37) 33 U/L (15-37) Alanine Aminotransferase (ALT/SGPT) 33 U/L (10-53) 32 U/L (10-53) 29 U/L (10-53) Total Bilirubin 0.5 MG/DL (0.2-1.0) 0.4 MG/DL (0.2-1.0) 0.2 MG/DL (0.2-1.0) Sodium Level 137 MEQ/L (136-145) 134 MEQ/L (136-145) 134 MEQ/L (136-145) Potassium Level 3.9 MEQ/L (3.5-5.1) 4.0 MEQ/L (3.5-5.1) 4.5 MEQ/L (3.5-5.1) Chloride Level 101 MEQ/L (98-107) 100 MEQ/L (98-107) 100 MEQ/L (98-107) Carbon Dioxide Level 27.9 MEQ/L (21.0-32.0) 23.7 MEQ/L (21.0-32.0) 24.5 MEQ/L (21.0-32.0) Anion Gap 8 MEQ/L (5-15) 10 MEQ/L (5-15) 10 MEQ/L (5-15) Estimat Glomerular Filtration Rate 131 ML/MIN (>89) 122 ML/MIN (>89) 100 ML/MIN (>89) Phosphorus Level 3.7 MG/DL (2.5-4.9) 2.4 MG/DL (2.5-4.9) Magnesium Level 2.1 MG/DL (1.5-2.5) 1.9 MG/DL (1.5-2.5) Hemoglobin A1c 5.5 % (4.3-6.0) Free Thyroxine 1.37 NG/DL (0.76-1.46) Thyroid Stimulating Hormone 3rd Gen 5.690 uIU/ML (0.358-3.740) Result Diagram: 12/22/17 0355 12/22/17 0355 Microbiology Microbiology Date/Time Source Procedure Growth Status 12/19/17 17:19 Urine Clean Catch Urine Culture - Final <10,000 CFU/ML MIXED GRAM POSITIVE FL... Complete Imaging Last Impressions Hip X-Ray 12/21/17 0000 Signed Impressions: CONCLUSION: Fluoroscopic images during placement of a compression pin/intramedullary nino le ft femur Femur X-Ray 12/19/17 1525 Signed Impressions: CONCLUSION: Lytic lesion as above suspicious for metastatic disease. Chest X-Ray 12/19/17 1505 Signed Impressions: CONCLUSION: 1. Large emphysematous bleb involving the left lung apex. This is unchanged fr om previous. 2. Chronic interstitial changes throughout the pulmonary parenchyma. 3. [id number] in good position. Procedures 12/21/17 Open treatment intramedullary rodding of pathologic left femur fracture with stroke and treat extended trochanteric nail and proximal and distal fixation. Biopsy of the left femur. 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 They have been for 35 years. She is originally from [place], here with a green card and legal residents. Has lived in [place] 30+ years. Spiritual: No particular episcopalian affiliation though believes in God. Previous interactions did not want coil connector visits Legal:Patient does not have advanced directives or health care surrogate designation. During prior palliative care and interaction in consultation March 2017 offered patient assistance with completion of that she did not desire to do so at that time. Per [place] statutes her would be appropriate legal proxy if patient incapacitated. Of note at that time she was assisting some in his care as he had suffered 2 strokes. Ethical issues impacting care: Important Contacts Nicolas Jara [phone] Friend Alyssa Larsen [phone] . . 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 At that time she had expansive tumor burden which was not able to be surgically resected, she underwent palliative radiation for tumor burden reduction, and subsequent palliative chemotherapy. Code Status: Full Code Plan Legal decision maker:Patient does not have advanced directives or health care surrogate designation. During prior palliative care and interaction in consultation March 2017 offered patient assistance with completion of that she did not desire to do so at that time. Per [place] statutes her would be appropriate legal proxy if patient incapacitated. Of note at that time she was assisting some in his care as he had suffered 2 strokes. Goals: Upon review again of goals, current situation she understands this could be disease progression and could limit possible chance for ongoing chemotherapy. We did review CODE STATUS and resuscitation, she indicates at this time she would proceed with interventions if indicated for resuscitation. Right now she wants to try to heal and recover from a surgical standpoint, and make further decisions going forward depending on pathology and whatever other treatment options may be available for her. CODE STATUS: Full code SYMPTOMS: --Pain-chronic, acute. Patient with chronic abdomen and back pain secondary to malignancy. She has new left femur pain secondary to pathologic fracture. Underwent surgical fixation today. expected to have have some component of acute pain now. Home regimen of long-acting morphine, short-acting breakthrough has been resumed. Thus far patient indicates adequate control though she is tolerant to opiates will need to continue to monitor for effectiveness may require adjustment --Anxiety-patient endorses some intermittent anxiety especially with not being able to smoke cigarettes. Currently has prn Ativan available, monitor for effectiveness, requirements. No further recommendations at this time. --Dyspnea-patient with underlying COPD, tobacco use. Home inhalers have been continued. Currently no respiratory distress or issues. Recommend close monitoring of respiratory status, continue to encourage I-S, deep breathing etc., maximize mobility when cleared by Ortho she is high risk for pulmonary complications following orthopedic surgery. --Chronic constipation-history of ileus, will require daily bowel regimen especially with immobility, chronic opiate use. Daily regimen now in place , prn available, will continue to monitor. In the past she did require Relistor. Palliative care will continue to follow during hospital course as condition evolves, to assist patient/decision-maker with understanding of medical conditions, weighing benefits/burdens of treatment options, for clarification of goals of treatment. Additionally will assist with any symptoms of palliative concern Time Spent Total Floor Time (mins): 15 (Chart review, limited PE, discussion with patient) Attestation To help prompt me to consider important information that might be impacting today's encounter and assessment, information from prior notes written by myself or my colleagues may have been "brought forward" into today's note. My signature on this note, however, is an attestation that I personally performed the exam, history, and/or decision-making noted today, and, unless otherwise indicated, the interactions with patient, family, and staff as well as the review of records all occurred today. I also attest that the listed assessment and stated plan reflect my best clinical judgment today based on the combination of historical information, prior notes, and today's exam/ interactions. When time spent is documented, it refers only to time spent today by the signer, or if indicated, combined time spent today by collaborating physician/nurse practitioner. Kaylah Alvarado Dec 22, 2017 16:42
[2017-12-22] MEDS: LORazepam 0.5 MG TAB PO PRN (18:35)
[2017-12-22] MEDS: guaiFENesin/CODEINE SYRUP 200 MG/20 MG/10 ML CUP PO PRN (22:38)
[2017-12-23] VITALS (8 sets, daily range): BP systolic 96–128; BP diastolic 59–75; PULSE 87–122; RESP 16–20; TEMP 97.9–98.8; O2SAT 94–98
[2017-12-23] MEDS: KETOROLAC TROMETHAMINE 30 MG/ML (IVP) VIAL IV PUSH SCH ×3 (00:29→11:10)
[2017-12-23] MEDS: ONDANSETRON ODT 4 MG TAB SL PRN ×2 (00:30→17:36)
[2017-12-23] MEDS: CEFEPIME INJ 2,000 MG in SODIUM CHLORIDE 0.9% INJ 100 ML IV SCH ×2 (00:30→08:29)
[2017-12-23] MEDS: ACETAMINOPHEN/HYDROcodone 325 MG/7.5 MG TAB PO PRN ×4 (00:30→19:50)
[2017-12-23] MEDS: LACTATED RINGER'S 1000 ML INJ 1,000 ML IV SCH ×2 (04:08→16:38)
[2017-12-23] MEDS: ENOXAPARIN SODIUM 30 MG/0.3 ML SYRINGE SQ SCH (05:38)
[2017-12-23] MEDS: LEVOTHYROXINE SODIUM 25 MCG TAB PO SCH (05:38)
[2017-12-23] MEDS: guaiFENesin/CODEINE SYRUP 200 MG/20 MG/10 ML CUP PO PRN ×2 (05:42→19:59)
[2017-12-23 05:58] LABS: AUTOMATED NEUTROPHIL # 10.9 TH/MM3 (1.8-7.7); BASOPHIL # 0.2 TH/MM3 (0-0.2); BASOPHIL % 1.4 % (0.0-2.0); HEMATOCRIT 26.2 % (35.0-46.0); HEMOGLOBIN 8.6 GM/DL (11.6-15.3); LYMPH % 4.4 % (9.0-44.0); LYMPHOCYTE # 0.5 TH/MM3 (1.0-4.8); MEAN CELL VOLUME 94.2 FL (80.0-100.0); MEAN CORPUSCULAR HEMOGLOBIN 31.1 PG (27.0-34.0); MONOCYTE # 0.5 TH/MM3 (0-0.9); NEUT % 90.2 % (16.0-70.0); PLATELET COUNT 110 TH/MM3 (150-450); RED BLOOD COUNT 2.78 MIL/MM3 (4.00-5.30); RED CELL DISTRIBUTION WIDTH 16.4 % (11.6-17.2); WHITE BLOOD COUNT 12.1 TH/MM3 (4.0-11.0)
[2017-12-23 06:26] LABS: ALBUMIN 2.5 GM/DL (3.4-5.0); AST (GOT) 26 U/L (15-37); BICARBONATE 27.4 MEQ/L (21.0-32.0); BLOOD UREA NITROGEN 14 MG/DL (7-18); CALCIUM 8.5 MG/DL (8.5-10.1); CHLORIDE 102 MEQ/L (98-107); CREATININE 0.65 MG/DL (0.50-1.00); GLOMERULAR FILTRATION RATE 95 ML/MIN (>89); GLUCOSE,RANDOM 97 MG/DL (74-106); MAGNESIUM 2.1 MG/DL (1.5-2.5); SODIUM (NA) 136 MEQ/L (136-145)
[2017-12-23 06:27] LABS: ALT (GPT) 34 U/L (10-53); PHOSPHORUS 2.6 MG/DL (2.5-4.9)
[2017-12-23 06:29] LABS: ALKALINE PHOSPHATASE 305 U/L (45-117); TOTAL BILIRUBIN ADULT 0.4 MG/DL (0.2-1.0); TOTAL PROTEIN 6.1 GM/DL (6.4-8.2)
--- NOTE | 2017-12-23 06:55 | HHI.PR ---
Subjective . c/o pain c/w chronic underlying problem, and recent surgery. Improved with medication. baseline fatigue, sob with activity Objective . afeb, vss alert, nad abd non-tender, non-acute ext surgical sites clean, dry Assessment/Plan . post-op doing well overall without significant change cpm, maximize palliative efforts, supportive care anticipate xrt to left femur this forthcoming week. Kaylah Clifton MD Dec 23, 2017 06:55
[2017-12-23] MEDS: RESP: ALBUTEROL 2.5 MG/IPRATROPIUM 0.5 MG NEB (PRN) NEB ×5 (07:23→23:15)
[2017-12-23] MEDS ORDERED: MAGNESIUM CITRATE SOLN 300 ML BTL PO PRN (07:30)
[2017-12-23] MEDS: SERTRALINE HCL 50 MG TAB PO SCH (08:29)
[2017-12-23] MEDS: DOCUSATE SODIUM 50 MG/SENNA 8.6 MG TAB PO SCH ×2 (08:29→19:50)
[2017-12-23] MEDS: SODIUM CHLORIDE 0.9% FLUSH 10 ML FLUSH IV FLUSH SCH ×2 (08:29→19:51)
[2017-12-23] MEDS: NICOTINE 14 MG/24 HR PATCH T-DERMAL SCH (08:29)
[2017-12-23] MEDS: MEGESTROL ACETATE 40 MG TAB PO SCH ×4 (08:30→19:50)
[2017-12-23] MEDS: POLYETHYLENE GLYCOL 17 GM PKG PO SCH (08:30)
[2017-12-23] MEDS: REMOVE OLD PATCH T-DERMAL SCH (08:30)
[2017-12-23] MEDS: PANTOPRAZOLE SOD 20 MG DELAYED RELEASE TAB PO SCH (08:30)
[2017-12-23] MEDS: MORPHINE SULFATE 60 MG CONTROLLED RELEASE TAB PO SCH ×2 (08:30→19:50)
--- NOTE | 2017-12-23 08:40 | PD.ORT.PN ---
Subjective Subjective Remarks Doing well. Resting comfortably in bed. Pain in left thigh less than prior to surgery Objective Vitals Vital Signs Date Time Temp Pulse Resp B/P (MAP) Pulse Ox O2 Delivery O2 Flow Rate FiO2 12/23/17 07:23 96 Nasal Cannula 4.00 12/23/17 04:00 98.4 100 20 128/70 (89) 94 12/23/17 00:37 98.2 104 20 121/75 (90) 95 12/22/17 20:52 95 Nasal Cannula 4.00 12/22/17 20:42 98.4 103 22 103/70 (81) 96 12/22/17 20:40 95 Nasal Cannula 4.00 12/22/17 19:28 18 12/22/17 18:33 20 12/22/17 16:47 18 12/22/17 16:00 93 Nasal Cannula 4.00 12/22/17 12:03 96 Nasal Cannula 3.00 12/22/17 12:00 98.0 115 18 158/91 (113) 93 12/22/17 12:00 98.3 102 20 106/66 (79) 94 12/22/17 10:23 20 I/O 12/22/17 12/22/17 12/22/17 12/23/17 12/23/17 12/23/17 07:00 15:00 23:00 07:00 15:00 23:00 Intake Total 480 ml 1020 ml 240 ml Output Total 600 ml 1000 ml 950 ml Balance -120 ml 20 ml -710 ml Intake Oral 480 ml 1020 ml 240 ml Output Urine Total 600 ml 1000 ml 950 ml # Voids 3 # Bowel Movements 1 Result Diagram: 12/23/17 0545 12/23/17 0545 Objective Remarks Incisions is dry. No abnormal swelling. Mild distal edema, unchanged from preop. No calf tenderness. Neuro exam normal Assessment & Plan Assessment and Plan Pathologic fracture left femur. Probable metastatic uterine cancer. SURGERY: ORIF left femur fracture with extended trochanteric nail, proximal and distal interlocking: POD #2 PLAN: Stable postoperatively. Lovenox for DVT prophylaxis. Partial weightbearing left leg, full weightbearing right leg. No dressing changes unless bandages saturated. Stable orthopedically for discharge when arrangements have been made. At this point, I will see her in follow-up in the office at 2 weeks after surgery Evens Mulligan MD Dec 23, 2017 08:40
--- NOTE | 2017-12-23 08:52 | HHI.PR ---
Subjective Remarks Patient seen and examined. AFVSS. No acute events overnight. The patient has no new complaints. She endorses dyspnea and intermittent nausea and vomiting which is unchanged. She is tolerating PO. She had a large bowel movement this morning after being constipated for two days and now feels relieved. She endorses some pain in her left thigh but reports it is controlled with medication. Objective Vital Signs Date Time Temp Pulse Resp B/P (MAP) Pulse Ox O2 Delivery O2 Flow Rate FiO2 12/23/17 07:23 96 Nasal Cannula 4.00 12/23/17 04:00 98.4 100 20 128/70 (89) 94 12/23/17 00:37 98.2 104 20 121/75 (90) 95 12/22/17 20:52 95 Nasal Cannula 4.00 12/22/17 20:42 98.4 103 22 103/70 (81) 96 12/22/17 20:40 95 Nasal Cannula 4.00 12/22/17 19:28 18 12/22/17 18:33 20 12/22/17 16:47 18 12/22/17 16:00 93 Nasal Cannula 4.00 12/22/17 12:03 96 Nasal Cannula 3.00 12/22/17 12:00 98.0 115 18 158/91 (113) 93 12/22/17 12:00 98.3 102 20 106/66 (79) 94 12/22/17 10:23 20 I/O 12/22/17 12/22/17 12/22/17 12/23/17 12/23/17 12/23/17 07:00 15:00 23:00 07:00 15:00 23:00 Intake Total 480 ml 1020 ml 240 ml Output Total 600 ml 1000 ml 950 ml Balance -120 ml 20 ml -710 ml Intake Oral 480 ml 1020 ml 240 ml Output Urine Total 600 ml 1000 ml 950 ml # Voids 3 # Bowel Movements 1 Result Diagram: 12/23/17 0545 12/23/17 0545 Imaging Hip X-Ray 12/21/17 0000 Signed Impressions: CONCLUSION: Fluoroscopic images during placement of a compression pin/intramedullary nino le ft femur Objective Remarks GENERAL: Chronically ill-appearing female sitting up in bed in no acute distress. SKIN: Warm and dry. HEENT: AT/NC. Pupils equal and round. MMM. HEART: Tachycardic with a regular rhythm. No appreciable murmurs. LUNGS: Diminished breath sounds with scattered expiratory wheezing. ABDOMEN: +BS, mildly firm and tender. EXTREMITIES: No LE edema. NEURO: Awake and alert. Nonfocal. A/P Assessment and Plan 57 year old female with history of uterine carcinosarcoma admitted on 12/19 for fever, weakness, and progressive left leg pain found to have a pathologic femur fracture. 1. L femur fracture - Pathologic given little to no trauma and evidence of 3.8 cm lytic lesion, likely metastatic uterine cancer - Ortho consulted, s/p ORIF with intratrochanteric nail POD2. Appreciate their intervention - Recommend partial WB LLE and FWB RLE - Rad onc consulted and patient to begin palliative radiation once post-op x 5 days - Palliative care following - Pain control - Monitoring H&H 2. Sepsis - Was started on IV cefepime on admission as she met sepsis criteria on admission (WBC>12, tachycardia, source of infection possible UTI) - Initial WBC 23.6 trending down to 12.1 this AM - U/A with small leukocyte esterase but culture with mixed loyda - Blood cultures NGTD - Discontinue cefepime as white count trending down and patient has remained afebrile - Monitor clinically for fevers, signs of infection, etc. 3. Uterine carcinosarcoma - S/P radiation and systemic chemo with Taxol and carboplatin x 6 cycles - Now with likely metastasis - Dr. Clifton following, appreciate recommendations - Continue home Megace - Palliative following 4. Hypothyroidism - TSH mildly elevated at 5.69 - Started on Synthroid 25 mcg - Will need repeat TSH in 4-6 weeks 5. Emphysema - CXR with large emphysematous bleb involving left apex, unchanged from previous study, and chronic interstitial changes - Supplemental O2 - DuoNeb PRN - Incentive spirometer 6. Depression - Continue home sertraline - Ativan PRN 7. GERD - Continue home PPI 8. Constipation - Bowel regimen DVT prophylaxis: Zhane Solitario MD Dec 23, 2017 08:51
[2017-12-23] MEDS ORDERED: BEDSIDE COMMODE1 MI1 (14:36)
--- NOTE | 2017-12-23 14:37 | HHI.FF ---
Face to Face Verification Diagnosis: (1) Pathological fracture, left femur, initial encounter for fracture (2) Uterine cancer (3) Dyspnea (4) COPD (chronic obstructive pulmonary disease) Physical Therapy Order: Evaluate and Treat, Improve ambulation, Strength and gait training Home Health Nursing Order: Nursing assessment with vital signs I have seen patient Mylene Jara on 12/23/17. My clinical findings support the need for the requested home health care services because: Patient has SOB Deconditioned w/ increased weakness High risk of falls I certify that my clinical findings support that this patient is homebound because: Hx COPD- exertion dyspnea/weakness Unsteady gait/balance Zhane Sood MD Dec 23, 2017 14:37
[2017-12-23] MEDS: MORPHINE SULFATE 4 MG/ML INJ IV PUSH PRN ×2 (15:46→21:35)
[2017-12-23] MEDS: LORazepam 0.5 MG TAB PO PRN (15:54)
[2017-12-23] MEDS: ALUMINUM/MAGNESIUM/SIMETH 30 ML CUP PO PRN (19:57)
[2017-12-24] VITALS (9 sets, daily range): BP systolic 98–130; BP diastolic 70–81; PULSE 105–114; RESP 16–20; TEMP 98–98.7; O2SAT 92–98
[2017-12-24] MEDS: guaiFENesin/CODEINE SYRUP 200 MG/20 MG/10 ML CUP PO PRN ×2 (00:06→05:11)
[2017-12-24] MEDS: ACETAMINOPHEN/HYDROcodone 325 MG/7.5 MG TAB PO PRN ×5 (00:07→20:26)
[2017-12-24] MEDS: LACTATED RINGER'S 1000 ML INJ 1,000 ML IV SCH ×2 (02:13→20:28)
[2017-12-24] MEDS: LEVOTHYROXINE SODIUM 25 MCG TAB PO SCH (05:10)
[2017-12-24] MEDS: ENOXAPARIN SODIUM 30 MG/0.3 ML SYRINGE SQ SCH (05:11)
[2017-12-24] MEDS: RESP: ALBUTEROL 2.5 MG/IPRATROPIUM 0.5 MG NEB (PRN) NEB ×6 (05:13→23:05)
[2017-12-24] MEDS: MORPHINE SULFATE 4 MG/ML INJ IV PUSH PRN ×3 (06:24→20:30)
[2017-12-24 06:54] LABS: AUTOMATED NEUTROPHIL # 10.7 TH/MM3 (1.8-7.7); BASOPHIL % 0.2 % (0.0-2.0); HEMOGLOBIN 9.3 GM/DL (11.6-15.3); LYMPH % 4.3 % (9.0-44.0); LYMPHOCYTE # 0.5 TH/MM3 (1.0-4.8); MEAN CORPUSCULAR HEMOGLOBIN 31.3 PG (27.0-34.0); MEAN CORPUSCULAR HGB CONC 33.3 % (32.0-36.0); MONO % 4.7 % (0.0-8.0); MONOCYTE # 0.6 TH/MM3 (0-0.9); NEUT % 90.8 % (16.0-70.0); PLATELET COUNT 115 TH/MM3 (150-450); RED BLOOD COUNT 2.98 MIL/MM3 (4.00-5.30); RED CELL DISTRIBUTION WIDTH 16.6 % (11.6-17.2); WHITE BLOOD COUNT 11.8 TH/MM3 (4.0-11.0)
[2017-12-24 07:13] LABS: BICARBONATE 25.9 MEQ/L (21.0-32.0); CALCIUM 8.3 MG/DL (8.5-10.1); CREATININE 0.55 MG/DL (0.50-1.00)
[2017-12-24] MEDS: MEGESTROL ACETATE 40 MG TAB PO SCH ×4 (08:06→20:26)
[2017-12-24] MEDS: DOCUSATE SODIUM 50 MG/SENNA 8.6 MG TAB PO SCH ×2 (08:06→20:26)
[2017-12-24] MEDS: PANTOPRAZOLE SOD 20 MG DELAYED RELEASE TAB PO SCH (08:06)
[2017-12-24] MEDS: SERTRALINE HCL 50 MG TAB PO SCH (08:06)
[2017-12-24] MEDS: POLYETHYLENE GLYCOL 17 GM PKG PO SCH (08:07)
[2017-12-24] MEDS: MORPHINE SULFATE 60 MG CONTROLLED RELEASE TAB PO SCH ×2 (08:07→20:26)
[2017-12-24] MEDS: NICOTINE 14 MG/24 HR PATCH T-DERMAL SCH (08:07)
[2017-12-24] MEDS: REMOVE OLD PATCH T-DERMAL SCH (08:08)
[2017-12-24] MEDS: SODIUM CHLORIDE 0.9% FLUSH 10 ML FLUSH IV FLUSH SCH ×2 (08:15→20:27)
[2017-12-24] MEDS: LORazepam 0.5 MG TAB PO PRN ×2 (08:26→20:45)
[2017-12-24] MEDS: ONDANSETRON ODT 4 MG TAB SL PRN ×2 (08:26→16:26)
[2017-12-24] MEDS ORDERED: MENTHOL LOZENGE BUCCAL PRN (14:00)
[2017-12-24] MEDS ORDERED: ALUMINUM/MAGNESIUM/SIMETH 30 ML CUP PO PRN (14:00)
--- NOTE | 2017-12-24 14:12 | HHI.PR ---
Subjective Remarks Patient seen and examined. No acute events overnight. The patient continues to have intermittent nausea and vomiting as well as some epigastric pain. She endorses diffuse abdominal cramping and feels that this is getting worse. She denies diarrhea. She has not had a bowel movement since yesterday morning. She is passing a small amount of gas. She denies chest pain. She complains of a dry mouth and cough. She states she definitely does not feel ready to go home. Objective Vital Signs Date Time Temp Pulse Resp B/P (MAP) Pulse Ox O2 Delivery O2 Flow Rate FiO2 12/24/17 12:52 98.3 114 20 116/74 (88) 93 12/24/17 08:34 96 Nasal Cannula 4.00 12/24/17 08:28 Nasal Cannula 4.00 12/24/17 08:20 98.2 110 20 130/79 (96) 93 12/24/17 05:48 98.0 110 20 124/81 (95) 96 12/24/17 05:15 92 Nasal Cannula 4.00 12/24/17 00:00 98.5 110 18 98/80 (86) 96 12/23/17 20:17 98 Nasal Cannula 5.00 12/23/17 20:00 Nasal Cannula 4.00 12/23/17 20:00 98.8 115 20 102/71 (81) 97 12/23/17 17:00 98.1 122 20 96/59 (71) 97 I/O 12/23/17 12/23/17 12/23/17 12/24/17 12/24/17 12/24/17 07:00 15:00 23:00 07:00 15:00 23:00 Intake Total 240 ml 100 ml 960 ml 660 ml Output Total 950 ml 500 ml 1000 ml Balance -710 ml 100 ml 460 ml -340 ml Intake Oral 240 ml 960 ml 660 ml IV Total 100 ml Output Urine Total 950 ml 500 ml 1000 ml # Bowel Movements 1 Result Diagram: 12/24/1752412/24/17524 Objective Remarks GENERAL: Chronically ill-appearing female sitting up in bed in no acute distress. SKIN: Warm and dry. HEENT: AT/NC. Pupils equal and round. MMM. HEART: Tachycardic with a regular rhythm. No appreciable murmurs. LUNGS: Diminished breath sounds with scattered expiratory wheezing. ABDOMEN: Hypoactive bowel sounds. Abdomen is distended, mildly firm and diffusely tender. EXTREMITIES: No LE edema. NEURO: Awake and alert. Nonfocal. A/P Problem List: (1) Pathological fracture, left femur, initial encounter for fracture ICD Code: M84.452A - Pathological fracture, left femur, initial encounter for fracture Status: Acute (2) Uterine cancer ICD Code: 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 1. Abdominal pain - Abdomen is distended and diffusely tender to palpation - Check CT abdomen/pelvis - Pain control - Antiemetics 2. L femur fracture - Pathologic given little to no trauma and evidence of 3.8 cm lytic lesion, likely metastatic uterine cancer - Ortho consulted, s/p ORIF with intratrochanteric nail POD3. Appreciate their intervention - Recommend partial WB LLE and FWB RLE - Rad onc consulted and patient to begin palliative radiation once post-op x 5 days - Palliative care following - Pain control - Monitoring H&H 3. Sepsis - Was started on IV cefepime on admission as she met sepsis criteria (WBC>12, tachycardia, source of infection possible UTI) - Initial WBC 23.6 trending down to 11.8 this AM - U/A with small leukocyte esterase but culture with mixed loyda - Blood cultures NGTD - Discontinued cefepime as white count trending down and patient has remained afebrile - Monitor clinically for fevers, signs of infection, etc. 4. Uterine carcinosarcoma - S/P radiation and systemic chemo with Taxol and carboplatin x 6 cycles - Now with likely metastasis - Dr. Clifton following, appreciate recommendations - Continue home Megace - Palliative following 5. Hypothyroidism - TSH mildly elevated at 5.69 - Started on Synthroid 25 mcg - Will need repeat TSH in 4-6 weeks 6. Emphysema - CXR with large emphysematous bleb involving left apex, unchanged from previous study, and chronic interstitial changes - Supplemental O2 - DuoNeb PRN - Incentive spirometer 7. Depression - Continue home sertraline - Ativan PRN 8. GERD - Continue home PPI - Add Maalox as needed 9. Constipation - Bowel regimen DVT prophylaxis: Lovenox Problem Qualifiers (1) Uterine cancer: Zhane Sood MD Dec 24, 2017 14:12
[2017-12-24] MEDS: ALUMINUM/MAGNESIUM/SIMETH 30 ML CUP PO PRN (20:33)
[2017-12-24] MEDS ORDERED: IOHEXOL 350 MG/ML 10 ML VIAL (for RAD DIAG) IVCONTRAST ONE (21:39)
--- NOTE | 2017-12-24 21:53 | RADRPT ---
EXAM DATE: 12/24/2017 9:41 PM EDT AGE/SEX: 57 years / Female INDICATIONS: Abdominal pain. CLINICAL DATA: This is the patient's initial encounter. Patient reports that signs and symptoms have been present for 1 day and indicates a pain score of 9/10. MEDICAL/SURGICAL HISTORY: Carcinoma, uterine. Bone METS. None. ORAL CONTRAST: No oral contrast ingested. RADIATION DOSE: 6.64 CTDI (mGy) COMPARISON: C, CT ABDOMEN & PELVIS W CONTRAST, 03/27/2017. [facility], CT ABDOMEN & PELVIS W CONTRAST, 03/18/2017. . TECHNIQUE: Multiple contiguous axial images were obtained through the abdomen and pelvis following b olus infusion of 85 ml Omnipaque 350 (iohexol) nonionic water-soluble contrast as a single exam dos e. No oral contrast ingested. Using automated exposure control and adjustment of the mA and/or kV ac cording to patient size, the radiation dose was kept as low as reasonably achievable to obtain optima l diagnostic quality images. FINDINGS: Lower Lungs: There is an 11 mm noncalcified nodule within the right lower lobe consistent with possib le metastatic focus. Underlying emphysematous changes are noted within the visualized lung bases. Liver: Liver is enlarged. Extensive metastatic disease is noted throughout the entire liver which is a new finding since previous examination in March 2017. No biliary ductal dilatation is noted. Spleen: Homogeneous density without enlargement. Pancreas: Unremarkable without mass or calcification. Kidneys: Normal in size and shape. No evidence of mass or hydronephrosis. Internal ureteral stent is noted on the right in good position. Adrenal Glands: Unremarkable. Aorta: The aorta and proximal iliac vessels are grossly unremarkable without aneurysmal dilation. Bowel/Mesentery: There is diffuse dilatation of the colon consistent with probable diffuse ileus or possible distal colonic obstruction. Fecal debris is noted within the rectosigmoid colon. Abdominal Wall: Anasarca is noted. Retroperitoneum: No evidence of adenopathy in the retrocrural, para-aortic, or deep pelvic regions. Bladder: Contours are smooth. Reproductive Organs: There is a 5.5 x 5.0 cm mass within the uterus consistent with the patient's kn own uterine carcinoma. Inguinal: The inguinal region is unremarkable without evidence of adenopathy. Bony Structures: Scattered sclerotic foci are noted within the lumbar spine and upper sacrum raising possibility of metastatic disease. Bone scan or PET/CT scan would be helpful for further evaluation if clinically indicated.. CONCLUSION: 1. Interval development of extensive metastatic disease throughout the enlarged liver. 2. 11 mm noncalcified nodule within the right lower lobe consistent with possible metastatic focus. 3. Diffuse dilatation of the colon consistent with probable diffuse ileus or possible distal colonic obstruction. Fecal debris is noted within the rectosigmoid colon. 4. Scattered sclerotic foci within the lumbar spine and upper sacrum raising the possibility of meta static disease. Bone scan or PET/CT scan would be helpful for further evaluation if clinically indica leana. 5. 5.5 x 5.0 cm uterine mass consistent with the patient's known uterine carcinoma. 6. Emphysematous changes within the lung bases. 7. Anasarca. Electronically signed by: Dev Jimneez MD 12/24/2017 9:52 PM EDT
[2017-12-24] MEDS: SODIUM CHLOR 0.9% 1000 ML INJ 1,000 ML IV SCH (23:00)
[2017-12-25] VITALS (8 sets, daily range): BP systolic 99–136; BP diastolic 62–85; PULSE 95–110; RESP 18–22; TEMP 97.8–99.7; O2SAT 93–99
[2017-12-25] MEDS: ONDANSETRON ODT 4 MG TAB SL PRN (05:37)
[2017-12-25] MEDS: LEVOTHYROXINE SODIUM 25 MCG TAB PO SCH (05:38)
[2017-12-25] MEDS: ENOXAPARIN SODIUM 30 MG/0.3 ML SYRINGE SQ SCH (05:56)
[2017-12-25] MEDS: RESP: ALBUTEROL 2.5 MG/IPRATROPIUM 0.5 MG NEB (PRN) NEB ×2 (06:07→19:53)
[2017-12-25] MEDS ORDERED: PROCHLORPERAZINE INJ 10 MG/2 ML VIAL IV PUSH ONE (07:00)
[2017-12-25] MEDS: MORPHINE SULFATE 4 MG/ML INJ IV PUSH PRN (08:01)
--- NOTE | 2017-12-25 08:01 | PD.ONC.PN ---
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 I reviewed the CT results with her and explained that a lot of the symptoms she is having is because of the amount of disease she has. I explained at this point we could not give her chemotherapy because she is too ill, chemotherapy/radiation at this point would be strictly palliative not curative. I recommended that it maybe time to talk with Hospice. Palliative Care has been following along during her admission and they can help make a transition to Hospice if that is what she chooses to peruse. Mrs. Jara was thankful for the information and is not sure what she wants to do at this time. Objective Data Date Time Temp Pulse Resp B/P (MAP) Pulse Ox O2 Delivery O2 Flow Rate FiO2 12/25/17 05:00 99.0 110 22 114/78 (90) 93 12/25/17 00:00 97.8 100 20 115/71 (86) 97 12/24/17 21:04 98 Nasal Cannula 4.00 12/24/17 20:00 Nasal Cannula 3.00 12/24/17 20:00 98.7 110 16 116/74 (88) 97 12/24/17 16:33 98.3 105 18 109/70 (83) 96 12/24/17 12:52 98.3 114 20 116/74 (88) 93 12/24/17 08:34 96 Nasal Cannula 4.00 12/24/17 08:28 Nasal Cannula 4.00 12/24/17 08:20 98.2 110 20 130/79 (96) 93 12/25/17 12/25/17 12/25/17 07:00 15:00 23:00 Intake Total 480 ml Output Total 600 ml Balance -120 ml Result Diagram: 12/24/17 0525 12/24/17 0525 Imaging Studies Last Impressions Abdomen/Pelvis CT 12/24/17 0000 Signed Impressions: CONCLUSION: 1. Interval development of extensive metastatic disease throughout the enlarge d liver. 2. 11 mm noncalcified nodule within the right lower lobe consistent with possi ble metastatic focus. 3. Diffuse dilatation of the colon consistent with probable diffuse ileus or p ossible distal colonic obstruction. Fecal debris is noted within the rectosigmo id colon. 4. Scattered sclerotic foci within the lumbar spine and upper sacrum raising t he possibility of metastatic disease. Bone scan or PET/CT scan would be helpful for further evaluation if clinically indicated. 5. 5.5 x 5.0 cm uterine mass consistent with the patient's known uterine carci noma. 6. Emphysematous changes within the lung bases. 7. Anasarca. Hip X-Ray 12/21/17 0000 Signed Impressions: CONCLUSION: Fluoroscopic images during placement of a compression pin/intramedullary nino le ft femur Femur X-Ray 12/19/17 1525 Signed Impressions: CONCLUSION: Lytic lesion as above suspicious for metastatic disease. Chest X-Ray 12/19/17 1505 Signed Impressions: CONCLUSION: 1. Large emphysematous bleb involving the left lung apex. This is unchanged fr om previous. 2. Chronic interstitial changes throughout the pulmonary parenchyma. 3. [id number] in good position. Administered Medications Medications (Trade) Dose Ordered Sig/Mata Route PRN Reason Start Time Stop Time Status Last Admin Dose Admin Sodium Chloride (NS Flush) 2 ml UNSCH PRN IV FLUSH FLUSH AFTER USING IV ACCESS 12/19/17 18:15 12/20/17 05:29 Sodium Chloride (NS Flush) 2 ml BID IV FLUSH 12/19/17 21:00 12/24/17 20:27 Acetaminophen/ Hydrocodone Bitart ([place] 7.5-325 Mg) 1 tab Q4H PRN PO PAIN SCALE 6 TO 10 12/19/17 18:15 12/24/17 20:26 Magnesium Hydroxide (Milk Of Magnesia Liq) 30 ml Q12H PRN PO Mild constipation 12/19/17 18:15 12/20/17 08:19 Bisacodyl (Dulcolax Supp) 10 mg DAILY PRN RECTAL SEVERE CONSITIPATION 12/19/17 18:15 12/24/17 23:20 Lactulose (Lactulose Liq) 30 ml DAILY PRN PO SEVERE CONSITIPATION 12/19/17 18:15 12/23/17 00:30 Albuterol/ Ipratropium (Duoneb Neb) 1 ampule Q2HR NEB PRN NEB SOB/WHEEZING 12/19/17 18:15 12/25/17 06:07 Morphine Sulfate (Morphine Inj) 2 mg Q3H PRN IV PUSH BREAKTHROUGH PAIN 12/20/17 01:15 12/24/17 20:30 Lorazepam (Ativan) 0.5 mg DAILY PRN PO ANXIETY AND/OR AGITATION 12/20/17 09:00 12/24/17 20:45 Megestrol Acetate (Megace) 40 mg QID PO 12/20/17 09:00 12/24/17 20:26 Morphine Sulfate (Oramorph Sr) 60 mg Q12HR PO 12/20/17 09:00 12/24/17 20:26 Ondansetron HCl (Zofran Odt) 4 mg Q6HR PRN SL Nausea/Vomiting 12/20/17 09:00 12/25/17 05:37 Pantoprazole Sodium (Protonix) 20 mg DAILY PO 12/20/17 09:00 12/24/17 08:06 Sertraline HCl (Zoloft) 25 mg DAILY PO 12/20/17 09:00 12/24/17 08:06 Albuterol/ Ipratropium (Duoneb Neb) 1 ampule Q4HR NEB PRN NEB SOB/COUGH 12/20/17 09:00 12/23/17 15:20 Nicotine (Habitrol 14 Mg Patch.24 Hr) 1 patch DAILY T-DERMAL 12/21/17 09:00 12/24/17 08:07 Miscellaneous Information 1 DAILY T-DERMAL 12/21/17 09:00 12/24/17 08:08 Lactated Ringer's 1,000 ml @ 80 mls/hr [id number] IV 12/21/17 14:38 12/21/17 15:15 Al Hydrox/Mg Hydrox/Simethicone (Mag-Al Plus Susp Liq) 30 ml Q6H PRN PO INDIGESTION 12/21/17 14:45 12/24/17 20:33 Levothyroxine Sodium (Synthroid) 25 mcg DAILY@0600 PO 12/22/17 06:00 12/25/17 05:38 Enoxaparin Sodium (Lovenox Inj) 30 mg Q24H SQ 12/22/17 06:00 12/24/17 05:11 Senna/Docusate Sodium (Sharon-Colace) 2 tab BID PO 12/22/17 10:45 12/24/17 20:26 Polyethylene Glycol (Miralax) 17 gm DAILY PO 12/23/17 09:00 12/24/17 08:07 Guaifenesin/ Codeine Phosphate (Robitussin Ac 200-20 Mg/10 ml Liq) 10 ml Q4H PRN PO cough 12/22/17 22:00 12/24/17 05:11 Sodium Chloride 1,000 ml @ 100 mls/hr Q10H IV 12/24/17 23:00 12/24/17 23:00 Objective Remarks GENERAL: frail and ill appearing, + vomiting SKIN: Warm and dry. HEAD: Normocephalic. EYES: No scleral icterus. No injection or drainage. NECK: Supple, CARDIOVASCULAR: Regular rate and rhythm RESPIRATORY: Breath sounds equal bilaterally. No accessory muscle use. EXTREMITIES: teds. NEUROLOGICAL: No obvious focal deficit. Awake, alert, and oriented x3. PSYCHIATRIC: Appropriate mood and affect; insight and judgment normal. 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 Attending Statement discussed with Dr. Clifton and he is in agreement Sharif Randle Dec 25, 2017 08:01
[2017-12-25] MEDS: MEGESTROL ACETATE 40 MG TAB PO SCH ×4 (09:00→20:42)
[2017-12-25] MEDS: DOCUSATE SODIUM 50 MG/SENNA 8.6 MG TAB PO SCH ×2 (09:00→20:38)
[2017-12-25] MEDS: POLYETHYLENE GLYCOL 17 GM PKG PO SCH (09:00)
[2017-12-25] MEDS: REMOVE OLD PATCH T-DERMAL SCH (09:00)
[2017-12-25] MEDS: SERTRALINE HCL 50 MG TAB PO SCH (09:45)
[2017-12-25] MEDS: MORPHINE SULFATE 60 MG CONTROLLED RELEASE TAB PO SCH ×2 (09:45→20:43)
[2017-12-25] MEDS: NICOTINE 14 MG/24 HR PATCH T-DERMAL SCH (09:45)
[2017-12-25] MEDS: SODIUM CHLORIDE 0.9% FLUSH 10 ML FLUSH IV FLUSH SCH ×2 (09:45→20:44)
[2017-12-25] MEDS: PANTOPRAZOLE SOD 20 MG DELAYED RELEASE TAB PO SCH (09:45)
[2017-12-25] MEDS: ACETAMINOPHEN/HYDROcodone 325 MG/7.5 MG TAB PO PRN ×3 (11:42→20:43)
[2017-12-25] MEDS: SODIUM CHLOR 0.9% 1000 ML INJ 1,000 ML IV SCH ×2 (11:42→19:03)
--- NOTE | 2017-12-25 15:08 | HHI.PR ---
Subjective Remarks Follow-up for ileus, abdominal pain, uterine cancer, left femur fracture. Patient is resting in bed. No fever or chills. However she complains of significant abdominal pain and distention. She had a small bowel movement this morning. Objective Vitals Vital Signs Date Time Temp Pulse Resp B/P (MAP) Pulse Ox O2 Delivery O2 Flow Rate FiO2 12/25/17 11:40 98.2 106 20 117/70 (86) 98 12/25/17 11:29 95 3.00 12/25/17 10:00 Nasal Cannula 3.00 12/25/17 08:00 98.4 105 22 136/85 (102) 95 12/25/17 05:00 99.0 110 22 114/78 (90) 93 12/25/17 00:00 97.8 100 20 115/71 (86) 97 12/24/17 21:04 98 Nasal Cannula 4.00 12/24/17 20:00 Nasal Cannula 3.00 12/24/17 20:00 98.7 110 16 116/74 (88) 97 12/24/17 16:33 98.3 105 18 109/70 (83) 96 I/O 12/24/17 12/24/17 12/24/17 12/25/17 12/25/17 12/25/17 07:00 15:00 23:00 07:00 15:00 23:00 Intake Total 660 ml 960 ml 480 ml Output Total 1000 ml 850 ml 600 ml Balance -340 ml 110 ml -120 ml Intake Oral 660 ml 960 ml 480 ml Output Urine Total 1000 ml 850 ml 600 ml # Voids 1 Result Diagram: 12/24/17 0525 12/24/17 0525 Imaging Last Impressions Abdomen/Pelvis CT 12/24/17 0000 Signed Impressions: CONCLUSION: 1. Interval development of extensive metastatic disease throughout the enlarge d liver. 2. 11 mm noncalcified nodule within the right lower lobe consistent with possi ble metastatic focus. 3. Diffuse dilatation of the colon consistent with probable diffuse ileus or p ossible distal colonic obstruction. Fecal debris is noted within the rectosigmo id colon. 4. Scattered sclerotic foci within the lumbar spine and upper sacrum raising t he possibility of metastatic disease. Bone scan or PET/CT scan would be helpful for further evaluation if clinically indicated. 5. 5.5 x 5.0 cm uterine mass consistent with the patient's known uterine carci noma. 6. Emphysematous changes within the lung bases. 7. Anasarca. Hip X-Ray 12/21/17 0000 Signed Impressions: CONCLUSION: Fluoroscopic images during placement of a compression pin/intramedullary nino le ft femur Femur X-Ray 12/19/17 1525 Signed Impressions: CONCLUSION: Lytic lesion as above suspicious for metastatic disease. Chest X-Ray 12/19/17 1505 Signed Impressions: CONCLUSION: 1. Large emphysematous bleb involving the left lung apex. This is unchanged fr om previous. 2. Chronic interstitial changes throughout the pulmonary parenchyma. 3. Dxrffe-q-Orle in good position. Objective Remarks GENERAL: Alert, oriented 3, NAD. SKIN: Warm and dry. HEAD: Normocephalic. EYES: No scleral icterus. No injection or drainage. NECK: Supple, trachea midline. No JVD or lymphadenopathy. CARDIOVASCULAR: Regular rate and rhythm without murmurs, gallops, or rubs. RESPIRATORY: Breath sounds equal bilaterally. No accessory muscle use. GASTROINTESTINAL: Abdomen somewhat firm, distended and exquisitely tender to palpation. MUSCULOSKELETAL: No cyanosis, or edema. BACK: Nontender without obvious deformity. No CVA tenderness. Procedures Date of Surgery: December 21, 2017 Preoperative Diagnosis: History of metastatic uterine sarcoma. Pathologic fracture left femur Postoperative Diagnosis: Same Procedure: Open treatment intramedullary rodding of pathologic left femur fracture with stroke and treat extended trochanteric nail and proximal and distal fixation. Biopsy of the left femur A/P Problem List: (1) Tobacco abuse ICD Code: Z72.0 - Tobacco use (2) Pathological fracture, left femur, initial encounter for fracture ICD Code: M84.452A - Pathological fracture, left femur, initial encounter for fracture Status: Acute (3) Sepsis secondary to UTI ICD Code: A41.9 - Sepsis, unspecified organism; N39.0 - Urinary tract infection , site not specified Status: Acute (4) UTI (urinary tract infection) ICD Code: N39.0 - Urinary tract infection, site not specified Status: Resolved (5) Hydronephrosis, right ICD Code: N13.30 - Unspecified hydronephrosis (6) Malnutrition ICD Code: E46 - Unspecified protein-calorie malnutrition (7) Uterine cancer ICD Code: C55 - Malignant neoplasm of uterus, part unspecified Status: Chronic (8) Hypothyroidism ICD Code: E03.9 - Hypothyroidism, unspecified (9) Carcinosarcoma of uterus ICD Code: 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 1. Abdominal pain - Abdomen is distended and diffusely tender to palpation - CT abdomen/pelvis shows significant metastasis as well as ileus. - Will consider NG tube if patient has persistent Nausea, vomiting. - Will consider Octreotide, Dexamethasone for Ileus, N/V. 2. L femur fracture - Pathologic given little to no trauma and evidence of 3.8 cm lytic lesion, likely metastatic uterine cancer - Ortho consulted, s/p ORIF with intratrochanteric nail POD3. Appreciate their intervention - Recommend partial WB LLE and FWB RLE - Rad onc consulted and patient to begin palliative radiation once post-op x 5 days - Palliative care following - Pain control - Monitoring H&H 3. Sepsis - Was started on IV cefepime on admission as she met sepsis criteria (WBC>12, tachycardia, source of infection possible UTI) - Initial WBC 23.6 trending down to 11.8 on 12/24/2017. - U/A with small leukocyte esterase but culture with mixed loyda - Blood cultures NGTD - Discontinued cefepime as white count trending down and patient has remained afebrile - Monitor clinically for fevers, signs of infection, etc. 4. Uterine carcinosarcoma - S/P radiation and systemic chemo with Taxol and carboplatin x 6 cycles - Now with likely metastasis - Dr. Clifton's team is following and has recommended hospice. - Continue home Megace - Palliative following 5. Hypothyroidism - TSH mildly elevated at 5.69 - Synthroid 25 mcg - Will need repeat TSH in 4-6 weeks post-discharge. 6. Emphysema - CXR with large emphysematous bleb involving left apex, unchanged from previous study, and chronic interstitial changes - Supplemental O2 - DuoNeb PRN - Incentive spirometer 7. Depression - Continue home sertraline - Ativan PRN 8. GERD - Continue home PPI - Add Maalox as needed 9. Constipation - Bowel regimen DVT prophylaxis: Lovenox Problem Qualifiers (1) Uterine cancer: Ahmed,Shahabuddin DO Dec 25, 2017 15:08
--- NOTE | 2017-12-25 16:49 | HHI.HCPN ---
Reason for visit a. To assist with evaluation and management of symptoms including: Pain, dyspnea, anxiety b. To assist medical decision maker(s) with: better understanding of current medical conditions; weighing benefits/burdens of medical treatment options; making medical treatment decisions. Subjective/Interval History Pt seen today to follow up on comfort/pain , goals Stable, status post femur fracture last week. 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 Pathology still pending. Labs yesterday stable, WBC 11. PT following, last week able to ambulate a few steps with walker and assist. However she refused out of bed today due to dyspnea as well as nausea and abdominal pain. She has had some constipation she received multiple pharmacological interventions--she is now had 2 bowel movements today. She is continue to utilize prns for leg pain= morphine 2 mg 1 today, 3 yesterday, 2 the day before. Hydrocodone 7.51 today, 5 yesterday, 4 the day before. prn requirements seem to be downtrending. *May consider increasing dose of long-acting scheduled morphine pending overall prn requirements in the next day or so. Patient seen today in room no visitors present no nurse arrives as I am concluding my visit. She also endorses patient seems overall much more comfortable today than in previous days. Met with patient at length at bedside. She endorses that nausea has improved throughout the course of today after her bowel movements. She endorses that she is still having intermittent cramping type abdominal pain though in general it is much better than prior to having bowel movements. Explore with her left leg pain--she endorses that leg pain overall is very well controlled and certainly feels better than it did prior to operative intervention. Gently explore with her conditions, her discussions with oncology etc. She endorses discussing liver metastasis and no further treatment options with oncology. She tells me she understands that home with hospice might be the best option for her at this time. She asks about the pathology. I reviewed with her that pathology still pending may take a couple more days though very likely is related to disease process based on other diagnostics, and clinical findings. Explore with her she may not need palliative radiation if pain continues to improve, then we can follow with oncology regarding that in the coming days. Further explore with her overall prognosis and trajectory, she asks if she is nearing the time when she will have less time left. Gently explore that she is experiencing significant disease progression despite the treatments she had been undergoing and that this will continue. Review with her the serologic/mechanical symptoms she will likely continue to experience such as constipation, nausea, abdominal discomfort secondary to tumor burden. She expresses understanding. She is appropriately tearful at times. She has family from [facility] arriving to see her this Monday, as well as Monday of next week. She plans to discuss further with her her limited options going forward. She really wants to try to be home with her for whatever days weeks or months she might have left. Gently explore with her CODE STATUS and benefits/burdens of CPR and resuscitation, limitations of. She voices understanding, and expresses that it seems like CPR would probably not help her very much at this point in her disease course. Advised that it might prolong her life however it would do nothing to correct underlying circumstances which will cause continued decline. All questions answered to the best of my ability. Supportive listening provided. Offered to call her . She indicates she has been communicating with him that he just does not like talking about this. He may begin later on an hour or so if I am available I will attempt to stop by again and see them both. She will be talking more with him and family in the coming days about the possibility of home with hospice. She is still processing information and is not ready to meet with hospice yet. . Advance Directives Living Will: Never completed Health Care Surrogate: Never completed Durable Power of Np: Never completed Objective Vital Signs Date Time Temp Pulse Resp B/P (MAP) Pulse Ox O2 Delivery O2 Flow Rate FiO2 12/25/17 15:32 98.9 95 18 99/63 (75) 94 12/25/17 11:40 98.2 106 20 117/70 (86) 98 12/25/17 11:29 95 3.00 12/25/17 10:00 Nasal Cannula 3.00 12/25/17 08:00 98.4 105 22 136/85 (102) 95 12/25/17 05:00 99.0 110 22 114/78 (90) 93 12/25/17 00:00 97.8 100 20 115/71 (86) 97 12/24/17 21:04 98 Nasal Cannula 4.00 12/24/17 20:00 Nasal Cannula 3.00 12/24/17 20:00 98.7 110 16 116/74 (88) 97 12/24/17 16:33 98.3 105 18 109/70 (83) 96 Intake & Output 12/25/17 12/25/17 07:00 19:00 Intake Total 1980 ml Output Total 250 ml 600 ml Balance -250 ml 1380 ml Intake Oral 980 ml IV Total 1000 ml Output Urine Total 250 ml 600 ml # Voids 3 Physical Exam CONSTITUTIONAL/GENERAL: This is an adequately nourished patient, in no apparent distress, pleasant, talkative TUBES/LINES/DRAINS: Peripheral IV upper extremity, port access right chest, nasal cannula RESPIRATORY/CHEST: Symmetric, unlabored respirations. On 2 L--though she is removed "for a break "during my exam. Lungs are clear, diminished. CARDIOVASCULAR: Heart regular. No murmur. Peripheral pulses palpable. No peripheral edema. ABDOMINAL: Abdomen tender, slightly firm, slightly distended to exam. Bowel sounds present. NEUROLOGICAL: Awake and alert, oriented 3. Appropriate, has reasonable insight. Motor and sensory grossly within normal limits. Follows commands. Cognitively sharp. Moves all extremities. PSYCHIATRIC: No obvious anxiety/depression. Appropriately tearful at times during discussion. No apparent hallucinations or other psychotic thought process. Diagnostic Tests Laboratory Laboratory Tests Test 12/23/17 05:45 12/24/17 05:25 White Blood Count 12.1 TH/MM3 (4.0-11.0) 11.8 TH/MM3 (4.0-11.0) Red Blood Count 2.78 MIL/MM3 (4.00-5.30) 2.98 MIL/MM3 (4.00-5.30) Hemoglobin 8.6 GM/DL (11.6-15.3) 9.3 GM/DL (11.6-15.3) Hematocrit 26.2 % (35.0-46.0) 28.0 % (35.0-46.0) Mean Corpuscular Volume 94.2 FL (80.0-100.0) 94.0 FL (80.0-100.0) Mean Corpuscular Hemoglobin 31.1 PG (27.0-34.0) 31.3 PG (27.0-34.0) Mean Corpuscular Hemoglobin Concent 33.0 % (32.0-36.0) 33.3 % (32.0-36.0) Red Cell Distribution Width 16.4 % (11.6-17.2) 16.6 % (11.6-17.2) Platelet Count 110 TH/MM3 (150-450) 115 TH/MM3 (150-450) Mean Platelet Volume 8.0 FL (7.0-11.0) 8.0 FL (7.0-11.0) Neutrophils (%) (Auto) 90.2 % (16.0-70.0) 90.8 % (16.0-70.0) Lymphocytes (%) (Auto) 4.4 % (9.0-44.0) 4.3 % (9.0-44.0) Monocytes (%) (Auto) 4.0 % (0.0-8.0) 4.7 % (0.0-8.0) Eosinophils (%) (Auto) 0.0 % (0.0-4.0) 0.0 % (0.0-4.0) Basophils (%) (Auto) 1.4 % (0.0-2.0) 0.2 % (0.0-2.0) Neutrophils # (Auto) 10.9 TH/MM3 (1.8-7.7) 10.7 TH/MM3 (1.8-7.7) Lymphocytes # (Auto) 0.5 TH/MM3 (1.0-4.8) 0.5 TH/MM3 (1.0-4.8) Monocytes # (Auto) 0.5 TH/MM3 (0-0.9) 0.6 TH/MM3 (0-0.9) Eosinophils # (Auto) 0.0 TH/MM3 (0-0.4) 0.0 TH/MM3 (0-0.4) Basophils # (Auto) 0.2 TH/MM3 (0-0.2) 0.0 TH/MM3 (0-0.2) CBC Comment DIFF FINAL DIFF FINAL Differential Comment Blood Urea Nitrogen 14 MG/DL (7-18) 14 MG/DL (7-18) Creatinine 0.65 MG/DL (0.50-1.00) 0.55 MG/DL (0.50-1.00) Random Glucose 97 MG/DL (74-106) 77 MG/DL (74-106) Total Protein 6.1 GM/DL (6.4-8.2) Albumin 2.5 GM/DL (3.4-5.0) Calcium Level 8.5 MG/DL (8.5-10.1) 8.3 MG/DL (8.5-10.1) Phosphorus Level 2.6 MG/DL (2.5-4.9) Magnesium Level 2.1 MG/DL (1.5-2.5) Alkaline Phosphatase 305 U/L (45-117) Aspartate Amino Transf (AST/SGOT) 26 U/L (15-37) Alanine Aminotransferase (ALT/SGPT) 34 U/L (10-53) Total Bilirubin 0.4 MG/DL (0.2-1.0) Sodium Level 136 MEQ/L (136-145) 135 MEQ/L (136-145) Potassium Level 4.5 MEQ/L (3.5-5.1) 4.6 MEQ/L (3.5-5.1) Chloride Level 102 MEQ/L (98-107) 100 MEQ/L (98-107) Carbon Dioxide Level 27.4 MEQ/L (21.0-32.0) 25.9 MEQ/L (21.0-32.0) Anion Gap 7 MEQ/L (5-15) 9 MEQ/L (5-15) Estimat Glomerular Filtration Rate 95 ML/MIN (>89) 115 ML/MIN (>89) Result Diagram: 12/24/17 0525 12/24/17 0525 Microbiology Microbiology Date/Time Source Procedure Growth Status 12/19/17 16:30 Blood Peripheral Aerobic Blood Culture - Final NO GROWTH IN 5 DAYS Complete 12/19/17 16:30 Blood Peripheral Anaerobic Blood Culture - Final NO GROWTH IN 5 DAYS Complete 12/19/17 17:19 Urine Clean Catch Urine Culture - Final <10,000 CFU/ML MIXED GRAM POSITIVE FL... Complete Imaging Last Impressions Abdomen/Pelvis CT 12/24/17 0000 Signed Impressions: CONCLUSION: 1. Interval development of extensive metastatic disease throughout the enlarge d liver. 2. 11 mm noncalcified nodule within the right lower lobe consistent with possi ble metastatic focus. 3. Diffuse dilatation of the colon consistent with probable diffuse ileus or p ossible distal colonic obstruction. Fecal debris is noted within the rectosigmo id colon. 4. Scattered sclerotic foci within the lumbar spine and upper sacrum raising t he possibility of metastatic disease. Bone scan or PET/CT scan would be helpful for further evaluation if clinically indicated. 5. 5.5 x 5.0 cm uterine mass consistent with the patient's known uterine carci noma. 6. Emphysematous changes within the lung bases. 7. Anasarca. Hip X-Ray 12/21/17 0000 Signed Impressions: CONCLUSION: Fluoroscopic images during placement of a compression pin/intramedullary nino le ft femur Femur X-Ray 12/19/17 1525 Signed Impressions: CONCLUSION: Lytic lesion as above suspicious for metastatic disease. Chest X-Ray 12/19/17 1505 Signed Impressions: CONCLUSION: 1. Large emphysematous bleb involving the left lung apex. This is unchanged fr om previous. 2. Chronic interstitial changes throughout the pulmonary parenchyma. 3. Kjjjjd-m-Edcu in good position. Procedures 12/21/17 Open treatment intramedullary rodding of pathologic left femur fracture with stroke and treat extended trochanteric nail and proximal and distal fixation. Biopsy of the left femur. 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 They have been for 35 years. She is originally from [place], here with a green card and legal residents. Has lived in [place] 30+ years. Spiritual: No particular denominational affiliation though believes in God. Previous interactions did not want photoradio operator visits Legal:Patient does not have advanced directives or health care surrogate designation. During prior palliative care and interaction in consultation March 2017 offered patient assistance with completion of that she did not desire to do so at that time. Per [place] statutes her would be appropriate legal proxy if patient incapacitated. Of note at that time she was assisting some in his care as he had suffered 2 strokes. Ethical issues impacting care: Important Contacts Nicolas Jara [phone] Friend Alyssa Larsen [phone] . . 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 At that time she had expansive tumor burden which was not able to be surgically resected, she underwent palliative radiation for tumor burden reduction, and subsequent palliative chemotherapy. Code Status: Full Code Plan Legal decision maker:Patient does not have advanced directives or health care surrogate designation. During prior palliative care and interaction in consultation March 2017 offered patient assistance with completion of that she did not desire to do so at that time. Per [place] statutes her would be appropriate legal proxy if patient incapacitated. Of note at that time she was assisting some in his care as he had suffered 2 strokes. Goals: Upon review again of goals, current situation, diagnostics, she understands conditions, prognosis, and very limited treatment options going forward. She is considering hospice though she is not ready to meet with them yet. She is considering CODE STATUS, DNR versus CPR. She wishes to talk further with her and family before making additional decisions. CODE STATUS: Full code SYMPTOMS: --Pain-chronic, acute. Patient with chronic abdomen and back pain secondary to malignancy. She has new left femur pain secondary to pathologic fracture. Underwent surgical fixation today. expected to have have some component of acute pain now. Home regimen of long-acting morphine, short-acting breakthrough has been resumed. Thus far patient indicates adequate control though she is tolerant to opiates. prn requirements= morphine 2 mg IV 1 today, 3 yesterday 2 the day before. Hydrocodone 7.5 mg 1 today, 5 yesterday 4 the day before that. Downtrending prn requirements; patient indicating overall effective. May require slight up titration of long-acting pending needs in the next 24 hours. Possible may still consider palliative XRT for pain to fracture site??, Defer to oncology/radiation oncology. --Anxiety-patient endorses some intermittent anxiety especially with not being able to smoke cigarettes. Currently has prn Ativan available, monitor for effectiveness, requirements. + Has nicotine patch. Has been on sertraline 25 mg, may consider up titration to 50 mg --Dyspnea-patient with underlying COPD, tobacco use. Home inhalers have been continued. Currently no respiratory distress or issues. Recommend close monitoring of respiratory status, continue to encourage I-S, deep breathing etc., maximize mobility when cleared by Ortho she is high risk for pulmonary complications following orthopedic surgery. --Chronic constipation-history of ileus, will require daily bowel regimen especially with immobility, chronic opiate use. Daily regimen now in place , prn available, will continue to monitor. In the past she did require Relistor. Today she has had significant abdominal discomfort as well as some nausea. She has had 2 bowel movements with some relief of the symptoms. She will very likely continue to experience physiological, mechanical effects and symptoms secondary to tumor burden. Palliative care will continue to follow during hospital course as condition evolves, to assist patient/decision-maker with understanding of medical conditions, weighing benefits/burdens of treatment options, for clarification of goals of treatment. Additionally will assist with any symptoms of palliative concern Time Spent Total Floor Time (mins): 45 (chart review,PE, d/w pt, d/w nurse) Attestation To help prompt me to consider important information that might be impacting today's encounter and assessment, information from prior notes written by myself or my colleagues may have been "brought forward" into today's note. My signature on this note, however, is an attestation that I personally performed the exam, history, and/or decision-making noted today, and, unless otherwise indicated, the interactions with patient, family, and staff as well as the review of records all occurred today. I also attest that the listed assessment and stated plan reflect my best clinical judgment today based on the combination of historical information, prior notes, and today's exam/ interactions. When time spent is documented, it refers only to time spent today by the signer, or if indicated, combined time spent today by collaborating physician/nurse practitioner. Kaylah Alvarado Dec 25, 2017 16:49
[2017-12-25] MEDS: LACTATED RINGER'S 1000 ML INJ 1,000 ML IV SCH (18:38)
[2017-12-26] VITALS (8 sets, daily range): BP systolic 112–135; BP diastolic 73–88; PULSE 80–97; RESP 16–18; TEMP 98.4–99.3; O2SAT 93–98
[2017-12-26] MEDS: LACTATED RINGER'S 1000 ML INJ 1,000 ML IV SCH ×2 (02:43→19:38)
[2017-12-26] MEDS: MORPHINE SULFATE 4 MG/ML INJ IV PUSH PRN ×4 (03:44→23:30)
[2017-12-26] MEDS: SODIUM CHLORIDE 0.9% FLUSH 10 ML FLUSH IV FLUSH PRN ×2 (03:49→23:30)
[2017-12-26] MEDS: SODIUM CHLOR 0.9% 1000 ML INJ 1,000 ML IV SCH ×3 (05:28→23:26)
[2017-12-26] MEDS: guaiFENesin/CODEINE SYRUP 200 MG/20 MG/10 ML CUP PO PRN ×2 (05:30→21:01)
[2017-12-26] MEDS: ACETAMINOPHEN/HYDROcodone 325 MG/7.5 MG TAB PO PRN ×4 (05:30→20:59)
[2017-12-26] MEDS: LEVOTHYROXINE SODIUM 25 MCG TAB PO SCH (05:30)
[2017-12-26] MEDS: ONDANSETRON ODT 4 MG TAB SL PRN ×2 (05:33→12:58)
[2017-12-26] MEDS: ENOXAPARIN SODIUM 30 MG/0.3 ML SYRINGE SQ SCH (05:34)
--- NOTE | 2017-12-26 07:32 | HHI.PR ---
Subjective . no new c/o except some nausea pain with adequate control minimal relief from GI/constipation symptoms Objective . no significant change in exam chronic illness, diminished performance status, nad adbominal distention, uncomfortable on palpation but non-acute right femur/hip incisions clean, dry Assessment/Plan . recurrent, metastatic stage IV uterine mmt findings of recent CT scan discussed c/w new, progressive multifocal disease progression of illness despite recent chemotherapy recommend maximum palliative efforts and hospice consult discussion, unfortunate and difficult situation again explained, she understands she remains gracious and thankful for ongoing care provided Kaylah Clifton MD Dec 26, 2017 07:32
[2017-12-26] MEDS: POLYETHYLENE GLYCOL 17 GM PKG PO SCH (08:20)
[2017-12-26] MEDS: RESP: ALBUTEROL 2.5 MG/IPRATROPIUM 0.5 MG NEB (PRN) NEB ×2 (08:34→18:38)
[2017-12-26] MEDS: HALOPERIDOL LACTATE 5 MG/ML AMP IV PRN ×2 (09:00→20:56)
[2017-12-26] MEDS: SODIUM CHLORIDE 0.9% FLUSH 10 ML FLUSH IV FLUSH SCH ×2 (09:00→20:56)
[2017-12-26] MEDS: DEXAMETHASONE SOD PHOS 4 MG/ML VIAL IV PUSH SCH ×2 (09:00→20:58)
--- NOTE | 2017-12-26 09:08 | HHI.PR ---
Subjective Remarks Follow-up for ileus, abdominal pain, uterine cancer, left femur fracture. Patient continues to have abdominal discomfort, nausea. No fever, chills. Objective Vitals Vital Signs Date Time Temp Pulse Resp B/P (MAP) Pulse Ox O2 Delivery O2 Flow Rate FiO2 12/26/17 08:34 95 Nasal Cannula 3.00 12/26/17 08:31 95 Nasal Cannula 3.00 12/26/17 08:27 98.4 91 18 121/73 (89) 95 12/26/17 03:42 98.7 89 18 127/76 (93) 97 12/26/17 00:50 99.3 97 18 112/74 (87) 97 12/25/17 20:30 Nasal Cannula 3.00 12/25/17 20:26 99.7 95 18 108/62 (77) 99 12/25/17 19:54 99 Nasal Cannula 3.00 12/25/17 15:32 98.9 95 18 99/63 (75) 94 12/25/17 11:40 98.2 106 20 117/70 (86) 98 12/25/17 11:29 95 3.00 12/25/17 10:00 Nasal Cannula 3.00 I/O 12/25/17 12/25/17 12/25/17 12/26/17 12/26/17 12/26/17 07:00 15:00 23:00 07:00 15:00 23:00 Intake Total 1480 ml 1500 ml 480 ml Output Total 600 ml 1200 ml Balance 880 ml 1500 ml -720 ml Intake Oral 480 ml 500 ml 480 ml IV Total 1000 ml 1000 ml Output Urine Total 600 ml 1200 ml # Voids 1 3 # Bowel Movements 1 Result Diagram: 12/24/17 0525 12/24/17 0525 Imaging Last Impressions Abdomen/Pelvis CT 12/24/17 0000 Signed Impressions: CONCLUSION: 1. Interval development of extensive metastatic disease throughout the enlarge d liver. 2. 11 mm noncalcified nodule within the right lower lobe consistent with possi ble metastatic focus. 3. Diffuse dilatation of the colon consistent with probable diffuse ileus or p ossible distal colonic obstruction. Fecal debris is noted within the rectosigmo id colon. 4. Scattered sclerotic foci within the lumbar spine and upper sacrum raising t he possibility of metastatic disease. Bone scan or PET/CT scan would be helpful for further evaluation if clinically indicated. 5. 5.5 x 5.0 cm uterine mass consistent with the patient's known uterine carci noma. 6. Emphysematous changes within the lung bases. 7. Anasarca. Hip X-Ray 12/21/17 0000 Signed Impressions: CONCLUSION: Fluoroscopic images during placement of a compression pin/intramedullary nino le ft femur Femur X-Ray 12/19/17 1525 Signed Impressions: CONCLUSION: Lytic lesion as above suspicious for metastatic disease. Chest X-Ray 12/19/17 1505 Signed Impressions: CONCLUSION: 1. Large emphysematous bleb involving the left lung apex. This is unchanged fr om previous. 2. Chronic interstitial changes throughout the pulmonary parenchyma. 3. Antdof-v-Coej in good position. Objective Remarks GENERAL: Alert, oriented 3, NAD. SKIN: Warm and dry. HEAD: Normocephalic. EYES: No scleral icterus. No injection or drainage. NECK: Supple, trachea midline. No JVD or lymphadenopathy. CARDIOVASCULAR: Regular rate and rhythm without murmurs, gallops, or rubs. RESPIRATORY: Breath sounds equal bilaterally. No accessory muscle use. GASTROINTESTINAL: Abdomen somewhat firm, distended and exquisitely tender to palpation. MUSCULOSKELETAL: No cyanosis, or edema. BACK: Nontender without obvious deformity. No CVA tenderness. Procedures Date of Surgery: December 21, 2017 Preoperative Diagnosis: History of metastatic uterine sarcoma. Pathologic fracture left femur Postoperative Diagnosis: Same Procedure: Open treatment intramedullary rodding of pathologic left femur fracture with stroke and treat extended trochanteric nail and proximal and distal fixation. Biopsy of the left femur A/P Problem List: (1) Tobacco abuse ICD Code: Z72.0 - Tobacco use (2) Pathological fracture, left femur, initial encounter for fracture ICD Code: M84.452A - Pathological fracture, left femur, initial encounter for fracture Status: Acute (3) Sepsis secondary to UTI ICD Code: A41.9 - Sepsis, unspecified organism; N39.0 - Urinary tract infection , site not specified Status: Acute (4) UTI (urinary tract infection) ICD Code: N39.0 - Urinary tract infection, site not specified Status: Resolved (5) Hydronephrosis, right ICD Code: N13.30 - Unspecified hydronephrosis (6) Malnutrition ICD Code: E46 - Unspecified protein-calorie malnutrition (7) Uterine cancer ICD Code: C55 - Malignant neoplasm of uterus, part unspecified Status: Chronic (8) Hypothyroidism ICD Code: E03.9 - Hypothyroidism, unspecified (9) Carcinosarcoma of uterus ICD Code: 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 1. Abdominal pain - Abdomen is distended and diffusely tender to palpation - CT abdomen/pelvis shows significant metastasis as well as ileus. - Will consider NG tube if patient has persistent Nausea, vomiting. - Will start Octreotide, Dexamethasone for Ileus - Start IV haloperidol for nausea, vomiting. 2. L femur fracture - Pathologic given little to no trauma and evidence of 3.8 cm lytic lesion, likely metastatic uterine cancer - Ortho consulted, s/p ORIF with intratrochanteric nail POD3. Appreciate their intervention - Recommend partial WB LLE and FWB RLE - Rad onc consulted - Palliative care following - Pain control 3. Sepsis - Was started on IV cefepime on admission as she met sepsis criteria (WBC>12, tachycardia, source of infection possible UTI) - Initial WBC 23.6 trending down to 11.8 on 12/24/2017. - U/A with small leukocyte esterase but culture with mixed loyda - Blood cultures NGTD - Discontinued cefepime as white count trending down and patient has remained afebrile - Monitor clinically for fevers, signs of infection, etc. 4. Uterine carcinosarcoma - S/P radiation and systemic chemo with Taxol and carboplatin x 6 cycles - Now with likely metastasis - Dr. Clifton's team is following and has recommended hospice. - Continue home Megace - Palliative following 5. Hypothyroidism - TSH mildly elevated at 5.69 - Synthroid 25 mcg - Will need repeat TSH in 4-6 weeks post-discharge. 6. Emphysema - CXR with large emphysematous bleb involving left apex, unchanged from previous study, and chronic interstitial changes - Supplemental O2 - DuoNeb PRN - Incentive spirometer 7. Depression - Continue home sertraline - Ativan PRN 8. GERD - Continue home PPI - Add Maalox as needed 9. Constipation - Bowel regimen DVT prophylaxis: Lovenox Problem Qualifiers (1) Uterine cancer: Azalea Chavarria DO Dec 26, 2017 09:08
[2017-12-26] MEDS: PANTOPRAZOLE SOD 20 MG DELAYED RELEASE TAB PO SCH (09:34)
[2017-12-26] MEDS: SERTRALINE HCL 50 MG TAB PO SCH (09:34)
[2017-12-26] MEDS: MEGESTROL ACETATE 40 MG TAB PO SCH ×4 (09:34→21:06)
[2017-12-26] MEDS: DOCUSATE SODIUM 50 MG/SENNA 8.6 MG TAB PO SCH ×2 (09:34→20:59)
[2017-12-26] MEDS: MORPHINE SULFATE 60 MG CONTROLLED RELEASE TAB PO SCH ×2 (09:35→21:06)
[2017-12-26] MEDS: REMOVE OLD PATCH T-DERMAL SCH (09:35)
[2017-12-26] MEDS: NICOTINE 14 MG/24 HR PATCH T-DERMAL SCH (09:35)
[2017-12-26] MEDS: OCTREOTIDE INJ 100 MCG/ML VIAL SQ SCH ×2 (10:28→21:03)
--- NOTE | 2017-12-26 12:25 | PD.WCN.NOT ---
Wound Consult Description: Received consult from Doctor Chavarria for Decub wound management. Communicated with: NADINE Castano [facility]/ oncology and Call placed to Doctor Azalea Chavarria Recommendation: 1.Please cleanse small partial thickness wound to R inner gluteal cleft below sacrum with normal saline and pat dry. Apply optifoam 6x6 gentle dressing covering wound and sacrum to prevent sacral pressure ulcer. Change dressing every 5 days or PRN if saturated or dislodged.Please apply skin barrier film to periwound before applying dressing 2.Please apply CIC alternating pressure pump to bed for pressure injury prevention. 3.Turn patient every 2 hours and PRN for comfort and offloading of pressure from reshma prominences. Additional Information: Patient seen on [facility]/ oncology for wound management of decub.Per patient, she is non ambulatory and uses bed silverio for toileting needs and has episodes of urinary incontinence Patient is able to turn herself with minimal assistance from automotive service writer to R side. Patient is noted with small wound to the R inner buttock, just below the sacrum. Wound measures ~0.5cm x ~1cm x ~<0.1cm. Wound margins are jagged and wound does not appear to be pressure related. Wound presents with friction and moisture etiology and is partial thickness. Sacral skin is intact and presents with blanchable erythema. Sacral reshma prominence is very prominent and due to patient's comorbidities is at risk for breakdown. Applied skin barrier film to periwound and over sacrum and covered sacrum and wound with optifoam gentle 6x6. Patient was then positioned toward her L side with pillow in place for support. Lia Cook [facility] Dec 26, 2017 12:25
[2017-12-26 23:30] LABS: BACTERIA, URINE RARE /hpf; BILIRUBIN, URINE NEG (NEG); BLOOD, URINE SMALL (NEG); GLUCOSE,URINE NEG (NEG); KETONE, URINE NEG (NEG); MUCUS URINE FEW /lpf (OCC); NITRITE,URINE NEG (NEG); SQUAMOUS EPITHELIAL CELL URINE <1 /hpf (0-5); TRANSITIONAL EPI CELLS, URINE <1 /hpf; URINE COLOR YELLOW (YELLW/STRAW); URINE LEUKOCYTE ESTERASE MOD (NEG)
[2017-12-27] VITALS (7 sets, daily range): BP systolic 135–161; BP diastolic 84–92; PULSE 91–101; RESP 16–24; TEMP 98–99; O2SAT 95–100
[2017-12-27] MEDS: ACETAMINOPHEN/HYDROcodone 325 MG/7.5 MG TAB PO PRN ×5 (01:32→17:12)
[2017-12-27] MEDS: LORazepam 0.5 MG TAB PO PRN (01:59)
[2017-12-27] MEDS: MORPHINE SULFATE 4 MG/ML INJ IV PUSH PRN ×3 (02:40→23:20)
[2017-12-27] MEDS: RESP: ALBUTEROL 2.5 MG/IPRATROPIUM 0.5 MG NEB (PRN) NEB ×4 (02:43→19:18)
[2017-12-27] MEDS: LEVOTHYROXINE SODIUM 25 MCG TAB PO SCH (05:52)
[2017-12-27] MEDS: ENOXAPARIN SODIUM 30 MG/0.3 ML SYRINGE SQ SCH (06:01)
--- NOTE | 2017-12-27 08:01 | RADRPT ---
EXAM DATE: 12/27/2017 7:42 AM EDT AGE/SEX: 57 years / Female INDICATIONS: Increased Distention. CLINICAL DATA: This is the patient's subsequent encounter. Patient reports that signs and symptoms h ave been present for 3 days and indicates a pain score of 10/10. MEDICAL/SURGICAL HISTORY: . Uterine cancer mets to neck. Chemotherapy . Infusaport. COMPARISON: [facility] [place], ABDOMEN KUB ONLY, 04/07/2017. . FINDINGS: Mild to moderate gaseous distention seen of multiple colonic loops in an appearance suggesting nonme chanical obstruction. I don't see any significant small bowel distention. No free air demonstrated. Right ureteral stent again noted. CONCLUSION: Mild to moderate gaseous distention of colon typical of a adynamic ileus/nonmechanical obstruction. N o free air. Right ureteral stent again demonstrated. Electronically signed by: Mateo Costa MD 12/27/2017 8:00 AM EDT
[2017-12-27] MEDS: LACTATED RINGER'S 1000 ML INJ 1,000 ML IV SCH ×2 (08:08→20:38)
[2017-12-27] MEDS: DOCUSATE SODIUM 50 MG/SENNA 8.6 MG TAB PO SCH ×2 (08:32→20:17)
[2017-12-27] MEDS: MEGESTROL ACETATE 40 MG TAB PO SCH ×4 (08:33→20:16)
[2017-12-27] MEDS: PANTOPRAZOLE SOD 20 MG DELAYED RELEASE TAB PO SCH (08:33)
[2017-12-27] MEDS: MORPHINE SULFATE 60 MG CONTROLLED RELEASE TAB PO SCH ×2 (08:33→20:16)
[2017-12-27] MEDS: SERTRALINE HCL 50 MG TAB PO SCH (08:33)
[2017-12-27] MEDS: cloNIDine HCL 0.1 MG TAB PO PRN (08:34)
[2017-12-27] MEDS: OCTREOTIDE INJ 100 MCG/ML VIAL SQ SCH ×2 (08:38→20:17)
--- NOTE | 2017-12-27 08:54 | HHI.PR ---
Subjective Remarks Follow-up for ileus, abdominal pain, uterine cancer, left femur fracture. Pt continues to have abdominal pain. Tolerating some food/liquid. She is having bowel movements. No fever, chills. Objective Vitals Vital Signs Date Time Temp Pulse Resp B/P (MAP) Pulse Ox O2 Delivery O2 Flow Rate FiO2 12/27/17 08:39 98 Nasal Cannula 3.00 12/27/17 08:02 98.1 96 24 161/91 (114) 95 12/27/17 04:31 99.0 95 16 142/84 (103) 97 12/26/17 23:22 98.6 93 16 135/88 (104) 93 12/26/17 21:54 Nasal Cannula 3.00 12/26/17 20:55 Nasal Cannula 3.00 12/26/17 20:51 98.8 80 16 128/81 (97) 98 12/26/17 15:40 98.6 89 18 120/79 (93) 97 12/26/17 12:00 99.0 89 18 120/78 (92) 95 I/O 12/26/17 12/26/17 12/26/17 12/27/17 12/27/17 12/27/17 07:00 15:00 23:00 07:00 15:00 23:00 Intake Total 480 ml 1360 ml 1360 ml Output Total 1200 ml 900 ml 400 ml Balance -720 ml 460 ml 960 ml Intake Oral 480 ml 1360 ml 360 ml IV Total 1000 ml Output Urine Total 1200 ml 900 ml 400 ml # Bowel Movements 1 Result Diagram: 12/24/17 0525 12/24/17 0525 Objective Remarks GENERAL: Alert, oriented 3, NAD. SKIN: Warm and dry. HEAD: Normocephalic. EYES: No scleral icterus. No injection or drainage. NECK: Supple, trachea midline. No JVD or lymphadenopathy. CARDIOVASCULAR: Regular rate and rhythm without murmurs, gallops, or rubs. RESPIRATORY: Breath sounds equal bilaterally. No accessory muscle use. GASTROINTESTINAL: Abdomen somewhat firm, distended and exquisitely tender to palpation. MUSCULOSKELETAL: No cyanosis, or edema. BACK: Nontender without obvious deformity. No CVA tenderness. Procedures Date of Surgery: December 21, 2017 Preoperative Diagnosis: History of metastatic uterine sarcoma. Pathologic fracture left femur Postoperative Diagnosis: Same Procedure: Open treatment intramedullary rodding of pathologic left femur fracture with stroke and treat extended trochanteric nail and proximal and distal fixation. Biopsy of the left femur A/P Problem List: (1) Tobacco abuse ICD Code: Z72.0 - Tobacco use (2) Pathological fracture, left femur, initial encounter for fracture ICD Code: M84.452A - Pathological fracture, left femur, initial encounter for fracture Status: Acute (3) Sepsis secondary to UTI ICD Code: A41.9 - Sepsis, unspecified organism; N39.0 - Urinary tract infection , site not specified Status: Acute (4) UTI (urinary tract infection) ICD Code: N39.0 - Urinary tract infection, site not specified Status: Resolved (5) Hydronephrosis, right ICD Code: N13.30 - Unspecified hydronephrosis (6) Malnutrition ICD Code: E46 - Unspecified protein-calorie malnutrition (7) Uterine cancer ICD Code: C55 - Malignant neoplasm of uterus, part unspecified Status: Chronic (8) Hypothyroidism ICD Code: E03.9 - Hypothyroidism, unspecified (9) Carcinosarcoma of uterus ICD Code: 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 1. Abdominal pain - Abdomen is distended and diffusely tender to palpation - CT abdomen/pelvis shows significant metastasis as well as ileus. - Will consider NG tube if patient has persistent Nausea, vomiting. - Will continue Octreotide, Dexamethasone for Ileus - IV haloperidol for nausea, vomiting. 2. L femur fracture - Pathologic given little to no trauma and evidence of 3.8 cm lytic lesion, likely metastatic uterine cancer - Ortho consulted, s/p ORIF with intratrochanteric nail POD3. Appreciate their intervention - Recommend partial WB LLE and FWB RLE - Rad onc consulted - Palliative care following - Pain control 3. Sepsis - Was started on IV cefepime on admission as she met sepsis criteria (WBC>12, tachycardia, source of infection possible UTI) - Initial WBC 23.6 trending down to 11.8 on 12/24/2017. - U/A with small leukocyte esterase but culture with mixed loyda - Blood cultures NGTD - Discontinued cefepime as white count trending down and patient has remained afebrile - Monitor clinically for fevers, signs of infection, etc. 4. Uterine carcinosarcoma - S/P radiation and systemic chemo with Taxol and carboplatin x 6 cycles - Now with likely metastasis - Dr. Clifton's team is following and has recommended hospice. - Continue home Megace - Palliative following 5. Hypothyroidism - TSH mildly elevated at 5.69 - Synthroid 25 mcg - Will need repeat TSH in 4-6 weeks post-discharge. 6. Emphysema - CXR with large emphysematous bleb involving left apex, unchanged from previous study, and chronic interstitial changes - Supplemental O2 - DuoNeb PRN - Incentive spirometer 7. Depression - Continue home sertraline - Ativan PRN 8. GERD - Continue home PPI - Add Maalox as needed 9. Constipation - Bowel regimen DVT prophylaxis: Lovenox Problem Qualifiers (1) Uterine cancer: Azalea Chavarria DO Dec 27, 2017 8:54 am
[2017-12-27] MEDS: SODIUM CHLORIDE 0.9% FLUSH 10 ML FLUSH IV FLUSH SCH ×2 (09:00→20:16)
[2017-12-27] MEDS: POLYETHYLENE GLYCOL 17 GM PKG PO SCH (09:00)
[2017-12-27] MEDS: REMOVE OLD PATCH T-DERMAL SCH (09:00)
[2017-12-27] MEDS ORDERED: ALTEPLASE RECOMBINANT 2 MG VIAL INTRACATH PRN (09:15)
[2017-12-27] MEDS: DEXAMETHASONE SOD PHOS 4 MG/ML VIAL IV PUSH SCH ×2 (10:59→20:16)
[2017-12-27] MEDS: cefTRIAXone INJ 1,000 MG in SODIUM CHLORIDE 0.9% INJ 100 ML IV SCH (11:00)
[2017-12-27] MEDS: SODIUM CHLOR 0.9% 1000 ML INJ 1,000 ML IV SCH ×2 (11:03→21:00)
[2017-12-27] MEDS: NICOTINE 14 MG/24 HR PATCH T-DERMAL SCH (11:27)
[2017-12-27 15:26] LABS: AUTOMATED NEUTROPHIL # 10.3 TH/MM3 (1.8-7.7); BASOPHIL # 0.1 TH/MM3 (0-0.2); BASOPHIL % 0.5 % (0.0-2.0); HEMOGLOBIN 8.6 GM/DL (11.6-15.3); LYMPH % 4.6 % (9.0-44.0); LYMPHOCYTE # 0.5 TH/MM3 (1.0-4.8); MEAN CORPUSCULAR HEMOGLOBIN 31.4 PG (27.0-34.0); MEAN PLATELET VOLUME 8.3 FL (7.0-11.0); MONO % 7.3 % (0.0-8.0); MONOCYTE # 0.9 TH/MM3 (0-0.9); NEUT % 87.6 % (16.0-70.0); PLATELET COUNT 172 TH/MM3 (150-450); RED BLOOD COUNT 2.74 MIL/MM3 (4.00-5.30); RED CELL DISTRIBUTION WIDTH 16.1 % (11.6-17.2); WHITE BLOOD COUNT 11.7 TH/MM3 (4.0-11.0)
--- NOTE | 2017-12-27 15:26 | HHI.HCPN ---
Reason for visit a. To assist with evaluation and management of symptoms including: Pain, dyspnea, anxiety b. To assist medical decision maker(s) with: better understanding of current medical conditions; weighing benefits/burdens of medical treatment options; making medical treatment decisions. Subjective/Interval History Pt seen today to follow up on comfort/pain , goals Path + metastasis, oncology recommended hospice, no further tx options. Pathology =LEFT FEMUR, BIOPSY: METASTATIC EXTENSIVELY NECROTIC MALIGNANT NEOPLASM, PARTIALLY COMPOSED OF A CARCINOMATOUS COMPONENT AND PARTIALLY OF A SARCOMATOUS APPEARING COMPONENT, MORPHOLOGICALLY SIMILAR TO THE PATIENTS PREVIOUS UTERINE BIOPSY . S/p meeting with hospice yesterday. She is not proceeding with hospice yet, still having ongoing conversations with her family/ providers.s/p abdomen imaging today= Mild to moderate gaseous distention of colon typical of a adynamic ileus/non-mechanical obstruction. No free air. Right ureteral stent again demonstrated. Urine culture yesterday pending. No new labs. Pt seen in room, few friends present thus limited PE and limited detailed discussion. Endorses she is feeling Ok today, indicates abdomen very distended this am and very painful, but has had gas + BM and now is much more comfortable , less distended. Indicates left leg pain minimal, tolerating OOB w PT. Feels pain medication is adequate. No n/v. Denies dyspnea. Has been using norco 7.5 mg 3-4 doses day, and morphine 2mg 2-3x day. PRN haldol added for nausea yesterday, effective. She tells me that she met with hospice and that she will be talking to them more and her family more but has not enrolled yet. D/w hospice admission RN, who indicates pt was still inquiring RE possible palliative radiation before enrolling with hospice (* not sure that palliative XRT being offered by oncology at this time?) . Advance Directives Living Will: Never completed Health Care Surrogate: Never completed Durable Power of Hiv Counselor: Never completed Objective Vital Signs Date Time Temp Pulse Resp B/P (MAP) Pulse Ox O2 Delivery O2 Flow Rate FiO2 12/27/17 11:45 98.5 97 20 135/84 (101) 97 12/27/17 08:39 98 Nasal Cannula 3.00 12/27/17 08:02 98.1 96 24 161/91 (114) 95 12/27/17 08:00 95 Nasal Cannula 3.00 12/27/17 04:31 99.0 95 16 142/84 (103) 97 12/26/17 23:22 98.6 93 16 135/88 (104) 93 12/26/17 21:54 Nasal Cannula 3.00 12/26/17 20:55 Nasal Cannula 3.00 12/26/17 20:51 98.8 80 16 128/81 (97) 98 12/26/17 15:40 98.6 89 18 120/79 (93) 97 Intake & Output 12/27/17 12/27/17 07:00 19:00 Intake Total 1360 ml Output Total 700 ml Balance 660 ml Intake Oral 360 ml IV Total 1000 ml Output Urine Total 700 ml # Bowel Movements 1 Physical Exam CONSTITUTIONAL/GENERAL: This is an adequately nourished patient, in no apparent distress, pleasant, talkative TUBES/LINES/DRAINS: Peripheral IV upper extremity, port access right chest, nasal cannula RESPIRATORY/CHEST: Symmetric, unlabored respirations. On 2 L NC. Lungs are clear, diminished. CARDIOVASCULAR: Heart regular. No murmur. Peripheral pulses palpable. No peripheral edema. ABDOMINAL: Abdomen tender, slightly firm, slightly distended to exam. Bowel sounds present. NEUROLOGICAL: Awake and alert, oriented 3. Appropriate, has reasonable insight. Motor and sensory grossly within normal limits. Follows commands. Cognitively sharp. Moves all extremities. PSYCHIATRIC: No obvious anxiety/depression. Appropriately tearful at times during discussion. No apparent hallucinations or other psychotic thought process. Diagnostic Tests Laboratory Laboratory Tests Test 12/26/17 22:45 Urine Color YELLOW (YELLW/STRAW) Urine Turbidity CLEAR (CLEAR) Urine pH 7.0 (5.0-8.5) Urine Specific [place] 1.016 (1.002-1.035) Urine Protein TRACE mg/dL (NEG-TRACE) Urine Glucose (UA) NEG mg/dL (NEG) Urine Ketones NEG mg/dL (NEG) Urine Occult Blood SMALL (NEG) Urine Nitrite NEG (NEG) Urine Bilirubin NEG (NEG) Urine Urobilinogen LESS THAN 2.0 MG/DL (LESS Urine Leukocyte Esterase MOD (NEG) Urine RBC 22 /hpf (0-3) Urine WBC 33 /hpf (0-5) Urine Squamous Epithelial Cells <1 /hpf (0-5) Urine Transitional Epithelial Cells <1 /hpf (NONE) Urine Bacteria RARE /hpf (NONE) Urine Mucus FEW /lpf (OCC) Microscopic Urinalysis Comment CULTURE INDICATED Result Diagram: 12/24/1725 12/24/17 0525 Microbiology Microbiology Date/Time Source Procedure Growth Status 12/26/17 22:45 Urine Clean Catch Urine Culture - Preliminary RESULTS PENDING Resulted Imaging Last Impressions Abdomen X-Ray 12/27/17 0000 Signed Impressions: CONCLUSION: Mild to moderate gaseous distention of colon typical of a adynamic ileus/nonmec hanical obstruction. No free air. Right ureteral stent again demonstrated. Abdomen/Pelvis CT 12/24/17 0000 Signed Impressions: CONCLUSION: 1. Interval development of extensive metastatic disease throughout the enlarge d liver. 2. 11 mm noncalcified nodule within the right lower lobe consistent with possi ble metastatic focus. 3. Diffuse dilatation of the colon consistent with probable diffuse ileus or p ossible distal colonic obstruction. Fecal debris is noted within the rectosigmo id colon. 4. Scattered sclerotic foci within the lumbar spine and upper sacrum raising t he possibility of metastatic disease. Bone scan or PET/CT scan would be helpful for further evaluation if clinically indicated. 5. 5.5 x 5.0 cm uterine mass consistent with the patient's known uterine carci noma. 6. Emphysematous changes within the lung bases. 7. Anasarca. Hip X-Ray 12/21/17 0000 Signed Impressions: CONCLUSION: Fluoroscopic images during placement of a compression pin/intramedullary nino le ft femur Femur X-Ray 12/19/17 1525 Signed Impressions: CONCLUSION: Lytic lesion as above suspicious for metastatic disease. Chest X-Ray 12/19/17 1505 Signed Impressions: CONCLUSION: 1. Large emphysematous bleb involving the left lung apex. This is unchanged fr om previous. 2. Chronic interstitial changes throughout the pulmonary parenchyma. 3. [id number] in good position. Procedures 12/21/17 Open treatment intramedullary rodding of pathologic left femur fracture with stroke and treat extended trochanteric nail and proximal and distal fixation. Biopsy of the left femur. 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 They have been for 35 years. She is originally from [place], here with a green card and legal residents. Has lived in [place] 30+ years. Spiritual: No particular buddhism affiliation though believes in God. Previous interactions did not want jig grinder visits Legal:Patient does not have advanced directives or health care surrogate designation. During prior palliative care and interaction in consultation March 2017 offered patient assistance with completion of that she did not desire to do so at that time. Per [place] statutes her would be appropriate legal proxy if patient incapacitated. Of note at that time she was assisting some in his care as he had suffered 2 strokes. Ethical issues impacting care: Important Contacts Nicolas Jara [phone] Friend Alyssa Larsen [phone] . . 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 At that time she had expansive tumor burden which was not able to be surgically resected, she underwent palliative radiation for tumor burden reduction, and subsequent palliative chemotherapy. Code Status: Full Code Plan Legal decision maker:Patient does not have advanced directives or health care surrogate designation. During prior palliative care and interaction in consultation March 2017 offered patient assistance with completion of that she did not desire to do so at that time. Per [place] statutes her would be appropriate legal proxy if patient incapacitated. Of note at that time she was assisting some in his care as he had suffered 2 strokes. Goals: Upon review again of goals, current situation, diagnostics, she understands conditions, prognosis, and very limited treatment options going forward. She has met w hospice and will likely enroll though wishes to discuss further with family. She also wanted to pursue palliative radiation if this was an option, before proceeding with hospice (though I am not sure palliative XRT has been offered by oncology?) She is considering CODE STATUS, DNR versus CPR. She wishes to talk further with her and family before making additional decisions. CODE STATUS: Full code SYMPTOMS: --Pain-chronic, acute. Patient with chronic abdomen and back pain secondary to malignancy. She has new left femur pain secondary to pathologic fracture. Underwent surgical fixation today. expected to have have some component of acute pain now. Home regimen of long-acting morphine, short-acting breakthrough has been resumed. Thus far patient indicates adequate control though she is tolerant to opiates. prn requirements= morphine 2 mg IV 2-3x day. Hydrocodone 7.5 mg 3-4x per day. patient indicating overall effective. May require slight up titration of long-acting pending needs in the next 24 hours. Possible may still consider palliative XRT for pain to fracture site??, Defer to oncology/radiation oncology. --Anxiety-patient endorses some intermittent anxiety especially with not being able to smoke cigarettes. Currently has prn Ativan available, monitor for effectiveness, requirements. + Has nicotine patch. Has been on sertraline 25 mg, may consider up titration to 50 mg --Dyspnea-patient with underlying COPD, tobacco use. Home inhalers have been continued. Currently no respiratory distress or issues. Recommend close monitoring of respiratory status, continue to encourage I-S, deep breathing etc., maximize mobility when cleared by Ortho she is high risk for pulmonary complications following orthopedic surgery. --Chronic constipation-history of ileus, will require daily bowel regimen especially with immobility, chronic opiate use. Daily regimen now in place , prn available, will continue to monitor. In the past she did require Relistor. Today she has had significant abdominal discomfort, had BM. She will very likely continue to experience physiological, mechanical effects and symptoms secondary to tumor burden. Palliative care will continue to follow during hospital course as condition evolves, to assist patient/decision-maker with understanding of medical conditions, weighing benefits/burdens of treatment options, for clarification of goals of treatment. Additionally will assist with any symptoms of palliative concern Time Spent Total Floor Time (mins): 15 (chart review , PE, d/w nurse ) Attestation To help prompt me to consider important information that might be impacting today's encounter and assessment, information from prior notes written by myself or my colleagues may have been "brought forward" into today's note. My signature on this note, however, is an attestation that I personally performed the exam, history, and/or decision-making noted today, and, unless otherwise indicated, the interactions with patient, family, and staff as well as the review of records all occurred today. I also attest that the listed assessment and stated plan reflect my best clinical judgment today based on the combination of historical information, prior notes, and today's exam/ interactions. When time spent is documented, it refers only to time spent today by the signer, or if indicated, combined time spent today by collaborating physician/nurse practitioner. Kaylah Alvarado Dec 27, 2017 15:26
[2017-12-27] MEDS: guaiFENesin/CODEINE SYRUP 200 MG/20 MG/10 ML CUP PO PRN (17:30)
[2017-12-28] VITALS (7 sets, daily range): BP systolic 125–164; BP diastolic 75–103; PULSE 85–101; RESP 16–22; TEMP 98–98.8; O2SAT 93–98
[2017-12-28] MEDS: ACETAMINOPHEN/HYDROcodone 325 MG/7.5 MG TAB PO PRN ×4 (03:00→21:40)
[2017-12-28] MEDS: LEVOTHYROXINE SODIUM 25 MCG TAB PO SCH (05:49)
[2017-12-28] MEDS: ENOXAPARIN SODIUM 30 MG/0.3 ML SYRINGE SQ SCH (05:49)
[2017-12-28] MEDS: RESP: ALBUTEROL 2.5 MG/IPRATROPIUM 0.5 MG NEB (PRN) NEB ×2 (06:21→19:52)
[2017-12-28] MEDS: SODIUM CHLOR 0.9% 1000 ML INJ 1,000 ML IV SCH ×2 (07:00→17:00)
[2017-12-28] MEDS: ONDANSETRON ODT 4 MG TAB SL PRN (08:27)
[2017-12-28] MEDS: NICOTINE 14 MG/24 HR PATCH T-DERMAL SCH (08:29)
[2017-12-28] MEDS: cefTRIAXone INJ 1,000 MG in SODIUM CHLORIDE 0.9% INJ 100 ML IV SCH (08:29)
[2017-12-28] MEDS: cloNIDine HCL 0.1 MG TAB PO PRN (08:35)
[2017-12-28] MEDS: MORPHINE SULFATE 4 MG/ML INJ IV PUSH PRN ×3 (08:35→19:46)
[2017-12-28] MEDS: REMOVE OLD PATCH T-DERMAL SCH (09:00)
[2017-12-28] MEDS: SERTRALINE HCL 50 MG TAB PO SCH (09:00)
[2017-12-28] MEDS: DOCUSATE SODIUM 50 MG/SENNA 8.6 MG TAB PO SCH ×2 (09:00→21:00)
[2017-12-28] MEDS: SODIUM CHLORIDE 0.9% FLUSH 10 ML FLUSH IV FLUSH SCH ×2 (09:00→19:49)
[2017-12-28] MEDS: POLYETHYLENE GLYCOL 17 GM PKG PO SCH (09:00)
[2017-12-28] MEDS: DEXAMETHASONE SOD PHOS 4 MG/ML VIAL IV PUSH SCH ×2 (09:00→21:41)
[2017-12-28] MEDS: LACTATED RINGER'S 1000 ML INJ 1,000 ML IV SCH ×2 (09:08→21:38)
--- NOTE | 2017-12-28 10:01 | HHI.PR ---
Subjective Remarks Follow-up for ileus, abdominal pain, uterine cancer, left femur fracture. Patient reports no fever, chills. However, abdominal discomfort, pain as well as nausea remain about the same. Objective Vitals Vital Signs Date Time Temp Pulse Resp B/P (MAP) Pulse Ox O2 Delivery O2 Flow Rate FiO2 12/28/17 08:32 98.1 101 22 164/103 (123) 96 12/28/17 07:12 95 Nasal Cannula 3.00 12/28/17 04:46 98.0 100 16 137/89 (105) 94 12/28/17 00:00 98.8 87 16 153/89 (110) 98 12/27/17 20:16 100 Nasal Cannula 3.00 12/27/17 20:13 98.0 91 16 141/91 (108) 100 12/27/17 19:18 95 Nasal Cannula 3.00 12/27/17 16:00 98.3 101 20 142/92 (109) 98 12/27/17 11:45 98.5 97 20 135/84 (101) 97 I/O 12/27/17 12/27/17 12/27/17 12/28/17 12/28/17 12/28/17 07:00 15:00 23:00 07:00 15:00 23:00 Intake Total 1360 ml 1000 ml Output Total 400 ml Balance 960 ml 1000 ml Intake Oral 360 ml IV Total 1000 ml 1000 ml Output Urine Total 400 ml # Voids 2 # Bowel Movements 1 Result Diagram: 12/27/17 1345 12/24/17 0525 Imaging Last Impressions Abdomen X-Ray 12/27/17 0000 Signed Impressions: CONCLUSION: Mild to moderate gaseous distention of colon typical of a adynamic ileus/nonmec hanical obstruction. No free air. Right ureteral stent again demonstrated. Abdomen/Pelvis CT 12/24/17 0000 Signed Impressions: CONCLUSION: 1. Interval development of extensive metastatic disease throughout the enlarge d liver. 2. 11 mm noncalcified nodule within the right lower lobe consistent with possi ble metastatic focus. 3. Diffuse dilatation of the colon consistent with probable diffuse ileus or p ossible distal colonic obstruction. Fecal debris is noted within the rectosigmo id colon. 4. Scattered sclerotic foci within the lumbar spine and upper sacrum raising t he possibility of metastatic disease. Bone scan or PET/CT scan would be helpful for further evaluation if clinically indicated. 5. 5.5 x 5.0 cm uterine mass consistent with the patient's known uterine carci noma. 6. Emphysematous changes within the lung bases. 7. Anasarca. Hip X-Ray 12/21/17 0000 Signed Impressions: CONCLUSION: Fluoroscopic images during placement of a compression pin/intramedullary nino le ft femur Femur X-Ray 12/19/17 1525 Signed Impressions: CONCLUSION: Lytic lesion as above suspicious for metastatic disease. Chest X-Ray 12/19/17 1505 Signed Impressions: CONCLUSION: 1. Large emphysematous bleb involving the left lung apex. This is unchanged fr om previous. 2. Chronic interstitial changes throughout the pulmonary parenchyma. 3. Jgwmif-h-[id number] in good position. Objective Remarks GENERAL: Alert, oriented 3, NAD. SKIN: Warm and dry. HEAD: Normocephalic. EYES: No scleral icterus. No injection or drainage. NECK: Supple, trachea midline. No JVD or lymphadenopathy. CARDIOVASCULAR: Regular rate and rhythm without murmurs, gallops, or rubs. RESPIRATORY: Breath sounds equal bilaterally. No accessory muscle use. GASTROINTESTINAL: Abdomen somewhat firm, distended and exquisitely tender to palpation. MUSCULOSKELETAL: No cyanosis, or edema. BACK: Nontender without obvious deformity. No CVA tenderness. Procedures Date of Surgery: December 21, 2017 Preoperative Diagnosis: History of metastatic uterine sarcoma. Pathologic fracture left femur Postoperative Diagnosis: Same Procedure: Open treatment intramedullary rodding of pathologic left femur fracture with stroke and treat extended trochanteric nail and proximal and distal fixation. Biopsy of the left femur A/P Problem List: (1) Tobacco abuse ICD Code: Z72.0 - Tobacco use (2) Pathological fracture, left femur, initial encounter for fracture ICD Code: M84.452A - Pathological fracture, left femur, initial encounter for fracture Status: Acute (3) Sepsis secondary to UTI ICD Code: A41.9 - Sepsis, unspecified organism; N39.0 - Urinary tract infection , site not specified Status: Acute (4) UTI (urinary tract infection) ICD Code: N39.0 - Urinary tract infection, site not specified Status: Resolved (5) Hydronephrosis, right ICD Code: N13.30 - Unspecified hydronephrosis (6) Malnutrition ICD Code: E46 - Unspecified protein-calorie malnutrition (7) Uterine cancer ICD Code: C55 - Malignant neoplasm of uterus, part unspecified Status: Chronic (8) Hypothyroidism ICD Code: E03.9 - Hypothyroidism, unspecified (9) Carcinosarcoma of uterus ICD Code: 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 1. Abdominal pain - Abdomen is distended and diffusely tender to palpation - CT abdomen/pelvis shows significant metastasis as well as ileus. - Will consider NG tube if patient has persistent Nausea, vomiting. - Will continue Octreotide, Dexamethasone for Ileus - IV haloperidol for nausea, vomiting. - Will try to get input from Dr. Clifton for any additional recommendations. 2. L femur fracture - Pathologic given little to no trauma and evidence of 3.8 cm lytic lesion, likely metastatic uterine cancer - Ortho consulted, s/p ORIF with intratrochanteric nail POD3. Appreciate their intervention - Recommend partial WB LLE and FWB RLE - Rad onc consulted - Palliative care following - Pain control 3. Sepsis - Was started on IV cefepime on admission as she met sepsis criteria (WBC>12, tachycardia, source of infection possible UTI) - Initial WBC 23.6 trending down to 11.8 on 12/24/2017. - U/A with small leukocyte esterase but culture with mixed loyda - Blood cultures NGTD - Discontinued cefepime as white count trending down and patient has remained afebrile - Monitor clinically for fevers, signs of infection, etc. 4. Uterine carcinosarcoma - S/P radiation and systemic chemo with Taxol and carboplatin x 6 cycles - Now with likely metastasis - Dr. Clifton's team is following and has recommended hospice. - Continue home Megace - Palliative following 5. Hypothyroidism - TSH mildly elevated at 5.69 - Synthroid 25 mcg - Will need repeat TSH in 4-6 weeks post-discharge. 6. Emphysema - CXR with large emphysematous bleb involving left apex, unchanged from previous study, and chronic interstitial changes - Supplemental O2 - DuoNeb PRN - Incentive spirometer 7. Depression - Continue home sertraline - Ativan PRN 8. GERD - Continue home PPI - Add Maalox as needed 9. Constipation - Bowel regimen DVT prophylaxis: Lovenox Problem Qualifiers (1) Uterine cancer: Azalea Chavarria DO Dec 28, 2017 10:01 am
[2017-12-28] MEDS ORDERED: MORPHINE SULFATE 4 MG/ML INJ IV PUSH ONE (11:00)
[2017-12-28] MEDS: MEGESTROL ACETATE 40 MG TAB PO SCH ×4 (12:30→21:40)
[2017-12-28] MEDS: MORPHINE SULFATE 60 MG CONTROLLED RELEASE TAB PO SCH ×2 (12:30→21:40)
[2017-12-28] MEDS: PANTOPRAZOLE SOD 20 MG DELAYED RELEASE TAB PO SCH (13:02)
[2017-12-28] MEDS: OCTREOTIDE INJ 100 MCG/ML VIAL SQ SCH ×2 (13:02→21:41)
--- NOTE | 2017-12-28 14:53 | HHI.HCPN ---
Reason for visit a. To assist with evaluation and management of symptoms including: Pain, dyspnea, anxiety b. To assist medical decision maker(s) with: better understanding of current medical conditions; weighing benefits/burdens of medical treatment options; making medical treatment decisions. Subjective/Interval History Pt seen today to follow up on comfort/pain , goals Path + metastasis, oncology recommended hospice, no further tx options. Pathology =LEFT FEMUR, BIOPSY: METASTATIC EXTENSIVELY NECROTIC MALIGNANT NEOPLASM, PARTIALLY COMPOSED OF A CARCINOMATOUS COMPONENT AND PARTIALLY OF A SARCOMATOUS APPEARING COMPONENT, MORPHOLOGICALLY SIMILAR TO THE PATIENTS PREVIOUS UTERINE BIOPSY . Patient has had meeting with hospice, she has not been ready to proceed with enrollment yet has wanted to try to pursue palliative radiation if this is an option. Apparently today Dr. Gerardo has made arrangements for her to start XRT. No new labs. She has continued to have episodic nausea, as well as ongoing pain to the abdomen. She has required about 3 doses a day of morphine 2 mg, she has been using [place] 7.5 several doses a day 4-5 doses a day. Today she required additional one-time dosing of morphine 2 mg. Most of this pain appears to be abdominal not related to her left leg fracture or surgery. She has been on Oramorph 60 mg every 12 hours with no adjustments for the last several months, on this dose since at least July of this year that I am aware of. She would likely be able to tolerate up titration of Oramorph; would recommend changing to 75mg Q 12 hrs. Met with patient at bedside. She is alert, oriented and appropriate. She is painful, moans and grimaces at times however she remains pleasant and cooperative. She understands conditions and overall prognosis. She understands she may be starting XRT today as per Dr. gerardo. She would like to proceed with hospice enrollment either concurrent with XRT if this will be permitted or at completion of XRT. She indicates she continues to have significant pain to her abdomen though her left leg/hip is not terribly painful. She also continues to have episodes of nausea she feels like she will be fine for many hours or even a day or so and then it comes in waves limited relief from Zofran much better relief with Haldol. She is amenable to up titration of long-acting morphine, as well as scheduled regimen if indicated going forward for nausea control. Review of CODE STATUS. She tells me she "does not want to suffer anymore" and she says no machines no CPR allow her to be comfortable should that occur. Offer to call her to provide medical update, she indicates she has been in close communication with him and he does not need an update. . Advance Directives Living Will: Never completed Health Care Surrogate: Never completed Durable Power of Paper Sales Manager: Never completed Advance Directive Specifics Significant change in goals: requests DNR. Requests hospice enrollment either upon complete completion of palliative radiation or if hospice will accept and provide palliative radiation treatments will enroll with hospice while she completes radiation. Objective Vital Signs Date Time Temp Pulse Resp B/P (MAP) Pulse Ox O2 Delivery O2 Flow Rate FiO2 12/28/17 11:30 98.0 87 20 140/86 (104) 96 12/28/17 08:32 98.1 101 22 164/103 (123) 96 12/28/17 07:12 95 Nasal Cannula 3.00 12/28/17 04:46 98.0 100 16 137/89 (105) 94 12/28/17 00:00 98.8 87 16 153/89 (110) 98 12/27/17 20:16 100 Nasal Cannula 3.00 12/27/17 20:13 98.0 91 16 141/91 (108) 100 12/27/17 19:18 95 Nasal Cannula 3.00 12/27/17 16:00 98.3 101 20 142/92 (109) 98 Intake & Output 12/28/17 12/28/17 06:59 18:59 Intake Total 1000 ml Balance 1000 ml IV Total 1000 ml # Voids 2 # Bowel Movements 1 Physical Exam CONSTITUTIONAL/GENERAL: This is an adequately nourished patient, in pain, grimacing TUBES/LINES/DRAINS: Peripheral IV upper extremity, port access right chest, nasal cannula RESPIRATORY/CHEST: Symmetric, unlabored respirations. On 2 L NC. Lungs are clear, diminished. CARDIOVASCULAR: Heart regular. No murmur. Peripheral pulses palpable. No peripheral edema. ABDOMINAL: Abdomen tender, slightly firm, slightly distended to exam. Bowel sounds present. NEUROLOGICAL: Awake and alert, oriented 3. Appropriate, has reasonable insight. Motor and sensory grossly within normal limits. Follows commands. Cognitively sharp. Moves all extremities. PSYCHIATRIC: No obvious anxiety/depression. groaning/painful. No apparent hallucinations or other psychotic thought process. . Diagnostic Tests Laboratory Laboratory Tests Test 12/26/17 22:45 12/27/17 13:45 Urine Color YELLOW (YELLW/STRAW) Urine Turbidity CLEAR (CLEAR) Urine pH 7.0 (5.0-8.5) Urine Specific [place] 1.016 (1.002-1.035) Urine Protein TRACE mg/dL (NEG-TRACE) Urine Glucose (UA) NEG mg/dL (NEG) Urine Ketones NEG mg/dL (NEG) Urine Occult Blood SMALL (NEG) Urine Nitrite NEG (NEG) Urine Bilirubin NEG (NEG) Urine Urobilinogen LESS THAN 2.0 MG/DL (LESS Urine Leukocyte Esterase MOD (NEG) Urine RBC 22 /hpf (0-3) Urine WBC 33 /hpf (0-5) Urine Squamous Epithelial Cells <1 /hpf (0-5) Urine Transitional Epithelial Cells <1 /hpf (NONE) Urine Bacteria RARE /hpf (NONE) Urine Mucus FEW /lpf (OCC) Microscopic Urinalysis Comment CULTURE INDICATED White Blood Count 11.7 TH/MM3 (4.0-11.0) Red Blood Count 2.74 MIL/MM3 (4.00-5.30) Hemoglobin 8.6 GM/DL (11.6-15.3) Hematocrit 26.0 % (35.0-46.0) Mean Corpuscular Volume 95.0 FL (80.0-100.0) Mean Corpuscular Hemoglobin 31.4 PG (27.0-34.0) Mean Corpuscular Hemoglobin Concent 33.0 % (32.0-36.0) Red Cell Distribution Width 16.1 % (11.6-17.2) Platelet Count 172 TH/MM3 (150-450) Mean Platelet Volume 8.3 FL (7.0-11.0) Neutrophils (%) (Auto) 87.6 % (16.0-70.0) Lymphocytes (%) (Auto) 4.6 % (9.0-44.0) Monocytes (%) (Auto) 7.3 % (0.0-8.0) Eosinophils (%) (Auto) 0.0 % (0.0-4.0) Basophils (%) (Auto) 0.5 % (0.0-2.0) Neutrophils # (Auto) 10.3 TH/MM3 (1.8-7.7) Lymphocytes # (Auto) 0.5 TH/MM3 (1.0-4.8) Monocytes # (Auto) 0.9 TH/MM3 (0-0.9) Eosinophils # (Auto) 0.0 TH/MM3 (0-0.4) Basophils # (Auto) 0.1 TH/MM3 (0-0.2) CBC Comment DIFF FINAL Differential Comment Result Diagram: 12/27/17 1345 12/24/17 0525 Microbiology Microbiology Date/Time Source Procedure Growth Status 12/26/17 22:45 Urine Clean Catch Urine Culture - Final 10-50,000 CFU/ML MIXED AYSE... Complete Imaging Last Impressions Abdomen X-Ray 12/27/17 0000 Signed Impressions: CONCLUSION: Mild to moderate gaseous distention of colon typical of a adynamic ileus/nonmec hanical obstruction. No free air. Right ureteral stent again demonstrated. Abdomen/Pelvis CT 12/24/17 0000 Signed Impressions: CONCLUSION: 1. Interval development of extensive metastatic disease throughout the enlarge d liver. 2. 11 mm noncalcified nodule within the right lower lobe consistent with possi ble metastatic focus. 3. Diffuse dilatation of the colon consistent with probable diffuse ileus or p ossible distal colonic obstruction. Fecal debris is noted within the rectosigmo id colon. 4. Scattered sclerotic foci within the lumbar spine and upper sacrum raising t he possibility of metastatic disease. Bone scan or PET/CT scan would be helpful for further evaluation if clinically indicated. 5. 5.5 x 5.0 cm uterine mass consistent with the patient's known uterine carci noma. 6. Emphysematous changes within the lung bases. 7. Anasarca. Hip X-Ray 12/21/17 0000 Signed Impressions: CONCLUSION: Fluoroscopic images during placement of a compression pin/intramedullary nino le ft femur Femur X-Ray 12/19/17 1525 Signed Impressions: CONCLUSION: Lytic lesion as above suspicious for metastatic disease. Chest X-Ray 12/19/17 1505 Signed Impressions: CONCLUSION: 1. Large emphysematous bleb involving the left lung apex. This is unchanged fr om previous. 2. Chronic interstitial changes throughout the pulmonary parenchyma. 3. Oivdzq-b-Mlys in good position. Procedures 12/21/17 Open treatment intramedullary rodding of pathologic left femur fracture with stroke and treat extended trochanteric nail and proximal and distal fixation. Biopsy of the left femur. 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 They have been for 35 years. She is originally from [place], here with a green card and legal residents. Has lived in [place] 30+ years. Spiritual: No particular latter day affiliation though believes in God. Previous interactions did not want ice scraper visits Legal:Patient does not have advanced directives or health care surrogate designation. During prior palliative care and interaction in consultation March 2017 offered patient assistance with completion of that she did not desire to do so at that time. Per [place] statutes her would be appropriate legal proxy if patient incapacitated. Of note at that time she was assisting some in his care as he had suffered 2 strokes. Ethical issues impacting care: Important Contacts Nicolas Jara [phone] Friend Alyssa Larsen [phone] . . 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 At that time she had expansive tumor burden which was not able to be surgically resected, she underwent palliative radiation for tumor burden reduction, and subsequent palliative chemotherapy. Code Status: No Code Plan Legal decision maker:Patient does not have advanced directives or health care surrogate designation. During prior palliative care and interaction in consultation March 2017 offered patient assistance with completion of that she did not desire to do so at that time. Per [place] statutes her would be appropriate legal proxy if patient incapacitated. Of note at that time she was assisting some in his care as he had suffered 2 strokes. Goals: Upon review again of goals, current situation, diagnostics, she understands conditions, prognosis, and very limited treatment options going forward. She has met hospice and will likely enroll , pending either hospice able to allow limited # of palliative XRT treatments, OR will enroll after XRT completed. She has requested DNR. CODE STATUS: DNR SYMPTOMS: --Pain-chronic, acute. Patient with chronic abdomen and back pain secondary to malignancy. She has new left femur pain secondary to pathologic fracture. Underwent surgical fixation today. expected to have have some component of acute pain now. Home regimen of long-acting morphine, short-acting breakthrough has been resumed. she is tolerant to opiates. She has continued to have episodic nausea, as well as ongoing pain to the abdomen. She has required about 3 doses a day of morphine 2 mg IV, she has been using [place] 7.5 several doses a day 4-5 doses a day. Today she required additional one-time dosing of morphine 2 mg. Most of this pain appears to be abdominal not related to her left leg fracture or surgery. She has been on Oramorph 60 mg every 12 hours with no adjustments for the last several months, on this dose since at least July of this year that I am aware of. She would likely be able to tolerate up titration of Oramorph; would recommend changing to 75mg Q 12 hrs. --Anxiety-patient endorses some intermittent anxiety especially with not being able to smoke cigarettes. Currently has prn Ativan available, monitor for effectiveness, requirements. + Has nicotine patch. Has been on sertraline 25 mg, may consider up titration to 50 mg --Dyspnea-patient with underlying COPD, tobacco use. Home inhalers have been continued. Currently no respiratory distress or issues. Recommend close monitoring of respiratory status, continue to encourage I-S, deep breathing etc., maximize mobility when cleared by Ortho she is high risk for pulmonary complications following orthopedic surgery. --Chronic constipation-history of ileus, will require daily bowel regimen especially with immobility, chronic opiate use. Daily regimen now in place , prn available, will continue to monitor. In the past she did require Relistor. Today she has had significant abdominal discomfort, had BM. She will very likely continue to experience physiological, mechanical effects and symptoms secondary to tumor burden. --nausea-episodic nausea. Limited relief with Zofran. Haldol has been added with improvement and relief. If nausea is persistent and occurring every day requiring multiple PRNs may need to consider scheduled Haldol dosing. Palliative care will continue to follow during hospital course as condition evolves, to assist patient/decision-maker with understanding of medical conditions, weighing benefits/burdens of treatment options, for clarification of goals of treatment. Additionally will assist with any symptoms of palliative concern Time Spent Total Floor Time (mins): 30 (Chart review, discussion with nurse, discussion with patient, PE, discussion with hospice nurse) Attestation To help prompt me to consider important information that might be impacting today's encounter and assessment, information from prior notes written by myself or my colleagues may have been "brought forward" into today's note. My signature on this note, however, is an attestation that I personally performed the exam, history, and/or decision-making noted today, and, unless otherwise indicated, the interactions with patient, family, and staff as well as the review of records all occurred today. I also attest that the listed assessment and stated plan reflect my best clinical judgment today based on the combination of historical information, prior notes, and today's exam/ interactions. When time spent is documented, it refers only to time spent today by the signer, or if indicated, combined time spent today by collaborating physician/nurse practitioner. Kaylah Alvarado Dec 28, 2017 14:53
[2017-12-29] VITALS: BP 142/80; PULSE 90; RESP 18; TEMP 98.9; O2SAT 95
[2017-12-29] MEDS: MORPHINE SULFATE 4 MG/ML INJ IV PUSH PRN ×4 (00:20→19:02)
[2017-12-29] MEDS: SODIUM CHLOR 0.9% 1000 ML INJ 1,000 ML IV SCH ×2 (00:26→21:10)
[2017-12-29] MEDS: ACETAMINOPHEN/HYDROcodone 325 MG/7.5 MG TAB PO PRN ×5 (02:52→20:54)
[2017-12-29 05:00] VITALS: BP 113/65; PULSE 92; RESP 14; TEMP 98.4; O2SAT 97
[2017-12-29] MEDS: LEVOTHYROXINE SODIUM 25 MCG TAB PO SCH (06:29)
[2017-12-29] MEDS: ENOXAPARIN SODIUM 30 MG/0.3 ML SYRINGE SQ SCH (06:29)
[2017-12-29] MEDS: RESP: ALBUTEROL 2.5 MG/IPRATROPIUM 0.5 MG NEB (PRN) NEB ×2 (07:13→15:53)
[2017-12-29 07:14] VITALS: O2SAT 99
--- NOTE | 2017-12-29 07:52 | PD.ONC.PN ---
Subjective Subjective Remarks patient sitting up in bed states that she feels much better then she did yesterday. she had a palliative radiation treatment yesterday to her femur she states pain controlled she is unsure if anymore radiation treatments are scheduled has been OOB ambulating denies any vomiting pt has elected to be DNR and once palliative radiation is completed she wishes to be in Hospice service. Objective Data Date Time Temp Pulse Resp B/P (MAP) Pulse Ox O2 Delivery O2 Flow Rate FiO2 12/29/17 07:14 99 Nasal Cannula 3.00 12/29/17 05:00 98.4 92 14 113/65 (81) 97 12/29/17 00:00 98.9 90 18 142/80 (100) 95 12/28/17 20:00 Nasal Cannula 3.00 12/28/17 20:00 98.0 85 17 125/75 (92) 93 12/28/17 19:52 98 Nasal Cannula 3.00 12/28/17 16:30 98.0 86 20 140/82 (101) 96 12/28/17 11:30 98.0 87 20 140/86 (104) 96 12/28/17 08:32 98.1 101 22 164/103 (123) 96 12/29/17 12/29/17 12/29/17 07:00 15:00 23:00 Intake Total 240 ml Output Total 1500 ml Balance -1260 ml Result Diagram: 12/27/17 1345 Culture Results Microbiology Date/Time Source Procedure Growth Status 12/26/17 22:45 Urine Clean Catch Urine Culture - Final 10-50,000 CFU/ML MIXED AYSE... Complete Administered Medications Medications (Trade) Dose Ordered Sig/Mata Route PRN Reason Start Time Stop Time Status Last Admin Dose Admin Sodium Chloride (NS Flush) 2 ml UNSCH PRN IV FLUSH FLUSH AFTER USING IV ACCESS 12/19/17 18:15 12/26/17 23:30 Sodium Chloride (NS Flush) 2 ml BID IV FLUSH 12/19/17 21:00 12/28/17 19:49 Acetaminophen/ Hydrocodone Bitart ([place] 7.5-325 Mg) 1 tab Q4H PRN PO PAIN SCALE 6 TO 10 12/19/17 18:15 12/29/17 06:29 Magnesium Hydroxide (Milk Of Magnesia Liq) 30 ml Q12H PRN PO Mild constipation 12/19/17 18:15 12/20/17 08:19 Bisacodyl (Dulcolax Supp) 10 mg DAILY PRN RECTAL SEVERE CONSITIPATION 12/19/17 18:15 12/24/17 23:20 Lactulose (Lactulose Liq) 30 ml DAILY PRN PO SEVERE CONSITIPATION 12/19/17 18:15 12/23/17 00:30 Albuterol/ Ipratropium (Duoneb Neb) 1 ampule Q2HR NEB PRN NEB SOB/WHEEZING 12/19/17 18:15 12/29/17 07:13 Morphine Sulfate (Morphine Inj) 2 mg Q3H PRN IV PUSH BREAKTHROUGH PAIN 12/20/17 01:15 12/29/17 00:20 Lorazepam (Ativan) 0.5 mg DAILY PRN PO ANXIETY AND/OR AGITATION 12/20/17 09:00 12/27/17 01:59 Megestrol Acetate (Megace) 40 mg QID PO 12/20/17 09:00 12/28/17 21:40 Morphine Sulfate (Oramorph Sr) 60 mg Q12HR PO 12/20/17 09:00 12/28/17 21:40 Ondansetron HCl (Zofran Odt) 4 mg Q6HR PRN SL Nausea/Vomiting 12/20/17 09:00 12/28/17 08:27 Pantoprazole Sodium (Protonix) 20 mg DAILY PO 12/20/17 09:00 12/28/17 13:02 Sertraline HCl (Zoloft) 25 mg DAILY PO 12/20/17 09:00 12/27/17 08:33 Albuterol/ Ipratropium (Duoneb Neb) 1 ampule Q4HR NEB PRN NEB SOB/COUGH 12/20/17 09:00 12/28/17 19:52 Clonidine (Catapres) 0.1 mg Q4H PRN PO SBP>160, DBP>90 12/20/17 09:00 12/28/17 08:35 Nicotine (Habitrol 14 Mg Patch.24 Hr) 1 patch DAILY T-DERMAL 12/21/17 09:00 12/28/17 08:29 Miscellaneous Information 1 DAILY T-DERMAL 12/21/17 09:00 12/26/17 09:35 Lactated Ringer's 1,000 ml @ 80 mls/hr [id number] IV 12/21/17 14:38 12/21/17 15:15 Al Hydrox/Mg Hydrox/Simethicone (Mag-Al Plus Susp Liq) 30 ml Q6H PRN PO INDIGESTION 12/21/17 14:45 12/24/17 20:33 Levothyroxine Sodium (Synthroid) 25 mcg DAILY@0600 PO 12/22/17 06:00 12/29/17 06:29 Enoxaparin Sodium (Lovenox Inj) 30 mg Q24H SQ 12/22/17 06:00 12/29/17 06:29 Senna/Docusate Sodium (Sharon-Colace) 2 tab BID PO 12/22/17 10:45 12/27/17 08:32 Polyethylene Glycol (Miralax) 17 gm DAILY PO 12/23/17 09:00 12/24/17 08:07 Guaifenesin/ Codeine Phosphate (Robitussin Ac 200-20 Mg/10 ml Liq) 10 ml Q4H PRN PO cough 12/22/17 22:00 12/27/17 17:30 Al Hydrox/Mg Hydrox/Simethicone (Mag-Al Plus Susp Liq) 30 ml Q6H PRN PO HEARTBURN 12/24/17 14:00 12/28/17 08:41 Sodium Chloride 1,000 ml @ 100 mls/hr Q10H IV 12/24/17 23:00 12/27/17 21:00 Octreotide Acetate (SandoSTATIN INJ) 100 mcg Q12HR SQ 12/26/17 10:00 12/28/17 21:41 Haloperidol Lactate (Haldol Inj) 2 mg Q6HR PRN IV NAUSEA OR VOMITING 12/26/17 08:30 12/26/17 20:56 Dexamethasone Sodium Phosphate (Decadron Inj) 4 mg Q12HR IV PUSH 12/26/17 09:00 12/28/17 21:41 Ceftriaxone Sodium 1000 mg/ Sodium Chloride 100 ml @ 200 mls/hr Q24H IV 12/27/17 08:00 12/28/17 08:29 Alteplase, Recombinant (Cathflo Activase Inj) 2 mg Q2H PRN INTRACATH for port 12/27/17 09:15 12/27/17 10:15 Objective Remarks GENERAL: frail SKIN: Warm and dry. HEAD: Normocephalic. EYES: No scleral icterus. No injection or drainage. NECK: Supple CARDIOVASCULAR: Regular rate and rhythm without murmurs. RESPIRATORY: Breath sounds equal bilaterally. No accessory muscle use. cough NEUROLOGICAL: No obvious focal deficit. Awake, alert, and oriented x3. PSYCHIATRIC: Appropriate mood and affect; insight and judgment normal. 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 Clifton and he is in agreement. Sharif Randle Dec 29, 2017 07:52
[2017-12-29] MEDS ORDERED: ADVA100A INH (08:03)
[2017-12-29] MEDS: MEGESTROL ACETATE 40 MG TAB PO SCH ×4 (09:00→20:53)
[2017-12-29] MEDS: POLYETHYLENE GLYCOL 17 GM PKG PO SCH (09:00)
[2017-12-29] MEDS: REMOVE OLD PATCH T-DERMAL SCH (09:00)
[2017-12-29] MEDS: DOCUSATE SODIUM 50 MG/SENNA 8.6 MG TAB PO SCH ×2 (09:00→20:55)
--- NOTE | 2017-12-29 09:24 | HHI.PR ---
Subjective Remarks Follow-up for ileus, abdominal pain, uterine cancer, left femur fracture. Ms. Jara is doing much better today. She reports significant improvement with regards to her abdominal pain. She tolerated breakfast well. She is also not having nausea or vomiting. No fever or chills. We discussed about colonic stent in future should her ileus returns. Objective Vitals Vital Signs Date Time Temp Pulse Resp B/P (MAP) Pulse Ox O2 Delivery O2 Flow Rate FiO2 12/29/17 07:14 99 Nasal Cannula 3.00 12/29/17 05:00 98.4 92 14 113/65 (81) 97 12/29/17 00:00 98.9 90 18 142/80 (100) 95 12/28/17 20:00 Nasal Cannula 3.00 12/28/17 20:00 98.0 85 17 125/75 (92) 93 12/28/17 19:52 98 Nasal Cannula 3.00 12/28/17 16:30 98.0 86 20 140/82 (101) 96 12/28/17 11:30 98.0 87 20 140/86 (104) 96 I/O 12/28/17 12/28/17 12/28/17 12/29/17 12/29/17 12/29/17 07:00 15:00 23:00 07:00 15:00 23:00 Intake Total 250 ml 240 ml Output Total 550 ml 1500 ml Balance -300 ml -1260 ml Intake Oral 250 ml 240 ml Output Urine Total 550 ml 1500 ml # Bowel Movements 1 Result Diagram: 12/27/17 1345 Imaging Last Impressions Abdomen X-Ray 12/27/17 0000 Signed Impressions: CONCLUSION: Mild to moderate gaseous distention of colon typical of a adynamic ileus/nonmec hanical obstruction. No free air. Right ureteral stent again demonstrated. Abdomen/Pelvis CT 12/24/17 0000 Signed Impressions: CONCLUSION: 1. Interval development of extensive metastatic disease throughout the enlarge d liver. 2. 11 mm noncalcified nodule within the right lower lobe consistent with possi ble metastatic focus. 3. Diffuse dilatation of the colon consistent with probable diffuse ileus or p ossible distal colonic obstruction. Fecal debris is noted within the rectosigmo id colon. 4. Scattered sclerotic foci within the lumbar spine and upper sacrum raising t he possibility of metastatic disease. Bone scan or PET/CT scan would be helpful for further evaluation if clinically indicated. 5. 5.5 x 5.0 cm uterine mass consistent with the patient's known uterine carci noma. 6. Emphysematous changes within the lung bases. 7. Anasarca. Hip X-Ray 12/21/17 0000 Signed Impressions: CONCLUSION: Fluoroscopic images during placement of a compression pin/intramedullary nino le ft femur Femur X-Ray 12/19/17 1525 Signed Impressions: CONCLUSION: Lytic lesion as above suspicious for metastatic disease. Chest X-Ray 12/19/17 1505 Signed Impressions: CONCLUSION: 1. Large emphysematous bleb involving the left lung apex. This is unchanged fr om previous. 2. Chronic interstitial changes throughout the pulmonary parenchyma. 3. [id number] in good position. Objective Remarks GENERAL: Alert, oriented 3, NAD. SKIN: Warm and dry. HEAD: Normocephalic. EYES: No scleral icterus. No injection or drainage. NECK: Supple, trachea midline. No JVD or lymphadenopathy. CARDIOVASCULAR: Regular rate and rhythm without murmurs, gallops, or rubs. RESPIRATORY: Breath sounds equal bilaterally. No accessory muscle use. GASTROINTESTINAL: Abdomen still somewhat firm, distended. Not much painful on palpation. MUSCULOSKELETAL: No cyanosis, or edema. BACK: Nontender without obvious deformity. No CVA tenderness. Procedures Date of Surgery: December 21, 2017 Preoperative Diagnosis: History of metastatic uterine sarcoma. Pathologic fracture left femur Postoperative Diagnosis: Same Procedure: Open treatment intramedullary rodding of pathologic left femur fracture with stroke and treat extended trochanteric nail and proximal and distal fixation. Biopsy of the left femur A/P Problem List: (1) Tobacco abuse ICD Code: Z72.0 - Tobacco use (2) Pathological fracture, left femur, initial encounter for fracture ICD Code: M84.452A - Pathological fracture, left femur, initial encounter for fracture Status: Acute (3) Sepsis secondary to UTI ICD Code: A41.9 - Sepsis, unspecified organism; N39.0 - Urinary tract infection , site not specified Status: Acute (4) UTI (urinary tract infection) ICD Code: N39.0 - Urinary tract infection, site not specified Status: Resolved (5) Hydronephrosis, right ICD Code: N13.30 - Unspecified hydronephrosis (6) Malnutrition ICD Code: E46 - Unspecified protein-calorie malnutrition (7) Uterine cancer ICD Code: C55 - Malignant neoplasm of uterus, part unspecified Status: Chronic (8) Hypothyroidism ICD Code: E03.9 - Hypothyroidism, unspecified (9) Carcinosarcoma of uterus ICD Code: 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 Abdominal pain Ileus - Abdomen pain is much improved. - CT abdomen/pelvis shows significant metastasis as well as ileus. - Will continue Octreotide, Dexamethasone for Ileus - IV haloperidol for nausea, vomiting. - I discussed with Dr. Clifton on 12/28/2017 regarding possible colonic stent placement for ileus. However since patient's symptoms are improved, we will not consider coronary stent at this point. It can be considered in future should her problems return. Can be arranged in the outpatient setting by interventional radiology. -We will plan on discharging patient home tomorrow 12/30/2017. L femur fracture - Pathologic given little to no trauma and evidence of 3.8 cm lytic lesion, likely metastatic uterine cancer - Ortho consulted, s/p ORIF with intratrochanteric nail POD3. Appreciate their intervention - Recommend partial WB LLE and FWB RLE - Rad onc consulted -patient received radiation therapy on 12/28/2017. - Palliative care following - Pain control Sepsis - resolved - Was started on IV cefepime on admission as she met sepsis criteria (WBC>12, tachycardia, source of infection possible UTI) - Initial WBC 23.6 trending down to 11.8 on 12/24/2017. - U/A with small leukocyte esterase but culture with mixed loyda - Blood cultures NGTD - Discontinued cefepime as white count trending down and patient has remained afebrile - Monitor clinically for fevers, signs of infection, etc. Uterine carcinosarcoma - S/P radiation and systemic chemo with Taxol and carboplatin x 6 cycles - Now with likely metastasis - Dr. Clifton's team is following and has recommended hospice. - Continue home Megace - Palliative following Hypothyroidism - TSH mildly elevated at 5.69 - Synthroid 25 mcg - Will need repeat TSH in 4-6 weeks post-discharge. Emphysema - CXR with large emphysematous bleb involving left apex, unchanged from previous study, and chronic interstitial changes - Supplemental O2 - DuoNeb PRN - Incentive spirometer Depression - Continue home sertraline - Ativan PRN GERD - Continue home PPI - Add Maalox as needed DVT prophylaxis: Lovenox Problem Qualifiers (1) Uterine cancer: Azalea Chavarria DO Dec 29, 2017 09:24
[2017-12-29] MEDS: MORPHINE SULFATE 60 MG CONTROLLED RELEASE TAB PO SCH ×2 (09:38→20:53)
[2017-12-29] MEDS: SERTRALINE HCL 50 MG TAB PO SCH (09:39)
[2017-12-29] MEDS: PANTOPRAZOLE SOD 20 MG DELAYED RELEASE TAB PO SCH (09:39)
[2017-12-29] MEDS: DEXAMETHASONE SOD PHOS 4 MG/ML VIAL IV PUSH SCH ×2 (09:44→20:54)
[2017-12-29] MEDS: NICOTINE 14 MG/24 HR PATCH T-DERMAL SCH (09:54)
[2017-12-29] MEDS: cefTRIAXone INJ 1,000 MG in SODIUM CHLORIDE 0.9% INJ 100 ML IV SCH (09:54)
[2017-12-29 10:51] VITALS: BP 145/91; PULSE 83; RESP 18; TEMP 99.7; O2SAT 100
[2017-12-29] MEDS: OCTREOTIDE INJ 100 MCG/ML VIAL SQ SCH ×2 (10:59→21:38)
[2017-12-29] MEDS: SODIUM CHLORIDE 0.9% FLUSH 10 ML FLUSH IV FLUSH SCH ×2 (11:00→20:55)
[2017-12-29 12:51] VITALS: BP 171/105; PULSE 91; RESP 20; TEMP 100.4; O2SAT 99
[2017-12-29] MEDS: BUDESONIDE-FORMOTEROL 80/4.5 MCG INHALER INH SCH ×2 (19:01→21:40)
[2017-12-29] MEDS: ALBUTEROL SULFATE 90 MCG/ACT HFA 8 GM INHALER INH PRN (19:01)
[2017-12-29 20:44] VITALS: BP 166/99; PULSE 86; RESP 16; TEMP 98.5; O2SAT 99
[2017-12-29] MEDS: LACTATED RINGER'S 1000 ML INJ 1,000 ML IV SCH (21:10)
[2017-12-29] MEDS: ONDANSETRON ODT 4 MG TAB SL PRN (21:38)
[2017-12-29] MEDS: LORazepam 0.5 MG TAB PO PRN (23:34)
[2017-12-30] VITALS (8 sets, daily range): BP systolic 158–173; BP diastolic 92–100; PULSE 83–93; RESP 17–20; TEMP 98.2–99.2; O2SAT 98–100
[2017-12-30] MEDS: ONDANSETRON ODT 4 MG TAB SL PRN ×2 (04:04→20:37)
[2017-12-30] MEDS: ACETAMINOPHEN/HYDROcodone 325 MG/7.5 MG TAB PO PRN ×4 (04:06→18:54)
[2017-12-30] MEDS: MORPHINE SULFATE 4 MG/ML INJ IV PUSH PRN ×2 (05:55→20:33)
[2017-12-30] MEDS: LEVOTHYROXINE SODIUM 25 MCG TAB PO SCH (05:57)
[2017-12-30] MEDS: ENOXAPARIN SODIUM 30 MG/0.3 ML SYRINGE SQ SCH (05:57)
[2017-12-30] MEDS: MORPHINE SULFATE 60 MG CONTROLLED RELEASE TAB PO SCH ×2 (08:05→20:33)
[2017-12-30] MEDS: ALBUTEROL SULFATE 90 MCG/ACT HFA 8 GM INHALER INH PRN (08:08)
[2017-12-30] MEDS: MEGESTROL ACETATE 40 MG TAB PO SCH ×4 (08:09→20:33)
[2017-12-30] MEDS: SERTRALINE HCL 50 MG TAB PO SCH (08:10)
[2017-12-30] MEDS: PANTOPRAZOLE SOD 20 MG DELAYED RELEASE TAB PO SCH (08:11)
[2017-12-30] MEDS: DEXAMETHASONE SOD PHOS 4 MG/ML VIAL IV PUSH SCH ×2 (08:13→20:33)
[2017-12-30] MEDS: cefTRIAXone INJ 1,000 MG in SODIUM CHLORIDE 0.9% INJ 100 ML IV SCH (08:13)
[2017-12-30] MEDS: NICOTINE 14 MG/24 HR PATCH T-DERMAL SCH (08:13)
[2017-12-30] MEDS: BUDESONIDE-FORMOTEROL 80/4.5 MCG INHALER INH SCH ×2 (08:14→20:35)
[2017-12-30] MEDS: POLYETHYLENE GLYCOL 17 GM PKG PO SCH (09:00)
[2017-12-30] MEDS: SODIUM CHLOR 0.9% 1000 ML INJ 1,000 ML IV SCH ×2 (09:00→19:00)
[2017-12-30] MEDS: DOCUSATE SODIUM 50 MG/SENNA 8.6 MG TAB PO SCH ×2 (09:00→20:36)
[2017-12-30] MEDS: REMOVE OLD PATCH T-DERMAL SCH (09:00)
[2017-12-30] MEDS: HALOPERIDOL LACTATE 5 MG/ML AMP IV PRN ×2 (09:31→23:54)
--- NOTE | 2017-12-30 09:32 | HHI.PR ---
Subjective Remarks Follow-up for ileus, abdominal pain, uterine cancer, left femur fracture. Patient is not doing as well as she was doing yesterday. She feels that she cannot go home today. She is having some nausea. Objective Vitals Vital Signs Date Time Temp Pulse Resp B/P (MAP) Pulse Ox O2 Delivery O2 Flow Rate FiO2 12/30/17 08:21 98.4 93 20 161/97 (118) 100 12/30/17 08:05 99 Nasal Cannula 3.00 12/30/17 04:09 98.4 84 17 159/93 (115) 98 12/30/17 00:10 99.1 83 17 158/100 (119) 98 12/29/17 20:44 98.5 86 16 166/99 (121) 99 12/29/17 20:44 99 Nasal Cannula 3.00 Humidified 12/29/17 19:07 18 12/29/17 19:00 98 Nasal Cannula 2.00 12/29/17 12:51 100.4 91 20 171/105 (127) 99 12/29/17 10:51 99.7 83 18 145/91 (109) 100 12/29/17 10:38 18 I/O 12/29/17 12/29/17 12/29/17 12/30/17 12/30/17 12/30/17 07:00 15:00 23:00 07:00 15:00 23:00 Intake Total 240 ml 1200 ml 480 ml Output Total 1500 ml 876 ml 200 ml Balance -1260 ml 324 ml 280 ml Intake Oral 240 ml 1200 ml 480 ml Output Urine Total 1500 ml 875 ml 200 ml Stool Total 1 ml # Voids 2 2 # Bowel Movements 1 1 3 1 Result Diagram: 12/27/17 1345 Imaging Last Impressions Abdomen X-Ray 12/27/17 0000 Signed Impressions: CONCLUSION: Mild to moderate gaseous distention of colon typical of a adynamic ileus/nonmec hanical obstruction. No free air. Right ureteral stent again demonstrated. Abdomen/Pelvis CT 12/24/17 0000 Signed Impressions: CONCLUSION: 1. Interval development of extensive metastatic disease throughout the enlarge d liver. 2. 11 mm noncalcified nodule within the right lower lobe consistent with possi ble metastatic focus. 3. Diffuse dilatation of the colon consistent with probable diffuse ileus or p ossible distal colonic obstruction. Fecal debris is noted within the rectosigmo id colon. 4. Scattered sclerotic foci within the lumbar spine and upper sacrum raising t he possibility of metastatic disease. Bone scan or PET/CT scan would be helpful for further evaluation if clinically indicated. 5. 5.5 x 5.0 cm uterine mass consistent with the patient's known uterine carci noma. 6. Emphysematous changes within the lung bases. 7. Anasarca. Hip X-Ray 12/21/17 0000 Signed Impressions: CONCLUSION: Fluoroscopic images during placement of a compression pin/intramedullary nino le ft femur Femur X-Ray 12/19/17 1525 Signed Impressions: CONCLUSION: Lytic lesion as above suspicious for metastatic disease. Chest X-Ray 12/19/17 1505 Signed Impressions: CONCLUSION: 1. Large emphysematous bleb involving the left lung apex. This is unchanged fr om previous. 2. Chronic interstitial changes throughout the pulmonary parenchyma. 3. [id number]-Anda in good position. Objective Remarks GENERAL: Alert, oriented 3, NAD. SKIN: Warm and dry. HEAD: Normocephalic. EYES: No scleral icterus. No injection or drainage. NECK: Supple, trachea midline. No JVD or lymphadenopathy. CARDIOVASCULAR: Regular rate and rhythm without murmurs, gallops, or rubs. RESPIRATORY: Breath sounds equal bilaterally. No accessory muscle use. GASTROINTESTINAL: Abdomen still somewhat firm, distended. Not much painful on palpation. MUSCULOSKELETAL: No cyanosis, or edema. BACK: Nontender without obvious deformity. No CVA tenderness. Procedures Date of Surgery: December 21, 2017 Preoperative Diagnosis: History of metastatic uterine sarcoma. Pathologic fracture left femur Postoperative Diagnosis: Same Procedure: Open treatment intramedullary rodding of pathologic left femur fracture with stroke and treat extended trochanteric nail and proximal and distal fixation. Biopsy of the left femur A/P Problem List: (1) Tobacco abuse ICD Code: Z72.0 - Tobacco use (2) Pathological fracture, left femur, initial encounter for fracture ICD Code: M84.452A - Pathological fracture, left femur, initial encounter for fracture Status: Acute (3) Sepsis secondary to UTI ICD Code: A41.9 - Sepsis, unspecified organism; N39.0 - Urinary tract infection , site not specified Status: Acute (4) UTI (urinary tract infection) ICD Code: N39.0 - Urinary tract infection, site not specified Status: Resolved (5) Hydronephrosis, right ICD Code: N13.30 - Unspecified hydronephrosis (6) Malnutrition ICD Code: E46 - Unspecified protein-calorie malnutrition (7) Uterine cancer ICD Code: C55 - Malignant neoplasm of uterus, part unspecified Status: Chronic (8) Hypothyroidism ICD Code: E03.9 - Hypothyroidism, unspecified (9) Carcinosarcoma of uterus ICD Code: 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 Abdominal pain Ileus - Abdomen pain is much improved. - CT abdomen/pelvis shows significant metastasis as well as ileus. - Will continue Octreotide, Dexamethasone for Ileus - IV haloperidol for nausea, vomiting. - Patient does not feel ready to go home today. Will continue current treatments. - Hospice is following. L femur fracture - Pathologic given little to no trauma and evidence of 3.8 cm lytic lesion, likely metastatic uterine cancer - Ortho consulted, s/p ORIF with intratrochanteric nail POD3. Appreciate their intervention - Recommend partial WB LLE and FWB RLE - Rad onc consulted -patient received radiation therapy on 12/28/2017. - Palliative care following - Pain control Sepsis - resolved - Was started on IV cefepime on admission as she met sepsis criteria (WBC>12, tachycardia, source of infection possible UTI) - Initial WBC 23.6 trending down to 11.8 on 12/24/2017. - U/A with small leukocyte esterase but culture with mixed loyda - Blood cultures NGTD - Discontinued cefepime as white count trending down and patient has remained afebrile - Monitor clinically for fevers, signs of infection, etc. Uterine carcinosarcoma - S/P radiation and systemic chemo with Taxol and carboplatin x 6 cycles - Now with likely metastasis - Dr. Clifton's team is following and has recommended hospice. - Continue home Megace - Palliative following Hypothyroidism - TSH mildly elevated at 5.69 - Synthroid 25 mcg - Will need repeat TSH in 4-6 weeks post-discharge. Emphysema - CXR with large emphysematous bleb involving left apex, unchanged from previous study, and chronic interstitial changes - Supplemental O2 - DuoNeb PRN - Incentive spirometer Depression - Continue home sertraline - Ativan PRN GERD - Continue home PPI - Add Maalox as needed DVT prophylaxis: Lovenox Problem Qualifiers (1) Uterine cancer: Azalea Chavarria DO Dec 30, 2017 9:31 am
[2017-12-30] MEDS: OCTREOTIDE INJ 100 MCG/ML VIAL SQ SCH ×2 (09:43→20:36)
[2017-12-30] MEDS: SODIUM CHLORIDE 0.9% FLUSH 10 ML FLUSH IV FLUSH SCH ×2 (09:44→20:34)
[2017-12-30] MEDS: clonazePAM 0.5 MG TAB PO SCH ×3 (10:40→20:33)
[2017-12-30] MEDS: LACTATED RINGER'S 1000 ML INJ 1,000 ML IV SCH ×2 (11:08→23:38)
[2017-12-30] MEDS: RESP: ALBUTEROL 2.5 MG/IPRATROPIUM 0.5 MG NEB (PRN) NEB (19:34)
[2017-12-31] MEDS: ACETAMINOPHEN/HYDROcodone 325 MG/7.5 MG TAB PO PRN ×5 (00:43→22:58)
[2017-12-31] MEDS: SODIUM CHLOR 0.9% 1000 ML INJ 1,000 ML IV SCH ×2 (05:00→15:00)
[2017-12-31 05:17] VITALS: BP 146/89; PULSE 86; RESP 18; TEMP 99.9; O2SAT 100
[2017-12-31] MEDS: clonazePAM 0.5 MG TAB PO SCH ×3 (05:22→20:59)
[2017-12-31] MEDS: ONDANSETRON ODT 4 MG TAB SL PRN ×2 (05:23→20:57)
[2017-12-31] MEDS: ENOXAPARIN SODIUM 30 MG/0.3 ML SYRINGE SQ SCH (05:23)
[2017-12-31] MEDS: LEVOTHYROXINE SODIUM 25 MCG TAB PO SCH (05:23)
[2017-12-31 08:40] VITALS: BP 137/87; PULSE 96; RESP 18; TEMP 98; O2SAT 100
[2017-12-31] MEDS: POLYETHYLENE GLYCOL 17 GM PKG PO SCH (08:40)
[2017-12-31] MEDS: DOCUSATE SODIUM 50 MG/SENNA 8.6 MG TAB PO SCH ×2 (08:40→20:59)
[2017-12-31] MEDS: NICOTINE 14 MG/24 HR PATCH T-DERMAL SCH (09:00)
[2017-12-31] MEDS: REMOVE OLD PATCH T-DERMAL SCH (09:00)
--- NOTE | 2017-12-31 09:08 | HHI.PR ---
Subjective Remarks Follow-up for ileus, abdominal pain, uterine cancer, left femur fracture. Pt is still having similar abdominal pain, nausea. No fever, chills. She is aware of hospice care center. However, she would rather go home with hospice. Hopefully on Monday01/01/2018. Objective Vitals Vital Signs Date Time Temp Pulse Resp B/P (MAP) Pulse Ox O2 Delivery O2 Flow Rate FiO2 12/31/17 08:40 98.0 96 18 137/87 (104) 100 12/31/17 05:17 99.9 86 18 146/89 (108) 100 12/30/17 23:48 99.2 90 20 159/92 (114) 98 12/30/17 20:39 98.2 93 20 173/97 (122) 100 12/30/17 19:34 99 Nasal Cannula 3.00 12/30/17 19:00 3.00 12/30/17 18:00 98 Room Air 3.00 12/30/17 18:00 98.8 87 18 161/94 (116) 98 12/30/17 13:36 98.7 90 18 163/94 (117) 100 I/O 12/30/17 12/30/17 12/30/17 12/31/17 12/31/17 12/31/17 07:00 15:00 23:00 07:00 15:00 23:00 Intake Total 480 ml 960 ml 480 ml Output Total 200 ml 1 ml 1450 ml Balance 280 ml 959 ml -970 ml Intake Oral 480 ml 960 ml 480 ml Output Urine Total 200 ml 1450 ml Stool Total 1 ml # Voids 2 4 # Bowel Movements 1 Result Diagram: 12/27/17 1345 Imaging Last Impressions Abdomen X-Ray 12/27/17 0000 Signed Impressions: CONCLUSION: Mild to moderate gaseous distention of colon typical of a adynamic ileus/nonmec hanical obstruction. No free air. Right ureteral stent again demonstrated. Abdomen/Pelvis CT 12/24/17 0000 Signed Impressions: CONCLUSION: 1. Interval development of extensive metastatic disease throughout the enlarge d liver. 2. 11 mm noncalcified nodule within the right lower lobe consistent with possi ble metastatic focus. 3. Diffuse dilatation of the colon consistent with probable diffuse ileus or p ossible distal colonic obstruction. Fecal debris is noted within the rectosigmo id colon. 4. Scattered sclerotic foci within the lumbar spine and upper sacrum raising t he possibility of metastatic disease. Bone scan or PET/CT scan would be helpful for further evaluation if clinically indicated. 5. 5.5 x 5.0 cm uterine mass consistent with the patient's known uterine carci noma. 6. Emphysematous changes within the lung bases. 7. Anasarca. Hip X-Ray 12/21/17 0000 Signed Impressions: CONCLUSION: Fluoroscopic images during placement of a compression pin/intramedullary nino le ft femur Femur X-Ray 12/19/17 1525 Signed Impressions: CONCLUSION: Lytic lesion as above suspicious for metastatic disease. Chest X-Ray 12/19/17 1505 Signed Impressions: CONCLUSION: 1. Large emphysematous bleb involving the left lung apex. This is unchanged fr om previous. 2. Chronic interstitial changes throughout the pulmonary parenchyma. 3. [id number] in good position. Objective Remarks GENERAL: Alert, oriented 3, NAD. SKIN: Warm and dry. HEAD: Normocephalic. EYES: No scleral icterus. No injection or drainage. NECK: Supple, trachea midline. No JVD or lymphadenopathy. CARDIOVASCULAR: Regular rate and rhythm without murmurs, gallops, or rubs. RESPIRATORY: Breath sounds equal bilaterally. No accessory muscle use. GASTROINTESTINAL: Abdomen still somewhat firm, distended. Not much painful on palpation. MUSCULOSKELETAL: No cyanosis, or edema. BACK: Nontender without obvious deformity. No CVA tenderness. Procedures Date of Surgery: December 21, 2017 Preoperative Diagnosis: History of metastatic uterine sarcoma. Pathologic fracture left femur Postoperative Diagnosis: Same Procedure: Open treatment intramedullary rodding of pathologic left femur fracture with stroke and treat extended trochanteric nail and proximal and distal fixation. Biopsy of the left femur A/P Problem List: (1) Tobacco abuse ICD Code: Z72.0 - Tobacco use (2) Pathological fracture, left femur, initial encounter for fracture ICD Code: M84.452A - Pathological fracture, left femur, initial encounter for fracture Status: Acute (3) Sepsis secondary to UTI ICD Code: A41.9 - Sepsis, unspecified organism; N39.0 - Urinary tract infection , site not specified Status: Acute (4) UTI (urinary tract infection) ICD Code: N39.0 - Urinary tract infection, site not specified Status: Resolved (5) Hydronephrosis, right ICD Code: N13.30 - Unspecified hydronephrosis (6) Malnutrition ICD Code: E46 - Unspecified protein-calorie malnutrition (7) Uterine cancer ICD Code: C55 - Malignant neoplasm of uterus, part unspecified Status: Chronic (8) Hypothyroidism ICD Code: E03.9 - Hypothyroidism, unspecified (9) Carcinosarcoma of uterus ICD Code: 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 Abdominal pain Ileus - Abdomen pain is much improved. - CT abdomen/pelvis shows significant metastasis as well as ileus. - Will continue Octreotide, Dexamethasone for Ileus - IV haloperidol for nausea, vomiting. - Hospice is following. We will discuss with Dr. Clifton and hospice to see if patient can be discharged home with hospice. Patient is not keen on going to [facility]. L femur fracture - Pathologic given little to no trauma and evidence of 3.8 cm lytic lesion, likely metastatic uterine cancer - Ortho consulted, s/p ORIF with intratrochanteric nail POD3. Appreciate their intervention - Recommend partial WB LLE and FWB RLE - Rad onc consulted -patient received radiation therapy on 12/28/2017. - Palliative care following - Pain control Sepsis - resolved - Was started on IV cefepime on admission as she met sepsis criteria (WBC>12, tachycardia, source of infection possible UTI) - Initial WBC 23.6 trending down to 11.8 on 12/24/2017. - U/A with small leukocyte esterase but culture with mixed loyda - Blood cultures NGTD - Discontinued cefepime as white count trending down and patient has remained afebrile - Monitor clinically for fevers, signs of infection, etc. Uterine carcinosarcoma - S/P radiation and systemic chemo with Taxol and carboplatin x 6 cycles - Now with likely metastasis - Dr. Clifton's team is following and has recommended hospice. - Continue home Megace - Palliative following Hypothyroidism - TSH mildly elevated at 5.69 - Synthroid 25 mcg - Will need repeat TSH in 4-6 weeks post-discharge. Emphysema - CXR with large emphysematous bleb involving left apex, unchanged from previous study, and chronic interstitial changes - Supplemental O2 - DuoNeb PRN - Incentive spirometer Depression - Continue home sertraline - Ativan PRN GERD - Continue home PPI - Add Maalox as needed DVT prophylaxis: Lovenox Discharge plan: There is not much to add in-patient. I think it would be reasonable for patient to go home with hospice tomorrow 01/01/2018. Problem Qualifiers (1) Uterine cancer: Azalea Chavarria DO Dec 31, 2017 09:08
[2017-12-31] MEDS: OCTREOTIDE INJ 100 MCG/ML VIAL SQ SCH ×2 (10:12→20:59)
[2017-12-31] MEDS: PANTOPRAZOLE SOD 20 MG DELAYED RELEASE TAB PO SCH (10:12)
[2017-12-31] MEDS: SERTRALINE HCL 50 MG TAB PO SCH (10:13)
[2017-12-31] MEDS: MEGESTROL ACETATE 40 MG TAB PO SCH ×4 (10:13→20:59)
[2017-12-31] MEDS: MORPHINE SULFATE 60 MG CONTROLLED RELEASE TAB PO SCH ×2 (10:14→20:58)
[2017-12-31] MEDS ORDERED: MORPHINE SULFATE 4 MG/ML INJ IV PUSH PRN (10:15)
[2017-12-31] MEDS: DEXAMETHASONE SOD PHOS 4 MG/ML VIAL IV PUSH SCH ×2 (10:16→20:58)
[2017-12-31] MEDS: cefTRIAXone INJ 1,000 MG in SODIUM CHLORIDE 0.9% INJ 100 ML IV SCH (10:16)
[2017-12-31] MEDS: BUDESONIDE-FORMOTEROL 80/4.5 MCG INHALER INH SCH ×2 (10:17→20:58)
[2017-12-31] MEDS: SODIUM CHLORIDE 0.9% FLUSH 10 ML FLUSH IV FLUSH SCH ×2 (10:17→20:58)
[2017-12-31] MEDS: LACTATED RINGER'S 1000 ML INJ 1,000 ML IV SCH (12:08)
[2017-12-31 12:22] VITALS: BP 144/93; PULSE 97; RESP 18; TEMP 99.5; O2SAT 100
[2017-12-31 17:00] VITALS: BP 133/87; PULSE 95; RESP 18; TEMP 98.7; O2SAT 99
[2017-12-31 21:09] VITALS: BP 172/90; PULSE 97; RESP 18; TEMP 98.8; O2SAT 100
[2018-01-01] VITALS: BP 166/95; PULSE 90; RESP 18; TEMP 98.7; O2SAT 99
[2018-01-01] MEDS: LACTATED RINGER'S 1000 ML INJ 1,000 ML IV SCH (00:38)
[2018-01-01] MEDS: SODIUM CHLOR 0.9% 1000 ML INJ 1,000 ML IV SCH (01:00)
[2018-01-01 05:54] VITALS: BP 139/87; PULSE 89; RESP 18; TEMP 99.5; O2SAT 100
[2018-01-01] MEDS: LEVOTHYROXINE SODIUM 25 MCG TAB PO SCH (05:57)
[2018-01-01] MEDS: ACETAMINOPHEN/HYDROcodone 325 MG/7.5 MG TAB PO PRN ×2 (05:57→11:53)
[2018-01-01] MEDS: ENOXAPARIN SODIUM 30 MG/0.3 ML SYRINGE SQ SCH (05:57)
[2018-01-01] MEDS: clonazePAM 0.5 MG TAB PO SCH (05:57)
[2018-01-01] MEDS ORDERED: OCTREOTIDE SQ (08:21)
[2018-01-01] MEDS ORDERED: LEVO25TA4 PO (08:21)
[2018-01-01 09:17] VITALS: O2SAT 99
[2018-01-01 09:22] VITALS: BP 128/79; PULSE 96; RESP 20; TEMP 98.7; O2SAT 99
[2018-01-01] MEDS: SERTRALINE HCL 50 MG TAB PO SCH (09:26)
[2018-01-01] MEDS: MEGESTROL ACETATE 40 MG TAB PO SCH (09:26)
[2018-01-01] MEDS: OCTREOTIDE INJ 100 MCG/ML VIAL SQ SCH (09:26)
[2018-01-01] MEDS: PANTOPRAZOLE SOD 20 MG DELAYED RELEASE TAB PO SCH (09:26)
[2018-01-01] MEDS: MORPHINE SULFATE 60 MG CONTROLLED RELEASE TAB PO SCH (09:26)
[2018-01-01] MEDS: DEXAMETHASONE SOD PHOS 4 MG/ML VIAL IV PUSH SCH (09:27)
[2018-01-01] MEDS: NICOTINE 14 MG/24 HR PATCH T-DERMAL SCH (09:27)
[2018-01-01] MEDS: cefTRIAXone INJ 1,000 MG in SODIUM CHLORIDE 0.9% INJ 100 ML IV SCH (09:27)
[2018-01-01] MEDS: SODIUM CHLORIDE 0.9% FLUSH 10 ML FLUSH IV FLUSH SCH (09:28)
[2018-01-01] MEDS ORDERED: HALO2S PO (09:50)
[2018-01-01] MEDS ORDERED: MEGASUS2 PO (09:50)
--- NOTE | 2018-01-01 17:30 | HHI.DS ---
Discharge Summary Admission Date December 19, 2017 at 18:14 Discharge Date: Jan 01, 2018 Admitting Diagnosis SEPSIS, PATHOLOGIC FX LEFT FEMUR (1) Tobacco abuse ICD Code: Z72.0 - Tobacco use (2) Pathological fracture, left femur, initial encounter for fracture ICD Code: M84.452A - Pathological fracture, left femur, initial encounter for fracture Status: Acute (3) Sepsis secondary to UTI ICD Code: A41.9 - Sepsis, unspecified organism; N39.0 - Urinary tract infection , site not specified Status: Acute (4) UTI (urinary tract infection) ICD Code: N39.0 - Urinary tract infection, site not specified Status: Resolved (5) Hydronephrosis, right ICD Code: N13.30 - Unspecified hydronephrosis (6) Malnutrition ICD Code: E46 - Unspecified protein-calorie malnutrition (7) Uterine cancer ICD Code: C55 - Malignant neoplasm of uterus, part unspecified Status: Chronic (8) Hypothyroidism ICD Code: E03.9 - Hypothyroidism, unspecified (9) Carcinosarcoma of uterus ICD Code: C55 - Malignant neoplasm of uterus, part unspecified Status: Chronic Procedures Date of Surgery: December 21, 2017 Preoperative Diagnosis: History of metastatic uterine sarcoma. Pathologic fracture left femur Postoperative Diagnosis: Same Procedure: Open treatment intramedullary rodding of pathologic left femur fracture with stroke and treat extended trochanteric nail and proximal and distal fixation. Biopsy of the left femur Brief History - From Admission Patient is a 57-year-old female initially presented to [place] emergency department with complaint of fever. Patient has a history of stage IV uterine cancer. Patient is seeing Dr. Clifton of gynecology oncology. She is previously had chemo and radiation. Recently had chemotherapy. Last chemotherapy was about a week and half ago. Previously had blood transfusion 2 days ago. Became short of breath for several months has been on home oxygen since last March she still smokes at least a half a pack if not more a day of cigarettes. Has severe pain in her left leg for several days and has not been able to walk on left leg due to pain. Having pain in her left femur. Also noted to have some swelling in her right foot for the past day or so. Was found to have a left femur pathological fracture. Has uterine cancer with metastasis to her neck believe Imaging Last Impressions Abdomen X-Ray 12/27/17 0000 Signed Impressions: CONCLUSION: Mild to moderate gaseous distention of colon typical of a adynamic ileus/nonmec hanical obstruction. No free air. Right ureteral stent again demonstrated. Abdomen/Pelvis CT 12/24/17 0000 Signed Impressions: CONCLUSION: 1. Interval development of extensive metastatic disease throughout the enlarge d liver. 2. 11 mm noncalcified nodule within the right lower lobe consistent with possi ble metastatic focus. 3. Diffuse dilatation of the colon consistent with probable diffuse ileus or p ossible distal colonic obstruction. Fecal debris is noted within the rectosigmo id colon. 4. Scattered sclerotic foci within the lumbar spine and upper sacrum raising t he possibility of metastatic disease. Bone scan or PET/CT scan would be helpful for further evaluation if clinically indicated. 5. 5.5 x 5.0 cm uterine mass consistent with the patient's known uterine carci noma. 6. Emphysematous changes within the lung bases. 7. Anasarca. Hip X-Ray 12/21/17 0000 Signed Impressions: CONCLUSION: Fluoroscopic images during placement of a compression pin/intramedullary nino le ft femur Femur X-Ray 12/19/17 1525 Signed Impressions: CONCLUSION: Lytic lesion as above suspicious for metastatic disease. Chest X-Ray 12/19/17 1505 Signed Impressions: CONCLUSION: 1. Large emphysematous bleb involving the left lung apex. This is unchanged fr om previous. 2. Chronic interstitial changes throughout the pulmonary parenchyma. 3. [id number] in good position. PE at Discharge GENERAL: Alert, oriented 3, NAD. SKIN: Warm and dry. HEAD: Normocephalic. EYES: No scleral icterus. No injection or drainage. NECK: Supple, trachea midline. No JVD or lymphadenopathy. CARDIOVASCULAR: Regular rate and rhythm without murmurs, gallops, or rubs. RESPIRATORY: Breath sounds equal bilaterally. No accessory muscle use. GASTROINTESTINAL: Abdomen still somewhat firm, distended. Not much painful on palpation. MUSCULOSKELETAL: No cyanosis, or edema. BACK: Nontender without obvious deformity. No CVA tenderness. Pt update on day of discharge Patient feels better today. Appetite is pretty good. No fever, chills. Abdominal pain is tolerable. She is eating well. Wants to go home today with hospice. Hospital Course 57 year old female with history of uterine carcinosarcoma admitted on 12/19 for fever, weakness, and progressive left leg pain found to have a pathologic femur fracture. Abdominal pain Ileus - Abdomen pain is much improved. - CT abdomen/pelvis shows significant metastasis as well as ileus. - Octreotide, Dexamethasone for Ileus - IV haloperidol for nausea, vomiting. Upon discharge, if possible, continue Octreotide, haloperidol. - Hospice is following - discharge today with hospice. Discussed with hospice nurse. L femur fracture - Pathologic given little to no trauma and evidence of 3.8 cm lytic lesion, likely metastatic uterine cancer - Ortho consulted, s/p ORIF with intratrochanteric nail POD3. Appreciate their intervention - Recommend partial WB LLE and FWB RLE - Rad onc consulted -patient received radiation therapy on 12/28/2017. - Pain control Sepsis - resolved - Was started on IV cefepime on admission as she met sepsis criteria (WBC>12, tachycardia, source of infection possible UTI) - Initial WBC 23.6 trending down to 11.8 on 12/24/2017. - U/A with small leukocyte esterase but culture with mixed loyda - Blood cultures NGTD - Discontinued cefepime as white count trending down and patient has remained afebrile - Monitor clinically for fevers, signs of infection, etc. Uterine carcinosarcoma - S/P radiation and systemic chemo with Taxol and carboplatin x 6 cycles - Now with likely metastasis - Dr. Clifton's team is following and has recommended hospice. - Continue home Megace - Palliative following Hypothyroidism - TSH mildly elevated at 5.69 - Synthroid 25 mcg - Will need repeat TSH in 4-6 weeks post-discharge. Emphysema - CXR with large emphysematous bleb involving left apex, unchanged from previous study, and chronic interstitial changes - Supplemental O2 - DuoNeb PRN - Incentive spirometer Depression - Continue home sertraline - Ativan PRN GERD - Continue home PPI - Add Maalox as needed DVT prophylaxis: Lovenox Pt Condition on Discharge: Good Discharge Disposition: Hospice/ Home Discharge Time: <= 30 minutes Discharge Instructions DIET: Follow Instructions for: As Tolerated, No Restrictions Activities you can perform: Regular-No Restrictions Follow up Referrals: Appointment for Follow Up New Medications: Bedside Commode (Bedside Commode) 1 Mis Mis EA .XX DIRECTED, #1 Haloperidol Liq (Haloperidol Liq) 2 Mg/Ml Conc 2 MG PO Q6H for Nausea/Vomiting for 10 Days, #20 ML 0 Refills Megestrol ES Liq (Megace ES Liq) 625 Mg/5 Ml Susp 625 MG PO DAILY for Improve Appetite, #240 ML 0 Refills Levothyroxine (Levothyroxine) 25 Mcg Tab 25 MCG PO DAILY@0600 for Thyroid, #30 TAB [Octreotide Inj] () 100 MCG/ML INJ 100 MCG SQ Q12HR for Ileus, #30 APPL Continued Medications: Albuterol 18 GM Inh (Ventolin Hfa 18 GM Inh) 90 Mcg/Act Aer 2 PUFF INH Q4H PRN for SHORTNESS OF BREATH, #1 INHALER 3 Refills Fluticasone-Salmeterol Inh (Advair Diskus Inh) 100-50 Mcg/Blist Aer 1 PUFF INH BID for Asthma Management, #1 INHALER 0 Refills Rinse mouth after use. Lorazepam (Ativan) 0.5 Mg Tab 0.5 MG PO DAILY PRN for ANXIETY AND/OR AGITATION, TAB 0 Refills Morphine ER (Morphine ER) 60 Mg Tab 60 MG PO Q12HR for Pain Management, #30 TAB 0 Refills Ondansetron Odt (Zofran Odt) 4 Mg Tab 4 MG SL Q6HR PRN for Nausea/Vomiting, #20 TAB 0 Refills Oxycodone (Oxycodone) 5 Mg Tab 5 MG PO Q4H PRN for moderate to severe pain, #30 TAB 0 Refills Pantoprazole (Protonix) 20 Mg Tab 20 MG PO DAILY for Reflux, #30 TAB 0 Refills Sertraline (Sertraline) 25 Mg Tab 25 MG PO DAILY, #30 TAB 0 Refills Discontinued Medications: Albuterol 8.5 GM Inh (Proair Hfa 8.5 GM Inh) 90 Mcg/Act Aer 2 PUFF INH Q4-6H PRN for SHORTNESS OF BREATH, #1 INHALER 0 Refills 108 mcg/actuation Megestrol (Megestrol) 40 Mg Tab 40 MG PO QID, TAB 0 Refills Azalea Chavarria DO Jan 01, 2018 17:30
== END 2018-01-01 12:30 | disposition hospice, home (50) | DRG 854 ==
LOC: PHED 14:27 → PHEDA 18:14 → HCIN 22:59
PROVIDERS: ADMIT Hospitalist; ATTEND Hospitalist
PROC: 0QB90ZX Excision of Left Femoral Shaft, Open Approach, Diagnostic (ICD-10-PCS; 2017-12-21)
PROC: 0QS906Z Reposition Left Femoral Shaft with Intramedullary Internal Fixation Device, Open Approach (ICD-10-PCS; principal; 2017-12-21 12:52)
DX: A41.9 Sepsis, unspecified organism (principal); C79.51 Secondary malignant neoplasm of bone; C79.89 Secondary malignant neoplasm of other specified sites; E46 Unspecified protein-calorie malnutrition; J43.9 Emphysema, unspecified; K56.0 Paralytic ileus; M84.552A Pathological fracture in neoplastic disease, left femur, initial encounter for fracture; N13.30 Unspecified hydronephrosis; N39.0 Urinary tract infection, site not specified; Z99.81 Dependence on supplemental oxygen; D64.81 Anemia due to antineoplastic chemotherapy; C55 Malignant neoplasm of uterus, part unspecified; F17.210 Nicotine dependence, cigarettes, uncomplicated; F32.9 Major depressive disorder, single episode, unspecified; K21.9 Gastro-esophageal reflux disease without esophagitis; T45.1X5A Adverse effect of antineoplastic and immunosuppressive drugs, initial encounter; M54.9 Dorsalgia, unspecified; G89.29 Other chronic pain; G89.3 Neoplasm related pain (acute) (chronic); E03.9 Hypothyroidism, unspecified; R00.0 Tachycardia, unspecified; Z66 Do not resuscitate; Z87.440 Personal history of urinary (tract) infections; Z92.3 Personal history of irradiation
CPT/HCPCS: 71045; 73502; 73552; 74018; 74177; 76000; 77261; 77290; 77334; 80048; 80053; 81001; 83036; 83605; 83735; 84100; 84439; 84443; 85007; 85025; 85027; 87040; 87086; 88305; 88307; 88311; 94150; 94640; 94664; 96361; 96365; 96375; C1713; J0131; J0690; J0692; J0696; J0780; J1100; J1580; J1630; J1642; J1650; J1885; J2270; J2354; J2370; J2405; J2710; J2997; J7030; J7120; J7613; Q9967